=== PATIENT | female | born 1955 | race Caucasian/White ===

== ENCOUNTER 2020-03-20 10:56 | Emergency (ER) | payer MEDICAID, SELFPAY ==
[2020-03-20 11:11] VITALS: BP 122/87; PULSE 61; PULSE 83; RESP 18; TEMP 36.6; O2SAT 97; O2SAT 99; BMI 17.5
--- NOTE | 2020-03-20 11:26 | ED_ITS ---
HPI - Nausea/Vomiting/Diarrhea General Chief complaint: Nausea/Vomiting/Diarrhea Stated complaint: NAUSEA/VOMITING,COVID + Time Seen by Provider: 03/20/20 11:15 History of Present Illness HPI Narrative: 64-year-old male Coronavirus positive on March 16. Presents today with having nausea vomiting diarrhea that is getting worse over the last 2 days. Minimal coughing. Minimal fever. Diarrhea is yellow in color. No recent antibiotics. No travel history. Patient is from home. Extreme generalized malaise. Positive nausea associated with the symptoms Related Data Previous Rx's Medication Instructions Recorded acetaminophen 650 mg 650 mg PO Q8H PRN #90 tab 12/31/19 tablet,extended release folic acid 1 mg tablet 1 mg PO DAILY #30 tab 12/31/19 ondansetron 4 mg PO TID PRN 5 Days #10 tab 03/20/20 Allergies Allergy/AdvReac Type Severity Reaction Status Date / Time No Known Allergies Allergy Mild Unverified 11/20/19 17:16 [facility] Past Medical History Medical History (Updated 03/20/20 @ 12:27 by Madalyn Lauren MD) High blood cholesterol HTN (hypertension) Social History Social History Alcohol intake: current Alcohol intake frequency: a few times a week Alcohol type: beer Smoking Status: Current every day smoker Use of substances other than those prescribed or required for medical reasons: Yes Substance Use Type: Marijuana Substance Use Frequency: Daily Advance Directives: No Advance Directives Information Provided: No Physical Exam Vital Signs: Vital Signs: Last Vital Signs Temp 97.9 F 03/20/20 11:41 Pulse 78 03/20/20 11:41 Resp 16 03/20/20 11:41 BP 132/84 03/20/20 11:41 Pulse Ox 99 03/20/20 11:41 Body Mass Index 17.5 MDM - Nausea/Vomiting/Diarrhea MDM Narrative Medical decision making narrative: Patient well-appearing O2 sat 99% on room air. Positive coronavirus with nausea vomiting diarrhea. Labs unremarkable. Given hydration Zofran for nausea. Symptomatic Bree improved. Will discharge patient home. Medical Records Attestation: I reviewed the patient's medical records. Lab Data Attestation: I reviewed the patient's lab results. Result diagrams: 03/20/20 11:40 03/20/20 11:40 Labs: Lab Results 01/16/21 01/16/21 Range/Units 11:40 11:40 WBC 4.7 L (4.8-10.8) X10*3/uL RBC 4.45 (4.20-5.50) X10*6/uL Hgb 14.7 (12.0-16.0) g/dl Hct 42.9 (37-47) % MCV 96.4 (80-98) fL MCH 33.0 (27.0-33.0) pg MCHC 34.3 (31.0-35.0) g/dl RDW 11.4 (11.0-16.0) % Plt Count 235 (160-400) X10*3/uL MPV 9.2 L (9.4-12.3) fL Immature Gran % (Auto) 0.2 (0.0-0.4) % Neut % (Auto) 67.1 (45-73) % Lymph % (Auto) 20.9 (20-40) % [place] % (Auto) 11.6 H (2-11) % Eos % (Auto) 0.0 (0-4) % Baso % (Auto) 0.2 (0-2) % Lymph # (Auto) 1.0 L (1.2-4.9) X10*3/uL [place] # (Auto) 0.6 (0.1-1.2) X10*3/uL Eos # (Auto) 0.0 (0.0-0.4) X10*3/uL Baso # (Auto) 0.0 (0.0-0.2) X10*3/uL Abs Immat Gran (auto) 0.01 (0.00-0.03) X10*3/uL Absolute Neuts (auto) 3.2 (2.0-8.3) X10*3/uL Absolute Nucleated RBC 0.000 (0.0-0.012) X10*3/uL Nucleated RBC % (auto) 0.0 (0.0-0.2) /100WBC Sodium 132 L (135-145) mmol/L Potassium 4.2 (3.3-5.1) mmol/l Chloride 95 L (96-108) mmol/L Carbon Dioxide 24 (22-29) mmol/L Anion Gap 17 (12-20) BUN 15 (9-16) mg/dL Creatinine 0.98 (0.5-1.4) mg/dL Estim Creat Clear Calc 42.2 Estimated GFR 58 Random Glucose 126 H (60-115) mg/dL Calcium 8.9 (8.4-10.2) mg/dL Total Bilirubin 0.3 (0.0-1.0) mg/dL Direct Bilirubin < 0.2 (0.0-0.5) mg/dL AST 23 (5-31) U/L ALT 12 (0-31) U/L Alkaline Phosphatase 108 (39-117) U/L Total Protein 7.0 (6.5-8.0) g/dL Albumin 4.1 (3.5-5.0) g/dL Discharge Plan Discharge Clinical Impression: COVID-19, Diarrhea Patient Disposition: Home, Self-Care Instructions: Dehydration (ED), COVID-19 (Coronavirus Disease 2019) (ED) Prescriptions: New ondansetron 4 mg tablet,disintegrating 4 mg PO TID PRN (Reason: nausea and vomiting) 5 Days Qty: 10 RF: 0 No Action folic acid 1 mg tablet 1 mg PO DAILY Qty: 30 RF: 6 acetaminophen 650 mg tablet extended release 650 mg PO Q8H PRN (Reason: pain) Qty: 90 RF: 5 Referrals: [facility] [Primary Care Provider] - 2 days
[2020-03-20 11:41] VITALS: BP 132/84; PULSE 78; RESP 16; TEMP 36.6; O2SAT 99
[2020-03-20 11:49] LABS: MANUAL DIFF FLAG NO
[2020-03-20] MEDS: 0.9 % Sodium Chloride 1,000 ML 999 ML IV (11:50)
[2020-03-20 11:51] LABS: Basophils Percent Auto 0.2 % (0-2); Hematocrit 42.9 % (37-47); Hemoglobin 14.7 g/dl (12.0-16.0); Imm Gran Abs Auto 0.01 X10*3/uL (0.00-0.03); Imm Gran Pct Auto 0.2 % (0.0-0.4); Lymphocytes Percent Auto 20.9 % (20-40); Mean Corpuscular HGB Conc 34.3 g/dl (31.0-35.0); Mean Corpuscular Volume 96.4 fL (80-98); Mean Platelet Volume 9.2 fL (9.4-12.3); Monocytes Absolute Auto 0.6 X10*3/uL (0.1-1.2); Monocytes Percent Auto 11.6 % (2-11); Neutrophils Absolute Auto 3.2 X10*3/uL (2.0-8.3); Neutrophils Percent Auto 67.1 % (45-73); Platelet Count 235 X10*3/uL (160-400); Red Blood Count 4.45 X10*6/uL (4.20-5.50); Red Cell Distribution Width 11.4 % (11.0-16.0); White Blood Count 4.7 X10*3/uL (4.8-10.8)
[2020-03-20 12:13] LABS: Alanine Aminotransferase 12 U/L (0-31); Albumin Level 4.1 g/dL (3.5-5.0); Alkaline Phosphatase 108 U/L (39-117); Anion Gap 17 (12-20); Aspartate Amino Transferase 23 U/L (5-31); Bilirubin Direct < 0.2 mg/dL (0.0-0.5); Bilirubin Total 0.3 mg/dL (0.0-1.0); Blood Urea Nitrogen 15 mg/dL (9-16); Calcium 8.9 mg/dL (8.4-10.2); Carbon Dioxide 24 mmol/L (22-29); Chloride 95 mmol/L (96-108); Creatinine Clr Calc Pharmacy 42.2; Estimated Glomerular Filt Rate 58; Glucose Random 126 mg/dL (60-115); Potassium 4.2 mmol/l (3.3-5.1); Sodium 132 mmol/L (135-145)
[2020-03-20 13:47] VITALS: BP 148/96; PULSE 60; RESP 18; TEMP 37.3; O2SAT 99
[2020-03-20 14:00] VITALS: BP 132/77; PULSE 67; RESP 16; TEMP 37.2; O2SAT 99
== END 2020-03-20 14:25 | disposition home or self-care (01) ==
PROVIDERS: Emergency Provider Emergency Medicine Emergency Medical Services
DX: U07.1 COVID-19 (principal); R11.2 Nausea with vomiting, unspecified; E86.0 Dehydration
CPT/HCPCS: 36415; 80048; 80076; 85025; 96361; 96374; 99284

== ENCOUNTER 2021-01-07 22:40 | Emergency (ER) | payer MEDICAID, SELFPAY ==
--- NOTE | 2021-01-07 23:17 | ECG_ITS ---
Test Reason : SVT Blood Pressure : / mmHG Vent. Rate : 100 BPM Atrial Rate : 100 BPM P-R Int : 146 ms QRS Dur : 090 ms QT Int : 328 ms P-R-T Axes : 068 052 075 degrees QTc Int : 423 ms Normal sinus rhythm Nonspecific ST abnormality RSR' or QR pattern in V1 suggests right ventricular conduction delay Abnormal ECG When compared with ECG of 29-JAN-2016 16:00, Vent. rate has increased BY [address] depression in Inferior leads Lateral leads is new Referred By: Kieran Diaz Electronically Signed By:PERFECTO CALDERON MD
--- NOTE | 2021-01-07 23:18 | ED_ITS ---
HPI - Arrhythmia/Palpitations General Chief Complaint: Chest Pain Stated Complaint: heart is racing Time Seen by Provider: 01/07/21 23:16 Source: patient, family and planner internship Mode of arrival: ambulatory Limitations: no limitations History of Present Illness HPI narrative: 65-year-old female came in for evaluation of palpitation. This is a 65-year-old female who just used 2 bags of cocaine IV then started to feel palpitations and her heart is racing. Patient declined chest pain or shortness of breath. Patient arrived to the emergency room heart rate was in the 170s but patient otherwise hemodynamically stable. Related Data Previous Rx's Medication Instructions Recorded ondansetron 4 mg disintegrating 4 mg PO TID PRN 5 Days #10 tab 03/20/20 tablet ondansetron 4 mg disintegrating 4 mg PO TID PRN 5 Days #10 tab 03/20/20 tablet acetaminophen 650 mg 650 mg PO Q8H #90 tab 07/06/20 tablet,extended release folic acid 1 mg tablet 1 mg PO DAILY #90 tab 07/06/20 Allergies Allergy/AdvReac Type Severity Reaction Status Date / Time No Known Allergies Allergy Mild Unverified 11/20/19 17:16 Review of Systems Review of Systems: All other systems are reviewed and are negative Constitutional: Reports as per HPI and Reports no additional constitutional complaints Eyes: Reports as per HPI and Reports no additional eye complaints Reports system reviewed and no additional complaints, except as documented Cardiovascular: Reports as per HPI and Reports no additional cardiovascular complaints Respiratory: Reports as per HPI and Reports no additional respiratory complaints Gastrointestinal: Reports as per HPI and Reports no additional gastrointestinal complaints Genitourinary: Reports no additional female genitourinary complaints Musculoskeletal: Reports no additional musculoskeletal complaints Skin/Breast: Reports system reviewed and no additional complaints, except as docu Psychiatric: Reports no additional psychiatric complaints Endocrine: Reports no additional endocrine complaints Hematologic/Lymphatic: Reports no additional hematologic/lymphatic complaints Allergic/Immunologic: Reports no additional allergic/immunologic complaints Reports system reviewed and no additional complaints, except as documented and Reports Abnormal speech present [facility] Past Medical History Medical History High blood cholesterol HTN (hypertension) Social History Social History Alcohol intake: current Alcohol intake frequency: a few times a week Alcohol type: beer Substance Use Type: Marijuana Advance Directives: No Advance Directives Information Provided: No Physical Exam Vital Signs: Vital Signs: Last Vital Signs Pulse 175 H 01/07/21 23:19 Resp 16 01/07/21 23:19 BP 102/75 01/07/21 23:19 Pulse Ox 98 01/07/21 23:19 Body Mass Index 19.1 Vital signs have been reviewed as appeared to be correct. Blood pressure normal. Heart rate tachycardia of 187 beats per minute Respiration rate normal. Temperature normal. Oxygen saturation normal. Appearance: Alert. Oriented X3. No acute distress. Anxious Head: Normal external exam. Normocephalic. Atraumatic. No Walter signs noted. No raccoon eyes noted Eyes: PERRLA. EOMI. Conjunctiva and sclera normal. Eyelids normal. ENT: TM's Normal. Pharynx normal. Uvula midline. Moist mucous membranes. No trismus noted. No drooling noted. No muffled voice noted. Neck: Normal inspection. Neck supple. FROM. No adenopathy. Thyroid Normal. No meningeal signs. No neck mass noted. CVS: Rapid tachycardia at 178 beats per minute. Heart sound normal. No murmurs noted. Pulses normal throughout. Respiratory: No respiratory distress. Painless inspiration. Breath sounds normal. No wheezes/rales/rhonchi noted. Chest nontender. No accessory muscle usage noted or decreased air movement noted. Abdomen: Soft and nontender. Bowel sounds normal in all 4 quadrants. No distention noted. No organomegaly noted. No visible injury noted. Back: No CVA tenderness. Full range of motion noted. Skin: Skin warm and dry. Normal skin color. Normal skin turgor. No rashes/lesions/lacerations noted. Extremities: No lower extremity edema. Extremities exhibit normal range of motion. Extremities nontender. Neuro: Oriented X 3. Cranial nerve exam: II-XII are grossly intact No motor deficit. No sensory deficit. Reflexes normal. Course Reevaluation(s) Reevaluation #1: Patient was placed on the vehicle monitor technician and a 6 mg of adenosine were injected, heart rate is slowing down in the 90s, no hypotension, no chest pain, no shortness of breath. Time: 23:23 MDM - Arrhythmia/Palpitations Medical Records Attestation: I reviewed the patient's medical records. Lab Data Attestation: I reviewed the patient's lab results. Result diagrams: 01/07/21 23:21 01/07/21 23:21 Labs: Lab Results 01/07/21 01/07/21 01/07/21 Range/Units 23:21 23:21 23:21 WBC 8.1 (4.8-10.8) X10*3/uL RBC 4.67 (4.20-5.50) X10*6/uL Hgb 15.1 (12.0-16.0) g/dl Hct 43.6 (37.0-47.0) % MCV 93.4 (80.0-98.0) fL MCH 32.3 (27.0-33.0) pg MCHC 34.6 (31.0-35.0) g/dl RDW 11.4 (11.0-16.0) % Plt Count 259 (160-400) X10*3/uL MPV 9.1 L (9.4-12.3) fL Immature Gran % (Auto) 0.2 (0.0-0.4) % Neut % (Auto) 52.5 (45-73) % Lymph % (Auto) 33.5 (20-40) % [place] % (Auto) 12.1 H (2-11) % Eos % (Auto) 1.2 (0-4) % Baso % (Auto) 0.5 (0-2) % Lymph # (Auto) 2.7 (1.2-4.9) X10*3/uL [place] # (Auto) 1.0 (0.1-1.2) X10*3/uL Eos # (Auto) 0.1 (0.0-0.4) X10*3/uL Baso # (Auto) 0.0 (0.0-0.2) X10*3/uL Abs Immat Gran (auto) 0.02 (0.00-0.03) X10*3/uL Absolute Neuts (auto) 4.3 (2.0-8.3) x10*3/uL Absolute Nucleated RBC 0.000 (0.0-0.012) X10*3/uL Nucleated RBC % (auto) 0.0 (0.0-0.2) /100WBC Sodium 132 L (135-145) mmol/L Potassium 3.7 (3.3-5.1) mmol/L Chloride 94 L (96-108) mmol/L Carbon Dioxide 20 L (22-29) mmol/L Anion Gap 22 H (12-20) BUN 18 H (9-16) mg/dL Creatinine 1.08 (0.5-1.4) mg/dL Estim Creat Clear Calc 41.2 Estimated GFR 51 Random Glucose 105 (60-115) mg/dL Calcium 9.9 D (8.4-10.2) mg/dL Magnesium 1.6 (1.6-2.6) mg/dL Total Bilirubin 0.3 (0.0-1.0) mg/dL Direct Bilirubin < 0.2 (0.0-0.5) mg/dL AST 29 (5-31) U/L ALT 14 (0-31) U/L Alkaline Phosphatase 117 (39-117) U/L Troponin I High Sens 7.8 (<3.5-17.0) ng/L Total Protein 7.7 (6.5-8.0) g/dL Albumin 4.5 (3.5-5.0) g/dL Lipase 87 H (8-78) U/L Critical Care Time Critical Care Time Critical Care Time: Yes Total Critical Care Time: 60 Attestation: I spent 60 minutes providing critical care service to the patient, this including time spent at the bedside to evaluate the patient, reassess the patient, monitoring vital signs, review labs, and radiographic studies, counseling the patient/family, discussing the case with consultants, disposition the patient. Discharge Plan Discharge Clinical Impression: Substance abuse, SVT (supraventricular tachycardia) Patient Disposition: Home, Self-Care Instructions: Polysubstance Abuse (ED) Prescriptions: No Action acetaminophen 650 mg tablet extended release 650 mg PO Q8H Qty: 90 RF: 5 folic acid 1 mg tablet 1 mg PO DAILY Qty: 90 RF: 1 ondansetron 4 mg tablet,disintegrating 4 mg PO TID PRN (Reason: nausea and vomiting) 5 Days Qty: 10 RF: 0 ondansetron 4 mg tablet,disintegrating 4 mg PO TID PRN (Reason: nausea and vomiting) 5 Days Qty: 10 RF: 0 Referrals: Physician,Unknown J [Primary Care Provider] - 2 days
[2021-01-07 23:19] VITALS: BP 102/75; PULSE 175; RESP 16; O2SAT 98; BMI 19.1
--- NOTE | 2021-01-07 23:24 | PC.NURSE ---
pt a&o, denies sob or chest pain. report doing cocaine this evening. heart started racing, heart rate in the 175. Ekg, Iv placed, labs collected and sent. Medicated per may. pt coverted into the a heart rate of 77-80's. pt on bedside monitor . Will continue to monitor.
[2021-01-07 23:27] LABS: MANUAL DIFF FLAG NO
[2021-01-07] MEDS: LORazepam 2 MG/ML VIAL 0.5 MG IVPUSH (23:31)
[2021-01-07] MEDS: Adenosine 6 MG/2 ML VIAL IVPUSH (23:31)
[2021-01-07] MEDS: 0.9 % Sodium Chloride 1,000 ML 999 ML IVCONT (23:31)
[2021-01-07 23:43] LABS: Basophils Percent Auto 0.5 % (0-2); Eosinophils Absolute Auto 0.1 X10*3/uL (0.0-0.4); Eosinophils Percent Auto 1.2 % (0-4); Hematocrit 43.6 % (37.0-47.0); Hemoglobin 15.1 g/dl (12.0-16.0); Imm Gran Abs Auto 0.02 X10*3/uL (0.00-0.03); Imm Gran Pct Auto 0.2 % (0.0-0.4); Lymphocytes Absolute Auto 2.7 X10*3/uL (1.2-4.9); Lymphocytes Percent Auto 33.5 % (20-40); Mean Corpuscular HGB Conc 34.6 g/dl (31.0-35.0); Mean Corpuscular Hemoglobin 32.3 pg (27.0-33.0); Mean Corpuscular Volume 93.4 fL (80.0-98.0); Mean Platelet Volume 9.1 fL (9.4-12.3); Monocytes Percent Auto 12.1 % (2-11); Neutrophils Absolute Auto 4.3 x10*3/uL (2.0-8.3); Neutrophils Percent Auto 52.5 % (45-73); Platelet Count 259 X10*3/uL (160-400); Red Blood Count 4.67 X10*6/uL (4.20-5.50); Red Cell Distribution Width 11.4 % (11.0-16.0); White Blood Count 8.1 X10*3/uL (4.8-10.8)
[2021-01-07 23:46] LABS: Alanine Aminotransferase 14 U/L (0-31); Albumin Level 4.5 g/dL (3.5-5.0); Alkaline Phosphatase 117 U/L (39-117); Anion Gap 22 (12-20); Aspartate Amino Transferase 29 U/L (5-31); Bilirubin Direct < 0.2 mg/dL (0.0-0.5); Bilirubin Total 0.3 mg/dL (0.0-1.0); Blood Urea Nitrogen 18 mg/dL (9-16); Calcium 9.9 mg/dL (8.4-10.2); Carbon Dioxide 20 mmol/L (22-29); Chloride 94 mmol/L (96-108); Creatinine Clr Calc Pharmacy 41.2; Estimated Glomerular Filt Rate 51; Glucose Random 105 mg/dL (60-115); Lipase 87 U/L (8-78); Magnesium 1.6 mg/dL (1.6-2.6); Potassium 3.7 mmol/L (3.3-5.1); Sodium 132 mmol/L (135-145); Total Protein 7.7 g/dL (6.5-8.0)
[2021-01-08 00:02] LABS: Troponin-I High Sensitivity 7.8 ng/L (<3.5-17.0)
[2021-01-08 00:48] VITALS: BP 102/69; PULSE 87; RESP 17; O2SAT 98
== END 2021-01-08 01:10 | disposition home or self-care (01) ==
PROVIDERS: Emergency Provider Emergency Medicine
DX: F11.10 Opioid abuse, uncomplicated (principal); I47.1 Supraventricular tachycardia; R00.2 Palpitations; E78.5 Hyperlipidemia, unspecified; I10 Essential (primary) hypertension; F17.200 Nicotine dependence, unspecified, uncomplicated
CPT/HCPCS: 36415; 80048; 80076; 83690; 83735; 84484; 85025; 93005; 96361; 96374; 96375; 99285; 99291; J0153; J2060

== ENCOUNTER 2021-01-21 12:35 | Outpatient (REF) | payer MEDICAID, SELFPAY ==
--- NOTE | ~2021-01-21 | MM_ITS ---
EXAMINATION: MM SCREENING DIGITAL BREAST TOMOSYNTHESIS, BILATERAL CLINICAL INFORMATION: Screening. Asymptomatic. Benign right stereotactic biopsy 11/22/2017 (Breast parenchyma with adenosis, fibroadenomatous change and microcalcifications; no atypia or carcinoma seen). Prior left excisional biopsy 06/06/2006. The lifetime risk of breast cancer based on the Tyrer-Cuzick Model is 6%. COMPARISON: Mammography: 10/03/2019, 06/11/2018, 11/22/2017, 11/07/2017, 10/31/2017, 10/24/2016 TECHNIQUE: Digital breast tomosynthesis is performed in both the craniocaudal and mediolateral oblique views along with computer-aided detection (CAD). Synthesized 2D images are generated from the tomosynthesis. FINDINGS: The breasts are heterogeneously dense, which may obscure small masses (ACR BI-RADS breast composition Category c). Parenchymal pattern is similar to prior exams. There is old stable scarring left breast anterior 12:00 position. Right breast again has biopsy clip marker mid posterior 3:00 position. Neither breast shows interval mass or architectural abnormality or developing density. No abnormal calcifications. No significant changes. MM/MM tomosynthesis screening BI IMPRESSION: No significant changes from prior studies. ASSESSMENT: BI-RADS 2: Benign RECOMMENDATION: Routine annual mammography screening. This patient's information was entered into a reminder system with a target due date for their next mammogram.
== END 2021-01-21 12:36 | disposition home or self-care (01) ==
LOC: HO.MAMMO 12:35
PROVIDERS: Visit Provider Internal Medicine
DX: Z12.31 Encounter for screening mammogram for malignant neoplasm of breast (principal)
CPT/HCPCS: 77063; 77067

== ENCOUNTER 2021-10-19 09:17 | Emergency (ER) | payer MEDICAID, SELFPAY ==
[2021-10-19 09:24] VITALS: BP 166/93; PULSE 56; RESP 16; TEMP 36.2; O2SAT 97; BMI 21.5
--- NOTE | 2021-10-19 09:33 | ED.GENADULT ---
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 Patient reports that she lives alone and has had no sick contacts. She endorses a headache that began shortly after the diarrhea started. She reports an elevated blood pressure yesterday. Patient denies fever, chills, vision changes, lightheadedness, dizziness, chest pain, cough, shortness of breath, constipation, or abdominal pain. Onset (ago): day(s) Radiation: non-radiation Severity: mild Severity scale (1-10): 1 Pain Consistency: intermittent Relieving factors: none Exacerbating factors: none Associated symptoms: nausea/vomiting Treatments prior to arrival: none Related Data Previous Rx's Medication Instructions Recorded ondansetron 4 mg disintegrating 4 mg PO TID PRN nausea and 03/20/20 tablet vomiting 5 days #10 tabs ondansetron 4 mg disintegrating 4 mg PO TID PRN nausea and 03/20/20 tablet vomiting 5 days #10 tabs acetaminophen 650 mg 650 mg PO Q8H #90 tabs 07/06/20 tablet,extended release folic acid 1 mg tablet 1 mg PO DAILY #90 tabs 07/06/20 Allergies Allergy/AdvReac Type Severity Reaction Status Date / Time No Known Allergies Allergy Mild Unverified 11/20/19 17:16 Review of Systems Constitutional: Constitutional: Reports no additional constitutional complaints, Denies chills, Denies fever(s), Reports headache(s) and Denies night sweats Eyes: Eyes: Reports no additional eye complaints, Denies blurry vision, Denies change in vision, Denies diplopia, Denies eye discharge, Denies loss of vision and Denies eye pain ENT: Denies dizziness and Reports headache(s) Cardiovascular: Cardiovascular: Reports no additional cardiovascular complaints, Denies chest pain, Denies lightheadedness, Denies Loss of Consciousness and Denies dyspnea Respiratory: Respiratory: Reports no additional respiratory complaints and Denies dyspnea Gastrointestinal: Gastrointestinal: Reports no additional gastrointestinal complaints, Denies abdominal pain, Denies melena, Denies hematochezia, Denies change in bowel habits, Reports diarrhea, Reports nausea and Reports vomiting Genitourinary: Genitourinary: Denies hematuria, Denies urinary frequency, Denies dysuria, Denies urinary incontinence, Denies urinary hesitancy and Denies urinary urgency Musculoskeletal: Musculoskeletal: Reports no additional musculoskeletal complaints, Denies numbness and Denies tingling Neurologic: Denies dizziness, Reports headache(s), Denies loss of vision, Denies numbness and Denies tingling Psychiatric: Psychiatric: Reports no additional psychiatric complaints Endocrine: Endocrine: Reports no additional endocrine complaints Hematologic/Lymphatic: Hematologic/Lymphatic: Reports no additional hematologic/lymphatic complaints Allergic/Immunologic: Allergic/Immunologic: Reports no additional allergic/immunologic complaints PMFSH Past Medical History Attestation statement: The following information was validated with the patient. Source: old records reviewed Medical History High blood cholesterol HTN (hypertension) Social History Social History Alcohol intake: current Alcohol intake frequency: 0-2 drinks per day Alcohol type: beer Patient Tobacco Use Status: Current everyday Tobacco user Smoked in Last 30 Days: Yes Substance Use Type: Marijuana Advance Directives: No Advance Directives Information Provided: Yes Patient : No Physical Exam ED Vital Signs: Vital Signs - 24 hr 10/19/21 09:24 10/19/21 09:57 10/19/21 11:03 Temperature 97.1 F 98.6 F Pulse Rate 56 52 58 Respiratory Rate 16 16 16 Blood Pressure 166/93 H 138/84 152/97 H Pulse Oximetry 97 98 98 Oxygen Delivery Method Room Air Room Air Room Air 10/19/21 12:33 Temperature Pulse Rate 55 Respiratory Rate 20 Blood Pressure 168/94 H Pulse Oximetry 99 Oxygen Delivery Method Room Air BMI result Body Mass Index 21.5 Const General: cooperative, no acute distress, alert and awake Nutritional Appearance: well nourished Orientation/consciousness: patient oriented x3 Limitations: no limitations HENMT Head: Yes normal to inspection and Yes atraumatic Ears: hearing grossly normal bilaterally and external ears normal General nose exam: Normal external nose present, no nasal discharge noted and no epistaxis Face and sinus: Yes normal facial exam, No abrasion and No laceration Mouth: Normal oral and palatal mucosa present, no drooling and no muffled voice Eyes General: appearance normal, both eyes and all related structures Periorbital: periorbital findings normal Eyelids: Yes eyelids normal Conjunctivae: conjunctivae normal Pupils: Equal, round and reactive pupils present EOM: EOMs intact bilaterally Neck Neck: Yes normal visual inspection, Yes full ROM and Yes no lymphadenopathy Chest Chest palpation & inspection: normal inspection of the chest Resp Effort & Inspection: normal respiratory effort and able to speak in complete sentences Auscultation: clear to auscultation bilaterally Cardio Rate: regular rate Rhythm: regular rhythm GI Inspection: Yes normal to inspection Palpation (GI): Soft to palpation, not firm, nontender, no guarding and not rigid Neuro General: patient oriented x3 and moves all extremities Cranial nerves: Yes Equal, round and reactive pupils present Cognition (Neuro): normal cognition Motor exam (neuro): 5/5 motor strength present throughout Sensory Exam: Normal double simultaneous stimulation for sensation Extrem General: Yes normal to inspection, Yes full ROM and Yes capillary refill normal Psych Appearance: grossly normal Mental Status: mental status grossly normal Affect: normal affect Attitude: cooperative Thought process: Normal thought process present Thought content: Normal thought content present Insight: Good insight present (Psych) Medical Decision Making MDM Narrative Medical decision making narrative: Patient is a 66 year old female presenting to the emergency department today with nausea and vomiting. Patient's physical exam was unremarkable. Patient's blood work showed a slightly elevated potassium but was otherwise unremarkable. Patient's EKG was unremarkable. I explained my physical exam findings as well as all test results to the patient. I answered all questions asked by the patient. Patient received IV fluids and lokalema which she stated helped her symptoms significantly. I stressed the importance of the patient taking her medication as prescribed. I stressed the importance of the patient following up with her primary care provider. I stressed the importance of the patient returning to the emergency department immediately if her symptoms were to worsen or if she were to develop any dizziness, shortness of breath, difficulty breathing, chest pain, blurry vision, loss of vision, nausea, vomiting, abdominal pain, fever, chills, back pain, or any other complaints. Patient verbalized agreement and understanding with this treatment plan and discharge. Differential Diagnosis Differential Diagnosis: viral illness Medical Records Medical records reviewed: Yes I reviewed the patient's medical records. Lab Data Lab results reviewed: Yes I reviewed the patient's lab results. Result diagrams: 10/19/21 10:14 10/19/21 10:14 Labs: Lab Results 10/19/21 10/19/21 10/19/21 Range/Units 10:14 10:14 10:14 WBC 7.5 (4.8-10.8) X10*3/uL RBC 4.58 (4.20-5.50) X10*6/uL Hgb 15.1 (12.0-16.0) g/dl Hct 44.4 (37.0-47.0) % MCV 96.9 (80.0-98.0) fL MCH 33.0 (27.0-33.0) pg MCHC 34.0 (31.0-35.0) g/dl RDW 12.1 (11.0-16.0) % Plt Count 314 (160-400) X10*3/uL MPV 8.9 L (9.4-12.3) fL Immature Gran % (Auto) 0.4 (0.0-0.4) % Neut % (Auto) 60.7 (45-73) % Lymph % (Auto) 25.8 (20-40) % [place] % (Auto) 10.7 (2-11) % Eos % (Auto) 1.7 (0-4) % Baso % (Auto) 0.7 (0-2) % Lymph # (Auto) 1.9 (1.2-4.9) X10*3/uL [place] # (Auto) 0.8 (0.1-1.2) X10*3/uL Eos # (Auto) 0.1 (0.0-0.4) X10*3/uL Baso # (Auto) 0.1 (0.0-0.2) X10*3/uL Abs Immat Gran (auto) 0.03 (0.00-0.03) X10*3/uL Absolute Neuts (auto) 4.5 (2.0-8.3) x10*3/uL Absolute Nucleated RBC 0.000 (0.0-0.012) X10*3/uL Nucleated RBC % (auto) 0.0 (0.0-0.2) /100WBC Sodium 138 (135-145) mmol/L Potassium 5.5 H D (3.3-5.1) mmol/L Chloride 101 (96-108) mmol/L Carbon Dioxide 27 (22-29) mmol/L Anion Gap 16 (12-20) BUN 20 H (9-16) mg/dL Creatinine 0.94 (0.5-1.4) mg/dL Estim Creat Clear Calc 50.0 Estimated GFR 60 Random Glucose 95 (60-115) mg/dL Calcium 9.6 (8.4-10.2) mg/dL Magnesium 1.7 (1.6-2.6) mg/dL Total Bilirubin 0.6 (0.0-1.0) mg/dL AST 21 (5-31) U/L ALT 10 (0-31) U/L Alkaline Phosphatase 135 H (39-117) U/L Troponin I High Sens < 3.5 (<3.5-17.0) ng/L Total Protein 7.6 (6.5-8.0) g/dL Albumin 4.3 (3.5-5.0) g/dL COVID-19 ([facility]) (Negative) COVID-19 Clin Com 10/19/21 Range/Units 10:14 WBC (4.8-10.8) X10*3/uL RBC (4.20-5.50) X10*6/uL Hgb (12.0-16.0) g/dl Hct (37.0-47.0) % MCV (80.0-98.0) fL MCH (27.0-33.0) pg MCHC (31.0-35.0) g/dl RDW (11.0-16.0) % Plt Count (160-400) X10*3/uL MPV (9.4-12.3) fL Immature Gran % (Auto) (0.0-0.4) % Neut % (Auto) (45-73) % Lymph % (Auto) (20-40) % [place] % (Auto) (2-11) % Eos % (Auto) (0-4) % Baso % (Auto) (0-2) % Lymph # (Auto) (1.2-4.9) X10*3/uL [place] # (Auto) (0.1-1.2) X10*3/uL Eos # (Auto) (0.0-0.4) X10*3/uL Baso # (Auto) (0.0-0.2) X10*3/uL Abs Immat Gran (auto) (0.00-0.03) X10*3/uL Absolute Neuts (auto) (2.0-8.3) x10*3/uL Absolute Nucleated RBC (0.0-0.012) X10*3/uL Nucleated RBC % (auto) (0.0-0.2) /100WBC Sodium (135-145) mmol/L Potassium (3.3-5.1) mmol/L Chloride (96-108) mmol/L Carbon Dioxide (22-29) mmol/L Anion Gap (12-20) BUN (9-16) mg/dL Creatinine (0.5-1.4) mg/dL Estim Creat Clear Calc Estimated GFR Random Glucose (60-115) mg/dL Calcium (8.4-10.2) mg/dL Magnesium (1.6-2.6) mg/dL Total Bilirubin (0.0-1.0) mg/dL AST (5-31) U/L ALT (0-31) U/L Alkaline Phosphatase (39-117) U/L Troponin I High Sens (<3.5-17.0) ng/L Total Protein (6.5-8.0) g/dL Albumin (3.5-5.0) g/dL COVID-19 ([facility]) Negative (Negative) COVID-19 Clin Com See Note ECG Data Attestation: I personally reviewed and interpreted this ECG as follows: Prior ECG tracings: available for review Interpretation: Vent. Rate: 049 BPM ? ? Atrial Rate: 049 BPM P-R Int: 150 ms? QRS Dur: 080 ms QT Int: 438 ms ? ? ? P-R-T Axes: 070 039 043 degrees QTc Int: 395 ms ? Sinus bradycardia Otherwise normal ECG When compared with ECG of 07-JAN-2021 23:16, Vent. rate has decreased BY? [address] no longer depressed in Lateral leads T wave amplitude has increased in Lateral leads DD/ [id number] Discharge Plan Discharge Clinical Impression: Diarrhea, Acute hyperkalemia Patient Disposition: Home, Self-Care Instructions: Hyperkalemia (ED), Acute Diarrhea (ED) Additional Instructions: Follow up with your primary care provider. Return to the emergency department immediately if your symptoms worsen or if you develop any dizziness, shortness of breath, difficulty breathing, chest pain, blurry vision, loss of vision, nausea, vomiting, abdominal pain, fever, chills, back pain, or any other complaints. Prescriptions: No Action acetaminophen 650 mg tablet extended release 650 mg PO Q8H Qty: 90 5RF folic acid 1 mg tablet 1 mg PO DAILY Qty: 90 1RF ondansetron 4 mg tablet,disintegrating 4 mg PO TID PRN (Reason: nausea and vomiting) 5 Days Qty: 10 0RF ondansetron 4 mg tablet,disintegrating 4 mg PO TID PRN (Reason: nausea and vomiting) 5 Days Qty: 10 0RF Referrals: [facility] [place] Family Medicine [Provider Group] (Call to establish and follow up with a primary care provider. If you already have a primary care provider, please follow up with them. ) [facility] [place] [facility] [Provider Group] (Call to establish and follow up with a primary care provider. If you already have a primary care provider, please follow up with them. ) [facility] [place] Primary Care,[facility] [Provider Group] (Call to establish and follow up with a primary care provider. If you already have a primary care provider, please follow up with them. ) Stand Alone Forms: Work/School Release Interventions: ED Discharge Assessment Last Done: 10/19/21 12:35 Discharge Date/Time: 10/19/21 12:40 Print Language: Sammarinese
--- NOTE | 2021-10-19 09:42 | ECG_ITS ---
Test Reason : Epigastric Pain Blood Pressure : / mmHG Vent. Rate : 049 BPM Atrial Rate : 049 BPM P-R Int : 150 ms QRS Dur : 080 ms QT Int : 438 ms P-R-T Axes : 070 039 043 degrees QTc Int : 395 ms Sinus bradycardia Otherwise normal ECG When compared with ECG of 07-JAN-2021 23:16, Vent. rate has decreased BY [address] no longer depressed in Lateral leads T wave amplitude has increased in Lateral leads Referred By: Desiree Mcmullen Electronically Signed By:DAHIANA ALBARRAN
[2021-10-19 09:57] VITALS: BP 138/84; PULSE 52; RESP 16; TEMP 37; O2SAT 98
[2021-10-19] MEDS: 0.9 % Sodium Chloride 1,000 ML 999 ML IV (10:07)
[2021-10-19] MEDS: ondansetron HCL 4 MG/2 ML VIAL IVPUSH (10:20)
[2021-10-19 10:44] LABS: MANUAL DIFF FLAG NO
[2021-10-19 10:45] LABS: Basophils Absolute Auto 0.1 X10*3/uL (0.0-0.2); Basophils Percent Auto 0.7 % (0-2); Eosinophils Absolute Auto 0.1 X10*3/uL (0.0-0.4); Eosinophils Percent Auto 1.7 % (0-4); Hematocrit 44.4 % (37.0-47.0); Hemoglobin 15.1 g/dl (12.0-16.0); Imm Gran Abs Auto 0.03 X10*3/uL (0.00-0.03); Imm Gran Pct Auto 0.4 % (0.0-0.4); Lymphocytes Absolute Auto 1.9 X10*3/uL (1.2-4.9); Lymphocytes Percent Auto 25.8 % (20-40); Mean Corpuscular Volume 96.9 fL (80.0-98.0); Mean Platelet Volume 8.9 fL (9.4-12.3); Monocytes Absolute Auto 0.8 X10*3/uL (0.1-1.2); Monocytes Percent Auto 10.7 % (2-11); Neutrophils Absolute Auto 4.5 x10*3/uL (2.0-8.3); Neutrophils Percent Auto 60.7 % (45-73); Platelet Count 314 X10*3/uL (160-400); Red Blood Count 4.58 X10*6/uL (4.20-5.50); Red Cell Distribution Width 12.1 % (11.0-16.0); White Blood Count 7.5 X10*3/uL (4.8-10.8)
[2021-10-19 11:01] LABS: COVID-19 Test Negative (Negative); IDNOW Serial# 16C4AD1C
[2021-10-19 11:02] LABS: Alanine Aminotransferase 10 U/L (0-31); Albumin Level 4.3 g/dL (3.5-5.0); Alkaline Phosphatase 135 U/L (39-117); Anion Gap 16 (12-20); Aspartate Amino Transferase 21 U/L (5-31); Bilirubin Total 0.6 mg/dL (0.0-1.0); Blood Urea Nitrogen 20 mg/dL (9-16); Calcium 9.6 mg/dL (8.4-10.2); Carbon Dioxide 27 mmol/L (22-29); Chloride 101 mmol/L (96-108); Estimated Glomerular Filt Rate 60; Glucose Random 95 mg/dL (60-115); Magnesium 1.7 mg/dL (1.6-2.6); Potassium 5.5 mmol/L (3.3-5.1); Sodium 138 mmol/L (135-145); Total Protein 7.6 g/dL (6.5-8.0)
[2021-10-19 11:03] VITALS: BP 152/97; PULSE 58; RESP 16; O2SAT 98
[2021-10-19 11:08] LABS: Troponin-I High Sensitivity < 3.5 ng/L (<3.5-17.0)
[2021-10-19] MEDS: Sodium Zirconium Cyclosilicate 5 GM POWD.PACK PO (11:53)
[2021-10-19 12:33] VITALS: BP 168/94; PULSE 55; RESP 20; O2SAT 99
== END 2021-10-19 12:40 | disposition home or self-care (01) ==
PROVIDERS: Physician Assistant Medical; Emergency Provider Emergency Medicine
DX: R19.7 Diarrhea, unspecified (principal); E87.5 Hyperkalemia; Z20.822 Contact with and (suspected) exposure to COVID-19; R11.2 Nausea with vomiting, unspecified; I10 Essential (primary) hypertension; E78.5 Hyperlipidemia, unspecified; F17.200 Nicotine dependence, unspecified, uncomplicated; F12.90 Cannabis use, unspecified, uncomplicated
CPT/HCPCS: 80053; 83735; 84484; 85025; 87635; 93005; 96361; 96374; 99284; J2405

== ENCOUNTER 2022-07-07 12:46 | Outpatient (REF) | payer MEDICAID, SELFPAY ==
--- NOTE | ~2022-07-07 | MM_ITS ---
EXAMINATION: MM SCREENING DIGITAL BREAST TOMOSYNTHESIS, BILATERAL CLINICAL INFORMATION: Screening. Asymptomatic. Benign right stereotactic biopsy 11/22/2017; prior left excisional biopsy 06/06/2006. The lifetime risk of breast cancer based on the Tyrer-Cuzick Model is 13%. COMPARISON: Multiple prior mammography exams including most recent mammography 01/21/2021. TECHNIQUE: Digital breast tomosynthesis is performed in both the craniocaudal and mediolateral oblique views along with computer-aided detection (CAD). Synthesized 2D images are generated from the tomosynthesis. FINDINGS: The breasts are heterogeneously dense, which may obscure small masses (ACR BI-RADS breast composition Category c). Parenchymal pattern is similar to prior studies and there is no developing density or interval architectural abnormality or abnormal calcifications. Again, there is biopsy clip marker mid 3:00 right breast with some adjacent benign coarse calcifications. There are other scattered bilateral benign vascular and some coarse calcifications in both breasts. Old scarring again seen anterior left breast consistent with the prior excisional biopsy. The axilla are unremarkable. No significant changes. MM/MM tomosynthesis screening BI IMPRESSION: No significant changes from prior exams. No mammographic evidence of malignancy. ASSESSMENT: BI-RADS 2: Benign RECOMMENDATION: Routine annual mammography screening. This patient's information was entered into a reminder system with a target due date for their next mammogram.
== END 2022-07-07 12:47 | disposition home or self-care (01) ==
LOC: HO.MAMMO 12:46
PROVIDERS: PCP Internal Medicine; Visit Provider Internal Medicine
DX: Z12.31 Encounter for screening mammogram for malignant neoplasm of breast (principal)
CPT/HCPCS: 77063; 77067

== ENCOUNTER 2022-08-11 13:20 | Outpatient (REF) | payer MEDICAID, SELFPAY ==
--- NOTE | ~2022-08-11 | MM_ITS ---
EXAMINATION: BONE DENSITOMETRY CLINICAL INDICATION: Osteopenia. COMPARISON: Baseline BD dated 03/29/2010. TECHNIQUE: Using a [employer] DXA System (software version: 13.1) manufactured by [employer], dual-energy x-ray absorptiometry was performed of the lumbar spine and left hip. The images are of good technical quality. Summary results are attached. FINDINGS: AP SPINE L1-L4: Current: BMD 1.095 g/cm2, Z-score 1.1, T-score -0.7, normal, 5.4% increase from baseline (<5% change is not significant). Baseline: BMD 1.039 g/cm2. LEFT FEMUR, NECK: Current: BMD 0.803 g/cm2, Z-score -0.1, T-score -1.7, osteopenia. Baseline: BMD 0.921 g/cm2. LEFT FEMUR, TOTAL: Current: BMD 0.823 g/cm2, Z-score -0.1, T-score -1.5, osteopenia, 2.4% decrease from baseline (<5% change is not significant). Baseline: BMD 0.843 g/cm2. IDENTIFIED RISK FACTORS: Height loss, tobacco use (current smoker). HISTORY OF FRACTURE: None listed. MEDICATIONS: None listed. MM/XR DEXA axial skeleton IMPRESSION: 1. DIAGNOSIS: Osteopenia based on the lowest T-score value of -1.7 in the femoral neck applying World Health Organization criteria. 2. 10-YEAR FRACTURE RISK PREDICTION, FRAX: Major osteoporotic fracture (clinical spine, forearm, hip or shoulder) 5.3%. Hip fracture 1.1%. 3. Treatment Recommendations: NOF guidelines recommend consideration for treatment in postmenopausal women and men age 50 and older presenting with the following: -A hip or vertebral (clinical or morphometric) fracture. -T-score less than or equal to -2.5 at the femoral neck or spine after appropriate evaluation to exclude secondary causes. -Low bone mass at the hip or spine and a 10-year fracture probability by FRAX of greater than or equal to 3% for hip fracture or greater than or equal to 20% for major osteoporotic fracture based on the [place] adapted WHO algorithm. 4. Other Recommendations: All treatment decisions require clinical judgment and consideration of individual patient factors, including patient preferences, comorbidities, previous drug use, risk factors not captured in the FRAX model (e.g. frailty, falls, vitamin D deficiency, increased bone turnover, interval significant decline in bone density) and possible under or overestimation of fracture risk by FRAX. Additional medical evaluation for secondary cause of low bone mineral density may be appropriate. FUTURE SCAN RECOMMENDATION: People with diagnosed cases of osteoporosis or at high risk for fracture should have regular bone mineral density tests. For patients eligible for Medicare, routine testing is allowed once every 2 years. The testing frequency can be increased to one year for patients who have rapidly progressing disease, those who are receiving or discontinuing medical therapy to restore bone mass, or have additional risk factors.
== END 2022-08-11 13:21 | disposition home or self-care (01) ==
LOC: HO.MAMMO 13:20
PROVIDERS: PCP Internal Medicine; Visit Provider Internal Medicine
DX: Z13.820 Encounter for screening for osteoporosis (principal); Z78.0 Asymptomatic menopausal state; M89.9 Disorder of bone, unspecified
CPT/HCPCS: 77080

== ENCOUNTER 2022-09-13 08:48 | Outpatient (REF) | payer MEDICAID, SELFPAY ==
[2022-09-13 11:24] LABS: MANUAL DIFF FLAG NO
[2022-09-13 11:37] LABS: Basophils Absolute Auto 0.1 X10*3/uL (0.0-0.2); Basophils Percent Auto 0.7 % (0-2); Eosinophils Absolute Auto 0.2 X10*3/uL (0.0-0.4); Eosinophils Percent Auto 2.4 % (0-4); Hematocrit 44.9 % (37.0-47.0); Hemoglobin 15.3 g/dl (12.0-16.0); Imm Gran Abs Auto 0.05 X10*3/uL (0.00-0.03); Imm Gran Pct Auto 0.7 % (0.0-0.4); Lymphocytes Absolute Auto 1.8 X10*3/uL (1.2-4.9); Lymphocytes Percent Auto 25.7 % (20-40); Mean Corpuscular HGB Conc 34.1 g/dl (31.0-35.0); Mean Corpuscular Hemoglobin 32.4 pg (27.0-33.0); Mean Corpuscular Volume 95.1 fL (80.0-98.0); Mean Platelet Volume 8.9 fL (9.4-12.3); Monocytes Absolute Auto 0.8 X10*3/uL (0.1-1.2); Monocytes Percent Auto 11.6 % (2-11); Neutrophils Absolute Auto 4.2 x10*3/uL (2.0-8.3); Neutrophils Percent Auto 58.9 % (45-73); Platelet Count 359 X10*3/uL (160-400); Red Blood Count 4.72 X10*6/uL (4.20-5.50); Red Cell Distribution Width 11.5 % (11.0-16.0); White Blood Count 7.2 X10*3/uL (4.8-10.8)
[2022-09-13 12:06] LABS: Erythrocyte Sedimentation Rate 21 MM/HR (0-20)
[2022-09-13 12:40] LABS: Alanine Aminotransferase 13 U/L (0-31); Albumin Level 4.3 g/dL (3.5-5.0); Alkaline Phosphatase 143 U/L (39-117); Anion Gap 16 (12-20); Aspartate Amino Transferase 26 U/L (5-31); Bilirubin Total 1.1 mg/dL (0.0-1.0); Blood Urea Nitrogen 11 mg/dL (9-16); C Reactive Protein 0.23 mg/dL (< or = 0.50); Calcium 10.3 mg/dL (8.4-10.2); Carbon Dioxide 23 mmol/L (22-29); Chloride 101 mmol/L (96-108); Cholesterol 243 mg/dL; Estimated Glomerular Filt Rate > 60; Glucose Random 108 mg/dL (60-115); HDL Cholesterol 80 mg/dL; LDL Cholesterol Calculated 141 mg/dl; Potassium 5.3 mmol/L (3.3-5.1); Sodium 135 mmol/L (135-145); Triglycerides 114 mg/dL
[2022-09-13 12:43] LABS: TSH reflex Free T4 2.95 uIU/mL (0.32-4.0); Vitamin D 25-OH Total 50.8 ng/mL (>30)
[2022-09-13 14:37] LABS: HBc Num1 0.19 S/CO (0.00-0.79); HBsAGNum1 0.31 S/CO (0.00-0.99); HIV AB/AG Nonreactive (Nonreactive); HIV Num 1 0.06 S/CO (0.00-0.99); Hepatitis A Antibody IgM 0.25 Index (0-0.79); Hepatitis B Core Antibody Nonreactive (Nonreactive); Hepatitis B Surface Antigen Negative (Negative); ~HepC Num1 0.16 S/CO (0.00-0.79); ~Hepatitis A Antibody IgM Nonreactive (Nonreactive); ~Hepatitis B Surface Antibody REACTIVE (Nonreactive); ~Hepatitis C Antibody Nonreactive (Nonreactive)
== END 2022-09-13 08:49 | disposition home or self-care (01) ==
LOC: HO.HHCL 08:48
PROVIDERS: Visit Provider Internal Medicine
DX: Z11.4 Encounter for screening for human immunodeficiency virus [HIV] (principal); M06.09 Rheumatoid arthritis without rheumatoid factor, multiple sites
CPT/HCPCS: 36415; 80053; 80061; 82306; 84443; 85025; 85652; 86140; 86704; 86706; 86709; 86803; 87340; 87389

== ENCOUNTER 2022-09-25 08:39 | Outpatient (REF) | payer MEDICAID, SELFPAY ==
[2022-09-25 11:59] LABS: Anion Gap 11 (12-20); Blood Urea Nitrogen 15 mg/dL (9-16); Calcium 9.6 mg/dL (8.4-10.2); Carbon Dioxide 30 mmol/L (22-29); Chloride 102 mmol/L (96-108); Estimated Glomerular Filt Rate > 60; Glucose Random 96 mg/dL (60-115); Sodium 138 mmol/L (135-145)
== END 2022-09-25 08:40 | disposition home or self-care (01) ==
LOC: HO.HHCL 08:39
PROVIDERS: Visit Provider Internal Medicine
DX: E87.5 Hyperkalemia (principal); E83.52 Hypercalcemia
CPT/HCPCS: 36415; 80048

== ENCOUNTER 2023-01-09 16:47 | Emergency (ER) | payer OTHER, SELFPAY ==
--- NOTE | ~2023-01-09 | CT_ITS ---
EXAMINATION: CT ABDOMEN AND PELVIS WITHOUT CONTRAST CLINICAL INFORMATION: Lower diffuse abdominal pain COMPARISON: CT abdomen pelvis 01/19/2014-report only TECHNIQUE: Multidetector volumetric imaging was performed from the superior aspect of the liver through the pubic symphysis. Sagittal and coronal reformatted images were obtained on the technologist's workstation. This CT examination was performed using dose optimization techniques as appropriate, variously including the following: *Automated exposure control *Adjustment of mA and/or kV according to patient size (this includes techniques or standardized protocols for targeted exams where dose is matched to indication/reason for exam; i.e. extremities or head) *Use of iterative reconstruction technique DLP: 313 mGy-cm FINDINGS: LUNG BASES: The visualized lung bases are unremarkable. LIVER, GALLBLADDER, AND BILIARY TREE: The liver is normal in size, shape, and attenuation. 2 small benign cysts are present in the liver the largest measuring 1.1 cm (3:17). No worrisome solid focal hepatic lesion or biliary ductal dilatation is present. The gallbladder is unremarkable with no evidence of radiopaque gallstones, gallbladder wall thickening, or obvious pericholecystic inflammatory changes. PANCREAS: Unremarkable. SPLEEN: Unremarkable. ADRENAL GLANDS: Unremarkable. KIDNEYS AND URETERS: The kidneys are normal in size, shape, and attenuation. No hydronephrosis, hydroureter, or calculi seen. No perinephric stranding. A benign right lower pole 1.8 cm Bosniak class I renal cyst is noted which requires no additional imaging or follow up. No solid renal masses are seen. BLADDER: Unremarkable. GASTROINTESTINAL TRACT: There are some mildly prominent proximal loops of small bowel with some mild thickening. The small and large bowel are otherwise unremarkable. The appendix is unremarkable. ABDOMINAL WALL: No significant hernia is appreciated. LYMPH NODES: No retroperitoneal lymphadenopathy. VASCULAR: Unremarkable. PELVIC VISCERA: The uterus and adnexa are unremarkable. OSSEOUS STRUCTURES: Degenerative changes are present in the spine most marked at L4-L5. CT/CT abdomen pelvis wo IV con IMPRESSION: 1. Mildly prominent proximal loops of small bowel with some mild thickening. This could be secondary to an enteritis. 2. Other incidental findings as described above including benign hepatic cysts, benign right renal cyst which requires no additional imaging or follow up and degenerative changes in the spine. Fleischner guidelines were followed.
--- NOTE | 2023-01-09 17:08 | ED.ABDPAIN ---
HPI - Abdominal Pain General Chief Complaint: Nausea/Vomiting/Diarrhea Stated Complaint: Diarrhea/?Low potassium Time Seen by Provider: 01/09/23 20:53 Source: patient Mode of arrival: ambulatory Limitations: no limitations History of Present Illness HPI narrative: 67 yo female with PMH of HTN, HLD who states she has not had a colonoscopy in 10+ years, denies travel, abx use in the past who comes in with c/o 2 weeks of diarrhea with 4 to 5 episodes a day and poor PO intake denies abdominal pain, blood stools, fevers, or known triggers. She states this has never happened before. No real improvement with claudia JEAN-BAPTISTE elicited complaint: other (diarrhea) Pertinent past history: none Onset (ago): week(s) (1) Severity: mild Radiation: none Exacerbating factors: eating Relieving factors: nothing Associated symptoms: other (10lbs weight loss, poor appetite) Related Data Previous Rx's Medication Instructions Recorded ondansetron 4 mg disintegrating 4 mg PO TID PRN nausea and 03/20/20 tablet vomiting 5 days #10 tabs ondansetron 4 mg disintegrating 4 mg PO TID PRN nausea and 03/20/20 tablet vomiting 5 days #10 tabs acetaminophen 650 mg 650 mg PO Q8H #90 tabs 07/06/20 tablet,extended release folic acid 1 mg tablet 1 mg PO DAILY #90 tabs 07/06/20 Allergies Allergy/AdvReac Type Severity Reaction Status Date / Time No Known Allergies Allergy Mild Unverified 11/20/19 17:16 Review of Systems Review of Systems Constitutional : pos Weight loss, No Fever, No Chills ENT/Mouth : No sore throat, No Rhinorrhea Eyes: No Swelling, No Redness Cardiovascular : No Chest Pain, No SOB, NoEdema Respiratory : No Cough, No Sputum, No Wheezing Gastrointestinal : no Nausea, no Vomiting, positive Diarrhea,no abdominal Pain, No Hematochezia, No Melena Genitourinary : No Dysuria, No Urinary Frequency, No Hematuria, No Urgency Musculoskeletal : No joint pain, No Myalgias, No Joint Swelling Skin : No Skin Lesions, No rash Neuro : No Weakness, No Numbness, No Dizziness, No Headache Psych : No Anxiety/Panic, No Depression Heme/Lymph: No Bruising, No Lymphadenopathy Endocrine : No Polyuria, No Polydipsia All other systems reviewed and are negative. PMFSH Past Medical History Attestation statement: The following information was validated with the patient. Source: old records reviewed Medical History High blood cholesterol HTN (hypertension) Social History Social History Alcohol intake: current Alcohol intake frequency: 0-2 drinks per day Alcohol type: beer Patient Tobacco Use Status: Current everyday Tobacco user Substance Use Type: Marijuana Advance Directives: No Advance Directives Information Provided: No Physical Exam ED Vital Signs: Vital Signs - 24 hr 01/09/23 17:09 01/09/23 23:38 Temperature 97.6 F 99.2 F Pulse Rate 56 70 Respiratory Rate 18 20 Blood Pressure 132/88 156/99 H Pulse Oximetry 99 99 Oxygen Delivery Method Room Air Room Air BMI result Body Mass Index 20.9 Appearance: Alert. Oriented X3. No acute distress. Eyes: Pupils equal, round and reactive to light. ENT: Pharynx normal. Neck: Normal inspection. Neck supple. CVS: Normal heart rate and rhythm. Pulses normal. Respiratory: No respiratory distress. Breath sounds normal. Abdomen: Soft and nontender. Skin: Skin warm and dry. Normal skin color. Normal skin turgor. Extremities: No lower extremity edema. No calf ttp Neuro: Oriented X 3. No motor deficit. No sensory deficit. Course Course Course Narrative: This is an RME: Additional HPI, ROS, PE not included below will be deferred to primary provider. Patient is a 67-year-old female who presents emergency department with reports of diarrhea, intermittent for the past 2 months, occuring 4-5 times daily; watery, worsens with eating, associated nausea, denies hematochezia or melena. Has not yet been seen for this. Denies ABD pain Plan: labs, U/A Reevaluation(s) Reevaluation #1: chronic bump in K, no abdominal pain with elevated lipase does drink ETOH Reevaluation #2: unable to give stool sample in ED Medical Decision Making Medical Decision Making MDM Narrative: 67 yo female with PMH of HTN, HLD overdue for colonoscopy here with c/o diarrhea x 2 weeks but no fevers, blood, pain, no abx or known exposures - no hx of this in the past. At this time will obtain stool studies, hydrate, basic labs and CT scan for colitis/mass. Differential Diagnosis Differential Diagnoses: The differential diagnosis associated with the presentation includes colitis, mass, diverticulitis Admission/Observation Consideration of admission/observation: Escalation of care including admission/observation considered not toxic, labs at baseline, mild enteritis no diarrhea here able to produce one stool sample, she is tolerating PO will DC home and wait for stool results Lab Data MDM Lab Attestation statement: I reviewed the patient's lab results. 01/09/23 17:49 01/09/23 17:49 Labs: Lab Results 01/09/23 01/10/23 Range/Units 17:49 01:11 WBC 8.4 (4.8-10.8) X10*3/uL RBC 4.85 (4.20-5.50) X10*6/uL Hgb 15.9 (12.0-16.0) g/dl Hct 47.3 H (37.0-47.0) % MCV 97.5 (80.0-98.0) fL MCH 32.8 (27.0-33.0) pg MCHC 33.6 (31.0-35.0) g/dl RDW 11.8 (11.0-16.0) % Plt Count 384 (160-400) X10*3/uL MPV 8.7 L (9.4-12.3) fL Immature Gran % (Auto) 0.4 (0.0-0.4) % Neut % (Auto) 59.0 (45-73) % Lymph % (Auto) 26.4 (20-40) % Franklin % (Auto) 11.6 H (2-11) % Eos % (Auto) 1.9 (0-4) % Baso % (Auto) 0.7 (0-2) % Lymph # (Auto) 2.2 (1.2-4.9) X10*3/uL Franklin # (Auto) 1.0 (0.1-1.2) X10*3/uL Eos # (Auto) 0.2 (0.0-0.4) X10*3/uL Baso # (Auto) 0.1 (0.0-0.2) X10*3/uL Abs Immat Gran (auto) 0.03 (0.00-0.03) X10*3/uL Absolute Neuts (auto) 5.0 (2.0-8.3) x10*3/uL Absolute Nucleated RBC 0.000 (0.0-0.012) X10*3/uL Nucleated RBC % (auto) 0.0 (0.0-0.2) /100WBC Sodium 136 (135-145) mmol/L Potassium 5.3 H (3.3-5.1) mmol/L Chloride 103 (96-108) mmol/L Carbon Dioxide 24 (22-29) mmol/L Anion Gap 14 (12-20) BUN 26 H (9-16) mg/dL Creatinine 1.29 (0.5-1.4) mg/dL Estim Creat Clear Calc 36.0 Estimated GFR 41 Random Glucose 105 (60-115) mg/dL Calcium 10.3 H D (8.4-10.2) mg/dL Magnesium 1.7 (1.6-2.6) mg/dL Total Bilirubin 0.7 (0.0-1.0) mg/dL AST 25 (5-31) U/L ALT 14 (0-31) U/L Alkaline Phosphatase 130 H (39-117) U/L Total Protein 8.2 H (6.5-8.0) g/dL Albumin 4.6 (3.5-5.0) g/dL Lipase 162 H (8-78) U/L Urine Color Yellow Urine Appearance Clear Urine pH 5.5 (5.0-9.0) Ur Specific Dalton 1.015 (1.005-1.025) Urine Protein Negative (Neg-Trace) mg/dL Urine Glucose (UA) Negative (Negative) mg/dL Urine Ketones Negative (Negative) mg/dL Urine Blood Small (1+) H (Negative) Urine Nitrite Negative (Negative) Ur Leukocyte Esterase Trace H (Negative) Urine RBC 6-10 H (0-2) /HPF Urine WBC 0-5 (0-5) /HPF Ur Squamous Epith Cells 3-5 (0-2) /HPF Urine Bacteria None Seen (None Seen) Hyaline Casts 0-2 (0-2) /LPF C. difficile Tox B Gene NEGATIVE (Negative) COVID-19 (MIGNON) Negative (Negative) COVID-19 Clin Com See Note Influenza Type A (CÉSAR) Negative (Negative) Influenza Type B (CÉSAR) Negative (Negative) Influenza A & B Note See Note Independent Interpretation I performed an independent interpretation of an: CT Scan (enteritis) Radiology Impression Discussion of test interpretation with radiology: I have reviewed the radiologist's reading. External Record Review External record reviewed: Prior outpatient labs Medications Administered Discontinued Medications Generic Name Dose Route Start Last Admin Trade Name Freq PRN Reason Stop Dose Admin Sodium Chloride 1,000 mls @ 999 mls/hr 01/09/23 21:15 01/09/23 22:51 Ns IV 01/09/23 22:15 Not Given .Q1H1M [facility] Discharge Plan Discharge Clinical Impression: Enteritis Patient Disposition: Home, Self-Care Instructions: Enteritis (ED) Additional Instructions: return for worsening pain, fevers, vomiting, bloody stools, inability to eat or drink. we will call you if stool sample is positive. eat a bland diet and advance as tolerated. you can take immodium if you do not have fevers or bloody stools. Regrese si el dolor empeora, fiebre, v?mitos, heces con daniel, incapacidad para comer o beber. Lo llamaremos si los estudios de heces son positivos. comer leonel dieta blanda y avanzar seg?n lo tolere. Puede luz maria Immodium si no tiene fiebre ni heces con daniel. Le llamaremos si la muestra de heces es positiva. Prescriptions: No Action acetaminophen 650 mg tablet extended release 650 mg PO Q8H Qty: 90 5RF folic acid 1 mg tablet 1 mg PO DAILY Qty: 90 1RF ondansetron 4 mg tablet,disintegrating 4 mg PO TID PRN (Reason: nausea and vomiting) 5 Days Qty: 10 0RF ondansetron 4 mg tablet,disintegrating 4 mg PO TID PRN (Reason: nausea and vomiting) 5 Days Qty: 10 0RF Referrals: Cristy Monet MD [Primary Care Provider] - 1 day (consulte a frost m?dico para que le d? leonel muestra de heces.) Interventions: ED Discharge Assessment Last Done: 01/10/23 01:18 Discharge Date/Time: 01/10/23 01:19 Print Language: Maori
[2023-01-09 17:09] VITALS: BP 132/88; PULSE 56; RESP 18; TEMP 36.4; O2SAT 99; BMI 20.9
[2023-01-09 17:54] LABS: MANUAL DIFF FLAG NO
[2023-01-09 17:57] LABS: Appearance Urine Clear; Color Urine Yellow; Glucose Urine UA Negative (Negative); Leukocyte Esterase Urine Trace (Negative); Nitrite Urine Negative (Negative); PH 5.5 (5.0-9.0); Specific Gravity - Urine 1.015 (1.005-1.025); UMIC TRIGGER UACC YES; Urine Blood Small (1+) (Negative); Urine Ketones Negative (Negative); Urine Protein Negative (Neg-Trace)
[2023-01-09 17:59] LABS: Bacteria Urine None Seen (None Seen); Hyaline Casts Urine 0-2 /LPF (0-2); WBC Urine 0-5 /HPF (0-5)
[2023-01-09 18:03] LABS: Basophils Absolute Auto 0.1 X10*3/uL (0.0-0.2); Basophils Percent Auto 0.7 % (0-2); Eosinophils Absolute Auto 0.2 X10*3/uL (0.0-0.4); Eosinophils Percent Auto 1.9 % (0-4); Hematocrit 47.3 % (37.0-47.0); Hemoglobin 15.9 g/dl (12.0-16.0); Imm Gran Abs Auto 0.03 X10*3/uL (0.00-0.03); Imm Gran Pct Auto 0.4 % (0.0-0.4); Lymphocytes Absolute Auto 2.2 X10*3/uL (1.2-4.9); Lymphocytes Percent Auto 26.4 % (20-40); Mean Corpuscular HGB Conc 33.6 g/dl (31.0-35.0); Mean Corpuscular Hemoglobin 32.8 pg (27.0-33.0); Mean Corpuscular Volume 97.5 fL (80.0-98.0); Mean Platelet Volume 8.7 fL (9.4-12.3); Monocytes Percent Auto 11.6 % (2-11); Platelet Count 384 X10*3/uL (160-400); Red Blood Count 4.85 X10*6/uL (4.20-5.50); Red Cell Distribution Width 11.8 % (11.0-16.0); White Blood Count 8.4 X10*3/uL (4.8-10.8)
[2023-01-09 18:11] LABS: Alanine Aminotransferase 14 U/L (0-31); Albumin Level 4.6 g/dL (3.5-5.0); Alkaline Phosphatase 130 U/L (39-117); Anion Gap 14 (12-20); Aspartate Amino Transferase 25 U/L (5-31); Bilirubin Total 0.7 mg/dL (0.0-1.0); Blood Urea Nitrogen 26 mg/dL (9-16); Calcium 10.3 mg/dL (8.4-10.2); Carbon Dioxide 24 mmol/L (22-29); Chloride 103 mmol/L (96-108); Estimated Glomerular Filt Rate 41; Glucose Random 105 mg/dL (60-115); Lipase 162 U/L (8-78); Magnesium 1.7 mg/dL (1.6-2.6); Potassium 5.3 mmol/L (3.3-5.1); Sodium 136 mmol/L (135-145); Total Protein 8.2 g/dL (6.5-8.0)
[2023-01-09 18:13] LABS: COVID-19 Test Negative (Negative); IDNOW Serial# 9DB6401D; IDNOW Serial# BCCEAD1C; Influenza A Negative (Negative); Influenza B2 Negative (Negative)
--- NOTE | 2023-01-09 21:56 | PC.NURSE ---
Attempted IV placement twice without success, charge nurse informed and also attempted without success. Provider made aware.
[2023-01-09 23:38] VITALS: BP 156/99; PULSE 70; RESP 20; TEMP 37.3; O2SAT 99
--- NOTE | 2023-01-10 01:17 | PC.NURSE ---
Assumed care of PT at 2337. Stool sample rec'd. Discharge summary and instructions given. PT verbalized understanding
[2023-01-10 02:17] LABS: CDiff Gene PCR NEGATIVE (Negative)
[2023-01-10 08:38] LABS: Adenovirus F 40/41 Not Detected (Not Detect.); Astrovirus Not Detected (Not Detect.); Campylobacter Not Detected (Not Detect.); Cryptosporidium Not Detected (Not Detect.); Cyclospora cayetanensis Not Detected (Not Detect.); E. coli EAEC Not Detected (Not Detect.); E. coli EPEC Not Detected (Not Detect.); E. coli ETEC Not Detected (Not Detect.); E. coli STEC Not Detected (Not Detect.); Entamoeba histolytica Not Detected (Not Detect.); Giardia lamblia Not Detected (Not Detect.); Norovirus GI/GII Not Detected (Not Detect.); Plesiomonas shigelloides Not Detected (Not Detect.); Rotavirus A Not Detected (Not Detect.); Salmonella Not Detected (Not Detect.); Sapovirus Not Detected (Not Detect.); Shigella sp./EIEC Not Detected (Not Detect.); Vibrio Not Detected (Not Detect.); Vibrio Cholerae Not Detected (Not Detect.); Yersinia enterocolitica Not Detected (Not Detect.)
== END 2023-01-10 01:19 | disposition home or self-care (01) ==
PROVIDERS: Nurse Practitioner Family; Emergency Provider Emergency Medicine; PCP Internal Medicine
DX: K52.9 Noninfective gastroenteritis and colitis, unspecified (principal); I10 Essential (primary) hypertension; E78.5 Hyperlipidemia, unspecified; F17.200 Nicotine dependence, unspecified, uncomplicated; F12.90 Cannabis use, unspecified, uncomplicated; Z11.52 Encounter for screening for COVID-19; R10.30 Lower abdominal pain, unspecified
CPT/HCPCS: 74176; 80053; 81001; 83690; 83735; 85025; 87493; 87502; 87507; 87635; 99283; 99284

== ENCOUNTER → 2023-05-09 13:49 | Outpatient (BNVA) | payer OTHER, SELFPAY | PROVIDERS: PCP Internal Medicine; Visit Provider Physician Assistant ==

== ENCOUNTER 2023-06-13 12:38 | Outpatient (AMB) | payer OTHER, SELFPAY ==
--- NOTE | 2023-06-13 12:39 | A.OFFVIS_ITS ---
Intake Vital Signs 06/13/23 12:41 Height 5 ft 3 in Weight 119 lb 7.849 oz BMI 21.2 BP 144/90 H Blood Pressure Location Rt brachial Position Sitting Pulse 72 Pulse Source Palpation Intake Visit Reasons: RA Intake Note: New patient, externally referred by Dr. Monet, presents today for RA. Formerly saw our rheum dept. Community Support Specialist Required: Yes Community Support Specialist Language: Rn New Graduate Name: [id number] Jake Information Interpreted: clinical only Accompanied by: Self / Same As Patient Allergies No Known Allergies Allergy (Mild, Unverified 06/13/23 12:43) HPI HPI Comments History of Present Illness Details Roel Montes De Oca 67 yoF here on referral by PCP, presents for evaluation of hand pain and swelling. She has had this for many years and only takes tylenol for the pain. She was seen before by a Rhumatologist and denies being given immunosuppresivel medications for her hands. She denies pain and swelling to other joints. Smokes about 10 cigarettes per day. [facility]LY [facility] Medical History High blood cholesterol HTN (hypertension) Social History (Updated 06/13/23 @ 12:43 by ABHISHEK Kenney) Household Members Other:: lives alone Alcohol intake: current Alcohol intake frequency: 0-2 drinks per day Alcohol type: beer Patient Tobacco Use Status: Current everyday Tobacco user Cigarette Packs Per Day: 1 Substance Use Type: Marijuana Female Reproductive History Menstrual Total pregnancies: 3 Review of Systems Const All systems reviewed & are unremarkable except as noted in HPI and below Physical Exam Vital Signs: Last Vital Signs Pulse 72 06/13/23 12:41 BP 144/90 H 06/13/23 12:41 BMI result Body Mass Index 21.2 APPEARANCE: Patient in no acute distress EYES no redness, normal EARS:? External ear normal. NOSE/SINUS:? Airflow through both nares, no nasal discharge, no bleeding THROAT:? Oral mucosa moist, no ulcerations NECK:? No thyromegaly or masses, no adenopathy, trachea midline. HEART:? Regular rhythm, S1-S2 heard, no murmurs, rubs or gallops. LUNG:? Clear to percussion and auscultation EXTREMITIES:? No edema, no calf tenderness, normal peripheral pulses. NEURO:? Oriented and alert x3.? No focal weakness.? Reflexes symmetric.? Gait normal. SKIN:? There are no skin lesions evident. No objective signs of Raynaud's phenomenon. JOINT EXAM: Cervical Spine:.? Full range of motion without pain; no tenderness. Thoracic Spine:.? No scoliosis.? No tenderness on palpation. Lumbar Spine:.? Alignment normal.? Full range of motion without pain, no tenderness. Chest Wall:.? No tenderness, swelling, increased warmth or erythema. Hands:.?Decreased range of motion with marked tenderness, swelling, increased warmth or erythema. More tenderness at 2d and 3rd MCPs bilaterally. There is Ulnar deviation. Unable to make a full fist and has decreased reception strength. Wrists:.? Normal pain-free range of motion without tenderness, swelling, increased warmth or erythema. Elbows:. Normal pain-free range of motion without tenderness, swelling, increased warmth or erythema. Shoulders:.?? Decrease range of motion to left at 110 degrees over head raise. Has discomfort but No tenderness, weakness, swelling, increased warmth or erythema. Hip bursa:.? No tenderness. Knees:.?? Normal pain-free range of motion without tenderness, swelling, increased warmth or erythema.? There is no effusion or crepitation Ankles:.? Normal pain-free range of motion without tenderness, swelling, increased warmth or erythema. Feet:.? Normal pain-free range of motion without tenderness, swelling, increased warmth or erythema. Tender points:? No tenderness to digital palpation at the occiput, trapezius, second rib, lateral epicondyle, knees, greater trochanter and gluteal area bilat erally. ? Assessment & Plan Assessment & Plan (1) Joint pain in both hands: Code(s): M25.541 - Pain in joints of right hand; M25.542 - Pain in joints of left hand (2) Bilateral hand swelling: Code(s): M79.89 - Other specified soft tissue disorders (3) Inflammatory arthritis: Code(s): M19.90 - Unspecified osteoarthritis, unspecified site (4) Smoker unmotivated to quit: Code(s): F17.200 - Nicotine dependence, unspecified, uncomplicated (5) Encounter before starting medication: Code(s): Z76.89 - Persons encountering health services in other specified circumstances Plan Ms. Sevilla 67 yoF presents with tender, swollen erythematous hands with ulnar deviation. Clearly there is some inflammatory arthritis present. I have reviewed her labs and xrays from a 2018 Rheum work up, and there were no significant findings at that time, except for mildly elevated ESR/CRP and hand OA. I will order an updated Rheum panel, hand xray and a baseline chest Xray. She will not be able to do the blood draw until tomorrow. She will call the office so I can send the prednisone after the blood draw. I will also marko to start her on MTX at the next visit and labs results are reviewed. We will discuss MTX at that time I spent 40 minutes reviewing history, evaluating patient and documenting F/u 4 weeks Orders: Orders Erythrocyte Sedimentation Rate Today M25.541 - Pain in joints of right hand, M25.542 - Pain in joints of left hand, M79.89 - Other specified soft tissue disorders PATRICK Reflex Titer and Pattern Today M25.541 - Pain in joints of right hand, M25.542 - Pain in joints of left hand, M79.89 - Other specified soft tissue disorders Anti DNA DS Antibody Today M25.541 - Pain in joints of right hand, M25.542 - Pa in in joints of left hand, M79.89 - Other specified soft tissue disorders Anti Extractable Nuclear Ag Today M25.541 - Pain in joints of right hand, M25.542 - Pain in joints of left hand, M79.89 - Other specified soft tissue disorders Complement C3 Today M25.541 - Pain in joints of right hand, M25.542 - Pain in joints of left hand, M79.89 - Other specified soft tissue disorders Complement C4 Today M25.541 - Pain in joints of right hand, M25.542 - Pain in joints of left hand, M79.89 - Other specified soft tissue disorders Complete Blood Count Auto Diff Today M25.541 - Pain in joints of right hand, M25.542 - Pain in joints of left hand, M79.89 - Other specified soft tissue disorders Comprehensive Met. Panel Today M25.541 - Pain in joints of right hand, M25.542 - Pain in joints of left hand, M79.89 - Other specified soft tissue disorders C Reactive Protein Today M25.541 - Pain in joints of right hand, M25.542 - Pain in joints of left hand, M79.89 - Other specified soft tissue disorders Creatine Kinase Total Today M25.541 - Pain in joints of right hand, M25.542 - Pain in joints of left hand, M79.89 - Other specified soft tissue disorders Hepatitis A,B,C Profile Today M25.541 - Pain in joints of right hand, M25.542 - Pain in joints of left hand, M79.89 - Other specified soft tissue disorders Immunoglobulins,IgG IgA IgM Today M25.541 - Pain in joints of right hand, M25.542 - Pain in joints of left hand, M79.89 - Other specified soft tissue disorders Protein Electrophoresis, Serum Today M25.541 - Pain in joints of right hand, M25.542 - Pain in joints of left hand, M79.89 - Other specified soft tissue disorders Scleroderma 70 Antibody Today M25.541 - Pain in joints of right hand, M25.542 - Pain in joints of left hand, M79.89 - Other specified soft tissue disorders Sjogren's Antibodies Today M25.541 - Pain in joints of right hand, M25.542 - Pain in joints of left hand, M79.89 - Other specified soft tissue disorders T Spot TB Today M25.541 - Pain in joints of right hand, M25.542 - Pain in joints of left hand, M79.89 - Other specified soft tissue disorders Vitamin D 25-OH (D2 and D3) Today M25.541 - Pain in joints of right hand, M25.542 - Pain in joints of left hand, M79.89 - Other specified soft tissue disorders Cyclic Citrullinated Peptide Today M25.541 - Pain in joints of right hand, M25.542 - Pain in joints of left hand, M79.89 - Other specified soft tissue dis orders Rheumatoid Factor Today M25.541 - Pain in joints of right hand, M25.542 - Pain in joints of left hand, M79.89 - Other specified soft tissue disorders XR chest 2V Today F17.200 - Nicotine dependence, unspecified, uncomplicated, M19.90 - Unspecified osteoarthritis, unspecified site, Z76.89 - Persons encountering health services in other specified circumstances Anti-Centromere B Antibodies Today M25.541 - Pain in joints of right hand, M25.542 - Pain in joints of left hand, M79.89 - Other specified soft tissue disorders Immunofixation Pnl, Serum Today M25.541 - Pain in joints of right hand, M25.542 - Pain in joints of left hand, M79.89 - Other specified soft tissue disorders Uric Acid Today M25.541 - Pain in joints of right hand, M25.542 - Pain in joints of left hand, M79.89 - Other specified soft tissue disorders XR hand LT min 3V Today M19.90 - Unspecified osteoarthritis, unspecified site, M25.541 - Pain in joints of right hand, M25.542 - Pain in joints of left hand, M79.89 - Other specified soft tissue disorders XR hand RT min 3V Today M19.90 - Unspecified osteoarthritis, unspecified site, M25.541 - Pain in joints of right hand, M25.542 - Pain in joints of left hand, M79.89 - Other specified soft tissue disorders Coding Level of Care Code New Pt Level 4 (30488) Diagnoses Joint pain in both hands M25.541; M25.542 Bilateral hand swelling M79.89 Inflammatory arthritis M19.90 Smoker unmotivated to quit F17.200 Encounter before starting medication Z76.89
[2023-06-13 12:41] VITALS: BP 144/90; PULSE 72; BMI 21.2
== END 2023-06-13 13:22 | disposition home or self-care (01) ==
PROVIDERS: PCP Internal Medicine; Visit Provider Nurse Practitioner Family
DX: M25.541 Pain in joints of right hand (principal); M25.542 Pain in joints of left hand; M79.89 Other specified soft tissue disorders; M19.90 Unspecified osteoarthritis, unspecified site; F17.200 Nicotine dependence, unspecified, uncomplicated; Z76.89 Persons encountering health services in other specified circumstances
CPT/HCPCS: 99204

== ENCOUNTER → 2023-06-13 12:38 | Outpatient (BNVA) | payer OTHER, SELFPAY | PROVIDERS: PCP Internal Medicine; Visit Provider Nurse Practitioner Family | DX: M25.541 Pain in joints of right hand (principal); M25.542 Pain in joints of left hand; M79.89 Other specified soft tissue disorders; M19.90 Unspecified osteoarthritis, unspecified site; F17.210 Nicotine dependence, cigarettes, uncomplicated; Z76.89 Persons encountering health services in other specified circumstances | CPT/HCPCS: 99202 ==

== ENCOUNTER 2023-07-18 09:58 | Outpatient (REF) | payer OTHER, SELFPAY ==
[2023-07-18 11:29] LABS: MANUAL DIFF FLAG NO
[2023-07-18 11:42] LABS: Basophils Absolute Auto 0.1 X10*3/uL (0.0-0.2); Eosinophils Absolute Auto 0.1 X10*3/uL (0.0-0.4); Eosinophils Percent Auto 2.7 % (0-4); Hematocrit 43.8 % (37.0-47.0); Hemoglobin 15.5 g/dl (12.0-16.0); Imm Gran Abs Auto 0.01 X10*3/uL (0.00-0.03); Imm Gran Pct Auto 0.2 % (0.0-0.4); Lymphocytes Absolute Auto 1.5 X10*3/uL (1.2-4.9); Lymphocytes Percent Auto 28.6 % (20-40); Mean Corpuscular HGB Conc 35.4 g/dl (31.0-35.0); Mean Corpuscular Hemoglobin 33.3 pg (27.0-33.0); Mean Corpuscular Volume 94.2 fL (80.0-98.0); Mean Platelet Volume 9.1 fL (9.4-12.3); Monocytes Absolute Auto 0.8 X10*3/uL (0.1-1.2); Monocytes Percent Auto 14.9 % (2-11); Neutrophils Absolute Auto 2.8 x10*3/uL (2.0-8.3); Neutrophils Percent Auto 52.6 % (45-73); Platelet Count 351 X10*3/uL (160-400); Red Blood Count 4.65 X10*6/uL (4.20-5.50); Red Cell Distribution Width 11.9 % (11.0-16.0); White Blood Count 5.2 X10*3/uL (4.8-10.8)
[2023-07-18 12:15] LABS: HBc Num1 0.26 S/CO (0.00-0.79); HBsAGNum1 0.24 S/CO (0.00-0.99); Hepatitis A Antibody IgM 0.17 Index (0-0.79); Hepatitis B Core Antibody Nonreactive (Nonreactive); ~HepC Num1 0.16 S/CO (0.00-0.79); ~Hepatitis A Antibody IgM Nonreactive (Nonreactive); ~Hepatitis B Surface Antibody REACTIVE (Nonreactive); ~Hepatitis C Antibody Nonreactive (Nonreactive)
[2023-07-18 12:16] LABS: Hepatitis B Surface Antigen Negative (Negative)
[2023-07-18 12:17] LABS: Rheumatoid Factor < 13.0 IU/mL (<15.0)
[2023-07-18 12:19] LABS: Alanine Aminotransferase 12 U/L (0-31); Albumin Level 4.4 g/dL (3.5-5.0); Alkaline Phosphatase 141 U/L (39-117); Anion Gap 16 (12-20); Aspartate Amino Transferase 25 U/L (5-31); Blood Urea Nitrogen 18 mg/dL (9-16); Calcium 9.8 mg/dL (8.4-10.2); Carbon Dioxide 25 mmol/L (22-29); Chloride 94 mmol/L (96-108); Estimated Glomerular Filt Rate 46; Glucose Random 88 mg/dL (60-115); Potassium 4.3 mmol/L (3.3-5.1); Sodium 131 mmol/L (135-145); Total Protein 7.8 g/dL (6.5-8.0); Uric Acid 5.3 mg/dL (2.4-5.7)
[2023-07-18 12:20] LABS: Erythrocyte Sedimentation Rate 10 MM/HR (0-20)
[2023-07-19 09:28] LABS: Prot Elec - Albumin 4.3 g/dL (3.8-4.8); Prot Elec - Alpha1 0.3 g/dL (0.2-0.3); Prot Elec - Alpha2 0.8 g/dL (0.5-0.9); Prot Elec - Beta 1 0.4 g/dL (0.4-0.6); Prot Elec - Beta 2 0.5 g/dL (0.2-0.5); Prot Elec - Total Protein 7.2 g/dL (6.1-8.1)
[2023-07-19 13:54] LABS: Anti-Centromere B Antibodies <1.0 NEG AI (<1.0 NEG)
[2023-07-19 15:43] LABS: Cyclic Citrullinated Peptide <16 UNITS
[2023-07-20 06:59] LABS: Complement C3 100 mg/dL (83-193)
[2023-07-20 13:53] LABS: Anti DNA DS Antibody <1 IU/mL; Antibody to SS-A Antigen <1.0 NEG AI (<1.0 NEG); Antibody to SS-B Antigen <1.0 NEG AI (<1.0 NEG); Scleroderma 70 Antibody <1.0 NEG AI (<1.0 NEG)
[2023-07-20 22:29] LABS: IgA 530 mg/dL (70-320); IgG 1176 mg/dL (600-1540); IgM 34 mg/dL (50-300)
[2023-07-21 07:39] LABS: TS Negative Control Passed; TS Panel A 35; TS Panel B 31; TS Positive Control Passed; TSpotTB Positive (Negative)
[2023-07-22 13:48] LABS: Vitamin D 25-OH, D2 <4 ng/mL; Vitamin D 25-OH, D3 32 ng/mL; Vitamin D 25-OH, Total 32 ng/mL (30-100)
[2023-07-24 11:44] LABS: Anti Nuclear Antibody Pattern Nuclear, Speckled; Anti Nuclear Antibody Screen POSITIVE (NEGATIVE)
== END 2023-07-18 09:59 | disposition home or self-care (01) ==
LOC: HO.HHCL 09:58
PROVIDERS: Visit Provider Nurse Practitioner Family
DX: Z11.1 Encounter for screening for respiratory tuberculosis (principal); M25.541 Pain in joints of right hand; M25.542 Pain in joints of left hand; M79.89 Other specified soft tissue disorders
CPT/HCPCS: 36415; 80053; 82306; 82550; 82784; 84165; 84550; 85025; 85652; 86038; 86039; 86140; 86160; 86200; 86225; 86235; 86334; 86431; 86481; 86704; 86706; 86709; 86803; 87340

== ENCOUNTER 2023-07-24 10:39 | Outpatient (REF) | payer OTHER, SELFPAY ==
--- NOTE | ~2023-07-24 | XR_ITS ---
EXAMINATION: XR HAND, RIGHT XR HAND, LEFT CLINICAL INDICATION: Unspecified osteoarthritis, unspecified site. COMPARISON: MRI bilateral hands 05/23/2018. Hand radiographs of 01/30/2018. TECHNIQUE: 3 views of each hand. FINDINGS: RIGHT HAND: The bones are diffusely demineralized. Redemonstration of volar subluxation of the proximal phalanx of the second digit at the level of the MCP joint with degenerative changes which are better characterized on MRI. Degenerative changes in multiple small joints with joint space narrowing and tiny osteophytes. There appears to be subluxation at the level of the third MCP joint with associated degenerative changes as well. LEFT HAND: There is subluxation at the left third MCP joint. Bones are diffusely demineralized. Degenerative changes in multiple small joints. XR/XR hand LT min 3V IMPRESSION: 1. Redemonstration of anterior subluxation of the right second MCP joint. Interval subluxation of the right third MCP joint. 2. Subluxation of the left third MCP joint. 3. Mild degenerative changes. 4. Bones are diffusely demineralized.
--- NOTE | ~2023-07-24 | XR_ITS ---
EXAMINATION: XR CHEST CLINICAL INFORMATION: Unspecified osteoarthritis, patient being evaluated for rheumatoid arthritis and to start methotrexate. COMPARISON: 07/01/2018 TECHNIQUE: 2 views of the chest were obtained. FINDINGS: Heart size is normal. Degenerative changes in the thoracic spine. No pleural effusion. No new focal consolidation to suggest pneumonia. XR/XR chest 2V IMPRESSION: No evidence of pneumonia.
--- NOTE | ~2023-07-24 | MM_ITS ---
EXAMINATION: MM SCREENING DIGITAL BREAST TOMOSYNTHESIS, BILATERAL CLINICAL INFORMATION: Screening. Asymptomatic. The patient has a history of prior left excisional biopsy. COMPARISON: Mammography: This study is compared with prior exams dating back to 2018. TECHNIQUE: Digital breast tomosynthesis is performed in both the craniocaudal and mediolateral oblique views along with computer-aided detection (CAD). Synthesized 2D images are generated from the tomosynthesis. FINDINGS: There are scattered areas of fibroglandular density (ACR BI-RADS breast composition Category b). In the upper outer quadrant of the deep third of the left breast, there is a focal asymmetry associated with grouped calcifications. Additional mammographic and targeted sonographic imaging are advised. Separate magnification views of the calcifications are also advised. There is a tissue marker in the right breast associated with coarse benign calcifications. In the left breast, there are no significant masses, abnormal calcifications, or other abnormalities. Coarse benign calcifications are also present in both breasts. MM/MM tomosynthesis screening BI IMPRESSION: Focal asymmetry of the left breast warrants additional mammographic and targeted sonographic imaging. The associated calcifications warrant separate magnification imaging. No mammographic signs of malignancy left breast. ASSESSMENT: BI-RADS BI-RADS 0 - Incomplete: Needs additional Imaging. RECOMMENDATION: 1. Additional views of the left breast 2. Targeted ultrasound 3. Radiology department staff will contact the patient for additional imaging. Additional Imaging required This examination should not preclude the clinical evaluation of a suspicious palpable abnormality. This patient's information was entered into a reminder system with a target due date for their next mammogram.
--- NOTE | ~2023-07-24 | XR_ITS ---
EXAMINATION: XR HAND, RIGHT XR HAND, LEFT CLINICAL INDICATION: Unspecified osteoarthritis, unspecified site. COMPARISON: MRI bilateral hands 05/23/2018. Hand radiographs of 01/30/2018. TECHNIQUE: 3 views of each hand. FINDINGS: RIGHT HAND: The bones are diffusely demineralized. Redemonstration of volar subluxation of the proximal phalanx of the second digit at the level of the MCP joint with degenerative changes which are better characterized on MRI. Degenerative changes in multiple small joints with joint space narrowing and tiny osteophytes. There appears to be subluxation at the level of the third MCP joint with associated degenerative changes as well. LEFT HAND: There is subluxation at the left third MCP joint. Bones are diffusely demineralized. Degenerative changes in multiple small joints. XR/XR hand RT min 3V IMPRESSION: 1. Redemonstration of anterior subluxation of the right second MCP joint. Interval subluxation of the right third MCP joint. 2. Subluxation of the left third MCP joint. 3. Mild degenerative changes. 4. Bones are diffusely demineralized.
== END 2023-07-24 10:40 | disposition home or self-care (01) ==
LOC: HO.MAMMO 10:39
PROVIDERS: Absent Provider Nurse Practitioner Family; PCP Internal Medicine; Visit Provider Internal Medicine
DX: M19.90 Unspecified osteoarthritis, unspecified site (principal); M79.89 Other specified soft tissue disorders; M25.541 Pain in joints of right hand; M25.542 Pain in joints of left hand; F17.200 Nicotine dependence, unspecified, uncomplicated; Z12.31 Encounter for screening mammogram for malignant neoplasm of breast; Z76.89 Persons encountering health services in other specified circumstances
CPT/HCPCS: 71046; 73130; 77063; 77067

== ENCOUNTER → 2023-07-24 11:00 | Outpatient (BNV) | payer OTHER, SELFPAY | PROVIDERS: Absent Provider Nurse Practitioner Family; PCP Internal Medicine; Visit Provider Radiology Diagnostic Radiology | DX: Z12.31 Encounter for screening mammogram for malignant neoplasm of breast (principal) | CPT/HCPCS: 77063; 77067 ==

== ENCOUNTER 2023-08-02 11:07 | Outpatient (AMB) | payer OTHER, SELFPAY ==
--- NOTE | 2023-08-02 11:10 | MHC.OFFVIS ---
Vital Signs 08/02/23 11:16 Height 5 ft 3 in Weight 118 lb 6.212 oz BMI 21.0 BP 100/80 Blood Pressure Location Rt brachial Position Sitting Pulse 80 Pulse Source Auscultation Intake Visit Reasons: InFl Arth/Hand swelling and Pain/cm Intake Note: Established patient, last seen 06/13/23, presents today to discuss MTX tx. Reports on going hand swelling. Security Shift Manager Required: Yes Security Shift Manager Language: Refuse Collector Name: Ashley [id number] Allergies No Known Allergies Allergy (Mild, Verified 08/13/23 14:30) HPI Comments Details: Roel Montes De Oca yoF returns for follow-up of evaluation of hand pain and swelling to review diagnostics and discuss treatment options. She has no new development or concerns since last visit. Initial visit 06/13/2023: Roel Montes De Oca yoF here on referral by PCP, presents for evaluation of hand pain and swelling. She has had this for many years and only takes tylenol for the pain. She was seen before by a Rhumatologist and denies being given immunosuppresivel medications for her hands. She can not remember if she had followed up are not. She denies pain and swelling to other joints. Smokes about 10 cigarettes per day. --denies treatment for the hand pain and swelling --denies uveitis, rash, dry eyes dry mouth, mouth sores, fevers, chronic infections, GI/ symptoms [facility] Medical History Seronegative rheumatoid arthritis Positive TB test Encounter before starting medication Smoker unmotivated to quit Inflammatory arthritis Bilateral hand swelling Joint pain in both hands High blood cholesterol HTN (hypertension) Social History Household Members Other:: lives alone Alcohol intake: current Alcohol intake frequency: 0-2 drinks per day Alcohol type: beer Patient Tobacco Use Status: Current everyday Tobacco user Cigarette Packs Per Day: 1 Substance Use Type: Marijuana Review of Systems Const All systems reviewed & are unremarkable except as noted in HPI and below Physical Exam Vital Signs: Last Vital Signs Pulse 80 08/02/23 11:16 BP 100/80 08/02/23 11:16 BMI result Body Mass Index 21.0 APPEARANCE: Patient in no acute distress EYES no redness, normal EARS:? External ear normal. NOSE/SINUS:? Airflow through both nares, no nasal discharge, no bleeding THROAT:? Oral mucosa moist, no ulcerations NECK:? No thyromegaly or masses, no adenopathy, trachea midline. HEART:? Regular rhythm, S1-S2 heard, no murmurs, rubs or gallops. LUNG:? Clear to percussion and auscultation EXTREMITIES:? No edema, no calf tenderness, normal peripheral pulses. NEURO:? Oriented and alert x3.? No focal weakness.? Reflexes symmetric.? Gait normal. SKIN:? There are no skin lesions evident. No objective signs of Raynaud's phenomenon. JOINT EXAM: Cervical Spine:.? Full range of motion without pain; no tenderness. Thoracic Spine:.? No scoliosis.? No tenderness on palpation. Lumbar Spine:.? Alignment normal.? Full range of motion without pain, no tenderness. Chest Wall:.? No tenderness, swelling, increased warmth or erythema. Hands:.?Decreased range of motion with marked tenderness, swelling, increased warmth or erythema. More tenderness at 2d and 3rd MCPs bilaterally. There is Ulnar deviation. 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 Wrists:.? Normal pain-free range of motion without tenderness, swelling, increased warmth or erythema. Elbows:. Normal pain-free range of motion without tenderness, swelling, increased warmth or erythema. Shoulders:.?? Decrease range of motion to left at 110 degrees over head raise. Has discomfort but No tenderness, weakness, swelling, increased warmth or erythema. Hip bursa:.? No tenderness. Knees:.?? Normal pain-free range of motion without tenderness, swelling, increased warmth or erythema.? There is no effusion or crepitation Ankles:.? Normal pain-free range of motion without tenderness, swelling, increased warmth or erythema. Feet:.? Normal pain-free range of motion without tenderness, swelling, increased warmth or erythema. Tender points:? No tenderness to digital palpation at the occiput, trapezius, second rib, lateral epicondyle, knees, greater trochanter and gluteal area bilaterally. ? Results Reviewed Results Reviewed: Laboratory Tests 07/18/23 07/18/23 09:20 10:01 WBC 5.2 RBC 4.65 Hgb 15.5 Hct 43.8 ESR 10 Calcium 9.8 Total Creatine Kinase 181 H 25-OH Vitamin D Total 32 IgA Total 530 H IgM 34 L Rheumatoid Factor < 13.0 Cycl Citrul Peptide IgG <16 PATRICK Titer 1:80 H Complement C3 100 Complement C4 19 TB Test (T-Spot) Com Positive A Assessment & Plan Assessment & Plan (1) Joint pain in both hands: Code(s): M25.541 - Pain in joints of right hand; M25.542 - Pain in joints of left hand Category: Medical (2) Bilateral hand swelling: Code(s): M79.89 - Other specified soft tissue disorders Category: Medical (3) Inflammatory arthritis: Code(s): M19.90 - Unspecified osteoarthritis, unspecified site Category: Medical (4) Encounter before starting medication: Code(s): Z76.89 - Persons encountering health services in other specified circumstances Category: Medical (5) Seronegative rheumatoid arthritis: Comment: She has no hemoptysis and no weight loss or lymphadenopathy She had prior positive TB test and then negative per Dr Barth. She has never been treated. Code(s): M06.00 - Rheumatoid arthritis without rheumatoid factor, unspecified site Category: Medical Plan #Seronegative RA: Ms. Sevilla 67 yoF presents with tender, swollen erythematous hands with ulnar deviation. Clearly there is inflammatory arthritis present. I have reviewed her labs and xrays from a 2018 Rheum work up, and there were no significant findings at that time, except for mildly elevated ESR/CRP and hand OA. The updated Rheum panel, hand xray and a baseline chest Xray is much the same except the IgA is elevated suggesting acute inflammatory process. I will start on prednisone and consider immuosuppressive therapy after clearance from ID given the positive TB. #+TB: Will refer to ID to be evaluated for latent TB. #Osteopenia: T-Score -1.7. Continue calcium carbonate 500 mg-vitamin D3 5 mcg (200 unit) tablet I spent 20 minutes reviewing history, evaluating patient and documenting F/U 3 months Medications: New prednisone 3 tablets per day x 7 days 2 tablets per day x 7 days 1 tablet per day. 90 tabs 1RF M06.00 - Rheumatoid arthritis without rheumatoid factor, unspecified site, M79.89 - Other specified soft tissue disorders Coding Level of Care Code Est Pt Level 3 (17538) Complex EM visit Add On G2211 Diagnoses Joint pain in both hands M25.541; M25.542 Bilateral hand swelling M79.89 Inflammatory arthritis M19.90 Encounter before starting medication Z76.89 Seronegative rheumatoid arthritis M06.00
[2023-08-02 11:16] VITALS: BP 100/80; PULSE 80; BMI 21.0
== END 2023-08-02 11:47 | disposition home or self-care (01) ==
LOC: HO.RHE 11:07
PROVIDERS: PCP Internal Medicine; Visit Provider Nurse Practitioner Family
DX: M25.541 Pain in joints of right hand (principal); M25.542 Pain in joints of left hand; M79.89 Other specified soft tissue disorders; M19.90 Unspecified osteoarthritis, unspecified site; Z76.89 Persons encountering health services in other specified circumstances; M06.00 Rheumatoid arthritis without rheumatoid factor, unspecified site
CPT/HCPCS: 99213; G2211

== ENCOUNTER → 2023-08-02 11:07 | Outpatient (BNVA) | payer OTHER, SELFPAY | PROVIDERS: PCP Internal Medicine; Visit Provider Nurse Practitioner Family | DX: M25.541 Pain in joints of right hand (principal); M25.542 Pain in joints of left hand; M79.89 Other specified soft tissue disorders; M19.90 Unspecified osteoarthritis, unspecified site; M06.00 Rheumatoid arthritis without rheumatoid factor, unspecified site; Z76.89 Persons encountering health services in other specified circumstances | CPT/HCPCS: 99212 ==

== ENCOUNTER 2023-08-13 14:03 | Outpatient (AMB) | payer OTHER, SELFPAY ==
--- NOTE | 2023-08-13 14:06 | A.OFFVIS_ITS ---
Vital Signs 08/13/23 14:24 Height 5 ft 3 in Weight 120 lb BMI 21.3 Pulse 54 Pulse Source Pulse Oximeter Pulse Oximetry (%) 99 Intake Visit Reasons: reff rehemotology for spot test result Publication Manager Required: Yes Publication Manager Name: Ashlyn Amador CMA Information Interpreted: clinical only Allergies No Known Allergies Allergy (Mild, Verified 08/13/23 14:30) HPI HPI reff rehemotology for spot test result: Details: She is referral from Rheumatology. She has T spot positive on 07/17. She sees Dr Barth and had positive Tspot before and then negative on second check. She has no exposure to tuberculosis and no treatment. [facility] Medical History Seronegative rheumatoid arthritis Positive TB test Encounter before starting medication Smoker unmotivated to quit Inflammatory arthritis Bilateral hand swelling Joint pain in both hands High blood cholesterol HTN (hypertension) Social History Household Members Other:: lives alone Alcohol intake: current Alcohol intake frequency: 0-2 drinks per day Alcohol type: beer Patient Tobacco Use Status: Current everyday Tobacco user Cigarette Packs Per Day: 1 Substance Use Type: Marijuana Review of Systems Const All systems reviewed & are unremarkable except as noted in HPI and below Physical Exam Vital Signs: Last Vital Signs Pulse 54 08/13/23 14:24 Pulse Ox 99 08/13/23 14:24 BMI result Body Mass Index 21.3 Const General: cooperative Orientation/consciousness: patient oriented x3 HEENT Head: Yes normal to inspection Mouth: Normal oral and palatal mucosa present Eyes General: appearance normal, both eyes and all related structures Pupils: Equal, round and reactive pupils present Resp Effort & Inspection: normal respiratory effort Cardio Rate: regular rate Rhythm: regular rhythm GI Palpation (GI): Soft to palpation and nontender General: Yes no CVA tenderness Back/Spine/Pelvis Back: no CVA tenderness Skin General skin exam: no rashes or lesions noted Neuro General: patient oriented x3 Cranial nerves: Yes CN's II-XII intact bilaterally and Yes Equal, round and reactive pupils present Extrem General: Yes normal to inspection Psych Appearance: grossly normal Assessment & Plan Assessment & Plan (1) Seronegative rheumatoid arthritis: Comment: She has no hemoptysis and no weight loss or lymphadenopathy She had prior positive TB test and then negative per Dr Barth. She has never been treated. Code(s): M06.00 - Rheumatoid arthritis without rheumatoid factor, unspecified site Category: Medical Plan: Would recheck Tspot and LFTs. If positive 6-9 months po INH 300 mg daily and vitamin B6 50 mg daily. She will call us next week and we will see again if positive. Orders: Orders Liver Panel Today M06.00 - Rheumatoid arthritis without rheumatoid factor, unspecified site T Spot TB Today M06.00 - Rheumatoid arthritis without rheumatoid factor, unspecified site Coding Level of Care Code New Pt Level 4 (68874) Diagnoses Seronegative rheumatoid arthritis M06.00
[2023-08-13 14:24] VITALS: PULSE 54; O2SAT 99; BMI 21.3
== END 2023-08-13 14:53 | disposition home or self-care (01) ==
PROVIDERS: PCP Internal Medicine; Visit Provider Internal Medicine
DX: M06.00 Rheumatoid arthritis without rheumatoid factor, unspecified site (principal)
CPT/HCPCS: 99204

== ENCOUNTER → 2023-08-13 14:03 | Outpatient (BNVA) | payer OTHER, SELFPAY | PROVIDERS: PCP Internal Medicine; Visit Provider Internal Medicine | DX: M06.00 Rheumatoid arthritis without rheumatoid factor, unspecified site (principal) | CPT/HCPCS: 99202 ==

== ENCOUNTER 2023-10-10 14:26 | Outpatient (REF) | payer OTHER, SELFPAY ==
--- NOTE | ~2023-10-10 | MM_ITS ---
EXAMINATION: MM DIAGNOSTIC DIGITAL MAMMOGRAPHY, LEFT CLINICAL INFORMATION: Diagnostic follow-up for left breast upper far outer posterior calcifications with associated possible underlying density. COMPARISON: Mammography: 07/24/2023, 07/07/2022, 01/21/2021, 10/02/2019. TECHNIQUE: Digital mammography is performed in the following views: Left breast 2-D spot magnification CC, and ML x3 views were obtained. FINDINGS: There are scattered areas of fibroglandular density (ACR BI-RADS breast composition Category b). Within the posterior upper outer left breast, there is a loosely grouped region of microcalcifications, slightly increasing in number from prior exams. These have a largely coarse and type appearance, are loosely grouped, minimally pleomorphic, with no branching, casting, or linear forms, and no suspicious distribution. These are probably benign. Six-month follow-up recommended. There is no persistent underlying suspicious density in the region of the calcifications. Stable architectural distortion from prior excisional biopsies noted in the central slightly upper left breast. MM/MM added views LT IMPRESSION: -No findings suspicious for malignancy left breast. -Probably benign calcifications upper outer quadrant left breast for which six-month follow-up magnification views recommended. ASSESSMENT: BI-RADS BI-RADS 3 - Probably benign finding(s) - 6 month follow-up suggested RECOMMENDATION: 6 Month F/U This patient's information was entered into a reminder system with a target due date for their next mammogram.
== END 2023-10-10 14:27 | disposition home or self-care (01) ==
LOC: HO.MAMMO 14:26
PROVIDERS: PCP Internal Medicine; Visit Provider Internal Medicine
DX: N64.89 Other specified disorders of breast (principal); R92.1 Mammographic calcification found on diagnostic imaging of breast
CPT/HCPCS: 77065

== ENCOUNTER → 2023-10-10 14:30 | Outpatient (BNV) | payer OTHER, SELFPAY | PROVIDERS: PCP Internal Medicine; Visit Provider Radiology Diagnostic Radiology | DX: R92.1 Mammographic calcification found on diagnostic imaging of breast (principal) | CPT/HCPCS: 77065 ==

== ENCOUNTER 2023-10-18 16:27 | Outpatient (REF) | payer OTHER, SELFPAY ==
[2023-10-18 17:57] LABS: Bacterial Vaginosis PCR POSITIVE (Negative); Candida Group PCR NOT DETECTED (Not Detect); Candida glab krusei PCR NOT DETECTED (Not Detect); Trichomonas vaginalis PCR NOT DETECTED (Not Detect)
[2023-10-18 18:26] LABS: CT PCR NOT DETECTED (Not Detect.); NG PCR NOT DETECTED (Not Detect.)
[2023-10-31 05:44] LABS: HPV 16,18/45 NOT DETECTED (NOT DETECTED); HPV mRNA E6/E7 Detected (Not Detected)
== END 2023-10-18 16:28 | disposition home or self-care (01) ==
LOC: HO.HHCLNP 16:27
PROVIDERS: Visit Provider Internal Medicine
DX: N89.8 Other specified noninflammatory disorders of vagina (principal); R87.610 Atypical squamous cells of undetermined significance on cytologic smear of cervix (ASC-US)
CPT/HCPCS: 0352U; 87491; 87591; 87624; 87625; 88175

== ENCOUNTER 2023-11-14 17:00 | Emergency (ER) | payer OTHER, SELFPAY ==
--- NOTE | ~2023-11-14 | CT_ITS ---
EXAMINATION: CT HEAD WITHOUT IV CONTRAST CLINICAL INFORMATION: new onset headache COMPARISON: CT head without contrast 10/19/2017 TECHNIQUE: Contiguous axial imaging was performed from the skull base to vertex without intravenous contrast. Sagittal and coronal reformatted images were obtained. This CT examination was performed using dose optimization techniques as appropriate, variously including the following: * Automated exposure control * Adjustment of mA and/or kV according to patient size (this includes techniques or standardized protocols for targeted exams where dose is matched to indication/reason for exam; i.e. extremities or head) Use of iterative reconstruction technique DLP: 582 mGy-cm FINDINGS: No acute osseous or soft tissue abnormality. Chronic left orbital floor fracture and depression. The mastoid air cells and visualized portions of the paranasal sinuses are well aerated. There is no evidence of acute intracranial hemorrhage or territorial infarction. No abnormal mass effect or midline shift is seen. [place] to white matter differentiation is well preserved. No extra-axial fluid collections are identified. No hydrocephalus. Proportional prominence of the ventricles and sulcal spaces related to volume loss. Patchy periventricular and deep white matter hypoattenuation is consistent with mild small vessel ischemic changes. Chronic encephalomalacia in the inferior left frontal and anterior left temporal lobes, likely posttraumatic. CT/CT head/brain wo IV con IMPRESSION: No acute intracranial abnormality including hemorrhage, mass effect, hydrocephalus, or acute territorial edematous infarction. Electronically signed by: Jake Mccoy MD 11/14/2023 08:53 PM EDT
[2023-11-14 17:12] VITALS: BP 144/96; PULSE 66; RESP 16; TEMP 36.3; O2SAT 95; BMI 23.8
--- NOTE | 2023-11-14 17:12 | ECG_ITS ---
Test Reason : HTN Blood Pressure : / mmHG Vent. Rate : 053 BPM Atrial Rate : 053 BPM P-R Int : 154 ms QRS Dur : 080 ms QT Int : 438 ms P-R-T Axes : 065 032 052 degrees QTc Int : 410 ms Sinus bradycardia Otherwise normal ECG When compared with ECG of 19-OCT-2021 09:50, No significant change was found Referred By: Twan Gutiérrez Electronically Signed By:DAHIANA ALBARRAN
--- NOTE | 2023-11-14 17:13 | ED.GENADULT ---
HPI - General Adult General Chief complaint: Headache Stated complaint: headache and blood pressure problems Time Seen by Provider: 11/14/23 19:51 Source: patient Mode of arrival: ambulatory Limitations: no limitations History of Present Illness ED Provider: vicky ENRIQUEZ narrative: Patient's history of hypertension been having headache for last 3 days got worse since last night no nausea no vomiting no light sensitivity noted blood pressure slightly on the higher side 156/100 no history of migraine headache patient feels comfortable patient noticed that whenever she takes isosorbide she gets headache and she been taking that medicine for last 3 -4 days Related Data Home Medications ?Medication ?Instructions ?Recorded ?Confirmed aripiprazole 5 mg tablet 5 mg PO DAILY 05/09/23 05/09/23 calcium carbonate 500 mg-vitamin 1 tab PO BID 05/09/23 05/09/23 D3 5 mcg (200 unit) tablet (Oyster Shell Calcium-Vitamin D3) hydrochlorothiazide 25 mg tablet 25 mg PO DAILY 05/09/23 05/09/23 losartan 100 mg tablet 100 mg PO DAILY 05/09/23 05/09/23 metoprolol tartrate 25 mg tablet 25 mg PO BID 05/09/23 05/09/23 pravastatin 40 mg tablet 40 mg PO DAILY 05/09/23 05/09/23 zolpidem 5 mg tablet 5 mg PO BEDTIME PRN 05/09/23 05/09/23 citalopram 20 mg tablet 20 mg PO DAILY 06/13/23 ipratropium 20 mcg-albuterol 100 inhalation 06/13/23 mcg/actuation mist for inhalation (Combivent Respimat) Previous Rx's ?Medication ?Instructions ?Recorded acetaminophen 650 mg 650 mg PO Q8H #90 tabs 07/06/20 tablet,extended release prednisone 5 mg tablet See Rx Instructions PO DAILY #90 08/02/23 tabs Allergies Allergy/AdvReac Type Severity Reaction Status Date / Time No Known Allergies Allergy Mild Verified 11/14/23 17:15 Review of Systems Review of Systems: Yes all other systems are reviewed and are negative PMF Past Medical History Medical History Seronegative rheumatoid arthritis Positive TB test Encounter before starting medication Smoker unmotivated to quit Inflammatory arthritis Bilateral hand swelling Joint pain in both hands High blood cholesterol HTN (hypertension) Social History Social History Household Members Other:: lives alone Alcohol intake: current Alcohol intake frequency: holidays/special occasions only Alcohol type: beer Patient Tobacco Use Status: Current everyday Tobacco user Cigarette Packs Per Day: 1 Smoked in Last 30 Days: Yes Use of substances other than those prescribed or required for medical reasons: Yes Substance Use Type: Marijuana Advance Directives: No Advance Directives Information Provided: No Physical Exam ED Vital Signs: Vital Signs - 24 hr 11/14/23 17:12 11/14/23 19:57 11/14/23 21:08 Temperature 97.3 F 97.4 F 98.0 F Pulse Rate 66 71 64 Respiratory Rate 16 15 18 Blood Pressure 144/96 H 168/95 H 138/94 H Pulse Oximetry 95 98 99 Oxygen Delivery Method Room Air Room Air Room Air 11/14/23 22:01 Temperature 98.0 F Pulse Rate 64 Respiratory Rate 18 Blood Pressure 138/94 H Pulse Oximetry 99 Oxygen Delivery Method Room Air BMI result Body Mass Index 23.8 Appearance: Alert. Oriented X3. No acute distress. Eyes: PERRLA, No Nystagmus ENT: Pharynx normal. Oral Mucosa moist no temporal artery tenderness Neck: Normal inspection. Neck supple. CVS: Normal heart rate and rhythm. Pulses normal. Respiratory: No respiratory distress. Equal air entry bilateral, no wheezing/rales/rhonchi Abdomen: Soft and nontender. Bowel sounds are present, Skin: Skin warm and dry. Normal skin color. Normal skin turgor. Extremities: No lower extremity edema. No calf tenderness Neuro: Oriented X 3. No motor deficit. No sensory deficit.No cerebellar signs , cranial nerves II-XII intact Course Course Course Narrative: This is an RME done by SANDRA Gutiérrez: Additional HPI, ROS, PE not included below will be deferred to primary provider. 68-year-old female presents with headache and concerns her blood pressure is high has been ongoing for the past 2 days. Reports yesterday she had a headache however it went away on its own. Physical exam benign. Neurological assessment nonfocal. Medications Administered Discontinued Medications Generic Name Dose Route Start Last Admin Trade Name Freq PRN Reason Stop Dose Admin Acetaminophen/Butalbital/Caffeine 1 tab 11/14/23 20:28 09/11/24 21:05 Butalb/Acetamin/Caff 50/325/40 Tablet PO 11/14/23 20:29 1 tab ONCE ONE Administration Medical Decision Making Medical Decision Making [facility] Narrative: Patient's headache likely secondary to taking isosorbide which she been taking for last few days possible migraine will give Fioricet discharge patient home CT scan of the head is negative labs are stable Lab Data [facility] Lab Attestation statement: I reviewed the patient's lab results. 11/14/23 17:25 11/14/23 17:25 Labs: Lab Results 11/14/23 Range/Units 17:25 WBC 7.9 (4.8-10.8) X10*3/uL RBC 4.02 L (4.20-5.50) X10*6/uL Hgb 13.8 (12.0-16.0) g/dl Hct 37.5 (37.0-47.0) % MCV 93.3 (80.0-98.0) fL MCH 34.3 H (27.0-33.0) pg MCHC 36.8 H (31.0-35.0) g/dl RDW 11.5 (11.0-16.0) % Plt Count 326 (160-400) X10*3/uL MPV 8.3 L (9.4-12.3) fL Immature Gran % (Auto) 0.4 (0.0-0.4) % Neut % (Auto) 53.4 (45-73) % Lymph % (Auto) 32.6 (20-40) % [place] % (Auto) 11.1 H (2-11) % Eos % (Auto) 1.9 (0-4) % Baso % (Auto) 0.6 (0-2) % Lymph # (Auto) 2.6 (1.2-4.9) X10*3/uL [place] # (Auto) 0.9 (0.1-1.2) X10*3/uL Eos # (Auto) 0.2 (0.0-0.4) X10*3/uL Baso # (Auto) 0.1 (0.0-0.2) X10*3/uL Abs Immat Gran (auto) 0.03 (0.00-0.03) X10*3/uL Absolute Neuts (auto) 4.2 (2.0-8.3) x10*3/uL Absolute Nucleated RBC 0.000 (0.0-0.012) X10*3/uL Nucleated RBC % (auto) 0.0 (0.0-0.2) /100WBC Sodium 129 L (135-145) mmol/L Potassium 4.2 (3.3-5.1) mmol/L Chloride 96 (96-108) mmol/L Carbon Dioxide 28 (22-29) mmol/L Anion Gap 9 L (12-20) BUN 20 H (9-16) mg/dL Creatinine 0.88 (0.5-1.4) mg/dL Estim Creat Clear Calc 49.7 Estimated GFR > 60 Random Glucose 100 (60-115) mg/dL Calcium 9.7 (8.4-10.2) mg/dL Total Bilirubin 0.3 (0.0-1.0) mg/dL AST 27 (5-31) U/L ALT 12 (0-31) U/L Alkaline Phosphatase 105 (39-117) U/L Troponin I High Sens < 2.7 (<3.5-17.0) ng/L Total Protein 7.3 (6.5-8.0) g/dL Albumin 4.0 (3.5-5.0) g/dL Independent Interpretation I performed an independent interpretation of an: CT Scan Radiology Impression Discussion of test interpretation with radiology: I have reviewed the radiologist's reading. Radiologist Impression: Negative Discharge Plan Discharge Clinical Impression: Migraine Patient Disposition: Home, Self-Care Instructions: Migraine Headache (ED) Additional Instructions: Stop taking isosorbide maybe that is the cause for the headache Continue other blood pressure medication Take Tylenol 1 tablet every 8 hours as needed for the headache Follow with your PCP if not better Prescriptions: No Action acetaminophen 650 mg tablet extended release 650 mg PO Q8H Qty: 90 5RF citalopram 20 mg tablet 20 mg PO DAILY Combivent Respimat 20-100 mcg/actuation mist inhalation prednisone 5 mg tablet See Rx Instructions PO DAILY Qty: 90 1RF Rx Instructions: 3 tablets per day x 7 days 2 tablets per day x 7 days 1 tablet per day. losartan 100 mg tablet 100 mg PO DAILY metoprolol tartrate 25 mg tablet 25 mg PO BID hydrochlorothiazide 25 mg tablet 25 mg PO DAILY calcium carbonate-vitamin D3 [Oyster Shell Calcium-Vit D3] 500 mg-5 mcg (200 unit) tablet 1 tab PO BID zolpidem 5 mg tablet 5 mg PO BEDTIME PRN pravastatin 40 mg tablet 40 mg PO DAILY aripiprazole 5 mg tablet 5 mg PO DAILY Interventions: ED Discharge Assessment Last Done: 11/14/23 22:01 Discharge Date/Time: 11/14/23 22:02 Print Language: Mauritian
[2023-11-14 17:29] LABS: MANUAL DIFF FLAG NO
[2023-11-14 17:32] LABS: Basophils Absolute Auto 0.1 X10*3/uL (0.0-0.2); Basophils Percent Auto 0.6 % (0-2); Eosinophils Absolute Auto 0.2 X10*3/uL (0.0-0.4); Eosinophils Percent Auto 1.9 % (0-4); Hematocrit 37.5 % (37.0-47.0); Hemoglobin 13.8 g/dl (12.0-16.0); Imm Gran Abs Auto 0.03 X10*3/uL (0.00-0.03); Imm Gran Pct Auto 0.4 % (0.0-0.4); Lymphocytes Absolute Auto 2.6 X10*3/uL (1.2-4.9); Lymphocytes Percent Auto 32.6 % (20-40); Mean Corpuscular HGB Conc 36.8 g/dl (31.0-35.0); Mean Corpuscular Hemoglobin 34.3 pg (27.0-33.0); Mean Corpuscular Volume 93.3 fL (80.0-98.0); Mean Platelet Volume 8.3 fL (9.4-12.3); Monocytes Absolute Auto 0.9 X10*3/uL (0.1-1.2); Monocytes Percent Auto 11.1 % (2-11); Neutrophils Absolute Auto 4.2 x10*3/uL (2.0-8.3); Neutrophils Percent Auto 53.4 % (45-73); Platelet Count 326 X10*3/uL (160-400); Red Blood Count 4.02 X10*6/uL (4.20-5.50); Red Cell Distribution Width 11.5 % (11.0-16.0); White Blood Count 7.9 X10*3/uL (4.8-10.8)
[2023-11-14 17:48] LABS: Alanine Aminotransferase 12 U/L (0-31); Alkaline Phosphatase 105 U/L (39-117); Anion Gap 9 (12-20); Aspartate Amino Transferase 27 U/L (5-31); Bilirubin Total 0.3 mg/dL (0.0-1.0); Blood Urea Nitrogen 20 mg/dL (9-16); Calcium 9.7 mg/dL (8.4-10.2); Carbon Dioxide 28 mmol/L (22-29); Chloride 96 mmol/L (96-108); Creatinine Clr Calc Pharmacy 49.7; Estimated Glomerular Filt Rate > 60; Glucose Random 100 mg/dL (60-115); Potassium 4.2 mmol/L (3.3-5.1); Sodium 129 mmol/L (135-145); Total Protein 7.3 g/dL (6.5-8.0)
[2023-11-14 17:59] LABS: Troponin-I High Sensitivity < 2.7 ng/L (<3.5-17.0)
[2023-11-14 19:57] VITALS: BP 168/95; PULSE 71; RESP 15; TEMP 36.3; O2SAT 98
[2023-11-14] MEDS: Butalb/Acetamin/Caff 50/325/40 TABLET 1 TAB PO (21:05)
[2023-11-14 21:08] VITALS: BP 138/94; PULSE 64; RESP 18; TEMP 36.7; O2SAT 99
[2023-11-14 22:01] VITALS: BP 138/94; PULSE 64; RESP 18; TEMP 36.7; O2SAT 99
== END 2023-11-14 22:02 | disposition home or self-care (01) ==
PROVIDERS: Physician Assistant; Emergency Provider Internal Medicine; PCP Internal Medicine
DX: G43.909 Migraine, unspecified, not intractable, without status migrainosus (principal); R00.1 Bradycardia, unspecified; I10 Essential (primary) hypertension; Z79.899 Other long term (current) drug therapy
CPT/HCPCS: 36415; 70450; 80053; 84484; 85025; 93005; 99284; 99285

== ENCOUNTER 2023-12-04 09:31 | Outpatient (REF) | payer OTHER, SELFPAY ==
[2023-12-04 11:32] LABS: Alanine Aminotransferase 11 U/L (0-31); Albumin Level 4.3 g/dL (3.5-5.0); Alkaline Phosphatase 116 U/L (39-117); Anion Gap 16 (12-20); Aspartate Amino Transferase 20 U/L (5-31); Bilirubin Direct 0.2 mg/dL (0.0-0.5); Bilirubin Total 0.7 mg/dL (0.0-1.0); Blood Urea Nitrogen 18 mg/dL (9-16); Calcium 10.1 mg/dL (8.4-10.2); Carbon Dioxide 24 mmol/L (22-29); Chloride 97 mmol/L (96-108); Estimated Glomerular Filt Rate > 60; Glucose Random 120 mg/dL (60-115); Potassium 4.9 mmol/L (3.3-5.1); Sodium 132 mmol/L (135-145); Total Protein 7.6 g/dL (6.5-8.0)
[2023-12-04 11:44] LABS: HBS Num1 567.22 mIU/mL (0-7.99); HBc Num1 0.09 S/CO (0.00-0.79); HBsAGNum1 0.28 S/CO (0.00-0.99); HIV AB/AG Nonreactive (Nonreactive); HIV Num 1 0.05 S/CO (0.00-0.99); Hepatitis A Antibody IgM 0.16 Index (0-0.79); Hepatitis B Core Antibody Nonreactive (Nonreactive); Hepatitis B Surface Antigen Negative (Negative); TSH reflex Free T4 1.84 uIU/mL (0.32-4.0); Vitamin D 25-OH Total 46.2 ng/mL (>30); ~Hepatitis A Antibody IgM Nonreactive (Nonreactive); ~Hepatitis B Surface Antibody REACTIVE (Nonreactive); ~Hepatitis C Antibody Nonreactive (Nonreactive)
[2023-12-07 03:03] LABS: TS Negative Control Passed; TS Panel A 43; TS Panel B 42; TS Positive Control Passed; TSpotTB Positive (Negative)
[2023-12-07 11:39] LABS: RPR Rapid Plasma Reagin NON-REACTIVE (NON-REACTIVE)
== END 2023-12-04 09:32 | disposition home or self-care (01) ==
LOC: HO.HHCL 09:31
PROVIDERS: Referring Provider Internal Medicine; Visit Provider Internal Medicine
DX: Z00.00 Encounter for general adult medical examination without abnormal findings (principal); M06.00 Rheumatoid arthritis without rheumatoid factor, unspecified site; I10 Essential (primary) hypertension; M85.80 Other specified disorders of bone density and structure, unspecified site
CPT/HCPCS: 36415; 80048; 80076; 82306; 84443; 86481; 86592; 86704; 86706; 86709; 86803; 87340; 87389

== ENCOUNTER 2023-12-19 09:19 | Outpatient (REF) | payer OTHER, SELFPAY ==
[2023-12-19 12:08] LABS: Estimated Average Glucose 108 mg/dL; Hemoglobin A1C 130.1739 umol/L; Hemoglobin A1c % 5.4 % (<6.0); Total Hemoglobin (HGBA1C) 3685.0805 umol/L
[2023-12-19 12:15] LABS: Anion Gap 16 (12-20); Blood Urea Nitrogen 22 mg/dL (9-16); Calcium 9.7 mg/dL (8.4-10.2); Carbon Dioxide 23 mmol/L (22-29); Chloride 97 mmol/L (96-108); Cholesterol 224 mg/dL (<200); Estimated Glomerular Filt Rate > 60; Glucose Random 108 mg/dL (60-115); HDL Cholesterol 92 mg/dL (>40); LDL Cholesterol Calculated 117 mg/dL (<100); Potassium 4.7 mmol/L (3.3-5.1); Sodium 131 mmol/L (135-145); Triglycerides 79 mg/dL (<150)
== END 2023-12-19 09:20 | disposition home or self-care (01) ==
LOC: HO.HHCL 09:19
PROVIDERS: Visit Provider Internal Medicine
DX: R73.9 Hyperglycemia, unspecified (principal); E78.2 Mixed hyperlipidemia
CPT/HCPCS: 36415; 80048; 80061; 83036

== ENCOUNTER 2023-12-25 07:24 | Day surgery (SDC) | payer OTHER, SELFPAY ==
[2023-12-25] MEDS: Lactated Ringers 1,000 ML 100 ML IVCONT (09:32)
[2023-12-25 09:40] VITALS: BMI 20.2
[2023-12-25 09:41] VITALS: BP 155/85; PULSE 63; RESP 18; TEMP 36.6; O2SAT 100
--- NOTE | 2023-12-25 10:00 | P.CONAN_ITS ---
Documented by User: Caitlin Ortega NP 12/24/23 12:10 HPI - Anesthesia Eval Consult details Narrative: 68yo F for Colonoscopy PMFSH Active Problems Active Problems: All Active Problems Seronegative rheumatoid arthritis (Acute) Positive TB test (Acute) Encounter before starting medication (Acute) Smoker unmotivated to quit (Acute) Inflammatory arthritis (Acute) Bilateral hand swelling (Acute) Joint pain in both hands (Acute) History of breast biopsy (Acute) Encounter for screening colonoscopy (Acute) COVID-19 (Acute) Past Medical History Medical History Seronegative rheumatoid arthritis Positive TB test Encounter before starting medication Smoker unmotivated to quit Inflammatory arthritis Bilateral hand swelling Joint pain in both hands High blood cholesterol HTN (hypertension) Surgical History Surgical History (Updated 12/25/23 @ 09:44 by Daksha Norwood RN) Hx of esophagogastroduodenoscopy Hx of colonoscopy Social History Social History Household Members Other:: lives alone Are you a primary home health care case manager to a significant other at home: No Do you presently have visiting nurse or other home services: No Alcohol intake: current Alcohol intake frequency: holidays/special occasions only Alcohol type: beer Patient Tobacco Use Status: Current everyday Tobacco user Cigarette Packs Per Day: 1 Smoked in Last 30 Days: Yes Patient Interested in Nicotine Replacement: No Substance Use Type: Marijuana Substance Use Frequency: Occasionally Have you been hit, kicked, punched, or otherwise hurt by someone within the past year? If so, by whom?: No Are you DNR?: No Advance Directives: No Advance Directives Information Provided: Yes Recently lost weight without trying: Unsure Meds Allergies Allergy/AdvReac Type Severity Reaction Status Date / Time No Known Allergies Allergy Mild Verified 12/25/23 09:44 Home Medications ?Medication ?Instructions ?Recorded ?Confirmed ?Last Taken ?Type aripiprazole 5 mg tablet 5 mg PO DAILY 05/09/23 12/25/23 Unknown History calcium carbonate 500 mg-vitamin 1 tab PO BID 05/09/23 12/25/23 Unknown History D3 5 mcg (200 unit) tablet (Oyster Shell Calcium-Vitamin D3) hydrochlorothiazide 25 mg tablet 25 mg PO DAILY 05/09/23 12/25/23 Unknown History losartan 100 mg tablet 100 mg PO DAILY 05/09/23 12/25/23 Unknown History metoprolol tartrate 25 mg tablet 25 mg PO BID 05/09/23 12/25/23 Unknown History pravastatin 40 mg tablet 40 mg PO DAILY 05/09/23 12/25/23 Unknown History zolpidem 5 mg tablet 5 mg PO BEDTIME PRN Insomnia 05/09/23 12/25/23 Unknown History citalopram 20 mg tablet 20 mg PO DAILY 06/13/23 12/25/23 Unknown History ipratropium 20 mcg-albuterol 100 inhalation 06/13/23 Unknown History mcg/actuation mist for inhalation (Combivent Respimat) Exam Pertinent Lab Results Pertinent Lab Results: Laboratory Tests 11/14/23 12/19/23 17:25 09:22 WBC 7.9 Hgb 13.8 Hct 37.5 Plt Count 326 Sodium 131 L Potassium 4.7 Chloride 97 Carbon Dioxide 23 BUN 22 H Creatinine 0.93 Narrative Narrative: EKG 11/2023 Vent. Rate : 053 BPM Atrial Rate : 053 BPM P-R Int : 154 ms QRS Dur : 080 ms QT Int : 438 ms P-R-T Axes : 065 032 052 degrees QTc Int : 410 ms Sinus bradycardia Otherwise normal ECG When compared with ECG of 19-OCT-2021 09:50, No significant change was found Assessment and Plan Assessment Anesthesia Assessment: Chart Reviewed Documented by User: Dolores Orellana DO 12/25/23 10:00 [facility] Past Medical History Medical History Seronegative rheumatoid arthritis Positive TB test Encounter before starting medication Smoker unmotivated to quit Inflammatory arthritis Bilateral hand swelling Joint pain in both hands High blood cholesterol HTN (hypertension) Family History Family history of problems with anesthesia: No Surgical History Surgical History (Updated 12/25/23 @ 09:44 by Daksha Norwood RN) Hx of esophagogastroduodenoscopy Hx of colonoscopy History of Problems with Anesthesia: No Social History Social History Household Members Other:: lives alone Are you a primary home health care case manager to a significant other at home: No Do you presently have visiting nurse or other home services: No Alcohol intake: current Alcohol intake frequency: holidays/special occasions only Alcohol type: beer Patient Tobacco Use Status: Current everyday Tobacco user Cigarette Packs Per Day: 1 Smoked in Last 30 Days: Yes Patient Interested in Nicotine Replacement: No Substance Use Type: Marijuana Substance Use Frequency: Occasionally Have you been hit, kicked, punched, or otherwise hurt by someone within the past year? If so, by whom?: No Are you DNR?: No Advance Directives: No Advance Directives Information Provided: Yes Recently lost weight without trying: Unsure Meds Allergies Allergy/AdvReac Type Severity Reaction Status Date / Time No Known Allergies Allergy Mild Verified 12/25/23 09:44 Home Medications ?Medication ?Instructions ?Recorded ?Confirmed ?Last Taken ?Type aripiprazole 5 mg tablet 5 mg PO DAILY 05/09/23 12/25/23 Unknown History calcium carbonate 500 mg-vitamin 1 tab PO BID 05/09/23 12/25/23 Unknown History D3 5 mcg (200 unit) tablet (Oyster Shell Calcium-Vitamin D3) hydrochlorothiazide 25 mg tablet 25 mg PO DAILY 05/09/23 12/25/23 Unknown History losartan 100 mg tablet 100 mg PO DAILY 05/09/23 12/25/23 Unknown History metoprolol tartrate 25 mg tablet 25 mg PO BID 05/09/23 12/25/23 Unknown History pravastatin 40 mg tablet 40 mg PO DAILY 05/09/23 12/25/23 Unknown History zolpidem 5 mg tablet 5 mg PO BEDTIME PRN Insomnia 05/09/23 12/25/23 Unknown History citalopram 20 mg tablet 20 mg PO DAILY 06/13/23 12/25/23 Unknown History ipratropium 20 mcg-albuterol 100 inhalation 06/13/23 Unknown History mcg/actuation mist for inhalation (Combivent Respimat) Exam Exam Date and Time: 12/25/23 0957 Height,Weight and Vital Signs: Height 5 ft 3 in Weight 51.71 kg Vital Signs Temperature 97.9 F 12/25/23 09:41 Pulse Rate 63 12/25/23 09:41 Respiratory Rate 18 12/25/23 09:41 Blood Pressure 155/85 H 12/25/23 09:41 Pulse Oximetry 100 12/25/23 09:41 Oxygen Delivery Method Room Air 12/25/23 09:41 Temperature 97.9 F 12/25/23 09:41 Pulse Rate 63 12/25/23 09:41 Respiratory Rate 18 12/25/23 09:41 Blood Pressure 155/85 H 12/25/23 09:41 Pulse Oximetry 100 12/25/23 09:41 Oxygen Delivery Method Room Air 12/25/23 09:41 Airway Mallampati Class: I Neck ROM: Full Loose/Missing/Broken Teeth: Yes (edentulous top jaw) Heart: S1S2 Lungs: CTAB Assessment and Plan Assessment Anesthesia Assessment: Anesthesia Plan Discussed and Chart Reviewed Final Anesthetic Review Family History of Problems with Anesthesia: No History of Problems with Anesthesia: No NPO: Yes ASA Class: II Final Preanesthetic Review: No Changes in Pt Med Stat, Meds/Allgs Chart Reviewed, Consent Obtained/Reviewed (olive knocker at bedside for translation) and Anes Risks/Benef Reviewed Patient Risk: Low Procedure Risk: Low Anesthetic Plan Anesthetic Plan: MAC: and Agree w/ Assess. and Plan Disposition: Standard PACU
--- NOTE | 2023-12-25 10:22 | P.OP_ITS ---
Operative Note Operative Note Date of Service: 12/25/23 Narrative: Operative Information Procedure Description: Colonoscopy Indication: screening Anesthesia: MAC COLONOSCOPY Instrument: Olympus variable stiffness pediatric scope 190L Colonoscopy Monitoring: Vital signs and clinical assessment, continuous EKG monitoring, Pulse oximetry, Carbon Dioxide monitoring and blood pressure monitoring were done throughout the procedure. Colon withdrawal time was 15 minutes. Procedure: The patient was placed in the left lateral decubitis position and pre-procedure medications were administered. After a digital rectal examination of the ano-rectum, the video colonoscope was inserted into the rectum and advanced through the colon to the cecum/TI. The colonoscope was slowly withdrawn in a retrograde panoramic fashion and the colon mucosa was carefully examined including a retroflexed view of the rectum. Findings and interventions are described below. Procedure Difficulty: moderate due to looping Findings: Terminal Ileum-not intubated Cecum: flat polyp 6-8 mm lifted with eleview injection and removed with cold snare, x1 clip applied for hemostasis Ascending Colon: normal Transverse Colon -normal Descending Colon: 6-8 mm sessile polyp removed with cold forceps Sigmoid Colon: normal Rectum: Retroflexion with medium sized internal hemorrhoids seen, grade I, 6-8 mm sessile polyp removed with cold snare Anorectum - normal Intervention: cold snare, eleview and EMr, cold forceps Colon preparation: [place] Bowel Preparation Scale Right colon; 3 Transverse colon: 2 Left colon; 2 (0 = Unprepared colon segment with mucosa not seen due to solid stool that c annot be cleared. 1 = Portion of mucosa of the colon segment seen, but other areas of the colon segment not well seen due to staining, residual stool and/or opaque liquid. 2 = Minor amount of residual staining, small fragments of stool and/or opaque liquid, but mucosa of colon segment seen well. 3 = Entire mucosa of colon segment seen well with no residual staining, small fragments of stool or opaque liquid) Impression and Post Procedure Diagnosis: diverticulosis colon polyps internal hemorrhoids Plan: High fiber diet leaflet Avoid straining at stool, epsom salts and sitz bath, anusol supps or cream Repeat Colonoscopy in 5 years or earlier if clinically indicated Above findings were reviewed with the patient and relevant handouts were provided if indicated.
--- NOTE | 2023-12-25 10:22 | MHC.SHP ---
Pre-Procedural Eval Section A - 24 Hr Update-Section A only Date of Service: 12/25/23 Section B - Complete if H&P > 30 days Chief Complaint: Encounter for screening for malignant neoplasm of Relevant Family History (Specify if Yes): No Relevant Social History: Tobacco Use Present Medications: see Short Stay Collaborative assessment Medical History: Significant History (Seronegative rheumatoid arthritis Positive TB test Encounter before starting medication Smoker unmotivated to quit Inflammatory arthritis Bilateral hand swelling Joint pain in both hands High blood cholesterol HTN (hypertension)) History of Previous Operations: Relevant previous surgery/procedure and date(s) (Hx of esophagogastroduodenoscopy Hx of colonoscopy) Allergies: Allergies Allergy/AdvReac Type Severity Reaction Status Date / Time No Known Allergies Allergy Mild Verified 12/25/23 09:44 Review of Systems Sugical H&P ROS: Negative: Constitution, Cardiovascular, Respiratory, Neurological, Psychiatric, Hem-Onc, Allergic/Immunologic, Gastrointestinal, Genitourinary, Musculoskeletal, Integumentary, Endocrine and Eyes/Ears/Nose/Throat Exam Surgical H&P Exam: Normal: HEENT, Normal: Heart, Normal: Lungs, Normal: Extremities, Normal: Abdomen, Normal: Skin and Normal: Neurological Plan Diagnosis/Plan: Unchanged I have reviewed the history and physical and performed a pertinent physical examination on my patient. No changes have occurred unless specified. Time Spent With Patient Time: Total time managing care of this patient today ____ minutes.
[2023-12-25 10:58] VITALS: BP 100/64; PULSE 68; RESP 16; TEMP 36.4; O2SAT 97
[2023-12-25 11:13] VITALS: BP 144/91; PULSE 64; RESP 18; O2SAT 99
[2023-12-25 11:28] VITALS: BP 168/89; PULSE 57; RESP 18; O2SAT 99
[2023-12-25 11:43] VITALS: BP 168/92; PULSE 60; RESP 18; TEMP 36.6; O2SAT 99
== END 2023-12-25 12:18 | disposition home or self-care (01) ==
PROVIDERS: PCP Internal Medicine; Visit Provider Internal Medicine Gastroenterology
PROC: 0DJD8ZZ Inspection of Lower Intestinal Tract, Via Natural or Artificial Opening Endoscopic (ICD-10-PCS; CPT 45378; principal; 2023-12-25 10:30)
DX: Z12.11 Encounter for screening for malignant neoplasm of colon (principal); D12.8 Benign neoplasm of rectum; K63.5 Polyp of colon; K64.0 First degree hemorrhoids; M06.00 Rheumatoid arthritis without rheumatoid factor, unspecified site; I10 Essential (primary) hypertension; E78.00 Pure hypercholesterolemia, unspecified; R76.11 Nonspecific reaction to tuberculin skin test without active tuberculosis; Z79.899 Other long term (current) drug therapy; F17.210 Nicotine dependence, cigarettes, uncomplicated
CPT/HCPCS: 45385; 45380; 45381; 88305; J2003; J2704

== ENCOUNTER → 2023-12-25 07:24 | Outpatient (BNV) | payer OTHER, SELFPAY | PROVIDERS: PCP Internal Medicine; Visit Provider Internal Medicine Gastroenterology | DX: Z12.11 Encounter for screening for malignant neoplasm of colon (principal); D12.8 Benign neoplasm of rectum; K63.5 Polyp of colon | CPT/HCPCS: 45380; 45381; 45385 ==

== ENCOUNTER 2023-12-31 14:00 | Outpatient (AMB) | payer OTHER, SELFPAY ==
--- NOTE | 2023-12-31 14:03 | MHC.OFFVIS ---
Vital Signs 12/31/23 14:06 Height 5 ft 3 in Weight 118 lb BMI 20.9 Pulse 57 Pulse Source Pulse Oximeter Temp 98.9 F Temp Source Oral Intake Visit Reasons: per Dr.J Rendon spot test done/workload Electrician'S Assistant Required: Yes Electrician'S Assistant Services: Electrician'S Assistant Present Electrician'S Assistant Name: Ashlyn Amador CMA Information Interpreted: clinical only Sales And Production Manager: Sales And Production Manager Present Allergies No Known Allergies Allergy (Mild, Verified 12/31/23 14:11) HPI HPI per Dr.J Rendon spot test done/workload: Details: She has repeat TB test positive Tspot. She has no symptoms and negative CXR. [facility] Medical History Seronegative rheumatoid arthritis Positive TB test Encounter before starting medication Smoker unmotivated to quit Inflammatory arthritis Bilateral hand swelling Joint pain in both hands High blood cholesterol HTN (hypertension) Surgical History Hx of esophagogastroduodenoscopy Hx of colonoscopy Social History Household Members Other:: lives alone Are you a primary care provider to a significant other at home: No Do you presently have visiting nurse or other home services: No Alcohol intake: current Alcohol intake frequency: holidays/special occasions only Alcohol type: beer Patient Tobacco Use Status: Current everyday Tobacco user Cigarette Packs Per Day: 1 Substance Use Type: Marijuana Review of Systems Const All systems reviewed & are unremarkable except as noted in HPI and below Physical Exam Vital Signs: Last Vital Signs Temp 98.9 F 12/31/23 14:06 Pulse 57 12/31/23 14:06 BMI result Body Mass Index 20.9 Const General: cooperative Orientation/consciousness: patient oriented x3 HEENT Head: Yes normal to inspection Mouth: Normal oral and palatal mucosa present Eyes General: appearance normal, both eyes and all related structures Pupils: Equal, round and reactive pupils present Resp Effort & Inspection: normal respiratory effort Cardio Rate: regular rate Rhythm: regular rhythm GI Palpation (GI): Soft to palpation and nontender General: Yes no CVA tenderness Back/Spine/Pelvis Back: no CVA tenderness Skin General skin exam: no rashes or lesions noted Neuro General: patient oriented x3 Cranial nerves: Yes CN's II-XII intact bilaterally and Yes Equal, round and reactive pupils present Extrem General: Yes normal to inspection Psych Appearance: grossly normal Assessment & Plan Assessment & Plan (1) Seronegative rheumatoid arthritis: Comment: She has positive TB,latent Code(s): M06.00 - Rheumatoid arthritis without rheumatoid factor, unspecified site Category: Medical Plan: Six months INH and B6. See in one month and check tolerability and check LFTs. (2) Positive TB test: Code(s): R76.11 - Nonspecific reaction to tuberculin skin test without active tuberculosis Category: Medical Plan: na Medications: New isoniazid 300 mg PO DAILY 30 tabs 5RF 30 days pyridoxine (vitamin B6) 50 mg PO DAILY 30 tabs 5RF 30 days Coding Level of Care Code Est Pt Level 3 (90860) Diagnoses Seronegative rheumatoid arthritis M06.00 Positive TB test R76.11
[2023-12-31 14:06] VITALS: PULSE 57; TEMP 37.2; BMI 20.9
== END 2023-12-31 14:35 | disposition home or self-care (01) ==
LOC: HO.HID 14:00
PROVIDERS: PCP Internal Medicine; Visit Provider Internal Medicine
DX: M06.00 Rheumatoid arthritis without rheumatoid factor, unspecified site (principal); R76.11 Nonspecific reaction to tuberculin skin test without active tuberculosis
CPT/HCPCS: 99213

== ENCOUNTER → 2023-12-31 14:00 | Outpatient (BNVA) | payer OTHER, SELFPAY | PROVIDERS: PCP Internal Medicine; Visit Provider Internal Medicine | DX: M06.00 Rheumatoid arthritis without rheumatoid factor, unspecified site (principal); R76.11 Nonspecific reaction to tuberculin skin test without active tuberculosis | CPT/HCPCS: 99212 ==

== ENCOUNTER 2024-02-13 13:58 | Outpatient (AMB) | payer OTHER, SELFPAY ==
--- NOTE | 2024-02-13 14:54 | MHC.OFFVIS ---
Vital Signs 02/13/24 14:55 Height 5 ft 3 in Weight 115 lb BMI 20.4 Pulse 51 Pulse Source Pulse Oximeter Pulse Oximetry (%) 99 Oxygen Delivery Method Room Air Intake Visit Reasons: 1 month med follow up TB Allergies No Known Allergies Allergy (Mild, Verified 02/13/24 15:19) HPI HPI 1 month med follow up TB: Details: She is tolerating latent TB treatment. [facility] Medical History Seronegative rheumatoid arthritis Positive TB test Encounter before starting medication Smoker unmotivated to quit Inflammatory arthritis Bilateral hand swelling Joint pain in both hands High blood cholesterol HTN (hypertension) Surgical History Hx of esophagogastroduodenoscopy Hx of colonoscopy Social History Household Members Other:: lives alone Are you a primary auto care center manager to a significant other at home: No Do you presently have visiting nurse or other home services: No Alcohol intake: current Alcohol intake frequency: holidays/special occasions only Alcohol type: beer Patient Tobacco Use Status: Current everyday Tobacco user Cigarette Packs Per Day: 1 Substance Use Type: Marijuana Review of Systems Const All systems reviewed & are unremarkable except as noted in HPI and below Physical Exam Vital Signs: Last Vital Signs Pulse 51 02/13/24 14:55 Pulse Ox 99 02/13/24 14:55 Oxygen Delivery Method Room Air 02/13/24 14:55 BMI result Body Mass Index 20.4 Const General: cooperative Orientation/consciousness: patient oriented x3 HEENT Head: Yes normal to inspection Mouth: Normal oral and palatal mucosa present Eyes General: appearance normal, both eyes and all related structures Pupils: Equal, round and reactive pupils present Resp Effort & Inspection: normal respiratory effort Cardio Rate: regular rate Rhythm: regular rhythm GI Palpation (GI): Soft to palpation and nontender General: Yes no CVA tenderness Back/Spine/Pelvis Back: no CVA tenderness Skin General skin exam: no rashes or lesions noted Neuro General: patient oriented x3 Cranial nerves: Yes CN's II-XII intact bilaterally and Yes Equal, round and reactive pupils present Extrem General: Yes normal to inspection Psych Appearance: grossly normal Assessment & Plan Assessment & Plan (1) Positive TB test: Comment: Continue six months TB treatment. Code(s): R76.11 - Nonspecific reaction to tuberculin skin test without active tuberculosis Category: Medical Plan: n/a (2) Seronegative rheumatoid arthritis: Comment: She has positive TB,latent Code(s): M06.00 - Rheumatoid arthritis without rheumatoid factor, unspecified site Category: Medical Plan: n/a Coding Level of Care Code Est Pt Level 3 (23791) Diagnoses Positive TB test R76.11 Seronegative rheumatoid arthritis M06.00
[2024-02-13 14:55] VITALS: PULSE 51; O2SAT 99; BMI 20.4
== END 2024-02-13 15:05 | disposition home or self-care (01) ==
LOC: HO.HID 13:58
PROVIDERS: PCP Internal Medicine; Visit Provider Internal Medicine
DX: R76.11 Nonspecific reaction to tuberculin skin test without active tuberculosis (principal); M06.00 Rheumatoid arthritis without rheumatoid factor, unspecified site
CPT/HCPCS: 99213

== ENCOUNTER → 2024-02-13 13:58 | Outpatient (BNVA) | payer OTHER, SELFPAY | PROVIDERS: PCP Internal Medicine; Visit Provider Internal Medicine | DX: R76.11 Nonspecific reaction to tuberculin skin test without active tuberculosis (principal); M06.00 Rheumatoid arthritis without rheumatoid factor, unspecified site | CPT/HCPCS: 99212 ==

== ENCOUNTER 2024-03-14 07:51 | Outpatient (AMB) | payer OTHER, SELFPAY ==
[2024-03-14 08:03] VITALS: BP 130/76; PULSE 57; O2SAT 97; BMI 20.1
--- NOTE | 2024-03-14 08:03 | A.OFFVIS_ITS ---
Vital Signs 03/14/24 08:03 Height 5 ft 3 in Weight 113 lb 8.609 oz BMI 20.1 BP 130/76 Blood Pressure Location Lt brachial Position Sitting Pulse 57 Pulse Source Pulse Oximeter Pulse Oximetry (%) 97 Oxygen Delivery Method Room Air Intake Visit Reasons: RA Intake Note: Patient last seen by Loretta Aguilar on 08/02/23. Presents today for RA follow up. Senior Sales Compensation Analyst Required: Yes Senior Sales Compensation Analyst Name: [id number] [facility] Allergies No Known Allergies Allergy (Mild, Verified 03/14/24 08:06) Medication List - Last Reconciled 03/14/24 by Madyson Acevedo MD aripiprazole 5 mg PO DAILY calcium carbonate-vitamin D3 500 mg-5 mcg (200 unit) (Oyster Shell Calcium- Vitamin D3) 1 tab PO BID citalopram 20 mg PO DAILY hydrochlorothiazide 25 mg PO DAILY ipratropium-albuterol 20-100 mcg/actuation (Combivent Respimat) inhalation isoniazid 300 mg PO DAILY 30 days losartan 100 mg PO DAILY metoprolol tartrate 25 mg PO BID pravastatin 40 mg PO DAILY pyridoxine (vitamin B6) 50 mg PO DAILY 30 days zolpidem 5 mg PO BEDTIME PRN HPI Comments Details: Patient is a 68-year-old female with hypertension, hyperlipidemia and latent TB who is here today for follow up of seronegative rheumatoid arthritis Interval History: Patient last seen 08/02/2023 with Loretta Aguilar. At that time she was started on a prednisone taper for inflammatory arthritis. DMARDs were held because of a positive TB test. Patient has been following up with Infectious Disease since August 2023. Currently on isoniazid and vitamin B6 (since 01/2024) Today, Patient reports pain and swelling to her bilateral hands and sometimes her wrists Also with some left shoulder pain. Finished the prednisone and this helped Rheumatologic History: Establish care 06/2023 for the treatment of inflammatory arthritis. Serologies were overall negative however she had evidence of synovitis on examination. Lab work revealed positive TB test and she was started on latency TB treatment (chest x-ray was normal) 01/2024. Current Rheumatology Medication(s): [facility] Medical History Seronegative rheumatoid arthritis Positive TB test Encounter before starting medication Smoker unmotivated to quit Inflammatory arthritis Bilateral hand swelling Joint pain in both hands High blood cholesterol HTN (hypertension) Surgical History Hx of esophagogastroduodenoscopy Hx of colonoscopy Social History Household Members Other:: lives alone Are you a primary career developer to a significant other at home: No Do you presently have visiting nurse or other home services: No Alcohol intake: current Alcohol intake frequency: holidays/special occasions only Alcohol type: beer Patient Tobacco Use Status: Current everyday Tobacco user Cigarette Packs Per Day: 1 Substance Use Type: Marijuana Review of Systems Const Details: Review of Systems Constitutional: Denies fever, chills, weight loss ENT: Denies vision changes, eye pain or eye redness, dental caries, dry mouth GI: Denies nausea, vomiting, diarrhea, abdominal pain, change in BM Pulm: Denies SOB, ABEBE, hemoptysis, wheezing Cards: Denies chest pain, palpitations Skin: Denies Raynaud's, rash, nail changes, photosensitivity, EMPLOYEE BENEFITS DIRECTOR: Denies headaches, weakness, paresthesias, recurrent falls MSK: as per HPI All other systems reviewed and are unremarkable except noted above Physical Exam Vital Signs: Last Vital Signs Pulse 57 03/14/24 08:03 BP 130/76 03/14/24 08:03 Pulse Ox 97 03/14/24 08:03 Oxygen Delivery Method Room Air 03/14/24 08:03 BMI result Body Mass Index 20.1 Physical Examination CONSTITUITIONAL Patient alert and cooperative. Well appearing and in no apparent painful distress HEENT Conjunctiva and sclera clear. ?Pupils equal round and reactive to light. ?No lymphadenopathy. ? CHEST/RESPIRATORY SYSTEM Normal respiratory effort and able to speak in complete sentences. ?Clear to auscultation bilaterally. ?No crackles, rales, rhonchi, wheezes heard. CARDIAC SYSTEM Regular rate and rhythm. ?S1 and S2 heard no murmurs. ?Radial pulses intact bilaterally MSK Hands: ?Makes a weak fist. Reducible ulnar deviation. swelling to the right 2nd and 3rd MCP and PIPs; as well as left 2nd MCP. Scattered Herbedens nodes Wrists: ?Full range of motion at the wrists without pain. ?No tenderness to palpation or synovitis noted to the wrists. Elbows: Full range of motion without pain. No tenderness, weakness, swelling, increased warmth or erythema. Shoulders: Full active range of motion without pain. No tenderness, weakness, swelling, increased warmth or erythema. Knees: ?Full range of motion. ?No tenderness, swelling, increased warmth or erythema.?Faint crepitations palpated Ankles: Full range of motion. ?No tenderness, swelling, increased warmth or erythema.? Feet: ?Negative squeeze test. ?No tenderness to palpation or swelling of the MTPs. Tender points:?No tenderness to palpation of the bilateral trapezius, supraspinatus, greater trochanters, anterior costochondral junctions, bilateral gluteal areas, bilateral suboccipital muscle insertions SKIN Skin intact without rashes. Normal nailfold capilloroscopy Results Reviewed Results Reviewed: Laboratory Tests 11/26/18 07/18/23 07/18/23 09:05 09:20 10:01 WBC RBC Hgb Hct Plt Count ESR 10 Sodium Potassium Chloride Carbon Dioxide BUN Creatinine C-Reactive Protein 0.30 25-OH Vitamin D Total Rheumatoid Factor < 13.0 Cycl Citrul Peptide IgG <16 PATRICK Screen POSITIVE A PATRICK Titer 1:80 H Sm (Cifuentes) Antibody <1.0 SmRNP Antibodies <1.0 SS-A/Ro Antibody <1.0 NEG SS-B/La Antibody <1.0 NEG Scl-70 Scleroderma Ab <1.0 NEG Double Strand DNA Ab <1 Centromere B Antibody <1.0 NEG Complement C3 100 Complement C4 11/14/23 12/04/23 12/19/23 17:25 09:36 09:22 WBC 7.9 RBC 4.02 L Hgb 13.8 Hct 37.5 Plt Count 326 ESR Sodium 131 L Potassium 4.7 Chloride 97 Carbon Dioxide 23 BUN 22 H Creatinine 0.93 C-Reactive Protein 25-OH Vitamin D Total 46.2 Rheumatoid Factor Cycl Citrul Peptide IgG PATRICK Screen PATRICK Titer Sm (Cifuentes) Antibody SmRNP Antibodies SS-A/Ro Antibody SS-B/La Antibody Scl-70 Scleroderma Ab Double Strand DNA Ab Centromere B Antibody Complement C3 Complement C4 XR Bilateral Hands 07/24/23 FINDINGS: RIGHT HAND: The bones are diffusely demineralized. Redemonstration of volar subluxation of the proximal phalanx of the second digit at the level of the MCP joint with degenerative changes which are better characterized on MRI. Degenerative changes in multiple small joints with joint space narrowing and tiny osteophytes. There appears to be subluxation at the level of the third MCP joint with associated degenerative changes as well. LEFT HAND: There is subluxation at the left third MCP joint. Bones are diffusely demineralized. Degenerative changes in multiple small joints. Assessment & Plan Assessment & Plan (1) Seronegative rheumatoid arthritis: Comment: Seronegative RA vs Undifferentiated CTD. Synovitis, reducible ulnar deviation (?Early RA vs Jaccouds arthropathy), Raynauds (normal capilloroscopy) Plaquenil 400mg daily 03/2024 Code(s): M06.00 - Rheumatoid arthritis without rheumatoid factor, unspecified site Category: Medical Plan: #Seronegative RA vs Undifferentiated CTD Patient is a 68-year-old female with inflammatory arthritis as evidenced by synovitis involving the MCPs. She has a ulnar deviation but this is reducible. This could be early RA or Jaccoud's arthropathy from lupus. Regardless she does warrant treatment. Because of her history of Raynaud's in addition to her synovitis I think I would like to start with Plaquenil, this will also be a good start given she is currently being treated for latent TB. If this is not enough I will add methotrexate to this. Re sending lupus lab work Plan - Plaquenil 200mg bid daily for the next 3 months with plan to decrease to one tablet daily M-F and 2 tablets Sat and Sun - Opthalmology referral - CBC, CMP, ESR, CRP, PATRICK, GRICEL, C3, C4, dsDNA, APS labs, UA, UPC, SSA/SSB, Scleroderma panel - RTC 3 months (2) Long-term use of Plaquenil: Code(s): Z79.899 - Other joint terminal attack controller (current) drug therapy Category: Medical Plan: #Long-term Use of Hydroxychloroquine Discussed with patient the risks and benefits of hydroxychloroquine in managing the rheumatic condition Benefits include: - Reduced pain, reduce mortality, maintenance of remission and reduction of flares Risks include: - GI upset, skin hyperpigmentation, retinal toxicity (especially after more than 5 years of use), myopathy Advised yearly ophthalmology visits Orders: Orders PATRICK Reflex Titer and Pattern Today M19.90 - Unspecified osteoarthritis, unspecified site, R76.8 - Other specified abnormal immunological findings in serum, Z79.899 - Other prison (current) drug therapy Complement C4 Today - Unspecified osteoarthritis, unspecified site, R76.8 - Other specified abnormal immunological findings in serum, Z79.899 - Other prison (current) drug therapy Complete Blood Count Auto Diff Today - Unspecified osteoarthritis, unspecified site, R76.8 - Other specified abnormal immunological findings in serum, Z79.899 - Other prison (current) drug therapy Comprehensive Met. Panel Today - Unspecified osteoarthritis, unspecified site, R76.8 - Other specified abnormal immunological findings in serum, Z79.899 - Other prison (current) drug therapy C Reactive Protein Today - Unspecified osteoarthritis, unspecified site, R76.8 - Other specified abnormal immunological findings in serum, Z79.899 - Other joint terminal attack controller (current) drug therapy Erythrocyte Sedimentation Rate Today - Unspecified osteoarthritis, unspecified site, R76.8 - Other specified abnormal immunological findings in serum, Z79.899 - Other prison (current) drug therapy UA w Microscopic Today - Unspecified osteoarthritis, unspecified site, R76.8 - Other specified abnormal immunological findings in serum, Z79.899 - Other joint terminal attack controller (current) drug therapy Protein Creatinine Ratio, Ur Today - Unspecified osteoarthritis, unspecified site, R76.8 - Other specified abnormal immunological findings in serum, Z79.899 - Other prison (current) drug therapy Cardiolipin Antibodies Today - Unspecified osteoarthritis, unspecified site, R76.8 - Other specified abnormal immunological findings in serum, Z79.899 - Other prison (current) drug therapy Anti DNA DS Antibody Today - Unspecified osteoarthritis, unspecified site, R76.8 - Other specified abnormal immunological findings in serum, Z79.899 - Other prison (current) drug therapy Anti Extractable Nuclear Ag Today - Unspecified osteoarthritis, unspecified site, R76.8 - Other specified abnormal immunological findings in serum, Z79.899 - Other joint terminal attack controller (current) drug therapy Complement C3 Today - Unspecified osteoarthritis, unspecified site, R76.8 - Other specified abnormal immunological findings in serum, Z79.899 - Other joint terminal attack controller (current) drug therapy Sjogren's Antibodies Today M19.90 - Unspecified osteoarthritis, unspecified s ite, R76.8 - Other specified abnormal immunological findings in serum, Z79.899 - Other prison (current) drug therapy Scleroderma 70 Antibody Today M19.90 - Unspecified osteoarthritis, unspecified site, R76.8 - Other specified abnormal immunological findings in serum, Z79.899 - Other joint terminal attack controller (current) drug therapy Beta-2 Glycoprotein Antibody Today M19.90 - Unspecified osteoarthritis, unspecified site, R76.8 - Other specified abnormal immunological findings in serum, Z79.899 - Other joint terminal attack controller (current) drug therapy Lupus Anticoagulant Panel Today M1.90 - Unspecified osteoarthritis, unspecified site, R76.8 - Other specified abnormal immunological findings in serum, Z79.899 - Other prison (current) drug therapy Referrals Ophthalmology Referral Z79.89 - Other prison (current) drug therapy Medications: New hydroxychloroquine (Plaquenil) 200 mg PO BID 90 days 180 tabs 1RF M06.00 - Rheumatoid arthritis without rheumatoid factor, unspecified site Coding Level of Care Code Est Pt Level 4 (28871) Complex EM visit Add On G2211 Diagnoses Seronegative rheumatoid arthritis M06.00 Long-term use of Plaquenil Z79.897
== END 2024-03-14 08:44 | disposition home or self-care (01) ==
PROVIDERS: PCP Internal Medicine; Visit Provider Student in an Organized Health Care Education/Training Program
DX: M06.00 Rheumatoid arthritis without rheumatoid factor, unspecified site (principal); Z79.899 Other long term (current) drug therapy
CPT/HCPCS: 99214; G2211

== ENCOUNTER → 2024-03-14 07:51 | Outpatient (BNVA) | payer OTHER, SELFPAY | PROVIDERS: PCP Internal Medicine; Visit Provider Student in an Organized Health Care Education/Training Program | DX: M06.00 Rheumatoid arthritis without rheumatoid factor, unspecified site (principal); Z79.899 Other long term (current) drug therapy | CPT/HCPCS: 99212 ==

== ENCOUNTER 2024-04-11 09:58 | Outpatient (REF) | payer OTHER, SELFPAY | END 2024-04-11 09:59 | disposition home or self-care (01) | LOC: HO.LNP 09:58 | PROVIDERS: PCP Internal Medicine; Visit Provider Obstetrics & Gynecology | DX: N87.1 Moderate cervical dysplasia (principal); N87.0 Mild cervical dysplasia; R87.810 Cervical high risk human papillomavirus (HPV) DNA test positive | CPT/HCPCS: 57454; 88305; 88341; 88342; 88360 ==

== ENCOUNTER → 2024-04-11 09:58 | Outpatient (AMB) | payer OTHER, SELFPAY | END | disposition home or self-care (01) | PROVIDERS: PCP Internal Medicine; Visit Provider Obstetrics & Gynecology | CPT/HCPCS: 57454 ==

== ENCOUNTER 2024-04-15 09:42 | Outpatient (REF) | payer OTHER, SELFPAY ==
--- NOTE | ~2024-04-15 | MM_ITS ---
EXAMINATION: MM DIAGNOSTIC DIGITAL BREAST TOMOSYNTHESIS, BILATERAL CLINICAL INFORMATION: 6 month follow-up for grouped calcifications in the upper outer left breast posterior depth. COMPARISON: Mammography: Comparison is made with relevant prior exams. TECHNIQUE: Digital breast mammography with tomosynthesis is performed in both the craniocaudal and mediolateral oblique views along with computer-aided detection (CAD). FINDINGS: The breasts are heterogeneously dense, which may obscure small masses (ACR BI-RADS breast composition Category c). Left: post surgical changes are stable. Previously seen grouped punctate and coarse heterogeneous calcifications in the upper outer breast posterior depth are not significantly changed from prior magnification views 6 months ago. No suspicious masses or other abnormal findings. Right: No suspicious masses calcifications or other abnormal findings. Results are provided to the patient at time of visit by the technologist. MM/MM tomosynthesis diagnostic BI IMPRESSION: Left: Grouped altercations in the upper outer quadrant are not significantly changed from prior magnification views. Recommend 6 month follow-up for further evaluation of stability. Probably benign. Right: Negative. ASSESSMENT: BI-RADS BI-RADS 3 - Probably benign finding(s) - 6 month follow-up suggested RECOMMENDATION: 6 Month F/U This patient's information was entered into a reminder system with a target due date for their next mammogram. Electronically signed by: Elda Graham DO 04/15/2024 10:41 AM [facility]
== END 2024-04-15 09:43 | disposition home or self-care (01) ==
LOC: HO.MAMMO 09:42
PROVIDERS: PCP Internal Medicine; Visit Provider Internal Medicine
DX: R92.1 Mammographic calcification found on diagnostic imaging of breast (principal)
CPT/HCPCS: 77062; 77066

== ENCOUNTER → 2024-04-15 10:00 | Outpatient (BNV) | payer OTHER, SELFPAY | PROVIDERS: PCP Internal Medicine; Visit Provider Internal Medicine | DX: R92.1 Mammographic calcification found on diagnostic imaging of breast (principal) | CPT/HCPCS: 77066; G0279 ==

== ENCOUNTER 2024-04-23 11:13 | Outpatient (AMB) | payer OTHER, SELFPAY ==
[2024-04-23 11:33] VITALS: BP 114/70
--- NOTE | 2024-04-23 11:33 | MHC.OFFVIS ---
Vital Signs 04/23/24 11:33 Height 5 ft 3 in Weight 113 lb BMI 20.0 BP 114/70 Intake Visit Reasons: Colpo results/Ok per lázaro Etiologist Required: Yes Etiologist Language: [place] Irish Information Interpreted: non-clinical & clinical Accompanied by: Self / Same As Patient Allergies No Known Allergies Allergy (Mild, Verified 04/23/24 11:39) Post menopausal: Yes Do you need a note to return to daycare/school/sports/work: Yes (for surgery on sunday) HPI Comments Details: Presenting post colpo for follow-up. The patient is doing well with no complaints. The pathology showed the following: A. Endocervix, curettage: High grade squamous intraepithelial lesion (AZALIA 2). B. Cervix, 1 o'clock, biopsy: High grade squamous intraepithelial lesion (AZALIA 2). C. Cervix, 4 o'clock, biopsy: Acute and chronic cervicitis with reactive epithelial changes; negative for squamous intraepithelial lesion. D. Cervix, 6 o'clock, biopsy: Fragments of inflamed endocervical glands, negative for squamous intraepithelial lesion. E. Cervix, 7 o'clock, biopsy: Low grade squamous intraepithelial lesion (AZALIA 1). F. Cervix, 11 o'clock, biopsy: Fragments of squamous mucosa within normal limits; negative for squamous intraepithelial lesion. G. Cervix, 12 o'clock, biopsy: Low grade squamous intraepithelial lesion (AZALIA 1). COMMENT: Note is made of the patient's history of an abnormal pap (ASCUS; HPV+) that correlates with the above findings PFSH Medical History Long-term use of Plaquenil Seronegative rheumatoid arthritis Positive TB test Encounter before starting medication Smoker unmotivated to quit Inflammatory arthritis Bilateral hand swelling Joint pain in both hands High blood cholesterol HTN (hypertension) Surgical History Hx of esophagogastroduodenoscopy Hx of colonoscopy Social History Household Members Other:: lives alone Are you a primary administrator health care facility to a significant other at home: No Do you presently have visiting nurse or other home services: No Alcohol intake: current Alcohol intake frequency: holidays/special occasions only Alcohol type: beer Patient Tobacco Use Status: Current everyday Tobacco user Cigarette Packs Per Day: 1 Substance Use Type: Marijuana Patient : No Female Reproductive History Menstrual Date of last menstrual period: 01/01/20 Total pregnancies: 2 Full term: 2 Review of Systems Card Reports as per HPI and Reports no additional complaints Resp Reports as per HPI and Reports no additional complaints GI Reports as per HPI and Reports no additional complaints Reports as per HPI Physical Exam Vital Signs: Last Vital Signs BP 114/70 04/23/24 11:33 BMI result Body Mass Index 20.0 Const General: cooperative, healthy appearing and comfortable Resp Effort & Inspection: normal respiratory effort Auscultation: clear to auscultation bilaterally Percussion: percussion normal Cardio Palpation: normal PMI Rate: regular rate Rhythm: regular rhythm Heart sounds: no murmurs and no rubs Peripheral pulses: Peripheral pulses 2+ throughout GI Inspection: Yes normal to inspection Palpation (GI): Soft to palpation, nontender, no guarding, not rigid and No hepatosplenomegaly present Percussion: Yes normal to percussion Auscultation: normal bowel sounds Rectal Exam - Female: deferred Assessment & Plan Assessment & Plan (1) AZALIA II (cervical intraepithelial neoplasia II): Code(s): N87.1 - Moderate cervical dysplasia Category: Medical Plan: Discussed with the patient the pathology results of the colposcopy biopsies & endocervical curettage ( moderate dysplasia-AZALIA 2). Discussed with the patient the sensitivity specificity, positive and negative predictive value in detecting cervical cancer in addition discussed the regression, persistence and progression rates. Addition discussed with the patient the risk of progression to cancer and impact of excision procedure on her future . Per ASCCP guidelines, 2 options of management were discussed with the patient including either observation with HPV based screening and colposcopy biopsy at 6 months and 12 months versus a diagnostic excisional procedures, which is the preferred method of management. The patient is concerned more about the progression of AZALIA 2 to cancer than the excisional procedure impact on her future and she decided to proceed with a LEEP, possible cone with post cone ECC. Will proceed with LEEP cone was post cone ECC. Discussed with the patient the procedure, its benefits and risks including bleeding, infection, possible need for blood transfusion with all its risk ( HIV, syphilis, Hepatitis, anaphylaxis shock, others..), injury to bladder, rectum, possible re-excision for positive margins, potential need for hysterectomy, possible positive margin necessitating re-excision. Also discussed the patient options of anesthesia either paracervical block versus IV sedation/MAC, prefers to proceed with IV sedation/MAC. All questions answered, the patient verbalized understanding and signed the consent. Coding Level of Care Code Est Pt Level 3 (05420) Diagnoses AZALIA II (cervical intraepithelial neoplasia II) N87.1
== END 2024-04-23 12:04 | disposition home or self-care (01) ==
LOC: HO.HWS 11:13
PROVIDERS: PCP Internal Medicine; Visit Provider Obstetrics & Gynecology
DX: N87.1 Moderate cervical dysplasia (principal)
CPT/HCPCS: 99213

== ENCOUNTER → 2024-04-23 11:13 | Outpatient (BNVA) | payer OTHER, SELFPAY | PROVIDERS: PCP Internal Medicine; Visit Provider Obstetrics & Gynecology | DX: N87.1 Moderate cervical dysplasia (principal) | CPT/HCPCS: 99212 ==

== ENCOUNTER 2024-05-02 05:57 | Day surgery (SDC) | payer OTHER, SELFPAY ==
[2024-05-02] VITALS (9 sets, daily range): BP systolic 87–166; BP diastolic 49–89; PULSE 49–55; RESP 11–16; TEMP 36.1–36.5; O2SAT 95–100; BMI 20.4
[2024-05-02] MEDS: Lactated Ringers 1,000 ML 100 ML IVCONT (06:59)
--- NOTE | 2024-05-02 07:00 | P.CONAN_ITS ---
Documented by User: Cailtin Ortega NP 04/30/24 14:22 HPI - Anesthesia Eval Consult details Narrative: 68yo F for LEEP,poss loop electric excision,poss loop electrical,cone and post endocervical curettage s/p colonoscopy 12/2023 with MAC PMFSH Active Problems Active Problems: All Active Problems AZALIA II (cervical intraepithelial neoplasia II) (Acute) ASCUS with positive high risk HPV cervical (Acute) Long-term use of Plaquenil (Acute) History of breast biopsy (Acute) Encounter for screening colonoscopy (Acute) COVID-19 (Acute) Seronegative rheumatoid arthritis (Acute) Positive TB test (Acute) Encounter before starting medication (Acute) Smoker unmotivated to quit (Acute) Inflammatory arthritis (Acute) Bilateral hand swelling (Acute) Joint pain in both hands (Acute) Past Medical History Medical History Long-term use of Plaquenil Seronegative rheumatoid arthritis Positive TB test Encounter before starting medication Smoker unmotivated to quit Inflammatory arthritis Bilateral hand swelling Joint pain in both hands High blood cholesterol HTN (hypertension) Family History Family history of problems with anesthesia: No Surgical History Surgical History Hx of esophagogastroduodenoscopy Hx of colonoscopy History of Problems with Anesthesia: No Social History Social History Household Members Other:: lives alone Are you a primary care information associate to a significant other at home: No Do you presently have visiting nurse or other home services: No Alcohol intake: current Alcohol intake frequency: holidays/special occasions only Alcohol type: beer Patient Tobacco Use Status: Current everyday Tobacco user Tobacco use type: Cigarette Cigarette Packs Per Day: 1 Cigarettes Per Day: 6 Second Hand Smoke Exposure: No Use of substances other than those prescribed or required for medical reasons: No Substance Use Type: Marijuana Have you been hit, kicked, punched, or otherwise hurt by someone within the past year? If so, by whom?: No Are you DNR?: No Advance Directives: No Advance Directives Information Provided: Yes Advance Directives on File: No Recently lost weight without trying: No Eating poorly because of decreased appetite: No Nutrition Risks: No Nutritional Risk Meds Allergies Allergy/AdvReac Type Severity Reaction Status Date / Time No Known Allergies Allergy Mild Verified 04/23/24 11:39 Home Medications ?Medication ?Instructions ?Recorded ?Confirmed ?Last Taken ?Type aripiprazole 5 mg tablet 5 mg PO DAILY 05/09/23 03/14/24 Unknown History calcium 500 mg (as 1 tab PO BID 05/09/23 03/14/24 Unknown History carbonate)-vitamin D3 5 mcg (200 unit) tablet (Oyster Shell Calcium-Vitamin D3) hydrochlorothiazide 25 mg tablet 25 mg PO DAILY 05/09/23 03/14/24 Unknown History losartan 100 mg tablet 100 mg PO DAILY 05/09/23 03/14/24 Unknown History metoprolol tartrate 25 mg tablet 25 mg PO BID 05/09/23 03/14/24 Unknown History pravastatin 40 mg tablet 40 mg PO DAILY 05/09/23 03/14/24 Unknown History zolpidem 5 mg tablet 5 mg PO BEDTIME PRN Insomnia 05/09/23 03/14/24 Unknown History citalopram 20 mg tablet 20 mg PO DAILY 06/13/23 03/14/24 Unknown History ipratropium 20 mcg-albuterol 100 inhalation 06/13/23 03/14/24 Unknown History mcg/actuation mist for inhalation (Combivent Respimat) Exam Narrative Narrative: EKG 2023 Vent. Rate : 053 BPM Atrial Rate : 053 BPM P-R Int : 154 ms QRS Dur : 080 ms QT Int : 438 ms P-R-T Axes : 065 032 052 degrees QTc Int : 410 ms Sinus bradycardia Otherwise normal ECG When compared with ECG of 19-OCT-2021 09:50, No significant change was found Assessment and Plan Assessment Anesthesia Assessment: Chart Reviewed Final Anesthetic Review Family History of Problems with Anesthesia: No History of Problems with Anesthesia: No Documented by User: Dolores Orellana DO 05/02/24 07:21 [facility] Past Medical History Medical History Long-term use of Plaquenil Seronegative rheumatoid arthritis Positive TB test Encounter before starting medication Smoker unmotivated to quit Inflammatory arthritis Bilateral hand swelling Joint pain in both hands High blood cholesterol HTN (hypertension) Family History Family history of problems with anesthesia: No Surgical History Surgical History Hx of esophagogastroduodenoscopy Hx of colonoscopy History of Problems with Anesthesia: No Social History Social History Household Members Other:: lives alone Are you a primary care information associate to a significant other at home: No Do you presently have visiting nurse or other home services: No Alcohol intake: current Alcohol intake frequency: holidays/special occasions only Alcohol type: beer Patient Tobacco Use Status: Current everyday Tobacco user Tobacco use type: Cigarette Cigarette Packs Per Day: 1 Cigarettes Per Day: 6 Second Hand Smoke Exposure: No Use of substances other than those prescribed or required for medical reasons: No Substance Use Type: Marijuana Have you been hit, kicked, punched, or otherwise hurt by someone within the past year? If so, by whom?: No Are you DNR?: No Advance Directives: No Advance Directives Information Provided: Yes Advance Directives on File: No Recently lost weight without trying: No Eating poorly because of decreased appetite: No Nutrition Risks: No Nutritional Risk Meds Allergies Allergy/AdvReac Type Severity Reaction Status Date / Time No Known Allergies Allergy Mild Verified 04/23/24 11:39 Home Medications ?Medication ?Instructions ?Recorded ?Confirmed ?Last Taken ?Type aripiprazole 5 mg tablet 5 mg PO DAILY 05/09/23 03/14/24 Unknown History calcium 500 mg (as 1 tab PO BID 05/09/23 03/14/24 Unknown History carbonate)-vitamin D3 5 mcg (200 unit) tablet (Oyster Shell Calcium-Vitamin D3) hydrochlorothiazide 25 mg tablet 25 mg PO DAILY 05/09/23 03/14/24 Unknown History losartan 100 mg tablet 100 mg PO DAILY 05/09/23 03/14/24 Unknown History metoprolol tartrate 25 mg tablet 25 mg PO BID 05/09/23 03/14/24 Unknown History pravastatin 40 mg tablet 40 mg PO DAILY 05/09/23 03/14/24 Unknown History zolpidem 5 mg tablet 5 mg PO BEDTIME PRN Insomnia 05/09/23 03/14/24 Unknown History citalopram 20 mg tablet 20 mg PO DAILY 06/13/23 03/14/24 Unknown History ipratropium 20 mcg-albuterol 100 inhalation 06/13/23 03/14/24 Unknown History mcg/actuation mist for inhalation (Combivent Respimat) Exam Exam Date and Time: 05/02/24 0700 Height,Weight and Vital Signs: Height 5 ft 3 in Weight 52.2 kg Vital Signs Temperature 97.7 F 05/02/24 06:58 Pulse Rate 50 05/02/24 06:58 Respiratory Rate 16 05/02/24 06:58 Blood Pressure 166/56 H 05/02/24 06:58 Pulse Oximetry 97 05/02/24 06:58 Oxygen Delivery Method Room Air 05/02/24 06:58 Temperature 97.7 F 05/02/24 06:58 Pulse Rate 50 05/02/24 06:58 Respiratory Rate 16 05/02/24 06:58 Blood Pressure 166/56 H 05/02/24 06:58 Pulse Oximetry 97 05/02/24 06:58 Oxygen Delivery Method Room Air 05/02/24 06:58 Airway Mallampati Class: II TM Dist: >3cm Neck ROM: Full Loose/Missing/Broken Teeth: Yes (edentulous top jaw, multiple missing teeth lower jaw) Heart: S1S2 Lungs: CTAB Assessment and Plan Assessment Anesthesia Assessment: Anesthesia Plan Discussed and Chart Reviewed Final Anesthetic Review Family History of Problems with Anesthesia: No History of Problems with Anesthesia: No NPO: Yes ASA Class: II Final Preanesthetic Review: No Changes in Pt Med Stat, Meds/Allgs Chart Reviewed, Consent Obtained/Reviewed (consented patient for both GA and MAC; final plan to be discussed with surgeon) and Anes Risks/Benef Reviewed Patient Risk: Low Procedure Risk: Low Anesthetic Plan Anesthetic Plan: GA, MAC: and Agree w/ Assess. and Plan Disposition: Standard PACU
--- NOTE | 2024-05-02 07:32 | MHC.SHP ---
Pre-Procedural Eval Section A - 24 Hr Update-Section A only Date of Service: 05/02/24 The patient is an INPATIENT: No Changes since office visit: No Cold of Flu in the past 2 weeks, No New Medical Problems, No Changes in Medication and No Patient answered all questions The patient has been examined within 24 hours of the surgical procedure. The History & Physical has been completed within 30 days and I have reviewed it.: Yes Section B - Complete if H&P > 30 days Chief Complaint: Moderate cervical dysplasia Allergies: Allergies Allergy/AdvReac Type Severity Reaction Status Date / Time No Known Allergies Allergy Mild Verified 04/23/24 11:39 Plan Diagnosis/Plan: Unchanged I have reviewed the history and physical and performed a pertinent physical examination on my patient. No changes have occurred unless specified. Time Spent With Patient Time: Total time managing care of this patient today ____ minutes.
--- NOTE | 2024-05-02 07:56 | P.BOP_ITS ---
Brief Operative Note Date of Service: 05/02/24 Pre-op diagnosis: AZALIA 2 with positive ECC Post-op diagnosis: same Procedure: LEEP CONE with post CONE ECC Surgeon: Niall Pearson MD Anesthesia: MAC and other (Paracervical block) Was an Fiber Locking Supervisor used for this Procedure?: No Estimated blood loss (mL): 0 Pathology: other (Cervical cone, endocervix, Post cone ECC) Condition: stable Disposition: other (Home)
--- NOTE | 2024-05-02 07:57 | W.PM.OPN ---
Operative Note Operative Note Date of Service: 02/13/20 Narrative: Pre op diagnosis: AZALIA 2 with positive ECC Operation: Colposcopy, Loop electrical excision procedure cone, endocervical excision, post cone ECC Postop diagnosis: the same Quantitative blood loss: 50 cc Surgeon: Niall Pearson MD, FACOG Product Marketing Analyst: None Pathology: Cervical cone, top-hat endo cervical excision, endo cervical curettage Complications: none Anesthesia: GLMA and Para cervical block Procedure: The patient was put in a dorsal lithotomy position, scrubbed and draped in the usual sterile fashion. A speculum was inserted inside the patient's vagina. The cervix is assessed using the colposcope with acetic acid , the lesions were seen, and at least 1 cm of the squamocolumnar junction was observed. 20 x 5 mm size loop was selected based upon the diameter of the lesion. Lugol solution was used to outline the lesions and area of the transformation zone order to be removed 10 cc of xylocaine with epinephrine were injected submucosally into the surface of the cervix (ectocervix) at the 3, 6, 9, and 12 o'clock positions. The electrosurgical generator is set at 40 lee on blend 1. The loop is carefully passed simultaneously around and under the transformation zone, in order to ensure excising it making sure the lesion is at least 5 mm far from the specimen margins . The loop was allowed to glide through the cervix from one side to the other, allowing the cutting current to divide the tissue. Since ECC was positive endo cervical disease could be beyond the reach of the loop, additional tissue was excised from this area with a smaller-diameter loop , endo cervical top-hat excision was performed An endo cervical curettage is performed following completion of excision, and hemostasis is obtained with a Ball electrode or regular tip cautery. At the end, Monsel's solution was applied to the cone bed. The patient tolerated the procedure well and, all instruments were taken out of the patient vaginal cavity, and the patient was transferred to the PACU in stable condition.
== END 2024-05-02 09:18 | disposition home or self-care (01) ==
PROVIDERS: PCP Internal Medicine; Visit Provider Obstetrics & Gynecology
PROC: 0UBC7ZZ Excision of Cervix, Via Natural or Artificial Opening (ICD-10-PCS; CPT 57522; principal; 2024-05-02 07:30)
DX: N87.1 Moderate cervical dysplasia (principal); I10 Essential (primary) hypertension; E78.00 Pure hypercholesterolemia, unspecified; M06.00 Rheumatoid arthritis without rheumatoid factor, unspecified site; R76.11 Nonspecific reaction to tuberculin skin test without active tuberculosis; Z79.899 Other long term (current) drug therapy; F17.210 Nicotine dependence, cigarettes, uncomplicated
CPT/HCPCS: 57461; 88305; 88307; J2003; J2004; J2250; J2704; J3010

== ENCOUNTER → 2024-05-02 05:57 | Outpatient (BNV) | payer OTHER, SELFPAY | PROVIDERS: PCP Internal Medicine; Visit Provider Obstetrics & Gynecology | DX: N87.1 Moderate cervical dysplasia (principal) | CPT/HCPCS: 57461 ==

== ENCOUNTER 2024-05-05 13:09 | Outpatient (AMB) | payer OTHER, SELFPAY ==
--- NOTE | 2024-05-05 13:12 | MHC.OFFVIS ---
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 She has no complaints. [facility] Medical History Long-term use of Plaquenil Seronegative rheumatoid arthritis Positive TB test Encounter before starting medication Smoker unmotivated to quit Inflammatory arthritis Bilateral hand swelling Joint pain in both hands High blood cholesterol HTN (hypertension) Surgical History Hx of esophagogastroduodenoscopy Hx of colonoscopy Social History Household Members Other:: lives alone Are you a primary aged or disabled carer to a significant other at home: No Do you presently have visiting nurse or other home services: No Alcohol intake: current Alcohol intake frequency: holidays/special occasions only Alcohol type: beer Patient Tobacco Use Status: Current everyday Tobacco user Tobacco use type: Cigarette Cigarette Packs Per Day: 1 Cigarettes Per Day: 6 Second Hand Smoke Exposure: No Substance Use Type: Marijuana Review of Systems Const All systems reviewed & are unremarkable except as noted in HPI and below Physical Exam Vital Signs: Last Vital Signs Temp 98.7 F 05/05/24 13:19 Pulse 60 05/05/24 13:19 Pulse Ox 96 05/05/24 13:19 Oxygen Delivery Method Room Air 05/05/24 13:19 BMI result Body Mass Index 20.9 Const General: cooperative Orientation/consciousness: patient oriented x3 HEENT Head: Yes normal to inspection Mouth: Normal oral and palatal mucosa present Eyes General: appearance normal, both eyes and all related structures Pupils: Equal, round and reactive pupils present Resp Effort & Inspection: normal respiratory effort Cardio Rate: regular rate Rhythm: regular rhythm GI Palpation (GI): Soft to palpation and nontender General: Yes no CVA tenderness Back/Spine/Pelvis Back: no CVA tenderness Skin General skin exam: no rashes or lesions noted Neuro General: patient oriented x3 Cranial nerves: Yes CN's II-XII intact bilaterally and Yes Equal, round and reactive pupils present Extrem General: Yes normal to inspection Psych Appearance: grossly normal Assessment & Plan Assessment & Plan (1) Positive TB test: Comment: Continue six months TB treatment. Code(s): R76.11 - Nonspecific reaction to tuberculin skin test without active tuberculosis Category: Medical Plan: Stop treatment in July. No further recheck T spot,will remain positive. Let know if hemoptysis,lymphadenopathy. Coding Level of Care Code Est Pt Level 3 (29361) Diagnoses Positive TB test R76.11
[2024-05-05 13:19] VITALS: PULSE 60; TEMP 37.1; O2SAT 96; BMI 20.9
--- OUTSIDE RECORDS SUMMARY | 2024-05-05 15:25 | XMS_ITS | Encounter Summary ---
Author Organization [employer] Address [address] [facility] [address] [place] [address] Care Team Providers Care Music Industry Intern Name Role Phone Cristy Monet MD Primary Care Provider + Reason for Visit * Reason Comments Med Refill Encounter Details Date Type Department Care Team ([facility] st Contact Info) Description 04/10/2024 Refill [facility] [address] [place], [place] [phone] Olivia Ferguson MD [address] [place], [place] [phone] Resistant hypertension Social History Tobacco Use Types Packs/Day Years Used Date Smoking Tobacco: Every Day Cigarettes Passive Smoke Exposure: Current Smokeless Tobacco: Never Comments:11/30/2023 patient is not interested in smoking cessation at this time Alcohol Use Standard Drinks/Week Comments Yes 0 (1 standard drink = 0.6 oz pur e alcohol) beer PHQ-2 Answer Date Recorded Patient Health Questionnaire-2 Score 0 08/07/2022 Housing Stability Answer Date Recorded What is your housing situation today? I have pool gomez 01/01/[address] you li ve. Do you have problems with any of the following? None of the above 01/01/2023 Food Insecurity Answer Date Recorded Within the past 12 months, y ou worried that your food would run out before you got money to buy more: Never True 01/01/2023 Within the past 12 months,th e food you bought just didn't last and you didn't have enough money to get more: Never True Transportation Answer Date Recorded In the past 12 months, has l ack of transportation kept you from medical appts, meetings, work or from getting things needed for daily living? No 06/05/2023 Utilities Answer Date Recorded In the past 12 months, has t he electric, gas, oil or water company threatened to shut off services in your home? No 01/01/2023 Depression Answer Date Recorded Patient Health Questionnaire-2 Score 0 09/17/2023 Comments No Sex and Gender Information Value Date Recorded Sex Assigned at Female 01/02/2022 10:18 AM EDT Legal Sex Female 10:18 AM EDT Gender Identity Female 01/02/2022 10:18 AM EDT Sexual Orientation Straight 01/02/2022 10 :18 AM EDT documented as of this encounter Plan of Treatment Upcoming Encounters Date Type Department Care Team (Late st Contact Info) Description 05/14/2024 10:30 AM EDT Medication Management [facility] [address] [place] [phone] Sung Rand, PharmD [address] [place] [phone] 06/12/2024 9:00 AM EDT Office Visit [facility] [address] [place] [phone] Cristy Monet MD [address] [place] [phone] documented as of this encounter Visit Diagnoses Diagnosis Resistant hypertension documented in this encounter Care Teams Music Industry Intern Relationship Specialty Start Date End Date Cristy Monet MD [address] [place] [phone] PCP - General Family Medicine 12/12/19 documented as of this encounter
--- OUTSIDE RECORDS SUMMARY | 2024-05-05 15:25 | XMS_ITS | Encounter Summary ---
Author Organization [employer] Address [address] [facility] [address] [place] [address] Care Team Providers Care Paper Reeler Name Role Phone Cristy Monet MD Primary Care Provider + Encounter Details Date Type Department Care Team (Late st Contact Info) Description 09/10/2023 Telephone [facility] [address] [place], [place] [phone] Cristy Monet MD [address] [place], [place] [phone] Social History Tobacco Use Types Packs/Day Years Used Date Smoking Tobacco: Every Day Cigarettes Smokeless Tobacco: Never Alcohol Use Standard Drinks/Week Comments Yes 0 [...] Recorded Patient Health Questionnaire-2 Score 0 08/07/2022 Comments Unknown Sex and Gender Information Value Date Recorded Sex Assigned at Female 01/02/2022 10:18 AM EDT Legal Sex Female 10:18 AM EDT Gender Identity Female 01/02/2022 10:18 AM EDT Sexual Orientation Straight 01/02/2022 10 :18 AM EDT documented as of this encounter Plan of Treatment Upcoming Encounters Date Type Department Care Team (Late st Contact Info) Description 05/14/2024 10:30 AM EDT Medication Management [facility] [address] [place] [phone] Sung Rand, PharmD [address] [place] [phone] 06/12/2024 9:00 AM EDT Office Visit [facility] [address] [place] [phone] Cristy Monet MD [address] [place] [phone] documented as of this encounter Visit Diagnoses Not on filedocumented in this encounter Care Teams Paper Reeler Relationship Specialty Start Date End Date Cristy Monet MD [address] [place] [phone] PCP - General Family Medicine 12/12/19 documented as of this encounter
--- OUTSIDE RECORDS SUMMARY | 2024-05-05 15:25 | XMS_ITS | Encounter Summary ---
Author Organization [employer] Address [address] [facility] 7t [place] [address] Care Team Providers Care Mental Health Orderly Name Role Phone Cristy Monet MD Primary Care Provider + Encounter Details Date Type Department Care Team (Late st Contact Info) Description 04/15/2024 Orders Only [facility] [address] [place], [place] [phone] Cristy Monet MD [address] [place], [place] [phone] Social History Tobacco Use Types Packs/Day Years [...] AM EDT documented as of this encounter Miscellaneous Notes * Result Encounter Note - Cristy Monet MD - 04/15/2024 10:45 AM EST Mammogram on 04/15/2024 showed benign looking findings on left breast that need follow-up in 6 months. Right breast was normal. Please follow-up with patient in 6 months to make sure that she is having mammogram documented in this encounter Plan of Treatment Upcoming Encounters Date Type Department Care Team (Late st Contact Info) Description 05/14/2024 10:30 AM EDT Medication Management [facility] [address] [place] [phone] Sung Rand, PharmD [address] [place] [phone] 06/12/2024 9:00 AM EDT Office Visit [facility] [address] [place] [phone] Cristy Monet MD [address] [place] [address] documented as of this encounter Procedures Procedure Name Priority Date/Time Associated Diagnosis Comments BI MAMMOGRAM DIAGNOSTIC TOMOSYNTHESIS BILATERAL Routine 04/15/2024 10:00 AM EST documented in this encounter Results * BI Mammogram Diagnostic Tomosynthesis Bilateral (04/15/2024 10:00 AM EST) Anatomical Region Laterality Modality Breast Bilateral Mammography 04/15/2024 10:0 0 AM EST Narrative 04/15/2024 10:44 AM EST ? [facility] ? [address] ?[place] [address] ? Mammography Report ? Signed ? Patient: Roel,Delilah ?MR#: [id number] ?? 41 ? : 1955 ?Acct:[id number] ? Age/Sex: 68 / F ?ADM Date: 04/15/24 ? Loc: HO.MAMMO ? Attending Dr: Cristy Monet MD ? Ordering Physician: Cristy Monet MD ?Results: 3.6MProbably Benign Finding - Short 6 M F/U ?? Suggested ? Date of Service: 04/15/24 ?Follow Up: 6 Month F/U ? Procedure(s): MM tomosynthesis diagnostic BI ?? Accession Number(s): [id number] ? cc: Cristy Monet MD ? EXAMINATION: ?? MM DIAGNOSTIC DIGITAL BREAST TOMOSYNTHESIS, BILATERAL ? CLINICAL INFORMATION: ? 6 month follow-up for grouped calcifications in the upper outer left ?? breast posterior depth. ? COMPARISON: ?? Mammography: Comparison is made with relevant prior exams. ? TECHNIQUE: ?? Digital breast mammography with tomosynthesis is performed in both the ?? craniocaudal and mediolateral oblique views along with computer-aided ?? detection (CAD). ? FINDINGS: ?? The breasts are heterogeneously dense, which may obscure small masses ?? (ACR BI-RADS breast composition Category c). ?? Left: ?? post surgical changes are stable. ?? Previously seen grouped punctate and coarse heterogeneous ?? calcifications in the upper outer breast posterior depth are not ?? significantly changed from prior magnification views 6 months ago. ?? No suspicious masses or other abnormal findings. ? Right: ?? No suspicious masses calcifications or other abnormal findings. ? Results are provided to the patient at time of visit by the ?? technologist. ? MM/MM tomosynthesis diagnostic BI ?? IMPRESSION: ?? Left: Grouped altercations in the upper outer quadrant are not ?? significantly changed from prior magnification views. Recommend 6 month ?? follow-up for further evaluation of stability. Probably benign. ? Right: ?? Negative. ? ASSESSMENT: ? BI-RADS BI-RADS 3 - Probably benign finding(s) - 6 month follow-up ?? suggested ? RECOMMENDATION: ?? 6 Month F/U ? This patient's information was entered into a reminder system with a ?? target due date for their next mammogram. ? Electronically signed by: ??Elda Graham DO ??04/15/2024 10:41 AM EST ? Dictated By: ?Gladys,Elda DO ? Signed By: ?<Electronically signed by Elda Graham, DO in OV> ? 04/15/24 1041 ? DD/ 1000 ? TD/TT: 04/15/24 1036 ? Cream Tester: ? Procedure Note Shashi Buckner - 04/15/2024 [facility] [address] [place] [address] Mammography Report Signed Patient: Delilah SevillaMR#: [id number] 39 : 8Acct:[id number] Age/Sex: 68 / FADM Date: 04/15/24 Loc: HO.MAMMO Attending Dr: Cristy Monet MD Ordering Physician: Cristy Monet MD Results: 3.6MProbably Benign Finding - Short 6 M F/U Suggested Date of Service: 04/15/24Follow Up: 6 Month F/U Procedure(s): MM tomosynthesis diagnostic BI Accession Number(s): [id number] cc: Cristy Monet MD EXAMINATION: MM DIAGNOSTIC DIGITAL BREAST TOMOSYNTHESIS, BILATERAL CLINICAL INFORMATION: 6 month follow-up for grouped calcifications in the upper outer left breast posterior depth. COMPARISON: Mammography: Comparison is made with relevant prior exams. TECHNIQUE: Digital breast mammography with tomosynthesis is performed in both the craniocaudal and mediolateral oblique views along with computer-aided detection (CAD). FINDINGS: The breasts are heterogeneously dense, which may obscure small masses (ACR BI-RADS breast composition Category c). Left: post surgical changes are stable. Previously seen grouped punctate and coarse heterogeneous calcifications in the upper outer breast posterior depth are not significantly changed from prior magnification views 6 months ago. No suspicious masses or other abnormal findings. Right: No suspicious masses calcifications or other abnormal findings. Results are provided to the patient at time of visit by the technologist. MM/MM tomosynthesis diagnostic BI IMPRESSION: Left: Grouped altercations in the upper outer quadrant are not significantly changed from prior magnification views. Recommend 6 month follow-up for further evaluation of stability. Probably benign. Right: Negative. ASSESSMENT: BI-RADS BI-RADS 3 - Probably benign finding(s) - 6 month follow-up suggested RECOMMENDATION: 6 Month F/U This patient's information was entered into a reminder system with a target due date for their next mammogram. Electronically signed by: Elda Graham DO 04/15/2024 10:41 AM EST Dictated By: Elda Graham DO Signed By: <Electronically signed by Elda Graham DO in OV> 04/15/24 1041 DD/ 1000 TD/TT: 04/15/24 1036 Cream Tester: us Cristy Monet MD IMG BI PROCEDURES Final Result documented in this encounter Visit Diagnoses Not on filedocumented in this encounter Care Teams Mental Health Orderly Relationship Specialty Start Date End Date Cristy Monet MD [address] [place] [phone] PCP - General Family Medicine 12/12/19 documented as of this encounter
--- OUTSIDE RECORDS SUMMARY | 2024-05-05 15:25 | XMS_ITS | Encounter Summary ---
Author Organization [employer] Address [address] [facility] [address] [place] [address] Care Team Providers Care Fiscal Services Manager Name Role Phone Cristy Monet MD Primary Care Provider + Encounter Details Date Type Department Care Team (Late st Contact Info) Description 04/17/2024 Orders Only [facility] [address] [place], [place] [phone] ProviderIda MD Social History Tobacco Use Types Packs/Day Years [...] is your housing situation today? I have poolthomas gomez 01/01/[address] you [...] Description 05/14/2024 10:30 AM EDT Medication Management [facility] [address] [place] [address] [phone] Sung Rand, DaeD [address] [place] [address] [phone] 06/12/2024 9:00 AM EDT Office Visit [address] [phone] Cristy Monet MD [address] [place] [address] [phone] documented as of this encounter Procedures Procedure Name Priority Date/Time Associated Diagnosis Comments COLPOSCOPY Routine 04/14/2024 3:06 PM EST documented in this encounter Results * Colposcopy (04/14/2024 3:06 PM EST) Historical Provider IN CLINIC/BEDSIDE ORDERAB LES Final Result documented in this encounter Visit Diagnoses Not on filedocumented in this encounter Care Teams Fiscal Services Manager Relationship Specialty Start Date End Date Cristy Monet MD [address] [place] [address] [phone] PCP - General Family Medicine 12/12/19 documented as of this encounter
--- OUTSIDE RECORDS SUMMARY | 2024-05-05 15:25 | XMS_ITS | Encounter Summary ---
Author Organization [employer] Address [address] [facility] 7t [place] [address] Care Team Providers Care Pinion And Wheel Truer Name Role Phone Cristy Monet MD Primary Care Provider + Reason for Visit * Reason Onset Date Comments No Show 04/17/2024 Encounter Details Date Type Department Care Team ([facility] st Contact Info) Description 04/17/2024 Telephone [facility] [address] [place], [place] [phone] Cristy Monet MD [address] [place], [place] [phone] No Show Social History Tobacco Use Types Packs/Day Years [...] as of this encounter Miscellaneous Notes * Telephone Encounter - Kerry Rand - 04/17/2024 11:52 AM EST Pt no showed to appt on 04/17/24 documented in this encounter Plan of Treatment Upcoming Encounters Date Type Department Care Team (Late st Contact Info) Description 05/14/2024 10:30 AM EDT Medication Management [facility] [address] [place] [phone] Sung Rand, PharmD [address] [place] [phone] 06/12/2024 9:00 AM EDT Office Visit [facility] [address] [place] [phone] Cristy Monet MD [address] [place] [phone] documented as of this encounter Visit Diagnoses Not on filedocumented in this encounter Care Teams Pinion And Wheel Truer Relationship Specialty Start Date End Date Cristy Monet MD [address] [place] [phone] PCP - General Family Medicine 12/12/19 documented as of this encounter
--- OUTSIDE RECORDS SUMMARY | 2024-05-05 15:25 | XMS_ITS | Encounter Summary ---
Author Organization [employer] [facility] Address [address] [facility] [address] [place] [address] Care Team Providers Care Mgmt Consultant Name Role Phone Cristy Monet MD Primary Care Provider + Encounter Details Date Type Department Care Team (Late st Contact Info) Description 03/24/2022 Telephone [facility] [address] [place] [phone] Kalina Page, ANASTASIA Social History Tobacco Use Types Packs/Day Years Used Date Smoking Tobacco: Never Assessed Comments Unknown Sex and Gender Information Value [...] AM EDT Medication Management [facility] [address] [place] [phone] Sung Rand, PharmD [address] [place] [phone] 06/12/2024 9:00 AM EDT Office Visit [facility] [address] [place] [phone] Cristy Monet MD [address] [place] [phone] documented as of this encounter Visit Diagnoses Not on filedocumented in this encounter Care Teams Mgmt Consultant Relationship Specialty Start Date End Date Cristy Monet MD [address] [place] [phone] PCP - General Family Medicine 12/12/19 documented as of this encounter
--- OUTSIDE RECORDS SUMMARY | 2024-05-05 15:25 | XMS_ITS | Clinical Summary ---
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 08/04/19 23 Active citalopram (CeleXA) 20 MG tablet TAKE 1 TABLET BY MOUTH DAILY IN THE MORNING DIRECTED 08/04/19 23 Active zolpidem (Ambien) 5 MG tablet Take 5 mg by mouth if needed at bedtime. 08/05/19 23 Active albuterol 108 (90 Base) MCG/ACT inhaler Inhale 2 puffs every 6 (six) hours if needed for wheezing. 18 g 3 06/27/19 24 025 Active metoprolol tartrate (Lopressor) 25 MG tabletIndication s:HTN (hypertension), benign Take 1 tablet (25 mg) by mouth 2 times daily. 180 tablet 2 09/17/19 24 025 Active Umeclidinium [place] (Incruse Ellipta) 62.5 MCG/ACT aerosol powder Inhale 1 Inhalation Once per day. 1 each 09/17/19 24 Active Blood Pressure Monitoring (Blood Pressure Cuff) misc Use daily as prescribed 1 each 10/18/19 24 Active Calcium Carb-Cholecalcif fred (Oyster Shell Calcium w/D) 500-5 MG-MCG tablet TAKE 1 TABLET BY MOUTH TWICE DAILY 180 tablet 3 11/30/19 24 Active acetaminophen (Tylenol 8 Hour) 650 MG ER tablet Take 650 mg by mouth every 8 (eight) hours if needed for mild pain. Do not crush, chew, or split. Active isoniazid (Nydrazid) 300 MG tablet Take 1 tablet by mouth Once per day. 12/31/19 24 Active pyridoxine (Vitamin B-6) 50 MG tablet Take 1 tablet by mouth Once per day. 12/31/19 24 Active hydroCHLOROthiaz megan (HYDRODiuril) 25 MG tablet TAKE 1 TABLET BY MOUTH EVERY MORNING 90 tablet 1 03/03/20 24 Active losartan (Cozaar) 100 MG tablet TAKE 1 TABLET BY MOUTH EVERY MORNING 90 tablet 1 03/03/20 24 Active omeprazole (PriLOSEC) [address] capsule TAKE 1 CAPSULE BY MOUTH TWICE DAILY IN THE MORNING AND IN THE EVENING BEFORE MEALS 60 capsule 04/10/19 25 Active cloNIDine (Catapres) 0.1 MG tabletIndication s:Resistant hypertension TAKE 1 TABLET BY MOUTH TWICE DAILY IN THE MORNING AND IN THE EVENING 60 tablet 04/10/19 25 Active omeprazole (PriLOSEC) [address] capsule TAKE 1 CAPSULE BY MOUTH TWICE DAILY IN THE MORNING AND IN THE EVENING BEFORE MEALS DO NOT BREAK, CRUSH, DISSOLVE OR CHEW 60 capsule 03/07/19 25 025 Discontinued cloNIDine (Catapres) 0.1 MG tabletIndication s:Resistant hypertension TAKE 1 TABLET BY MOUTH TWICE DAILY IN THE MORNING AND IN THE EVENING 60 tablet 03/07/19 25 025 Discontinued Active Problems Problem Noted Date Diagnosed Date Protein-calorie malnutrition, unspecified severi ty 02/18/2024 SVT (supraventricular tachycardia) 01/04/2024 Assessment & Plan (01/15/2024 12:41 PM EST): Stable managed with beta cayla Substance abuse 01/04/2024 Smoker unmotivated to quit 01/04/2024 Positive TB test 01/04/2024 Migraine 01/04/2024 Joint pain in both hands 01/04/2024 Bilateral hand swelling 01/04/2024 Acute hyperkalemia 01/04/2024 Resistant hypertension 01/04/2024 Assessment & Plan (01/04/2024 3:11 PM EDT): Patient is on medbox, I called and I added clonidine 0.1mg BID, I notice electrolyte imbalance in recent BMP, because of this and resistant hypertension (patient also orthostatic) I decided to refer her to nephrology RTC next week nurse visit for BP check ED precautions where reviewed with patient, if headaches, chest pain, dyspnea,, weakness, numbness, confusion, call ambulance or go [facility] to emergency room Vaginal discharge 10/18/2023 Assessment & Plan (10/18/2023 2:18 PM EDT): Most likely physiological. Check STI testing. Encounter for preventive health examination 09/02 Assessment & Plan (09/17/2023 10:11 AM EDT): Discussed with patient re increase fresh fruit and vegetable intake. Counseled re moderate exercise as tolerated, up to 20 min/d Patient feels safe at home. PAP smear: abnormal, has appointment for pap next month Mammogram: abnormal, has additional views 10/09 Eye exam: overdue, has appointment in December Lipids/FBS: up to date Vaccinations: declined PCV today, order Hepatitis titers and f/u with me next appointment Dental visit: overdue, advised to make appointment with dental clinic [facility] Hordeolum externum of left upper eyelid 09/17/19 Assessment & Plan (09/17/2023 10:01 AM EDT): - advised to apply dry heat to affected eyelid or chamomile tea bags - avoid scrubbing of the eyelid - re consult PRN Impacted cerumen of right ear 06/27/2023 Assessment & Plan (09/17/2023 10:10 AM EDT): - she will schedule RN visit for ear lavage - use peroxide ear drops one week prior to appointment Assessment & Plan (06/27/2023 10:40 AM EDT): - needs to come for ear lavage with RN - prescription for peroxide otic solution to use prior to ear lavage Renal cyst 01/13/2023 Overview (01/13/2023): CT scan abd/pelvis 01/09/23= Benign Assessment & Plan (01/13/2023 9:09 AM EST): Right lower lobe, benign features No need for addtl FU Hepatic cyst 01/13/2023 Overview (01/13/2023): CT scan abd/pelvis 01/09/23= Benign Assessment & Plan (01/13/2023 9:08 AM EST): Benign features No need for addtl FU Lower abdominal pain 01/13/2023 Enteritis 01/13/2023 Assessment & Plan (01/13/2023 9:49 AM EST): Resolved, most likely viral. Encouraged adequate hydration, tolerates regular diet. Refer for colonoscopy, last one was more than 10y ago. She agreed with POC FU w me in 2-3m ASCUS of cervix with negative high risk HPV 09/03 Assessment & Plan (10/18/2023 2:19 PM EDT): Pelvic exam today wnl FU pap smear results/HPV/STI testing and will call back PRN positive results or FU in 3 months Pt feels safe at home no concern for DV/STDs Counseled regarding STI prevention If today's pap smear/co testing is normal next one will be due in 3 years. Assessment & Plan (09/17/2023 10:01 AM EDT): - scheduled for pap smear with me next month Assessment & Plan (06/27/2023 10:10 AM EDT): - needs f/u pap on August 2023, will f/u after PE Assessment & Plan (09/28/2022 11:03 AM EDT): diagnosis discussed with pt, repeat Pap smear next year Encounter for cervical Pap smear with pelvic exa m 08/07/2022 Assessment & Plan (08/07/2022 11:15 AM EDT): normal pelvic exam routine Pap smear/STI testing completed, if normal may need in less than 3 years unless she is back on immunosuppressants. Pt feels safe at home, no concern for domestic violence. FU in 1 month. Bone disease 08/07/2022 Assessment & Plan (08/07/2022 11:12 AM EDT): order bone density test. Fibroadenoma of breast 07/05/2022 Blurring of visual image 07/05/2022 Allergic rhinitis 07/05/2022 Acute headache 07/05/2022 Acute diarrhea 07/05/2022 History of non-ST elevation myocardial infarctio n (NSTEMI) 07/05/2022 Sinusitis 07/05/2022 Seronegative rheumatoid arthritis 07/05/2022 Overview (01/04/2024): She has no hemoptysis and no weight loss or lymphadenopathy She had prior positive TB test and then negative per Dr Barth. She has never been treated. Assessment & Plan (06/27/2023 10:39 AM EDT): - seen by rheumatology, reminded her to get labs done today and f/u with medical concierge Assessment & Plan (06/27/2023 9:57 AM EDT): >>ASSESSMENT AND PLAN FOR RHEUMATOID ARTHRITIS INVOLVING BOTH HANDS WITH NEGATIVE RHEUMATOID FACTOR (CMS/HCC) WRITTEN ON 09/28/2022 11:03 AM BY KEVEN LOPEZ It doesn't seem to be active at this time. No need to start on medications now Pt will continue NSAIDS PRN for OA and diego refer to rheumatology for further follow up Assessment & Plan (06/27/2023 9:57 AM EDT): >>ASSESSMENT AND PLAN FOR RHEUMATOID ARTHRITIS INVOLVING BOTH HANDS WITH NEGATIVE RHEUMATOID FACTOR (CMS/HCC) WRITTEN ON 03/15/2023 10:37 AM BY ARIELLA AJY Pt seems to be asymptomatic I will refer to rheumatology in [facility] to improve compliance w/ appointment Assessment & Plan (08/07/2022 11:14 AM EDT): She is not taking any medicaitons at this time, check with pharmacy last time she was on MTX was 2 years ago. Order labs and FU with me in 1 month. Peripheral arterial occlusive disease 12/02/2012 Assessment & Plan (01/15/2024 12:41 PM EST): Stable, denies active claudication Inflammatory arthritis 10/07/2012 Assessment & Plan (01/15/2024 12:41 PM EST): Stable, Cigarette nicotine dependence without complicati on 05/01/2012 Assessment & Plan (09/17/2023 10:09 AM EDT): - currently smoking 5-10 cigs per day - declined nicotine replacement therapy - advised to come to acupuncture clinic, will continue to advise pharmacological therapy, declined other medications to help her quit smoking Assessment & Plan (06/28/2023 8:48 AM EDT): - declined nicotine replacement therapy - Counseled to go to acupuncture clinic for smoking sensation Assessment & Plan (03/15/2023 10:40 AM EST): Counseled to quit smoking, decline nicotine replacement therapy Counseled to go to acupuncture clinic for smoking sensation Assessment & Plan (09/28/2022 11:03 AM EDT): cut down on cigarette smoking, pt declined nicotine replacement therapy counseled to come to acupuncture Assessment & Plan (08/07/2022 11:13 AM EDT): Cut down on cigarette smoking declined nicotine replacement therapy FU at next visit. Depressive disorder 12/11/2011 Assessment & Plan (01/15/2024 12:44 PM EST): Stable on current regimen Chronic obstructive lung disease 12/11/2011 Assessment & Plan (01/15/2024 12:41 PM EST): Encouraged smoking cessation, pt declines assistance today Assessment & Plan (09/17/2023 9:59 AM EDT): - counseled to quit smoking - she starts Incruse, Spiriva was not covered by insurance - continue Albuterol PRN only - she declined PCV IZ today Assessment & Plan (06/27/2023 10:35 AM EDT): - doing better on Combivent. Will switch to Spiriva to improve compliance. - add Albuterol PRN SOB only - counseled to quit smoking, she is not ready to start nicotine replacement therapy - gave pt information about PFT so she can reschedule appt Assessment & Plan (03/15/2023 10:40 AM EST): Counseled pt to cut down smoking, declined to cut down smoking. Cont Combivent PRN only Order PFTs Pt agreed to have Covid and Flu vax today Osteopenia 12/11/2011 Assessment & Plan (09/17/2023 9:59 AM EDT): - continue Calcium, check Vitamin D - order dexa scan Microscopic hematuria 12/11/2011 Hyperlipidemia 12/11/2011 Assessment & Plan (03/15/2023 10:38 AM EST): Pt noncompliant with pravastatin Counseled to take pravastatin every night, I will repeat lipids in 3-4 m Counseled to quit smoking Recommended moderate amount of exercise and increased consumption of fruit, vegetables, fish and high fiber foods. We discussed about avoiding consumption of highly saturated fats or trans fats. HTN (hypertension), benign 12/11/2011 Assessment & Plan (01/15/2024 12:41 PM EST): At goal today Assessment & Plan (10/18/2023 2:20 PM EDT): BP is at goal. Continue same medications and continue to monitor BP at home BIW. Counseled re low salt diet/increase moderate physical activity. Check home BP BIW and prn CP/MARTINES/ABEBE Non smoking patient. Assessment & Plan (09/17/2023 10:07 AM EDT): - uncontrolled, she is non compliant with Isosorbide - restart Isosorbide 30 mg, continue Losartan, HCTZ, and Metoprolol Assessment & Plan (06/27/2023 10:38 AM EDT): - uncontrolled - added Isosorbide ER 30 mg - continue Metoprolol, Losartan, and hydrochlorothiazide - Counseled re low salt diet/increase moderate physical activity. - Check home BP BIW and prn CP/MARTINES/ABEBE - f/u in 6 weeks Assessment & Plan (03/15/2023 10:37 AM EST): Probably controlled, repeated is 120/85 Cont Losartan + Metoprolol Counseled re low salt diet/increase moderate physical activity. Check home BP BIW and prn CP/MARTINES/ABEBE Smoking patient. Labs are due on September 2023 Assessment & Plan (09/28/2022 11:04 AM EDT): Uncontrolled today, pt insists on BP being normal at home Pt to bring BP readings and fu with nurse in 2-3 weeks FU with me in 2-3 months Continue lisinopril/hctz + amlodipine same dose Counseled re low salt diet/increase moderate physical activity. Check home BP BIW and prn CP/MARTINES/ABEBE Assessment & Plan (08/07/2022 11:12 AM EDT): Stage 1, r/o white coat hypertension no change in medications, check BP at home, order labs and FU with me in 1 month Backache 03/15/2011 Weight decreased 03/15/2011 Encounters Date Type Department Care Team Description 04/17/2024 Orders Only [facility] [address] [place] [address] Provider, MD Ida 04/17/2024 Telephone [facility] [address] [place] [address] Cristy Monet MD No Show 04/15/2024 Orders Only [facility] [address] [place] [address] Cristy Monet MD 04/11/2024 Orders Only GENERIC EXTERNAL DATA DEPARTMENT Provider, Generic External Data 04/10/2024 Refill [facility] [address] [place] [address] Olivia Ferguson MD Resistant hypertension 03/26/2024 Telephone [facility] [address] [place] [address] Cristy Monet MD telephone call 03/07/2024 Refill [facility] [address] [place] [address] Cristy Monet MD Resistant hypertension 03/07/2024 Refill [facility] [address] [place] [address] Niru Oakes MD Resistant hypertension 03/03/2024 Refill [facility] [address] [place] [address] Cristy Monet MD 02/18/2024 Telephone [facility] [address] [place] [phone] Cristy Monet MD No Show 02/15/2024 Telephone [facility] [address] [place] [phone] Mely Louis MA Chart prep 02/08/2024 Patient Outreach [facility] [address] [place] [address] Cristy Monet MD Pre-visit Planning ([facility] screening completed on 06/05/2023) 02/08/2024 Refill [facility] [address] [place] [phone] Cristy Monet MD from Last 3 Months Immunizations Name Administration Dates Next Due Hep B, adult 01/30/2006,12/26/2005 Influenza Injectable Quadriv alant Preservative Free IIV4 MDCK 01/12/2020 Influenza injectable quadriv alent IIV4 with preservative 11/21/2018,11/30/2016,12/06/2015 Influenza injectable quadriv alent preservative free 03/15/2023,03/22/2018 Influenza, IIV3, injectable 11/08/2010 Influenza, Injectable, MDCK, preservative free 01/01/2015 Influenza, Split (incl. meghan fied surface antigen) 12/11/2011 Influenza, seasonal, injecta ble, preservative free 01/20/2014 Pneumococcal Polysaccharide PPSV23 08/11/2012,,10/17/2007 TD (adult), 2 Lf tetanus tox oid, preservative free, adsorbed 05/25/2004 Tdap 10/31/2022,12/11/2011 Zoster, Recombinant 10/31/2022 Social History Tobacco Use Types Packs/Day Years Used Date Smoking Tobacco: Every Day Cigarettes Passive Smoke Exposure: Current Smokeless Tobacco: Never Tobacco Cessation:Ready to Q uit: Not Asked; Counseling Given: Not Answered Comments:11/30/2023 patient is not interested in smoking [...] Orientation Straight 01/02/2022 10 :18 AM EDT Last Filed Vital Signs Vital Sign Reading Time Taken Comments Blood Pressure 124/81 01/14/2024 1:13 PM EST Pulse 76 01/14/2024 1:13 PM EST Temperature 36.7 ??C (98 ??F) 01/04/2024 2:23 PM EDT Respiratory Rate 14 01/14/2024 1:13 PM EST Oxygen Saturation 99% 01/14/2024 1:13 PM EST Inhaled Oxygen Concentration - - Weight 52.2 kg (115 lb) 01/14/2024 1:13 PM EST Height 160 cm (5' 3 ) 01/14/2024 1:13 PM EST Body Mass Index 20.37 01/14/2024 1:13 PM EST Plan of Treatment Upcoming Encounters Date Type Department Care Team (Late st Contact Info) Description 05/14/2024 10:30 AM EDT Medication Management [facility] [address] [place] [phone] Sung Rand, PharmD [address] [place] [phone] 06/12/2024 9:00 AM EDT Office Visit [facility] [address] [place] [phone] Cristy Monet MD [address] [place], [place] [phone] Health Maintenance Due Date Last Done Comments CT Colonography 1955 FIT DNA/Cologuard 1955 FIT 1955 FOBT 1955 Sigmoidoscopy 1955 Alcohol/Substance Use Screening 1969 Hepatitis A Vaccines (1 of 2 - Risk 2-dose series) 1976 Hepatitis B Vaccines (3 of 3 - Risk 3-dose series) 06/26/2006 01/30/2006, 12/26/2005 Pneumococcal Vaccine: 50+ Years (2 of 2 - PCV) 08/11/2013 08/11/2012, 11/25/2008, 10/17/2007 RSV Patients and Patients Aged 60 years or older (1 - Risk 60-74 years 1-dose series) 2017 Zoster Vaccines (2 of 2) 12/26/2022 10/31/2022 COVID-19 Vaccine (3 - 2024-25 season) 2023 01/04/2021, 12/14/2020 Influenza Vaccine (#1) 2023 , 01/12/2020, 11/21/2018, Additional history exists SDOH Screening 06/04/2024 06/05/2023 Depression Screening 09/16/2024 09/17/2023, 09/17/19 Diagnostic Breast Imaging 10/13/20242024, 10/10/2023, 07/07/2022 HPV/Cotest 10/17/2024 10/18/2023, 08/07/2022 Pap Smear 10/17/2024 10/18/2023, 0607/2022, 08/07/2022, Additional history exists Tobacco Screening 01/13/2025 01/14/2024 Lipid Panel 12/18/2028 12/19/2023, 09/02, 05/04/2021 Colonoscopy 12/24/2028 12/25/2023 Colorectal Cancer Screening 12/24/2028 DTaP/Tdap/Td Vaccines (3 - Td or Tdap) 10/31/2032 10/31/2022, 12/11/2011, 05/25/2004 Hepatitis C Screening Completed 12/04/2023, 023 HIB Vaccines Aged Out No longer eligi ble based on patient's age to complete this topic HPV Vaccines Aged Out No longer eligi ble based on patient's age to complete this topic IPV Vaccines Aged Out No longer eligi ble based on patient's age to complete this topic Meningococcal Vaccine Aged Out No kylee zachary eligible based on patient's age to complete this topic RSV under 20 months Aged Out No longe r eligible based on patient's age to complete this topic Rotavirus Vaccines Aged Out No longer eligible based on patient's age to complete this topic Procedures Procedure Name Priority Date/Time Associated Diagnosis Comments BI MAMMOGRAM DIAGNOSTIC TOMOSYNTHESIS BILATERAL Routine 04/15/2024 10:00 AM EST COLPOSCOPY Routine 04/14/2024 3:06 PM EST HEMATOXYLIN AND EOSIN STAIN Routine 04/11/2024 10:30 AM EST HM COLONOSCOPY Routine 12/25/2023 LIPID PANEL, STANDARD Routine 12/19/2023 9:22 AM EDT HEPATITIS PANEL, GENERAL Routine 12/04/2023 9:36 AM EDT Encounter for preventive health examination THINPREP?? IMAGING PAP REFL HPV MRNA(IF ASCUS,ASC-H,LSIL) Routine 10/18/2023 10:43 AM EDT from Last 3 Months or Most Recently Relevant to Health Maintenance Results * BI Mammogram Diagnostic Tomosynthesis Bilateral (04/15/2024 10:00 AM EST) Anatomical Region Laterality Modality Breast Bilateral Mammography 04/15/2024 10:0 0 AM EST Narrative 04/15/2024 10:44 AM EST ? [facility] [place] ? [address] ?[place] [address] ? Mammography Report ? Signed ? Patient: Roel,Delilah ?MR#: [id number] ?? 41 ? : 1955 ?Acct:[id number] ? Age/Sex: 68 / F ?ADM Date: 04/15/24 ? Loc: HO.MAMMO ? Attending Dr: Cristy Monet MD ? Ordering Physician: Cristy Monet MD ?Results: 3.6MProbably Benign Finding - Short 6 M F/U ?? Suggested ? Date of Service: 04/15/24 ?Follow Up: 6 Month F/U ? Procedure(s): MM tomosynthesis diagnostic BI ?? Accession Number(s): [id number] ? cc: Cristy Monet MD ? EXAMINATION: [...] ??04/15/2024 10:41 AM EST ? Dictated By: ?Elda Graham DO ? Signed By: ?<Electronically signed by Elda Graham, DO in OV> ? 04/15/241040 ? DD/ 1000 ? TD/TT: 04/15/24 1036 ? Cardroom Plastic Card Grader: ? Procedure Note Donotuseinterpreter, Image - 04/15/2024 [facility] [address] [place] [address] Mammography Report Signed Patient: Delilah SevillaMR#: [id number] 39 : 8Acct:[id number] Age/Sex: 68 / FADM Date: 04/15/24 Loc: HO.MAMMO Attending Dr: Cristy Monet MD Ordering Physician: Cristy Monet MD Results: 3.6MProbably Benign Finding - Short 6 M F/U Suggested Date of Service: 04/15/24Follow Up: 6 Month F/U Procedure(s): MM tomosynthesis diagnostic BI Accession Number(s): [id number] cc: Cristy Monet MD EXAMINATION: MM DIAGNOSTIC [...] 04/15/24 1041 DD/ 1000 TD/TT: 04/15/24 1036 Cardroom Plastic Card Grader: Cristy Monet MD IMG BI PROCEDURES Final Result * Colposcopy (04/14/2024 3:06 PM EST) Historical Provider MD IN CLINIC/BEDSIDE ORDERAB LES Final Result * Hematoxylin and Eosin Stain (04/11/2024 10:30 AM EST) 04/11/2024 10:3 0 AM EST 04/14/2024 6:30 AM EST Narrative [facility] - 04/17/2024 2:29 PM EST ----- ------- Name: Delilah Sevilla ? Age/Sex: 68/F ? : 1955 Unit#: [id number] ?? Attend Dr: Niall Pearson MD ?Re04/11/24 ?Status: DEP REF ? Location: HO.LNP ?Disch: ? ----- ------- SPEC : [id number] ?RECD: 04/14/24 ? STATUS: ??SOUT ? REQ NUM: [id number] ? ADELAIDE: 04/11/24-0 ? SUBM DR: Niall Pearson MD ? ENTERED: ??04/14/24 ?SP TYPE: Surgical ? OTHR DR: Cristy Monet MD ? ORDERED: ??HE Stain/20, Gross Micro L4/7, IHC/2, IHC ER/FL/Her2N/2, Ki-67/2, p16/2 ? Diagnosis ?? A. ??Endocervix, curettage: ??High grade squamous intraepithelial lesion (AZALIA 2). ? B. ??Cervix, 1 o'clock, biopsy: ??High grade squamous intraepithelial lesion (AZALIA 2). ? C. ??Cervix, 4 o'clock, biopsy: ??Acute and chronic cervicitis with reactive epithelial ?? changes; negative for squamous intraepithelial lesion. ? D. ??Cervix, 6 o'clock, biopsy: ??Fragments of inflamed endocervical glands, negative for ?? squamous intraepithelial lesion. ? E. ??Cervix, 7 o'clock, ??biopsy: ??Low grade squamous intraepithelial lesion (AZALIA 1). ? F. ??Cervix, 11 o'clock, biopsy: ??Fragments of squamous mucosa within normal limits; ?? negative for squamous intraepithelial lesion. ? G. ??Cervix, 12 o'clock, biopsy: ??Low grade squamous intraepithelial lesion (AZALIA 1). ? COMMENT: ??Note is made of the patient's history of an abnormal pap (ASCUS; HPV+) that ?? correlates with the above findings. ?Clinical History ASCUS with positive HPV cervical ?Microscopic Description Microscopic sections reviewed. Immunostains for p16 and ki-67 on parts A and B support a high grade squamous intraepithelial lesion. ? Material Received ?? A. ECC ?? B. Cxbx 1 o'clock ?? C. Cxbx 4 o'clock ?? D. Cxbx 6 o'clock ?? E. Cxbx 7 o'clock ?? F. Cxbx 11 o'clock ?? G. Cxbx 12 o'clock ? CONTINUED ON NEXT PAGE ----- ------- Name: Delilah Sevilla ? Age/Sex: 68/F ? : 1955 Unit#: [id number] ?? Attend Dr: Niall Pearson MD ?Re04/11/24 ?Status: DEP REF ? Location: HO.LNP ?Disch: ? ----- ------- SPEC : [id number] ?RECD: 04/14/24 ? STATUS: ??SOUT ? REQ NUM: [id number] ? A[place]LAIDE: 04/11/24-1029 ? SUBM DR: Niall Pearson MD ? ENTERED: ??04/14/24 ?SP TYPE: Surgical ? OTHR DR: Cristy Monet MD ? ORDERED: ??HE Stain/20, Gross Micro L4/7, IHC/2, IHC ER/FL/Her2N/2, Ki-67/2, p16/2 ? Gross Description Received in 7 parts. A. ??Received in formalin labeled ?ECC? are minute fragments of cano- white soft tissue and mucus forming an aggregate measuring 0.4 x 0.4 x 0.1 cm which is wrapped in lens paper and entirely submitted for microscopic examination, multiple pieces in cassette A. B. ??Received in formalin labeled ?CX Bx 1? are minute fragments of cano-white soft tissue and mucus forming an aggregate measuring 0.3 x 0.2 x 0.1 cm which is wrapped in lens paper and entirely submitted for microscopic examination, multiple pieces in cassette B. C. Received in formalin labeled ?CX Bx 4? is a fragment of rubbery, white tissue measuring 0.5 x 0.3 x 0.2 cm which is wrapped in lens paper and entirely submitted for microscopic examination, 1 piece in cassette C. D. ??Received in formalin labeled ?CX Bx 6? are minute fragments of white soft tissue and mucus forming in aggregate measuring 0.2 x 0.2 x 0.1 cm which is wrapped in lens paper and entirely submitted for microscopic examination, multiple pieces in cassette D. E. Received in formalin labeled ?CX Bx 7? is a fragment of rubbery, white tissue measuring 0.2 cm in greatest dimension which is wrapped in lens paper and entirely submitted for microscopic examination, 1 piece in cassette E. F. Received in formalin labeled ?CX Bx 11? are minute fragments of white soft tissue and mucus forming in aggregate measuring 0.5 x 0.4 x 0.1 cm which is wrapped in lens paper and entirely submitted for microscopic examination, multiple pieces in cassette F. G. Received in formalin labeled ?CX Bx 12? is a fragment of rubbery, white tissue measuring 0.3 cm in greatest dimension which is wrapped in lens paper and entirely submitted for microscopic examination, 1 piece in cassette G. smc Special stains ordered and performed: ??Immunostains for p16 and ki-67 on A and B. Copies To: ?? Cristy Monet MD ?? [facility] ?? [address] [facility] ?? [place] [address] ?? [phone] ? CONTINUED ON NEXT PAGE ----- ------- Name: Roel,Delilah ? Age/Sex: 68/F ? : 1955 Unit#: [id number] ?? Attend Dr: Niall Pearson MD ?Re04/11/24 ?Status: DEP REF ? Location: HO.LNP ?Disch: ? ----- ------- SPEC : [id number] ?RECD: 04/14/24 ? STATUS: ??SOUT ? REQ NUM: [id number] ? ADELAIDE: 04/11/24-0 ? SUBM DR: Niall Pearson MD ? ENTERED: ??04/14/24 ?SP TYPE: Surgical ? OTHR DR: Cristy Monet MD ? ORDERED: ??HE Stain/20, Gross Micro L4/7, IHC/2, IHC ER/FL/Her2N/2, Ki-67/2, p16/2 ? Copies To: ??(Continued) ?? Niall Pearson MD ?? [facility] ?? [address] ?? [place] [address] ?? [phone] ----- ------- Signed (signature on file) Sejal Romero MD 04/17/24 3447 ? ----- ------- ? END OF REPORT ? us Generic External Data Provider LAB BLOOD ORDERAB LES Final Result Performing Organization Address [facility] de Phone Number [facility] [address] [place] [address] [phone] * (ABNORMAL) Colonoscopy (12/25/2023) Colonoscopy Abnormal( A) Normal [facility] Comment:TA + hyperplastic po lyps us Cristy Monet MD HEALTH MAINTENANCE Final Result Performing Organization Address [facility] Co de Phone Number [facility] [address] [place], [place] [phone] * (ABNORMAL) Lipid Panel, Standard (12/19/2023 9:22 AM EDT) Triglycerides 79 <150 mg/dL [facility] Comment:Desirable Triglyceri de: less than 150 mg/dLBorderline High Triglyceride 150-199 mg/dLHigh Triglyceride: 200-499 mg/dLVery High Triglyceride: greater than or equal to 5OO mg/dL Cholesterol 224(H) <200 mg/dL [facility] Comment:Desirable Cholestero l: less than 200 mg/dLBorderline High Cholesterol: 200-239 mg/dLHigh Cholesterol: greater than 239 mg/dL LDL Cholesterol Calculated 117(H) <100 mg/dL [facility] Comment:Desirable LDL: less than 100 mg/dLNear Optimal/Above Optimal LDL: 110- 129 mg/dLBorderline High LDL: 130-159 mg/dLHigh LDL: 160-189 mg/dLVery High LDL: greater than or equal to 190 mg/dL HDL Cholesterol 92 >40 mg/dL [facility] Comment:Desirable HDL: great er than 40 mg/dL Note: This HDL assay may give artificially low results in patients with liver disease. 12/19/2023 9:22 AM EDT 12/19/2023 11:43 AM EDT Cristy Monet MD LAB BLOOD ORDERABLES Fin al Result [facility] [address] [place] [address] [phone] * Hepatitis Panel, General (12/04/2023 9:36 AM EDT) Hepatitis A IgM Nonreactive Nonreactive [facility] Comment:IgM antibodies to MARTINES V not detected; does not exclude earlyacute or recovered HAV infection. ~Hepatitis B Surface Antibody REACTIVE Nonreactive [facility] Comment:REACTIVE: > 11.99 mI U/mL Hepatitis B Core Antibody Nonreactive Nonreactive [facility] Hepatitis C Antibody Nonreactive Nonreactive [facility] Comment:Antibodies to HCV no t detected; does not exclude early acuteHCV infection. Hepatitis B Surface Ag Negative Negative [facility] Blood 12/04/2023 9:36 AM EDT 12/04/2023 11:01 AM EDT Cristy Monet MD LAB BLOOD ORDERABLES Fin al Result [facility] [address] [place] [address] [phone] * (ABNORMAL) ThinPrep?? Imaging Pap Refl HPV mRNA(if ASCUS,ASC- H,LSIL,HSIL,TWILA)Refl Genotype (10/18/2023 10:43 AM EDT) HPV nRNA E6/E7 Detected(A ) Not Detected [facility] Comment:Methodology: Transcr iption-Mediated AmplificationThis assay detects E6/E7 viral messenger RNA (mRNA) from 14high-risk HPV types (16,18,31,33,35,39,45,51,52,56,58,59,66,68).Cervical sources are required for HPV testing.If a vaginal source from a patient who has had atotal hysterectomy with removal of cervix wassubmitted, please contact the testing laboratoryfor alternative testing options.For additional information, please refer tohttp://education.[employer]/faq/JDE106l2(This link if provided for information/educational purposes only.)THIS TEST WAS PERFORMED AT:[facility] [place] [phone] MEDINA MD HPV 16,18/45 NOT DETECTED NOT DETECTED [facility] Comment:Methodology: Transcr iption Mediated AmplificationCervical sources are required for HPV testing.If a vaginal source from a patient who has had atotal hysterectomy with removal of cervix wassubmitted, please contact the testing laboratoryfor alternative testing options.THIS TEST WAS PERFORMED AT:[facility] [place] [phone] MEDINA MD SOURCE: SEE NOTE [facility] Comment:None given Report Status: TNP [facility] Clinical Information: SEE NOTE [facility] Comment:None given LMP: SEE NOTE [facility] Comment:NONE GIVEN Prev. PAP: SEE NOTE [facility] Comment:NONE GIVEN Prev. BX: SEE NOTE [facility] Comment:NONE GIVEN Statement Of Adequacy: SEE NOTE [facility] Comment:Satisfactory for naheed luation.Endocervical/transformation zone componentpresent. General Categorization: SEE NOTE(A) [facility] Comment:Cytology Results: Ep ithelial Cell Abnormality Interpretation/Result: SEE NOTE(A) [facility] Comment:Atypical Squamous Ce lls of UndeterminedSignificance (ASC-US) Cytology Comment SEE NOTE [facility] Comment:This Pap test has be en evaluated with computerassisted technology. Highway Patrol Pilot: SEE NOTE [facility] Comment:DCR, CT(ASCP)CT scre ening location: [place] [address] [address] Pilot: [facility] Pathologist SEE NOTE [facility] Comment:Valerio Romero M.D./M.S .,Board Certified in Anatomic Pathology andBoard Eligible Cytopathology(electronic signature)Consulting PathologistBoston [facility] Center Pathology[address] [place] [address] [phone] PAP Infection [facility] See Note SEE NOTE [facility] Comment:EXPLANATORY NOTE:The Pap is a screening test for cervical cancer. It isnot a diagnostic test and is subject to false negativeand false positive results. It is most reliable when asatisfactory sample, regularly obtained, is submittedwith relevant clinical findings and history, and whenthe Pap result is evaluated along with historic andcurrent clinical information.THIS TEST WAS PERFORMED AT:[facility] ANATOMIC PATHOLOGY[address] [place] [phone] REYEZ MD 10/18/2023 10:4 3 AM EDT 10/18/2023 4:30 PM EDT Narrative [facility] - 10/31/2023 11:52 AM EDT SEE SCANNED RESULTS IN EMR us Cristy Monet MD LAB CYTOLOGY ORDERABLES Final Result [facility] [address] [place] [address] [phone] from Last 3 Months or Most Recently Relevant to Health Maintenance [place] [address] - [employer] Care Teams Solar Electric Installer Relationship Specialty Start Date End Date Cristy Monet MD [address] [place] [phone] PCP - General Family Medicine 12/12/19
--- OUTSIDE RECORDS SUMMARY | 2024-05-05 15:25 | XMS_ITS | Encounter Summary ---
Author Organization [facility] [employer] [facility] Address [address] [facility] 7t [place] [address] Care Team Providers Care Roof Foreman Name Role Phone Cristy Monet MD Primary Care Provider + Encounter Details Date Type Department Care Team (Late Contact Info) Description 09/13/2022 Orders Only [facility] [address] [place] [address] [phone] Cristy Monet MD [address] [place] [address] [phone] Hyperkalemia (Primary Dx); Hypercalcemia Social History Tobacco Use Types Packs/Day Years Used Date Smoking Tobacco: Every Day Cigarettes Smokeless Tobacco: Never Alcohol Use Standard Drinks/Week Comments Yes 0 (1 standard drink = 0.6 oz pur e alcohol) sometimes PHQ-2 Answer Date Recorded Patient Health Questionnaire-2 Score 0 08/07/2022 Depression Answer Date Recorded Patient Health Questionnaire-2 [...] Encounters Date Type Department Care Team (Late Contact Info) Description 05/14/2024 10:30 AM EDT Medication Management [facility] [address] [place] [address] [phone] Sung Rand, PharmD [address] [place] [address] [phone] 06/12/2024 9:00 AM EDT Office Visit [facility] [address] [place] [address] Cristy Monet MD [address] [place] [phone] documented as of this encounter Procedures Procedure Name Priority Date/Time Associated Diagnosis Comments BASIC METABOLIC PANEL Routine 09/25/2022 8:41 AM EDT Hyperkalemia Hypercalcemia documented in this encounter Results * (ABNORMAL) Basic Metabolic Panel (09/25/2022 8:41 AM EDT) Sodium 138 135 - 145 mmol/L [facility] Potassium 5.0 3.3 - 5.1 mmol/L [facility] Chloride 102 96 - 108 mmol/L [facility] Carbon Dioxide 30(H) 22 - 29 mmol/L [facility] Anion Gap 11(L) 12 - 20 [facility] Urea Nitrogen (BUN) 15 9 - 16 mg/dL [facility] Creatinine, Serum 0.78 0.5 - 1.4 mg/dL [facility] Estimated Glomerular Filt Rate >60 [facility] Comment:NOTE: For -Am erican individuals, multiply the result by 1.210.Chronic Kidney Disease: Estimated GFR < 60 mL/min/1.49b9Wcngbj Kidney Disease: Estimated GFR < 15 mL/min/1.73m2 Glucose 96 60 - 115 mg/dL [facility] Calcium 9.6 8.4 - 10.2 mg/dL [facility] Blood Venous blood specimen / Unknown 09/25/2022 8:41 AM EDT 09/25/2022 11:03 AM EDT us Cristy Monet MD LAB BLOOD ORDERABLES Fin al Result [facility] [address] [place] [address] [phone] documented in this encounter Visit Diagnoses Diagnosis Hyperkalemia- Primary Hyperpotassemia Hypercalcemia documented in this encounter Care Teams Roof Foreman Relationship Specialty Start Date End Date Cristy Monet MD [address] [place] [phone] PCP - General Family Medicine 12/12/19 documented as of this encounter
--- OUTSIDE RECORDS SUMMARY | 2024-05-05 15:25 | XMS_ITS | Encounter Summary ---
Author Organization [employer] [facility] Address [address] [facility] 7t [place] [address] Care Team Providers Care Marketing Instructor Name Role Phone Cristy Monet MD Primary Care Provider + Encounter Details Date Type Department Care Team (Late st Contact Info) Description 07/07/2022 Orders Only [facility] [address] [place] [phone] Odilia Smiley LPN Social History Tobacco Use Types Packs/Day Years [...] Description 05/14/2024 10:30 AM EDT Medication Management [facility] [address] [place] [phone] Sung Rand, PharmD [address] [place] [phone] 06/12/2024 9:00 AM EDT Office Visit [facility] [address] [place] [address] [phone] Cristy Monet MD [address] [place], [place] [phone] documented as of this encounter Procedures Procedure Name Priority Date/Time Associated Diagnosis Comments BI MAMMOGRAM SCREENING TOMOSYNTHESIS BILATERAL Routine 07/07/2022 1:05 PM EDT documented in this encounter Results * BI Mammogram Screening Tomosynthesis Bilateral (07/07/2022 1:05 PM EDT) Anatomical Region Laterality Modality Breast Bilateral Mammography 07/07/2022 1:05 PM EDT Narrative 07/10/2022 1:12 PM EDT ? [facility] ? [address] ?[place] [address] ? Mammography Report ? Signed ? Patient: Roel,Delilah ?MR#: [id number] ?? 41 ? : 1955 ?Acct:[id number] ? Age/Sex: 66 / F ?ADM Date: 07/07/22 ? Loc: HO.MAMMO ? Attending Dr: Cristy Monet MD ? Ordering Physician: Cristy Monet MD ?Results: 2Be ?? nign Findings ? Date of Service: 07/07/22 ?Follow Up: 1 Year From Orig ?? inal Mammogram ? Procedure(s): MM tomosynthesis screening BI ?? Accession Number(s): [id number] ? cc: Cristy Monet MD ? EXAMINATION: ?? MM SCREENING DIGITAL BREAST TOMOSYNTHESIS, BILATERAL ? CLINICAL INFORMATION: ? Screening. Asymptomatic. Benign right stereotactic biopsy 11/22/2017; ?? prior left excisional biopsy 06/06/2006. ? The lifetime risk of breast cancer based on the Tyrer-Cuzick Model is ?? 13%. ? COMPARISON: ?? Multiple prior mammography exams including most recent mammography ?? 01/21/2021. ? TECHNIQUE: ?? Digital breast tomosynthesis is performed in both the craniocaudal and ?? mediolateral oblique views along with computer-aided detection (CAD). ?? Synthesized 2D images are generated from the tomosynthesis. ? FINDINGS: ?? The breasts are heterogeneously dense, which may obscure small masses ?? (ACR BI-RADS breast composition Category c). ? Parenchymal pattern is similar to prior studies and there is no ?? developing density or interval architectural abnormality or abnormal ?? calcifications. Again, there is biopsy clip marker mid 3:00 right ?? breast with some adjacent benign coarse calcifications. There are other ?? scattered bilateral benign vascular and some coarse calcifications in ?? both breasts. Old scarring again seen anterior left breast consistent ?? with the prior excisional biopsy. The axilla are unremarkable. ??No ?? significant changes. ? MM/MM tomosynthesis screening BI ?? IMPRESSION: ?? No significant changes from prior exams. ?? No mammographic evidence of malignancy. ? ASSESSMENT: ? BI-RADS 2: Benign ? RECOMMENDATION: ?? Routine annual mammography screening. ? This patient's information was entered into a reminder system with a ?? target due date for their next mammogram. ? Dictated By: ?Viktor Lunsford MD ? Signed By: ?<Electronically signed by Viktor Lunsford MD in OV> ?07/10/22 1309 ? DD/ 1305 ? TD/TT: ? General Helper: ACOSTA ? Procedure Note Sita, Shashi - 08/31/2022 [facility] [address] [place] [address] Dr. [place], [place] [address] Mammography Report Signed Patient: Delilah SevillaMR#: [id number] 39 : 8Acct:[id number] Age/Sex: 66 / FADM Date: 07/07/22 Loc: HO.MAMMO Attending Dr: Cristy Monet MD Ordering Physician: Cristy Monet MDResults: 2Be nign Findings Date of Service: 07/07/22Follow Up: 1 Year From Orig inal Mammogram Procedure(s): MM tomosynthesis screening BI Accession Number(s): [id number] cc: Cristy Monet MD EXAMINATION: MM SCREENING DIGITAL BREAST TOMOSYNTHESIS, BILATERAL CLINICAL INFORMATION: Screening. Asymptomatic. Benign right stereotactic biopsy 11/22/2017; prior left excisional biopsy 06/06/2006. The lifetime risk of breast cancer based on the Tyrer-Cuzick Model is 13%. COMPARISON: Multiple prior mammography exams including most recent mammography 01/21/2021. TECHNIQUE: Digital breast tomosynthesis is performed in both the craniocaudal and mediolateral oblique views along with computer-aided detection (CAD). Synthesized 2D images are generated from the tomosynthesis. FINDINGS: The breasts are heterogeneously dense, which may obscure small masses (ACR BI-RADS breast composition Category c). Parenchymal pattern is similar to prior studies and there is no developing density or interval architectural abnormality or abnormal calcifications. Again, there is biopsy clip marker mid 3:00 right breast with some adjacent benign coarse calcifications. There are other scattered bilateral benign vascular and some coarse calcifications in both breasts. Old scarring again seen anterior left breast consistent with the prior excisional biopsy. The axilla are unremarkable. No significant changes. MM/MM tomosynthesis screening BI IMPRESSION: No significant changes from prior exams. No mammographic evidence of malignancy. ASSESSMENT: BI-RADS 2: Benign RECOMMENDATION: Routine annual mammography screening. This patient's information was entered into a reminder system with a target due date for their next mammogram. Dictated By: Viktor Lunsford MD Signed By: <Electronically signed by Viktor Lunsford MD in OV> 07/10/22 1309 DD/ 1305 TD/TT: General Helper: ACOSTA [facility] External Provider IMG BI PROCEDURES Final Result documented in this encounter Visit Diagnoses Not on filedocumented in this encounter Care Teams Marketing Instructor Relationship Specialty Start Date End Date Cristy Monet MD [address] [place] [phone] PCP - General Family Medicine 12/12/19 documented as of this encounter
--- OUTSIDE RECORDS SUMMARY | 2024-05-05 15:25 | XMS_ITS | Encounter Summary ---
Author Organization [employer] [facility] Address [address] [place] [address] 7t [place] [address] Care Team Providers Care Electric Switch Repairer Name Role Phone Cristy Monet MD Primary Care Provider + Encounter Details Date Type Department Care Team (Late st Contact Info) Description 03/28/2022 Orders Only [facility] [address] [place] [phone] Odilia Smiley LPN Social History Tobacco Use [...] Description 05/14/2024 10:30 AM EDT Medication Management [facility] [address] [place] [phone] Sung Rand, PharmD [address] [place] [phone] 06/12/2024 9:00 AM EDT Office Visit [facility] [address] [place] [phone] Cristy Monet MD [address] [place] [phone] documented as of this encounter Visit Diagnoses Not on filedocumented in this encounter Care Teams Electric Switch Repairer Relationship Specialty Start Date End Date Cristy Monet MD [address] [place] [phone] PCP - General Family Medicine 12/12/19 documented as of this encounter
--- OUTSIDE RECORDS SUMMARY | 2024-05-05 15:25 | XMS_ITS | Encounter Summary ---
Author Organization [employer] Address [address] [facility] 7t [place] [address] Care Team Providers Care Position Classifier Name Role Phone Cristy Monet MD Primary Care Provider + Reason for Visit * Reason Comments Med Refill Encounter Details Date Type Department Care Team ([facility] st Contact Info) Description 01/14/2024 Refill [facility] [address] [place], [place] [phone] Cristy Monet MD [address] [place], [place] [phone] Social History Tobacco Use Types Packs/Day Years [...] Description 05/14/2024 10:30 AM EDT Medication Management [facility] [address] [place] [phone] Sung Rand, PharmD [address] [place] [phone] 06/12/2024 9:00 AM EDT Office Visit [facility] [address] [place] [phone] Cristy Monet MD [address] [place] [phone] documented as of this encounter Visit Diagnoses Not on filedocumented in this encounter Care Teams Position Classifier Relationship Specialty Start Date End Date Cristy Monet MD [address] [place] [phone] PCP - General Family Medicine 12/12/19 documented as of this encounter
--- OUTSIDE RECORDS SUMMARY | 2024-05-05 15:25 | XMS_ITS | Encounter Summary ---
Author Organization [employer] Address [address] [facility] 7t [place] [address] Care Team Providers Care Chemist Internship Name Role Phone Cristy Monet MD Primary Care Provider + Encounter Details Date Type Department Care Team (Late st Contact Info) Description 04/11/2024 Orders Only GENERIC EXTERNAL DATA DEPARTMENT Provider, Generic External Data Social History Tobacco Use Types Packs/Day Years [...] Encounter Note - Cristy Monet MD - 04/11/2024 11:59 PM EST Results of cervical biopsy done by Dr. Pearson on 04/11/2024 showed AZALIA-2. Please update Pap smear records and make sure the patient has a follow-up appointment with YARD ENGINEER. documented in this encounter Plan of Treatment Upcoming Encounters Date Type Department Care Team (Late st Contact Info) Description 05/14/2024 10:30 AM EDT Medication Management [facility] [address] [place] [phone] Sung Rand, PharmD [address] [place] [phone] 06/12/2024 9:00 AM EDT Office Visit [facility] [address] [place] [phone] Cristy Monet MD [address] [place] [address] documented as of this encounter Procedures Procedure Name Priority Date/Time Associated Diagnosis Comments HEMATOXYLIN AND EOSIN STAIN Routine 04/11/2024 10:30 AM EST documented in this encounter Results * Hematoxylin and Eosin Stain (04/11/2024 10:30 AM EST) 04/11/2024 10:3 0 AM EST 04/14/2024 6:30 AM EST [facility] - 04/17/2024 2:29 PM EST ----- ------- Name: Roel,Delilah ? Age/Sex: 68/F ? : 1955 Unit#: [id number] ?? Attend Dr: Niall Pearson MD ?Re04/11/24 ?Status: DEP REF ? Location: HO.LNP ?Disch: ? ----- ------- SPEC : [id number] ?RECD: 04/14/24 ? STATUS: ??SOUT ? REQ NUM: [id number] ? [place]: 04/11/24-1029 ? SUBM DR: Niall Pearson MD ? ENTERED: ??04/14/24-653 ?SP TYPE: Surgical ? OTHR DR: Cristy Monet MD ? ORDERED: ??HE Stain/20, Gross Micro L4/7, IHC/2, IHC ER/MO/Her2N/2, Ki-67/2, p16/2 ? Diagnosis ?? A. ??Endocervix, [...] ? Age/Sex: 68/F ? : 1955 Unit#: [id number] ?? Attend Dr: Niall Pearson MD ?Re04/11/24 ?Status: DEP REF ? Location: HO.LNP ?Disch: ? ----- ------- SPEC : [id number] ?RECD: 04/14/24 ? STATUS: ??SOUT ? REQ NUM: [id number] ? [place]: 04/11/24-1029 ? SUBM DR: Niall Pearson MD ? ENTERED: ??04/14/24 ?SP TYPE: Surgical ? OTHR DR: Cristy Monet MD ? ORDERED: ??HE Stain/20, Gross Micro L4/7, IHC/2, IHC ER/MO/Her2N/2, Ki-67/2, p16/2 ? Gross Description Received in [...] Copies To: ?? Cristy Monet MD ?? [facility] ?? [address] [facility] ?? [place] [address] ?? [phone] ? CONTINUED ON NEXT PAGE ----- ------- Name: Roel,Delilah ? Age/Sex: 68/F ? : 1955 Unit#: [id number] ?? Attend Dr: Niall Pearson MD ?Re04/11/24 ?Status: DEP REF ? Location: HO.LNP ?Disch: ? ----- ------- SPEC : [id number] ?RECD: 04/14/24-629 ? STATUS: ??SOUT ? REQ NUM: [id number] ? [place]: 04/11/24-1030 ? SUBM DR: Niall Pearson MD ? ENTERED: ??04/14/24-653 ?SP TYPE: Surgical ? OTHR DR: Cristy Monet MD ? ORDERED: ??HE Stain/20, Gross Micro L4/7, IHC/2, IHC ER/MO/Her2N/2, Ki-67/2, p16/2 ? Copies To: ??(Continued) ?? Niall Pearson MD ?? [facility] ?? [address] [facility] [address] ?? [place] [address] ?? [phone] ----- ------- Signed (signature on file) Sejal Romero MD 04/17/24 2425 ? ----- ------- ? END OF REPORT ? us Generic External Data Provider LAB BLOOD ORDERAB LES Final Result [facility] [address] [place] [address] [phone] documented in this encounter Visit Diagnoses Not on filedocumented in this encounter Care Teams Chemist Internship Relationship Specialty Start Date End Date Cristy Monet MD [address] [place] [phone] PCP - General Family Medicine 12/12/19 documented as of this encounter
--- OUTSIDE RECORDS SUMMARY | 2024-05-05 15:25 | XMS_ITS | Encounter Summary ---
Author Organization [employer] Address [address] [place] [address] Care Team Providers Care Mint Machine Operator Name Role Phone Critsy Monet MD Primary Care Provider + Reason for Visit * Reason Comments Med Refill Encounter Details Date Type Department Care Team ([facility] st Contact Info) Description 02/03/2024 Refill [facility] [address] [place], [place] [phone] Niru Oakes MD [address] [place] [address] Resistant hypertension Social History Tobacco Use Types [...] Description 05/14/2024 10:30 AM EDT Medication Management [facility] [address] [place] [phone] Sung Rand, PharmD [address] [place] [phone] 06/12/2024 9:00 AM EDT Office Visit [facility] [address] [place] [phone] Cristy Monet MD [address] [place] [phone] documented as of this encounter Visit Diagnoses Diagnosis Resistant hypertension documented in this encounter Care Teams Mint Machine Operator Relationship Specialty Start Date End Date Cristy Monet MD [address] [place] [phone] PCP - General Family Medicine 12/12/19 documented as of this encounter
== END 2024-05-05 13:33 | disposition home or self-care (01) ==
LOC: HO.HID 13:09
PROVIDERS: PCP Internal Medicine; Visit Provider Internal Medicine
DX: R76.11 Nonspecific reaction to tuberculin skin test without active tuberculosis (principal)
CPT/HCPCS: 99213

== ENCOUNTER → 2024-05-05 13:09 | Outpatient (BNVA) | payer OTHER, SELFPAY | PROVIDERS: PCP Internal Medicine; Visit Provider Internal Medicine | DX: R76.11 Nonspecific reaction to tuberculin skin test without active tuberculosis (principal) | CPT/HCPCS: 99212 ==

== ENCOUNTER 2024-06-12 10:33 | Outpatient (AMB) | payer OTHER, SELFPAY ==
--- NOTE | 2024-06-12 10:34 | A.OFFVIS_ITS ---
Intake Visit Reasons: post op Powder Coat Painter Required: Yes Powder Coat Painter Language: Renal Medicine Physician Services: Powder Coat Painter Present (in person) Powder Coat Painter Name: Magalie WEISS Allergies No Known Allergies Allergy (Mild, Verified 05/05/24 13:20) HPI Comments Details: The patient is schedule telehealth visit post LEEP cone with post cone ECC for AZALIA 2. Doing well with no complaints no pelvic pain or vaginal bleeding or any other concerns. The pathology showed the following: A. Cervical cone, excision: High-grade squamous intraepithelial lesion (AZALIA 2); ectocervical and endocervical margins are uninvolved. B. Endocervix, excision: Benign endocervical mucosa with previous biopsy site changes; negative for squamous intraepithelial lesion. C. Endocervix, curettage: Fragments of benign endocervical glands; negative for squamous intraepithelial lesion PFSH Medical History Long-term use of Plaquenil Seronegative rheumatoid arthritis Positive TB test Encounter before starting medication Smoker unmotivated to quit Inflammatory arthritis Bilateral hand swelling Joint pain in both hands High blood cholesterol HTN (hypertension) Surgical History Hx of esophagogastroduodenoscopy Hx of colonoscopy Social History Household Members Other:: lives alone Are you a primary residential care facility manager to a significant other at home: No Do you presently have visiting nurse or other home services: No Alcohol intake: current Alcohol intake frequency: holidays/special occasions only Alcohol type: beer Patient Tobacco Use Status: Current everyday Tobacco user Tobacco use type: Cigarette Cigarette Packs Per Day: 1 Cigarettes Per Day: 6 Second Hand Smoke Exposure: No Substance Use Type: Marijuana Review of Systems Const All systems reviewed & are unremarkable except as noted in HPI and below Reports as per HPI and Reports no additional complaints GI Reports no additional complaints Reports no additional complaints Telehealth Telehealth Telehealth Platform: Telephone Location of provider rendering services: practice address Location of patient: address on file Patient Identification confirmed using: Name, : Yes Telehealth method: video Patient verbally consented to treatment: Yes Patient verbally consented to billing insurance company: Yes Patient informed of any privacy concerns related to visit: Yes Minutes spent on Phone/Video with Pt.: 7 Assessment & Plan Assessment & Plan (1) AZALIA II (cervical intraepithelial neoplasia II): Comment: Status of LEEP cone with post cone ECC, AZALIA 2 with negative margin Code(s): N87.1 - Moderate cervical dysplasia Category: Medical Plan: Discussed with the patient the procedure and the pathology of the LEEP. Instructions given to the patient to schedule an HPV based screening in 6 months, if normal then co testing Q year x 3 , if wnl cotest q3 x 25 years check the results and treat accordingly. All questions answered patient verbalized understanding. I spent a total of 20 minutes reviewing the chart, talking to the patient via video and documenting in the medical record. Coding Level of Care Code Tele Est Pt Level 3 (13555) Diagnoses AZALIA II (cervical intraepithelial neoplasia II) N87.1
--- OUTSIDE RECORDS SUMMARY | 2024-06-12 12:29 | XMS_ITS | Encounter Summary ---
Author Organization [employer] Address [address] [place] [address] Care Team Providers Care Fur Blower Name Role Phone Cristy Monet MD Primary Care Provider + Sung Rand PharmD Unavailable [phone] Reason for Visit * Reason Comments Med Refill Encounter Details Date Type Department Care Team ([facility] Contact Info) Description 02/03/2024 Refill [facility] [address] [place], [place] [phone] Niru Oakes MD [address] [place] [address] Resistant hypertension Social History Tobacco Use Types [...] Care Team (Late st Contact Info) Description 08/12/2024 2:00 PM EDT Telemedicine [facility] [address] [place] [phone] Sung aRnd PharmD [address] [place] [phone] 08/22/2024 10:30 AM EDT Office Visit [facility] [address] [place] [phone] Cristy Monet MD [address] [place] [phone] documented as of this encounter Visit Diagnoses Diagnosis Resistant hypertension documented in this encounter Care Teams Fur Blower Relationship Specialty Start Date End Date Cristy Monet MD [address] [place] [phone] PCP - General Family Medicine 12/12/19 Sung Rand, DaeD [address] [place] [address] [phone] Pharmacist Internal Medicine 05/27/24 documented as of this encounter
--- OUTSIDE RECORDS SUMMARY | 2024-06-12 12:29 | XMS_ITS | Encounter Summary ---
Author Organization [employer] [facility] Address [address] [place] [address] [address]t [place] [address] Care Team Providers Care Photography Instructor Name Role Phone Cristy Monet MD Primary Care Provider + Sung Rand PharmD Unavailable [phone] Encounter Details Date Type Department Care Team (Late st Contact Info) Description 03/28/2022 Orders Only [facility] [address] [place] [phone] Odilia Smiley LPN Social History Tobacco Use [...] Info) Description 08/12/2024 2:00 PM EDT Telemedicine [facility] [address] [place] [phone] Sung Rand, PharmD [address] [place] [address] 08/22/2024 10:30 AM EDT Office Visit [facility] [address] [place] [phone] Cristy Monet MD [address] [place] [address] documented as of this encounter Visit Diagnoses Not on filedocumented in this encounter Care Teams Photography Instructor Relationship Specialty Start Date End Date Cristy Monet MD [address] [place] [address] PCP - General Family Medicine 12/12/19 Sung Rand, Bill [address] [place] [address] Pharmacist Internal Medicine 05/27/24 documented as of this encounter
--- OUTSIDE RECORDS SUMMARY | 2024-06-12 12:29 | XMS_ITS | Encounter Summary ---
Author Organization [employer] [facility] Address [address] [place] [address] [address] [place] [address] Care Team Providers Care License Inspector Name Role Phone Cristy Monet MD Primary Care Provider + Sung Rand PharmD Unavailable [phone] Encounter Details Date Type Department Care Team (Late st Contact Info) Description 03/24/2022 Telephone [facility] [address] [place] [phone] Kalina Page RN Social History Tobacco Use Types Packs/Day Years [...] Info) Description 08/12/2024 2:00 PM EDT Telemedicine [facility] [address] [place] [address] [phone] Sung Rand, PharmD [address] [place] [phone] 08/22/2024 10:30 AM EDT Office Visit [facility] [address] [place] [phone] Cristy Monet MD [address] [place] [phone] documented as of this encounter Visit Diagnoses Not on filedocumented in this encounter Care Teams License Inspector Relationship Specialty Start Date End Date Cristy Monet MD [address] [place] [address] PCP - General Family Medicine 12/12/19 Sung Rand, DaeD [address] [place] [address] Pharmacist Internal Medicine 05/27/24 documented as of this encounter
--- OUTSIDE RECORDS SUMMARY | 2024-06-12 12:29 | XMS_ITS | Clinical Summary ---
Author Organization [employer] Address [address] [facility] 7t [place] [address] Care Team Providers Care Railroad Conductor Name Role Phone Cristy Monet MD Primary Care Provider + Sung Rand PharmD Unavailable [phone] Allergies Active Allergy Reactions Criticality Noted Date [...] 18 g 3 06/27/19 24 025 Active Umeclidinium [place] (Incruse Ellipta) 62.5 MCG/ACT aerosol powder Inhale [...] MORNING 90 tablet 1 03/03/20 24 Active metoprolol tartrate (Lopressor) 25 MG tabletIndication s:HTN (hypertension), benign TAKE 1 TABLET BY MOUTH TWICE DAILY IN THE MORNING AND IN THE EVENING 180 tablet 2 05/30/19 25 Active cloNIDine (Catapres) 0.1 MG tabletIndication s:Resistant hypertension TAKE 1 TABLET BY MOUTH TWICE DAILY IN THE MORNING AND IN THE EVENING 60 tablet 06/11/19 25 Active omeprazole (PriLOSEC) [address] capsule TAKE 1 CAPSULE BY MOUTH TWICE DAILY IN THE MORNING AND IN THE EVENING BEFORE MEALS 60 capsule 06/11/19 25 Active metoprolol tartrate (Lopressor) 25 MG tabletIndication s:HTN (hypertension), benign Take 1 tablet (25 mg) by mouth 2 times daily. 180 tablet 2 09/17/19 24 025 Discontinued cloNIDine (Catapres) 0.1 MG tabletIndication s:Resistant hypertension TAKE 1 TABLET BY MOUTH TWICE DAILY IN THE MORNING AND IN THE EVENING 60 tablet 05/10/19 25 025 Discontinued omeprazole (PriLOSEC) [address] capsule TAKE 1 CAPSULE BY MOUTH TWICE DAILY IN THE MORNING AND IN THE EVENING BEFORE MEALS 60 capsule 05/10/19 25 025 Discontinued Active Problems Problem Noted [...] get labs done today and f/u with unix system administrator Assessment & Plan (06/27/2023 9:57 AM EDT): [...] WRITTEN ON 03/15/2023 10:37 AM BY ARIELLA JAY Pt seems to be asymptomatic I will refer to rheumatology in [facility] to improve compliance w/ appointment Assessment & [...] Encounters Date Type Department Care Team Description 06/10/2024 Refill [facility] [address] [place] [address] Cristy Monet MD Resistant hypertension 06/09/2024 Orders Only [facility] [address] [place] [address] Ida Augustin MD 05/29/2024 Refill [facility] [address] [place] [address] Cristy Monet MD HTN (hypertension), benign 05/20/2024 Travel 05/09/2024 Refill [facility] [address] [place] [address] Cristy Monet MD Resistant hypertension 05/02/2024 Orders Only GENERIC EXTERNAL DATA DEPARTMENT Provider, Generic External Data 04/17/2024 Orders Only [facility] [address] [place] [address] Ida Augustin MD 04/17/2024 Telephone [facility] [address] [place] [address] Cristy Monet MD No Show 04/15/2024 Orders Only [facility] [address] [place] [address] Cristy Monet MD 04/11/2024 Orders Only GENERIC EXTERNAL DATA DEPARTMENT Provider, Generic External Data 04/10/2024 Refill [facility] [address] [place] [address] Olivia Ferguson MD Resistant hypertension 03/26/2024 Telephone [facility] [address] [place] [address] Cristy Monet MD telephone call from Last 3 Months Immunizations Name Administration Dates Next Due Hep B, adult 01/30/2006,12/26/2005 Influenza Injectable Quadriv alant Preservative Free IIV4 MDCK 01/12/2020 Influenza injectable quadriv alent IIV4 with preservative 11/21/2018,11/30/2016,12/06/2015 Influenza injectable quadriv alent preservative free 03/15/2023,03/22/2018 Influenza, IIV3, injectable 11/08/2010 Influenza, Injectable, MDCK, preservative free 01/01/2015 Influenza, Split (incl. meghan fied surface antigen) 12/11/2011 Influenza, seasonal, injecta ble, preservative free 01/20/2014 Pfizer Covid-19 Vaccine 12+ 01/04/2021, Pneumococcal Polysaccharide PPSV23 08/11/2012,,10/17/2007 TD (adult), 2 Lf tetanus tox oid, preservative free, adsorbed 05/25/2004 Tdap 10/31/2022,12/11/2011 Zoster, Recombinant 10/31/2022 Social History Tobacco Use Types Packs/Day Years Used Date Smoking Tobacco: Every Day Cigarettes Passive Smoke Exposure: Current Smokeless Tobacco: Never Tobacco Cessation:Ready to Q uit: No; Counseling Given: Not Answered Comments:11/30/2023 patient is not interested in smoking cessation at this time, 05/20/2024 Patient still not interested in Cessation Alcohol Use Standard Drinks/Week Comments Yes 0 [...] Sign Reading Time Taken Comments Blood Pressure 116/75 05/20/2024 1:58 PM EDT [employer] [facility] Monitor Pulse 52 05/20/2024 1:58 PM EDT Temperature 36.7 ??C (98 ??F) 01/04/2024 2:2 3 PM EDT Respiratory Rate 14 01/14/2024 1:13 PM EST Oxygen Saturation 99% 01/14/2024 1:1 3 PM EST Inhaled Oxygen Concentration - - Weight 52.2 kg (115 lb) 01/14/2024 1:13 PM EST Height 160 cm (5' 3 ) 01/14/2024 1:13 PM EST Body Mass Index 20.37 01/14/2024 1:13 PM EST Plan of Treatment Upcoming Encounters Date Type Department Care Team (Late st Contact Info) Description 08/12/2024 2:00 PM EDT Telemedicine [facility] [address] [place] [address] [phone] Sung Rand, PharmD [address] [place], [place] [phone] 08/22/2024 10:30 AM EDT Office Visit [facility] [address] [place] [phone] Cristy Monet MD [address] [place], [place] [phone] Health Maintenance Due Date Last Done Comments [...] 2) 12/26/2022 10/31/2022 COVID-19 Vaccine (3 - season) 2023 01/04/2021, 12/14/2020 Influenza Vaccine (#1) 2023 , 01/12/2020, 11/21/2018, Additional history exists SDOH Screening 06/04/2024 06/05/2023 Depression Screening 09/16/2024 09/17/2023, 09/17/19 Diagnostic Breast Imaging 10/13/20242024, 10/10/2023, 07/07/2022 HPV/Cotest 10/17/2024 10/18/2023, 08/07/2022 Pap Smear 10/17/2024 10/18/2023, 06/07/2022, 08/07/2022, Additional history exists Tobacco Screening 05/27/2025 05/27/2024 Lipid Panel 12/18/2028 12/19/2023, 0704/2022, 05/04/2021 Colonoscopy 12/24/2028 12/25/2023 Colorectal Cancer Screening [...] Procedure Name Priority Date/Time Associated Diagnosis Comments BIOPSY CERVIX Routine 05/02/2024 11:47 AM EST HEMATOXYLIN AND EOSIN STAIN Routine 05/02/2024 7:49 AM EST BI MAMMOGRAM DIAGNOSTIC TOMOSYNTHESIS BILATERAL Routine 04/15/2024 [...] Recently Relevant to Health Maintenance Results * Biopsy cervix (05/02/2024 11:47 AM EST) us Historical Provider MD IN CLINIC/BEDSIDE ORDERAB LES Final Result * Hematoxylin and Eosin Stain (05/02/2024 7:49 AM EST) Only the most recent of2 resultswithin the time period is included. 05/02/2024 7:49 AM EST 05/02/2024 8:33 AM EST Narrative [facility] - 05/06/2024 9:57 AM EST ----- ------- Name: Delilah Sevilla ? Age/Sex: 68/F ? : 1955 Unit#: [id number] ?? Attend Dr: Niall Pearson MD ?Re05/02/24 ?Status: DEP SDC ? Location: HO.SSS ?Disch: ? ----- ------- SPEC : [id number] ? RECD: 05/02/24 ? STATUS: ??SOUT ? REQ NUM: [id number] ? ADELAIDE: 05/02/24 ? SUBM DR: Niall Pearson MD ? ENTERED: ??05/02/24 ?SP TYPE: Surgical ? OTHR DR: Cristy Monet MD ? ORDERED: ??HE Stain/6, Gross Micro L4/3 ? Diagnosis ?? A. ??Cervical cone, excision: ??High-grade squamous intraepithelial lesion (AZALIA 2); ?? ectocervical and endocervical margins are uninvolved. ? B. ??Endocervix, excision: ??Benign endocervical mucosa with previous biopsy site changes; ?? negative for squamous intraepithelial lesion. ? C. ??Endocervix, curettage: ??Fragments of benign endocervical glands; negative for ?? squamous intraepithelial lesion. ?Clinical History Moderate cervical dysplasia ?Microscopic Description Microscopic sections reviewed. ? Material Received ?? A. Cervical cone stitch at 12 o'clock ?? B. Endocervix ?? C. Post cone ECC ? Gross Description A. ??Received in formalin labeled cervical cone stitch at 12 is a 2.5 x 1.5 x 0.6 cm oriented LEEP specimen with a suture designating 12 o'clock. The ectocervical margin is inked blue, endocervical margin is inked black. The specimen is radially sectioned in a clockwise fashion and entirely submitted as follows: A1: ??12 o'clock to 3 o'clock A2: ??3 o'clock to 9 o'clock A3: ??9 o'clock to 12 o'clock B. ??Received in formalin labeled endocervix is a 3.0 x 1.5 x 0.5 cm tissue fragment with a 0.3 x 0.2 cm mucosal surface. The specimen is inked black and serially sectioned and entirely submitted into cassettes B1-B3. C. ??Received in formalin labeled post cone ECC is as 0.5 x 0.3 cm aggregate of thin white wispy tissue and mucin, entirely filtered and submitted in cassette C1. ? CONTINUED ON NEXT PAGE ----- ------- Name: Delilah Sevilla ? Age/Sex: 68/F ? : 1955 Unit#: [id number] ?? Attend Dr: Niall Pearson MD ?Re05/02/24 ?Status: DEP SDC ? Location: HO.SSS ?Disch: ? ----- ------- SPEC : [id number] ? RECD: 05/02/24 ? STATUS: ??SOUT ? REQ NUM: [id number] ? ADELAIDE: 05/02/24 ? SUBM DR: Niall Pearson MD ? ENTERED: ??05/02/24 ?SP TYPE: Surgical ? OTHR DR: Cristy Monet MD ? ORDERED: ??HE Stain/6, Gross Micro L4/3 ? Copies To: ?? Cristy Monet MD ?? [facility] ?? [address] ?? [place] [address] ?? [phone] ?? Niall Pearson MD ?? [facility] ?? [address] [facility] [address] ?? [place] [address] ?? [phone] ----- ------- Signed (signature on file) Sejal Romero MD 05/06/24 0957 ? ----- ------- ? END OF REPORT ? us Generic External Data Provider LAB BLOOD ORDERAB LES Final Result [facility] [address] [place] [phone] * BI Mammogram Diagnostic Tomosynthesis Bilateral (04/15/2024 10:00 AM EST) Anatomical Region Laterality Modality Breast Bilateral Mammography 04/15/2024 10:0 0 AM EST Narrative 04/15/2024 10:44 AM EST ? [facility] [place] ? [address] [facility] ?[place] [address] ? Mammography Report ? Signed ? Patient: Roel,Delilah ?MR#: [id number] ?? 41 ? : 1955 ?Acct:[id number] ? Age/Sex: 68 / F ?ADM Date: 02/11/25 ? Loc: HO.MAMMO ? Attending Dr: Cristy Monet MD ? Ordering Physician: Cristy Monet MD ?Results: 3.6MProbably Benign Finding - Short 6 M F/U ?? Suggested ? Date of Service: 04/15/24 ?Follow Up: 6 Month F/U ? Procedure(s): MM tomosynthesis diagnostic BI ?? Accession Number(s): [id number] ? cc: Cristy Monet MD ? EXAMINATION: [...] DD/ 1000 ? TD/TT: 04/15/24 1036 ? Information Assurance Engineer: ? Procedure Note Shashi Buckner - 04/15/2024 [facility] [address] [place], [place] [address] Mammography Report Signed Patient: Delilah SevillaMR#: [id number] 39 : 8Acct:[id number] Age/Sex: 68 / FADM Date: 04/15/24 Loc: HO.MAMMO Attending Dr: Cristy Monet MD Ordering Physician: Cristy Monet MD Results: 3.6MProbably Benign Finding - Short 6 M F/U Suggested Date of Service: 04/15/24Follow Up: 6 Month F/U Procedure(s): MM tomosynthesis diagnostic BI Accession Number(s): [id number] cc: Cristy Monet MD EXAMINATION: MM DIAGNOSTIC [...] 04/15/24 1041 DD/ 1000 TD/TT: 04/15/24 1036 Information Assurance Engineer: Cristy Monet MD IMG BI PROCEDURES Final Result * Colposcopy (04/14/2024 3:06 PM EST) Historical Provider IN CLINIC/BEDSIDE ORDERAB LES Final Result * (ABNORMAL) Hm Colonoscopy (12/25/2023) Colonoscopy Abnormal( A) Normal [facility] Comment:TA + hyperplastic po lyps Cristy Monet MD HEALTH MAINTENANCE Final Result [facility] [address] [place] [address] [phone] * (ABNORMAL) Lipid Panel, Standard (12/19/2023 9:22 AM EDT) Triglycerides 79 <150 mg/dL [facility] Comment:Desirable Triglyceri de: less than 150 mg/dLBorderline High Triglyceride 150-199 mg/dLHigh Triglyceride: 200-499 mg/dLVery High Triglyceride: greater than or equal to 5OO mg/dL Cholesterol 224(H) <200 mg/dL [facility] Comment:Desirable Cholestero l: less than 200 mg/dLBorderline High Cholesterol: 200-239 mg/dLHigh Cholesterol: greater than 239 mg/dL LDL Cholesterol Calculated 117(H) <100 mg/dL [facility] Comment:Desirable LDL: less than 100 mg/dLNear Optimal/Above Optimal LDL: 110- 129 mg/dLBorderline High LDL: 130-159 mg/dLHigh LDL: 160-189 mg/dLVery High LDL: greater than or equal to 190 mg/dL HDL Cholesterol 92 >40 mg/dL [facility] Comment:Desirable HDL: great er than 40 mg/dL Note: This HDL assay may give artificially low results in patients with liver disease. 12/19/2023 9:22 AM EDT 12/19/2023 11:43 AM EDT Cristy Monet MD LAB BLOOD ORDERABLES Fin al Result Performing Organization Address [facility] Co de Phone Number [facility] [address] [place] [address] [phone] * Hepatitis Panel, General (12/04/2023 9:36 AM EDT) Hepatitis A IgM Nonreactive Nonreactive [facility] Comment:IgM antibodies to MARTINES V not detected; does not exclude earlyacute or recovered HAV infection. ~Hepatitis B Surface Antibody REACTIVE Nonreactive [facility] Comment:REACTIVE: > 11.99 m IU/mL Hepatitis B Core Antibody Nonreactive Nonreactive [facility] Hepatitis C Antibody Nonreactive Nonreactive [facility] Comment:Antibodies to HCV no t detected; does not exclude early acuteHCV infection. Hepatitis B Surface Ag Negative Negative [facility] Blood 12/04/2023 9:36 AM EDT 12/04/2023 11:01 AM EDT us Cristy Monet MD LAB BLOOD ORDERABLES Fin al Result [facility] [address] [place] [address] [phone] * (ABNORMAL) ThinPrep?? Imaging Pap Refl HPV mRNA(if ASCUS,ASC- H,LSIL,HSIL,TWILA)Refl Genotype (10/18/2023 10:43 AM EDT) HPV nRNA E6/E7 Detected(A ) Not Detected [facility] Comment:Methodology: Transcr iption-Mediated AmplificationThis assay detects E6/E7 viral messenger RNA (mRNA) from 14high-risk HPV types (16,18,31,33,35,39,45,51,52,56,58,59,66,68).Cervical sources are required for HPV testing.If a vaginal source from a patient who has had atotal hysterectomy with removal of cervix wassubmitted, please contact the testing laboratoryfor alternative testing options.For additional information, please refer tohttp://education.vogogo/faq/ZLC779l5(This link if provided for information/educational purposes only.)THIS TEST WAS PERFORMED AT:[facility] [place] [phone] MEDINA MD HPV 16,18/45 NOT DETECTED NOT DETECTED [facility] Comment:Methodology: Transcr iption Mediated AmplificationCervical sources are required for HPV testing.If a vaginal source from a patient who has had atotal hysterectomy with removal of cervix wassubmitted, please contact the testing laboratoryfor alternative testing options.THIS TEST WAS PERFORMED AT:[facility] [place] [phone] MEDINA MD SOURCE: SEE NOTE [facility] Comment:None given Report Status: [facility] Clinical Information: SEE NOTE [facility] Comment:None given LMP: SEE NOTE [facility] Comment:NONE GIVEN Prev. PAP: SEE NOTE [facility] Comment:NONE GIVEN Prev. BX: SEE NOTE [facility] Comment:NONE GIVEN Statement Of Adequacy: SEE NOTE [facility] Comment:Satisfactory for naheed luation.Endocervical/transformation zone componentpresent. General Categorization: SEE NOTE(A) [facility] Comment:Cytology Results: Ep ithelial Cell Abnormality Interpretation/Result: SEE NOTE(A) [facility] Comment:Atypical Squamous Ce lls of UndeterminedSignificance (ASC-US) Cytology Comment SEE NOTE [facility] Comment:This Pap test has be en evaluated with computerassisted technology. Electroplating Technician: SEE NOTE [facility] Comment:DCR, CT(ASCP)CT scre ening location: [place] [address] Review Electroplating Technician: [facility] Pathologist SEE NOTE [facility] Comment:Valerio Romero M.D./M.S .,Board Certified in Anatomic Pathology andBoard Eligible Cytopathology(electronic signature)Consulting Pathologist[address] [phone] PAP Infection [facility] See Note SEE NOTE [facility] Comment:EXPLANATORY NOTE:The Pap is a screening test for cervical cancer. It isnot a diagnostic test and is subject to false negativeand false positive results. It is most reliable when asatisfactory sample, regularly obtained, is submittedwith relevant clinical findings and history, and whenthe Pap result is evaluated along with historic andcurrent clinical information.THIS TEST WAS PERFORMED AT:[facility] [facility] [facility] [place] [phone] REYEZ MD 10/18/2023 10:4 3 AM EDT 10/18/2023 4:30 PM EDT Narrative [facility] - 10/31/2023 11:52 AM EDT SEE SCANNED RESULTS IN EMR Cristy Monet MD LAB CYTOLOGY ORDERABLES Final Result [facility] [address] [place] [address] [phone] from Last 3 Months or Most Recently Relevant to Health Maintenance Insurance [facility] Care Teams Railroad Conductor Relationship Specialty Start Date End Date Cristy Monet MD [address] [place] [address] PCP - General Family Medicine 12/12/19 Sung Rand, DaeD [address] [place] [address] Pharmacist Internal Medicine 05/27/24
--- OUTSIDE RECORDS SUMMARY | 2024-06-12 12:29 | XMS_ITS | Encounter Summary ---
Author Organization [employer] Address [address] [facility] 7t [place] [address] Care Team Providers Care Recovery Room Nurse Name Role Phone Cristy Monet MD Primary Care Provider + Sung Rand PharmD Unavailable [phone] Reason for Visit * Reason Comments Med Refill Encounter Details Date Type Department Care Team ([facility] Contact Info) Description 01/14/2024 Refill [facility] [address] [place], [place] [phone] Cristy Monet MD [address] [place], [place] [phone] Social History Tobacco Use Types Packs/Day Years [...] Info) Description 08/12/2024 2:00 PM EDT Telemedicine [facility] [address] [place] [phone] Sung Rand, Bill [address] [place] [phone] 08/22/2024 10:30 AM EDT Office Visit [facility] [address] [place] [phone] Cristy Monet MD [address] [place] [phone] documented as of this encounter Visit Diagnoses Not on filedocumented in this encounter Care Teams Recovery Room Nurse Relationship Specialty Start Date End Date Cristy Monet MD [address] [place] [phone] PCP - General Family Medicine 12/12/19 Sung Rand, Bill [address] [place] [phone] Pharmacist Internal Medicine 05/27/24 documented as of this encounter
--- OUTSIDE RECORDS SUMMARY | 2024-06-12 12:29 | XMS_ITS | Encounter Summary ---
Author Organization [employer] [facility] Address [address] [place] [address] 7t [place] [address] Care Team Providers Care Global Security Architect Name Role Phone Cristy Monet MD Primary Care Provider + Sung Rand PharmD Unavailable [phone] Encounter Details Date Type Department Care Team (Late st Contact Info) Description 07/07/2022 Orders Only [facility] [address] [place] [phone] Odilia Smiley LPN Social History Tobacco Use [...] Info) Description 08/12/2024 2:00 PM EDT Telemedicine [address] [address] Sung Rand, PharmD [address] [place] [address] 08/22/2024 10:30 AM EDT Office Visit [facility] [address] [place] [phone] Cristy Monet MD [address] [place] [address] documented as of this encounter Procedures Procedure Name Priority Date/Time Associated Diagnosis Comments BI MAMMOGRAM SCREENING TOMOSYNTHESIS BILATERAL Routine 07/07/2022 1:05 PM EDT documented in this encounter Results * BI Mammogram Screening Tomosynthesis Bilateral (07/07/2022 1:05 PM EDT) Anatomical Region Laterality Modality Breast Bilateral Mammography 07/07/2022 1:05 PM EDT Narrative 07/10/2022 1:12 PM EDT ? [facility] [place] ? [address] ?[place], [place] [address] ? Mammography Report ? Signed ? Patient: Roel,Delilah ?MR#: [id number] ?? 41 ? : 1955 ?Acct:[id number] ? Age/Sex: 66 / F ?ADM Date: 07/07/22 ? Loc: HO.MAMMO ? Attending Dr: Cristy Monet MD ? Ordering Physician: Cristy Monet MD ?Results: 2Be ?? nign Findings ? Date of Service: 07/07/ ?Follow Up: 1 Year From Orig ?? inal Mammogram ? Procedure(s): MM tomosynthesis screening BI ?? Accession Number(s): [id number] ? cc: Cristy Monet MD ? EXAMINATION: [...] MD in OV> ?07/10/22 1309 ? DD/ 04 ? TD/TT: ? Export Packer: ACOSTA ? Procedure Note Shashi Buckner - 08/31/2022 [facility] [address] [place] [address] [place] [address] Mammography Report Signed Patient: Delilah SevillaMR#: [id number] 41 : 8Acct:[id number] Age/Sex: 66 / FADM Date: 07/07/22 Loc: HO.MAMMO Attending Dr: Cristy Monet MD Ordering Physician: Cristy Monet MDResults: 2Be nign Findings Date of Service: 07/07/22Follow Up: 1 Year From Orig inal Mammogram Procedure(s): MM tomosynthesis screening BI Accession Number(s): [id number] cc: Cristy Monet MD EXAMINATION: MM SCREENING [...] in OV> 07/10/22 1309 DD/ 1305 TD/TT: Export Packer: ACOSTA [facility] External Provider IMG BI PROCEDURES Final Result documented in this encounter Visit Diagnoses Not on filedocumented in this encounter Care Teams Global Security Architect Relationship Specialty Start Date End Date Cristy Monet MD [address] [place], [place] [phone] PCP - General Family Medicine 12/12/19 Sung Rand, DaeD [address] [place], [place] [phone] Pharmacist Internal Medicine 05/27/24 documented as of this encounter
--- OUTSIDE RECORDS SUMMARY | 2024-06-12 12:29 | XMS_ITS | Encounter Summary ---
Author Organization [employer] Address [address] [facility] 7t [place] [address] Care Team Providers Care Keg Filler Name Role Phone Cristy Monet MD Primary Care Provider + Sung Rand PharmD Unavailable [phone] Reason for Visit * Reason Comments Med Refill Encounter Details Date Type Department Care Team ([facility] Contact Info) Description 06/10/2024 Refill [facility] [address] [place], [place] [phone] Cristy Monet MD [address] [place], [place] [phone] Resistant hypertension Social History Tobacco Use Types [...] Info) Description 08/12/2024 2:00 PM EDT Telemedicine [facility] [address] [place] [phone] Sung Rand, Bill [address] [place] [phone] 08/22/2024 10:30 AM EDT Office Visit [facility] [address] [place] [phone] Cristy Monet MD [address] [place] [phone] documented as of this encounter Visit Diagnoses Diagnosis Resistant hypertension documented in this encounter Care Teams Keg Filler Relationship Specialty Start Date End Date Cristy Monet MD [address] [place] [phone] PCP - General Family Medicine 12/12/19 Sung Rand, PharmD [address] [place] [address] [phone] Pharmacist Internal Medicine 05/27/24 documented as of this encounter
--- OUTSIDE RECORDS SUMMARY | 2024-06-12 12:29 | XMS_ITS | Encounter Summary ---
Author Organization [employer] Address [address] [facility] 7t [place] [address] Care Team Providers Care Administrative Technician Name Role Phone Cristy Monet MD Primary Care Provider + Sung Rand PharmD Unavailable [phone] Encounter Details Date Type Department Care Team (Late st Contact Info) Description 09/10/2023 Telephone [facility] [address] [place], [place] [phone] Cristy Monet MD [address] [place], [place] [phone] Social History Tobacco Use Types Packs/Day Years [...] Info) Description 08/12/2024 2:00 PM EDT Telemedicine [facility] [address] [place] [address] 13048 Sung Rand, Bill [address] [place] [address] 21166 08/22/2024 10:30 AM EDT Office Visit [facility] [address] [place] [address] 46090 Cristy Monet MD [address] [place] [address] 08655 documented as of this encounter Visit Diagnoses Not on filedocumented in this encounter Care Teams Administrative Technician Relationship Specialty Start Date End Date Cristy Monet MD [address] [place] [address] [phone] PCP - General Family Medicine 12/12/19 Sung Rand, PharmD [address] [place] [address] [phone] Pharmacist Internal Medicine 05/27/24 documented as of this encounter
--- OUTSIDE RECORDS SUMMARY | 2024-06-12 12:30 | XMS_ITS | Encounter Summary ---
Author Organization [employer] Address [address] [facility] [address] 7t [place] [address] Care Team Providers Care Preparation Supervisor Name Role Phone Cristy Monet MD Primary Care Provider + Sung Rand PharmD Unavailable [phone] Encounter Details Date Type Department Care Team (Late st Contact Info) Description 06/09/2024 Orders Only [facility] [address] [place], [place] [phone] ProviderIda MD Social History Tobacco Use Types [...] Info) Description 08/12/2024 2:00 PM EDT Telemedicine [facility] [address] [place] [address] 53[address] Sung Rand, PharmD [address] [place] [address] 88302 08/22/2024 10:30 AM EDT Office Visit [facility] [address] [place] [address] [phone] Cristy Monte MD [address] [place] [address] 55791 documented as of this encounter Procedures Procedure Name Priority Date/Time Associated Diagnosis Comments BIOPSY CERVIX Routine 05/02/2024 11:47 AM EST documented in this encounter Results * Biopsy cervix (05/02/2024 11:47 AM EST) Historical Provider IN CLINIC/BEDSIDE ORDERAB LES Final Result documented in this encounter Visit Diagnoses Not on filedocumented in this encounter Care Teams Preparation Supervisor Relationship Specialty Start Date End Date Cristy Monet MD [address] [place] [address] [phone] PCP - General Family Medicine 12/12/19 Sung Rand, PharmD [address] [place] [address] [phone] Pharmacist Internal Medicine 05/27/24 documented as of this encounter
--- OUTSIDE RECORDS SUMMARY | 2024-06-12 12:30 | XMS_ITS | Encounter Summary ---
Author Organization [facility] [facility] Address [address] [place] [address] 7t [place] [address] Care Team Providers Care Microchip Specialist Name Role Phone Cristy Monet MD Primary Care Provider + Sung Rand PharmD Unavailable [phone] Encounter Details Date Type Department Care Team ([facility] Contact Info) Description 09/13/2022 Orders Only [facility] [address] [place] [address] [phone] Cristy Monet MD [address] [place] [address] [phone] Hyperkalemia (Primary Dx); Hypercalcemia Social History Tobacco [...] Department Care Team (Late Contact Info) Description 08/12/2024 2:00 PM EDT Telemedicine [facility] [address] [place] [address] [phone] Sung Rand, PharmD 230 [place], [place] [phone] 08/22/2024 10:30 AM EDT Office Visit [facility] [address] [place] [address] Cristy Monet MD 230 [place] [address] documented as of this encounter Procedures Procedure Name Priority Date/Time Associated Diagnosis Comments BASIC METABOLIC PANEL Routine 09/25/2022 8:41 AM EDT Hyperkalemia Hypercalcemia documented in this encounter Results * (ABNORMAL) Basic Metabolic Panel (09/25/2022 8:41 AM EDT) Sodium 138 135 - 145 mmol/L [facility] Potassium 5.0 3.3 - 5.1 mmol/L [facility] Chloride 102 96 - 108 mmol/L [facility] Carbon Dioxide 30(H) 22 - 29 mmol/L [facility] Anion Gap 11(L) 12 - 20 [facility] Urea Nitrogen (BUN) 15 9 - 16 mg/dL [facility] Creatinine, Serum 0.78 0.5 - 1.4 mg/dL [facility] Estimated Glomerular Filt Rate >60 [facility] Comment:NOTE: For -Am erican individuals, multiply the result by 1.210.Chronic Kidney Disease: Estimated GFR < 60 mL/min/1.83x0Dqadku Kidney Disease: Estimated GFR < 15 mL/min/1.73m2 Glucose 96 60 - 115 mg/dL [facility] Calcium 9.6 8.4 - 10.2 mg/dL [facility] Blood Venous blood specimen / Unknown 09/25/2022 8:41 AM EDT 09/25/2022 11:03 AM EDT us Cristy Monet MD LAB BLOOD ORDERABLES Fin al Result [facility] [address] [place] [address] [phone] documented in this encounter Visit Diagnoses Diagnosis Hyperkalemia- Primary Hyperpotassemia Hypercalcemia documented in this encounter Care Teams Microchip Specialist Relationship Specialty Start Date End Date Cristy Monet MD [address] [place] [address] PCP - General Family Medicine 12/12/19 Sung Rand, Bill [address] [place] [address] 47813 Pharmacist Internal Medicine 05/27/24 documented as of this encounter
--- OUTSIDE RECORDS SUMMARY | 2024-06-12 12:30 | XMS_ITS | Encounter Summary ---
Author Organization [employer] Address [address] [facility] [address] 7[address] [place] [address] Care Team Providers Care Gear Generator Set Up Operator Name Role Phone Cristy Monet MD Primary Care Provider + Sung Rand PharmD Unavailable [phone] Encounter Details Date Type Department Care Team (Late st Contact Info) Description 04/17/2024 Orders Only [facility] [address] [place] [address] ProviderIda MD Social History Tobacco Use Types [...] Info) Description 08/12/2024 2:00 PM EDT Telemedicine [facility] [address] [place] [address] [phone] Sung Rand, PharmD [address] [place] [address] 49941 08/22/2024 10:30 AM EDT Office Visit [facility] [address] [place] [address] [phone] Cristy Monet MD [address] [place] [address] 67832 documented as of this encounter Procedures Procedure Name Priority Date/Time Associated Diagnosis Comments COLPOSCOPY Routine 04/14/2024 3:06 PM EST documented in this encounter Results * Colposcopy (04/14/2024 3:06 PM EST) Historical Provider IN CLINIC/BEDSIDE ORDERAB LES Final Result documented in this encounter Visit Diagnoses Not on filedocumented in this encounter Care Teams Gear Generator Set Up Operator Relationship Specialty Start Date End Date Cristy Monet MD [address] [place] [address] [phone] PCP - General Family Medicine 12/12/19 Sung Rand, PharmD [address] [place] [address] [phone] Pharmacist Internal Medicine 05/27/24 documented as of this encounter
== END 2024-06-12 11:12 | disposition home or self-care (01) ==
LOC: HO.HWS 10:33
PROVIDERS: PCP Internal Medicine; Visit Provider Obstetrics & Gynecology
DX: N87.1 Moderate cervical dysplasia (principal)
CPT/HCPCS: 99213

== ENCOUNTER → 2024-06-12 10:33 | Outpatient (BNVA) | payer OTHER, SELFPAY | PROVIDERS: PCP Internal Medicine; Visit Provider Obstetrics & Gynecology ==

== ENCOUNTER 2024-06-19 10:50 | Outpatient (AMB) | payer OTHER, SELFPAY ==
--- NOTE | 2024-06-19 11:07 | MHC.OFFVIS ---
Vital Signs 06/19/24 11:12 Height 5 ft 3 in Weight 117 lb 1.047 oz BMI 20.7 BP 122/80 Blood Pressure Location Rt brachial Respiration 16 Pulse 61 Pulse Source Pulse Oximeter Pulse Oximetry (%) 96 Oxygen Delivery Method Room Air Intake Visit Reasons: RA Intake Note: Patient presents today for RA follow up. Bar Waiter/Waitress Required: Yes Bar Waiter/Waitress Language: Packing Machine Tender Services: Bar Waiter/Waitress Present Bar Waiter/Waitress Name: Jorge [id number] Information Interpreted: non-clinical & clinical Allergies No Known Allergies Allergy (Mild, Verified 06/19/24 11:11) Medication List - Last Reconciled 06/19/24 by Madyson Acevedo MD aripiprazole 5 mg PO DAILY calcium carbonate-vitamin D3 500 mg-5 mcg (200 unit) (Oyster Shell Calcium-Vitamin D3) 1 tab PO BID citalopram 20 mg PO DAILY hydrochlorothiazide 25 mg PO DAILY hydroxychloroquine (Plaquenil) 200 mg PO BID 90 days ipratropium-albuterol 20-100 mcg/actuation (Combivent Respimat) inhalation isoniazid 300 mg PO DAILY 30 days losartan 100 mg PO DAILY metoprolol tartrate 25 mg PO BID pravastatin 40 mg PO DAILY pyridoxine (vitamin B6) 50 mg PO DAILY 30 days zolpidem 5 mg PO BEDTIME PRN HPI Comments Details: Patient is a 68-year-old female with hypertension, hyperlipidemia and latent TB who is here today for follow up of seronegative rheumatoid arthritis Interval History: Patient last seen 03/14/2024 with me. At that time she was on isoniazid and vitamin B6 for latent TB. She was started on Plaquenil for her inflammatory arthritis Rheumatologic History: Establish care 06/2023 for the treatment of inflammatory arthritis. Serologies were overall negative however she had evidence of synovitis on examination. Lab work revealed positive TB test and she was started on latency TB treatment (chest x-ray was normal) 01/2024. 03/2024: Started Plaquenil Current Rheumatology Medication(s): Plaquenil 200 mg daily Sunday to Sunday and twice a day Sunday and Sunday [facility] Medical History Long-term use of Plaquenil Seronegative rheumatoid arthritis Positive TB test Encounter before starting medication Smoker unmotivated to quit Inflammatory arthritis Bilateral hand swelling Joint pain in both hands High blood cholesterol HTN (hypertension) Surgical History Hx of esophagogastroduodenoscopy Hx of colonoscopy Social History Household Members Other:: lives alone Are you a primary pharmacist critical care to a significant other at home: No Do you presently have visiting nurse or other home services: No Alcohol intake: current Alcohol intake frequency: holidays/special occasions only Alcohol type: beer Patient Tobacco Use Status: Current everyday Tobacco user Tobacco use type: Cigarette Cigarette Packs Per Day: 1 Cigarettes Per Day: 6 Second Hand Smoke Exposure: No Substance Use Type: Marijuana Review of Systems Const Details: Review of Systems Constitutional: Denies fever, chills, weight loss ENT: Denies vision changes, eye pain or eye redness, dental caries, dry mouth GI: Denies nausea, vomiting, diarrhea, abdominal pain, change in BM Pulm: Denies SOB, ABEBE, hemoptysis, wheezing Cards: Denies chest pain, palpitations Skin: Denies Raynaud's, rash, nail changes, photosensitivity, DONATION WORKER: Denies headaches, weakness, paresthesias, recurrent falls MSK: as per HPI All other systems reviewed and are unremarkable except noted above Physical Exam Vital Signs: Last Vital Signs Pulse 61 06/19/24 11:12 Resp 16 06/19/24 11:12 BP 122/80 06/19/24 11:12 Pulse Ox 96 06/19/24 11:12 Oxygen Delivery Method Room Air 06/19/24 11:12 BMI result Body Mass Index 20.7 Vital signs reviewed Physical Examination CONSTITUITIONAL Patient alert and cooperative. Well appearing and in no apparent painful distress HEENT Conjunctiva and sclera clear. ?Pupils equal round and reactive to light. ?No lymphadenopathy. ? CHEST/RESPIRATORY SYSTEM Normal respiratory effort and able to speak in complete sentences. ?Clear to auscultation bilaterally. ?No crackles, rales, rhonchi, wheezes heard. CARDIAC SYSTEM Regular rate and rhythm. ?S1 and S2 heard no murmurs. ?Radial pulses intact bilaterally MSK Hands: ?Able to make a fist bilaterally. ulnar deviation at the MCPs bilaterally with TTP of the 2nd MCP bilaterally. No other tender joints in the hands Wrists: ?Full range of motion at the wrists without pain. ?No tenderness to palpation or synovitis noted to the wrists. Elbows: Full range of motion without pain. No tenderness, weakness, swelling, increased warmth or erythema. Shoulders: Full range of motion without pain. No tenderness, weakness, swelling, increased warmth or erythema. Knees: ?Full range of motion. ?No tenderness, swelling, increased warmth or erythema.?No effusion or crepitations Ankles: Full range of motion. ?No tenderness, swelling, increased warmth or erythema.? Feet: ?Negative squeeze test. ?No tenderness to palpation or swelling of the MTPs. Tender points:?No tenderness to palpation of the bilateral trapezius, supraspinatus, greater trochanters, anterior costochondral junctions, bilateral gluteal areas, bilateral suboccipital muscle insertions SKIN Skin intact without rashes. Results Reviewed Results Reviewed: Laboratory Tests 07/18/23 11/14/23 12/04/23 10:01 17:25 09:36 WBC 7.9 RBC 4.02 L Hgb 13.8 Hct 37.5 Plt Count 326 ESR 10 Sodium Potassium Chloride Carbon Dioxide BUN Creatinine AST 20 ALT 11 Alkaline Phosphatase 116 12/19/23 09:22 WBC RBC Hgb Hct Plt Count ESR Sodium 131 L Potassium 4.7 Chloride 97 Carbon Dioxide 23 BUN 22 H Creatinine 0.93 AST ALT Alkaline Phosphatase Immunology labs 11/26/18 07/18/23 07/18/23 09:05 09:20 10:01 Rheumatoid Factor < 13.0 Cycl Citrul Peptide IgG <16 PATRICK Screen POSITIVE A PATRICK Titer 1:80 H PATRICK Pattern Nuclear, Speckled A Sm (Cifuentes) Antibody <1.0 SmRNP Antibodies <1.0 SS-A/Ro Antibody <1.0 NEG SS-B/La Antibody <1.0 NEG Scl-70 Scleroderma Ab <1.0 NEG Double Strand DNA Ab <1 Centromere B Antibody <1.0 NEG Complement C3 100 Complement C4 19 Assessment & Plan Assessment & Plan (1) Seronegative rheumatoid arthritis: Comment: Seronegative RA vs Undifferentiated CTD. Synovitis, reducible ulnar deviation (?Early RA vs Jaccouds arthropathy), Raynauds (normal capilloroscopy) Plaquenil 400mg daily 03/2024 Code(s): M06.00 - Rheumatoid arthritis without rheumatoid factor, unspecified site Category: Medical Plan: #Seronegative RA vs Undifferentiated CTD Patient is a 68-year-old female with inflammatory arthritis as evidenced by synovitis involving the MCPs. She has a ulnar deviation but this is reducible. This could be early RA or Jaccoud's arthropathy from lupus. Doing well on the Plaquenil. I would so she is at low disease activity since she has 2 tender joints. We will continue the Plaquenil monotherapy for now Plan - Plaquenil 200mg one tablet daily - and 2 tablets Sun and Sun - CBC, CMP, ESR, CRP, PATRICK, GRICEL, C3, C4, dsDNA, APS labs, UA, UPC, SSA/SSB, Scleroderma panel - RTC 4 months (2) Long-term use of Plaquenil: Code(s): Z79.899 - Other intermediate (current) drug therapy Category: Medical Plan: #Long-term Use of Hydroxychloroquine Discussed with patient the risks and benefits of hydroxychloroquine in managing the rheumatic condition Benefits include: - Reduced pain, reduce mortality, maintenance of remission and reduction of flares Risks include: - GI upset, skin hyperpigmentation, retinal toxicity (especially after more than 5 years of use), myopathy Advised yearly ophthalmology visits Plan I spent 25 minutes reviewing the record and labs, taking a history, examining the patient, discussing the treatment plan, ordering diagnostic work up and documenting in the medical record Coding Level of Care Code Est Pt Level 3 (63266) Complex EM visit Add On G2211 Diagnoses Seronegative rheumatoid arthritis M06.00 Long-term use of Plaquenil Z79.899
[2024-06-19 11:12] VITALS: BP 122/80; PULSE 61; RESP 16; O2SAT 96; BMI 20.7
--- OUTSIDE RECORDS SUMMARY | 2024-06-19 13:08 | XMS_ITS | Encounter Summary ---
Author Organization [employer] [facility] Address [address] [place] [address] 7t [place] [address] Care Team Providers Care Supervisor Litharge Name Role Phone Cristy Monet MD Primary Care Provider + Sung Rand PharmD Unavailable [phone] Encounter Details Date Type Department Care Team (Late st Contact Info) Description 03/24/2022 Telephone [facility] [address] [place] [address] [phone] Kalina Page RN Social History Tobacco Use [...] Info) Description 08/12/2024 2:00 PM EDT Telemedicine [facility] [address] [place] [address] 36173 Sung Rand, PharmD [address] [place] [address] 18392 08/22/2024 10:30 AM EDT Office Visit [facility] [address] [place] [address] 17538 Cristy Monet MD [address] [place] [address] 89919 documented as of this encounter Visit Diagnoses Not on filedocumented in this encounter Care Teams Supervisor Litharge Relationship Specialty Start Date End Date Cristy Monet MD [address] [place] [address] PCP - General Family Medicine 12/12/19 Sung Rand, DaeD [address] [place] [address] Pharmacist Internal Medicine 05/27/24 documented as of this encounter
--- OUTSIDE RECORDS SUMMARY | 2024-06-19 13:08 | XMS_ITS | Encounter Summary ---
Author Organization [employer] Address [address] [facility] [address] 7[address] [place] [address] Care Team Providers Care Director Of Agriculture Name Role Phone Cristy Monet MD Primary Care Provider + Sung Rand PharmD Unavailable [phone] Reason for Visit * Reason Comments Med Refill Encounter Details Date Type Department Care Team ([facility] Contact Info) Description 02/03/2024 Refill [facility] 230 [place], [place] [phone] Niru Oakes MD [address] [place] [address] Resistant hypertension Social History Tobacco Use Types [...] Info) Description 08/12/2024 2:00 PM EDT Telemedicine [facility] [address] [place] [address] [phone] Sung Rand PharmD [address] [place] [address] 88424 08/22/2024 10:30 AM EDT Office Visit [facility] [address] [place] [address] 64012 Cirsty Monet MD [address] [place] [address] [phone] documented as of this encounter Visit Diagnoses Diagnosis Resistant hypertension documented in this encounter Care Teams Director Of Agriculture Relationship Specialty Start Date End Date Cristy Monet MD [address] [place] [address] 58022 PCP - General Family Medicine 12/12/19 Sung Rand, DaeD [address] [place] [address] [phone] Pharmacist Internal Medicine 05/27/24 documented as of this encounter
--- OUTSIDE RECORDS SUMMARY | 2024-06-19 13:08 | XMS_ITS | Encounter Summary ---
Author Organization [employer] Address [address] [facility] [address] [place] [address] Care Team Providers Care Flight Operation Coordinator Name Role Phone Cristy Monet MD Primary Care Provider + Sung Rand PharmD Unavailable [phone] Encounter Details Date Type Department Care Team (Late st Contact Info) Description 06/09/[address] [facility] [address] [place], [place] [phone] ProviderIda MD Social History Tobacco Use Types [...] Info) Description 08/12/2024 2:[address] [facility] [address] [place] [address] [phone] Sung Rand, PharmD [address] [place] [address] [phone] 08/22/2024 10:30 AM EDT Office Visit [facility] [address] [place] [address] 32034 Cristy Monet MD [address] [place] [address] [phone] documented as of this encounter Procedures Procedure Name Priority Date/Time Associated Diagnosis Comments BIOPSY CERVIX Routine 05/02/2024 11:47 AM EST documented in this encounter Results * Biopsy cervix (05/02/2024 11:47 AM EST) Historical Provider IN CLINIC/BEDSIDE ORDERAB LES Final Result documented in this encounter Visit Diagnoses Not on filedocumented in this encounter Care Teams Flight Operation Coordinator Relationship Specialty Start Date End Date Cristy Monet MD [address] [place] [address] [phone] PCP - General Family Medicine 12/12/19 Sung Rand, PharmD [address] [place] [address] [phone] Pharmacist Internal Medicine 05/27/24 documented as of this encounter
--- OUTSIDE RECORDS SUMMARY | 2024-06-19 13:08 | XMS_ITS | Encounter Summary ---
Author Organization [employer] [facility] Address [address] [place] [address] 7t [place] [address] Care Team Providers Care Organizational Development Director Name Role Phone Cristy Monet MD Primary Care Provider + Sung Rand PharmD Unavailable [phone] Encounter Details Date Type Department Care Team (Late st Contact Info) Description 03/28/2022 Orders Only [facility] [address] [place] [address] [phone] Odilia Simley LPN Social History Tobacco Use Types Packs/Day [...] Info) Description 08/12/2024 2:00 PM EDT Telemedicine [facility] [address] [place] [address] 19910 Sung Rand, PharmD [address] [place] [address] 08/22/2024 10:30 AM EDT Office Visit [facility] [address] [place] [address] 38654 Cristy Monet MD [address] [place] [address] documented as of this encounter Visit Diagnoses Not on filedocumented in this encounter Care Teams Organizational Development Director Relationship Specialty Start Date End Date Cristy Monet MD [address] [place] [address] PCP - General Family Medicine 12/12/19 Sung Rand, Bill [address] [place] [address] Pharmacist Internal Medicine 05/27/24 documented as of this encounter
--- OUTSIDE RECORDS SUMMARY | 2024-06-19 13:08 | XMS_ITS | Encounter Summary ---
Author Organization [employer] Address [address] [facility] [address] [place] [address] Care Team Providers Care Respite Coordinator Name Role Phone Cristy Monet MD Primary Care Provider + Sung Rand PharmD Unavailable [phone] Encounter Details Date Type Department Care Team (Late st Contact Info) Description 04/17/2024 Orders Only [facility] MED[facility]INE [address] [place] [address] ProviderIda MD Social History Tobacco Use Types [...] EDT Telemedicine [facility] [address] [place] [address] [phone] Sung Rand, PharmD [address] [place] [address] 50214 08/22/2024 10:30 AM EDT Office Visit [facility] [address] [place] [address] [phone] Cristy Monet MD [address] [place] [address] [phone] documented as of this encounter Procedures Procedure Name Priority Date/Time Associated Diagnosis Comments COLPOSCOPY Routine 04/14/2024 3:06 PM EST documented in this encounter Results * Colposcopy (04/14/2024 3:06 PM EST) Historical Provider IN CLINIC/BEDSIDE ORDERAB LES Final Result documented in this encounter Visit Diagnoses Not on filedocumented in this encounter Care Teams Respite Coordinator Relationship Specialty Start Date End Date Cristy Monet MD [address] [place] [address] [phone] PCP - General Family Medicine 12/12/19 Sung Rand, PharmD [address] [place] [address] [phone] Pharmacist Internal Medicine 05/27/24 documented as of this encounter
--- OUTSIDE RECORDS SUMMARY | 2024-06-19 13:08 | XMS_ITS | Encounter Summary ---
Author Organization [facility] Address [address] [place] [address] 7t [place] [address] Care Team Providers Care Supervisor Coffee Name Role Phone Cristy Monet MD Primary Care Provider + Sung Rand PharmD Unavailable [phone] Encounter Details Date Type Department Care Team (Late st Contact Info) Description 07/07/2022 Orders Only [facility] MEDICINE [address] [place] [phone] Odilia Smiley LPN Social History Tobacco Use [...] Info) Description 08/12/2024 2:00 PM EDT Telemedicine [address] [address] Sung Rand, PharmD [address] [place] [address] 08/22/2024 10:30 AM EDT Office Visit [facility] MEDICINE [address] [place] [phone] Cristy Monet MD [address] [place] [address] documented as of this encounter Procedures Procedure Name Priority Date/Time Associated Diagnosis Comments BI MAMMOGRAM SCREENING TOMOSYNTHESIS BILATERAL Routine 07/07/2022 1:05 PM EDT documented in this encounter Results * BI Mammogram Screening Tomosynthesis Bilateral (07/07/2022 1:05 PM EDT) Anatomical Region Laterality Modality Breast Bilateral Mammography 07/07/2022 1:05 PM EDT Narrative 07/10/2022 1:12 PM EDT ? [facility] ? [address] ?[place], [place] [address] ? Mammography Report ? Signed ? Patient: Roel,Delilah ?MR#: [id number] ?? 39 ? : 1955 ?Acct:[id number] ? Age/Sex: 66 / F ?ADM Date: 07/07/22 ? Loc: HO.MAMMO ? Attending Dr: Cristy Monet MD ? Ordering Physician: Cristy Monet MD ?Results: 2Be ?? nign Findings ? Date of Service: 07/07/ ?Follow Up: 1 Year From Orig ?? inal Mammogram ? Procedure(s): MM tomosynthesis screening BI ?? Accession Number(s): [id number] ? cc: Cristy Monet MD ? EXAMINATION: [...] 1309 ? DD/ 04 ? TD/TT: ? Acute Care Nurse: ACOSTA ? Procedure Note Shashi Buckner - 08/31/2022 [facility] [address] [place] [address] [place] [address] Mammography Report Signed Patient: Delilah SevillaMR#: [id number] 39 : 8Acct:[id number] Age/Sex: 66 / FADM Date: 07/07/22 Loc: HO.MAMMO Attending Dr: Cristy Monet MD Ordering Physician: Cristy Monet MDResults: 2Be nign Findings Date of Service: 07/07/22Follow Up: 1 Year From Orig inal Mammogram Procedure(s): MM tomosynthesis screening BI Accession Number(s): [id number] cc: Cristy Monet MD EXAMINATION: MM SCREENING [...] in OV> 07/10/22 1309 DD/ 1305 TD/TT: Acute Care Nurse: ACOSTA [employer] External Provider IMG BI PROCEDURES Final Result documented in this encounter Visit Diagnoses Not on filedocumented in this encounter Care Teams Supervisor Coffee Relationship Specialty Start Date End Date Cristy Monet MD [address] [place], [place] [phone] PCP - General Family Medicine 12/12/19 Sung Rand, DaeD [address] [place], [place] [phone] Pharmacist Internal Medicine 05/27/24 documented as of this encounter
--- OUTSIDE RECORDS SUMMARY | 2024-06-19 13:08 | XMS_ITS | Clinical Summary ---
Author Organization [employer] Address [address] [facility] 7t [place] [address] Care Team Providers Care Bench Hand Machine Name Role Phone Cristy Monet MD Primary Care Provider + Sung Rand PharmD Unavailable [phone] Allergies Active Allergy Reactions Criticality Noted Date [...] g 3 06/27/19 24 025 Active Umeclidinium [place] (Incruse Ellipta) 62.5 MCG/ACT aerosol powder Inhale [...] get labs done today and f/u with tank worker Assessment & Plan (06/27/2023 9:57 AM EDT): [...] asymptomatic I will refer to rheumatology in [facility] to improve compliance w/ appointment Assessment & [...] Type Department Care Team Description 06/10/2024 Refill [facility] MEDICINE [address] [place] [address] Cristy Monet MD Resistant hypertension 06/09/2024 Orders Only [facility] MED & PEDS [address] [place] [address] Ida Augustin MD 05/29/2024 Refill [facility] MED[facility] [address] [place] [address] Cristy Monet MD HTN (hypertension), benign 05/20/2024 Travel 05/09/2024 Refill [facility] [address] [place] [address] Cristy Monet MD Resistant hypertension 05/02/2024 Orders Only GENERIC EXTERNAL DATA DEPARTMENT Provider, Generic External Data 04/17/2024 Orders Only [facility] [address] [place] [address] Ida Augustin MD 04/17/2024 Telephone [facility]INE [address] [place] [address] Cristy Monet MD No Show 04/15/2024 Orders Only [facility] [address] [place] [address] Cristy Monet MD 04/11/2024 Orders Only GENERIC EXTERNAL DATA DEPARTMENT Provider, Generic External Data 04/10/2024 Refill [facility] [address] [place] [address] Olivia Ferguson MD Resistant hypertension 03/26/2024 Telephone [facility] [address] [place] [address] Cristy Monet MD telephone call from Last [...] Info) Description 08/12/2024 2:00 PM EDT Telemedicine [facility] MEDICINE [address] [place] [address] [phone] Sung Rand, PharmD [address] [place], [place] [phone] 08/22/2024 10:30 AM EDT Office Visit [facility] MEDICINE [address] [place] [phone] Cristy Monet MD [address] [place], [place] [phone] Health Maintenance Due Date Last Done Comments [...] 07/07/2022 HPV/Cotest 10/17/2024 10/18/2023, 08/07/2022 Pap Smear 10/30/2024 10/18/2023, 06/07/2022, 08/07/2022, Additional history exists Tobacco [...] AM EST 05/02/2024 8:33 AM EST Narrative [facility] - 05/06/2024 9:57 AM EST ----- ------- Name: Delilah Sevilla ? Age/Sex: 68/F ? : 1955 Unit#: [id number] ?? Attend Dr: Niall Pearson MD ?Re05/02/24 ?Status: DEP SDC ? Location: HO.SSS ?Disch: ? ----- ------- SPEC : [id number] ? RECD: 05/02/24 ? STATUS: ??SOUT ? REQ NUM: [id number] ? [place]: 05/02/24 ? SUBM DR: Niall [...] ? Age/Sex: 68/F ? : 1955 Unit#: [id number] ?? Attend Dr: Niall Pearson MD ?Re05/02/24 ?Status: DEP SDC ? Location: HO.SSS ?Disch: ? ----- ------- SPEC : [id number] ? RECD: 05/02/24 ? STATUS: ??SOUT ? REQ NUM: [id number] ? [place]: 05/02/24 ? SUBM DR: Niall Pearson MD ? ENTERED: ??05/02/24 ?SP TYPE: Surgical ? OTHR DR: Cristy Monet MD ? ORDERED: ??HE Stain/6, Gross Micro L4/3 ? Copies To: ?? Cristy Monet MD ?? [facility] ?? [address] [facility] [address] ?? [place] [address] ?? [phone] ?? Niall Pearson MD ?? [facility] ?? [address] [facility] [address] ?? [place] [address] ?? [phone] ----- ------- Signed (signature on file) Sejal Romero MD 05/06/24 0957 ? ----- ------- ? END OF REPORT ? us Generic External Data Provider LAB BLOOD ORDERAB LES Final Result [facility] [address] [place] [phone] * BI Mammogram Diagnostic Tomosynthesis Bilateral (04/15/2024 10:00 AM EST) Anatomical Region Laterality Modality Breast Bilateral Mammography 04/15/2024 10:0 0 AM EST Narrative 04/15/2024 10:44 AM EST ? [facility] ? [address] [facility] ?[place] [address] ? Mammography Report ? Signed ? Patient: Roel,Delilah ?MR#: [id number] ?? 41 ? : 1955 ?Acct:[id number] ? Age/Sex: 68 / F ?ADM Date: 02/11/25 ? Loc: HO.MAMMO ? Attending Dr: Cristy Monet MD ? Ordering Physician: Cristy Monet MD ?Results: 3.6MProbably Benign Finding - Short 6 M F/U ?? Suggested ? Date of Service: 04/15/24 ?Follow Up: 6 Month F/U ? Procedure(s): MM tomosynthesis diagnostic BI ?? Accession Number(s): [id number] ? cc: Cristy Monet MD ? EXAMINATION: [...] DD/ 1000 ? TD/TT: 04/15/24 1036 ? Credit Underwriter: ? Procedure Note Shashi Buckner - 04/15/2024 [facility] [address] [place], [place] [address] Mammography Report Signed Patient: Delilah SevillaMR#: [id number] 39 : 8Acct:[id number] Age/Sex: 68 / FADM Date: 04/15/24 Loc: HO.MAMMO Attending Dr: Cristy Monet MD Ordering Physician: Cristy Monet MD Results: 3.6MProbably Benign Finding - Short 6 M F/U Suggested Date of Service: 04/15/24Follow Up: 6 Month F/U Procedure(s): MM tomosynthesis diagnostic BI Accession Number(s): [id number] cc: Cristy Monet MD EXAMINATION: MM DIAGNOSTIC [...] 04/15/24 1041 DD/ 1000 TD/TT: 04/15/24 1036 Credit Underwriter: Cristy Monet MD IMG BI PROCEDURES Final Result * Colposcopy (04/14/2024 3:06 PM EST) Historical Provider IN CLINIC/BEDSIDE ORDERAB LES Final Result * (ABNORMAL) Hm Colonoscopy (12/25/2023) Colonoscopy Abnormal( A) Normal [facility] Comment:TA + hyperplastic po lyps Cristy Monet MD HEALTH MAINTENANCE Final Result [facility] [address] [place] [address] [phone] * (ABNORMAL) Lipid Panel, Standard (12/19/2023 9:22 AM EDT) Triglycerides 79 <150 mg/dL [facility] Comment:Desirable Triglyceri de: less than 150 mg/dLBorderline High Triglyceride 150-199 mg/dLHigh Triglyceride: 200-499 mg/dLVery High Triglyceride: greater than or equal to 5OO mg/dL Cholesterol 224(H) <200 mg/dL [facility] Comment:Desirable Cholestero l: less than 200 mg/dLBorderline High Cholesterol: 200-239 mg/dLHigh Cholesterol: greater than 239 mg/dL LDL Cholesterol Calculated 117(H) <100 mg/dL [facility] Comment:Desirable LDL: less than 100 mg/dLNear Optimal/Above Optimal LDL: 110- 129 mg/dLBorderline High LDL: 130-159 mg/dLHigh LDL: 160-189 mg/dLVery High LDL: greater than or equal to 190 mg/dL HDL Cholesterol 92 >40 mg/dL [facility] Comment:Desirable HDL: great er than 40 mg/dL Note: This HDL assay may give artificially low results in patients with liver disease. 12/19/2023 9:22 AM EDT 12/19/2023 11:43 AM EDT Cristy Monet MD LAB BLOOD ORDERABLES Fin al Result Performing Organization Address [facility] Co de Phone Number [facility] [address] [place] [address] [phone] * Hepatitis Panel, General (12/04/2023 9:36 AM EDT) Hepatitis A IgM Nonreactive Nonreactive [facility] Comment:IgM antibodies to MARTINES V not detected; does not exclude earlyacute or recovered HAV infection. ~Hepatitis B Surface Antibody REACTIVE Nonreactive [facility] Comment:REACTIVE: > 11.99 m IU/mL Hepatitis B Core Antibody Nonreactive Nonreactive [facility] Hepatitis C Antibody Nonreactive Nonreactive [facility] Comment:Antibodies to HCV no t detected; does not exclude early acuteHCV infection. Hepatitis B Surface Ag Negative Negative [facility] Blood 12/04/2023 9:36 AM EDT 12/04/2023 11:01 AM EDT us Cristy Monet MD LAB BLOOD ORDERABLES Fin al Result [facility] [address] [place] [address] [phone] * (ABNORMAL) ThinPrep?? Imaging Pap Refl HPV mRNA(if ASCUS,ASC- H,LSIL,HSIL,TWILA)Refl Genotype (10/18/2023 10:43 AM EDT) HPV nRNA E6/E7 Detected(A ) Not Detected [facility] Comment:Methodology: Transcr iption-Mediated AmplificationThis assay detects E6/E7 viral messenger RNA (mRNA) from 14high-risk HPV types (16,18,31,33,35,39,45,51,52,56,58,59,66,68).Cervical sources are required for HPV testing.If a vaginal source from a patient who has had atotal hysterectomy with removal of cervix wassubmitted, please contact the testing laboratoryfor alternative testing options.For additional information, please refer [email or web address](This link if provided for information/educational purposes only.)THIS TEST WAS PERFORMED AT:[facility] [place] [phone] MEDINA MD HPV 16,18/45 NOT DETECTED NOT DETECTED [facility] Comment:Methodology: Transcr iption Mediated AmplificationCervical sources are required for HPV testing.If a vaginal source from a patient who has had atotal hysterectomy with removal of cervix wassubmitted, please contact the testing laboratoryfor alternative testing options.THIS TEST WAS PERFORMED AT:[facility] [place] [phone] MEDINA MD SOURCE: SEE NOTE [facility] Comment:None given Report Status: [facility] Clinical Information: SEE NOTE [facility] Comment:None given LMP: SEE NOTE [facility] Comment:NONE GIVEN Prev. PAP: SEE NOTE [facility] Comment:NONE GIVEN Prev. BX: SEE NOTE [facility] Comment:NONE GIVEN Statement Of Adequacy: SEE NOTE [facility] Comment:Satisfactory for naheed luation.Endocervical/transformation zone componentpresent. General Categorization: SEE NOTE(A) [facility] Comment:Cytology Results: Ep ithelial Cell Abnormality Interpretation/Result: SEE NOTE(A) [facility] Comment:Atypical Squamous Ce lls of UndeterminedSignificance (ASC-US) Cytology Comment SEE NOTE [facility] Comment:This Pap test has be en evaluated with computerassisted technology. Bag Shaker: SEE NOTE [facility] Comment:DCR, CT(ASCP)CT scre ening location: [place] [address] Review Bag Shaker: [facility] Pathologist SEE NOTE [facility] Comment:Valerio Romero M.D./M.S .,Board Certified in Anatomic Pathology andBoard Eligible Cytopathology(electronic signature)Consulting Pathologist[address] [phone] PAP Infection [facility] See Note SEE NOTE [facility] Comment:EXPLANATORY NOTE:The Pap is a screening test for cervical cancer. It isnot a diagnostic test and is subject to false negativeand false positive results. It is most reliable when asatisfactory sample, regularly obtained, is submittedwith relevant clinical findings and history, and whenthe Pap result is evaluated along with historic andcurrent clinical information.THIS TEST WAS PERFORMED AT:[facility] ANATOM[address] PATH[address] [place] [phone] REYEZ MD 10/18/2023 10:4 3 AM EDT 10/18/2023 4:30 PM EDT Narrative [facility] - 10/31/2023 11:52 AM EDT SEE SCANNED RESULTS IN EMR Cristy Monet MD LAB CYTOLOGY ORDERABLES Final Result [facility] [address] [place] [address] [phone] from Last 3 Months or Most Recently Relevant to Health Maintenance Insurance [facility] Care Teams Bench Hand Machine Relationship Specialty Start Date End Date Cristy Monet MD [address] [place] [address] PCP - General Family Medicine 12/12/19 Sung Rand, DaeD [address] [place] [address] Pharmacist Internal Medicine 05/27/24
--- OUTSIDE RECORDS SUMMARY | 2024-06-19 13:08 | XMS_ITS | Encounter Summary ---
Author Organization [employer] [facility] Address [address] [place] [address] 7t [place] [address] Care Team Providers Care Wholesale Diamond Broker Name Role Phone Cristy Monet MD Primary Care Provider + Sung Rand PharmD Unavailable [phone] Encounter Details Date Type Department Care Team ([facility] Contact Info) Description 09/13/2022 Orders Only [facility] [address] [place] [address] [phone] Cristy Monet MD [address] [place] [address] [phone] Hyperkalemia (Primary Dx); Hypercalcemia Social History Tobacco [...] Info) Description 08/12/2024 2:00 PM EDT Telemedicine [facility] [address] [place] [address] [phone] Sung Rand, PharmD [address] [place], [place] [phone] 08/22/2024 10:30 AM EDT Office Visit [facility] [address] [place] [address] Cristy Monet MD [address] [place] [address] documented as of this encounter Procedures Procedure Name Priority Date/Time Associated Diagnosis Comments BASIC METABOLIC PANEL Routine 09/25/2022 8:41 AM EDT Hyperkalemia Hypercalcemia documented in this encounter Results * (ABNORMAL) Basic Metabolic Panel (09/25/2022 8:41 AM EDT) Sodium 138 135 - 145 mmol/L [facility] Potassium 5.0 3.3 - 5.1 mmol/L [facility] Chloride 102 96 - 108 mmol/L [facility] Carbon Dioxide 30(H) 22 - 29 mmol/L [facility] Anion Gap 11(L) 12 - 20 [facility] Urea Nitrogen (BUN) 15 9 - 16 mg/dL [facility] Creatinine, Serum 0.78 0.5 - 1.4 mg/dL [facility] Estimated Glomerular Filt Rate >60 [facility] Comment:NOTE: For -Am erican individuals, multiply the result by 1.210.Chronic Kidney Disease: Estimated GFR < 60 mL/min/1.55c5Yawndw Kidney Disease: Estimated GFR < 15 mL/min/1.73m2 Glucose 96 60 - 115 mg/dL [facility] Calcium 9.6 8.4 - 10.2 mg/dL [facility] Blood Venous blood specimen / Unknown 09/25/2022 8:41 AM EDT 09/25/2022 11:03 AM EDT us Cristy Monet MD LAB BLOOD ORDERABLES Fin al Result [facility] [address] [place] [address] [phone] documented in this encounter Visit Diagnoses Diagnosis Hyperkalemia- Primary Hyperpotassemia Hypercalcemia documented in this encounter Care Teams Wholesale Diamond Broker Relationship Specialty Start Date End Date Cristy Monet MD [address] [place] [address] PCP - General Family Medicine 12/12/19 Sung Rand, Bill [address] [place] [phone] Pharmacist Internal Medicine 05/27/24 documented as of this encounter
--- OUTSIDE RECORDS SUMMARY | 2024-06-19 13:08 | XMS_ITS | Encounter Summary ---
Author Organization [employer] Address [address] [facility] 7t [place] [address] Care Team Providers Care Airport Screener Name Role Phone Cristy Monet MD Primary Care Provider + Sung Rand PharmD Unavailable [phone] Reason for Visit * Reason Comments Med Refill Encounter Details Date Type Department Care Team ([facility] Contact Info) Description 01/14/2024 Refill [facility] [address] [place], [place] [phone] Cristy Monet MD [address] [place], [place] [phone] Social History Tobacco Use Types Packs/Day Years [...] 2:00 PM EDT Telemedicine [facility] [address] [place] [phone] Sung Rand, Bill [address] [place] [phone] 08/22/2024 10:30 AM EDT Office Visit [facility] [address] [place] [phone] Cristy Monet MD [address] [place] [phone] documented as of this encounter Visit Diagnoses Not on filedocumented in this encounter Care Teams Airport Screener Relationship Specialty Start Date End Date Cristy Monet MD [address] [place] [phone] PCP - General Family Medicine 12/12/19 Sung Rand, Bill [address] [place] [phone] Pharmacist Internal Medicine 05/27/24 documented as of this encounter
--- OUTSIDE RECORDS SUMMARY | 2024-06-19 13:08 | XMS_ITS | Encounter Summary ---
Author Organization [employer] Address [address] [facility] 7t [place] [address] Care Team Providers Care Flasher Adjuster Name Role Phone Cristy Monet MD Primary Care Provider + Sung Rand PharmD Unavailable [phone] Encounter Details Date Type Department Care Team (Late st Contact Info) Description 09/10/2023 Telephone [facility] [address] [place], [place] [phone] Cristy Monet MD [address] [place], [place] [phone] Social History Tobacco Use Types Packs/Day Years [...] Description 08/12/2024 2:00 PM EDT Telemedicine [facility] [address] [place] [phone] Sung Rand, Bill [address] [place] [phone] 08/22/2024 10:30 AM EDT Office Visit [facility] [address] [place] [phone] Cristy Monet MD [address] [place] [phone] documented as of this encounter Visit Diagnoses Not on filedocumented in this encounter Care Teams Flasher Adjuster Relationship Specialty Start Date End Date Cristy Monet MD [address] [place] [phone] PCP - General Family Medicine 12/12/19 Sung Rand, PharmD [address] [place] [phone] Pharmacist Internal Medicine 05/27/24 documented as of this encounter
== END 2024-06-19 11:31 | disposition home or self-care (01) ==
LOC: HO.RHE 10:50
PROVIDERS: PCP Internal Medicine; Visit Provider Student in an Organized Health Care Education/Training Program
DX: M06.09 Rheumatoid arthritis without rheumatoid factor, multiple sites (principal); Z79.899 Other long term (current) drug therapy
CPT/HCPCS: 99213; G2211

== ENCOUNTER 2024-06-19 10:50 | Outpatient (REF) | payer OTHER, SELFPAY ==
[2024-06-19 12:05] LABS: MANUAL DIFF FLAG NO
[2024-06-19 13:38] LABS: Basophils Absolute Auto 0.1 X10*3/uL (0.0-0.2); Basophils Percent Auto 0.7 % (0-2); Eosinophils Absolute Auto 0.1 X10*3/uL (0.0-0.4); Eosinophils Percent Auto 1.3 % (0-4); Hematocrit 40.5 % (37.0-47.0); Hemoglobin 13.8 g/dl (12.0-16.0); Imm Gran Abs Auto 0.03 X10*3/uL (0.00-0.03); Imm Gran Pct Auto 0.4 % (0.0-0.4); Lymphocytes Absolute Auto 2.3 X10*3/uL (1.2-4.9); Lymphocytes Percent Auto 30.7 % (20-40); Mean Corpuscular HGB Conc 34.1 g/dl (31.0-35.0); Mean Corpuscular Hemoglobin 31.8 pg (27.0-33.0); Mean Corpuscular Volume 93.3 fL (80.0-98.0); Monocytes Absolute Auto 0.6 X10*3/uL (0.1-1.2); Monocytes Percent Auto 7.9 % (2-11); Neutrophils Absolute Auto 4.5 x10*3/uL (2.0-8.3); Platelet Count 275 X10*3/uL (160-400); Red Blood Count 4.34 X10*6/uL (4.20-5.50); Red Cell Distribution Width 11.6 % (11.0-16.0); White Blood Count 7.6 X10*3/uL (4.8-10.8)
[2024-06-19 13:55] LABS: Appearance Urine Clear; Color Urine Yellow; Glucose Urine UA Negative (Negative); Leukocyte Esterase Urine Negative (Negative); Nitrite Urine Negative (Negative); PH 5.5 (5.0-9.0); Specific Gravity - Urine 1.015 (1.005-1.025); UMIC TRIGGER UA YES; Urine Blood Trace (Negative); Urine Ketones Negative (Negative); Urine Protein Negative (Neg-Trace)
[2024-06-19 14:00] LABS: Bacteria Urine 2+ (None Seen); Hyaline Casts Urine 0-2 /LPF (0-2); WBC Urine 0-5 /HPF (0-5)
[2024-06-19 14:06] LABS: Alanine Aminotransferase 18 U/L (0-31); Albumin Level 4.3 g/dL (3.5-5.0); Alkaline Phosphatase 114 U/L (39-117); Anion Gap 13 (12-20); Aspartate Amino Transferase 34 U/L (5-31); Bilirubin Total 0.3 mg/dL (0.0-1.0); Blood Urea Nitrogen 29 mg/dL (9-16); Calcium 9.5 mg/dL (8.4-10.2); Carbon Dioxide 26 mmol/L (22-29); Chloride 99 mmol/L (96-108); Estimated Glomerular Filt Rate 58; Glucose Random 86 mg/dL (60-115); Sodium 134 mmol/L (135-145); Total Protein 7.6 g/dL (6.5-8.0)
[2024-06-19 14:13] LABS: Creatinine Urine 91.68 mg/dL; Protein/Creatinine Ratio, Ur 0.11 (<0.2); Total Protein Urine Random 10 mg/dL (<12)
[2024-06-19 14:18] LABS: Erythrocyte Sedimentation Rate 14 MM/HR (0-20)
--- OUTSIDE RECORDS SUMMARY | 2024-06-19 14:33 | XMS_ITS | Encounter Summary ---
Author Organization [employer] Address [address] [facility] 7t [place] [address] Care Team Providers Care Dental Office Manager Name Role Phone Cristy Monet MD Primary Care Provider + Sung Rand PharmD Unavailable [phone] Encounter Details Date Type Department Care Team (Late st Contact Info) Description 09/10/[address] [facility] [address] [place], [place] [phone] Cristy Monet MD [address] [place], [place] [phone] Social History Tobacco Use Types Packs/Day Years [...] Description 08/12/2024 2:[address] [facility] [address] [place] [phone] Sung Rand, Bill [address] [place] [phone] 08/22/2024 10:30 AM EDT Office Visit [facility] [address] [place] [phone] Cristy Monet MD [address] [place] [phone] documented as of this encounter Visit Diagnoses Not on filedocumented in this encounter Care Teams Dental Office Manager Relationship Specialty Start Date End Date Cristy Monet MD [address] [place] [phone] PCP - General Family Medicine 12/12/19 Sung Rand, PharmD [address] [place] [phone] Pharmacist Internal Medicine 05/27/24 documented as of this encounter
--- OUTSIDE RECORDS SUMMARY | 2024-06-19 14:33 | XMS_ITS | Encounter Summary ---
Author Organization [employer] Address [address] [facility] 7t [place] [address] Care Team Providers Care Brass Cleaner Name Role Phone Cristy Monet MD Primary Care Provider + Sung Rand PharmD Unavailable [phone] Reason for Visit * Reason Comments Med Refill Encounter Details Date Type Department Care Team ([facility] Contact Info) Description 01/14/2024 Refill [facility] [address] [place], [place] [phone] Cristy Monet MD [address] [place], [place] [phone] Social History Tobacco Use Types Packs/Day Years [...] Info) Description 08/12/2024 2:00 PM EDT Telemedicine [facility] [address] [place] [phone] Sung Rand, Bill [address] [place] [phone] 08/22/2024 10:30 AM EDT Office Visit [facility] [address] [place] [phone] Cristy Monet MD [address] [place] [phone] documented as of this encounter Visit Diagnoses Not on filedocumented in this encounter Care Teams Brass Cleaner Relationship Specialty Start Date End Date Cristy Monet MD [address] [place] [phone] PCP - General Family Medicine 12/12/19 Sung Rand, Bill [address] [place] [phone] Pharmacist Internal Medicine 05/27/24 documented as of this encounter
--- OUTSIDE RECORDS SUMMARY | 2024-06-19 14:33 | XMS_ITS | Encounter Summary ---
Author Organization [facility] Address [address] [place] [address] 7t [place] [address] Care Team Providers Care Medical Record Retrieval Specialist Name Role Phone Cristy Monet MD Primary Care Provider + Sung Rand PharmD Unavailable [phone] Encounter Details Date Type Department Care Team (Late st Contact Info) Description 03/28/2022 Orders Only [facility] [address] [place] [phone] Odilia Smiley LPN Social History Tobacco Use [...] Info) Description 08/12/2024 2:00 PM EDT Telemedicine [facility] [address] [place] [phone] Sung Rand, PharmD [address] [place] [address] 08/22/2024 10:30 AM EDT Office Visit [facility] [address] [place] [phone] Cristy Monet MD [address] [place] [address] documented as of this encounter Visit Diagnoses Not on filedocumented in this encounter Care Teams Medical Record Retrieval Specialist Relationship Specialty Start Date End Date Cristy Monet MD [address] [place] [address] PCP - General Family Medicine 12/12/19 Sung Rand, Bill [address] [place] [address] Pharmacist Internal Medicine 05/27/24 documented as of this encounter
--- OUTSIDE RECORDS SUMMARY | 2024-06-19 14:33 | XMS_ITS | Clinical Summary ---
Author Organization [facility] Address [address] [facility] 7t [place] [address] Care Team Providers Care Admitting Supervisor Name Role Phone Cristy Monet MD Primary Care Provider + Sung Rand PharmD Unavailable Allergies Active Allergy Reactions Criticality Noted Date [...] g 3 06/27/19 24 025 Active Umeclidinium [place] (Incruse Ellipta) 62.5 MCG/ACT aerosol powder Inhale [...] get labs done today and f/u with cafeteria attendant Assessment & Plan (06/27/2023 9:57 AM EDT): [...] asymptomatic I will refer to rheumatology in [facility] to improve compliance w/ [...] Encounters Date Type Department Care Team Description 06/19/2024 Orders Only GENERIC EXTERNAL DATA DEPARTMENT Provider, Generic External Data 06/10/2024 Refill [facility] [address] [place] [address] Cristy Monet MD Resistant hypertension 06/09/2024 Orders Only [facility] [address] [place] [address] ProviderIda MD 05/29/2024 Refill [facility] [address] [place] [address] Cristy Monet MD HTN (hypertension), benign 05/20/2024 Travel 05/09/2024 Refill [facility] [address] [place] [address] Cristy Monet MD Resistant hypertension 05/02/2024 Orders Only GENERIC EXTERNAL DATA DEPARTMENT Provider, Generic External Data 04/17/2024 Orders Only [facility] [address] [place] [address] ProviderIda MD 04/17/2024 Telephone [facility] [address] [place] [address] Cristy Monet MD No Show 04/15/2024 Orders Only [facility] [address] [place] [address] Cristy Monet MD 04/11/2024 Orders Only GENERIC EXTERNAL DATA DEPARTMENT Provider, Generic External Data 04/10/2024 Refill [facility] [address] [place] [address] Olviia Ferguson MD Resistant hypertension 03/26/2024 Telephone [facility] [address] [place] [address] Cristy Monet MD telephone call from Last [...] Info) Description 08/12/2024 2:00 PM EDT Telemedicine [facility] [address] [place] [phone] Sung Rand, PharmD [address] [place], [place] [phone] 08/22/2024 10:30 AM EDT Office Visit [facility] [address] [place] [address] [phone] Cristy Monet MD [address] [place], [place] [phone] Health Maintenance Due Date Last Done Comments [...] (2 of 2) 12/26/2022 10/31/2022 COVID-19 Vaccine ( season) 2023 01/04/2021, 12/14/2020 Influenza Vaccine (#1) 2023 , 01/12/2020, 11/21/2018, Additional history exists SDOH Screening 06/04/2024 06/05/2023 Depression Screening 09/16/2024 09/17/2023, 09/17/19 24 Diagnostic Breast Imaging 10/13/20242024, 10/10/2023, 07/07/2022 HPV/Cotest 10/17/2024 10/18/2023, 08/07/2022 Pap Smear 10/30/2024 10/18/2023, 0607/2022, 08/07/2022, Additional history exists Tobacco Screening 05/27/2025 05/27/2024 Lipid Panel 12/18/2028 12/19/2023, 09/02, 05/04/2021 Colonoscopy [...] Procedure Name Priority Date/Time Associated Diagnosis Comments SED RATE BY MODIFIED WESTERGREN Routine 06/19/2024 12:02 PM EDT C-REACTIVE PROTEIN Routine 06/19/2024 12 :02 PM EDT COMPREHENSIVE METABOLIC PANEL Routine 06/19/2024 12:02 PM EDT CBC WITH AUTO DIFFERENTIAL Routine 06/19/2024 12:02 PM EDT PROTEIN CREATININE RATIO, URINE Routine 06/19/2024 12:00 PM EDT URINALYSIS, COMPLETE Routine 06/19/2024 12:00 PM EDT BIOPSY CERVIX Routine 05/02/2024 11:47 AM EST [...] Recently Relevant to Health Maintenance Results * CBC auto differential (06/19/2024 12:02 PM EDT) White Blood Count 7.6 4.8 - 10.8 X10*3/uL [facility] Red Blood Count 4.34 4.20 - 5.50 X10*6/uL [facility] Hemoglobin 13.8 12.0 - 16.0 g/dl [facility] Hematocrit 40.5 37.0 - 47.0 % [facility] Mean Corpuscular Volume 93.3 80.0 - 98.0 fL [facility] Mean Corpuscular Hemoglobin 31.8 27.0 - 33.0 pg [facility] Mean Corpuscular HGB Conc 34.1 31.0 - 35.0 g/dl [facility] Red Cell Distribution Width 11.6 11.0 - 16.0 % [facility] Platelet Count 275 160 - 400 X10*3/uL [facility] Mean Platelet Volume 10.0 9.4 - 12.3 fL [facility] Neutrophils Percent Auto 59.0 45 - 73 % [facility] Imm Gran Pct Auto 0.4 0.0 - 0.4 % [facility] Lymphocytes Percent Auto 30.7 20 - 40 % [facility] Monocytes Percent Auto 7.9 2 - 11 % [facility] Eosinophils Percent Auto 1.3 0 - 4 % [facility] Basophils Percent Auto 0.7 0 - 2 % [facility] NRBC Pct Auto 0.0 0.0 - 0.2 /100WBC [facility] Neutrophils Absolute Auto 4.5 2.0 - 8.3 x10*3/uL [facility] Imm Gran Abs Auto 0.03 0.00 - 0.03 X10*3/uL [facility] Lymphocytes Absolute Auto 2.3 1.2 - 4.9 X10*3/uL [facility] Monocytes Absolute Auto 0.6 0.1 - 1.2 X10*3/uL [facility] Eosinophils Absolute Auto 0.1 0.0 - 0.4 X10*3/uL [facility] Basophils Absolute Auto 0.1 0.0 - 0.2 X10*3/uL [facility] NRBC Abs Auto 0.000 0.0 - 0.012 X10*3/uL [facility] 06/19/2024 12:0 2 PM EDT 06/19/2024 12:02 PM EDT us Generic External Data Provider LAB BLOOD ORDERAB LES Final Result [facility] [address] [place] [phone] * Sed Rate by Modified Westergren (06/19/2024 12:02 PM EDT) [facility] Erythrocyte Sedimentation Rate 14 0 - 20 MM/HR [facility] Comment:Patients with polycy themia and many hemoglobin abnormalitiesmay have depressed sed rates whereas patients with anemiamay have elevated sed rates. 06/19/2024 12:0 2 PM EDT 06/19/2024 12:02 PM EDT us Generic External Data Provider LAB BLOOD ORDERAB LES Final Result Performing Organization Address [facility] Co de Phone Number [facility] [address] [place] [phone] * C-reactive Protein (06/19/2024 12:02 PM EDT) [facility] C Reactive Protein 0.10 < or = 0.50 mg/dL [facility] 06/19/2024 12:0 2 PM EDT 06/19/2024 12:02 PM EDT us Generic External Data Provider LAB BLOOD ORDERAB LES Final Result Performing Organization Address [facility] Co de Phone Number [facility] [address] [place] [phone] * (ABNORMAL) Comprehensive Metabolic Panel (06/19/2024 12:02 PM EDT) [facility] Sodium 134(L) 135 - 145 mmol/L [facility] Potassium 4.0 3.3 - 5.1 mmol/L [facility] Chloride 99 96 - 108 mmol/L [facility] Carbon Dioxide 26 22 - 29 mmol/L [facility] Anion Gap 13 12 - 20 [facility] Urea Nitrogen (BUN) 29(H) 9 - 16 mg/dL [facility] Creatinine, Serum 0.96 0.5 - 1.4 mg/dL [facility] Estimated Glomerular Filt Rate 58 [facility] Comment:Chronic Kidney Disea se: Estimated GFR < 60 mL/min/1.80b6Slscnn Kidney Disease: Estimated GFR < 15 mL/min/1.73m2 Glucose 86 60 - 115 mg/dL [facility] Calcium 9.5 8.4 - 10.2 mg/dL [facility] Bilirubin, Total 0.3 0.0 - 1.0 mg/dL [facility] Aspartate Amino Transferase 34(H) 5 - 31 U/L [facility] Alanine Aminotransferase 18 0 - 31 U/L [facility] Total Protein 7.6 6.5 - 8.0 g/dL [facility] Albumin Level 4.3 3.5 - 5.0 g/dL [facility] Alkaline Phosphatase 114 39 - 117 U/L [facility] 06/19/2024 12:0 2 PM EDT 06/19/2024 12:02 PM EDT us Generic External Data Provider LAB BLOOD ORDERAB LES Final Result Performing Organization Address [facility] de Phone Number [facility] [address] [place] [address] [phone] * Protein Creatinine Ratio, Urine (06/19/2024 12:00 PM EDT) Creatinine, Urine 91.68 mg/dL [facility] Protein, Total, Random Urine 10 <12 mg/dL [facility] Protein/Creatin ine Ratio, Ur 0.11 <0.2 [facility] Comment:The spot urine prote in:creatinine ratio may increase to 0.3during normal . 06/19/2024 12:0 0 PM EDT 06/19/2024 1:25 PM EDT us Generic External Data Provider LAB URINE ORDERAB LES Final Result Performing Organization Address [facility] Co de Phone Number [facility] [address] [place] [phone] * (ABNORMAL) Urinalysis Complete (06/19/2024 12:00 PM EDT) Color Urine Yellow [facility] Appearance Urine Clear [facility] PH 5.5 5.0 - 9.0 [facility] Glucose Urine UA Negative Negative mg/dL [facility] Urine Blood Trace(A) Negative [facility] Specific [place] - Urine 1.015 1.005 - 1.025 [facility] Urine Protein Negative Neg-Trace mg/dL [facility] Urine Ketones Negative Negative mg/dL [facility] Nitrite Urine Negative Negative [facility] Leukocyte Esterase Urine Negative Negative [facility] RBC Urine 3-5(A) 0 - 2 /HPF [facility] Urine WBC 0-5 0 - 5 /HPF [facility] Urine Squamous Epithelial Cell 6-10 0 - 2 /HPF [facility] Urine Bacteria 2+ None Seen [facility] Hyaline Casts, Urine 0-2 0 - 2 /LPF [facility] 06/19/2024 12:0 0 PM EDT 06/19/2024 1:25 PM EDT us Generic External Data Provider LAB URINE ORDERAB LES Final Result [facility] [address] [place] [address] [phone] * Biopsy cervix (05/02/2024 11:47 AM EST) us Historical Provider MD IN CLINIC/BEDSIDE ORDERAB LES Final Result * Hematoxylin and Eosin Stain (05/02/2024 7:49 AM EST) Only the most recent of2 resultswithin the time period is included. 05/02/2024 7:49 AM EST 05/02/2024 8:33 AM EST Narrative [facility] - 05/06/2024 9:57 AM EST ----- ------- Name: Roel,Delilah ? Age/Sex: 68/F ? : 1955 Unit#: [id number] ?? Attend Dr: Niall Pearson MD ?Re05/02/24 ?Status: DEP SDC ? Location: HO.SSS ?Disch: ? ----- ------- SPEC : [id number] ? RECD: 05/02/24 ? STATUS: ??SOUT ? REQ NUM: [id number] ? A[place]LAIDE: 05/02/24 ? SUBM DR: Niall [...] ? Age/Sex: 68/F ? : 1955 Unit#: [id number] ?? Attend Dr: Niall Pearson MD ?Re05/02/24 ?Status: DEP SDC ? Location: HO.SSS ?Disch: ? ----- ------- SPEC : [id number] ? RECD: 05/02/24 ? STATUS: ??SOUT ? REQ NUM: [id number] ? [place]: 05/02/24 ? SUBM DR: Niall Pearson MD ? ENTERED: ??05/02/24 ?SP TYPE: Surgical ? OTHR DR: Cristy Monet MD ? ORDERED: ??HE Stain/6, Gross Micro L4/3 ? Copies To: ?? Cristy Monet MD ?? [facility] ?? [address] [facility] ?? [place] [address] ?? [phone] ?? Niall Pearson MD ?? [facility] ?? [address] [facility] [address] ?? [place] [address] ?? [phone] ----- ------- Signed (signature on file) Sejal Romero MD 05/06/24 0957 ? ----- ------- ? END OF REPORT ? us Generic External Data Provider LAB BLOOD ORDERAB LES Final Result [facility] [address] [place] [address] [phone] * BI Mammogram Diagnostic Tomosynthesis Bilateral (04/15/2024 10:00 AM EST) Anatomical Region Laterality Modality Breast Bilateral Mammography 04/15/2024 10:0 0 AM EST Narrative 04/15/2024 10:44 AM EST ? [facility] [address] ?[place] [address] ? Mammography Report ? Signed ? Patient: Roel,Delilah ?MR#: [id number] ?? 41 ? : 1955 ?Acct:[id number] ? Age/Sex: 68 / F ?ADM Date: 04/15/24 ? Loc: HO.MAMMO ? Attending Dr: Cristy Monet MD ? Ordering Physician: Cristy Monet MD ?Results: 3.6MProbably Benign Finding - Short 6 M F/U ?? Suggested ? Date of Service: 04/15/24 ?Follow Up: 6 Month F/U ? Procedure(s): MM tomosynthesis diagnostic BI ?? Accession Number(s): [id number] ? cc: Cristy Monet MD ? EXAMINATION: [...] ??Elda Graham DO ??04/15/2024 10:41 AM EST ?? RP ? Dictated By: ?Elda Graham DO ? Signed By: ?<Electronically signed by Elda Graham, DO in OV> ? 04/15/24 1041 ? DD/ 1000 ? TD/TT: 04/15/24 1036 ? [employer]: ? Procedure Note Sita, Image - 04/15/2024 Mauri Garcia's [address] [place] [address] Mammography Report Signed Patient: Delilah SevillaMR#: [id number] 39 : 1955cct:[id number] Age/Sex: 68 / FADM Date: 04/15/24 Loc: HO.MAMMO Attending Dr: Cristy Monet MD Ordering Physician: Cristy Monet MD Results: 3.6MProbably Benign Finding - Short 6 M F/U Suggested Date of Service: 04/15/24Follow Up: 6 Month F/U Procedure(s): MM tomosynthesis diagnostic BI Accession Number(s): [id number] cc: Cristy Monet MD EXAMINATION: MM DIAGNOSTIC [...] by: Elda Graham DO 04/15/2024 10:41 AM [facility] Dictated By: Elda Graham DO Signed By: <Electronically signed by Elda Graham DO in OV> 04/15/24 1041 DD/ 1000 TD/TT: 04/15/24 1036 [employer]: us Cristy Monet MD IMG BI PROCEDURES Final Result * Colposcopy (04/14/2024 3:06 PM EST) us Historical Provider MD IN CLINIC/BEDSIDE ORDERAB LES Final Result * (ABNORMAL) Hm Colonoscopy (12/25/2023) Colonoscopy Abnormal( A) Normal [facility] Comment:TA + hyperplastic po lyps Cristy Monet MD HEALTH MAINTENANCE Final Result [facility] [address] [place] [phone] * (ABNORMAL) Lipid Panel, Standard (12/19/2023 9:22 AM EDT) Triglycerides 79 <150 mg/dL [facility] Comment:Desirable Triglyceri de: less than 150 mg/dLBorderline High Triglyceride 150-199 mg/dLHigh Triglyceride: 200-499 mg/dLVery High Triglyceride: greater than or equal to 5OO mg/dL Cholesterol 224(H) <200 mg/dL [facility] Comment:Desirable Cholestero l: less than 200 mg/dLBorderline High Cholesterol: 200-239 mg/dLHigh Cholesterol: greater than 239 mg/dL LDL Cholesterol Calculated 117(H) <100 mg/dL [facility] Comment:Desirable LDL: less than 100 [...] ORDERABLES Fin al Result Performing Organization Address [facility] Co de Phone Number [facility] [address] [place] [address] [phone] * Hepatitis Panel, General (12/04/2023 9:36 AM EDT) Hepatitis A IgM Nonreactive Nonreactive [facility] Comment:IgM antibodies to MARTINES V not detected; does not exclude earlyacute or recovered HAV infection. ~Hepatitis B Surface Antibody REACTIVE Nonreactive [facility] Comment:REACTIVE: > 11.99 mI U/mL Hepatitis B Core Antibody Nonreactive Nonreactive [facility] Hepatitis C Antibody Nonreactive Nonreactive [facility] Comment:Antibodies to HCV no t detected; does not exclude early acuteHCV infection. Hepatitis B Surface Ag Negative Negative [facility] Blood 12/04/2023 9:36 AM EDT 12/04/2023 11:01 AM EDT Cristy Monet MD LAB BLOOD ORDERABLES Samuel al Result Performing Organization Address [facility] de Phone Number [facility] [address] [place] [phone] * (ABNORMAL) ThinPrep?? Imaging Pap Refl HPV mRNA(if ASCUS,ASC- H,LSIL,HSIL,TWILA)Refl Genotype (10/18/2023 10:43 AM EDT) HPV nRNA E6/E7 Detected(A ) Not Detected [facility] Comment:Methodology: Transcr iption-Mediated AmplificationThis assay detects E6/E7 viral messenger RNA (mRNA) from 14high-risk HPV types (16,18,31,33,35,39,45,51,52,56,58,59,66,68).Cervical sources are required for HPV testing.If a vaginal source from a patient who has had atotal hysterectomy with removal of cervix wassubmitted, please contact the testing laboratoryfor alternative testing options.For additional information, please refer tohttp://education.Gamisfaction/faq/BQK592o1(This link if provided for information/educational purposes only.)THIS TEST WAS PERFORMED AT:[facility] [address] [phone] MEDINA MD HPV 16,18/45 NOT DETECTED NOT DETECTED [facility] Comment:Methodology: Transcr iption Mediated AmplificationCervical sources are required for HPV testing.If a vaginal source from a patient who has had atotal hysterectomy with removal of cervix wassubmitted, please contact the testing laboratoryfor alternative testing options.THIS TEST WAS PERFORMED AT:[facility] [address] [address]LBSSYJONES MEDINA MD SOURCE: SEE NOTE [facility] Comment:None given Report Status: [facility] Clinical Information: SEE NOTE [facility] Comment:None given LMP: SEE NOTE [facility] Comment:NONE GIVEN Prev. PAP: SEE NOTE [facility] Comment:NONE GIVEN Prev. BX: SEE NOTE [facility] Comment:NONE GIVEN Statement Of Adequacy: SEE NOTE [facility] Comment:Satisfactory for naheed luation.Endocervical/transformation zone componentpresent. General Categorization: SEE NOTE(A) [facility] Comment:Cytology Results: Ep ithelial Cell Abnormality Interpretation/Result: SEE NOTE(A) [facility] Comment:Atypical Squamous Ce lls of UndeterminedSignificance (ASC-US) Cytology Comment SEE NOTE [facility] Comment:This Pap test has be en evaluated with computerassisted technology. Patient Sitter: SEE NOTE [facility] Comment:DCR, CT(ASCP)CT scre ening location: [place] [address] Review Patient Sitter: [facility] Pathologist SEE NOTE [facility] Comment:Valerio Romero M.D./M.S .,Board Certified in Anatomic Pathology andBoard Eligible Cytopathology(electronic signature)Consulting [address] [phone] PAP Infection TNP [facility] See Note SEE NOTE [facility] Comment:EXPLANATORY NOTE:The Pap is a screening test for cervical cancer. It isnot a diagnostic test and is subject to false negativeand false positive results. It is most reliable when asatisfactory sample, regularly obtained, is submittedwith relevant clinical findings and history, and whenthe Pap result is evaluated along with historic andcurrent clinical information.THIS TEST WAS PERFORMED AT:[facility] ANATOMIC PATHOLOGY[address] [place] [address]LJQLOLETICIA REYEZ MD 10/18/2023 10:4 3 AM EDT 10/18/2023 4:30 PM EDT Narrative [facility] - 10/31/2023 11:52 AM EDT SEE SCANNED RESULTS IN EMR Cristy Monet MD LAB CYTOLOGY ORDERABLES Final Result [facility] [address] [place] [phone] from Last 3 Months or Most Recently Relevant to Health Maintenance Insurance [facility] Care Teams Admitting Supervisor Relationship Specialty Start Date End Date Cristy Monet MD [address] [place] [address] PCP - General Family Medicine 12/12/19 Sung Rand, PharmD [address] [place] [address] Pharmacist Internal Medicine 05/27/24
--- OUTSIDE RECORDS SUMMARY | 2024-06-19 14:33 | XMS_ITS | Encounter Summary ---
Author Organization [employer] Address [address] [place] [address] Care Team Providers Care Funeral Greeter Name Role Phone Cristy Monet MD Primary Care Provider + Sung Rand PharmD Unavailable [phone] Reason for Visit * Reason Comments Med Refill Encounter Details Date Type Department Care Team ([facility] Contact Info) Description 02/03/2024 Refill [facility] [address] [place], [place] [phone] Niru Oakes MD [address] [place] [address] Resistant hypertension Social History Tobacco Use Types [...] Description 08/12/2024 2:00 PM EDT Telemedicine [facility] [address] [place] [phone] Sung Rand PharmD [address] [place] [phone] 08/22/2024 10:30 AM EDT Office Visit [facility] [address] [place] [phone] Cristy Monet MD [address] [place] [phone] documented as of this encounter Visit Diagnoses Diagnosis Resistant hypertension documented in this encounter Care Teams Funeral Greeter Relationship Specialty Start Date End Date Cristy Monet MD [address] [place] [phone] PCP - General Family Medicine 12/12/19 Sung Rand, DaeD [address] [place] [address] [phone] Pharmacist Internal Medicine 05/27/24 documented as of this encounter
--- OUTSIDE RECORDS SUMMARY | 2024-06-19 14:33 | XMS_ITS | Encounter Summary ---
Author Organization [facility] Address [address] [place] [address] 7t [place] [address] Care Team Providers Care Rhit Name Role Phone Cristy Monet MD Primary Care Provider + Sung Rand PharmD Unavailable [phone] Encounter Details Date Type Department Care Team (Late st Contact Info) Description 07/07/2022 Orders Only [facility] [address] [place] [phone] Odilia Smiley LPN Social History Tobacco Use [...] Info) Description 08/12/2024 2:00 PM EDT Telemedicine [address] [phone] Sung Rand, PharmD [address] [place] [address] 08/22/2024 10:30 AM EDT Office Visit [facility] [address] [place] [phone] Cristy Monet MD [address] [place] [address] documented as of this encounter Procedures Procedure Name Priority Date/Time Associated Diagnosis Comments BI MAMMOGRAM SCREENING TOMOSYNTHESIS BILATERAL Routine 07/07/2022 1:05 PM EDT documented in this encounter Results * BI Mammogram Screening Tomosynthesis Bilateral (07/07/2022 1:05 PM EDT) Anatomical Region Laterality Modality Breast Bilateral Mammography 07/07/2022 1:05 PM EDT Narrative 07/10/2022 1:12 PM EDT ? [facility] [employer] ? [address] ?[place], [place] [address] ? Mammography Report ? Signed ? Patient: Roel,Delilah ?MR#: [id number] ?? 41 ? : 1955 ?Acct:[id number] ? Age/Sex: 66 / F ?ADM Date: 07/07/22 ? Loc: HO.MAMMO ? Attending Dr: Cristy Monet MD ? Ordering Physician: Cristy Monet MD ?Results: 2Be ?? nign Findings ? Date of Service: 07/07/ ?Follow Up: 1 Year From Orig ?? inal Mammogram ? Procedure(s): MM tomosynthesis screening BI ?? Accession Number(s): [id number] ? cc: Cristy Monet MD ? EXAMINATION: [...] 1309 ? DD/ 04 ? TD/TT: ? Home Office Representative: ACOSTA ? Procedure Note Shashi Buckner - 08/31/2022 [facility] [address] [place] [address] [place] [address] Mammography Report Signed Patient: Delilah SevillaMR#: [id number] 39 : 8Acct:[id number] Age/Sex: 66 / FADM Date: 07/07/22 Loc: HO.MAMMO Attending Dr: Cristy Monet MD Ordering Physician: Cristy Monet MDResults: 2Be nign Findings Date of Service: 07/07/22Follow Up: 1 Year From Orig inal Mammogram Procedure(s): MM tomosynthesis screening BI Accession Number(s): [id number] cc: Cristy Monet MD EXAMINATION: MM SCREENING [...] in OV> 07/10/22 1309 DD/ 1305 TD/TT: Home Office Representative: ACOSTA [facility] External Provider IMG BI PROCEDURES Final Result documented in this encounter Visit Diagnoses Not on filedocumented in this encounter Care Teams Rhit Relationship Specialty Start Date End Date Cristy Monet MD [address] [place], [place] [phone] PCP - General Family Medicine 12/12/19 Sung Rand, DaeD [address] [place], [place] [phone] Pharmacist Internal Medicine 05/27/24 documented as of this encounter
--- OUTSIDE RECORDS SUMMARY | 2024-06-19 14:33 | XMS_ITS | Encounter Summary ---
Author Organization [employer] Address [address] 7t [place] [address] Care Team Providers Care Health Occupations Instructor Name Role Phone Cristy Monet MD Primary Care Provider + Sung Rand PharmD Unavailable [phone] Encounter Details Date Type Department Care Team (Late st Contact Info) Description 06/09/2024 Orders Only [facility] [address] [place], [place] [phone] ProviderIda MD Social History Tobacco Use Types [...] EDT Telemedicine [facility] [address] [place] [phone] Sung Rand, PharmD [address] [place] [address] 08/22/2024 10:30 AM EDT Office Visit [facility] [address] [place] [phone] Cristy Monet MD [address] [place] [phone] documented as of this encounter Procedures Procedure Name Priority Date/Time Associated Diagnosis Comments BIOPSY CERVIX Routine 05/02/2024 11:47 AM EST documented in this encounter Results * Biopsy cervix (05/02/2024 11:47 AM EST) Historical Provider IN CLINIC/BEDSIDE ORDERAB LES Final Result documented in this encounter Visit Diagnoses Not on filedocumented in this encounter Care Teams Health Occupations Instructor Relationship Specialty Start Date End Date Cristy Monet MD [address] [place] [address] [phone] PCP - General Family Medicine 12/12/19 Sung Rand, PharmD [address] [place] [address] [phone] Pharmacist Internal Medicine 05/27/24 documented as of this encounter
--- OUTSIDE RECORDS SUMMARY | 2024-06-19 14:33 | XMS_ITS | Encounter Summary ---
Author Organization [employer] Address [address] [facility] 7t [place] [address] Care Team Providers Care Certified First Assistant Name Role Phone Cristy Monet MD Primary Care Provider + Sung Rand PharmD Unavailable [phone] Encounter Details Date Type Department Care Team (Late st Contact Info) Description 06/19/2024 Orders Only GENERIC EXTERNAL DATA [...] Info) Description 08/12/2024 2:00 PM EDT Telemedicine [facility] [address] [place] [phone] Sung Rand, DaeD [address] [place] [address] 08/22/2024 10:30 AM EDT Office Visit [facility] [address] [place] [phone] Cristy Monet MD [address] [place] [address] documented as of this encounter Procedures Procedure Name Priority Date/Time Associated Diagnosis Comments CBC WITH AUTO DIFFERENTIAL Routine 06/19/2024 12:02 PM EDT SED RATE BY MODIFIED WESTERGREN Routine 06/19/2024 12:02 PM EDT C-REACTIVE PROTEIN Routine 06/19/2024 12 :02 PM EDT COMPREHENSIVE METABOLIC PANEL Routine 06/19/2024 12:02 PM EDT PROTEIN CREATININE RATIO, URINE Routine 06/19/2024 12:00 PM EDT URINALYSIS, COMPLETE Routine 06/19/2024 12:00 PM EDT documented in this encounter Results * Sed Rate by Modified Westergren (06/19/2024 12:02 PM EDT) Erythrocyte Sedimentation Rate 14 0 - 20 MM/HR [facility] Comment:Patients with polycy themia and many hemoglobin abnormalitiesmay have depressed sed rates whereas patients with anemiamay have elevated sed rates. 06/19/2024 12:0 2 PM EDT 06/19/2024 12:02 PM EDT Generic External Data Provider LAB BLOOD ORDERAB LES Final Result Performing Organization Address [facility] Co de Phone Number [facility] [address] [place] [phone] * C-reactive Protein (06/19/2024 12:02 PM EDT) [facility] C Reactive Protein 0.10 < or = 0.50 mg/dL [facility] 06/19/2024 12:0 2 PM EDT 06/19/2024 12:02 PM EDT Generic External Data Provider LAB BLOOD ORDERAB LES Final Result Performing Organization Address [facility] de Phone Number [facility] [address] [place] [phone] * (ABNORMAL) Comprehensive Metabolic Panel (06/19/2024 12:02 PM EDT) [facility] Sodium 134(L) 135 - 145 mmol/L [facility] Potassium 4.0 3.3 - 5.1 mmol/L [facility] Chloride 99 96 - 108 mmol/L [facility] Carbon Dioxide 26 22 - 29 mmol/L [facility] Anion Gap 13 12 - 20 [facility] Urea Nitrogen (BUN) 29(H) 9 - 16 mg/dL [facility] Creatinine, Serum 0.96 0.5 - 1.4 mg/dL [facility] Estimated Glomerular Filt Rate 58 [facility] Comment:Chronic Kidney Disea se: Estimated GFR < 60 mL/min/1.26w9Urnmxv Kidney Disease: Estimated GFR < 15 mL/min/1.73m2 Glucose 86 60 - 115 mg/dL [facility] Calcium 9.5 8.4 - 10.2 mg/dL [facility] Bilirubin, Total 0.3 0.0 - 1.0 mg/dL [facility] Aspartate Amino Transferase 34(H) 5 - 31 U/L [facility] Alanine Aminotransferase 18 0 - 31 U/L [facility] Total Protein 7.6 6.5 - 8.0 g/dL [facility] Albumin Level 4.3 3.5 - 5.0 g/dL [facility] Alkaline Phosphatase 114 39 - 117 U/L [facility] 06/19/2024 12:0 2 PM EDT 06/19/2024 12:02 PM EDT us Generic External Data Provider LAB BLOOD ORDERAB LES Final Result [facility] [address] [place] [phone] * CBC auto differential (06/19/2024 12:02 PM EDT) White Blood Count 7.6 4.8 - 10.8 X10*3/uL [facility] Red Blood Count 4.34 4.20 - 5.50 X10*6/uL [facility] Hemoglobin 13.8 12.0 - 16.0 g/dl [facility] Hematocrit 40.5 37.0 - 47.0 % [facility] Mean Corpuscular Volume 93.3 80.0 - 98.0 fL [facility] Mean Corpuscular Hemoglobin 31.8 27.0 - 33.0 pg [facility] Mean Corpuscular HGB Conc 34.1 31.0 - 35.0 g/dl [facility] Red Cell Distribution Width 11.6 11.0 - 16.0 % [facility] Platelet Count 275 160 - 400 X10*3/uL [facility] Mean Platelet Volume 10.0 9.4 - 12.3 fL [facility] Neutrophils Percent Auto 59.0 45 - 73 % [facility] Imm Gran Pct Auto 0.4 0.0 - 0.4 % [facility] Lymphocytes Percent Auto 30.7 20 - 40 % [facility] Monocytes Percent Auto 7.9 2 - 11 % [facility] Eosinophils Percent Auto 1.3 0 - 4 % [facility] Basophils Percent Auto 0.7 0 - 2 % [facility] NRBC Pct Auto 0.0 0.0 - 0.2 /100WBC [facility] Neutrophils Absolute Auto 4.5 2.0 - 8.3 x10*3/uL [facility] Imm Gran Abs Auto 0.03 0.00 - 0.03 X10*3/uL [facility] Lymphocytes Absolute Auto 2.3 1.2 - 4.9 X10*3/uL [facility] Monocytes Absolute Auto 0.6 0.1 - 1.2 X10*3/uL [facility] Eosinophils Absolute Auto 0.1 0.0 - 0.4 X10*3/uL [facility] Basophils Absolute Auto 0.1 0.0 - 0.2 X10*3/uL [facility] NRBC Abs Auto 0.000 0.0 - 0.012 X10*3/uL [facility] 06/19/2024 12:0 2 PM EDT 06/19/2024 12:02 PM EDT us Generic External Data Provider LAB BLOOD ORDERAB LES Final Result [facility] [address] [place] [phone] * Protein Creatinine Ratio, Urine (06/19/2024 12:00 PM EDT) Creatinine, Urine 91.68 mg/dL [facility] Protein, Total, Random Urine 10 <12 mg/dL [facility] Protein/Creatin ine Ratio, Ur 0.11 <0.2 [facility] Comment:The spot urine prote in:creatinine ratio may increase to 0.3during normal . 06/19/2024 12:0 0 PM EDT 06/19/2024 1:25 PM EDT us Generic External Data Provider LAB URINE ORDERAB LES Final Result Performing Organization Address [facility] Co de Phone Number [facility] [address] [place] [phone] * (ABNORMAL) Urinalysis Complete (06/19/2024 12:00 PM EDT) Color Urine Yellow [facility] Appearance Urine Clear [facility] PH 5.5 5.0 - 9.0 [facility] Glucose Urine UA Negative Negative mg/dL [facility] Urine Blood Trace(A) Negative [facility] Specific Manti - Urine 1.015 1.005 - 1.025 [facility] Urine Protein Negative Neg-Trace mg/dL [facility] Urine Ketones Negative Negative mg/dL [facility] Nitrite Urine Negative Negative [facility] Leukocyte Esterase Urine Negative Negative [facility] RBC Urine 3-5(A) 0 - 2 /HPF [facility] Urine WBC 0-5 0 - 5 /HPF [facility] Urine Squamous Epithelial Cell 6-10 0 - 2 /HPF [facility] Urine Bacteria 2+ None Seen [facility] Hyaline Casts, Urine 0-2 0 - 2 /LPF [facility] 06/19/2024 12:0 0 PM EDT 06/19/2024 1:25 PM EDT us Generic External Data Provider LAB URINE ORDERAB LES Final Result Performing Organization Address [facility] Co de Phone Number [facility] [address] [place] [address] [phone] documented in this encounter Visit Diagnoses Not on filedocumented in this encounter Care Teams Certified First Assistant Relationship Specialty Start Date End Date Cristy Monet MD [address] [place] [address], [place] [address] PCP - General Family Medicine 12/12/19 Sung Rand, Bill [address] [place] [address] Pharmacist Internal Medicine 05/27/24 documented as of this encounter
--- OUTSIDE RECORDS SUMMARY | 2024-06-19 14:33 | XMS_ITS | Encounter Summary ---
Author Organization [facility] Address [address] [place] [address] 7t [place] [address] Care Team Providers Care Informatica Architect Name Role Phone Cristy Monet MD Primary Care Provider + Sung Rand PharmD Unavailable [phone] Encounter Details Date Type Department Care Team (Late st Contact Info) Description 03/24/2022 Telephone [facility] [address] [place] [phone] Kalina Page RN Social History Tobacco Use [...] Info) Description 08/12/2024 2:00 PM EDT Telemedicine [facility] [address] [place] [phone] Sung Rand, PharmD [address] [place] [phone] 08/22/2024 10:30 AM EDT Office Visit [facility] [address] [place] [phone] Cristy Monet MD [address] [place] [phone] documented as of this encounter Visit Diagnoses Not on filedocumented in this encounter Care Teams Informatica Architect Relationship Specialty Start Date End Date Cristy Monet MD [address] [place] [address] PCP - General Family Medicine 12/12/19 Sung Rand, DaeD [address] [place] [phone] Pharmacist Internal Medicine 05/27/24 documented as of this encounter
--- OUTSIDE RECORDS SUMMARY | 2024-06-19 14:34 | XMS_ITS | Encounter Summary ---
Author Organization [employer] Address [address] 7t [place] [address] Care Team Providers Care Clinical Nurse Name Role Phone Cristy Monet MD Primary Care Provider + Sung Rand PharmD Unavailable [phone] Encounter Details Date Type Department Care Team (Late st Contact Info) Description 04/17/[address] [facility] [address] [place] [address] ProviderIda MD Social History Tobacco Use Types [...] Description 08/12/2024 2:[address] [facility] [address] [place] [phone] Sung Rand, PharmD [address] [place] [phone] 08/22/2024 10:30 AM EDT Office Visit [facility] [address] [place] [address] [phone] Cristy Monet MD [address] [place] [phone] documented as of this encounter Procedures Procedure Name Priority Date/Time Associated Diagnosis Comments COLPOSCOPY Routine 04/14/2024 3:06 PM EST documented in this encounter Results * Colposcopy (04/14/2024 3:06 PM EST) Historical Provider IN CLINIC/BEDSIDE ORDERAB LES Final Result documented in this encounter Visit Diagnoses Not on filedocumented in this encounter Care Teams Clinical Nurse Relationship Specialty Start Date End Date Cristy Monet MD [address] [place] [address] [phone] PCP - General Family Medicine 12/12/19 Sung Rand, PharmD [address] [place] [address] [phone] Pharmacist Internal Medicine 05/27/24 documented as of this encounter
--- OUTSIDE RECORDS SUMMARY | 2024-06-19 14:34 | XMS_ITS | Encounter Summary ---
Author Organization [employer] [facility] Address [address] [place] [address] 7t [place] [address] Care Team Providers Care Correction Warden Name Role Phone Cristy Monet MD Primary Care Provider + Sung Rand PharmD Unavailable [phone] Encounter Details Date Type Department Care Team ([facility] Contact Info) Description 09/13/2022 Orders Only [facility] [address] [place] [address] [phone] Cristy Monet MD [address] [place] [address] [phone] Hyperkalemia (Primary Dx); Hypercalcemia Social History Tobacco [...] Info) Description 08/12/2024 2:00 PM EDT Telemedicine [facility] [address] [place] [address] [phone] Sung Rand, PharmD [address] [place], [place] [phone] 08/22/2024 10:30 AM EDT Office Visit [facility] [address] [place] [address] Cristy Monet MD [address] [place] [address] documented as of this encounter Procedures Procedure Name Priority Date/Time Associated Diagnosis Comments BASIC METABOLIC PANEL Routine 09/25/2022 8:41 AM EDT Hyperkalemia Hypercalcemia documented in this encounter Results * (ABNORMAL) Basic Metabolic Panel (09/25/2022 8:41 AM EDT) Sodium 138 135 - 145 mmol/L [facility] Potassium 5.0 3.3 - 5.1 mmol/L [facility] Chloride 102 96 - 108 mmol/L [facility] Carbon Dioxide 30(H) 22 - 29 mmol/L [facility] Anion Gap 11(L) 12 - 20 [facility] Urea Nitrogen (BUN) 15 9 - 16 mg/dL [facility] Creatinine, Serum 0.78 0.5 - 1.4 mg/dL [facility] Estimated Glomerular Filt Rate >60 [facility] Comment:NOTE: For -Am erican individuals, multiply the result by 1.210.Chronic Kidney Disease: Estimated GFR < 60 mL/min/1.94l8Etzcef Kidney Disease: Estimated GFR < 15 mL/min/1.73m2 Glucose 96 60 - 115 mg/dL [facility] Calcium 9.6 8.4 - 10.2 mg/dL [facility] Blood Venous blood specimen / Unknown 09/25/2022 8:41 AM EDT 09/25/2022 11:03 AM EDT us Cristy Monet MD LAB BLOOD ORDERABLES Fin al Result [facility] [address] [place] [address] [phone] documented in this encounter Visit Diagnoses Diagnosis Hyperkalemia- Primary Hyperpotassemia Hypercalcemia documented in this encounter Care Teams Correction Warden Relationship Specialty Start Date End Date Cristy Monet MD [address] [place] [address] PCP - General Family Medicine 12/12/19 Sung Rand, Bill [address] [place] [phone] Pharmacist Internal Medicine 05/27/24 documented as of this encounter
[2024-06-20 14:03] LABS: Cardiolipin IgG Ab <2.0 GPL-U/mL; Cardiolipin IgM Ab <2.0 MPL-U/mL
[2024-06-20 15:39] LABS: Complement C3 114 mg/dL (83-193)
[2024-06-23 08:03] LABS: Beta-2 Glycoprotein IgA <2.0 U/mL (<20.0); Beta-2 Glycoprotein IgG <2.0 U/mL (<20.0); Beta-2 Glycoprotein IgM <2.0 U/mL (<20.0)
[2024-06-24 14:24] LABS: Anti Nuclear Antibody Pattern Nuclear, Speckled; Anti Nuclear Antibody Screen POSITIVE (NEGATIVE)
[2024-06-24 21:34] LABS: Anti DNA DS Antibody <1 IU/mL; Antibody to SS-A Antigen <1.0 NEG AI (<1.0 NEG); Antibody to SS-B Antigen <1.0 NEG AI (<1.0 NEG); SM/Ribonucleoprotein Ab <1.0 NEG AI (<1.0 NEG); Scleroderma 70 Antibody <1.0 NEG AI (<1.0 NEG); Smith Protein <1.0 NEG AI (<1.0 NEG)
[2024-06-25 05:08] LABS: Hexagonal Phase Neutralization Negative (Negative); PTT (LAC) Screen 44 sec (<=40)
== END 2024-06-19 10:51 | disposition home or self-care (01) ==
LOC: HO.LAB 10:50
PROVIDERS: PCP Internal Medicine; Visit Provider Student in an Organized Health Care Education/Training Program
DX: M06.00 Rheumatoid arthritis without rheumatoid factor, unspecified site (principal); Z79.899 Other long term (current) drug therapy; M19.90 Unspecified osteoarthritis, unspecified site; R76.8 Other specified abnormal immunological findings in serum; Z79.01 Long term (current) use of anticoagulants
CPT/HCPCS: 36415; 80053; 81001; 82570; 84156; 85025; 85597; 85598; 85613; 85652; 85730; 86038; 86039; 86140; 86146; 86147; 86160; 86225; 86235; 99212

== ENCOUNTER 2024-07-01 07:55 | Emergency (ER) | payer OTHER, SELFPAY ==
[2024-07-01] VITALS (9 sets, daily range): BP systolic 112–183; BP diastolic 72–96; PULSE 52–73; RESP 12–19; TEMP 36.2–37; O2SAT 95–98; BMI 20.5
--- NOTE | ~2024-07-01 | CT_ITS ---
EXAMINATION: CT HEAD WITHOUT CONTRAST CLINICAL INFORMATION: Technique COMPARISON: None available. TECHNIQUE: Contiguous axial imaging was performed from the skull base to vertex without intravenous administration of contrast. This CT examination was performed using dose optimization techniques as appropriate, variously including the following: *Automated exposure control *Adjustment of mA and/or kV according to patient size (this includes techniques or standardized protocols for targeted exams where dose is matched to indication/reason for exam; i.e. extremities or head) *Use of iterative reconstruction technique DLP: 548 mGy/cm. FINDINGS: No acute intra-axial, extra-axial bleed, masses or midline shift. There is no acute infarction evolution. There is no edema. Cui to white matter differentiation is maintained normal. The lateral ventricles are symmetrical in size and configuration without enlargement. Bone windows reveal no calvarial abnormality. There is no scalp soft tissue body. Bilateral paranasal sinuses and mastoid air cells are well-aerated. CT/CT head/brain wo IV con IMPRESSION: No acute intracranial process seen. Electronically signed by: Graeme Castillo MD 07/01/2024 09:17 AM EDT
--- NOTE | 2024-07-01 08:45 | ED_ITS ---
HPI - General Adult General Chief complaint: General Medical Stated complaint: High BP Time Seen by Provider: 07/01/24 08:33 Source: patient Mode of arrival: ambulatory Limitations: no limitations History of Present Illness HPI narrative: This is a 68 years old with chronic hypertension presented to emergency department because elevated BP. Denies chest pain shortness of breath. She is on Lopressor 25 mg hydrochlorothiazide, clonidine and losartan. She has no taking her BP medication today Onset (ago): day(s) (1) Location: head Radiation: non-radiation Severity: moderate Pain Consistency: constant Relieving factors: none Exacerbating factors: none Associated symptoms: denies other symptoms Related Data Home Medications ?Medication ?Instructions ?Recorded ?Confirmed aripiprazole 5 mg tablet 5 mg PO DAILY 05/09/23 07/01/24 calcium 500 mg (as 1 tab PO BID 05/09/23 07/01/24 carbonate)-vitamin D3 5 mcg (200 unit) tablet (Oyster Shell Calcium-Vitamin D3) hydrochlorothiazide 25 mg tablet 25 mg PO DAILY 05/09/23 07/01/24 losartan 100 mg tablet 100 mg PO DAILY 05/09/23 07/01/24 metoprolol tartrate 25 mg tablet 25 mg PO BID 05/09/23 07/01/24 pravastatin 40 mg tablet 40 mg PO DAILY 05/09/23 07/01/24 zolpidem 5 mg tablet 5 mg PO BEDTIME PRN Insomnia 05/09/23 07/01/24 citalopram 20 mg tablet 20 mg PO DAILY 06/13/23 07/01/24 ipratropium 20 mcg-albuterol 100 inhalation 06/13/23 06/19/24 mcg/actuation mist for inhalation (Combivent Respimat) clonidine HCl 0.1 mg tablet 0.1 mg PO BID 07/01/24 07/01/24 clonidine HCl 0.1 mg tablet 0.1 mg PO BID 07/01/24 07/01/24 Previous Rx's ?Medication ?Instructions ?Recorded isoniazid 300 mg tablet 300 mg PO DAILY 30 days #30 tabs 12/31/23 pyridoxine (vitamin B6) 50 mg 50 mg PO DAILY 30 days #30 tabs 12/31/23 tablet hydroxychloroquine 200 mg tablet 200 mg PO .COMPLEX 90 days #180 06/19/24 (Plaquenil) tabs Allergies Allergy/AdvReac Type Severity Reaction Status Date / Time No Known Allergies Allergy Mild Verified 07/01/24 08:05 Review of Systems 2 Constitutional: Constitutional: Reports no additional constitutional complaints ENT: Reports system reviewed and no additional complaints, except as documented Cardiovascular: Cardiovascular: Reports no additional cardiovascular complaints [facility] Past Medical History Attestation statement: The following information was validated with the patient. [facility] Narrative: Hypertension, seronegative rheumatoid arthritis Medical History Long-term use of Plaquenil Seronegative rheumatoid arthritis Positive TB test Encounter before starting medication Smoker unmotivated to quit Inflammatory arthritis Bilateral hand swelling Joint pain in both hands High blood cholesterol HTN (hypertension) Surgical History Hx of esophagogastroduodenoscopy Hx of colonoscopy Social History Social History Household Members Other:: lives alone Are you a primary college and career counselor to a significant other at home: No Do you presently have visiting nurse or other home services: No Alcohol intake: current Alcohol intake frequency: a few times a week Alcohol type: beer Patient Tobacco Use Status: Current everyday Tobacco user Tobacco use type: Cigarette Cigarette Packs Per Day: 1 Cigarettes Per Day: 6 Second Hand Smoke Exposure: No Substance Use Type: Marijuana Physical Exam ED Vital Signs: Vital Signs - 24 hr 07/01/24 07:57 07/01/24 09:03 07/01/24 09:03 Temperature 97.2 F Pulse Rate 73 67 Respiratory Rate 12 Blood Pressure 142/95 H 176/89 H 142/95 H Pulse Oximetry 96 Oxygen Delivery Method Room Air Oxygen Flow Rate 07/01/24 09:10 07/01/24 11:33 07/01/24 11:35 Temperature 98.1 F Pulse Rate 63 Respiratory Rate 14 Blood Pressure 183/96 H 178/96 H 178/96 H Pulse Oximetry Oxygen Delivery Method Room Air Oxygen Flow Rate 96 07/01/24 12:55 07/01/24 13:05 07/01/24 15:01 Temperature 97.5 F 97.6 F 98.6 F Pulse Rate 58 52 56 Respiratory Rate 19 14 18 Blood Pressure 134/83 112/72 121/81 Pulse Oximetry 95 95 98 Oxygen Delivery Method Room Air Nasal Cannula Room Air Oxygen Flow Rate 07/01/24 15:06 Temperature 98.6 F Pulse Rate 56 Respiratory Rate 18 Blood Pressure 121/81 Pulse Oximetry 98 Oxygen Delivery Method Room Air Oxygen Flow Rate BMI result Body Mass Index 20.5 No acute distress looks comfortable Const General: cooperative Nutritional Appearance: average body habitus Orientation/consciousness: patient oriented x3 Limitations: no limitations HENMT Head: Yes normal to inspection General nose exam: Normal external nose present Face and sinus: Yes normal facial exam Neck Neck: Yes normal visual inspection Chest Chest palpation & inspection: normal inspection of the chest Resp Effort & Inspection: normal respiratory effort Auscultation: clear to auscultation bilaterally Cardio Jugular venous distension: no JVD Rate: regular rate Rhythm: regular rhythm GI Inspection: Yes normal to inspection Palpation (GI): Soft to palpation, not firm and nontender Percussion: Yes normal to percussion Skin General skin exam: no rashes or lesions noted Lesions: no lesions Rashes: no rashes Neuro General: patient oriented x3 Medications Administered Discontinued Medications Generic Name Dose Route Start Last Admin Trade Name Bryanq PRN Reason Stop Dose Admin Clonidine HCl 0.1 mg 07/01/24 11:23 07/01/24 11:35 Clonidine Hcl 0.1 Mg Tablet PO 07/01/24 11:24 0.1 mg ONCE ONE Administration Protocol Hydrochlorothiazide 25 mg 07/01/24 11:23 07/01/24 11:33 Hydrochlorothiazide 25 Mg Tablet PO 07/01/24 11:24 25 mg ONCE ONE Administration Protocol Losartan Potassium 100 mg 07/01/24 08:44 07/01/24 09:03 Losartan Potassium 50 Mg Tablet PO 07/01/24 08:45 100 mg ONCE ONE Administration Protocol Metoprolol Tartrate 25 mg 07/01/24 08:44 07/01/24 09:03 Metoprolol Tartrate 25 Mg Tablet PO 07/01/24 08:45 25 mg ONCE ONE Administration Protocol Medical Decision Making Medical Decision Making [facility] Narrative: Patient is here with elevated blood pressure we will check labs EKG we will monitor On re-examination blood pressure 121/81 no chest Differential Diagnosis Differential Diagnoses: The differential diagnosis associated with the presentation includes Hypertension/noncompliant with medicine/hypertensive urgency Admission/Observation Consideration of admission/observation: Escalation of care including admission/observation considered Lab Data [facility] Lab Attestation statement: I reviewed the patient's lab results. 07/01/24 09:15 07/01/24 09:16 Labs: Lab Results 07/01/24 07/01/24 Range/Units 09:15 09:16 WBC 6.3 (4.8-10.8) X10*3/uL RBC 4.52 (4.20-5.50) X10*6/uL Hgb 14.3 (12.0-16.0) g/dl Hct 41.2 (37.0-47.0) % MCV 91.2 (80.0-98.0) fL MCH 31.6 (27.0-33.0) pg MCHC 34.7 (31.0-35.0) g/dl RDW 11.8 (11.0-16.0) % Plt Count 292 (160-400) X10*3/uL MPV 8.6 L (9.4-12.3) fL Immature Gran % (Auto) 0.3 (0.0-0.4) % Neut % (Auto) 67.4 (45-73) % Lymph % (Auto) 22.2 (20-40) % Storey % (Auto) 8.9 (2-11) % Eos % (Auto) 0.6 (0-4) % Baso % (Auto) 0.6 (0-2) % Lymph # (Auto) 1.4 (1.2-4.9) X10*3/uL Storey # (Auto) 0.6 (0.1-1.2) X10*3/uL Eos # (Auto) 0.0 (0.0-0.4) X10*3/uL Baso # (Auto) 0.0 (0.0-0.2) X10*3/uL Abs Immat Gran (auto) 0.02 (0.00-0.03) X10*3/uL Absolute Neuts (auto) 4.2 (2.0-8.3) x10*3/uL Absolute Nucleated RBC 0.000 (0.0-0.012) X10*3/uL Nucleated RBC % (auto) 0.0 (0.0-0.2) /100WBC Sodium 133 L (135-145) mmol/L Potassium 5.0 D (3.3-5.1) mmol/L Chloride 97 (96-108) mmol/L Carbon Dioxide 25 (22-29) mmol/L Anion Gap 16 (12-20) BUN 15 (9-16) mg/dL Creatinine 0.81 (0.5-1.4) mg/dL Estim Creat Clear Calc 56.4 Estimated GFR > 60 Random Glucose 100 (60-115) mg/dL Calcium 9.7 (8.4-10.2) mg/dL Total Bilirubin 0.8 (0.0-1.0) mg/dL AST 42 H (5-31) U/L ALT 20 (0-31) U/L Alkaline Phosphatase 118 H (39-117) U/L Troponin I High Sens < 2.7 (<3.5-17.0) ng/L Total Protein 7.7 (6.5-8.0) g/dL Albumin 4.5 (3.5-5.0) g/dL Discharge Plan Discharge Clinical Impression: Hypertension Qualifiers: Hypertension type: primary hypertension Qualified Code(s): I10 - Essential (primary) hypertension Patient Disposition: Home, Self-Care Instructions: Hypertension (ED) Prescriptions: No Action clonidine HCl 0.1 mg tablet 0.1 mg PO BID clonidine HCl 0.1 mg tablet 0.1 mg PO BID citalopram 20 mg tablet 20 mg PO DAILY Combivent Respimat 20-100 mcg/actuation mist inhalation hydroxychloroquine [Plaquenil] 200 mg tablet 200 mg PO .COMPLEX 90 Days Qty: 180 1RF Rx Instructions: Take 1 tablets daily from Sunday to Sunday and 1 tablet twice a day Sunday and Sunday losartan 100 mg tablet 100 mg PO DAILY metoprolol tartrate 25 mg tablet 25 mg PO BID hydrochlorothiazide 25 mg tablet 25 mg PO DAILY calcium carbonate-vitamin D3 [Oyster Shell Calcium-Vit D3] 500 mg-5 mcg (200 unit) tablet 1 tab PO BID zolpidem 5 mg tablet 5 mg PO BEDTIME PRN (Reason: Insomnia) pravastatin 40 mg tablet 40 mg PO DAILY aripiprazole 5 mg tablet 5 mg PO DAILY isoniazid 300 mg tablet 300 mg PO DAILY 30 Days Qty: 30 5RF pyridoxine (vitamin B6) 50 mg tablet 50 mg PO DAILY 30 Days Qty: 30 5RF Referrals: Cristy Monet MD [Primary Care Provider] - 2 days Interventions: ED Discharge Assessment Last Done: 07/01/24 15:06 Discharge Date/Time: 07/01/24 15:16 Print Language: Azeri
--- NOTE | 2024-07-01 08:45 | ECG_ITS ---
Test Reason : chest pain Blood Pressure : */* mmHG Vent. Rate : 54 BPM Atrial Rate : 54 BPM P-R Int : 150 ms QRS Dur : 76 ms QT Int : 426 ms P-R-T Axes : 66 42 55 degrees QTcB Int : 403 ms Sinus bradycardia Otherwise normal ECG When compared with ECG of 14-Nov-2023 17:15, No significant change was found Referred By: Jhon Ramirez Electronically Signed By: Juan Garcia
--- OUTSIDE RECORDS SUMMARY | 2024-07-01 08:45 | XMS_ITS | Encounter Summary ---
Author Organization [employer] Address [address] [place] [address] Care Team Providers Care Gun Stocker Name Role Phone Cristy Monet MD Primary Care Provider + Sung Rand PharmD Unavailable [phone] Encounter Details Date Type Department Care Team (Latest Contact Info) Description 06/30/2024 Travel Social History Tobacco Use Types Packs/Day Years [...] Info) Description 08/12/2024 2:00 PM EDT Telemedicine [facility] [address] [place] [phone] Sung Rand, PharmSymone [address] [place] [phone] 08/22/2024 10:30 AM EDT Office Visit [facility] [address] [place] [phone] Cristy Monet MD [address] [place] [phone] documented as of this encounter Visit Diagnoses Not on filedocumented in this encounter Care Teams Gun Stocker Relationship Specialty Start Date End Date Cristy Monet MD [address] [place] [phone] PCP - General Family Medicine 12/12/19 Sung Rand, PharmSymone [address] [place] [phone] Pharmacist Internal Medicine 05/27/24 documented as of this encounter
--- OUTSIDE RECORDS SUMMARY | 2024-07-01 08:45 | XMS_ITS | Clinical Summary ---
Author Organization [employer] Address [address] [facility] [address] [place] [address] Care Team Providers Care Manager Of Pmo Name Role Phone Patrick Monet MD Primary Care Provider + Sung Rand PharmD Unavailable [phone] Allergies Active Allergy Reactions Criticality Noted Date [...] for wheezing. 18 g 3 06/27/19 24 Active Umeclidinium [place] (Incruse Ellipta) 62.5 MCG/ACT aerosol powder Inhale [...] BEFORE MEALS 60 capsule 06/11/19 25 Active cloNIDine (Catapres) 0.1 MG tabletIndication [...] get labs done today and f/u with civil preparedness training officer Assessment & Plan (06/27/2023 9:57 AM EDT): [...] asymptomatic I will refer to rheumatology in [facility] to improve compliance w/ appointment Assessment & [...] Encounters Date Type Department Care Team Description 06/30/2024 7:00 PM EDT Office Visit [facility] [address] [place] [address] 06/30/2024 Travel 06/19/2024 Orders Only GENERIC EXTERNAL DATA DEPARTMENT Provider, Generic External Data 06/10/2024 Refill [facility] MEDICINE [address] [place] [address] Patrick Monet MD Resistant hypertension 06/09/2024 Orders Only [facility] CH[facility] MED & PEDS [address] [place] [address] ProviderIda MD 05/29/2024 Refill [facility] [address] [place] [address] Patrick Monet MD HTN (hypertension), benign 05/20/2024 Travel 05/09/2024 Refill [facility] [address] [place] [address] Patrick Monet MD Resistant hypertension 05/02/2024 Orders Only GENERIC EXTERNAL DATA DEPARTMENT Provider, Generic External Data 04/17/2024 Orders Only [facility] MED[facility] [address] [place] [address] Ida Augustin MD 04/17/2024 Telephone [facility] [address] [place] [address] Patrick Monet MD No Show 04/15/2024 Orders Only [facility] [address] [place] [address] Patrick Monet MD 04/11/2024 Orders Only GENERIC EXTERNAL DATA DEPARTMENT Provider, Generic External Data 04/10/2024 Refill [facility] [address] [place], [place] [phone] Olivia Ferguson MD Resistant hypertension from Last 3 Months Immunizations Name Administration [...] free 01/20/2014 Pfizer Covid-19 Vaccine 12+ 01/04/2021, 1 Pneumococcal Polysaccharide PPSV23 08/11/2012,,10/17/2007 TD (adult), 2 [...] your housing situation today? I have pool patricia 01/01/[address] you li [...] Sign Reading Time Taken Comments Blood Pressure 181/104 06/30/2024 7:13 PM EDT Pulse 65 06/30/2024 7:13 PM EDT Temperature 35 ??C (95 ??F) 06/30/2024 7:13 PM EDT Respiratory Rate 16 06/30/2024 7:13 PM EDT Oxygen Saturation 99% 01/14/2024 1:13 PM EST Inhaled Oxygen Concentration - - Weight 54.2 kg (119 lb 6.4 oz) 06/30/2024 7:13 P M EDT Height 160 cm (5' 3 ) 01/14/2024 1:13 PM EST Body Mass Index 21.15 01/14/2024 1:13 PM EST Plan of Treatment Upcoming Encounters Date Type Department Care Team (Late st Contact Info) Description 08/12/2024 2:00 PM EDT Telemedicine [facility] MEDIC[facility] [address] [place], [place] [phone] Sung Rand, PharmD [address] [place], [place] [phone] 08/22/2024 10:30 AM EDT Office Visit [facility] MED[facility]INE [address] [place] [phone] Patrick Monet MD [address] [place], [place] [phone] Health Maintenance Due Date Last Done Comments [...] 10/17/2024 10/18/2023, 08/07/2022 Pap Smear 10/30/2024 10/18/2023, 06/0 07/2022, 08/07/2022, Additional history exists Tobacco Screening 05/27/2025 [...] Procedure Name Priority Date/Time Associated Diagnosis Comments LUPUS ANTICOAGULANT EVALUATION WITH REFLEX Routine 06/19/2024 12:02 PM EDT DNA (DS) ANTIBODY Routine 06/19/2024 12: 02 PM EDT SCL-70 ANTIBODY Routine 06/19/2024 12:02 PM EDT SM AND SM/HISTORICAL RECORDS ADMINISTRATOR ANTIBODIES Routine 06/19/2024 12:02 PM EDT SJOGREN'S ANTIBODIES (SS-A,SS-B) Routine 06/19/2024 12:02 PM EDT PATRICK SCREEN, IFA, W/REFL TITER AND PATTERN Routine 06/19/2024 12:02 PM EDT MNRJ-1-USNIIRJYHXWY I ANTIBODIES (IGG, IGA, IGM) Routine 06/19/2024 12:02 PM EDT COMPLEMENT COMPONENT C4C Routine 06/19/2024 12:02 PM EDT COMPLEMENT COMPONENT C3C Routine 06/19/2024 12:02 PM EDT CARDIOLIPIN AB (IGA,IGG,IGM) Routine 06/19/2024 12:02 PM EDT SED RATE [...] Recently Relevant to Health Maintenance Results * Yxqx-2-Mbiaxrmsqtrl I Antibodies (IgG, IgA, IgM) (06/19/2024 12:02 PM EDT) B2 Glycoprotein I IgG Antibody <2.0 <20.0 U/mL [facility] Comment:Value Interpretation ----- < 20.0 Antibody not detected> or = 20.0 Antibody detected B2 Glycoprotein I IgM Antibody <2.0 <20.0 U/mL [facility] Comment:Value Interpretation ----- < 20.0 Antibody not detected> or = 20.0 Antibody detected B2 Glycoprotein I IgA Antibody <2.0 <20.0 U/mL [facility] Comment: Value ?Interpretation----- ? < 20.0 ? Antibody not detected> or = 20.0 ?Antibody detectedThe antiphospholipid antibody syndrome (APS) is aclinical-pathologic correlation that includes aclinical event (e.g. arterial or venous thrombosis, morbidity) and persistent positiveantiphospholipid antibodies (IgM, IgG Cardiolipin sqb0AXC antibodies greater than the 99th percentile;or a lupus anticoagulant). International consensusguidelines for APS suggest waiting at least 12 weeksbefore retesting to confirm antibody persistence.The Systemic Lupus International Collaborating Clinicsimmunological classification criteria for systemiclupus erythematosus (SLE) include testing forisotype IgA, which has yet to be incorporated intoAPS criteria. Low level antiphospholipid antibodiesmay sometimes be detected in the setting of infection,drug therapy or aging.For additional information, please refer tohttp://education.[employer]faq/DHP221(This link is being provided for informational/educational purposes only.)THIS TEST WAS PERFORMED AT:[facility] [id number] [place], [place] ??[phone] W. MASON,MD,PHD 06/19/2024 12:0 2 PM EDT 06/19/2024 12:02 PM EDT Generic External Data Provider LAB BLOOD ORDERAB LES Final Result Performing Organization Address [facility] Co de Phone Number [facility] [address] [place] [phone] * Sm and Sm/HISTORICAL RECORDS ADMINISTRATOR Antibodies (06/19/2024 12:02 PM EDT) SM Antibody <1.0 NEG <1.0 NEG [facility] SM/HISTORICAL RECORDS ADMINISTRATOR Antibody <1.0 NEG <1.0 NEG [facility] Comment:THIS TEST WAS PERFOR MED AT:[facility] [address] [phone] MEDINA MD 06/19/2024 12:0 2 PM EDT 06/19/2024 12:02 PM EDT Generic External Data Provider LAB BLOOD ORDERAB LES Final Result Performing Organization Address [facility] Co de Phone Number [facility] [address] [place] [phone] * Sjogren's Antibodies (SS-A,SS-B) (06/19/2024 12:02 PM EDT) Sjogren's Antibody (SS-A) <1.0 NEG <1.0 NEG [facility] Sjogren's Antibody (SS-B) <1.0 NEG <1.0 NEG [facility] Comment:THIS TEST WAS PERFOR MED AT:[employer] [place] [phone] MEDINA MD 06/19/2024 12:0 2 PM EDT 06/19/2024 12:02 PM EDT us Generic External Data Provider LAB BLOOD ORDERAB LES Final Result [facility] [address] [place] [address] [phone] * CBC auto differential (06/19/2024 12:02 PM EDT) White Blood Count 7.6 4.8 - 10.8 X10*3/uL [facility] Red Blood Count 4.34 4.20 - 5.50 X10*6/uL [facility] Hemoglobin 13.8 12.0 - 16.0 g/dl [facility] Hematocrit 40.5 37.0 - 47.0 % [facility] Mean Corpuscular Volume 93.3 80.0 - 98.0 fL [facility] Mean Corpuscular Hemoglobin 31.8 27.0 - 33.0 pg [facility] Mean Corpuscular HGB Conc 34.1 31.0 - 35.0 g/dl [facility] Red Cell Distribution Width 11.6 11.0 - 16.0 % [facility] Platelet Count 275 160 - 400 X10*3/uL [facility] Mean Platelet Volume 10.0 9.4 - 12.3 fL [facility] Neutrophils Percent Auto 59.0 45 - 73 % [facility] Imm Gran Pct Auto 0.4 0.0 - 0.4 % [facility] Lymphocytes Percent Auto 30.7 20 - 40 % [facility] Monocytes Percent Auto 7.9 2 - 11 % [facility] Eosinophils Percent Auto 1.3 0 - 4 % [facility] Basophils Percent Auto 0.7 0 - 2 % [facility] NRBC Pct Auto 0.0 0.0 - 0.2 /100WBC [facility] Neutrophils Absolute Auto 4.5 2.0 - 8.3 x10*3/uL [facility] Imm Gran Abs Auto 0.03 0.00 - 0.03 X10*3/uL [facility] Lymphocytes Absolute Auto 2.3 1.2 - 4.9 X10*3/uL [facility] Monocytes Absolute Auto 0.6 0.1 - 1.2 X10*3/uL [facility] Eosinophils Absolute Auto 0.1 0.0 - 0.4 X10*3/uL [facility] Basophils Absolute Auto 0.1 0.0 - 0.2 X10*3/uL [facility] NRBC Abs Auto 0.000 0.0 - 0.012 X10*3/uL [facility] 06/19/2024 12:0 2 PM EDT 06/19/2024 12:02 PM EDT Generic External Data Provider LAB BLOOD ORDERAB LES Final Result Performing Organization Address [facility] de Phone Number [facility] [address] [place] [phone] * SCL-70 Antibody (06/19/2024 12:02 PM EDT) SCL-70 Antibody <1.0 NEG <1.0 NEG AI [facility] Comment:THIS TEST WAS PERFOR MED AT:[employer] [place] [phone] MEDINA MD 06/19/2024 12:0 2 PM EDT 06/19/2024 12:02 PM EDT us Generic External Data Provider LAB BLOOD ORDERAB LES Final Result Performing Organization Address [facility] Co de Phone Number [facility] [address] [place] [address] [phone] * DNA (ds) Antibody (06/19/2024 12:02 PM EDT) Pathologist [facility] Anti DNA DS Antibody <1 IU/mL [facility] Comment:IU/mL Interpretation < or = 4 Negative 5-9 Indeterminate > or = 10 PositiveTHIS TEST WAS PERFORMED AT:[facility] [address] [phone] MEDINA MD 06/19/2024 12:0 2 PM EDT 06/19/2024 12:02 PM EDT us Generic External Data Provider LAB BLOOD ORDERAB LES Final Result [facility] [address] [place] [phone] * (ABNORMAL) Lupus Anticoagulant Evaluation with Reflex (06/19/2024 12:02 PM EDT) [facility] Lupus Interpretation see note [facility] Comment:A Lupus Anticoagulan t is not detected.Common causes for a prolonged screen and negativeconfirmatory test include factor deficiencies oranticoagulant therapy.Reference Range: Not DetectedFor additional information, please refer tohttp://education.[employer]faq/FIM90g5(This link is being provided for informational/educational purposes only.)This interpretation is based on the following testresults. PTT (LAC) Screen 44(A) <=40 sec [facility] DRVVT Screen 39 <=45 sec [facility] dRVVT Confirmation TNP [facility] dRVVT 1:1 Mix TNP [facility] DRVVT 1:1 Mix [facility]ation [facility] Hexagonal Phase Neutralization Negative Negative [facility] Comment:THIS TEST WAS PERFOR MED AT:[employer] [id number] [place] [phone] LUA MD,PHD Thrombin Clotting Time TNP [facility] 06/19/2024 12:0 2 PM EDT 06/19/2024 12:02 PM EDT us Generic External Data Provider LAB BLOOD ORDERAB LES Final Result [facility] [address] [place] [address] [phone] * Cardiolipin Antibodies (IgA,IgG,IgM) (06/19/2024 12:02 PM EDT) Cardiolipin Antibody (IgG) <2.0 GPL-U/mL [facility] Comment:Value Interpretation ----- < 20.0 Antibody not detected> or = 20.0 Antibody detected Cardiolipin Antibody (IgM) <2.0 MPL-U/mL [facility] Comment: Value ?Interpretation----- ? < 20.0 ? Antibody not detected> or = 20.0 ?Antibody detectedThe antiphospholipid antibody syndrome (APS) is aclinical-pathologic correlation that includes aclinical event (e.g. arterial or venous thrombosis, morbidity) and persistent positiveantiphospholipid antibodies (IgM, IgG Cardiolipin ped0TVE antibodies greater than the 99th percentile; ora lupus anticoagulant). International consensusguidelines for APS suggest waiting at least 12 weeksbefore retesting to confirm antibody persistence.The Systemic Lupus International CollaboratingClinics immunological classification criteria forsystemic lupus erythematosus (SLE) include testing forisotype IgA, which has yet to be incorporated intoAPS criteria. Low level antiphospholipid antibodiesmay sometimes be detected in the setting of infection,drug therapy or aging.For additional information, please refer tohttp://education.[employer]faq/ODM237(This link is being provided for informational/educational purposes only.)THIS TEST WAS PERFORMED AT:[employer] [place] [address] [phone] MEDINA MD 06/19/2024 12:0 2 PM EDT 06/19/2024 12:02 PM EDT Generic External Data Provider LAB BLOOD ORDERAB LES Final Result Performing Organization Address [facility] Co de Phone Number [facility] [address] [place] [phone] * Sed Rate by Modified Westergren (06/19/2024 12:02 PM EDT) Erythrocyte Sedimentation Rate 14 0 - 20 MM/HR [facility] Comment:Patients with polycy themia and many hemoglobin abnormalitiesmay have depressed sed rates whereas patients with anemiamay have elevated sed rates. 06/19/2024 12:0 2 PM EDT 06/19/2024 12:02 PM EDT Generic External Data Provider LAB BLOOD ORDERAB LES Final Result Performing Organization Address [facility] de Phone Number [facility] [address] [place] [phone] * Complement Component C3c (06/19/2024 12:02 PM EDT) Complement C3 114 83 - 193 mg/dL [facility] Comment:THIS TEST WAS PERFOR MED AT:[facility] [address] [phone] MEDINA MD 06/19/2024 12:0 2 PM EDT 06/19/2024 12:02 PM EDT Generic External Data Provider LAB BLOOD ORDERAB LES Final Result Performing Organization Address [facility] Co de Phone Number [facility] [address] [place] [phone] * Complement Component C4c (06/19/2024 12:02 PM EDT) Complement C4 23 15 - 57 mg/dL [facility] Comment:THIS TEST WAS PERFOR MED AT:[employer] [place] [phone] MEDINA MD 06/19/2024 12:0 2 PM EDT 06/19/2024 12:02 PM EDT Generic External Data Provider LAB BLOOD ORDERAB LES Final Result Performing Organization Address [facility]/ZIP Co de Phone Number [facility] [address] [place] [phone] * C-reactive Protein (06/19/2024 12:02 PM EDT) Pathologist [facility] C Reactive Protein 0.10 < or = 0.50 mg/dL [facility] 06/19/2024 12:0 2 PM EDT 06/19/2024 12:02 PM EDT Generic External Data Provider LAB BLOOD ORDERAB LES Final Result Performing Organization Address [facility] Co de Phone Number [facility] [address] [place] [phone] * (ABNORMAL) PATRICK Screen,IFA, with Reflex to Titer and Pattern (06/19/2024 12:02 PM EDT) Pathologist [facility] Anti Nuclear Antibody Screen POSITIVE (A) NEGATIVE [facility] Comment:PATRICK IFA is a first l ine screen for detecting thepresence of up to approximately 150 autoantibodies invarious autoimmune diseases. A positive PATRICK IFA resultis suggestive of autoimmune disease and reflexes totiter and pattern. Further laboratory testing may beconsidered if clinically indicated.For additional information, please refer tohttp://education.[employer]/faq/BNH495(This link is being provided for informational/educational purposes only.) PATRICK Titer 1:80(A) titer [facility] Comment:A low level PATRICK tite r may be present in pre-clinicalautoimmune diseases and normal individuals. Reference Range <1:40 Negative 1:40-1:80 Low Antibody Level >1:80 Elevated Antibody Level PATRICK Pattern Nuclear, Speckled (A) [facility] Comment:Speckled pattern is associated with mixed connectivetissue disease (MCTD), systemic lupus erythematosus(SLE), Sjogren's syndrome, dermatomyositis, andsystemic sclerosis/polymyositis overlap.AC-2,4,5,29: SpeckledInternational Consensus on PATRICK Patterns(https://doi.org/10.1515/veis-7187-3323)THIS TEST WAS PERFORMED AT:[employer] [place] [phone] MEDINA MD PATRICK TITER 2 (REF LAB) [facility] PATRICK Pattern 2 [facility] PATRICK TITER 3 [facility] PATRICK PATTERN 3 [facility] 06/19/2024 12:0 2 PM EDT 06/19/2024 12:02 PM EDT us Generic External Data Provider LAB BLOOD ORDERAB LES Final Result [facility] [address] [place] [phone] * (ABNORMAL) Comprehensive Metabolic Panel (06/19/2024 12:02 PM EDT) Sodium 134(L) 135 - 145 mmol/L [facility] Potassium 4.0 3.3 - 5.1 mmol/L [facility] Chloride 99 96 - 108 mmol/L [facility] Carbon Dioxide 26 22 - 29 mmol/L [facility] Anion Gap 13 12 - 20 [facility] Urea Nitrogen (BUN) 29(H) 9 - 16 mg/dL [facility] Creatinine, Serum 0.96 0.5 - 1.4 mg/dL [facility] Estimated Glomerular Filt Rate 58 [facility] Comment:Chronic Kidney Disea se: Estimated GFR < 60 mL/min/1.30r5Snnzfx Kidney Disease: Estimated GFR < 15 mL/min/1.73m2 Glucose 86 60 - 115 mg/dL [facility] Calcium 9.5 8.4 - 10.2 mg/dL [facility] Bilirubin, Total 0.3 0.0 - 1.0 mg/dL [facility] Aspartate Amino Transferase 34(H) 5 - 31 U/L [facility] Alanine Aminotransferase 18 0 - 31 U/L [facility] Total Protein 7.6 6.5 - 8.0 g/dL [facility] Albumin Level 4.3 3.5 - 5.0 g/dL [facility] Alkaline Phosphatase 114 39 - 117 U/L [facility] 06/19/2024 12:0 2 PM EDT 06/19/2024 12:02 PM EDT Generic External Data Provider LAB BLOOD ORDERAB LES Final Result Performing Organization Address [facility] de Phone Number [facility] [address] [place] [phone] * Protein Creatinine Ratio, Urine (06/19/2024 12:00 PM EDT) Creatinine, Urine 91.68 mg/dL [facility] Protein, Total, Random Urine 10 <12 mg/dL [facility] Protein/Creatin ine Ratio, Ur 0.11 <0.2 [facility] Comment:The spot urine prote in:creatinine ratio may increase to 0.3during normal . 06/19/2024 12:0 0 PM EDT 06/19/2024 1:25 PM EDT us Generic External Data Provider LAB URINE ORDERAB LES Final Result Performing Organization Address [facility] de Phone Number [facility] [address] [place] [phone] * (ABNORMAL) Urinalysis Complete (06/19/2024 12:00 PM EDT) Color Urine Yellow [facility] Appearance Urine Clear [facility] PH 5.5 5.0 - 9.0 [facility] Glucose Urine UA Negative Negative mg/dL [facility] Urine Blood Trace(A) Negative [facility] Specific [place] - Urine 1.015 1.005 - 1.025 [facility] Urine Protein Negative Neg-Trace mg/dL [facility] Urine Ketones Negative Negative mg/dL [facility] Nitrite Urine Negative Negative [facility] Leukocyte Esterase Urine Negative Negative [facility] RBC Urine 3-5(A) 0 - 2 /HPF [facility] Urine WBC 0-5 0 - 5 /HPF [facility] Urine Squamous Epithelial Cell 6-10 0 - 2 /HPF [facility] Urine Bacteria 2+ None Seen [facility] Hyaline Casts, Urine 0-2 0 - 2 /LPF [facility] 06/19/2024 12:0 0 PM EDT 06/19/2024 1:25 PM EDT us Generic External Data Provider LAB URINE ORDERAB LES Final Result [facility] [address] [place] [phone] * Biopsy cervix (05/02/2024 11:47 AM EST) Historical Provider MD IN CLINIC/BEDSIDE ORDERAB LES Final Result * Hematoxylin and Eosin Stain (05/02/2024 7:49 AM EST) Only the most recent of2 resultswithin the time period is included. 05/02/2024 7:49 AM EST 05/02/2024 8:33 AM EST Narrative [facility] - 05/06/2024 9:57 AM EST ----- ------- Name: Roel,Delilah ? Age/Sex: 68/F ? : 1955 Unit#: [id number] ?? Attend Dr: Niall Pearson MD ?Re05/02/24 ?Status: DEP SDC ? Location: HO.SSS ?Disch: ? ----- ------- SPEC : [id number] ? RECD: 05/02/24 ? STATUS: ??SOUT ? REQ NUM: [id number] ? [place]: 05/02/24 ? SUBM DR: Niall Pearson MD ? ENTERED: ??05/02/24 ?SP TYPE: Surgical ? OTHR DR: Patrick Monet MD ? ORDERED: ??HE Stain/6, Gross [...] ? Age/Sex: 68/F ? : 1955 Unit#: [id number] ?? Attend Dr: Niall Pearson MD ?Re05/02/24 ?Status: DEP SDC ? Location: HO.SSS ?Disch: ? ----- ------- SPEC : [id number] ? RECD: 05/02/24 ? STATUS: ??SOUT ? REQ NUM: [id number] ? [place]: 05/02/24 ? SUBM DR: Niall Pearson MD ? ENTERED: ??05/02/24 ?SP TYPE: Surgical ? OTHR DR: Patrick Monet MD ? ORDERED: ??HE Stain/6, Gross Micro L4/3 ? Copies To: ?? Patrick Monet MD ?? [facility] ?? [address] ?? [place] [address] ?? [phone] ?? Niall Pearson MD ?? [facility] ?? [address] [facility] [address] ?? [place] [address] ?? [phone] ----- ------- Signed (signature on file) Sejal Romero MD 05/06/24 0957 ? ----- ------- ? END OF REPORT ? us Generic External Data Provider LAB BLOOD ORDERAB LES Final Result [facility] [address] [place] [address] [phone] * BI Mammogram Diagnostic Tomosynthesis Bilateral (04/15/2024 10:00 AM EST) Anatomical Region Laterality Modality Breast Bilateral Mammography 04/15/2024 10:0 0 AM EST Narrative 04/15/2024 10:44 AM EST ? [facility] ? [address] ?[place] [address] ? Mammography Report ? Signed ? Patient: Roel,Delilah ?MR#: [id number] ?? 41 ? : 1955 ?Acct:[id number] ? Age/Sex: 68 / F ?ADM Date: 04/15/24 ? Loc: HO.MAMMO ? Attending Dr: Patrick Monet MD ? Ordering Physician: Patrick Monet MD ?Results: 3.6MProbably Benign Finding - Short 6 M F/U ?? Suggested ? Date of Service: 04/15/24 ?Follow Up: 6 Month F/U ? Procedure(s): MM tomosynthesis diagnostic BI ?? Accession Number(s): [id number] ? cc: Patrick Monet MD ? EXAMINATION: ?? MM DIAGNOSTIC [...] DD/ 1000 ? TD/TT: 04/15/24 1036 ? Letter Stamping Machine Operator: ? Procedure Note Shashi Buckner - 04/15/2024 [facility] [address] [place], [place] [address] Mammography Report Signed Patient: Delilah SevillaMR#: [id number] 39 : 8Acct:[id number] Age/Sex: 68 / FADM Date: 04/15/24 Loc: HO.MAMMO Attending Dr: Patrick Monet MD Ordering Physician: Patrick Monet MD Results: 3.6MProbably Benign Finding - Short 6 M F/U Suggested Date of Service: 04/15/24Follow Up: 6 Month F/U Procedure(s): MM tomosynthesis diagnostic BI Accession Number(s): [id number] cc: Patrick Monet MD EXAMINATION: MM DIAGNOSTIC DIGITAL BREAST [...] 04/15/24 1041 DD/ 1000 TD/TT: 04/15/24 1036 Letter Stamping Machine Operator: us Patrick Monet MD IMG BI PROCEDURES Final Result * Colposcopy (04/14/2024 3:06 PM EST) Historical Provider MD IN CLINIC/BEDSIDE ORDERAB LES Final Result * (ABNORMAL) Hm Colonoscopy (12/25/2023) Colonoscopy Abnormal( A) Normal [facility] Comment:TA + hyperplastic po lyps Patrick Monet MD HEALTH MAINTENANCE Final Result Performing Organization Address [facility] [place] Co de Phone Number [facility] [address] [place] [address] [phone] * (ABNORMAL) Lipid Panel, Standard (12/19/2023 9:22 AM EDT) Triglycerides 79 <150 mg/dL [facility] Comment:Desirable Triglyceri de: less than 150 mg/dLBorderline High Triglyceride 150-199 mg/dLHigh Triglyceride: 200-499 mg/dLVery High Triglyceride: greater than or equal to 5OO mg/dL Cholesterol 224(H) <200 mg/dL [facility] Comment:Desirable Cholestero l: less than 200 mg/dLBorderline High Cholesterol: 200-239 mg/dLHigh Cholesterol: greater than 239 mg/dL LDL Cholesterol Calculated 117(H) <100 mg/dL [facility] Comment:Desirable LDL: less than 100 mg/dLNear Optimal/Above Optimal LDL: 110- 129 mg/dLBorderline High LDL: 130-159 mg/dLHigh LDL: 160-189 mg/dLVery High LDL: greater than or equal to 190 mg/dL HDL Cholesterol 92 >40 mg/dL [facility] Comment:Desirable HDL: great er than 40 mg/dL Note: This HDL assay may give artificially low results in patients with liver disease. 12/19/2023 9:22 AM EDT 12/19/2023 11:43 AM EDT Patrick Monet MD LAB BLOOD ORDERABLES Fin al Result Performing Organization Address City/[facility]/ZIP Co de Phone Number [facility] [address] [place] [address] [phone] * Hepatitis Panel, General (12/04/2023 9:36 AM EDT) [facility] Hepatitis A IgM Nonreactive Nonreactive [facility] Comment:IgM antibodies to MARTINES V not detected; does not exclude earlyacute or recovered HAV infection. ~Hepatitis B Surface Antibody REACTIVE Nonreactive [facility] Comment:REACTIVE: > 11.99 mI U/mL Hepatitis B Core Antibody Nonreactive Nonreactive [facility] Hepatitis C Antibody Nonreactive Nonreactive [facility] Comment:Antibodies to HCV no t detected; does not exclude early acuteHCV infection. Hepatitis B Surface Ag Negative Negative [facility] Blood 12/04/2023 9:36 AM EDT 12/04/2023 11:01 AM EDT Patrick Monet MD LAB BLOOD ORDERABLES Fin al Result Performing Organization Address [facility] [place] Co de Phone Number [facility] [address] [place] [address] [phone] * (ABNORMAL) ThinPrep?? Imaging Pap Refl HPV mRNA(if ASCUS,ASC- H,LSIL,HSIL,TWILA)Refl Genotype (10/18/2023 10:43 AM EDT) [facility] HPV nRNA E6/E7 Detected(A ) Not Detected [facility] Comment:Methodology: Transcr iption-Mediated AmplificationThis assay detects E6/E7 viral messenger RNA (mRNA) from 14high-risk HPV types (16,18,31,33,35,39,45,51,52,56,58,59,66,68).Cervical sources are required for HPV testing.If a vaginal source from a patient who has had atotal hysterectomy with removal of cervix wassubmitted, please contact the testing laboratoryfor alternative testing options.For additional information, please refer tohttp://education.[employer]faq/WBQ142e5(This link if provided for information/educational purposes only.)THIS TEST WAS PERFORMED AT:[facility] [address] [id number] MEDINA MD HPV 16,18/45 NOT DETECTED NOT DETECTED [facility] Comment:Methodology: Transcr iption Mediated AmplificationCervical sources are required for HPV testing.If a vaginal source from a patient who has had atotal hysterectomy with removal of cervix wassubmitted, please contact the testing laboratoryfor alternative testing options.THIS TEST WAS PERFORMED AT:[facility] [address] [id number] MEDINA MD SOURCE: SEE NOTE [facility] Comment:None given Report Status: [facility] Clinical Information: SEE NOTE [facility] Comment:None given LMP: SEE NOTE [facility] Comment:NONE GIVEN Prev. PAP: SEE NOTE [facility] Comment:NONE GIVEN Prev. BX: SEE NOTE [facility] Comment:NONE GIVEN Statement Of Adequacy: SEE NOTE [facility] Comment:Satisfactory for naheed luation.Endocervical/transformation zone componentpresent. General Categorization: SEE NOTE(A) [facility] Comment:Cytology Results: Ep ithelial Cell Abnormality Interpretation/Result: SEE NOTE(A) [facility] Comment:Atypical Squamous Ce lls of UndeterminedSignificance (ASC-US) Cytology Comment SEE NOTE [facility] Comment:This Pap test has be en evaluated with computerassisted technology. Distribution Lead: SEE NOTE [facility] Comment:DCR, CT(ASCP)CT scre ening location: [address] [address] Review Distribution Lead: [facility] Pathologist SEE NOTE [facility] Comment:Valerio Romero M.D./M.S .,Board Certified in Anatomic Pathology andBoard Eligible Cytopathology(electronic signature)Consulting PathologistBay[facility] Pathology[address] [place] [address] [phone] PAP Infection [facility] See Note SEE NOTE [facility] Comment:EXPLANATORY NOTE:The Pap is a screening test for cervical cancer. It isnot a diagnostic test and is subject to false negativeand false positive results. It is most reliable when asatisfactory sample, regularly obtained, is submittedwith relevant clinical findings and history, and whenthe Pap result is evaluated along with historic andcurrent clinical information.THIS TEST WAS PERFORMED AT:[facility] ANATOM[facility] PATH[facility] [place] [address]KWIPULETICIA REYEZ MD 10/18/2023 10:4 3 AM EDT 10/18/2023 4:30 PM EDT Narrative [facility] - 10/31/2023 11:52 AM EDT SEE SCANNED RESULTS IN EMR us Patrick Monet MD LAB CYTOLOGY ORDERABLES Final Result [facility] [address] [place] [address] [phone] from Last 3 Months or Most Recently Relevant to Health Maintenance Insurance [facility] HALF-WAY OPTIONS (O D-SNP) Member Subscriber Plan / Payer (Ef fective 2024-Present) Name:Delilah Sevilla Relation to Subscriber:Self Name:Delilah Sevilla Payer ID:Not on file [id number] [place] [facility] [place] Address: [facility] [address] [id number] Care Teams Manager Of Pmo Relationship Specialty Start Date End Date Patrick Monet MD [address] [place] [address] PCP - General Family Medicine 12/12/19 Sung Rand, DaeD [address] [place] [address] Pharmacist Internal Medicine 05/27/24
--- OUTSIDE RECORDS SUMMARY | 2024-07-01 08:45 | XMS_ITS | Encounter Summary ---
Author Organization [employer] Address [address] [facility] 7t [place] [address] Care Team Providers Care Machine Bander And Cellophaner Helper Name Role Phone Cristy Monet MD Primary Care Provider + Sung Rand PharmD Unavailable Reason for Visit * Reason Comments Med Refill Encounter Details Date Type Department Care Team ([facility] Contact Info) Description 01/14/2024 Refill [facility] [address] [place], [place] [phone] Cristy Monet MD [address] [place], [place] [phone] Social History Tobacco Use Types Packs/Day Years [...] Info) Description 08/12/2024 2:00 PM EDT Telemedicine [facility] [address] [place] [address] Sung Rand, Bill [address] [place] [address] 08/22/2024 10:30 AM EDT Office Visit [facility] [address] [place] [address] Cristy Monet MD [address] [place] [address] documented as of this encounter Visit Diagnoses Not on filedocumented in this encounter Care Teams Machine Bander And Cellophaner Helper Relationship Specialty Start Date End Date Cristy Monet MD [address] [place] [address] PCP - General Family Medicine 12/12/19 Sung Rand, Bill [address] [place] [phone] Pharmacist Internal Medicine 05/27/24 documented as of this encounter
--- OUTSIDE RECORDS SUMMARY | 2024-07-01 08:45 | XMS_ITS | Encounter Summary ---
Author Organization [employer] Address [address] [facility] [address] 7[address] [place] [address] Care Team Providers Care Him Clerk Name Role Phone Cristy Monet MD Primary Care Provider + Sung Rand PharmD Unavailable [phone] Encounter Details Date Type Department Care Team (Late st Contact Info) Description 04/17/2024 Orders Only [facility] [address] [place] [address] ProviderIda MD Social History Tobacco Use Types [...] EDT Telemedicine [facility] [address] [place] [phone] Sung Rand, PharmD [address] [place] [address] 08/22/2024 10:30 AM EDT Office Visit [facility] [address] [place] [address] [phone] Cristy Monet MD [address] [place] [address] documented as of this encounter Procedures Procedure Name Priority Date/Time Associated Diagnosis Comments COLPOSCOPY Routine 04/14/2024 3:06 PM EST documented in this encounter Results * Colposcopy (04/14/2024 3:06 PM EST) Historical Provider IN CLINIC/BEDSIDE ORDERAB LES Final Result documented in this encounter Visit Diagnoses Not on filedocumented in this encounter Care Teams Him Clerk Relationship Specialty Start Date End Date Cristy Monet MD [address] [place] [address] [phone] PCP - General Family Medicine 12/12/19 Sung Rand, PharmD [address] [place] [address] [phone] Pharmacist Internal Medicine 05/27/24 documented as of this encounter
--- OUTSIDE RECORDS SUMMARY | 2024-07-01 08:45 | XMS_ITS | Encounter Summary ---
Author Organization [employer] Address [address] [facility] 7t [place] [address] Care Team Providers Care Tire Stripper Name Role Phone Cristy Monet MD Primary Care Provider + Sung Rand PharmD Unavailable [phone] Encounter Details Date Type Department Care Team (Late st Contact Info) Description 09/10/2023 Telephone [facility] [address] [place], [place] [phone] Cristy Monet MD [address] [place], [place] [phone] Social History Tobacco Use Types Packs/Day Years [...] Info) Description 08/12/2024 2:00 PM EDT Telemedicine [facility] [address] [place] [address] Sung Rand, Bill [address] [place] [address] 08/22/2024 10:30 AM EDT Office Visit [facility] [address] [place] [address] Cristy Monet MD [address] [place] [address] documented as of this encounter Visit Diagnoses Not on filedocumented in this encounter Care Teams Tire Stripper Relationship Specialty Start Date End Date Cristy Monet MD [address] [place] [address] PCP - General Family Medicine 12/12/19 Sung Rand, PharmD [address] [place] [phone] Pharmacist Internal Medicine 05/27/24 documented as of this encounter
--- OUTSIDE RECORDS SUMMARY | 2024-07-01 08:45 | XMS_ITS | Encounter Summary ---
Author Organization [facility] Address [address] [place] [address] 7t [place] [address] Care Team Providers Care Formula Technician Name Role Phone Cristy Monet MD Primary Care Provider + Sung Rand PharmD Unavailable [phone] Encounter Details Date Type Department Care Team ([facility] Contact Info) Description 09/13/2022 Orders Only [facility] [address] [place] [address] [phone] Cristy Monet MD [address] [place] [address] [phone] Hyperkalemia (Primary Dx); Hypercalcemia Social History Tobacco [...] Info) Description 08/12/2024 2:00 PM EDT Telemedicine [facility] [address] [place] [address] [phone] Sung Rand, PharmD [address] [place], [place] [phone] 08/22/2024 10:30 AM EDT Office Visit [facility] [address] [place] [address] Cristy Monet MD [address] [place] [address] documented as of this encounter Procedures Procedure Name Priority Date/Time Associated Diagnosis Comments BASIC METABOLIC PANEL Routine 09/25/2022 8:41 AM EDT Hyperkalemia Hypercalcemia documented in this encounter Results * (ABNORMAL) Basic Metabolic Panel (09/25/2022 8:41 AM EDT) Sodium 138 135 - 145 mmol/L [facility] Potassium 5.0 3.3 - 5.1 mmol/L [facility] Chloride 102 96 - 108 mmol/L [facility] Carbon Dioxide 30(H) 22 - 29 mmol/L [facility] Anion Gap 11(L) 12 - 20 [facility] Urea Nitrogen (BUN) 15 9 - 16 mg/dL [facility] Creatinine, Serum 0.78 0.5 - 1.4 mg/dL [facility] Estimated Glomerular Filt Rate >60 [facility] Comment:NOTE: For -Am erican individuals, multiply the result by 1.210.Chronic Kidney Disease: Estimated GFR < 60 mL/min/1.81z9Tkmkrq Kidney Disease: Estimated GFR < 15 mL/min/1.73m2 Glucose 96 60 - 115 mg/dL [facility] Calcium 9.6 8.4 - 10.2 mg/dL [facility] Blood Venous blood specimen / Unknown 09/25/2022 8:41 AM EDT 09/25/2022 11:03 AM EDT us Cristy Monet MD LAB BLOOD ORDERABLES Fin al Result [facility] [address] [place] [address] [phone] documented in this encounter Visit Diagnoses Diagnosis Hyperkalemia- Primary Hyperpotassemia Hypercalcemia documented in this encounter Care Teams Formula Technician Relationship Specialty Start Date End Date Cristy Monet MD [address] [place] [address] PCP - General Family Medicine 12/12/19 Sung Rand, Bill [address] [place] [address] Pharmacist Internal Medicine 05/27/24 documented as of this encounter
--- OUTSIDE RECORDS SUMMARY | 2024-07-01 08:45 | XMS_ITS | Encounter Summary ---
Author Organization [facility] [facility] Address [address] [place] [address] 7t [place] [address] Care Team Providers Care Asbestos Hazard Abatement Worker Name Role Phone Cristy Monet MD Primary Care Provider + Sung Rand PharmD Unavailable [phone] Encounter Details Date Type Department Care Team (Late st Contact Info) Description 07/07/2022 Orders Only [facility] [address] [place] [phone] Odilia Smiley LPN Social History Tobacco Use [...] Info) Description 08/12/2024 2:00 PM EDT Telemedicine [address] [address] Sung Rand, PharmD [address] [place] [address] 08/22/2024 10:30 AM EDT Office Visit [facility] [address] [place] [address] Cristy Monet MD [address] [place] [address] documented as of this encounter Procedures Procedure Name Priority Date/Time Associated Diagnosis Comments BI MAMMOGRAM SCREENING TOMOSYNTHESIS BILATERAL Routine 07/07/2022 1:05 PM EDT documented in this encounter Results * BI Mammogram Screening Tomosynthesis Bilateral (07/07/2022 1:05 PM EDT) Anatomical Region Laterality Modality Breast Bilateral Mammography 07/07/2022 1:05 PM EDT Narrative 07/10/2022 1:12 PM EDT ? [facility] ? [address] ?[place], [place] [address] ? Mammography Report ? Signed ? Patient: Roel,Delilah ?MR#: [id number] ?? 41 ? : 1955 ?Acct:[id number] ? Age/Sex: 66 / F ?ADM Date: 07/07/22 ? Loc: HO.MAMMO ? Attending Dr: Cristy Monet MD ? Ordering Physician: Cristy Monet MD ?Results: 2Be ?? nign Findings ? Date of Service: 07/07/ ?Follow Up: 1 Year From Orig ?? inal Mammogram ? Procedure(s): MM tomosynthesis screening BI ?? Accession Number(s): [id number] ? cc: Cristy Monet MD ? EXAMINATION: [...] 1309 ? DD/ 04 ? TD/TT: ? Agricultural Economist: ACOSTA ? Procedure Note Shashi [place] - 08/31/2022 [facility] [address] [place] [address] [place] [address] Mammography Report Signed Patient: Delilah SveillaMR#: [id number] 39 : 8Acct:[id number] Age/Sex: 66 / FADM Date: 07/07/22 Loc: HO.MAMMO Attending Dr: Cristy Monet MD Ordering Physician: Cristy Monet MDResults: 2Be nign Findings Date of Service: 07/07/22Follow Up: 1 Year From Orig inal Mammogram Procedure(s): MM tomosynthesis screening BI Accession Number(s): [id number] cc: Cristy Monet MD EXAMINATION: MM SCREENING [...] in OV> 07/10/22 1309 DD/ 1305 TD/TT: Agricultural Economist: ACOSTA [facility] External Provider IMG BI PROCEDURES Final Result documented in this encounter Visit Diagnoses Not on filedocumented in this encounter Care Teams Asbestos Hazard Abatement Worker Relationship Specialty Start Date End Date Cristy Monet MD [address] [place], [place] [phone] PCP - General Family Medicine 12/12/19 Sung Rand, DaeD [address] [place], [place] [phone] Pharmacist Internal Medicine 05/27/24 documented as of this encounter
--- OUTSIDE RECORDS SUMMARY | 2024-07-01 08:45 | XMS_ITS | Encounter Summary ---
Author Organization [facility] Address [address] [place] [address] 7t [place] [address] Care Team Providers Care Front Desk Supervisor Name Role Phone Cristy Monet MD Primary Care Provider + Sung Rand PharmD Unavailable [phone] Encounter Details Date Type Department Care Team (Late st Contact Info) Description 03/24/2022 Telephone [facility] [address] [place] [address] Kalina Page RN Social History Tobacco Use [...] Info) Description 08/12/2024 2:00 PM EDT Telemedicine [facility] [address] [place] [address] Sung Rand, PharmD [address] [place] [address] 08/22/2024 10:30 AM EDT Office Visit [facility] [address] [place] [address] Cristy Monet MD [address] [place] [address] documented as of this encounter Visit Diagnoses Not on filedocumented in this encounter Care Teams Front Desk Supervisor Relationship Specialty Start Date End Date Cristy Monet MD [address] [place] [address] PCP - General Family Medicine 12/12/19 Sung Rand, aDeD [address] [place] [address] Pharmacist Internal Medicine 05/27/24 documented as of this encounter
--- OUTSIDE RECORDS SUMMARY | 2024-07-01 08:45 | XMS_ITS | Encounter Summary ---
Author Organization [email or web address] [facility] Address [address] [place] [address] 7t [place] [address] Care Team Providers Care Septic Technician Name Role Phone Cristy Monet MD Primary Care Provider + Sung Rand PharmD Unavailable [phone] Encounter Details Date Type Department Care Team (Late st Contact Info) Description 03/28/2022 Orders Only [facility] [address] [place] [phone] Odilia Smiley LPN Social History Tobacco Use [...] Info) Description 08/12/2024 2:00 PM EDT Telemedicine [facility] [address] [place] [address] Sung Rand, PharmD [address] [place] [address] 08/22/2024 10:30 AM EDT Office Visit [facility] [address] [place] [address] Cristy Monet MD [address] [place] [address] documented as of this encounter Visit Diagnoses Not on filedocumented in this encounter Care Teams Septic Technician Relationship Specialty Start Date End Date Cristy Monet MD [address] [place] [address] PCP - General Family Medicine 12/12/19 Sung Rand, Bill [address] [place] [address] Pharmacist Internal Medicine 05/27/24 documented as of this encounter
--- OUTSIDE RECORDS SUMMARY | 2024-07-01 08:45 | XMS_ITS | Encounter Summary ---
Author Organization [employer] Address [address] [facility] [address] 7t [place] [address] Care Team Providers Care Regulatory Technician Name Role Phone Cristy Monet MD Primary Care Provider + Sung Rand PharmD Unavailable [phone] Reason for Visit * Reason Comments Med Refill Encounter Details Date Type Department Care Team ([facility] Contact Info) Description 02/03/2024 Refill [facility] 230 [place], [place] [phone] Niru Oakes MD [address] [place] [address] Resistant hypertension Social History Tobacco Use Types [...] EDT Telemedicine [facility] [address] [place] [address] Sung Rand PharmD [address] [place] [address] 08/22/2024 10:30 AM EDT Office Visit [facility] [address] [place] [address] Cristy Monet MD [address] [place] [address] documented as of this encounter Visit Diagnoses Diagnosis Resistant hypertension documented in this encounter Care Teams Regulatory Technician Relationship Specialty Start Date End Date Cristy Monet MD [address] [place] [address] PCP - General Family Medicine 12/12/19 Sung Rand, DaeD [address] [place] [address] [phone] Pharmacist Internal Medicine 05/27/24 documented as of this encounter
--- OUTSIDE RECORDS SUMMARY | 2024-07-01 08:45 | XMS_ITS | Encounter Summary ---
Author Organization [employer] Address [address] [facility] [address] [place] [address] Care Team Providers Care Gauge And Instrument Inspector Name Role Phone Cristy Monet MD Primary Care Provider + Sung Rand PharmD Unavailable [phone] Encounter Details Date Type Department Care Team (Late st Contact Info) Description 06/30/2024 7:00 PM EDT Office Visit [facility] [address] [place] [address] Social History Tobacco Use Types Packs/Day Years [...] AM EDT documented as of this encounter Last Filed Vital Signs Vital Sign Reading Time Taken Comments Blood Pressure 181/104 06/30/2024 7:13 PM EDT Pulse 65 06/30/2024 7:13 PM EDT Temperature 35 ??C (95 ??F) 06/30/2024 7:13 PM EDT Respiratory Rate 16 06/30/2024 7:13 PM EDT Oxygen Saturation - - Inhaled Oxygen Concentration - - Weight 54.2 kg (119 lb 6.4 oz) 06/30/2024 7:13 P M EDT Height - - Body Mass Index 21.15 01/14/2024 1:13 PM EST documented in this encounter Plan of Treatment Upcoming Encounters Date Type Department Care Team (Late st Contact Info) Description 08/12/2024 2:00 PM EDT Telemedicine [facility] [address] [place] [phone] Sung Rand, PharmD [address] [place] [address] 08/22/2024 10:30 AM EDT Office Visit [facility] [address] [place] [address] Cristy Monet MD [address] [place] [address] documented as of this encounter Visit Diagnoses Not on filedocumented in this encounter Care Teams Gauge And Instrument Inspector Relationship Specialty Start Date End Date Cristy Monet MD [address] [place] [address] PCP - General Family Medicine 12/12/19 Sung Rand, PharmD [address] [place] [address] Pharmacist Internal Medicine 05/27/24 documented as of this encounter
--- OUTSIDE RECORDS SUMMARY | 2024-07-01 08:45 | XMS_ITS | Encounter Summary ---
Author Organization [employer] Address [address] [place] [address] Care Team Providers Care Family Law Attorney Name Role Phone Cristy Monet MD Primary Care Provider + Sung Rand PharmD Unavailable [phone] Encounter Details Date Type Department Care Team (Late st Contact Info) Description 06/09/2024 Orders Only [facility] [address] [place], [place] [phone] ProviderIda MD Social History Tobacco Use Types [...] Description 08/12/2024 2:00 PM EDT Telemedicine [facility] [address] [place] [phone] Sung Rand, PharmD [address] [place] [phone] 08/22/2024 10:30 AM EDT Office Visit [facility] [address] [place] [phone] Cristy Monet MD [address] [place] [phone] documented as of this encounter Procedures Procedure Name Priority Date/Time Associated Diagnosis Comments BIOPSY CERVIX Routine 05/02/2024 11:47 AM EST documented in this encounter Results * Biopsy cervix (05/02/2024 11:47 AM EST) Historical Provider IN CLINIC/BEDSIDE ORDERAB LES Final Result documented in this encounter Visit Diagnoses Not on filedocumented in this encounter Care Teams Family Law Attorney Relationship Specialty Start Date End Date Cristy Monet MD [address] [place] [address] [phone] PCP - General Family Medicine 12/12/19 Sung Rand, PharmD [address] [place] [address] [phone] Pharmacist Internal Medicine 05/27/24 documented as of this encounter
[2024-07-01] MEDS: Losartan Potassium 50 MG TABLET 100 MG PO (09:03)
[2024-07-01] MEDS: Metoprolol Tartrate 25 MG TABLET PO (09:03)
--- NOTE | 2024-07-01 09:04 | PC.NURSE ---
Patient seen in ED c/o high blood pressure. Patient uzbek speaking but can speak some lebanese. Patient states yesterday her SBP was in the low 200. Patient also c/o frontal headache which started yesterday rated 7/10, no vision changes noted, no n/v. Lights dimmed for comfort, head lowered for comfort. Patient has cardiac PMH and states she has been compliant with meds. Patient denies SOB, currently on RA 97%. Current BP 178/94, home medications given. Effectiveness pending.
[2024-07-01 09:19] LABS: MANUAL DIFF FLAG NO
[2024-07-01 09:22] LABS: Basophils Percent Auto 0.6 % (0-2); Eosinophils Percent Auto 0.6 % (0-4); Hematocrit 41.2 % (37.0-47.0); Hemoglobin 14.3 g/dl (12.0-16.0); Imm Gran Abs Auto 0.02 X10*3/uL (0.00-0.03); Imm Gran Pct Auto 0.3 % (0.0-0.4); Lymphocytes Absolute Auto 1.4 X10*3/uL (1.2-4.9); Lymphocytes Percent Auto 22.2 % (20-40); Mean Corpuscular HGB Conc 34.7 g/dl (31.0-35.0); Mean Corpuscular Hemoglobin 31.6 pg (27.0-33.0); Mean Corpuscular Volume 91.2 fL (80.0-98.0); Mean Platelet Volume 8.6 fL (9.4-12.3); Monocytes Absolute Auto 0.6 X10*3/uL (0.1-1.2); Monocytes Percent Auto 8.9 % (2-11); Neutrophils Absolute Auto 4.2 x10*3/uL (2.0-8.3); Neutrophils Percent Auto 67.4 % (45-73); Platelet Count 292 X10*3/uL (160-400); Red Blood Count 4.52 X10*6/uL (4.20-5.50); Red Cell Distribution Width 11.8 % (11.0-16.0); White Blood Count 6.3 X10*3/uL (4.8-10.8)
[2024-07-01 09:36] LABS: Alanine Aminotransferase 20 U/L (0-31); Albumin Level 4.5 g/dL (3.5-5.0); Alkaline Phosphatase 118 U/L (39-117); Anion Gap 16 (12-20); Aspartate Amino Transferase 42 U/L (5-31); Bilirubin Total 0.8 mg/dL (0.0-1.0); Blood Urea Nitrogen 15 mg/dL (9-16); Calcium 9.7 mg/dL (8.4-10.2); Carbon Dioxide 25 mmol/L (22-29); Chloride 97 mmol/L (96-108); Creatinine Clr Calc Pharmacy 56.4; Estimated Glomerular Filt Rate > 60; Glucose Random 100 mg/dL (60-115); Sodium 133 mmol/L (135-145); Total Protein 7.7 g/dL (6.5-8.0)
[2024-07-01 09:45] LABS: Troponin-I High Sensitivity < 2.7 ng/L (<3.5-17.0)
[2024-07-01] MEDS: hydroCHLOROthiazide 25 MG TABLET PO (11:33)
[2024-07-01] MEDS: cloNIDine HCL 0.1 MG TABLET PO (11:35)
--- NOTE | 2024-07-01 11:50 | PC.NURSE ---
Patient remains hypertensive despite receiving medication administration, otherwise VSS and up to date. Patient re medicated per provider, effectiveness pending.
== END 2024-07-01 15:16 | disposition home or self-care (01) ==
PROVIDERS: Emergency Provider Emergency Medicine; PCP Internal Medicine
DX: I10 Essential (primary) hypertension (principal); R07.9 Chest pain, unspecified; Z79.899 Other long term (current) drug therapy
CPT/HCPCS: 36415; 70450; 80053; 84484; 85025; 93005; 99284; 99285

== ENCOUNTER → 2024-07-01 08:45 | Outpatient (BNV) | payer OTHER, SELFPAY | PROVIDERS: Emergency Provider Emergency Medicine; PCP Internal Medicine; Visit Provider Internal Medicine Cardiovascular Disease | DX: R00.1 Bradycardia, unspecified (principal) | CPT/HCPCS: 93010 ==

== ENCOUNTER → 2024-07-01 08:49 | Outpatient (BNV) | payer OTHER, SELFPAY | PROVIDERS: Emergency Provider Emergency Medicine; PCP Internal Medicine; Visit Provider Radiology Diagnostic Radiology | DX: I10 Essential (primary) hypertension (principal) | CPT/HCPCS: 70450 ==

== ENCOUNTER 2024-07-09 11:50 | Emergency (ER) | payer OTHER, SELFPAY ==
--- NOTE | 2024-07-09 12:24 | ED_ITS ---
HPI - General Adult General Chief complaint: General Medical Stated complaint: Blood Pressure Issues Time Seen by Provider: 07/09/24 13:53 Source: patient and adult education teacher Mode of arrival: ambulatory Limitations: no limitations History of Present Illness ED Provider: DR. Diaz HPI narrative: 68 yo female with PMHx of AZALIA II, arthritis, HTN, presenting to the ED c/o high blood pressure. She states she is on medications (clonidine 0.1 mg p.o. b.i.d., hydrochlorothiazide 25 mg tablet daily, losartan 100 mg tablet daily, metoprolol 25 mg tablet b.i.d.) but did not take them today due to not being able to take them with food as she woke up too early this morning. She went to the [facility] clinic who checked her BP, got an elevated reading, and sent her to the ED. She reports taking 4 baby Asprin before leaving the clinic. She denies chest pain, headaches, visual changes, nausea, vomiting, diarrhea, fever. Related Data Home Medications ?Medication ?Instructions ?Recorded ?Confirmed aripiprazole 5 mg tablet 5 mg PO DAILY 05/09/23 07/01/24 calcium 500 mg (as 1 tab PO BID 05/09/23 07/01/24 carbonate)-vitamin D3 5 mcg (200 unit) tablet (Oyster Shell Calcium-Vitamin D3) hydrochlorothiazide 25 mg tablet 25 mg PO DAILY 05/09/23 07/01/24 losartan 100 mg tablet 100 mg PO DAILY 05/09/23 07/01/24 metoprolol tartrate 25 mg tablet 25 mg PO BID 05/09/23 07/01/24 pravastatin 40 mg tablet 40 mg PO DAILY 05/09/23 07/01/24 zolpidem 5 mg tablet 5 mg PO BEDTIME PRN Insomnia 05/09/23 07/01/24 citalopram 20 mg tablet 20 mg PO DAILY 06/13/23 07/01/24 ipratropium 20 mcg-albuterol 100 inhalation 06/13/23 06/19/24 mcg/actuation mist for inhalation (Combivent Respimat) clonidine HCl 0.1 mg tablet 0.1 mg PO BID 07/01/24 07/01/24 clonidine HCl 0.1 mg tablet 0.1 mg PO BID 07/01/24 07/01/24 Previous Rx's ?Medication ?Instructions ?Recorded isoniazid 300 mg tablet 300 mg PO DAILY 30 days #30 tabs 12/31/23 pyridoxine (vitamin B6) 50 mg 50 mg PO DAILY 30 days #30 tabs 12/31/23 tablet hydroxychloroquine 200 mg tablet 200 mg PO .COMPLEX 90 days #180 06/19/24 (Plaquenil) tabs Allergies Allergy/AdvReac Type Severity Reaction Status Date / Time No Known Allergies Allergy Mild Verified 07/09/24 12:37 Review of Systems 2 Review of Systems: All other systems are reviewed and are negative Constitutional: Reports as per HPI and Reports no additional constitutional complaints Eyes: Reports as per HPI and Reports no additional eye complaints Reports system reviewed and no additional complaints, except as documented Cardiovascular: Reports as per HPI and Reports no additional cardiovascular complaints Respiratory: Reports as per HPI and Reports no additional respiratory complaints Gastrointestinal: Reports as per HPI and Reports no additional gastrointestinal complaints Genitourinary: Reports no additional female genitourinary complaints Musculoskeletal: Reports no additional musculoskeletal complaints Skin/Breast: Reports system reviewed and no additional complaints, except as docu Psychiatric: Reports no additional psychiatric complaints Endocrine: Reports no additional endocrine complaints Hematologic/Lymphatic: Reports no additional hematologic/lymphatic complaints Allergic/Immunologic: Reports no additional allergic/immunologic complaints Reports system reviewed and no additional complaints, except as documented and Reports Abnormal speech present [facility] Past Medical History Medical History Long-term use of Plaquenil Seronegative rheumatoid arthritis Positive TB test Encounter before starting medication Smoker unmotivated to quit Inflammatory arthritis Bilateral hand swelling Joint pain in both hands High blood cholesterol HTN (hypertension) Surgical History Hx of esophagogastroduodenoscopy Hx of colonoscopy Social History Social History Household Members Other:: lives alone Are you a primary rn care manager to a significant other at home: No Do you presently have visiting nurse or other home services: No Alcohol intake: current Alcohol intake frequency: a few times a week Alcohol type: beer Patient Tobacco Use Status: Current everyday Tobacco user Tobacco use type: Cigarette Cigarette Packs Per Day: 1 Cigarettes Per Day: 6 Second Hand Smoke Exposure: No Substance Use Type: Marijuana Advance Directives: No Advance Directives Information Provided: Yes Do you have a plan to hurt others: No Plan Physical Exam ED Vital Signs: Vital Signs - 24 hr 07/09/24 12:31 07/09/24 14:04 07/09/24 14:28 Temperature 97.5 F 98.5 F Pulse Rate 60 62 57 Respiratory Rate 16 13 Blood Pressure 192/91 H 175/108 H 170/101 H Pulse Oximetry 98 100 Oxygen Delivery Method Room Air Room Air 07/09/24 14:51 07/09/24 14:52 Temperature 97.9 F Pulse Rate 59 Respiratory Rate 20 Blood Pressure 159/86 H 159/86 H Pulse Oximetry 97 Oxygen Delivery Method Room Air BMI result Body Mass Index 20.4 Vital signs have been reviewed and appear to be correct. Blood pressure elevated. Heart rate normal. Respiratory rate normal. Temperature normal. Oxygen saturation normal. Appearance: Alert. Oriented X3. No acute distress. Head: Normal external exam. Normocephalic. Atraumatic. No Walter signs noted. No raccoon eyes noted Eyes: PERRLA. EOMI. Conjunctiva and sclera normal. Eyelids normal. ENT: TM's Normal. Pharynx normal. Uvula midline. Moist mucous membranes. No trismus noted. No drooling noted. No muffled voice noted. Neck: Normal inspection. Neck supple. FROM. No adenopathy. Thyroid Normal. No meningeal signs. No neck mass noted. CVS: Normal heart rate and rhythm. Heart sound normal. No murmurs noted. Pulses normal throughout. Respiratory: No respiratory distress. Painless inspiration. Breath sounds normal. No wheezes/rales/rhonchi noted. Chest nontender. No accessory muscle usage noted or decreased air movement noted. Abdomen: Soft and nontender. Bowel sounds normal in all 4 quadrants. No distention noted. No organomegaly noted. No visible injury noted. Back: No CVA tenderness. Full range of motion noted. Skin: Skin warm and dry. Normal skin color. Normal skin turgor. No rashes/lesions/lacerations noted. Extremities: No lower extremity edema. Extremities exhibit normal range of motion. Extremities nontender. Neuro: Oriented X 3. Cranial nerve exam: II-XII are grossly intact No motor deficit. No sensory deficit. Reflexes normal. Course Course Course Narrative: This is a Rapid Medical Exam performed in triage by Donna Lal PA-C. Full HPI, ROS and PE to be performed by primary ED provider. For evaluation of high blood pressure. PE: No neurological deficits, ambulating with steady gait, talking in complete sentences. Plan: EKG, labs, order home BP meds Reevaluation(s) Reevaluation #1: Sent from walk-in clinic for evaluation of elevated blood pressure, patient was given her home medication in the emergency department, blood pressure is under better control, no headache, no neurological deficit. Time: 16:36 Medications Administered Discontinued Medications Generic Name Dose Route Start Last Admin Trade Name Robert PRN Reason Stop Dose Admin Clonidine HCl 0.1 mg 07/09/24 12:33 07/09/24 14:04 Clonidine Hcl 0.1 Mg Tablet PO 07/09/24 12:34 0.1 mg ONCE ONE Administration Protocol Hydrochlorothiazide 25 mg 07/09/24 12:33 07/09/24 14:04 Hydrochlorothiazide 25 Mg Tablet PO 07/09/24 12:34 25 mg ONCE ONE Administration Protocol Losartan Potassium 100 mg 07/09/24 12:33 07/09/24 14:51 Losartan Potassium 50 Mg Tablet PO 07/09/24 12:34 100 mg ONCE ONE Administration Protocol Metoprolol Tartrate 25 mg 07/09/24 12:33 07/09/24 14:04 Metoprolol Tartrate 25 Mg Tablet PO 07/09/24 12:34 25 mg ONCE ONE Administration Protocol Medical Decision Making Differential Diagnosis Differential Diagnoses: The differential diagnosis associated with the presentation includes ( hypertensive urgency, hypertensive emergency, ACS, intracranial ambulate, electrolyte derangement, severe anemia.) Admission/Observation Consideration of admission/observation: Escalation of care including admission/observation considered Lab Data MDM Lab Attestation statement: I reviewed the patient's lab results. 07/09/24 12:50 07/09/24 12:50 Labs: Lab Results 07/09/24 Range/Units 12:50 WBC 8.3 (4.8-10.8) X10*3/uL RBC 4.34 (4.20-5.50) X10*6/uL Hgb 13.8 (12.0-16.0) g/dl Hct 39.1 (37.0-47.0) % MCV 90.1 (80.0-98.0) fL MCH 31.8 (27.0-33.0) pg MCHC 35.3 H (31.0-35.0) g/dl RDW 11.7 (11.0-16.0) % Plt Count 300 (160-400) X10*3/uL MPV 8.8 L (9.4-12.3) fL Immature Gran % (Auto) 0.4 (0.0-0.4) % Neut % (Auto) 66.4 (45-73) % Lymph % (Auto) 24.2 (20-40) % [place] % (Auto) 7.9 (2-11) % Eos % (Auto) 0.4 (0-4) % Baso % (Auto) 0.7 (0-2) % Lymph # (Auto) 2.0 (1.2-4.9) X10*3/uL [place] # (Auto) 0.7 (0.1-1.2) X10*3/uL Eos # (Auto) 0.0 (0.0-0.4) X10*3/uL Baso # (Auto) 0.1 (0.0-0.2) X10*3/uL Abs Immat Gran (auto) 0.03 (0.00-0.03) X10*3/uL Absolute Neuts (auto) 5.5 (2.0-8.3) x10*3/uL Absolute Nucleated RBC 0.000 (0.0-0.012) X10*3/uL Nucleated RBC % (auto) 0.0 (0.0-0.2) /100WBC Sodium 136 (135-145) mmol/L Potassium 4.5 (3.3-5.1) mmol/L Chloride 98 (96-108) mmol/L Carbon Dioxide 25 (22-29) mmol/L Anion Gap 18 (12-20) BUN 20 H (9-16) mg/dL Creatinine 0.95 (0.5-1.4) mg/dL Estim Creat Clear Calc 48.0 Estimated GFR 59 Random Glucose 98 (60-115) mg/dL Calcium 9.8 (8.4-10.2) mg/dL Total Bilirubin 0.7 (0.0-1.0) mg/dL Direct Bilirubin 0.2 (0.0-0.5) mg/dL AST 36 H (5-31) U/L ALT 18 (0-31) U/L Alkaline Phosphatase 108 (39-117) U/L Troponin I High Sens 3.3 (<3.5-17.0) ng/L Total Protein 7.7 (6.5-8.0) g/dL Albumin 4.5 (3.5-5.0) g/dL Independent Interpretation I performed an independent interpretation of an: CT Scan ( Head: No acute intracranial process.) Radiology Impression Discussion of test interpretation with radiology: I have reviewed the radiologist's reading. Discharge Plan Discharge Clinical Impression: Essential hypertension Patient Disposition: Home, Self-Care Instructions: Hypertension (ED) Additional Instructions: take your medicine as prescribed by your PCP. Prescriptions: No Action clonidine HCl 0.1 mg tablet 0.1 mg PO BID clonidine HCl 0.1 mg tablet 0.1 mg PO BID citalopram 20 mg tablet 20 mg PO DAILY Combivent Respimat 20-100 mcg/actuation mist inhalation hydroxychloroquine [Plaquenil] 200 mg tablet 200 mg PO .COMPLEX 90 Days Qty: 180 1RF Rx Instructions: Take 1 tablets daily from Sunday to Sunday and 1 tablet twice a day Sunday and Sunday losartan 100 mg tablet 100 mg PO DAILY metoprolol tartrate 25 mg tablet 25 mg PO BID hydrochlorothiazide 25 mg tablet 25 mg PO DAILY calcium carbonate-vitamin D3 [Oyster Shell Calcium-Vit D3] 500 mg-5 mcg (200 unit) tablet 1 tab PO BID zolpidem 5 mg tablet 5 mg PO BEDTIME PRN (Reason: Insomnia) pravastatin 40 mg tablet 40 mg PO DAILY aripiprazole 5 mg tablet 5 mg PO DAILY isoniazid 300 mg tablet 300 mg PO DAILY 30 Days Qty: 30 5RF pyridoxine (vitamin B6) 50 mg tablet 50 mg PO DAILY 30 Days Qty: 30 5RF Referrals: Cristy Monet MD [Primary Care Provider] - Print Language: Citizen [place]
[2024-07-09 12:31] VITALS: BP 192/91; PULSE 60; RESP 16; TEMP 36.4; O2SAT 98; BMI 20.4
--- NOTE | 2024-07-09 12:33 | ECG_ITS ---
Test Reason : high bp/ chest pain Blood Pressure : */* mmHG Vent. Rate : 53 BPM Atrial Rate : 53 BPM P-R Int : 156 ms QRS Dur : 80 ms QT Int : 444 ms P-R-T Axes : 67 28 57 degrees QTcB Int : 416 ms Sinus bradycardia Otherwise normal ECG When compared with ECG of 01-Jul-2024 09:03, No significant change was found Referred By: Donna Lal Electronically Signed By: MIAN MARTINS
[2024-07-09 12:55] LABS: MANUAL DIFF FLAG NO
[2024-07-09 12:56] LABS: Basophils Absolute Auto 0.1 X10*3/uL (0.0-0.2); Basophils Percent Auto 0.7 % (0-2); Eosinophils Percent Auto 0.4 % (0-4); Hematocrit 39.1 % (37.0-47.0); Hemoglobin 13.8 g/dl (12.0-16.0); Imm Gran Abs Auto 0.03 X10*3/uL (0.00-0.03); Imm Gran Pct Auto 0.4 % (0.0-0.4); Lymphocytes Percent Auto 24.2 % (20-40); Mean Corpuscular HGB Conc 35.3 g/dl (31.0-35.0); Mean Corpuscular Hemoglobin 31.8 pg (27.0-33.0); Mean Corpuscular Volume 90.1 fL (80.0-98.0); Mean Platelet Volume 8.8 fL (9.4-12.3); Monocytes Absolute Auto 0.7 X10*3/uL (0.1-1.2); Monocytes Percent Auto 7.9 % (2-11); Neutrophils Absolute Auto 5.5 x10*3/uL (2.0-8.3); Neutrophils Percent Auto 66.4 % (45-73); Platelet Count 300 X10*3/uL (160-400); Red Blood Count 4.34 X10*6/uL (4.20-5.50); Red Cell Distribution Width 11.7 % (11.0-16.0); White Blood Count 8.3 X10*3/uL (4.8-10.8)
[2024-07-09 13:15] LABS: Alanine Aminotransferase 18 U/L (0-31); Albumin Level 4.5 g/dL (3.5-5.0); Alkaline Phosphatase 108 U/L (39-117); Anion Gap 18 (12-20); Aspartate Amino Transferase 36 U/L (5-31); Bilirubin Direct 0.2 mg/dL (0.0-0.5); Bilirubin Total 0.7 mg/dL (0.0-1.0); Blood Urea Nitrogen 20 mg/dL (9-16); Calcium 9.8 mg/dL (8.4-10.2); Carbon Dioxide 25 mmol/L (22-29); Chloride 98 mmol/L (96-108); Estimated Glomerular Filt Rate 59; Glucose Random 98 mg/dL (60-115); Potassium 4.5 mmol/L (3.3-5.1); Sodium 136 mmol/L (135-145); Total Protein 7.7 g/dL (6.5-8.0)
[2024-07-09 13:21] LABS: Troponin-I High Sensitivity 3.3 ng/L (<3.5-17.0)
[2024-07-09 14:04] VITALS: BP 175/108; PULSE 62
[2024-07-09] MEDS: cloNIDine HCL 0.1 MG TABLET PO (14:04)
[2024-07-09] MEDS: hydroCHLOROthiazide 25 MG TABLET PO (14:04)
[2024-07-09] MEDS: Metoprolol Tartrate 25 MG TABLET PO (14:04)
[2024-07-09 14:28] VITALS: BP 170/101; PULSE 57; RESP 13; TEMP 36.9; O2SAT 100
--- OUTSIDE RECORDS SUMMARY | 2024-07-09 14:48 | XMS_ITS | Encounter Summary ---
Author Organization [employer] Address [address] [place] [address] Care Team Providers Care Well Digger Name Role Phone Cristy Monet MD Primary Care Provider + Sung Rand PharmD Unavailable [phone] Reason for Visit * Reason Comments Hypertension Encounter Details Date Type Department Care Team ([facility] st Contact Info) Description 07/09/2024 10:00 AM EDT Office Visit [facility] [address] [place] [address] Garrison Cannon MD [address] [place] [address] Epigastric pain (Primary Dx); Burning chest pain; HTN (hypertension), benign; Impacted cerumen of left ear Social History Tobacco Use Types Packs/Day Years [...] Sign Reading Time Taken Comments Blood Pressure 169/93 07/09/2024 9:21 AM EDT Pulse 56 07/09/2024 9:21 AM EDT Temperature 36 ??C (96.8 ??F) 07/09/2024 9:21 AM EDT Respiratory Rate 16 07/09/2024 9:21 AM EDT Oxygen Saturation 99% 07/09/2024 9:21 AM EDT room air Inhaled Oxygen Concentration - - Weight - - Height - - Body Mass Index - - documented in this encounter Progress Notes * Audrey Bowers RN - 07/09/2024 10:00 AM EDT Patient presetns to front end alignment specialist states she has chest pain was brought back to be triaged. Pt reportssince last Sunday she has had this pain and she describes it as burning pointing from her below her sternum to an upward motion. She denies any SOB, headache, arm pain does report some intermittent dizziness. Due to elevated BP and indigestion symptoms EKG obtained pt states she has not taken her medication this morning she will be evaluated by a provider * Garrison Cannon MD - 07/09/2024 10:00 AM EDTAssociated Order(s): ECG 12 lead Pre-Procedure Diagnose(s): Burning chest pain Post-Procedure Diagnose(s): Burning chest pain Subjective Patient ID: Delilah Sevilla is a 68 y.o. female. It Manager: Josiah ENRIQUEZ Delilah has had 1 week history of burning sensation in the epigastrium that radiates up her retrosternal area with associated sweating, comes and goes, nothing makes it better or worse, not related to exertion meals etc. She has mild discomfort at this time. No fever, n/v/d, SOB. ReACT risk factors include history of NSTEMI, hypertension, hyperlipidemia, tobacco dependence. Delilah was seen in [facility] ED 07/01 for high blood pressure. Clinical impression: Hypertension Advised to take her blood pressure medication which she had not taken prior to the ED visit. Lives alone not employed. Smokes 3 cigarettes/day. Drank 5-6 beers every 3-4 days, states no alcohol in the past 3 weeks. Patient Active Problem List Diagnosis Fibroadenoma of breast Depressive disorder Chronic obstructive lung disease (CMS/HCC) Blurring of visual image Backache Allergic rhinitis Acute headache Acute diarrhea Peripheral arterial occlusive disease (CMS/HCC) Osteopenia Inflammatory arthritis Microscopic hematuria Hyperlipidemia HTN (hypertension), benign History of non-ST elevation myocardial infarction (NSTEMI) Weight decreased Sinusitis Cigarette nicotine dependence without complication Seronegative rheumatoid arthritis (CMS/HCC) Encounter for cervical Pap smear with pelvic exam Bone disease ASCUS of cervix with negative high risk HPV Renal cyst Hepatic cyst Lower abdominal pain Enteritis Impacted cerumen of right ear Encounter for preventive health examination Hordeolum externum of left upper eyelid Vaginal discharge SVT (supraventricular tachycardia) (CMS/HCC) Substance abuse (CMS/HCC) Smoker unmotivated to quit Positive TB test Migraine Joint pain in both hands Bilateral hand swelling Acute hyperkalemia Resistant hypertension Protein-calorie malnutrition, unspecified severity (CMS/HCC) The following portions of the chart were reviewed this encounter and updated as appropriate: Review of Systems Constitutional: Positive for diaphoresis. Negative for fever. Respiratory: Negative for shortness of breath. Cardiovascular: Positive for chest pain. Gastrointestinal: Positive for abdominal pain. Skin: Negative for rash. Neurological: Negative for headaches. Objective Physical Exam Constitutional: Appearance: Normal appearance. HENT: Right Ear: Tympanic membrane, ear canal and external ear normal. Left Ear: External ear normal. There is impacted cerumen. Nose: Nose normal. Mouth/Throat: Mouth: Mucous membranes are moist. Pharynx: Oropharynx is clear. Eyes: Pupils: Pupils are equal, round, and reactive to light. Comments: Bilateral pterygium Cardiovascular: Rate and Rhythm: Normal rate and regular rhythm. Heart sounds: No murmur heard. Pulmonary: Effort: Pulmonary effort is normal. Breath sounds: Normal breath sounds. Abdominal: General: Abdomen is flat. Palpations: Abdomen is soft. Tenderness: There is abdominal tenderness (mild epigastric). Musculoskeletal: General: Normal range of motion. Cervical back: No tenderness. Skin: Findings: No rash. Neurological: Mental Status: She is alert. Gait: Gait is intact. Psychiatric: Mood and Affect: Mood normal. Behavior: Behavior normal. ECG 12 lead Date/Time: 07/09/2024 11:25 AM Performed by: Garrison Cannon MD Authorized by: Garrison Cannon MD Previous ECG: Previous ECG: Unavailable Interpretation: Interpretation: abnormal Details: Sinus bradycardia, JOVON Rate: ECG rate: 49 ECG rate assessment: bradycardic Rhythm: Rhythm: sinus rhythm Ectopy: Ectopy: none QRS: QRS axis: Normal QRS intervals: Normal QRS conduction: normal ST segments: ST segments: Normal T waves: T waves: normal Q waves: Abnormal Q-waves: not present Other findings: Other findings: LAE Assessment/Plan Diagnoses and all orders for this visit: Epigastric pain EKG: Normal except for sinus bradycardia and left atrial abnormality. Likely GI origin, but with the patient's multiple cardiac risk factors, she is being referred to the ED now for further evaluation. Advised to stop omeprazole in order to give H. pylori stool antigen specimen at [facility] lab in 2 weeks. Will call patient with results. I prescribed Carafate to use for now. Was given aspirin 324 mg p.o. in walk-in clinic. - Helicobacter pylori Antigen, EIA, Stool; Future Burning chest pain As above HTN (hypertension), benign Has home BP monitor. States BP readings are often slightly elevated. Reviewed BP parameters, given written BP log that includes BP parameters, to keep daily. RN BP visit scheduled. Patient will bring BP log to visit. Impacted cerumen of left ear Avoid Q-tips. Prescribed Debrox eardrops. RN visit scheduled for Other orders - sucralfate (Carafate) 1 GM/10ML suspension; Take 10 mL (1 g) by mouth 4 times daily. documented in this encounter Plan of Treatment Upcoming Encounters Date Type Department Care Team (Late st Contact Info) Description 07/14/2024 1:30 PM EDT Clinical Support [address] [address] 07/21/2024 11:00 AM EDT Clinical Support [address] [address] 08/12/2024 2:00 PM EDT Telemedicine [address] [address] Sung Rand, DaeD [address] [place] [phone] 08/22/2024 10:30 AM EDT Office Visit [address] [address] Cristy Monet MD [address] [place] [phone] Pending Results Name Type Priority Associated Diagnoses Date /Time ECG 12 lead ECG Routine Burning chest pain 07/09/2024 1:48 PM EDT Scheduled Orders Name Type Priority Associated Diagnoses Orde r Schedule Helicobacter pylori??Antigen, EIA, Stool Lab Routine Epigastric pain Expected: 07/09/2024 (Approximate), Expires: 07/09/2025 documented as of this encounter Procedures Procedure Name Priority Date/Time Associated Diagnosis Comments ECG 12-LEAD Routine 07/09/2024 1:48 PM EDT Burning chest pain documented in this encounter Visit Diagnoses Diagnosis Epigastric pain- Primary Abdominal pain, epigastric Burning chest pain Other chest pain HTN (hypertension), benign Essential hypertension, benign Impacted cerumen of left ear Impacted cerumen documented in this encounter Administered Medications Inactive Administered Medications - up to 3 most recent administrations Medication Order MAR Action Action Date Dose Rate Site aspirin chewable tablet 324 mg 324 mg, Oral, Once, On Sun07/09/24 at 1130, For 1 doseIndications:Burning chest pain Given 07/09/2024 11:30 AM EDT 324 mg documented in this encounter Care Teams Well Digger Relationship Specialty Start Date End Date Cristy Monet MD [address] [place] [address] PCP - General Family Medicine 12/12/19 Sung Rand PharmD [address] [place] [address] Pharmacist Internal Medicine 05/27/24 documented as of this encounter
--- OUTSIDE RECORDS SUMMARY | 2024-07-09 14:48 | XMS_ITS | Encounter Summary ---
Author Organization [employer] Address [address] [facility] 7t [place] [address] Care Team Providers Care Repairer Handtools Name Role Phone Cristy Monet MD Primary Care Provider + Sung Rand PharmD Unavailable [phone] Reason for Visit * Reason Onset Date Comments Nurse Triage 07/08/2024 Encounter Details Date Type Department Care Team ([facility] st Contact Info) Description 07/08/[address] [facility] [address] [place], [place] [phone] Cristy Monet MD [address] [place], [place] [phone] Nurse Triage Social History Tobacco Use Types Packs/Day Years [...] encounter Miscellaneous Notes * Telephone Encounter - Amy Ayala RN - 07/08/2024 10:39 AM EDT Date: 07/01/24 Hospital: [facility] ED Seen for: High B/P Symptomatic Yes Called pt. Via [employer] animal control licensing worker [phone] Niru. No answer. Phone just kept ringing and no voicemail option. Auto Design Detailer called back. Pt. Answered but, Auto Design Detailer no longer business education teacher. Called back pt. Via [employer] animal control licensing worker [phone] Jonnathan. Pt. States that she went to [facility] ED on 07/01/24 for Hypertension and chest discomfort. BP this am was 140/118. Pt. Is feeling a heat sensation in her chest on and off and abdominal pain which is NOT present right now. Pt denies any SOB, chest pain, jaw pain, left shoulder, neck or arm pain. Hypertension medications were not changed at ED visit. Pt. Had an EKG and a Head CTscan which both came back negative. Pt. States that CT scan was done due to headache. Pt. Is not having Chest pain at present and the feeling is a warm sensation on and off. Advised pt. To drink plenty of water and an Uber ride was created for pt. To come to [facility] walk in at 1pm. Advised pt. If she gets any chest pain, SOB, jaw pain, left arm/shoulder neck pain to call 911 to bring her to ED. Pt states understanding. Protocol Used: Blood Pressure - High (Adult) Protocol-Based Disposition: See in Office or Video Visit Today Video visit not offered Positive Triage Questions: * Systolic BP >= 180 OR Diastolic >= 110 * Patient wants to be seen * All higher-acuity triage questions were negative * Telephone Encounter - Antoni [place] - 07/08/2024 10:32 AM EDT Patient calling to report ED visit on : Date: 07/01/24 Hospital: [facility] ED Seen for: High B/P Symptomatic Yes Pt reports a hot sensation in her chest . *if yes message should go to Triage documented in this encounter Plan of Treatment Upcoming Encounters Date Type Department Care Team (Late st Contact Info) Description 07/14/2024 1:30 PM EDT Clinical Support [address] [address] 07/21/2024 11:00 AM EDT Clinical Support [address] [address] 08/12/2024 2:00 PM EDT Telemedicine [address] [address] Sung Rand PharmD [address] [place] [address] 08/22/2024 10:30 AM EDT Office Visit [address] [address] Cristy Monet MD [address] [place] [phone] documented as of this encounter Visit Diagnoses Not on filedocumented in this encounter Care Teams Repairer Handtools Relationship Specialty Start Date End Date Cristy Monet MD [address] [place] [phone] PCP - General Family Medicine 12/12/19 Sung Rand, PharmD [address] [place] [phone] Pharmacist Internal Medicine 05/27/24 documented as of this encounter
--- OUTSIDE RECORDS SUMMARY | 2024-07-09 14:49 | XMS_ITS | Encounter Summary ---
Author Organization [employer] Address [address] [facility] 7t [place] [address] Care Team Providers Care Capacity Management Specialist Name Role Phone Cristy Monet MD Primary Care Provider + Sung Rand PharmD Unavailable [phone] Encounter Details Date Type Department Care Team (Late st Contact Info) Description 07/09/2024 Orders Only GENERIC EXTERNAL DATA DEPARTMENT Provider, [...] Description 07/14/2024 1:30 PM EDT Clinical Support [facility] MED[facility]INE [address] [place] [address] 07/21/2024 11:00 AM EDT Clinical Support [address] [address] 08/12/2024 2:00 PM EDT Telemedicine [address] [address] Sung Rand, PharmD [address] [place] [address] 08/22/2024 10:30 AM EDT Office Visit [address] [address] Cristy Monet MD [address] [place] [address] documented as of this encounter Procedures Procedure Name Priority Date/Time Associated Diagnosis Comments HIGH SENSITIVITY TROPONIN I Routine 07/09/2024 12:50 PM EDT CBC WITH AUTO DIFFERENTIAL Routine 07/09/2024 12:50 PM EDT HEPATIC FUNCTION PANEL Routine 07/09/2024 12:50 PM EDT BASIC METABOLIC PANEL Routine 07/09/2024 12:50 PM EDT documented in this encounter Results * High Sensitivity Troponin I (07/09/2024 12:50 PM EDT) Pathologist [facility] TROPONIN I HIGH SENSITIVITY 3.3 <3.5 - 17.0 ng/L [facility] Comment:The Cade high sens itivity Troponin-I results should beused in conjunction with other diagnostic information suchas ECG, clinical observations and information, and patientsymptoms to aid in the diagnosis of AK. 07/09/2024 12:5 0 PM EDT 07/09/2024 12:54 PM EDT us Generic External Data Provider LAB BLOOD ORDERAB LES Final Result [facility] [address] [place], [place] [phone] * (ABNORMAL) Basic Metabolic Panel (07/09/2024 12:50 PM EDT) [facility] Sodium 136 135 - 145 mmol/L [facility] Potassium 4.5 3.3 - 5.1 mmol/L [facility] Chloride 98 96 - 108 mmol/L [facility] Carbon Dioxide 25 22 - 29 mmol/L [facility] Anion Gap 18 12 - 20 [facility] Urea Nitrogen (BUN) 20(H) 9 - 16 mg/dL [facility] Creatinine, Serum 0.95 0.5 - 1.4 mg/dL [facility] Creatinine Clr Calc Pharmacy 48.0 [facility] Comment:Provided height and weight: 160.02 cm,52.3 kg.eGFR (calculated from the MDRD study equation) and eCrCl(calculated from the Cockcroft-Gault equation) are based ondifferent parameters and may not yield comparable results.If eCrCl result is absurd, please check patient'sheight/weight. Estimated Glomerular Filt Rate 59 [facility] Comment:Chronic Kidney Disea se: Estimated GFR < 60 mL/min/1.21u3Tbieaw Kidney Disease: Estimated GFR < 15 mL/min/1.73m2 Glucose 98 60 - 115 mg/dL [facility] Calcium 9.8 8.4 - 10.2 mg/dL [facility] 07/09/2024 12:5 0 PM EDT 07/09/2024 12:54 PM EDT Generic External Data Provider LAB BLOOD ORDERAB LES Final Result Performing Organization Address [facility] Co de Phone Number [facility] [address] [place] [phone] * (ABNORMAL) Hepatic Function Panel (07/09/2024 12:50 PM EDT) [facility] Bilirubin, Total 0.7 0.0 - 1.0 mg/dL [facility] Bilirubin, Direct 0.2 0.0 - 0.5 mg/dL [facility] Aspartate Amino Transferase 36(H) 5 - 31 U/L [facility] Alanine Aminotransferase 18 0 - 31 U/L [facility] Total Protein 7.7 6.5 - 8.0 g/dL [facility] Albumin Level 4.5 3.5 - 5.0 g/dL [facility] Alkaline Phosphatase 108 39 - 117 U/L [facility] 07/09/2024 12:5 0 PM EDT 07/09/2024 12:54 PM EDT Generic External Data Provider LAB BLOOD ORDERAB LES Final Result Performing Organization Address [facility] de Phone Number [facility] [address] [place] [phone] * (ABNORMAL) CBC auto differential (07/09/2024 12:50 PM EDT) [facility] Signature White Blood Count 8.3 4.8 - 10.8 X10*3/uL [facility] Red Blood Count 4.34 4.20 - 5.50 X10*6/uL [facility] Hemoglobin 13.8 12.0 - 16.0 g/dl [facility] Hematocrit 39.1 37.0 - 47.0 % [facility] Mean Corpuscular Volume 90.1 80.0 - 98.0 fL [facility] Mean Corpuscular Hemoglobin 31.8 27.0 - 33.0 pg [facility] Mean Corpuscular HGB Conc 35.3(H) 31.0 - 35.0 g/dl [facility] Red Cell Distribution Width 11.7 11.0 - 16.0 % [facility] Platelet Count 300 160 - 400 X10*3/uL [facility] Mean Platelet Volume 8.8(L) 9.4 - 12.3 fL [facility] Neutrophils Percent Auto 66.4 45 - 73 % [facility] Imm Gran Pct Auto 0.4 0.0 - 0.4 % [facility] Lymphocytes Percent Auto 24.2 20 - 40 % [facility] Monocytes Percent Auto 7.9 2 - 11 % [facility] Eosinophils Percent Auto 0.4 0 - 4 % [facility] Basophils Percent Auto 0.7 0 - 2 % [facility] NRBC Pct Auto 0.0 0.0 - 0.2 /100WBC [facility] Neutrophils Absolute Auto 5.5 2.0 - 8.3 x10*3/uL [facility] Imm Gran Abs Auto 0.03 0.00 - 0.03 X10*3/uL [facility] Lymphocytes Absolute Auto 2.0 1.2 - 4.9 X10*3/uL [facility] Monocytes Absolute Auto 0.7 0.1 - 1.2 X10*3/uL [facility] Eosinophils Absolute Auto 0.0 0.0 - 0.4 X10*3/uL [facility] Basophils Absolute Auto 0.1 0.0 - 0.2 X10*3/uL [facility] NRBC Abs Auto 0.000 0.0 - 0.012 X10*3/uL [facility] 07/09/2024 12:5 0 PM EDT 07/09/2024 12:54 PM EDT us Generic External Data Provider LAB BLOOD ORDERAB LES Final Result [facility] [address] [place] [phone] documented in this encounter Visit Diagnoses Not on filedocumented in this encounter Care Teams Capacity Management Specialist Relationship Specialty Start Date End Date Cristy Monet MD [address] [place] [phone] PCP - General Family Medicine 12/12/19 Sung Rand, Bill [address] [place] [phone] Pharmacist Internal Medicine 05/27/24 documented as of this encounter
--- OUTSIDE RECORDS SUMMARY | 2024-07-09 14:49 | XMS_ITS | Encounter Summary ---
Author Organization [employer] Address [address] [facility] [address] 7t [place] [address] Care Team Providers Care Sustainability Director Name Role Phone Cristy Monet MD Primary Care Provider + Sung Rand PharmD Unavailable [phone] Encounter Details Date Type Department Care Team (Late st Contact Info) Description 06/09/2024 Orders Only [facility]EDS [address] [place], [place] [phone] ProviderIda MD Social History Tobacco Use Types [...] Description 07/14/2024 1:30 PM EDT Clinical Support [address] [address] 07/21/2024 11:00 AM EDT Clinical Support [address] [address] 08/12/2024 2:00 PM EDT Telemedicine [address] [address] Sung Rand, PharmD [address] [place] [address] 08/22/2024 10:30 AM EDT Office Visit [address] [address] Cristy Monet MD [address] [place] [phone] documented as of this encounter Procedures Procedure Name Priority Date/Time Associated Diagnosis Comments BIOPSY CERVIX Routine 05/02/2024 11:47 AM EST documented in this encounter Results * Biopsy cervix (05/02/2024 11:47 AM EST) us Historical Provider IN CLINIC/BEDSIDE ORDERAB LES Final Result documented in this encounter Visit Diagnoses Not on filedocumented in this encounter Care Teams Sustainability Director Relationship Specialty Start Date End Date Cristy Monet MD [address] [place] [phone] PCP - General Family Medicine 12/12/19 Sung Rand, PharmD [address] [place] [phone] Pharmacist Internal Medicine 05/27/24 documented as of this encounter
--- OUTSIDE RECORDS SUMMARY | 2024-07-09 14:49 | XMS_ITS | Encounter Summary ---
Author Organization [employer] Address [address] [facility] 7t [place] [address] Care Team Providers Care Acupuncturist Name Role Phone Cristy Monet MD Primary Care Provider + Sung Rand PharmD Unavailable [phone] Encounter Details Date Type Department Care Team ([facility] Contact Info) Description 09/13/2022 Orders Only [facility] MEDICINE [address] [place] [phone] Cristy Monet MD [address] [place] [address] [phone] Hyperkalemia (Primary Dx); Hypercalcemia Social History Tobacco [...] Department Care Team (Late Contact Info) Description 07/14/2024 1:30 PM EDT Clinical Support [address] [phone] 07/21/2024 11:00 AM EDT Clinical Support [facility] MEDICINE [address] [place] [phone] 08/12/2024 2:00 PM EDT Telemedicine [facility] MEDICINE [address] [place] [address] Sung Rand PharmD [address] [place] [address] 08/22/2024 10:30 AM EDT Office Visit [facility]INE [address] [place], [place] [phone] Cristy Monet MD [address] [place], [place] [phone] documented as of this encounter Procedures Procedure Name Priority Date/Time Associated Diagnosis Comments BASIC METABOLIC PANEL Routine 09/25/2022 8:41 AM EDT Hyperkalemia Hypercalcemia documented in this encounter Results * (ABNORMAL) Basic Metabolic Panel (09/25/2022 8:41 AM EDT) Sodium 138 135 - 145 mmol/L [facility] Potassium 5.0 3.3 - 5.1 mmol/L [facility] Chloride 102 96 - 108 mmol/L [facility] Carbon Dioxide 30(H) 22 - 29 mmol/L [facility] Anion Gap 11(L) 12 - 20 [facility] Urea Nitrogen (BUN) 15 9 - 16 mg/dL [facility] Creatinine, Serum 0.78 0.5 - 1.4 mg/dL [facility] Estimated Glomerular Filt Rate >60 [facility] Comment:NOTE: For -Am erican individuals, multiply the result by 1.210.Chronic Kidney Disease: Estimated GFR < 60 mL/min/[id number] Kidney Disease: Estimated GFR < 15 mL/min/1.73m2 Glucose 96 60 - 115 mg/dL [facility] Calcium 9.6 8.4 - 10.2 mg/dL [facility] Blood Venous blood specimen / Unknown 09/25/2022 8:41 AM EDT 09/25/2022 11:03 AM EDT us Cristy Monet MD LAB BLOOD ORDERABLES Fin al Result [facility] [address] [place] [phone] documented in this encounter Visit Diagnoses Diagnosis Hyperkalemia- Primary Hyperpotassemia Hypercalcemia documented in this encounter Care Teams Acupuncturist Relationship Specialty Start Date End Date Cristy Monet MD [address] [place] [phone] PCP - General Family Medicine 12/12/19 Sung Rand, DaeD [address] [place] [phone] Pharmacist Internal Medicine 05/27/24 documented as of this encounter
--- OUTSIDE RECORDS SUMMARY | 2024-07-09 14:49 | XMS_ITS | Encounter Summary ---
Author Organization [employer] Address [address] [facility] 7t [place] [address] Care Team Providers Care Pain Management Nurse Name Role Phone rCisty Monet MD Primary Care Provider + Sung Rand PharmD Unavailable [phone] Encounter Details Date Type Department Care Team (Late st Contact Info) Description 07/07/2022 Orders Only [facility] MED[facility]INE [address] [place] [phone] Odilia Smiley LPN Social History Tobacco Use [...] Description 07/14/2024 1:30 PM EDT Clinical Support [facility] [address] [place] [phone] 07/21/2024 11:00 AM EDT Clinical Support [facility] [address] [place] [phone] 08/12/2024 2:00 PM EDT Telemedicine [address] [address] Sung Rand, PharmD [address] [place] [address] 08/22/2024 10:30 AM EDT Office Visit [address] [address] Cristy Monet MD 230 [facility] [place] [address] documented as of this encounter Procedures Procedure Name Priority Date/Time Associated Diagnosis Comments BI MAMMOGRAM SCREENING TOMOSYNTHESIS BILATERAL Routine 07/07/2022 1:05 PM EDT documented in this encounter Results * BI Mammogram Screening Tomosynthesis Bilateral (07/07/2022 1:05 PM EDT) Anatomical Region Laterality Modality Breast Bilateral Mammography 07/07/2022 1:05 PM EDT Narrative 07/10/2022 1:12 PM EDT ? [facility] [place] ? [address] ?[place] [address] ? Mammography Report ? Signed ? Patient: Roel,Delilah ?MR#: [id number] ?? 41 ? : 1955 ?Acct:[id number] ? Age/Sex: 66 / F ?ADM Date: 07/07/22 ? Loc: HO.MAMMO ? Attending Dr: Cristy Monet MD ? Ordering Physician: Cristy Monet MD ?Results: 2Be ?? nign Findings ? Date of Service: 07/07/22 ?Follow Up: 1 Year From Orig ?? inal Mammogram ? Procedure(s): MM tomosynthesis screening BI ?? Accession Number(s): [id number] ? cc: Cristy Monet MD ? EXAMINATION: [...] signed by Viktor L[place]ford MD in OV> ?05/08/ 1309 ? DD/DT: 05/05/ 1305 ? TD/TT: ? Rn International: [facility] ? Procedure Note Sita, Image - 08/31/2022 [facility] [address] [place], [place] [address] Mammography Report Signed Patient: Ai Sevilla#: [id number] 39 : 8Acct:[id number] Age/Sex: 66 / FADM Date: 07/07/22 Loc: HO.MAMMO Attending Dr: Cristy Monet MD Ordering Physician: Cristy Monet MDResults: 2Be nign Findings Date of Service: 07/07/22Follow Up: 1 Year From Orig inal Mammogram Procedure(s): MM tomosynthesis screening BI Accession Number(s): [id number] cc: Cristy Monet MD EXAMINATION: MM SCREENING [...] in OV> 07/10/22 1309 DD/ 1305 TD/TT: Rn International: DAVE [facility] External Provider IMG BI PROCEDURES Final Result documented in this encounter Visit Diagnoses Not on filedocumented in this encounter Care Teams Pain Management Nurse Relationship Specialty Start Date End Date Crsity Monet MD [address] [place] [address] PCP - General Family Medicine 12/12/19 Sung Rand, DaeD [address] [place] [address] Pharmacist Internal Medicine 05/27/24 documented as of this encounter
--- OUTSIDE RECORDS SUMMARY | 2024-07-09 14:49 | XMS_ITS | Clinical Summary ---
Author Organization [employer] Address [address] [place] [address] Care Team Providers Care Powerhouse Mechanic Apprentice Name Role Phone Patrick Monet MD Primary Care Provider + Sung Rand PharmD Unavailable [phone] Allergies Active Allergy Reactions Criticality Noted Date [...] 18 g 3 06/27/19 24 Active Umeclidinium Sodus (Incruse Ellipta) 62.5 MCG/ACT aerosol powder Inhale 1 Inhalation Once per day. 1 each 09/17/19 24 Active Blood Pressure Monitoring (Blood Pressure Cuff) misc Use daily as prescribed 1 each 10/18/19 24 Active Calcium Carb-Cholecalci ferol (Oyster Shell Calcium w/D) 500-5 MG-MCG tablet [...] mouth Once per day. 12/31/19 24 Active hydroCHLOROthia zide (HYDRODiuril) 25 MG tablet TAKE 1 TABLET BY MOUTH EVERY MORNING 90 tablet 1 03/03/20 24 Active losartan (Cozaar) 100 MG tablet TAKE 1 TABLET BY MOUTH EVERY MORNING 90 tablet 1 03/03/20 24 Active metoprolol tartrate (Lopressor) 25 MG tabletIndicatio ns:HTN (hypertension), benign TAKE 1 TABLET BY MOUTH TWICE DAILY IN THE MORNING AND IN THE EVENING 180 tablet 2 05/30/19 25 Active cloNIDine (Catapres) 0.1 MG tabletIndicatio ns:Resistant hypertension TAKE 1 TABLET BY MOUTH TWICE DAILY IN THE MORNING AND IN THE EVENING 60 tablet 06/11/19 25 Active omeprazole (PriLOSEC) [address] capsule TAKE 1 CAPSULE BY MOUTH TWICE DAILY IN THE MORNING AND IN THE EVENING BEFORE MEALS 60 capsule 06/11/19 25 Active sucralfate (Carafate) 1 GM/10ML suspension Take 10 mL (1 g) by mouth 4 times daily. 1200 mL 07/10/19 25 025 Active carbamide peroxide (Debrox) 6.5 % otic solution Administer 5 drops into the left ear 2 times daily for 4 days. 15 mL 07/10/19 25 025 Active cloNIDine (Catapres) 0.1 MG tabletIndicatio ns:Resistant hypertension TAKE 1 TABLET BY MOUTH TWICE DAILY IN THE MORNING AND IN THE EVENING 60 tablet 05/10/19 25 025 Discontinued omeprazole (PriLOSEC) [address] capsule TAKE 1 CAPSULE BY MOUTH TWICE DAILY IN THE MORNING AND IN THE EVENING BEFORE MEALS 60 capsule 05/10/19 25 025 Discontinued carbamide peroxide (Debrox) 6.5 % otic solution Administer 5 drops into the right ear 2 times daily for 4 days. 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 Assessment & Plan (06/27/2023 9:57 AM [...] asymptomatic I will refer to rheumatology in [facility] to improve compliance w/ appointment Assessment & [...] Encounters Date Type Department Care Team Description 07/09/2024 10:00 AM EDT [facility] [address] [address] Garrison Cannon MD Epigastric pain (Primary Dx); Burning chest pain; HTN (hypertension), benign; Impacted cerumen of left ear 07/09/2024 Orders Only GENERIC EXTERNAL DATA DEPARTMENT Provider, Generic External Data 07/08/2024 Telephone [facility] [address] [place] [phone] Patrick Monet MD Nurse Triage 07/01/2024 Orders Only [facility] External Provider, [facility] 06/30/2024 7:00 PM EDT [facility] [address] [address] Ravi Akbar MD HTN (hypertension), benign (Primary Dx); Alcohol use 06/30/2024 Travel 06/19/2024 Orders Only GENERIC EXTERNAL DATA DEPARTMENT Provider, Generic External Data 06/10/2024 Refill [facility] [address] [place] [phone] Patrick Monet MD Resistant hypertension 06/09/2024 Orders Only [facility] [address] [place] [address] Ida Augustin MD 05/29/2024 Refill [facility] [address] [place] [phone] Patrick Monet MD HTN (hypertension), benign 05/20/2024 Travel 05/09/2024 Refill [facility] [address] [place] [phone] Patrick Monet MD Resistant hypertension 05/02/2024 Orders Only GENERIC EXTERNAL DATA DEPARTMENT Provider, Generic External Data 04/17/2024 Orders Only [facility] [address] [place] [phone] Ida Augustin MD 04/17/2024 Telephone [facility] [address] [place] [address] Patrick Monet MD No Show 04/15/2024 Orders Only [facility] [address] [place] [address] Patrick Monet MD 04/11/2024 Orders Only GENERIC EXTERNAL DATA DEPARTMENT Provider, Generic External Data from Last 3 Months Immunizations Name Administration [...] air Inhaled Oxygen Concentration - - Weight 54.2 kg (119 lb 6.4 oz) 06/30/2024 7:13 P M EDT Height 160 cm (5' 3 ) 01/14/2024 1:13 PM EST Body Mass Index 21.15 01/14/2024 1:13 PM EST Plan of Treatment Upcoming Encounters Date Type Department Care Team (Late st Contact Info) Description 07/14/2024 1:30 PM EDT Clinical Support [facility] [address] [place] [phone] 07/21/2024 11:00 AM EDT Clinical Support [address] [address] 08/12/2024 2:00 PM EDT Telemedicine [facility] [address] [place] [address] Sung Rand, PharmD [address] [place], [place] [phone] 08/22/2024 10:30 AM EDT Office Visit [facility] [address] [place], [place] [phone] Patrick Monet MD [address], [place] [phone] Health Maintenance Due Date Last Done Comments [...] 07/2022, 08/07/2022, Additional history exists Tobacco Screening 07/09/2025 07/09/2024 Lipid Panel 12/18/2028 12/19/2023, 0704/2022, 05/04/2021 Colonoscopy [...] 07/09/2024 1:48 PM EDT Burning chest pain HIGH SENSITIVITY TROPONIN I Routine 07/09/2024 12:50 PM EDT BASIC METABOLIC PANEL Routine 07/09/2024 12:50 PM EDT HEPATIC FUNCTION PANEL Routine 12:50 PM EDT CBC WITH AUTO DIFFERENTIAL Routine 07/09/2024 12:50 PM EDT HIGH SENSITIVITY TROPONIN I Routine 07/01/2024 9:16 AM EDT COMPREHENSIVE METABOLIC PANEL Routine 07/01/2024 9:16 AM EDT CBC WITH AUTO DIFFERENTIAL Routine 07/01/2024 9:[address] HEAD WO CONTRAST Routine 07/01/2024 8 :55 AM EDT LUPUS ANTICOAGULANT EVALUATION WITH REFLEX Routine 06/19/2024 12:02 PM EDT DNA (DS) ANTIBODY Routine 06/19/2024 12: 02 PM EDT SCL-70 ANTIBODY Routine 06/19/2024 12:02 PM EDT SM AND SM/BAG MACHINE HELPER ANTIBODIES Routine 06/19/2024 12:02 PM EDT SJOGREN'S ANTIBODIES (SS-A,SS-B) Routine 06/19/2024 12:02 PM EDT PATRICK SCREEN, IFA, W/REFL TITER AND PATTERN Routine 06/19/2024 12:02 PM EDT [id number] I ANTIBODIES (IGG, IGA, IGM) Routine 06/19/2024 [...] Recently Relevant to Health Maintenance Results * High Sensitivity Troponin I (07/09/2024 12:50 PM EDT) Only the most recent of2 resultswithin the time period is included. TROPONIN I HIGH SENSITIVITY 3.3 <3.5 - 17.0 ng/L [facility] Comment:The Cade high sens itivity Troponin-I results should beused in conjunction with other diagnostic information suchas ECG, clinical observations and information, and patientsymptoms to aid in the diagnosis of MO. 07/09/2024 12:5 0 PM EDT 07/09/2024 12:54 PM EDT us Generic External Data Provider LAB BLOOD ORDERAB LES Final Result [facility] [address] [place] [phone] * (ABNORMAL) CBC auto differential (07/09/2024 12:50 PM EDT) Only the most recent of3 resultswithin the time period is included. White Blood Count 8.3 4.8 - 10.8 X10*3/uL [facility] Red Blood Count 4.34 4.20 - 5.50 X10*6/uL [facility] Hemoglobin 13.8 12.0 - 16.0 g/dl [facility] Hematocrit 39.1 37.0 - 47.0 % [facility] Mean Corpuscular Volume 90.1 80.0 - 98.0 fL [facility] Mean Corpuscular Hemoglobin 31.8 27.0 - 33.0 pg [facility] Mean Corpuscular HGB Conc 35.3(H) 31.0 - 35.0 g/dl [facility] Red Cell Distribution Width 11.7 11.0 - 16.0 % [facility] Platelet Count 300 160 - 400 X10*3/uL [facility] Mean Platelet Volume 8.8(L) 9.4 - 12.3 fL [facility] Neutrophils Percent Auto 66.4 45 - 73 % [facility] Imm Gran Pct Auto 0.4 0.0 - 0.4 % [facility] Lymphocytes Percent Auto 24.2 20 - 40 % [facility] Monocytes Percent Auto 7.9 2 - 11 % [facility] Eosinophils Percent Auto 0.4 0 - 4 % [facility] Basophils Percent Auto 0.7 0 - 2 % [facility] NRBC Pct Auto 0.0 0.0 - 0.2 /100WBC [facility] Neutrophils Absolute Auto 5.5 2.0 - 8.3 x10*3/uL [facility] Imm Gran Abs Auto 0.03 0.00 - 0.03 X10*3/uL [facility] Lymphocytes Absolute Auto 2.0 1.2 - 4.9 X10*3/uL [facility] Monocytes Absolute Auto 0.7 0.1 - 1.2 X10*3/uL [facility] Eosinophils Absolute Auto 0.0 0.0 - 0.4 X10*3/uL [facility] Basophils Absolute Auto 0.1 0.0 - 0.2 X10*3/uL [facility] NRBC Abs Auto 0.000 0.0 - 0.012 X10*3/uL [facility] 07/09/2024 12:5 0 PM EDT 07/09/2024 12:54 PM EDT Generic External Data Provider LAB BLOOD ORDERAB LES Final Result Performing Organization Address [facility] Co de Phone Number [facility] [address] [place] [address] [phone] * (ABNORMAL) Hepatic Function Panel (07/09/2024 12:50 PM EDT) Bilirubin, Total 0.7 0.0 - 1.0 mg/dL [facility] Bilirubin, Direct 0.2 0.0 - 0.5 mg/dL [facility] Aspartate Amino Transferase 36(H) 5 - 31 U/L [facility] Alanine Aminotransferase 18 0 - 31 U/L [facility] Total Protein 7.7 6.5 - 8.0 g/dL [facility] Albumin Level 4.5 3.5 - 5.0 g/dL [facility] Alkaline Phosphatase 108 39 - 117 U/L [facility] 07/09/2024 12:5 0 PM EDT 07/09/2024 12:54 PM EDT Generic External Data Provider LAB BLOOD ORDERAB LES Final Result Performing Organization Address [facility] Co de Phone Number [facility] [address] [place] [address] [phone] * (ABNORMAL) Basic Metabolic Panel (07/09/2024 12:50 PM EDT) Sodium 136 135 - 145 mmol/L [facility] Potassium 4.5 3.3 - 5.1 mmol/L [facility] Chloride 98 96 - 108 mmol/L [facility] Carbon Dioxide 25 22 - 29 mmol/L [facility] Anion Gap 18 12 - 20 [facility] Urea Nitrogen (BUN) 20(H) 9 - 16 mg/dL [facility] Creatinine, Serum 0.95 0.5 - 1.4 mg/dL [facility] Creatinine Clr Calc Pharmacy 48.0 [facility] Comment:Provided height and weight: 160.02 cm,52.3 kg.eGFR (calculated from the MDRD study equation) and eCrCl(calculated from the Cockcroft-Gault equation) are based ondifferent parameters and may not yield comparable results.If eCrCl result is absurd, please check patient'sheight/weight. Estimated Glomerular Filt Rate 59 [facility] Comment:Chronic Kidney Disea se: Estimated GFR < 60 mL/min/1.98m2Amagui Kidney Disease: Estimated GFR < 15 mL/min/1.73m2 Glucose 98 60 - 115 mg/dL [facility] Calcium 9.8 8.4 - 10.2 mg/dL [facility] 07/09/2024 12:5 0 PM EDT 07/09/2024 12:54 PM EDT us Generic External Data Provider LAB BLOOD ORDERAB LES Final Result [facility] [address] [place] [phone] * (ABNORMAL) Comprehensive Metabolic Panel (07/01/2024 9:16 AM EDT) Only the most recent of2 resultswithin the time period is included. Sodium 133(L) 135 - 145 mmol/L [facility] Potassium 5.0 3.3 - 5.1 mmol/L [facility] Comment:Slight Hemolysis.Int erpret result with caution. Chloride 97 96 - 108 mmol/L [facility] Carbon Dioxide 25 22 - 29 mmol/L [facility] Anion Gap 16 12 - 20 [facility] Urea Nitrogen (BUN) 15 9 - 16 mg/dL [facility] Creatinine, Serum 0.81 0.5 - 1.4 mg/dL [facility] Creatinine Clr Calc Pharmacy 56.4 [facility] Comment:Provided height and weight: 160.02 cm,52.4 kg.eGFR (calculated from the MDRD study equation) and eCrCl(calculated from the Cockcroft-Gault equation) are based ondifferent parameters and may not yield comparable results.If eCrCl result is absurd, please check patient'sheight/weight. Estimated Glomerular Filt Rate >60 [facility] Comment:Chronic Kidney Disea se: Estimated GFR < 60 mL/min/1.09k6Yfyadg Kidney Disease: Estimated GFR < 15 mL/min/1.73m2 Glucose 100 60 - 115 mg/dL [facility] Calcium 9.7 8.4 - 10.2 mg/dL [facility] Bilirubin, Total 0.8 0.0 - 1.0 mg/dL [facility] Aspartate Amino Transferase 42(H) 5 - 31 U/L [facility] Comment:Slight Hemolysis.Int erpret result with caution. Alanine Aminotransferase 20 0 - 31 U/L [facility] Total Protein 7.7 6.5 - 8.0 g/dL [facility] Albumin Level 4.5 3.5 - 5.0 g/dL [facility] Alkaline Phosphatase 118(H) 39 - 117 U/L [facility] 07/01/2024 9:16 AM EDT 07/01/2024 9:17 AM EDT us Generic External Data Provider LAB BLOOD ORDERAB LES Final Result [facility] [address] [place] [phone] * CT Head w/o Contrast (07/01/2024 8:55 AM EDT) Anatomical Region Laterality Modality Head, Neck Computed Tomogra phy 07/01/2024 8:55 AM EDT Narrative 07/01/2024 9:20 AM EDT ? [facility] ?[address] ?[place] [address] ? CT Scan Report ? Signed ? Patient: Roel,Delilah ?MR#: [id number] ?? 41 ? : 1955 ?Acct:[id number] ? Age/Sex: 68 / F ?ADM Date: 07/01/24 ? Loc: HO.ED ? Attending Dr: ? Ordering Physician: Jhon Ramriez MD ?? Date of Service: 07/01/24 ?? Procedure(s): CT head/brain wo IV con ?? Accession Number(s): [id number] ? cc: Patrick Monet MD; Jhon Ramirez MD ? Report Number: ?? [id number]: Total DLP = ??548.00 mGy-cm ?? EXAMINATION: ?? CT HEAD WITHOUT CONTRAST ? CLINICAL INFORMATION: ?? Technique ? COMPARISON: ?? None available. ? TECHNIQUE: ?? Contiguous axial imaging was performed from the skull base to vertex ?? without intravenous administration of contrast. ? This CT examination was performed using dose optimization techniques as ?? appropriate, variously including the following: ?? *Automated exposure control ?? *Adjustment of mA and/or kV according to patient size (this includes ?? techniques or standardized protocols for targeted exams where dose is ?? matched to indication/reason for exam; i.e. extremities or head) ?? *Use of iterative reconstruction technique ?? DLP: 548 mGy/cm. ? FINDINGS: ?? No acute intra-axial, extra-axial bleed, masses or midline shift. There ?? is no acute infarction evolution. There is no edema. Cui to white ?? matter differentiation is maintained normal. The lateral ventricles are ?? symmetrical in size and configuration without enlargement. Bone windows ?? reveal no calvarial abnormality. There is no scalp soft tissue body. ?? Bilateral paranasal sinuses and mastoid air cells are well-aerated. ? CT/CT head/brain wo IV con ?? IMPRESSION: ?? No acute intracranial process seen. ? Electronically signed by: ??Graeme Castillo MD ??07/01/2024 09:17 AM EDT RP ? Dictated By: ?Anna,Graeme Hernandez MD ? Signed By: ?<Electronically signed by Graeme Castillo MD in OV> ?07/01/24 09 ? DD/ 0855 ? TD/TT: 07/01/24 0910 ? Hollow Handle Knife Assembler: MSM ? Procedure Note Donotuseinterpreter, Image - 07/01/[address] [address] [address] Scan Report Signed Patient: Ai Sevilla#: [id number] 41 : 1955cct:[id number] Age/Sex: 68 / FADM Date: 07/01/24 Loc: HO.ED Attending Dr: Ordering Physician: Jhon Ramirez MD Date of Service: 07/01/24 Procedure(s): CT head/brain wo IV con Accession Number(s): [id number] cc: Patrick Monet MD; Jhon Ramirez MD Report Number: [id number]: Total DLP = 548.00 mGy-cm EXAMINATION: CT HEAD WITHOUT CONTRAST CLINICAL INFORMATION: Technique COMPARISON: None available. TECHNIQUE: Contiguous axial imaging was performed from the skull base to vertex without intravenous administration of contrast. This CT examination was performed using dose optimization techniques as appropriate, variously including the following: *Automated exposure control *Adjustment of mA and/or kV according to patient size (this includes techniques or standardized protocols for targeted exams where dose is matched to indication/reason for exam; i.e. extremities or head) *Use of iterative reconstruction technique DLP: 548 mGy/cm. FINDINGS: No acute intra-axial, extra-axial bleed, masses or midline shift. There is no acute infarction evolution. There is no edema. Cui to white matter differentiation is maintained normal. The lateral ventricles are symmetrical in size and configuration without enlargement. Bone windows reveal no calvarial abnormality. There is no scalp soft tissue body. Bilateral paranasal sinuses and mastoid air cells are well-aerated. CT/CT head/brain wo IV con IMPRESSION: No acute intracranial process seen. Electronically signed by: Graeme Castillo MD 07/01/2024 09:17 AM EDT RP Dictated By: Graeme Castillo MD Signed By: <Electronically signed by Graeme Castillo MD in OV> 07/01/24916 DD/ TD/TT: 07/01/24909 Hollow Handle Knife Assembler: [email or web address] [facility] External Provider IMG CT PROCEDURES Final Result * Yrhb-7-Yabogvxzhshl I Antibodies (IgG, IgA, IgM) (06/19/2024 12:02 PM EDT) B2 Glycoprotein I IgG Antibody <2.0 <20.0 U/mL [facility] Comment:Value Interpretation ----- < 20.0 Antibody not detected> or = 20.0 Antibody detected B2 Glycoprotein I IgM Antibody <2.0 <20.0 U/mL [facility] Comment:Value Interpretation ----- < 20.0 Antibody not detected> or = 20.0 Antibody detected B2 Glycoprotein I IgA Antibody <2.0 <20.0 U/mL [facility] Comment: Value ?Interpretation----- ? < 20.0 ? Antibody not detected> or = 20.0 ?Antibody detectedThe antiphospholipid antibody syndrome (APS) is aclinical-pathologic correlation that includes aclinical event (e.g. arterial or venous thrombosis, morbidity) and persistent positiveantiphospholipid antibodies (IgM, IgG Cardiolipin tir6LEB antibodies greater than the 99th percentile;or a [...] therapy or aging.For additional information, please refer tohttp://education.Labtrip/faq/GBZ237(This link is being provided for informational/educational purposes only.)THIS TEST WAS PERFORMED AT:[id number] [place], [place] ??[phone] W. MASON,MD,PHD 06/19/2024 12:0 2 PM EDT 06/19/2024 12:02 PM EDT Generic External Data Provider LAB BLOOD ORDERAB LES Final Result Performing Organization Address [facility] Co de Phone Number [facility] [address] [place] [phone] * Sm and Sm/BAG MACHINE HELPER Antibodies (06/19/2024 12:02 PM EDT) SM Antibody <1.0 NEG <1.0 NEG [facility] SM/BAG MACHINE HELPER Antibody <1.0 NEG <1.0 NEG [facility] Comment:THIS TEST WAS PERFOR MED AT:[facility] [address] [phone] MEDINA MD 06/19/2024 12:0 2 PM EDT 06/19/2024 12:02 PM EDT Generic External Data Provider LAB BLOOD ORDERAB LES Final Result Performing Organization Address [facility] Co de Phone Number [facility] [address] [place] [phone] * Sjogren's Antibodies (SS-A,SS-B) (06/19/2024 12:02 PM EDT) Sjogren's Antibody (SS-A) <1.0 NEG <1.0 NEG [facility] Sjogren's Antibody (SS-B) <1.0 NEG <1.0 NEG [facility] Comment:THIS TEST WAS PERFOR MED AT:[facility] [address] [phone] MEDINA MD 06/19/2024 12:0 2 PM EDT 06/19/2024 12:02 PM EDT us Generic External Data Provider LAB BLOOD ORDERAB LES Final Result Performing Organization Address [facility]/ZIP Co de Phone Number [facility] [address] [place] [phone] * SCL-70 Antibody (06/19/2024 12:02 PM EDT) SCL-70 Antibody <1.0 NEG <1.0 NEG AI [facility] Comment:THIS TEST WAS PERFOR MED AT:[facility] [address] [phone] MEDINA MD 06/19/2024 12:0 2 PM EDT 06/19/2024 12:02 PM EDT us Generic External Data Provider LAB BLOOD ORDERAB LES Final Result Performing Organization Address [facility] Co de Phone Number [facility] [address] [place] [phone] * DNA (ds) Antibody (06/19/2024 12:02 PM EDT) Anti DNA DS Antibody <1 IU/mL [facility] Comment:IU/mL Interpretation < or = 4 Negative 5-9 Indeterminate > or = 10 PositiveTHIS TEST WAS PERFORMED AT:[facility] [address] [phone] MEDINA MD 06/19/2024 12:0 2 PM EDT 06/19/2024 12:02 PM EDT us Generic External Data Provider LAB BLOOD ORDERAB LES Final Result Performing Organization Address [facility]/ZIP Co de Phone Number [facility] [address] [place] [phone] * (ABNORMAL) Lupus Anticoagulant Evaluation with Reflex (06/19/2024 12:02 PM EDT) Pathologist [facility] Lupus Interpretation see note [facility] Comment:A Lupus Anticoagulan t is not detected.Common causes for a prolonged screen and negativeconfirmatory test include factor deficiencies oranticoagulant therapy.Reference Range: Not DetectedFor additional information, please refer tohttp://education.Labtrip/faq/FYJ17k1(This link is being provided for informational/educational purposes only.)This interpretation is based on the following testresults. PTT (LAC) Screen 44(A) <=40 sec [facility] DRVVT Screen 39 <=45 sec [facility] dRVVT Confirmation TNP H [facility] dRVVT 1:1 Mix TNP [facility] DRVVT 1:1 Mix Interpretation FLP [facility] Hexagonal Phase Neutralization Negative Negative [facility] Comment:THIS TEST WAS PERFOR MED AT:[facility]/[employer] [id number] [place] [address]FZVJNJVCATHERINE LUA MD,PHD Thrombin Clotting Time [facility] 06/19/2024 12:0 2 PM EDT 06/19/2024 12:02 PM EDT us Generic External Data Provider LAB BLOOD ORDERAB LES Final Result [facility] [address] [place] [address] [phone] * Cardiolipin Antibodies (IgA,IgG,IgM) (06/19/2024 12:02 PM EDT) Pathologist [facility] Cardiolipin Antibody (IgG) <2.0 GPL-U/mL [facility] Comment:Value Interpretation ----- < 20.0 Antibody not detected> or = 20.0 Antibody detected Cardiolipin Antibody (IgM) <2.0 MPL-U/mL [facility] Comment: Value ?Interpretation----- ? < 20.0 ? Antibody not detected> or = 20.0 ?Antibody detectedThe antiphospholipid antibody syndrome (APS) is aclinical-pathologic correlation that includes aclinical event (e.g. arterial or venous thrombosis, morbidity) and persistent positiveantiphospholipid antibodies (IgM, IgG Cardiolipin xvf0KDF antibodies greater than the 99th percentile; ora [...] therapy or aging.For additional information, please refer tohttp://education.Labtrip/faq/JEJ287(This link is being provided for informational/educational purposes only.)THIS TEST WAS PERFORMED AT:[employer] [place] [address] ??[phone] MEDINA MD 06/19/2024 12:0 2 PM EDT 06/19/2024 12:02 PM EDT Generic External Data Provider LAB BLOOD ORDERAB LES Final Result [facility] [address] [place] [phone] [phone] * Sed Rate by Modified Silvano (06/19/2024 12:02 PM EDT) Erythrocyte Sedimentation Rate 14 0 - 20 MM/HR [facility] Comment:Patients with polycy themia and many hemoglobin abnormalitiesmay have depressed sed rates whereas patients with anemiamay have elevated sed rates. 06/19/2024 12:0 2 PM EDT 06/19/2024 12:02 PM EDT Generic External Data Provider LAB BLOOD ORDERAB LES Final Result Performing Organization Address [facility] Co de Phone Number [facility] [address] [place] [phone] * Complement Component C3c (06/19/2024 12:02 PM EDT) Complement C3 114 83 - 193 mg/dL [facility] Comment:THIS TEST WAS PERFOR MED AT:[facility] [address] [phone] MEDINA MD 06/19/2024 12:0 2 PM EDT 06/19/2024 12:02 PM EDT Generic External Data Provider LAB BLOOD ORDERAB LES Final Result Performing Organization Address [facility] de Phone Number [facility] [address] [place] [phone] * Complement Component C4c (06/19/2024 12:02 PM EDT) Complement C4 23 15 - 57 mg/dL [facility] Comment:THIS TEST WAS PERFOR MED AT:[facility] [address] [phone] MEDINA MD 06/19/2024 12:0 2 PM EDT 06/19/2024 12:02 PM EDT Generic External Data Provider LAB BLOOD ORDERAB LES Final Result Performing Organization Address [facility] Co de Phone Number [facility] [address] [place] [phone] * C-reactive Protein (06/19/2024 12:02 PM EDT) C Reactive Protein 0.10 < or = 0.50 mg/dL [facility] 06/19/2024 12:0 2 PM EDT 06/19/2024 12:02 PM EDT us Generic External Data Provider LAB BLOOD ORDERAB LES Final Result [facility] [address] [place] [phone] * (ABNORMAL) PATRICK Screen,IFA, with Reflex to Titer and Pattern (06/19/2024 12:02 PM EDT) Anti Nuclear Antibody Screen POSITIVE (A) NEGATIVE [facility] Comment:PATRICK IFA is a first l ine screen for detecting thepresence of up to approximately 150 autoantibodies invarious autoimmune diseases. A positive PATRICK IFA resultis suggestive of autoimmune disease and reflexes totiter and pattern. Further laboratory testing may beconsidered if clinically indicated.For additional information, please refer tohttp://education.EpiCrystals/faq/DVV194(This link is being provided for informational/educational purposes only.) PATRICK Titer 1:80(A) titer [facility] Comment:A low level PATRICK tite r may be present in pre-clinicalautoimmune diseases and normal individuals. Reference Range <1:40 Negative 1:40-1:80 Low Antibody Level >1:80 Elevated Antibody Level PATRICK Pattern Nuclear, Speckled (A) [facility] Comment:Speckled pattern is associated with mixed connectivetissue disease (MCTD), systemic lupus erythematosus(SLE), Sjogren's syndrome, dermatomyositis, andsystemic sclerosis/polymyositis overlap.AC-2,4,5,29: SpeckledInternational Consensus on PATRICK Patterns(https://doi.org/10.1515/dgra-7223-5189)THIS TEST WAS PERFORMED AT:[facility] [place] [phone] MEDINA MD PATRICK TITER 2 (REF LAB) [facility] PATRICK Pattern 2 [facility] PATRICK TITER 3 [facility] PATRICK PATTERN 3 [facility] 06/19/2024 12:0 2 PM EDT 06/19/2024 12:02 PM EDT Generic External Data Provider LAB BLOOD ORDERAB LES Final Result Performing Organization Address [facility]/ZIP Co de Phone Number [facility] [address] [place] [phone] * Protein Creatinine Ratio, Urine (06/19/2024 12:00 PM EDT) Creatinine, Urine 91.68 mg/dL [facility] Protein, Total, Random Urine 10 <12 mg/dL [facility] Protein/Creatin ine Ratio, Ur 0.11 <0.2 [facility] Comment:The spot urine prote in:creatinine ratio may increase to 0.3during normal . 06/19/2024 12:0 0 PM EDT 06/19/2024 1:25 PM EDT Generic External Data Provider LAB URINE ORDERAB LES Final Result Performing Organization Address [facility] Co de Phone Number [facility] [address] [place] [phone] * (ABNORMAL) Urinalysis Complete (06/19/2024 12:00 PM EDT) Color Urine Yellow [facility] Appearance Urine Clear [facility] PH 5.5 5.0 - 9.0 [facility] Glucose Urine UA Negative Negative mg/dL [facility] Urine Blood Trace(A) Negative [facility] Specific [place] - Urine 1.015 1.005 - 1.025 [facility] Urine Protein Negative Neg-Trace mg/dL [facility] Urine Ketones Negative Negative mg/dL [facility] Nitrite Urine Negative Negative [facility] Leukocyte Esterase Urine Negative Negative [facility] RBC Urine 3-5(A) 0 - 2 /HPF [facility] Urine WBC 0-5 0 - 5 /HPF [facility] Urine Squamous Epithelial Cell 6-10 0 - 2 /HPF [facility] Urine Bacteria 2+ None Seen [facility] Hyaline Casts, Urine 0-2 0 - 2 /LPF [facility] 06/19/2024 12:0 0 PM EDT 06/19/2024 1:25 PM EDT us Generic External Data Provider LAB URINE ORDERAB LES Final Result [facility] [address] [place] [phone] [phone] * Biopsy cervix (05/02/2024 11:47 AM EST) us Historical Provider MD IN CLINIC/BEDSIDE ORDERAB LES Final Result * Hematoxylin and Eosin Stain (05/02/2024 7:49 AM EST) Only the most recent of2 resultswithin the time period is included. 05/02/2024 7:49 AM EST 05/02/2024 8:33 AM EST Narrative [facility] - 05/06/2024 9:57 AM EST ----- ------- Name: Delilah Sevilla ? Age/Sex: 68/F ? : 1955 Unit#: [id number] ?? Attend Dr: Niall Pearson MD ?Re05/02/24 ?Status: DEP [facility] ? Location: HO.SSS ?Disch: ? ----- ------- SPEC : [id number] ? RECD: 05/02/24 ? STATUS: ??SOUT ? REQ NUM: [id number] ? [place]: 05/02/24 ? SUBM DR: Niall [...] Sevilla ? Age/Sex: 68/F ? : 1955 [facility]#: [id number] Unit#: [id number] ?? Attend Dr: Niall Pearson MD ?Re05/02/24 ?Status: DEP SDC ? Location: HO.SSS ?Disch: ? ----- ------- SPEC : [id number] ? RECD: 05/02/24 ? STATUS: ??SOUT ? REQ NUM: [id number] ? [place]: 05/02/24 ? SUBM DR: Niall Pearson MD ? ENTERED: ??05/02/24 ?SP TYPE: Surgical ? OTHR DR: Patrick Monet MD ? ORDERED: ??HE Stain/6, Gross Micro L4/3 ? Copies To: ?? Patrick Monet MD ?? [facility] ?? [address] ?? [place] [address] ?? [phone] ?? Niall Pearson MD ?? [facility] ?? [address] [facility] [address] ?? [place] [address] ?? [phone] ----- ------- Signed (signature on file) Sejal Romero MD 05/06/24 0957 ? ----- ------- ? END OF REPORT ? us Generic External Data Provider LAB BLOOD ORDERAB LES Final Result [facility] [address] [place] [address] [phone] * BI Mammogram Diagnostic Tomosynthesis Bilateral (04/15/2024 10:00 AM EST) Anatomical Region Laterality Modality Breast Bilateral Mammography 04/15/2024 10:0 0 AM EST Narrative 04/15/2024 10:44 AM EST ? [facility] ? [address] [facility] ?[place] [address] ? Mammography Report ? Signed ? Patient: Roel,Delilah ?MR#: [id number] ?? 41 ? : 1955 ?Acct:[id number] ? Age/Sex: 68 / F ?ADM Date: 02/11/25 ? Loc: HO.MAMMO ? Attending Dr: Patrick Monet MD ? Ordering Physician: Patrick Monet MD ?Results: 3.6MProbably Benign Finding - Short 6 M F/U ?? Suggested ? Date of Service: 04/15/24 ?Follow Up: 6 Month F/U ? Procedure(s): MM tomosynthesis diagnostic BI ?? Accession Number(s): [id number] ? cc: Patrick Monet MD ? EXAMINATION: [...] Signed By: ?<Electronically signed by Elda Graham, in OV> ? 04/15/24 1041 ? DD/ 1000 ? TD/TT: 04/15/24 1036 ? Hollow Handle Knife Assembler: ? Procedure Note Sita, Image - 04/15/2024 Mauri [facility] [address] [place] [address] Mammography Report Signed Patient: Ai Sevilla#: [id number] 39 : 8Acct:[id number] Age/Sex: 68 / FADM Date: 04/15/24 Loc: HO.MAMMO Attending Dr: Patrick Monet MD Ordering Physician: Patrick Monet MD Results: 3.6MProbably Benign Finding - Short 6 M F/U Suggested Date of Service: 04/15/24Follow Up: 6 Month F/U Procedure(s): MM tomosynthesis diagnostic BI Accession Number(s): [id number] cc: Patrick Monet MD EXAMINATION: MM DIAGNOSTIC [...] 04/15/24 1041 DD/ 1000 TD/TT: 04/15/24 1036 Hollow Handle Knife Assembler: Patrick Monet MD IMG BI PROCEDURES Final Result * Colposcopy (04/14/2024 3:06 PM EST) us Historical Provider MD IN CLINIC/BEDSIDE ORDERAB LES Final Result * (ABNORMAL) Hm Colonoscopy (12/25/2023) Colonoscopy Abnormal( A) Normal [facility] Comment:TA + hyperplastic po lyps Patrick Monet MD HEALTH MAINTENANCE Final Result [facility] [address] [place] [phone] * (ABNORMAL) Lipid Panel, Standard (12/19/2023 9:22 AM EDT) Triglycerides 79 <150 mg/dL [facility] Comment:Desirable Triglyceri de: less than 150 mg/dLBorderline High Triglyceride 150-199 mg/dLHigh Triglyceride: 200-499 mg/dLVery High Triglyceride: greater than or equal to 5OO mg/dL Cholesterol 224(H) <200 mg/dL [facility] Comment:Desirable Cholestero l: less than 200 mg/dLBorderline High Cholesterol: 200-239 mg/dLHigh Cholesterol: greater than 239 mg/dL LDL Cholesterol Calculated 117(H) <100 mg/dL [facility] Comment:Desirable LDL: less than 100 mg/dLNear Optimal/Above Optimal LDL: 110- 129 mg/dLBorderline High LDL: 130-159 mg/dLHigh LDL: 160-189 mg/dLVery High LDL: greater than or equal to 190 mg/dL HDL Cholesterol 92 >40 mg/dL [facility] Comment:Desirable HDL: great er than 40 mg/dL Note: This HDL assay may give artificially low results in patients with liver disease. 12/19/2023 9:22 AM EDT 12/19/2023 11:43 AM EDT us Patrick Monet MD LAB BLOOD ORDERABLES Fin al Result [facility] [address] [place] [address] [phone] * Hepatitis Panel, General (12/04/2023 9:36 AM EDT) Hepatitis A IgM Nonreactive Nonreactive [facility] Comment:IgM antibodies to MARTINES V not detected; does not exclude earlyacute or recovered HAV infection. ~Hepatitis B Surface Antibody REACTIVE Nonreactive [facility] Comment:REACTIVE: > 11.99 mI U/mL Hepatitis B Core Antibody Nonreactive Nonreactive [facility] Hepatitis C Antibody Nonreactive Nonreactive [facility] Comment:Antibodies to HCV no t detected; does not exclude early acuteHCV infection. Hepatitis B Surface Ag Negative Negative [facility] Blood 12/04/2023 9:36 AM EDT 12/04/2023 11:01 AM EDT Patrick Monet MD LAB BLOOD ORDERABLES Fin al Result [facility] [address] [place] [phone] [phone] * (ABNORMAL) ThinPrep?? Imaging Pap Refl HPV mRNA(if ASCUS,ASC- H,LSIL,HSIL,TWILA)Refl Genotype (10/18/2023 10:43 AM EDT) HPV nRNA E6/E7 Detected(A ) Not Detected [facility] Comment:Methodology: Transcr iption-Mediated AmplificationThis assay detects E6/E7 viral messenger RNA (mRNA) from 14high-risk HPV types (16,18,31,33,35,39,45,51,52,56,58,59,66,68).Cervical sources are required for HPV testing.If a vaginal source from a patient who has had atotal hysterectomy with removal of cervix wassubmitted, please contact the testing laboratoryfor alternative testing options.For additional information, please refer tohttp://education.Labtrip/faq/WWF202e1(This link if provided for information/educational purposes only.)THIS TEST WAS PERFORMED AT:[facility] [place] [phone] MEDINA MD HPV 16,18/45 NOT DETECTED NOT DETECTED [facility] Comment:Methodology: Transcr iption Mediated AmplificationCervical sources are required for HPV testing.If a vaginal source from a patient who has had atotal hysterectomy with removal of cervix wassubmitted, please contact the testing laboratoryfor alternative testing options.THIS TEST WAS PERFORMED AT:[facility] [place] [phone] MEDINA MD SOURCE: SEE NOTE [facility] Comment:None given Report Status: TNP [facility] Clinical Information: SEE NOTE [facility] Comment:None given LMP: SEE NOTE [facility] Comment:NONE GIVEN Prev. PAP: SEE NOTE [facility] Comment:NONE GIVEN Prev. BX: SEE NOTE [facility] Comment:NONE GIVEN Statement Of Adequacy: SEE NOTE [facility] Comment:Satisfactory for naheed luation.Endocervical/transformation zone componentpresent. General Categorization: SEE NOTE(A) [facility] Comment:Cytology Results: Ep ithelial Cell Abnormality Interpretation/Result: SEE NOTE(A) [facility] Comment:Atypical Squamous Ce lls of UndeterminedSignificance (ASC-US) Cytology Comment SEE NOTE [facility] Comment:This Pap test has be en evaluated with computerassisted technology. Aircraft Engine Specialist: SEE NOTE [facility] Comment:DCR, CT(ASCP)CT scre ening location: [place] [address] Review Aircraft Engine Specialist: [facility] Pathologist SEE NOTE [facility] Comment:Valerio Romero M.D./M.S .,Board Certified in Anatomic Pathology andBoard Eligible Cytopathology(electronic signature)Consulting [facility]1 [place], [place] [phone] PAP Infection [facility] See Note SEE NOTE [facility] Comment:EXPLANATORY NOTE:The Pap is a screening test for cervical cancer. It isnot a diagnostic test and is subject to false negativeand false positive results. It is most reliable when asatisfactory sample, regularly obtained, is submittedwith relevant clinical findings and history, and whenthe Pap result is evaluated along with historic andcurrent clinical information.THIS TEST WAS PERFORMED AT:[facility]-3 ANATOMIC PATHOLOGY1 [place] [address]AYMZSLETICIA REYEZ MD 10/18/2023 10:4 3 AM EDT 10/18/2023 4:30 PM EDT Narrative [facility] - 10/31/2023 11:52 AM EDT SEE SCANNED RESULTS IN EMR Patrick Monet MD LAB CYTOLOGY ORDERABLES Final Result [facility] [address] [place] [address] [phone] from Last 3 Months or Most Recently Relevant to Health Maintenance Insurance [facility] STANDARD [facility] [employer]TERM OPTIONS (HMO D-SNP) Care Teams Powerhouse Mechanic Apprentice Relationship Specialty Start Date End Date Patrick Monet MD [address] [place] [address] PCP - General Family Medicine 12/12/19 Sung Rand, PharmD [address] [place] [phone] Pharmacist Internal Medicine 05/27/24
--- OUTSIDE RECORDS SUMMARY | 2024-07-09 14:49 | XMS_ITS | Encounter Summary ---
Author Organization [employer] Address [address] [facility] [address] [place] [address] Care Team Providers Care Windows Systems Architect Name Role Phone Cristy Monet MD Primary Care Provider + Sung Rand PharmD Unavailable [phone] Encounter Details Date Type Department Care Team (Late st Contact Info) Description 03/24/2022 Telephone [facility] [address] [place] [phone] Kalina Page RN Social History Tobacco Use [...] Description 07/14/2024 1:30 PM EDT Clinical Support [facility] [address] [place] [phone] 07/21/2024 11:00 AM EDT Clinical Support [facility] [address] [place] [address] 08/12/2024 2:00 PM EDT Telemedicine [address] [address] Sung Rand, PharmD [address] [place] [address] 08/22/2024 10:30 AM EDT Office Visit [address] [address] Cristy Monet MD [address] [place] [phone] documented as of this encounter Visit Diagnoses Not on filedocumented in this encounter Care Teams Windows Systems Architect Relationship Specialty Start Date End Date Cristy Monet MD [address] [place] [phone] PCP - General Family Medicine 12/12/19 Sung Rand, DaeD [address] [place] [address] [phone] Pharmacist Internal Medicine 05/27/24 documented as of this encounter
--- OUTSIDE RECORDS SUMMARY | 2024-07-09 14:49 | XMS_ITS | Encounter Summary ---
Author Organization [employer] Address [address] [facility] [address] [address] [place] [address] Care Team Providers Care Director Of Social Media Marketing Name Role Phone Cristy Monet MD Primary Care Provider + Sung Rand PharmD Unavailable [phone] Encounter Details Date Type Department Care Team (Late st Contact Info) Description 04/17/2024 Orders Only [facility] [address] [place] [address] Provider, MD Ida Social History Tobacco Use Types Packs/Day Years [...] Description 07/14/2024 1:30 PM EDT Clinical Support [address] [address] 07/21/2024 11:00 AM EDT Clinical Support [address] [address] 08/12/2024 2:00 PM EDT Telemedicine [address] [address] Sung Rand, PharmD [address] [place] [phone] 08/22/2024 10:30 AM EDT Office Visit [address] [address] Cristy Monet MD [address] [place] [phone] documented as of this encounter Procedures Procedure Name Priority Date/Time Associated Diagnosis Comments COLPOSCOPY Routine 04/14/2024 3:06 PM EST documented in this encounter Results * Colposcopy (04/14/2024 3:06 PM EST) us Historical Provider IN CLINIC/BEDSIDE ORDERAB LES Final Result documented in this encounter Visit Diagnoses Not on filedocumented in this encounter Care Teams Director Of Social Media Marketing Relationship Specialty Start Date End Date Cristy Monet MD [address] [place] [phone] PCP - General Family Medicine 12/12/19 Sung Rand, PharmD [address] [place] [address] Pharmacist Internal Medicine 05/27/24 documented as of this encounter
--- OUTSIDE RECORDS SUMMARY | 2024-07-09 14:49 | XMS_ITS | Encounter Summary ---
Author Organization [employer] Address [address] [place] [address] Care Team Providers Care Assistant Bookkeeper Name Role Phone Cristy Monet MD Primary Care Provider + Sung Rand PharmD Unavailable [phone] Reason for Visit * Reason Comments Med Refill Encounter Details Date Type Department Care Team ([facility] st Contact Info) Description 02/03/2024 Refill [facility] [address] [place], [place] [phone] Niru Oakes MD [address] [place] [address] Resistant hypertension Social History Tobacco Use Types [...] Description 07/14/2024 1:30 PM EDT Clinical Support [address] [address] 07/21/2024 11:00 AM EDT Clinical Support [address] [address] 08/12/2024 2:00 PM EDT Telemedicine [address] [address] Sung Rand PharmD [address] [place] [address] 08/22/2024 10:30 AM EDT Office Visit [address] [address] Cristy Monet MD [address] [place] [phone] documented as of this encounter Visit Diagnoses Diagnosis Resistant hypertension documented in this encounter Care Teams Assistant Bookkeeper Relationship Specialty Start Date End Date Cristy Monet MD [address] [place] [phone] PCP - General Family Medicine 12/12/19 Sung Rand, DaeD [address] [place] [phone] Pharmacist Internal Medicine 05/27/24 documented as of this encounter
--- OUTSIDE RECORDS SUMMARY | 2024-07-09 14:49 | XMS_ITS | Encounter Summary ---
Author Organization [employer] Address [address] [facility] 7t [place] [address] Care Team Providers Care Rib Knitter Name Role Phone rCisty Monet MD Primary Care Provider + Sung Rand PharmD Unavailable [phone] Encounter Details Date Type Department Care Team (Late st Contact Info) Description 09/10/[address] [facility] [address] [place], [place] [phone] Cristy Monet MD [address] [place] [address] Social History Tobacco Use Types Packs/Day Years [...] t he electric, gas, oil or water [employer] threatened to shut off services in your [...] Description 07/14/2024 1:30 PM EDT Clinical Support [address] [address] 07/21/2024 11:00 AM EDT Clinical Support [address] [address] 08/12/2024 2:00 PM EDT Telemedicine [address] [address] Sung Rand, PharmD [address] [place] [address] 08/22/2024 10:30 AM EDT Office Visit [address] [address] Cristy Monet MD [address] [place] [phone] documented as of this encounter Visit Diagnoses Not on filedocumented in this encounter Care Teams Rib Knitter Relationship Specialty Start Date End Date Cristy Monet MD [address] [place] [phone] PCP - General Family Medicine 12/12/19 Sung Rand, PharmD [address] [place] [phone] Pharmacist Internal Medicine 05/27/24 documented as of this encounter
--- OUTSIDE RECORDS SUMMARY | 2024-07-09 14:49 | XMS_ITS | Encounter Summary ---
Author Organization [employer] Address [address] [facility] 7t [place] [address] Care Team Providers Care Net Mvc Developer Name Role Phone Cristy Monet MD Primary Care Provider + Sung Rand PharmD Unavailable [phone] Reason for Visit * Reason Comments Med Refill Encounter Details Date Type Department Care Team ([facility] st Contact Info) Description 01/14/2024 Refill [facility] [address] [place], [place] [phone] Cristy Monet MD [address] [place], [place] [phone] Social History Tobacco Use Types Packs/Day Years [...] Description 07/14/2024 1:30 PM EDT Clinical Support [address] [address] 07/21/2024 11:00 AM EDT Clinical Support [address] [address] 08/12/2024 2:00 PM EDT Telemedicine [address] [address] Sung Rand PharmD [address] [place] [address] 08/22/2024 10:30 AM EDT Office Visit [address] [address] Cristy Monet MD [address] [place] [phone] documented as of this encounter Visit Diagnoses Not on filedocumented in this encounter Care Teams Net Mvc Developer Relationship Specialty Start Date End Date Cristy Monet MD [address] [place] [phone] PCP - General Family Medicine 12/12/19 Sung Rand, DaeD [address] [place] [address] Pharmacist Internal Medicine 05/27/24 documented as of this encounter
--- OUTSIDE RECORDS SUMMARY | 2024-07-09 14:49 | XMS_ITS | Encounter Summary ---
Author Organization [employer] Address [address] [facility] [address] [place] [address] Care Team Providers Care Ceo & Founder Name Role Phone Cristy Monet MD Primary Care Provider + Sung Rand PharmD Unavailable [phone] Encounter Details Date Type Department Care Team (Late st Contact Info) Description 03/28/2022 Orders Only [facility] [address] [place] [phone] Odilia Smiley LPN Social History Tobacco Use [...] Description 07/14/2024 1:30 PM EDT Clinical Support [facility] [address] [place] [phone] 07/21/2024 11:00 AM EDT Clinical Support [facility] [address] [place] [phone] 08/12/2024 2:00 PM EDT Telemedicine [address] [phone] Sung Rand, PharmD [address] [place] [address] 08/22/2024 10:30 AM EDT Office Visit [address] [phone] Cristy Monet MD [address] [place] [address] documented as of this encounter Visit Diagnoses Not on filedocumented in this encounter Care Teams Ceo & Founder Relationship Specialty Start Date End Date Cristy Monet MD [address] [place] [address] [phone] PCP - General Family Medicine 12/12/19 Sung Rand, DaeD [address] [place] [address] [phone] Pharmacist Internal Medicine 05/27/24 documented as of this encounter
[2024-07-09 14:51] VITALS: BP 159/86
[2024-07-09] MEDS: Losartan Potassium 50 MG TABLET 100 MG PO (14:51)
[2024-07-09 14:52] VITALS: BP 159/86; PULSE 59; RESP 20; TEMP 36.6; O2SAT 97
[2024-07-09 16:58] VITALS: BP 151/76; PULSE 56; RESP 16; TEMP 36.7; O2SAT 97
== END 2024-07-09 16:59 | disposition home or self-care (01) ==
PROVIDERS: Physician Assistant; Emergency Provider Emergency Medicine; PCP Internal Medicine
DX: R00.1 Bradycardia, unspecified (principal); I10 Essential (primary) hypertension; R94.31 Abnormal electrocardiogram [ECG] [EKG]; F17.210 Nicotine dependence, cigarettes, uncomplicated; Z79.899 Other long term (current) drug therapy
CPT/HCPCS: 36415; 80048; 80076; 84484; 85025; 93005; 99283; 99284

== ENCOUNTER → 2024-07-09 12:33 | Outpatient (BNV) | payer OTHER, SELFPAY | PROVIDERS: Emergency Provider Emergency Medicine; PCP Internal Medicine; Visit Provider Internal Medicine | DX: R00.1 Bradycardia, unspecified (principal) | CPT/HCPCS: 93010 ==

== ENCOUNTER 2024-08-15 09:02 | Emergency (ER) | payer OTHER, SELFPAY ==
[2024-08-15] VITALS (14 sets, daily range): BP systolic 118–179; BP diastolic 83–109; PULSE 68–99; RESP 12–17; TEMP 36.7–36.9; O2SAT 96–100; BMI 22.5
--- NOTE | ~2024-08-15 | CT_ITS ---
EXAMINATION: CT ABDOMEN AND PELVIS WITHOUT CONTRAST CLINICAL INFORMATION: Severe central abdominal pain, KATHARINE. COMPARISON: 01/09/2023. TECHNIQUE: Multidetector volumetric imaging was performed from the superior aspect of the liver through the pubic symphysis. Sagittal and coronal reformatted images were obtained on the technologist's workstation. This CT examination was performed using dose optimization techniques as appropriate, variously including the following: *Automated exposure control *Adjustment of mA and/or kV according to patient size (this includes techniques or standardized protocols for targeted exams where dose is matched to indication/reason for exam; i.e. extremities or head) *Use of iterative reconstruction technique FINDINGS: LUNG BASES: Mild dependent atelectasis is present. Lung bases otherwise clear. No effusions. Normal heart size. Normal GE junction. LIVER, GALLBLADDER, AND BILIARY TREE: The liver is normal in size, shape, and attenuation. No suspicious focal hepatic lesion or biliary ductal dilatation is present. 1.0 cm segment 4B cyst present, tiny segment 6 cyst. The gallbladder is unremarkable with no evidence of radiopaque gallstones, gallbladder wall thickening, or obvious pericholecystic inflammatory changes. PANCREAS: Unremarkable. SPLEEN: Unremarkable. ADRENAL GLANDS: Mild bilateral hyperplasia. KIDNEYS AND URETERS: The kidneys are normal in size, shape, and attenuation. No hydronephrosis, hydroureter, or calculi seen. No perinephric stranding. There is a right lower pole 2.1 cm simple cyst. BLADDER: Unremarkable. GASTROINTESTINAL TRACT: Normal appendix is visualized. There are a few scattered colonic diverticula present. There is no colonic wall thickening or inflammation. The rectum appears normal. The small bowel is normal in caliber and course. No wall thickening or inflammation. The stomach, and duodenum have a normal appearance. There are no infiltrative changes in the small bowel mesentery. ABDOMINAL WALL: No significant hernia is appreciated. There are a few injection granulomata in the buttock regions. Focus of fat necrosis suspected right hip (series 3, image 77). LYMPH NODES: Normal. VASCULAR: Mild atheromatous calcification of the aorta and iliac vessels, without aneurysm. PELVIC VISCERA: The uterus and adnexa are unremarkable. OSSEOUS STRUCTURES: No suspicious lytic or blastic bone lesions. There is a right convex lumbar scoliosis. There are degenerative changes throughout the spine. There are no acute bone abnormalities. CT/CT abdomen pelvis wo IV con IMPRESSION: 1. No acute findings in the abdomen or pelvis. 2. Additional ancillary findings as discussed in the body of the report. Electronically signed by: Kiran Helms MD 08/15/2024 11:58 AM EDT
--- NOTE | 2024-08-15 09:31 | ECG_ITS ---
Test Reason : cp Blood Pressure : */* mmHG Vent. Rate : 92 BPM Atrial Rate : 92 BPM P-R Int : 128 ms QRS Dur : 76 ms QT Int : 364 ms P-R-T Axes : 67 21 56 degrees QTcB Int : 450 ms Normal sinus rhythm Normal ECG When compared with ECG of 09-Jul-2024 12:43, Vent. rate has increased by 39 bpm Referred By: Generic ED Physician Electronically Signed By: JAN LAYNE MD
[2024-08-15 09:46] LABS: MANUAL DIFF FLAG NO
[2024-08-15 09:48] LABS: Basophils Absolute Auto 0.1 X10*3/uL (0.0-0.2); Basophils Percent Auto 0.4 % (0-2); Hematocrit 42.1 % (37.0-47.0); Hemoglobin 14.9 g/dl (12.0-16.0); Imm Gran Abs Auto 0.04 X10*3/uL (0.00-0.03); Imm Gran Pct Auto 0.3 % (0.0-0.4); Lymphocytes Absolute Auto 2.2 X10*3/uL (1.2-4.9); Lymphocytes Percent Auto 15.6 % (20-40); Mean Corpuscular HGB Conc 35.4 g/dl (31.0-35.0); Mean Corpuscular Hemoglobin 31.6 pg (27.0-33.0); Mean Corpuscular Volume 89.4 fL (80.0-98.0); Mean Platelet Volume 8.6 fL (9.4-12.3); Monocytes Absolute Auto 1.2 X10*3/uL (0.1-1.2); Monocytes Percent Auto 8.7 % (2-11); Neutrophils Absolute Auto 10.5 x10*3/uL (2.0-8.3); Platelet Count 346 X10*3/uL (160-400); Red Blood Count 4.71 X10*6/uL (4.20-5.50); Red Cell Distribution Width 12.1 % (11.0-16.0)
[2024-08-15 10:07] LABS: Alanine Aminotransferase 29 U/L (0-31); Albumin Level 5.1 g/dL (3.5-5.0); Alkaline Phosphatase 114 U/L (39-117); Anion Gap 18 (12-20); Aspartate Amino Transferase 40 U/L (5-31); Bilirubin Direct 0.3 mg/dL (0.0-0.5); Bilirubin Total 0.9 mg/dL (0.0-1.0); Blood Urea Nitrogen 49 mg/dL (9-16); Calcium 9.8 mg/dL (8.4-10.2); Carbon Dioxide 26 mmol/L (22-29); Chloride 94 mmol/L (96-108); Estimated Glomerular Filt Rate 19; Glucose Random 128 mg/dL (60-115); Potassium 3.6 mmol/L (3.3-5.1); Sodium 134 mmol/L (135-145); Total Protein 8.5 g/dL (6.5-8.0)
[2024-08-15 10:15] LABS: Troponin-I High Sensitivity 13.7 ng/L (<3.5-17.0)
--- NOTE | 2024-08-15 10:32 | ED.ABDPAIN ---
HPI - Abdominal Pain General Chief Complaint: Abdominal Pain Stated Complaint: Vomiting, chills Time Seen by Provider: 08/15/24 10:28 Source: patient Mode of arrival: ambulatory Limitations: no limitations History of Present Illness ED Provider: Jm Morris HPI narrative: 68-year-old [place]uneian-speaking female with a history of hypertension, RA, who presents to the ER for evaluation of intermittent sharp epigastric pain along with nausea and vomiting for the last 3 days. She reports every time she tries to eat something she develops pain and vomits. She reports inability to tolerate p.o.. She reports no bowel movement in the last 3 days either which she attributes to not eating. She denies any associated fever or chills. No shortness a breath or chest pain. No urinary symptoms. No one else at home with similar symptoms. MD elicited complaint: abdominal pain Pertinent past history: none Onset (ago): day(s) (3) Pain Consistency: intermittent Location: epigastric Severity: severe Quality: stabbing and sharp Radiation: none Migration to: no migration Exacerbating factors: eating Relieving factors: nothing Associated symptoms: nausea, vomiting and constipation Related Data Home Medications ?Medication ?Instructions ?Recorded ?Confirmed aripiprazole 5 mg tablet 5 mg PO DAILY 05/09/23 07/01/24 calcium 500 mg (as 1 tab PO BID 05/09/23 07/01/24 carbonate)-vitamin D3 5 mcg (200 unit) tablet (Oyster Shell Calcium-Vitamin D3) hydrochlorothiazide 25 mg tablet 25 mg PO DAILY 05/09/23 07/01/24 losartan 100 mg tablet 100 mg PO DAILY 05/09/23 08/15/24 metoprolol tartrate 25 mg tablet 25 mg PO BID 05/09/23 08/15/24 pravastatin 40 mg tablet 40 mg PO DAILY 05/09/23 07/01/24 zolpidem 5 mg tablet 5 mg PO BEDTIME PRN Insomnia 05/09/23 07/01/24 citalopram 20 mg tablet 20 mg PO DAILY 06/13/23 07/01/24 ipratropium 20 mcg-albuterol 100 inhalation 06/13/23 06/19/24 mcg/actuation mist for inhalation (Combivent Respimat) clonidine HCl 0.1 mg tablet 0.1 mg PO BID 04/29/25 04/29/25 clonidine HCl 0.1 mg tablet 0.1 mg PO BID 07/01/24 08/15/24 amlodipine 5 mg tablet 5 mg PO DAILY 08/15/24 08/15/24 Previous Rx's ?Medication ?Instructions ?Recorded isoniazid 300 mg tablet 300 mg PO DAILY 30 days #30 tabs 12/31/23 pyridoxine (vitamin B6) 50 mg 50 mg PO DAILY 30 days #30 tabs 12/31/23 tablet hydroxychloroquine 200 mg tablet 200 mg PO .COMPLEX 90 days #180 06/19/24 (Plaquenil) tabs ondansetron 4 mg disintegrating 4 mg PO Q8H PRN nausea and 08/15/24 tablet vomiting #7 tabs Allergies Allergy/AdvReac Type Severity Reaction Status Date / Time No Known Allergies Allergy Mild Verified 08/15/24 09:30 Review of Systems Review of Systems Yes all other systems are reviewed and are negative [facility] Past Medical History Medical History Long-term use of Plaquenil Seronegative rheumatoid arthritis Positive TB test Encounter before starting medication Smoker unmotivated to quit Inflammatory arthritis Bilateral hand swelling Joint pain in both hands High blood cholesterol HTN (hypertension) Surgical History Hx of esophagogastroduodenoscopy Hx of colonoscopy Social History Social History Household Members Other:: lives alone Are you a primary post acute care nurse practitioner to a significant other at home: No Do you presently have visiting nurse or other home services: No Alcohol intake: current Alcohol intake frequency: a few times a week Alcohol type: beer Patient Tobacco Use Status: Current everyday Tobacco user Tobacco use type: Cigarette Cigarette Packs Per Day: 1 Cigarettes Per Day: 6 Smoked in Last 30 Days: Yes Second Hand Smoke Exposure: No Substance Use Type: Marijuana Advance Directives: Yes Advance Directives Information Provided: Yes Advance Directives on File: No Do you have a plan to hurt others: No Plan Physical Exam ED Vital Signs: Vital Signs - 24 hr 08/15/24 09:28 08/15/24 10:47 08/15/24 10:51 Temperature 98.5 F 98.4 F Pulse Rate 99 77 Respiratory Rate 16 13 Blood Pressure 159/105 H 179/106 H 179/106 H Pulse Oximetry 100 100 Oxygen Delivery Method Room Air Room Air 08/15/24 11:03 08/15/24 11:18 08/15/24 11:34 Temperature Pulse Rate Respiratory Rate Blood Pressure 155/109 H 143/89 H 137/86 Pulse Oximetry Oxygen Delivery Method 08/15/24 11:35 08/15/24 11:38 08/15/24 11:49 Temperature 98.1 F Pulse Rate 87 87 70 Respiratory Rate 17 13 Blood Pressure 137/86 137/86 127/88 Pulse Oximetry 96 100 Oxygen Delivery Method Room Air Room Air 08/15/24 12:00 08/15/24 13:43 Temperature 98.1 F 98.0 F Pulse Rate 70 68 Respiratory Rate 13 12 Blood Pressure 118/83 138/92 H Pulse Oximetry 99 100 Oxygen Delivery Method Room Air Room Air BMI result Body Mass Index 22.5 Appearance: Alert. Oriented X3. No acute distress. Head: normocephalic, atraumatic. Eyes: Pupils equal, round and reactive to light. ENT: Pharynx normal. No tonsillar swelling or exudate. Neck: Normal inspection. Neck supple. CVS: Normal heart rate and rhythm. Pulses normal. Respiratory: No respiratory distress. Breath sounds normal. Abdomen: Soft with moderate epigastric tenderness to deep palpation, no rebound or guarding, normoactive +BS x4 Skin: Skin warm and dry. Normal skin color. Normal skin turgor. No rashes. Extremities: No lower extremity edema. No joint swelling. Neuro/psych: Oriented X 3. No motor deficit. No sensory deficit. CN II-XII intact. Normal speech and cognition. Medical Decision Making Medical Decision Making MDM Narrative: 68-year-old female with history of hypertension and rheumatoid arthritis presenting to the ER for evaluation of intermittent, severe, postprandial epigastric pain with recurrent vomiting. She arrives to the ER afebrile, hypertensive 150/100. She did not take her Lopressor this morning. Abdomen is soft with moderate epigastric tenderness. No signs of peritonitis. Labs showing an KATHARINE with BUN 49 and SCr 2.53 from a baseline of 20/0.95 in July. Presumed prerenal. IV fluids ordered. After 2 L IV fluids repeat chemistry was performed which showed improvement in KATHARINE with BUN 39 and creatinine of 1.75. CT scan without any acute intra-abdominal findings. Patient feeling much better. She was given a full picture of water and crackers and she drank the entire picture of water. She would like to go home. Comfortable discharge home with continuing oral hydration and supportive care. Patient agrees with plan. Encouraged outpatient follow-up to ensure resolution of her KATHARINE Differential Diagnosis Differential Diagnoses: The differential diagnosis associated with the presentation includes Pancreatitis, gastritis, peptic ulcer disease, perforated ulcer, cholecystitis, KATHARINE, dehydration Admission/Observation Consideration of admission/observation: Escalation of care including admission/observation considered Lab Data MDM Lab Attestation statement: I reviewed the patient's lab results. 08/15/24 09:42 08/15/24 15:00 Labs: Lab Results 08/15/24 08/15/24 08/15/24 Range/Units 09:42 12:20 15:00 WBC 14.0 H (4.8-10.8) X10*3/uL RBC 4.71 (4.20-5.50) X10*6/uL Hgb 14.9 (12.0-16.0) g/dl Hct 42.1 (37.0-47.0) % MCV 89.4 (80.0-98.0) fL MCH 31.6 (27.0-33.0) pg MCHC 35.4 H (31.0-35.0) g/dl RDW 12.1 (11.0-16.0) % Plt Count 346 (160-400) X10*3/uL MPV 8.6 L (9.4-12.3) fL Immature Gran % (Auto) 0.3 (0.0-0.4) % Neut % (Auto) 75.0 H (45-73) % Lymph % (Auto) 15.6 L (20-40) % Willacy % (Auto) 8.7 (2-11) % Eos % (Auto) 0.0 (0-4) % Baso % (Auto) 0.4 (0-2) % Lymph # (Auto) 2.2 (1.2-4.9) X10*3/uL Willacy # (Auto) 1.2 (0.1-1.2) X10*3/uL Eos # (Auto) 0.0 (0.0-0.4) X10*3/uL Baso # (Auto) 0.1 (0.0-0.2) X10*3/uL Abs Immat Gran (auto) 0.04 H (0.00-0.03) X10*3/uL Absolute Neuts (auto) 10.5 H (2.0-8.3) x10*3/uL Absolute Nucleated RBC 0.000 (0.0-0.012) X10*3/uL Nucleated RBC % (auto) 0.0 (0.0-0.2) /100WBC Sodium 134 L 134 L (135-145) mmol/L Potassium 3.6 3.4 (3.3-5.1) mmol/L Chloride 94 L 97 (96-108) mmol/L Carbon Dioxide 26 28 (22-29) mmol/L Anion Gap 18 12 (12-20) BUN 49 H 39 H (9-16) mg/dL Creatinine 2.53 H 1.75 H (0.5-1.4) mg/dL Estim Creat Clear Calc 18.0 26.1 Estimated GFR 19 29 Random Glucose 128 H 83 (60-115) mg/dL Calcium 9.8 9.1 D (8.4-10.2) mg/dL Total Bilirubin 0.9 (0.0-1.0) mg/dL Direct Bilirubin 0.3 (0.0-0.5) mg/dL AST 40 H (5-31) U/L ALT 29 (0-31) U/L Alkaline Phosphatase 114 (39-117) U/L Troponin I High Sens 13.7 D (<3.5-17.0) ng/L Total Protein 8.5 H (6.5-8.0) g/dL Albumin 5.1 H (3.5-5.0) g/dL Lipase 76 (8-78) U/L Urine Color Yellow Urine Appearance Clear Urine pH 5.5 (5.0-9.0) Ur Specific Sigurd 1.015 (1.005-1.025) Urine Protein 30 (1+) H (Neg-Trace) mg/dL Urine Glucose (UA) Negative (Negative) mg/dL Urine Ketones Trace (Negative) mg/dL Urine Blood Small (1+) H (Negative) Urine Nitrite Negative (Negative) Ur Leukocyte Esterase Negative (Negative) Urine RBC 0-2 (0-2) /HPF Urine WBC 0-5 (0-5) /HPF Ur Squamous Epith Cells 3-5 (0-2) /HPF Urine Bacteria None Seen (None Seen) Hyaline Casts 3-5 (0-2) /LPF Independent Interpretation I performed an independent interpretation of an: CT Scan Interpretation: No obstructive bowel gas pattern, no hydronephrosis Radiology Impression Discussion of test interpretation with radiology: I have reviewed the radiologist's reading. External Record Review External record reviewed: Outpatient record and Prior outpatient labs Prescription Management I considered prescription management with: Pain Medication, Antibiotic and Other (Antiemetic) Chronic Conditions Patient?s care impacted by: Other (RA) Medications Administered Discontinued Medications Generic Name Dose Route Start Last Admin Trade Name Freq PRN Reason Stop Dose Admin Lactated Ringer's 1,000 mls @ 999 mls/hr 08/15/24 10:45 08/15/24 12:24 Lr IV 08/15/24 11:45 Infused .Q1H1M CHERI Infusion Lactated Ringer's 1,000 mls @ 999 mls/hr 08/15/24 12:30 08/15/24 15:01 Lr IV 08/15/24 13:30 Infused .Q1H1M CHERI Infusion Labetalol HCl 5 mg 08/15/24 11:15 08/15/24 11:38 Labetalol Hcl 100 Mg/20 Ml Vial IVPUSH 08/15/24 11:16 Not Given ONCE ONE Morphine Sulfate 4 mg 08/15/24 10:36 08/15/24 11:00 Morphine Sulfate 4 Mg/Ml Cartridge IVPUSH 08/15/24 10:37 4 mg ONCE ONE Administration Protocol Ondansetron HCl 4 mg 08/15/24 10:36 08/15/24 11:00 Ondansetron Hcl 4 Mg/2 Ml Vial IVPUSH 08/15/24 10:37 4 mg ONCE ONE Administration Critical Care Time Critical Care Time Critical Care Time: Yes Total Critical Care Time: 36 Attestation: I have personally provided critical care time exclusive of time spent on separately billable procedures. Time includes review of lab data, radiology results, bedside re-evaluation after 2 IV fluid boluses, and monitoring for potential decompensation. Intervention performed as documented. Discharge Plan Discharge Clinical Impression: KATHARINE (acute kidney injury), Gastroenteritis Patient Disposition: Home, Self-Care Instructions: Acute Kidney Injury (DC), Gastroenteritis (DC) Additional Instructions: your labs showed dehydration. labs improved after IV fluids you will need to continue to drink plenty of fluids at home - water and zhanna recommended Recommend getting repeat blood work in 1 week to ensure your kidney function has normalized. Your CT scan today was unremarkable. Stick to a bland diet like soup and toast while you are not feeling well. Take the prescribed medication as needed for nausea. Follow up with your doctor as needed. If you develop new or worsening symptoms call 911 or come back to the ER for further evaluation. Prescriptions: New ondansetron 4 mg tablet,disintegrating 4 mg PO Q8H PRN (Reason: nausea and vomiting) Qty: 7 0RF No Action clonidine HCl 0.1 mg tablet 0.1 mg PO BID clonidine HCl 0.1 mg tablet 0.1 mg PO BID amlodipine 5 mg tablet 5 mg PO DAILY citalopram 20 mg tablet 20 mg PO DAILY Combivent Respimat 20-100 mcg/actuation mist inhalation hydroxychloroquine [Plaquenil] 200 mg tablet 200 mg PO .COMPLEX 90 Days Qty: 180 1RF Rx Instructions: Take 1 tablets daily from Sunday to Sunday and 1 tablet twice a day Sunday and Sunday losartan 100 mg tablet 100 mg PO DAILY metoprolol tartrate 25 mg tablet 25 mg PO BID hydrochlorothiazide 25 mg tablet 25 mg PO DAILY calcium carbonate-vitamin D3 [Oyster Shell Calcium-Vit D3] 500 mg-5 mcg (200 unit) tablet 1 tab PO BID zolpidem 5 mg tablet 5 mg PO BEDTIME PRN (Reason: Insomnia) pravastatin 40 mg tablet 40 mg PO DAILY aripiprazole 5 mg tablet 5 mg PO DAILY isoniazid 300 mg tablet 300 mg PO DAILY 30 Days Qty: 30 5RF pyridoxine (vitamin B6) 50 mg tablet 50 mg PO DAILY 30 Days Qty: 30 5RF Referrals: Cristy Monet MD [Primary Care Provider] - Print Language: Bruneian
[2024-08-15] MEDS: Lactated Ringers 1,000 ML 999 ML IV ×2 (10:45→12:48)
[2024-08-15] MEDS: ondansetron HCL 4 MG/2 ML VIAL IVPUSH (11:00)
[2024-08-15] MEDS: Morphine Sulfate 4 MG/ML CARTRIDGE IVPUSH (11:00)
[2024-08-15 11:07] LABS: Lipase 76 U/L (8-78)
--- OUTSIDE RECORDS SUMMARY | 2024-08-15 11:53 | XMS_ITS | Clinical Summary ---
Author Organization [employer] Address [address] [facility] [address] [place] [address] Care Team Providers Care Jack Spooler Tender Name Role Phone Patrick Monet MD Primary Care Provider + Sung Rand PharmD Unavailable [phone] Allergies Active Allergy Reactions Criticality Noted Date Comments Jed Inhibitors Cough 05/26/2010 Pravastatin Muscle Pain Low 11/30/2023 11/30/2023 MTM patient reported that they self discontinued this medication due to muscle pain Medications zolpidem (Ambien) 5 MG tablet Take 5 mg by mouth if needed at bedtime. 08/05/19 23 Active albuterol 108 (90 Base) MCG/ACT inhaler Inhale 2 puffs every 6 (six) hours if needed for wheezing. 18 g 3 06/27/19 24 Active Umeclidinium [place] (Incruse Ellipta) 62.5 MCG/ACT aerosol powder Inhale 1 Inhalation Once per day. 1 each 11 09/17/19 24 Active Calcium Carb-Cholecalcif fred (Oyster Shell [...] mouth Once per day. 12/31/19 24 Active metoprolol tartrate (Lopressor) 25 MG tabletIndication s:HTN (hypertension), benign TAKE 1 TABLET BY MOUTH TWICE DAILY IN THE MORNING AND IN THE EVENING 180 tablet 2 05/30/19 25 Active omeprazole (PriLOSEC) [address] capsule TAKE 1 CAPSULE BY MOUTH TWICE DAILY IN THE MORNING AND IN THE EVENING BEFORE MEALS 60 capsule 1 07/16/19 25 Active amLODIPine (Norvasc) 5 MG tablet Take 1 tablet (5 mg) by mouth Once per day. 30 tablet 07/15/19 25 026 Active cloNIDine (Catapres) 0.1 MG tabletIndication s:Resistant hypertension TAKE 1 TABLET BY MOUTH nightly 30 tablet 07/15/19 25 Active aspirin 81 MG EC tablet Take 1 tablet (81 mg) by mouth Once per day. 30 tablet 07/15/19 25 026 Active citalopram (CeleXA) 20 MG tablet Take 1 tablet (20 mg) by mouth Once per day. 30 tablet 07/17/19 25 Active ARIPiprazole (Abilify) 5 MG tablet Take 1 tablet (5 mg) by mouth Once per day. 30 tablet 07/17/19 25 Active Blood Pressure Monitoring (Blood Pressure Cuff) misc Use daily as prescribed 1 each 07/17/19 25 Active losartan (Cozaar) 100 MG tablet TAKE 1 TABLET BY MOUTH EVERY MORNING 90 tablet 1 08/01/19 25 Active hydroCHLOROthiaz megan (HYDRODiuril) 25 MG tablet TAKE 1 TABLET BY MOUTH EVERY MORNING 90 tablet 1 08/01/19 25 Active hydroCHLOROthiaz megan (HYDRODiuril) 25 MG tablet TAKE 1 TABLET BY MOUTH EVERY MORNING 90 tablet 1 03/03/20 24 025 Discontinued losartan (Cozaar) 100 MG tablet TAKE 1 TABLET BY MOUTH EVERY MORNING 90 tablet 1 03/03/20 24 025 Discontinued sucralfate (Carafate) 1 GM/10ML suspension Take 10 mL (1 g) by mouth 4 times daily. 1200 mL 07/10/19 25 025 Active Problems Problem Noted Date Diagnosed Date Leg edema, right 07/14/2024 Assessment & Plan (07/14/2024 1:00 PM EDT): Order DVT ultrasound AZALIA II (cervical intraepithelial neoplasia II) 0 07/14/2024 Assessment & Plan (07/14/2024 1:07 PM EDT): S/p LEEP biopsy earlier this year, borders were negative Follow-up with WIRE COMMUNICATIONS ENGINEER in 6 months Memory impairment 07/14/2024 Assessment & Plan (07/14/2024 1:05 PM EDT): I discussed with Delilah and her daughter that given her multiple risk factors including smoking, THC use, hypertension and hyperlipidemia, she is at high risk for microvascular changes. Recent CT scan of the brain did not show significant microvascular changes, but may be seen on an MRI, however knowing that she had ACS at some point and has been ED and some of the risk factors continue to be active (HTN and recently quit smoking), is very likely that she is a very high risk patient. Restart aspirin 81 mg and refer to neurologist Optimize hypertension control Congratulated him for quitting smoking and encouraged her to quit THC use. LDL goal will be 70. Protein-calorie malnutrition, unspecified severi ty 02/18/2024 SVT (supraventricular tachycardia) 01/04/2024 Assessment & Plan (01/15/2024 12:41 PM EST): Stable managed with beta cayla Substance abuse 01/04/2024 Positive TB test 01/04/2024 Migraine 01/04/2024 Joint pain in both hands 01/04/2024 Bilateral hand swelling 01/04/2024 Resistant hypertension 01/04/2024 Assessment & Plan (07/14/2024 1:07 PM EDT): Add amlodipine 5 mg and follow-up with me in 3 to 4 weeks. Continue losartan, HCTZ, metoprolol 25 mg twice daily Will check regarding referral to engineer conductor due to resistant hypertension ([address] Meeks earlier this year) I congratulated her to quit smoking, she declined use of nicotine replacement therapy Advised to avoid alcohol or any other recreational substances Continue clonidine nightly only to avoid rebound hypertension Assessment & Plan (01/04/2024 3:11 PM EDT): [...] to make appointment with dental clinic [facility] Renal cyst 01/13/2023 Overview (01/13/2023): CT scan abd/pelvis 01/09/23= Benign Assessment & Plan (01/13/2023 9:09 AM EST): Right lower lobe, benign features No need for addtl FU Hepatic cyst 01/13/2023 Overview (01/13/2023): CT scan abd/pelvis 01/09/23= Benign Assessment & Plan (01/13/2023 9:08 AM EST): Benign features No need for addtl FU Encounter for cervical Pap smear with pelvic [...] breast 07/05/2022 Blurring of visual image 07/05/2022 History of non-ST elevation myocardial infarctio n (NSTEMI) 07/05/2022 Peripheral arterial occlusive disease 12/02/2012 Assessment & Plan (01/15/2024 12:41 PM EST): Stable, denies active claudication Seronegative rheumatoid arthritis 10/07/2012 Overview (01/04/2024): She has no hemoptysis and no weight loss or lymphadenopathy She had prior positive TB test and then negative per Dr Barth. She has never been treated. Assessment & Plan (07/14/2024 12:59 PM EDT): >>ASSESSMENT AND PLAN FOR INFLAMMATORY ARTHRITIS WRITTEN ON 01/15/2024 12:41 PM BY GINETTE LEE, Assessment & Plan (07/14/2024 12:57 PM EDT): On Plaquenil and symptoms seems to be better controlled, seen by nuclear waste management engineer Assessment & Plan (06/27/2023 10:39 AM EDT): - seen by rheumatology, reminded her to get labs done today and f/u with nuclear waste management engineer Assessment & Plan (06/27/2023 9:57 AM EDT): [...] asymptomatic I will refer to rheumatology in [facility] to improve compliance w/ appointment Assessment & Plan (08/07/2022 11:14 AM EDT): She is not taking any medicaitons at this time, check with pharmacy last time she was on MTX was 2 years ago. Order labs and FU with me in 1 month. Cigarette nicotine dependence without complicati on 05/01/2012 Assessment & Plan (07/14/2024 12:57 PM EDT): She has been 1 week without smoking cigarettes, I encouraged her to continue in the long-term and advised to use nicotine replacement therapy if needed, she will call as needed Assessment & Plan (09/17/2023 10:09 AM EDT): [...] 1 month Backache 03/15/2011 Weight decreased 03/15/2011 Resolved Problems Problem Noted Date Diagnosed Date Resolved Date Smoker unmotivated to quit 01/04/2024 0 07/14/2024 Acute hyperkalemia 01/04/2024 Hordeolum externum of left upper eyelid 09/17/2023 08/12/2024 Assessment & Plan (09/17/2023 10:01 AM EDT): - advised to apply dry heat to affected eyelid or chamomile tea bags - avoid scrubbing of the eyelid - re consult PRN Impacted cerumen of right ear 06/27/2023 08/12/2024 Assessment & Plan (09/17/2023 10:10 AM EDT): - she will schedule RN visit for ear lavage - use peroxide ear drops one week prior to appointment Assessment & Plan (06/27/2023 10:40 AM EDT): - needs to come for ear lavage with RN - prescription for peroxide otic solution to use prior to ear lavage Lower abdominal pain 01/13/2023 025 Enteritis 01/13/2023 08/12/2024 Assessment & Plan (01/13/2023 9:49 AM EST): Resolved, most likely viral. Encouraged adequate hydration, tolerates regular diet. Refer for colonoscopy, last one was more than 10y ago. She agreed with POC FU w me in 2-3m ASCUS of cervix with negative high risk HPV 09/28/2022 07/14/2024 Assessment & Plan (10/18/2023 2:19 PM EDT): [...] with pt, repeat Pap smear next year Allergic rhinitis 07/05/2022 08/12/2024 Acute headache 07/05/2022 08/12/2024 Acute diarrhea 07/05/2022 08/12/2024 Sinusitis 07/05/2022 08/12/2024 Encounters Date Type Department Care Team Description 08/15/2024 Orders Only GENERIC EXTERNAL DATA DEPARTMENT Provider, Generic External Data 08/13/2024 Patient Outreach [facility] [address] [place] [phone] Patrick Monet MD Pre-visit Planning (SDOH screening negative and tobacco screening negative) 08/06/2024 Telephone [facility] [address] [place] [phone] Patrick Monet MD 08/05/[address] [phone] Patrick Monet MD Referral 07/31/[address] [address] Patrick Monet MD 07/18/2024 Telephone [facility] [address] [place] [phone] Patrick Monet MD 07/16/2024 3:20 PM EDT Office Visit [facility] [address] [place] [phone] Garrison Cannon MD HTN (hypertension), benign (Primary Dx) 07/16/2024 Telephone [facility] [address] [place] [phone] Garrison Cannon MD 07/16/[address] [phone] Patrick Monet MD Nurse Triage 07/15/2024 1:30 PM EDT Clinical Support [address] [address] Katherine Zambrano, ANASTASIA Impacted cerumen of right ear 07/15/2024 Travel 07/14/2024 11:30 AM EDT Office Visit [facility] [address] [place] [phone] Patrick Monet MD Resistant hypertension (Primary Dx); Leg edema, right; Memory impairment; Cigarette nicotine dependence without complication; Seronegative rheumatoid arthritis ([facility]); AZALIA II (cervical intraepithelial neoplasia II) 07/14/2024 Telephone [facility] [address] [place] [phone] Patrick Monet MD 07/14/2024 Travel 07/14/2024 Refill [facility] [address] [place] [phone] Patrick Monet MD Resistant hypertension 07/11/2024 Telephone [facility] [address] [place] [phone] Patrick Monet MD Chart prep 07/10/2024 Telephone [facility] [address] [place] [phone] Patrick Monet MD Nurse Triage 07/09/2024 10:00 AM EDT Office Visit [facility] [address] [address] Garrison Cannon MD Epigastric pain (Primary Dx); Burning chest pain; HTN (hypertension), benign; Impacted cerumen of left ear 07/09/2024 Orders Only GENERIC EXTERNAL DATA DEPARTMENT Provider, Generic External Data 07/08/2024 Telephone [facility] [address] [place] [phone] Patrick Monet MD Nurse Triage 07/01/2024 Orders Only [facility] External Provider, [facility] 06/30/2024 7:00 PM EDT Office Visit [facility] [address] [phone] Ravi Akbar MD HTN (hypertension), benign (Primary Dx); Alcohol use 06/30/2024 Travel 06/19/2024 Orders Only GENERIC EXTERNAL DATA DEPARTMENT Provider, Generic External Data 06/10/2024 Refill [facility] [address] [place] [phone] Patrick Monet MD Resistant hypertension 06/09/2024 Orders Only [facility] [address] [place] [address] ProviderIda MD 05/29/2024 Refill [facility] [address] [place] [address] Patrick Monet MD HTN (hypertension), benign 05/20/2024 Travel from Last 3 Months Immunizations Immunization Administration Dates Next Due Hep B, adult [...] housing situation today? I have poolthomas gomez 08/13/[address] you li ve. Do you have problems with any of the following? None of the above 08/13/2024 Food Insecurity Answer Date Recorded Within the past 12 months, y ou worried that your food would run out before you got money to buy more: Never True 08/13/2024 Within the past 12 months,th e food you bought just didn't last and you didn't have enough money to get more: Never True 01/2025 Transportation Answer Date Recorded In the past 12 months, has l ack of transportation kept you from medical appts, meetings, work or from getting things needed for daily living? No 08/13/2024 Utilities Answer Date Recorded In the past 12 months, has t he electric, gas, oil or water company threatened to shut off services in your home? No 08/13/2024 Depression Answer Date Recorded Patient Health Questionnaire-2 Score 0 09/17/2023 Internet Access Answer Date Recorded Internet Access Q1 Yes 08/13/2024 Internet Access Q2 Not on file 08/13/2024 Comments No Sex and Gender Information Value Date Recorded Sex Assigned at Female 01/02/2022 10:18 AM EDT Legal Sex Female 10:18 AM EDT Gender Identity Female 01/02/2022 10:18 AM EDT Sexual Orientation Straight 01/02/2022 10 :18 AM EDT Last Filed Vital Signs Vital Sign Reading Time Taken Comments Blood Pressure 122/66 07/16/2024 11:43 AM EDT Pulse 53 07/16/2024 11:31 AM EDT Temperature 35.8 ??C (96.5 ??F) 07/16/2024 11:31 AM E DT Respiratory Rate 16 07/16/2024 11:43 AM EDT Oxygen Saturation 97% 07/16/2024 11:31 AM EDT Inhaled Oxygen Concentration - - Weight 53.1 kg (117 lb 2 oz) 07/14/2024 11:29 AM EDT Height 160 cm (5' 3 ) 07/14/2024 11:29 AM EDT Body Mass Index 20.75 07/14/2024 11:29 AM EDT Plan of Treatment Upcoming Encounters Date Type Department Care Team (Late st Contact Info) Description 08/22/2024 10:30 AM EDT Office Visit [facility] [address] [place] [address] Patrick Monet MD [address] [place] [address] Health Maintenance Due Date Last Done Comments [...] Vaccine (3 - season) 2023 01/04/2021, 12/14/2020 Depression Screening 09/16/2024 09/17/2023, 09/17/19 24 Diagnostic Breast Imaging 10/13/20242024, 10/10/2023, 07/07/2022 HPV/Cotest 10/17/2024 10/18/2023, 08/07/2022 Pap Smear 10/30/2024 10/18/2023, 06/07/2022, 08/07/2022, Additional history exists Influenza Vaccine (Season Ended) 2024 03/15/2023, 01/12/2020, 11/21/2018, Additional history exists Tobacco Screening 07/16/2025 07/16/2024 SDOH Screening 08/13/2025 08/13/2024 Lipid Panel 12/18/2028 12/19/2023, 0704/2022, 05/04/2021 Colonoscopy [...] patient's age to complete this topic Meningococcal B Vaccine Aged Out No l onger eligible based on patient's age to complete [...] Procedure Name Priority Date/Time Associated Diagnosis Comments LIPASE Routine 08/15/2024 9:42 AM EDT HIGH SENSITIVITY TROPONIN I Routine 08/15/2024 9:42 AM EDT BASIC METABOLIC PANEL Routine 08/15/2024 9:42 AM EDT HEPATIC FUNCTION PANEL Routine 9:42 AM EDT CBC WITH AUTO DIFFERENTIAL Routine 08/15/2024 9:42 AM EDT ECG 12-LEAD Routine 07/16/2024 4:39 PM EDT HTN (hypertension), benign DE REMOVAL IMPACTED CERUMEN IRRIGATION/LVG UNILAT Routine 07/15/2024 1:41 PM EDT Impacted cerumen of right ear ECG 12-LEAD Routine 07/09/2024 1:48 PM EDT [...] Routine 06/19/2024 12:02 PM EDT SM AND SM/CAR BODY INSPECTOR ANTIBODIES Routine 06/19/2024 12:02 PM EDT SJOGREN'S ANTIBODIES (SS-A,SS-B) Routine 06/19/2024 12:02 PM EDT PATRICK SCREEN, IFA, W/REFL TITER AND PATTERN Routine 06/19/2024 12:02 PM EDT [id number] I ANTIBODIES (IGG, IGA, IGM) Routine 06/19/2024 [...] URINALYSIS, COMPLETE Routine 06/19/2024 12:00 PM EDT BI MAMMOGRAM DIAGNOSTIC TOMOSYNTHESIS BILATERAL Routine 04/15/2024 10:00 AM EST HM COLONOSCOPY Routine 12/25/2023 LIPID PANEL, STANDARD Routine 12/19/2023 9:22 AM EDT HEPATITIS PANEL, GENERAL Routine 12/04/2023 9:36 AM EDT Encounter for preventive health examination THINPREP?? IMAGING PAP REFL HPV MRNA(IF ASCUS,ASC-H,LSIL) Routine 10/18/2023 10:43 AM EDT from Last 3 Months or Most Recently Relevant to Health Maintenance Results * High Sensitivity Troponin I (08/15/2024 9:42 AM EDT) Only the most recent of3 resultswithin the time period is included. TROPONIN I HIGH SENSITIVITY 13.7 <3.5 - 17.0 ng/L [facility] Comment:The Cade high sens itivity Troponin-I results should beused in conjunction with other diagnostic information suchas ECG, clinical observations and information, and patientsymptoms to aid in the diagnosis of RI. 08/15/2024 9:42 AM EDT 08/15/2024 9:45 AM EDT us Generic External Data Provider LAB BLOOD ORDERAB LES Final Result [facility] [address] [place] [address] [phone] * (ABNORMAL) CBC auto differential (08/15/2024 9:42 AM EDT) Only the most recent of4 resultswithin the time period is included. White Blood Count 14.0(H) 4.8 - 10.8 X10*3/uL [facility] Red Blood Count 4.71 4.20 - 5.50 X10*6/uL [facility] Hemoglobin 14.9 12.0 - 16.0 g/dl [facility] Hematocrit 42.1 37.0 - 47.0 % [facility] Mean Corpuscular Volume 89.4 80.0 - 98.0 fL [facility] Mean Corpuscular Hemoglobin 31.6 27.0 - 33.0 pg [facility] Mean Corpuscular HGB Conc 35.4(H) 31.0 - 35.0 g/dl [facility] Red Cell Distribution Width 12.1 11.0 - 16.0 % [facility] Platelet Count 346 160 - 400 X10*3/uL [facility] Mean Platelet Volume 8.6(L) 9.4 - 12.3 fL [facility] Neutrophils Percent Auto 75.0(H) 45 - 73 % [facility] Imm Gran Pct Auto 0.3 0.0 - 0.4 % [facility] Lymphocytes Percent Auto 15.6(L) 20 - 40 % [facility] Monocytes Percent Auto 8.7 2 - 11 % [facility] Eosinophils Percent Auto 0.0 0 - 4 % [facility] Basophils Percent Auto 0.4 0 - 2 % [facility] NRBC Pct Auto 0.0 0.0 - 0.2 /100WBC [facility] Neutrophils Absolute Auto 10.5(H) 2.0 - 8.3 x10*3/uL [facility] Imm Gran Abs Auto 0.04(H) 0.00 - 0.03 X10*3/uL [facility] Lymphocytes Absolute Auto 2.2 1.2 - 4.9 X10*3/uL [facility] Monocytes Absolute Auto 1.2 0.1 - 1.2 X10*3/uL [facility] Eosinophils Absolute Auto 0.0 0.0 - 0.4 X10*3/uL [facility] Basophils Absolute Auto 0.1 0.0 - 0.2 X10*3/uL [facility] NRBC Abs Auto 0.000 0.0 - 0.012 X10*3/uL [facility] 08/15/2024 9:42 AM EDT 08/15/2024 9:45 AM EDT Generic External Data Provider LAB BLOOD ORDERAB LES Final Result Performing Organization Address City/[facility]/ZIP Co de Phone Number [facility] [address] [place] [address] [phone] * Lipase (08/15/2024 9:42 AM EDT) Lipase 76 8 - 78 U/L [facility] 08/15/2024 9:42 AM EDT 08/15/2024 9:45 AM EDT Generic External Data Provider LAB BLOOD ORDERAB LES Final Result Performing Organization Address [facility] Co de Phone Number [facility] [address] [place] [phone] * (ABNORMAL) Hepatic Function Panel (08/15/2024 9:42 AM EDT) Only the most recent of2 resultswithin the time period is included. Bilirubin, Total 0.9 0.0 - 1.0 mg/dL [facility] Bilirubin, Direct 0.3 0.0 - 0.5 mg/dL [facility] Aspartate Amino Transferase 40(H) 5 - 31 U/L [facility] Alanine Aminotransferase 29 0 - 31 U/L [facility] Total Protein 8.5(H) 6.5 - 8.0 g/dL [facility] Albumin Level 5.1(H) 3.5 - 5.0 g/dL [facility] Alkaline Phosphatase 114 39 - 117 U/L [facility] 08/15/2024 9:42 AM EDT 08/15/2024 9:45 AM EDT us Generic External Data Provider LAB BLOOD ORDERAB LES Final Result [facility] [address] [place] [address] [phone] * (ABNORMAL) Basic Metabolic Panel (08/15/2024 9:42 AM EDT) Only the most recent of2 resultswithin the time period is included. Sodium 134(L) 135 - 145 mmol/L [facility] Potassium 3.6 3.3 - 5.1 mmol/L [facility] Chloride 94(L) 96 - 108 mmol/L [facility] Carbon Dioxide 26 22 - 29 mmol/L [facility] Anion Gap 18 12 - 20 [facility] Urea Nitrogen (BUN) 49(H) 9 - 16 mg/dL [facility] Creatinine, Serum 2.53(H) 0.5 - 1.4 mg/dL [facility] Creatinine Clr Calc Pharmacy 18.0 [facility] Comment:Provided height and weight: 160.02 cm,57.606 kg.eGFR (calculated from the MDRD study equation) and eCrCl(calculated from the Cockcroft-Gault equation) are based ondifferent parameters and may not yield comparable results.If eCrCl result is absurd, please check patient'sheight/weight. Estimated Glomerular Filt Rate 19 [facility] Comment:Chronic Kidney Disea se: Estimated GFR < 60 mL/min/[id number] Kidney Disease: Estimated GFR < 15 mL/min/1.73m2 Glucose 128(H) 60 - 115 mg/dL [facility] Calcium 9.8 8.4 - 10.2 mg/dL [facility] 08/15/2024 9:42 AM EDT 08/15/2024 9:45 AM EDT us Generic External Data Provider LAB BLOOD ORDERAB LES Final Result [facility] [address] [place] [address] [phone] * DE REMOVAL IMPACTED CERUMEN IRRIGATION/LVG UNILAT (07/15/2024 1:41 PM EDT) Narrative Katherine Zambrano RN - 07/15/2024 1:41 PM EDT Katherine Zambrano RN ? 07/15/2024 ??1:45 PM Ear Cerumen Removal Date/Time: 07/15/2024 1:41 PM Performed by: Katherine Zambrano RN Authorized by: Patrick Monet MD ?? Consent: ??Consent obtained: ??Verbal ??Consent given by: ??Patient ??Risks, benefits, and alternatives were discussed: yes ?Risks discussed: ??Bleeding, infection, pain, dizziness, incomplete removal and TM perforation ??Alternatives discussed: ??Referral (ENT) [place] protocol: ??Procedure explained and questions answered to patient or proxy's satisfaction: yes ?Relevant documents present and verified: OV note from 07/09/24. ?Required blood products, implants, devices, and special equipment available: yes (Curette) ?Site/side marked: yes (L ear) ?Immediately prior to procedure, a time out was called: yes ?Patient identity confirmed: ??Verbally with patient Procedure details: ??Location: ??L ear ??Procedure type: irrigation ?Procedure outcomes: unable to remove cerumen ?? Post-procedure details: ??Inspection: ??Some cerumen remaining ??Hearing quality: ??Diminished ??Procedure completion: ??Procedure terminated at patient's request Comments: ?? Patient did not use debrox drops as Rx'd on 07/09/24. Patient reports she was not aware of debrox drops being prescribed. Cerumen visible in L ear canal however cerumen appears to be hardened and RN was unable to remove is irrigation or with curette. RN called [facility] pharmacy who confirms debrox drops are currently awaiting p/u from 07/09/24. RN advised patient to go to [facility] pharmacy to p/u debrox drops and to return in 1 week on 07/23/24 to re-attempt of ear lavage. Patient agreed to this POC. us Patrick Monet MD IN CLINIC/BEDSIDE ORDERA BLES Final Result * (ABNORMAL) Comprehensive Metabolic Panel (07/01/2024 9:16 AM EDT) Only the most recent of2 resultswithin the time period is included. Sodium 133(L) 135 - 145 mmol/L [facility] Potassium 5.0 3.3 - 5.1 mmol/L [facility] Comment:Slight Hemolysis.Int erpret result with caution. Chloride 97 96 - 108 mmol/L [facility] Carbon Dioxide 25 22 - 29 mmol/L [facility] Anion Gap 16 12 - 20 [facility] Urea Nitrogen (BUN) 15 9 - 16 mg/dL [facility] Creatinine, Serum 0.81 0.5 - 1.4 mg/dL [facility] Creatinine Clr Calc Pharmacy 56.4 [facility] Comment:Provided height and weight: 160.02 cm,52.4 kg.eGFR (calculated from the MDRD study equation) and eCrCl(calculated from the Cockcroft-Gault equation) are based ondifferent parameters and may not yield comparable results.If eCrCl result is absurd, please check patient'sheight/weight. Estimated Glomerular Filt Rate >60 [facility] Comment:Chronic Kidney Disea se: Estimated GFR < 60 mL/min/1.34r0Ekdoox Kidney Disease: Estimated GFR < 15 mL/min/1.73m2 Glucose 100 60 - 115 mg/dL [facility] Calcium 9.7 8.4 - 10.2 mg/dL [facility] Bilirubin, Total 0.8 0.0 - 1.0 mg/dL [facility] Aspartate Amino Transferase 42(H) 5 - 31 U/L [facility] Comment:Slight Hemolysis.Int erpret result with caution. Alanine Aminotransferase 20 0 - 31 U/L [facility] Total Protein 7.7 6.5 - 8.0 g/dL [facility] Albumin Level 4.5 3.5 - 5.0 g/dL [facility] Alkaline Phosphatase 118(H) 39 - 117 U/L [facility] 07/01/2024 9:16 AM EDT 07/01/2024 9:17 AM EDT us Generic External Data Provider LAB BLOOD ORDERAB LES Final Result [facility] [address] [place] [phone] * CT Head w/o Contrast (07/01/2024 8:55 AM EDT) Anatomical Region Laterality Modality Head, Neck Computed Tomogra phy 07/01/2024 8:55 AM EDT Narrative 07/01/2024 9:20 AM EDT ? [facility] ?[address] ?[place] [address] ? CT Scan Report ? Signed ? Patient: Roel,Delilah ?MR#: [id number] ?? 39 ? : 1955 ?Acct:[id number] ? Age/Sex: 68 / F ?ADM Date: 07/01/24 ? Loc: HO.ED ? Attending Dr: ? Ordering Physician: Jhon Ramirez MD ?? Date of Service: 07/01/24 ?? Procedure(s): CT head/brain wo IV con ?? Accession Number(s): [id number] ? cc: Patrick Monet MD; Jhon Ramirez MD ? Report Number: ?? [id number]: Total DLP = ??548.00 mGy-cm ?? EXAMINATION: [...] 09:17 AM EDT RP ? Dictated By: ?Graeme Castillo MD ? Signed By: ?<Electronically signed by Graeme Castillo MD in OV> ?07/01/24 0917 ? DD/ 0855 ? TD/TT: 07/01/24 0910 ? Manager Environmental Health: MSM ? Procedure Note Shashi Buckner - 07/01/[address] [place] [address] [address] Scan Report Signed Patient: Delilah Sevilla#: [id number] 39 : 8Acct:[id number] Age/Sex: 68 / FADM Date: 07/01/24 Loc: HO.ED Attending Dr: Ordering Physician: Jhon Ramirez MD Date of Service: 07/01/24 Procedure(s): CT head/brain wo IV con Accession Number(s): [id number] cc: Patrick Monet MD; Jhon Ramirez MD Report Number: [id number]: Total DLP = 548.00 mGy-cm EXAMINATION: CT [...] signed by Graeme Castillo MD in OV> 07/01/24 0917 DD/ 0855 TD/TT: 07/01/24 0910 Manager Environmental Health: ELZBIETA [facility] External Provider IMG CT PROCEDURES Final Result * Ucqw-2-Fqdxravhoxwi I Antibodies (IgG, IgA, IgM) (06/19/2024 12:02 PM EDT) B2 Glycoprotein I IgG Antibody <2.0 <20.0 U/mL [facility] Comment:Value Interpretation ----- < 20.0 Antibody not detected> or = 20.0 Antibody detected B2 Glycoprotein I IgM Antibody <2.0 <20.0 U/mL [facility] Comment:Value Interpretation ----- < 20.0 Antibody not detected> or = 20.0 Antibody detected B2 Glycoprotein I IgA Antibody <2.0 <20.0 U/mL [facility] Comment: Value ?Interpretation----- ? < 20.0 ? Antibody not detected> or = 20.0 ?Antibody detectedThe antiphospholipid antibody syndrome (APS) is aclinical-pathologic correlation that includes aclinical event (e.g. arterial or venous thrombosis, morbidity) and persistent positiveantiphospholipid antibodies (IgM, IgG Cardiolipin ujg9YIM antibodies greater than the 99th percentile;or a [...] therapy or aging.For additional information, please refer tohttp://education.RackHunt/faq/UDX759(This link is being provided for informational/educational purposes only.)THIS TEST WAS PERFORMED AT:[facility]/[id number] [place], [place] ??[address]CKXJOAY W. MASON,MD,PHD 06/19/2024 12:0 2 PM EDT 06/19/2024 12:02 PM EDT Generic External Data Provider LAB BLOOD ORDERAB LES Final Result [facility] [address] [place] [address] [phone] * Sm and Sm/CAR BODY INSPECTOR Antibodies (06/19/2024 12:02 PM EDT) SM Antibody <1.0 NEG <1.0 NEG [facility] SM/CAR BODY INSPECTOR Antibody <1.0 NEG <1.0 NEG [facility] Comment:THIS TEST WAS PERFOR MED AT:[facility] [address] [address]DIFMZHARLEY MEDINA MD 06/19/2024 12:0 2 PM EDT 06/19/2024 12:02 PM EDT Generic External Data Provider LAB BLOOD ORDERAB LES Final Result Performing Organization Address [facility] Co de Phone Number [facility] [address] [place] [address] [phone] * Sjogren's Antibodies (SS-A,SS-B) (06/19/2024 12:02 PM EDT) Sjogren's Antibody (SS-A) <1.0 NEG <1.0 NEG [facility] Sjogren's Antibody (SS-B) <1.0 NEG <1.0 NEG [facility] Comment:THIS TEST WAS PERFOR MED AT:[facility] [address] [phone] MEDINA MD 06/19/2024 12:0 2 PM EDT 06/19/2024 12:02 PM EDT Generic External Data Provider LAB BLOOD ORDERAB LES Final Result Performing Organization Address [facility] de Phone Number [facility] [address] [place] [phone] * SCL-70 Antibody (06/19/2024 12:02 PM EDT) SCL-70 Antibody <1.0 NEG <1.0 NEG [facility] Comment:THIS TEST WAS PERFOR MED AT:[facility] [address] [place] [address]WBRXNJONES MEDINA MD 06/19/2024 12:0 2 PM EDT 06/19/2024 12:02 PM EDT us Generic External Data Provider LAB BLOOD ORDERAB LES Final Result Performing Organization Address City/[facility]/ZIP Co de Phone Number [facility] [address] [place] [phone] * DNA (ds) Antibody (06/19/2024 12:02 PM EDT) Anti DNA DS Antibody <1 IU/mL [facility] Comment:IU/mL Interpretation < or = 4 Negative 5-9 Indeterminate > or = 10 PositiveTHIS TEST WAS PERFORMED AT:[facility] [address] [address]RCVCMJONES MEDINA MD 06/19/2024 12:0 2 PM EDT 06/19/2024 12:02 PM EDT us Generic External Data Provider LAB BLOOD ORDERAB LES Final Result [facility] [address] [place] [address] [phone] * (ABNORMAL) Lupus Anticoagulant Evaluation with Reflex (06/19/2024 12:02 PM EDT) Pathologist [facility] Lupus Interpretation see note [facility] Comment:A Lupus Anticoagulan t is not detected.Common causes for a prolonged screen and negativeconfirmatory test include factor deficiencies oranticoagulant therapy.Reference Range: Not DetectedFor additional information, please refer tohttp://education.RackHunt/faq/AUO68a5(This link is being provided for informational/educational purposes only.)This interpretation is based on the following testresults. PTT (LAC) Screen 44(A) <=40 sec [facility] DRVVT Screen 39 <=45 sec [facility] dRVVT Confirmation TNP [facility] dRVVT 1:1 Mix TNP [facility] DRVVT 1:1 Mix Interpretation TNP [facility] Hexagonal Phase Neutralization Negative Negative [facility] Comment:THIS TEST WAS PERFOR MED AT:[id number] [place] [address]WSQOXHUCATHERINE LUA MD,PHD Thrombin Clotting Time TNP [facility] 06/19/2024 12:0 2 PM EDT 06/19/2024 12:02 PM EDT us Generic External Data Provider LAB BLOOD ORDERAB LES Final Result [facility] [address] [place] [address] [phone] * Cardiolipin Antibodies (IgA,IgG,IgM) (06/19/2024 12:02 PM EDT) Cardiolipin Antibody (IgG) <2.0 GPL-U/mL [facility] Comment:Value Interpretation ----- < 20.0 Antibody not detected> or = 20.0 Antibody detected Cardiolipin Antibody (IgM) <2.0 MPL-U/mL [facility] Comment: Value ?Interpretation----- ? < 20.0 ? Antibody not detected> or = 20.0 ?Antibody detectedThe antiphospholipid antibody syndrome (APS) is aclinical-pathologic correlation that includes aclinical event (e.g. arterial or venous thrombosis, morbidity) and persistent positiveantiphospholipid antibodies (IgM, IgG Cardiolipin fdi8PHS antibodies greater than the 99th percentile; ora [...] therapy or aging.For additional information, please refer tohttp://education.RackHunt/faq/PYW665(This link is being provided for informational/educational purposes only.)THIS TEST WAS PERFORMED AT:[facility] [place] [address], [place] ??[address]JONES MEDINA MD 06/19/2024 12:0 2 PM EDT 06/19/2024 12:02 PM EDT Generic External Data Provider LAB BLOOD ORDERAB LES Final Result Performing Organization Address City/[facility]/ZIP Co de Phone Number [facility] [address] [place] [phone] * Sed Rate by Modified Westergren (06/19/2024 12:02 PM EDT) Pathologist [facility] Erythrocyte Sedimentation Rate 14 0 - 20 MM/HR [facility] Comment:Patients with polycy themia and many hemoglobin abnormalitiesmay have depressed sed rates whereas patients with anemiamay have elevated sed rates. 06/19/2024 12:0 2 PM EDT 06/19/2024 12:02 PM EDT Generic External Data Provider LAB BLOOD ORDERAB LES Final Result Performing Organization Address [facility] Co de Phone Number [facility] [address] [place] [phone] * Complement Component C3c (06/19/2024 12:02 PM EDT) Pathologist [facility] Complement C3 114 83 - 193 mg/dL [facility] Comment:THIS TEST WAS PERFOR MED AT:[facility] [address] [address]YOYRMJONES MEDINA MD 06/19/2024 12:0 2 PM EDT 06/19/2024 12:02 PM EDT us Generic External Data Provider LAB BLOOD ORDERAB LES Final Result Performing Organization Address [facility]/ZIP Co de Phone Number [facility] [address] [place] [phone] * Complement Component C4c (06/19/2024 12:02 PM EDT) Complement C4 23 15 - 57 mg/dL [facility] Comment:THIS TEST WAS PERFOR MED AT:[facility] [place] [address]LTPAWJONES MEDINA MD 06/19/2024 12:0 2 PM EDT 06/19/2024 12:02 PM EDT Generic External Data Provider LAB BLOOD ORDERAB LES Final Result Performing Organization Address [facility]/ZIP Co de Phone Number [facility] [address] [place] [phone] * C-reactive Protein (06/19/2024 12:02 PM EDT) Pathologist [facility] C Reactive Protein 0.10 < or = 0.50 mg/dL [facility] 06/19/2024 12:0 2 PM EDT 06/19/2024 12:02 PM EDT [employer] External Data Provider LAB BLOOD ORDERAB LES Final Result Performing Organization Address [facility] Co de Phone Number [facility] [address] [place] [phone] * (ABNORMAL) PATRICK Screen,IFA, with Reflex to Titer and Pattern (06/19/2024 12:02 PM EDT) Pathologist [facility] Anti Nuclear Antibody Screen POSITIVE (A) NEGATIVE [facility] Comment:PATRICK IFA is a first l ine screen for detecting thepresence of up to approximately 150 autoantibodies invarious autoimmune diseases. A positive PATRICK IFA resultis suggestive of autoimmune disease and reflexes totiter and pattern. Further laboratory testing may beconsidered if clinically indicated.For additional information, please refer tohttp://education.CleanMyCRM/faq/MJU898(This link is being provided for informational/educational purposes only.) PATRICK Titer 1:80(A) titer [facility] Comment:A low level PATRICK tite r may be present in pre-clinicalautoimmune diseases and normal individuals. Reference Range <1:40 Negative 1:40-1:80 Low Antibody Level >1:80 Elevated Antibody Level PATRICK Pattern Nuclear, Speckled (A) [facility] Comment:Speckled pattern is associated with mixed connectivetissue disease (MCTD), systemic lupus erythematosus(SLE), Sjogren's syndrome, dermatomyositis, andsystemic sclerosis/polymyositis overlap.AC-2,4,5,29: SpeckledInternational Consensus on PATRICK Patterns(https://doi.org/10.1515/ndse-8922-1768)THIS TEST WAS PERFORMED AT:[facility] [place] [phone] MEDINA MD PATRICK TITER 2 (REF LAB) [facility] PATRICK Pattern 2 [facility] PATRICK TITER 3 [facility] PATRICK PATTERN 3 [facility] 06/19/2024 12:0 2 PM EDT 06/19/2024 12:02 PM EDT us Generic External Data Provider LAB BLOOD ORDERAB LES Final Result Performing Organization Address [facility] Co de Phone Number [facility] [address] [place] [phone] * Protein Creatinine Ratio, Urine (06/19/2024 12:00 PM EDT) Creatinine, Urine 91.68 mg/dL [facility] Protein, Total, Random Urine 10 <12 mg/dL [facility] Protein/Creatin ine Ratio, Ur 0.11 <0.2 [facility] Comment:The spot urine prote in:creatinine ratio may increase to 0.3during normal . 06/19/2024 12:0 0 PM EDT 06/19/2024 1:25 PM EDT us Generic External Data Provider LAB URINE ORDERAB LES Final Result Performing Organization Address [facility]/ZIP Co de Phone Number [facility] [address] [place] [phone] * (ABNORMAL) Urinalysis Complete (06/19/2024 12:00 PM EDT) Color Urine Yellow [facility] Appearance Urine Clear [facility] PH 5.5 5.0 - 9.0 [facility] Glucose Urine UA Negative Negative mg/dL [facility] Urine Blood Trace(A) Negative [facility] Specific Strong - Urine 1.015 1.005 - 1.025 [facility] Urine Protein Negative Neg-Trace mg/dL [facility] Urine Ketones Negative Negative mg/dL [facility] Nitrite Urine Negative Negative [facility] Leukocyte Esterase Urine Negative Negative [facility] RBC Urine 3-5(A) 0 - 2 /HPF [facility] Urine WBC 0-5 0 - 5 /HPF [facility] Urine Squamous Epithelial Cell 6-10 0 - 2 /HPF [facility] Urine Bacteria 2+ None Seen [facility] Hyaline Casts, Urine 0-2 0 - 2 /LPF [facility] 06/19/2024 12:0 0 PM EDT 06/19/2024 1:25 PM EDT us Generic External Data Provider LAB URINE ORDERAB LES Final Result Performing Organization Address City/State/[facility] Co de Phone Number [facility] [address] [place] [phone] * BI Mammogram Diagnostic Tomosynthesis Bilateral (04/15/2024 10:00 AM EST) Anatomical Region Laterality Modality Breast Bilateral Mammography 04/15/2024 10:0 0 AM EST Narrative 04/15/2024 10:44 AM EST ? [facility] ? [address] ?[place] [address] ? Mammography Report ? Signed ? Patient: Roel,Delilah ?MR#: [id number] ?? 41 ? : 1955 ?Acct:[id number] ? Age/Sex: 68 / F ?ADM Date: 02/11/25 ? Loc: HO.MAMMO ? Attending Dr: Patrick Monet MD ? Ordering Physician: Patrick Monet MD ?Results: 3.6MProbably Benign Finding - Short 6 M F/U ?? Suggested ? Date of Service: 04/15/24 ?Follow Up: 6 Month F/U ? Procedure(s): MM tomosynthesis diagnostic BI ?? Accession Number(s): [id number] ? cc: Patrick Monet MD ? EXAMINATION: [...] ? Signed By: ?<Electronically signed by Elda Tyminski, DO in OV> ? 04/15/24 1041 ? DD/ 1000 ? TD/TT: 04/15/24 1036 ? Manager Environmental Health: ? Procedure Note Sita, Shashi - 04/15/2024 [facility] [address] [place] [address] Dr. [place], [place] [address] Mammography Report Signed Patient: Delilah SevillaMR#: [id number] 41 : 8Acct:[id number] Age/Sex: 68 / FADM Date: 04/15/24 Loc: HO.MAMMO Attending Dr: Patrick Monet MD Ordering Physician: Patrick Monet MD Results: 3.6MProbably Benign Finding - Short 6 M F/U Suggested Date of Service: 02/11/25Follow Up: 6 Month F/U Procedure(s): MM tomosynthesis diagnostic BI Accession Number(s): [id number] cc: Patrick Monet MD EXAMINATION: MM DIAGNOSTIC [...] by: Elda Graham DO 04/15/2024 10:41 AM [facility] Dictated By: Elda Graham DO Signed By: <Electronically signed by Elda Graham DO in OV> 04/15/24 1041 DD/ 1000 TD/TT: 04/15/24 1036 Manager Environmental Health: us Patrick Monet MD IM BI PROCEDURES Final Result * (ABNORMAL) Hm Colonoscopy (12/25/2023) Colonoscopy Abnormal( A) Normal [facility] Comment:TA + hyperplastic po lyps us Patrick Monet MD HEALTH MAINTENANCE Final Result Performing Organization Address [facility] Co de Phone Number [facility] [address] [place] [phone] * (ABNORMAL) Lipid Panel, Standard (12/19/2023 9:22 AM EDT) Triglycerides 79 <150 mg/dL [facility] Comment:Desirable Triglyceri de: less than 150 mg/dLBorderline High Triglyceride 150-199 mg/dLHigh Triglyceride: 200-499 mg/dLVery High Triglyceride: greater than or equal to 5OO mg/dL Cholesterol 224(H) <200 mg/dL [facility] Comment:Desirable Cholestero l: less than 200 mg/dLBorderline High Cholesterol: 200-239 mg/dLHigh Cholesterol: greater than 239 mg/dL LDL Cholesterol Calculated 117(H) <100 mg/dL [facility] Comment:Desirable LDL: less than 100 mg/dLNear Optimal/Above Optimal LDL: 110- 129 mg/dLBorderline High LDL: 130-159 mg/dLHigh LDL: 160-189 mg/dLVery High LDL: greater than or equal to 190 mg/dL HDL Cholesterol 92 >40 mg/dL [facility] Comment:Desirable HDL: great er than 40 mg/dL Note: This HDL assay may give artificially low results in patients with liver disease. 12/19/2023 9:22 AM EDT 12/19/2023 11:43 AM EDT us Patrick Monet MD LAB BLOOD ORDERABLES Fin al Result Performing Organization Address [facility]/ZIP Co de Phone Number [facility] [address] [place] [phone] * Hepatitis Panel, General (12/04/2023 9:36 AM EDT) Hepatitis A IgM Nonreactive Nonreactive [facility] Comment:IgM antibodies to MARTINES V not detected; does not exclude earlyacute or recovered HAV infection. ~Hepatitis B Surface Antibody REACTIVE Nonreactive [facility] Comment:REACTIVE: > 11.99 mI U/mL Hepatitis B Core Antibody Nonreactive Nonreactive [facility] Hepatitis C Antibody Nonreactive Nonreactive [facility] Comment:Antibodies to HCV no t detected; does not exclude early acuteHCV infection. Hepatitis B Surface Ag Negative Negative [facility] Blood 12/04/2023 9:36 AM EDT 12/04/2023 11:01 AM EDT Patrick Monet MD LAB BLOOD ORDERABLES Fin al Result [facility] [address] [place] [phone] * (ABNORMAL) ThinPrep?? Imaging Pap Refl HPV mRNA(if ASCUS,ASC- H,LSIL,HSIL,TWILA)Refl Genotype (10/18/2023 10:43 AM EDT) HPV nRNA E6/E7 Detected(A ) Not Detected [facility] Comment:Methodology: Transcr iption-Mediated AmplificationThis assay detects E6/E7 viral messenger RNA (mRNA) from 14high-risk HPV types (16,18,31,33,35,39,45,51,52,56,58,59,66,68).Cervical sources are required for HPV testing.If a vaginal source from a patient who has had atotal hysterectomy with removal of cervix wassubmitted, please contact the testing laboratoryfor alternative testing options.For additional information, please refer tohttp://education.RackHunt/faq/HDX717m5(This link if provided for information/educational purposes only.)THIS TEST WAS PERFORMED AT:[facility] [place] [phone] MEDINA MD HPV 16,18/45 NOT DETECTED NOT DETECTED [facility] Comment:Methodology: Transcr iption Mediated AmplificationCervical sources are required for HPV testing.If a vaginal source from a patient who has had atotal hysterectomy with removal of cervix wassubmitted, please contact the testing laboratoryfor alternative testing options.THIS TEST WAS PERFORMED AT:[facility] [place] [phone] MEDINA MD SOURCE: SEE NOTE [facility] Comment:None given Report Status: [facility] Clinical Information: SEE NOTE [facility] Comment:None given LMP: SEE NOTE [facility] Comment:NONE GIVEN Prev. PAP: SEE NOTE [facility] Comment:NONE GIVEN Prev. BX: SEE NOTE [facility] Comment:NONE GIVEN Statement Of Adequacy: SEE NOTE [facility] Comment:Satisfactory for naheed luation.Endocervical/transformation zone componentpresent. General Categorization: SEE NOTE(A) [facility] Comment:Cytology Results: Ep ithelial Cell Abnormality Interpretation/Result: SEE NOTE(A) [facility] Comment:Atypical Squamous Ce lls of UndeterminedSignificance (ASC-US) Cytology Comment SEE NOTE [facility] Comment:This Pap test has be en evaluated with computerassisted technology. Precinct Police Sergeant: SEE NOTE [facility] Comment:DCR, CT(ASCP)CT scre ening location: [place] [address] Review Prec[address] Police Sergeant: [facility] Pathologist SEE NOTE [facility] Comment:Valerio Romero M.D./M.S .,Board Certified in Anatomic Pathology andBoard Eligible Cytopathology(electronic signature)Consulting [address] [phone] PAP Infection [facility] See Note SEE NOTE [facility] Comment:EXPLANATORY NOTE:The Pap is a screening test for cervical cancer. It isnot a diagnostic test and is subject to false negativeand false positive results. It is most reliable when asatisfactory sample, regularly obtained, is submittedwith relevant clinical findings and history, and whenthe Pap result is evaluated along with historic andcurrent clinical information.THIS TEST WAS PERFORMED AT:[facility] AN[address] PATH[address] [place] [phone] REYEZ MD 10/18/2023 10:4 3 AM EDT 10/18/2023 4:30 PM EDT Narrative [facility] - 10/31/2023 11:52 AM EDT SEE SCANNED RESULTS IN EMR Patrick Monet MD LAB CYTOLOGY ORDERABLES Final Result [facility] [address] [place] [phone] from Last 3 Months or Most Recently Relevant to Health Maintenance Insurance [facility] [employer] OPT[employer] (HMO D-SNP) Care Teams Jack Spooler Tender Relationship Specialty Start Date End Date Patrick Monet MD [address] [place] [address] PCP - General Family Medicine 12/12/19 Sung Rand, PharmD [address] [place] [address] Pharmacist Internal Medicine 05/27/24
[2024-08-15 12:27] LABS: Appearance Urine Clear; Color Urine Yellow; Glucose Urine UA Negative (Negative); Leukocyte Esterase Urine Negative (Negative); Nitrite Urine Negative (Negative); PH 5.5 (5.0-9.0); Specific Gravity - Urine 1.015 (1.005-1.025); UMIC TRIGGER UACC YES; Urine Blood Small (1+) (Negative); Urine Ketones Trace mg/dL (Negative); Urine Protein 30 (1+) mg/dL (Neg-Trace)
[2024-08-15 12:43] LABS: Bacteria Urine None Seen (None Seen); WBC Urine 0-5 /HPF (0-5)
[2024-08-15 12:44] LABS: RBC Urine 0-2 /HPF (0-2)
[2024-08-15 15:24] LABS: Anion Gap 12 (12-20); Blood Urea Nitrogen 39 mg/dL (9-16); Calcium 9.1 mg/dL (8.4-10.2); Carbon Dioxide 28 mmol/L (22-29); Chloride 97 mmol/L (96-108); Creatinine Clr Calc Pharmacy 26.1; Estimated Glomerular Filt Rate 29; Glucose Random 83 mg/dL (60-115); Potassium 3.4 mmol/L (3.3-5.1); Sodium 134 mmol/L (135-145)
== END 2024-08-15 16:30 | disposition home or self-care (01) ==
PROVIDERS: Physician Assistant; Emergency Provider Emergency Medicine; PCP Internal Medicine
DX: N17.9 Acute kidney failure, unspecified (principal); K52.9 Noninfective gastroenteritis and colitis, unspecified; R07.9 Chest pain, unspecified; R10.9 Unspecified abdominal pain; M06.9 Rheumatoid arthritis, unspecified; I10 Essential (primary) hypertension; R10.13 Epigastric pain; R11.2 Nausea with vomiting, unspecified; K59.00 Constipation, unspecified; Z79.899 Other long term (current) drug therapy
CPT/HCPCS: 36415; 74176; 80048; 80076; 81001; 83690; 84484; 85025; 93005; 96361; 96374; 96375; 99285; J2270; J2405; J7120

== ENCOUNTER → 2024-08-15 09:31 | Outpatient (BNV) | payer OTHER, SELFPAY | PROVIDERS: Emergency Provider Emergency Medicine; PCP Internal Medicine; Visit Provider Internal Medicine Cardiovascular Disease | DX: R07.9 Chest pain, unspecified (principal) | CPT/HCPCS: 93010 ==

== ENCOUNTER → 2024-08-15 11:13 | Outpatient (BNV) | payer OTHER, SELFPAY | PROVIDERS: Emergency Provider Emergency Medicine; PCP Internal Medicine; Visit Provider Radiology Diagnostic Radiology | DX: R10.84 Generalized abdominal pain (principal); N17.9 Acute kidney failure, unspecified | CPT/HCPCS: 74176 ==

== ENCOUNTER 2024-10-01 09:05 | Outpatient (REF) | payer OTHER, SELFPAY ==
--- NOTE | ~2024-10-01 | US_ITS ---
CLINICAL HISTORY: resistent HTN US Renal with Doppler Comparison: None provided Findings: Right kidney normal size and echotexture, 9.7 cm length. 2 cm lower pole cyst. No hydronephrosis. Normal color Doppler. Resistive index 0.6. PSV of the renal artery 145 cm/S. Left kidney normal size and echotexture, 9.1 cm length. No hydronephrosis. Normal color Doppler. Resistive index 0.6. PSV of renal artery 142 cm/S. IMPRESSION: No sonographic evidence of renal artery stenosis. This document has been electronically signed by: Piotr Castillo MD on 10/01/2024 13:12:06
--- OUTSIDE RECORDS SUMMARY | 2024-10-01 09:32 | XMS_ITS | Clinical Summary ---
Author Organization [employer] Address [address] [place] [address] Care Team Providers Care Home Care Manager Name Role Phone Cristy Monet MD Primary Care Provider + Sung Rand PharmD Unavailable [phone] Allergies Active Allergy Reactions Criticality Noted Date [...] 18 g 3 06/27/19 24 Active Umeclidinium [place] (Incruse Ellipta) 62.5 MCG/ACT aerosol powder Inhale [...] EVENING 180 tablet 2 05/30/19 25 Active amLODIPine (Norvasc) 5 MG tablet [...] MORNING 90 tablet 1 08/01/19 25 Active ARIPiprazole (Abilify) 5 MG tablet Take 1 tablet (5 mg) by mouth with evening meal. 30 tablet 1 08/23/19 25 Active omeprazole (PriLOSEC) [address] capsule TAKE 1 CAPSULE BY MOUTH TWICE DAILY IN THE MORNING AND IN THE EVENING BEFORE MEALS 60 capsule 1 09/05/19 25 Active hydroxychloroqui ne (Plaquenil) 200 MG tablet TAKE 1 TABLET BY MOUTH ONCE DAILY SUNDAY THROUGH SUNDAY AND TAKE 1 TABLET TWICE DAILY SUNDAY AND SUNDAY Active alirocumab (Praluent) 75 MG/ML injectionIndicat ions:History of non-ST elevation myocardial infarction (NSTEMI) Inject 1 mL (75 mg) under the skin every 14 (fourteen) days. 2 mL 5 09/26/19 25 Active omeprazole (PriLOSEC) [address] capsule TAKE 1 CAPSULE BY MOUTH TWICE DAILY IN THE MORNING AND IN THE EVENING BEFORE MEALS 60 capsule 1 07/16/19 25 025 Discontinued Active Problems Problem Noted Date Diagnosed Date KATHARINE (acute kidney injury) 08/22/2024 Assessment & Plan (08/22/2024 10:58 AM EDT): Status post DHT/vomiting/? Viral GI. Encourage to increase water intake, order labs and continue checking BP at home daily. Epigastric pain 08/22/2024 Assessment & Plan (08/22/2024 10:57 AM EDT): It could be related to nicotine use, advised to cut down smoking. Order H. pylori testing again and will treat as needed. Leg edema, right 07/14/2024 Assessment & Plan (07/14/2024 1:00 PM EDT): Order DVT ultrasound AZALIA II (cervical intraepithelial neoplasia II) 0 07/14/2024 Assessment & Plan (07/14/2024 1:07 PM EDT): S/p LEEP biopsy earlier this year, borders were negative Follow-up with [facility] in 6 months Memory impairment 07/14/2024 Assessment & Plan (08/22/2024 11:00 AM EDT): Doing well on aspirin 81 mg, tolerates well. Advised to optimal control risk factors as mentioned at previous visit. His CT scan of the brain is normal, not showing microvascular changes. She has a OLEOMARGARINE MAKER to help her with ADLs and remind her about appointments Patient missed appointment with neurology, I gave her information so that she can to schedule appointment. Assessment & Plan (07/14/2024 1:05 PM EDT): [...] managed with beta cayla Substance abuse 01/04/2024 Assessment & Plan (08/22/2024 10:58 AM EDT): Continues to use THC only, encouraged to cut down its use. Will continue to treat anxiety, switch aripiprazole for nighttime due to potential lightheadedness during the daytime. 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 Continue losartan, HCTZ, metoprolol 25 mg twice daily Will check regarding referral to relay adjuster due to resistant hypertension (8 was done [...] ambulance or go [facility]ARLENE to emergency room Encounter for preventive health examination 09/02 Assessment [...] ARTHRITIS WRITTEN ON 01/15/2024 12:41 PM BY MODE AGUERO NP Stable, Assessment & Plan (07/14/2024 12:57 PM EDT): On Plaquenil and symptoms seems to be better controlled, seen by outside deliverer Assessment & Plan (06/27/2023 10:39 AM EDT): - seen by rheumatology, reminded her to get labs done today and f/u with outside deliverer Assessment & Plan (06/27/2023 9:57 AM EDT): [...] asymptomatic I will refer to rheumatology in [facility] to improve compliance w/ appointment Assessment & [...] obstructive lung disease 12/11/2011 Assessment & Plan (08/22/2024 11:01 AM EDT): Significantly improved after cutting down smoking, encouraged to quit completely. Continue Incruse inhaler daily and albuterol as needed I gave her information to have PCV 20 and RSV vaccine at her convenience at the retail pharmacy Assessment & Plan (01/15/2024 12:41 PM EST): [...] HTN (hypertension), benign 12/11/2011 Assessment & Plan (08/22/2024 10:56 AM EDT): Significantly improved with increased dose of amlodipine. Continue losartan, HCTZ, metoprolol 25 mg twice daily, has follow-up appointment with cardiology next month (follow-up SVT) Renal ultrasound is pending for 09/16/2024, nephrology appointment still pending. I congratulated her for cutting down smoking, she declined use of nicotine replacement therapy. Advised to avoid alcohol or any other recreational substances Continue clonidine nightly only to avoid rebound hypertension Assessment & Plan (01/15/2024 12:41 PM EST): [...] quit 01/04/2024 0 07/14/2024 Acute hyperkalemia 01/04/2024 Vaginal discharge 10/18/2023 08/22/2024 Assessment & Plan (10/18/2023 2:18 PM EDT): Most likely physiological. Check STI testing. Hordeolum externum of left upper eyelid 09/17/2023 [...] Encounters Date Type Department Care Team Description 09/25/2024 11:30 AM EDT Telemedicine [address] [address] Sung Rand, PharmD Primary hypertension (Primary Dx); History of non-ST elevation myocardial infarction (NSTEMI) 09/04/[address] [address] Cristy Monet MD 08/22/2024 10:30 AM EDT Office Visit [address] [address] Cristy Monet MD HTN (hypertension), benign (Primary Dx); KATHARINE (acute kidney injury) (CMS/HCC); Substance abuse (CMS/HCC); Chronic obstructive pulmonary disease, unspecified COPD type (CMS/HCC); Memory impairment; Epigastric pain 08/22/2024 Travel 08/20/[address] [phone] Cristy Monet MD CHART PREP 08/15/2024 Orders Only GENERIC EXTERNAL DATA DEPARTMENT Provider, Generic External Data 08/13/2024 Patient Outreach [address] [address] Cristy Monet MD Pre-visit Planning (SDOH screening negative and tobacco screening negative) 08/06/2024 Telephone [facility] [address] [place] [phone] Cristy Monet MD 08/05/[address] [phone] Cristy Monet MD Referral 07/31/2024 Refill [facility] [address] [place] [phone] Cristy Monet MD 07/18/2024 Telephone [facility] [address] [place] [phone] Cristy Monet MD 07/16/2024 3:20 PM EDT Office Visit [facility] [address] [place] [phone] Garrison Cannon MD HTN (hypertension), benign (Primary Dx) 07/16/2024 Telephone [facility] [address] [address] Garrison Cannon MD 07/16/[address] [address] Cristy Monet MD Nurse Triage 07/15/2024 1:30 PM EDT Clinical Support [address] [address] Katherine Zambrano, ANASTASIA Impacted cerumen of right ear 07/15/2024 Travel 07/14/2024 11:30 AM EDT Office Visit [address] [address] Cristy Monet MD Resistant hypertension (Primary Dx); Leg edema, right; Memory impairment; Cigarette nicotine dependence without complication; Seronegative rheumatoid arthritis (CMS/HCC); AZALIA II (cervical intraepithelial neoplasia II) 07/14/[address] [address] Cristy Monet MD 07/14/2024 Travel 07/14/2024 Refill [facility] [address] [place] [phone] Cristy Moent MD Resistant hypertension 07/11/[address] [address] Cristy Monet MD Chart prep 07/10/[address] [address] Cristy Monet MD Nurse Triage 07/09/2024 10:00 AM EDT Office Visit [facility] [address] [place] [address] Garrison Cannon MD Epigastric pain (Primary Dx); Burning chest pain; HTN (hypertension), benign; Impacted cerumen of left ear 07/09/2024 Orders Only GENERIC EXTERNAL DATA DEPARTMENT Provider, Generic External Data 07/08/2024 Telephone [facility] [address] [place] [address] Cristy Monet MD Nurse Triage from Last 3 Months Immunizations Immunization Administration [...] your housing situation today? I have pool sing 08/13/[address] you li [...] Date Recorded Patient Health Questionnaire-2 Score 0 08/22/2024 Internet Access Answer Date Recorded Internet Access [...] Sign Reading Time Taken Comments Blood Pressure 133/88 09/25/2024 11:54 AM EDT [employer] (Home Monitor) Pulse 91 09/25/2024 11:54 AM EDT Temperature 36.2 C (97.1 F) 08/22/2024 10:28 AM EDT Respiratory Rate 12 08/22/2024 10:2 8 AM EDT Oxygen Saturation 97% 07/16/2024 11: 31 AM EDT Inhaled Oxygen Concentration - - Weight 53.6 kg (118 lb 4 oz) 08/22/2024 10:28 AM EDT Height 160 cm (5' 3 ) 08/22/2024 10:28 AM EDT Body Mass Index 20.95 08/22/2024 10:28 AM EDT Plan of Treatment Upcoming Encounters Date Type Department Care Team (Late st Contact Info) Description 10/23/2024 11:30 AM EDT Telemedicine [facility] [address] [place] [address] Sung Rand, PharmD [address] [place] [address] 11/11/2024 10:30 AM EDT Office Visit [facility] [address] [place], [place] [phone] Cristy Monet MD [address] [place], [place] [phone] Health Maintenance Due Date Last Done Comments CT Colonography 1955 FIT DNA/Cologuard 1955 FIT 1955 FOBT 1955 Sigmoidoscopy 1955 Alcohol/Substance Use Screening 1969 Hepatitis A Vaccines (1 of 2 - Risk 2-dose series) 1976 Pneumococcal Vaccine: 50+ Years (2 of 2 - PCV) 08/11/2013 08/11/2012, 11/25/2008, 10/17/2007 RSV Patients and Patients Aged 60 years or older (1 - Risk 60-74 years 1-dose series) 2017 Zoster Vaccines (2 of 2) 12/26/2022 10/31/2022 COVID-19 Vaccine (3 - season) 2023 01/04/2021, 12/14/2020 Diagnostic Breast Imaging 10/13/20242024, 10/10/2023, 07/07/2022 HPV/Cotest 10/30/2024 10/18/2023, 08/07/2022 Pap Smear 10/30/2024 10/18/2023, 0607/2022, 08/07/2022, Additional history exists Influenza Vaccine (#1) 2024 , 01/12/2020, 11/21/2018, Additional history exists SDOH Screening 08/13/2025 08/13/2024 Depression Screening 08/22/2025 08/22/2024, 08/23/19 Tobacco Screening 08/22/2025 08/22/2024 Lipid Panel 12/18/2028 12/19/2023, 0704/2022, 05/04/2021 Colonoscopy 12/24/2028 12/25/2023 Colorectal Cancer Screening 12/24/2028 DTaP/Tdap/Td Vaccines (3 - Td or Tdap) 10/31/2032 10/31/2022, 12/11/2011, 05/25/2004 Hepatitis B Vaccines Discontinued 01/30/2006, 12/27/19 06 Hepatitis C Screening Completed 12/04/2023, 023 HIB [...] Associated Diagnosis Comments BASIC METABOLIC PANEL Routine 08/15/2024 3:00 PM EDT URINALYSIS, COMPLETE, WITH REFLEX TO CULTURE Routine 08/15/2024 12:[address] ABDOMEN PELVIS WO CONTRAST Routine 08/15/2024 10:22 AM EDT LIPASE Routine 08/15/2024 9:42 AM EDT HIGH SENSITIVITY TROPONIN I Routine 08/15/2024 9:42 AM EDT BASIC METABOLIC PANEL Routine 08/15/2024 9:42 AM EDT HEPATIC FUNCTION PANEL Routine 9:42 AM EDT CBC WITH AUTO DIFFERENTIAL Routine 08/15/2024 9:42 AM EDT ECG 12-LEAD Routine 07/16/2024 4:39 PM EDT HTN (hypertension), benign IA REMOVAL IMPACTED CERUMEN IRRIGATION/LVG UNILAT Routine 07/15/2024 1:41 PM EDT Impacted cerumen of right ear ECG 12-LEAD Routine 07/09/2024 1:48 PM EDT Burning chest pain HIGH SENSITIVITY TROPONIN I Routine 07/09/2024 12:50 PM EDT BASIC METABOLIC PANEL Routine 07/09/2024 12:50 PM EDT HEPATIC FUNCTION PANEL Routine 12:50 PM EDT CBC WITH AUTO DIFFERENTIAL Routine 07/09/2024 12:50 PM EDT BI MAMMOGRAM DIAGNOSTIC TOMOSYNTHESIS BILATERAL Routine 04/15/2024 10:00 AM EST HM COLONOSCOPY Routine 12/25/2023 LIPID PANEL, STANDARD Routine 12/19/2023 9:22 AM EDT HEPATITIS PANEL, GENERAL Routine 12/04/2023 9:36 AM EDT Encounter for preventive health examination THINPREP IMAGING PAP REFL HPV MRNA(IF ASCUS,ASC-H,LSIL) Routine 10/18/2023 10:43 AM EDT from Last 3 Months or Most Recently Relevant to Health Maintenance Results * (ABNORMAL) Basic Metabolic Panel (08/15/2024 3:00 PM EDT) Only the most recent of3 resultswithin the time period is included. Sodium 134(L) 135 - 145 mmol/L [facility] Potassium 3.4 3.3 - 5.1 mmol/L [facility] Chloride 97 96 - 108 mmol/L [facility] Carbon Dioxide 28 22 - 29 mmol/L [facility] Anion Gap 12 12 - 20 [facility] Urea Nitrogen (BUN) 39(H) 9 - 16 mg/dL [facility] Creatinine, Serum 1.75(H) 0.5 - 1.4 mg/dL [facility] Creatinine Clr Calc Pharmacy 26.1 [facility] Comment:Provided height and weight: 160.02 cm,57.606 kg.eGFR (calculated from the MDRD study equation) and eCrCl(calculated from the Cockcroft-Gault equation) are based ondifferent parameters and may not yield comparable results.If eCrCl result is absurd, please check patient'sheight/weight. Estimated Glomerular Filt Rate 29 [facility] Comment:Chronic Kidney Disea se: Estimated GFR < 60 mL/min/1.37q7Zqgabs Kidney Disease: Estimated GFR < 15 mL/min/1.73m2 Glucose 83 60 - 115 mg/dL [facility] Calcium 9.1 8.4 - 10.2 mg/dL [facility] 08/15/2024 3:00 PM EDT 08/15/2024 3:07 PM EDT us Generic External Data Provider LAB BLOOD ORDERAB LES Final Result [facility] [address] [place] [phone] * (ABNORMAL) Urinalysis, Complete, with Reflex to Culture (08/15/2024 12:20 PM EDT) Color Urine Yellow [facility] Appearance Urine Clear [facility] PH 5.5 5.0 - 9.0 [facility] Glucose Urine UA Negative Negative mg/dL [facility] Urine Blood Small (1+)(A) Negative [facility] Specific [place] - Urine 1.015 1.005 - 1.025 [facility] Urine Protein 30 (1+)(A) Neg-Trace mg/dL [facility] Urine Ketones Trace Negative mg/dL [facility] Nitrite Urine Negative Negative [facility] Leukocyte Esterase Urine Negative Negative [facility] RBC Urine 0-2 0 - 2 /HPF [facility] Urine WBC 0-5 0 - 5 /HPF [facility] Urine Squamous Epithelial Cell 3-5 0 - 2 /HPF [facility] Urine Bacteria None Seen None Seen [facility] Hyaline Casts, Urine 3-5 0 - 2 /LPF [facility] 08/15/2024 12:2 0 PM EDT 08/15/2024 12:22 PM EDT Narrative [facility] - 08/15/2024 12:44 PM EDT Urine, Clean Catch us Generic External Data Provider LAB URINE ORDERAB LES Final Result Performing Organization Address City/State/[facility] Co de Phone Number [facility] [address] [place] [phone] * CT Abdomen Pelvis w/o Contrast (08/15/2024 10:22 AM EDT) Anatomical Region Laterality Modality Body, Pelvis, Abdomen Computed T omography 08/15/2024 10:2 2 AM EDT Narrative 08/15/2024 12:00 PM EDT [place] [id number] CT Scan Report Signed Patient: Delilah Sevilla MR#: [id number] 39 : 1955 Acct:[id number] Age/Sex: 68 / F ADM Date: 08/15/24 Loc: .ED Attending Dr: Ordering Physician: Araceli Morris Date of Service: 08/15/24 Procedure(s): CT abdomen pelvis wo IV con Accession Number(s): [id number] cc: Cristy Monet MD; Araceli Morris Report Number: [id number]: Total DLP = 318.00 mGy-cm EXAMINATION: CT ABDOMEN AND PELVIS WITHOUT CONTRAST CLINICAL INFORMATION: Severe central abdominal pain, KATHARINE. COMPARISON: 01/09/2023. TECHNIQUE: Multidetector volumetric imaging was performed from the superior aspect of the liver through the pubic symphysis. Sagittal and coronal reformatted images were obtained on the technologist's workstation. This CT examination was performed using dose optimization techniques as appropriate, variously including the following: *Automated exposure control *Adjustment of mA and/or kV according to patient size (this includes techniques or standardized protocols for targeted exams where dose is matched to indication/reason for exam; i.e. extremities or head) *Use of iterative reconstruction technique FINDINGS: LUNG BASES: Mild dependent atelectasis is present. Lung bases otherwise clear. No effusions. Normal heart size. Normal GE junction. LIVER, GALLBLADDER, AND BILIARY TREE: The liver is normal in size, shape, and attenuation. No suspicious focal hepatic lesion or biliary ductal dilatation is present. 1.0 cm segment 4B cyst present, tiny segment 6 cyst. The gallbladder is unremarkable with no evidence of radiopaque gallstones, gallbladder wall thickening, or obvious pericholecystic inflammatory changes. PANCREAS: Unremarkable. SPLEEN: Unremarkable. ADRENAL GLANDS: Mild bilateral hyperplasia. KIDNEYS AND URETERS: The kidneys are normal in size, shape, and attenuation. No hydronephrosis, hydroureter, or calculi seen. No perinephric stranding. There is a right lower pole 2.1 cm simple cyst. BLADDER: Unremarkable. GASTROINTESTINAL TRACT: Normal appendix is visualized. There are a few scattered colonic diverticula present. There is no colonic wall thickening or inflammation. The rectum appears normal. The small bowel is normal in caliber and course. No wall thickening or inflammation. The stomach, and duodenum have a normal appearance. There are no infiltrative changes in the small bowel mesentery. ABDOMINAL WALL: No significant hernia is appreciated. There are a few injection granulomata in the buttock regions. Focus of fat necrosis suspected right hip (series 3, image 77). LYMPH NODES: Normal. VASCULAR: Mild atheromatous calcification of the aorta and iliac vessels, without aneurysm. PELVIC VISCERA: The uterus and adnexa are unremarkable. OSSEOUS STRUCTURES: No suspicious lytic or blastic bone lesions. There is a right convex lumbar scoliosis. There are degenerative changes throughout the spine. There are no acute bone abnormalities. CT/CT abdomen pelvis wo IV con IMPRESSION: 1. No acute findings in the abdomen or pelvis. 2. Additional ancillary findings as discussed in the body of the report. Electronically signed by: Kiran Helms MD 08/15/2024 11:58 AM EDT Dictated By: Kiran Helms MD Signed By: <Electronically signed by Kiran Helms MD in OV> 08/15/24 1158 DD/ 1022 TD/TT: 08/15/24 1135 Transfusion Nurse: Procedure Note Donotuseinterpreter, Image - 08/15/[address] [address] [address] Scan Report Signed Patient: Ai Sevilla#: [id number] 39 : 8Acct:[id number] Age/Sex: 68 / FADM Date: 08/15/24 Loc: HO.ED Attending Dr: Ordering Physician: Araceli Morris Date of Service: 08/15/24 Procedure(s): CT abdomen pelvis wo IV con Accession Number(s): [id number] cc: Cristy Monet MD; Araceli Morris Report Number: [id number]: Total DLP = 318.00 mGy-cm EXAMINATION: CT ABDOMEN AND PELVIS WITHOUT CONTRAST CLINICAL INFORMATION: Severe central abdominal pain, KATHARINE. COMPARISON: 01/09/2023. TECHNIQUE: Multidetector volumetric imaging was performed from the superior aspect of the liver through the pubic symphysis. Sagittal and coronal reformatted images were obtained on the technologist's workstation. This CT examination was performed using dose optimization techniques as appropriate, variously including the following: *Automated exposure control *Adjustment of mA and/or kV according to patient size (this includes techniques or standardized protocols for targeted exams where dose is matched to indication/reason for exam; i.e. extremities or head) *Use of iterative reconstruction technique FINDINGS: LUNG BASES: Mild dependent atelectasis is present. Lung bases otherwise clear. No effusions. Normal heart size. Normal GE junction. LIVER, GALLBLADDER, AND BILIARY TREE: The liver is normal in size, shape, and attenuation. No suspicious focal hepatic lesion or biliary ductal dilatation is present. 1.0 cm segment 4B cyst present, tiny segment 6 cyst. The gallbladder is unremarkable with no evidence of radiopaque gallstones, gallbladder wall thickening, or obvious pericholecystic inflammatory changes. PANCREAS: Unremarkable. SPLEEN: Unremarkable. ADRENAL GLANDS: Mild bilateral hyperplasia. KIDNEYS AND URETERS: The kidneys are normal in size, shape, and attenuation. No hydronephrosis, hydroureter, or calculi seen. No perinephric stranding. There is a right lower pole 2.1 cm simple cyst. BLADDER: Unremarkable. GASTROINTESTINAL TRACT: Normal appendix is visualized. There are a few scattered colonic diverticula present. There is no colonic wall thickening or inflammation. The rectum appears normal. The small bowel is normal in caliber and course. No wall thickening or inflammation. The stomach, and duodenum have a normal appearance. There are no infiltrative changes in the small bowel mesentery. ABDOMINAL WALL: No significant hernia is appreciated. There are a few injection granulomata in the buttock regions. Focus of fat necrosis suspected right hip (series 3, image 77). LYMPH NODES: Normal. VASCULAR: Mild atheromatous calcification of the aorta and iliac vessels, without aneurysm. PELVIC VISCERA: The uterus and adnexa are unremarkable. OSSEOUS STRUCTURES: No suspicious lytic or blastic bone lesions. There is a right convex lumbar scoliosis. There are degenerative changes throughout the spine. There are no acute bone abnormalities. CT/CT abdomen pelvis wo IV con IMPRESSION: 1. No acute findings in the abdomen or pelvis. 2. Additional ancillary findings as discussed in the body of the report. Electronically signed by: Kiran Helms MD 08/15/2024 11:58 AM EDT Dictated By: Kiran Helms MD Signed By: <Electronically signed by Kiran Helms MD in OV> 08/15/24 1158 DD/ 1022 TD/TT: 08/15/24 1135 Transfusion Nurse: [facility] External Provider IMG CT PROCEDURES Final Result * High Sensitivity Troponin I (08/15/2024 9:42 AM EDT) Only the most recent of2 resultswithin the time period is included. TROPONIN I HIGH SENSITIVITY 13.7 <3.5 - 17.0 ng/L [facility] Comment:The Cade high sens itivity Troponin-I results should beused in conjunction with other diagnostic information suchas ECG, clinical observations and information, and patientsymptoms to aid in the diagnosis of NC. 08/15/2024 9:42 AM EDT 08/15/2024 9:45 AM EDT us Generic External Data Provider LAB BLOOD ORDERAB LES Final Result [facility] [address] [place] [phone] * (ABNORMAL) CBC auto differential (08/15/2024 9:42 AM EDT) Only the most recent of2 resultswithin the time period is included. White Blood Count 14.0(H) 4.8 - 10.8 X10*3/uL [facility] Red Blood Count 4.71 4.20 - 5.50 X10*6/uL [facility] Hemoglobin 14.9 12.0 - 16.0 g/dl [facility] Hematocrit 42.1 37.0 - 47.0 % [facility] Mean Corpuscular Volume 89.4 80.0 - 98.0 fL [facility] Mean Corpuscular Hemoglobin 31.6 27.0 - 33.0 pg [facility] Mean Corpuscular HGB Conc 35.4(H) 31.0 - 35.0 g/dl [facility] Red Cell Distribution Width 12.1 11.0 - 16.0 % [facility] Platelet Count 346 160 - 400 X10*3/uL [facility] Mean Platelet Volume 8.6(L) 9.4 - 12.3 fL [facility] Neutrophils Percent Auto 75.0(H) 45 - 73 % [facility] Imm Gran Pct Auto 0.3 0.0 - 0.4 % [facility] Lymphocytes Percent Auto 15.6(L) 20 - 40 % [facility] Monocytes Percent Auto 8.7 2 - 11 % [facility] Eosinophils Percent Auto 0.0 0 - 4 % [facility] Basophils Percent Auto 0.4 0 - 2 % [facility] NRBC Pct Auto 0.0 0.0 - 0.2 /100WBC [facility] Neutrophils Absolute Auto 10.5(H) 2.0 - 8.3 x10*3/uL [facility] Imm Gran Abs Auto 0.04(H) 0.00 - 0.03 X10*3/uL [facility] Lymphocytes Absolute Auto 2.2 1.2 - 4.9 X10*3/uL [facility] Monocytes Absolute Auto 1.2 0.1 - 1.2 X10*3/uL [facility] Eosinophils Absolute Auto 0.0 0.0 - 0.4 X10*3/uL [facility] Basophils Absolute Auto 0.1 0.0 - 0.2 X10*3/uL [facility] NRBC Abs Auto 0.000 0.0 - 0.012 X10*3/uL [facility] 08/15/2024 9:42 AM EDT 08/15/2024 9:45 AM EDT us Generic External Data Provider LAB BLOOD ORDERAB LES Final Result Performing Organization Address [facility]/ZIP Co de Phone Number [facility] [address] [place] [phone] * Lipase (08/15/2024 9:42 AM EDT) Lipase 76 8 - 78 U/L [facility] 08/15/2024 9:42 AM EDT 08/15/2024 9:45 AM EDT Generic External Data Provider LAB BLOOD ORDERAB LES Final Result Performing Organization Address [facility] Co de Phone Number [facility] [address] [place] [address] [phone] * (ABNORMAL) Hepatic Function Panel (08/15/2024 9:42 AM EDT) Only the most recent of2 resultswithin the time period is included. Bilirubin, Total 0.9 0.0 - 1.0 mg/dL [facility] Bilirubin, Direct 0.3 0.0 - 0.5 mg/dL [facility] Aspartate Amino Transferase 40(H) 5 - 31 U/L [facility] Alanine Aminotransferase 29 0 - 31 U/L [facility] Total Protein 8.5(H) 6.5 - 8.0 g/dL [facility] Albumin Level 5.1(H) 3.5 - 5.0 g/dL [facility] Alkaline Phosphatase 114 39 - 117 U/L [facility] 08/15/2024 9:42 AM EDT 08/15/2024 9:45 AM EDT us Generic External Data Provider LAB BLOOD ORDERAB LES Final Result [facility] [address] [place] [phone] * IA REMOVAL IMPACTED CERUMEN IRRIGATION/LVG UNILAT (07/15/2024 1:41 PM EDT) Narrative Katherine Zambrano RN - 07/15/2024 1:41 PM EDT Katherine Zambrano RN 07/15/2024 1:45 PM Ear Cerumen Removal Date/Time: 07/15/2024 1:41 PM Performed by: Katherine Zambrano RN Authorized by: Cristy Monet MD Consent: Consent obtained: Verbal Consent given by: Patient Risks, benefits, and alternatives were discussed: yes Risks discussed: Bleeding, infection, pain, dizziness, incomplete removal and TM perforation Alternatives discussed: Referral (ENT) [place] protocol: Procedure explained and questions answered to patient or proxy's satisfaction: yes Relevant documents present and verified: OV note from 07/09/24. Required blood products, implants, devices, and special equipment available: yes (Curette) Site/side marked: yes (L ear) Immediately prior to procedure, a time out was called: yes Patient identity confirmed: Verbally with patient Procedure details: Location: L ear Procedure type: irrigation Procedure outcomes: unable to remove cerumen Post-procedure details: Inspection: Some cerumen remaining Hearing quality: Diminished Procedure completion: Procedure terminated at patient's request Comments: Patient did not use debrox drops as Rx'd on 07/09/24. Patient reports she was not aware of debrox drops being prescribed. Cerumen visible in L ear canal however cerumen appears to be hardened and RN was unable to remove is irrigation or with curette. RN called [facility] pharmacy who confirms debrox drops are currently awaiting p/u from 07/09/24. RN advised patient to go to [facility] pharmacy to p/u debrox drops and to return in 1 week on 07/23/24 to re-attempt of ear lavage. Patient agreed to this POC. us Cristy Monet MD IN CLINIC/BEDSIDE ORDERA YG Final Result * BI Mammogram Diagnostic Tomosynthesis Bilateral (04/15/2024 10:00 AM EST) Anatomical Region Laterality Modality Breast Bilateral Mammography 04/15/2024 10:0 0 AM EST Narrative 04/15/2024 10:44 AM EST [facility] [address] [place] [address] Mammography Report Signed Patient: Delilah Sevilla MR#: [id number] 39 : 1955 Acct:[id number] Age/Sex: 68 / F ADM Date: 04/15/24 Loc: HO.MAMMO Attending Dr: Cristy Monet MD Ordering Physician: Cristy Monet MD Results: 3.6MProbably Benign Finding - Short 6 M F/U Suggested Date of Service: 04/15/24 Follow Up: 6 Month F/U Procedure(s): MM tomosynthesis diagnostic BI Accession Number(s): [id number] cc: Cristy Monet MD EXAMINATION: MM DIAGNOSTIC [...] 04/15/24 1041 DD/ 1000 TD/TT: 04/15/24 1036 Transfusion Nurse: Procedure Note Donotuseinterpreter, Image - 04/15/2024 [facility] [address] [place] [address] Mammography Report Signed Patient: Delilah Sevilla#: [id number] 39 : 8Acct:[id number] Age/Sex: 68 / FADM Date: 04/15/24 Loc: HO.MAMMO Attending Dr: Cristy Monet MD Ordering Physician: Cristy Monet MD Results: 3.6MProbably Benign Finding - Short 6 M F/U Suggested Date of Service: 04/15/24Follow Up: 6 Month F/U Procedure(s): MM tomosynthesis diagnostic BI Accession Number(s): [id number] cc: Cristy Monet MD EXAMINATION: MM DIAGNOSTIC [...] 04/15/24 1041 DD/ 1000 TD/TT: 04/15/24 1036 Transfusion Nurse: us Cristy Monet MD IMG BI PROCEDURES Final Result * (ABNORMAL) Hm Colonoscopy (12/25/2023) Colonoscopy Abnormal( A) Normal [facility] Comment:TA + hyperplastic po lyps us Cristy Monet MD HEALTH MAINTENANCE Final Result [facility] [address] [place] [phone] * (ABNORMAL) Lipid Panel, Standard (12/19/2023 9:22 AM EDT) Triglycerides 79 <150 mg/dL [facility] Comment:Desirable Triglyceri de: less than 150 mg/dLBorderline High Triglyceride 150-199 mg/dLHigh Triglyceride: 200-499 mg/dLVery High Triglyceride: greater than or equal to 5OO mg/dL Cholesterol 224(H) <200 mg/dL [facility] Comment:Desirable Cholestero l: less than 200 mg/dLBorderline High Cholesterol: 200-239 mg/dLHigh Cholesterol: greater than 239 mg/dL LDL Cholesterol Calculated 117(H) <100 mg/dL [facility] Comment:Desirable LDL: less than 100 mg/dLNear Optimal/Above Optimal LDL: 110- 129 mg/dLBorderline High LDL: 130-159 mg/dLHigh LDL: 160-189 mg/dLVery High LDL: greater than or equal to 190 mg/dL HDL Cholesterol 92 >40 mg/dL [facility] Comment:Desirable HDL: great er than 40 mg/dL Note: This HDL assay may give artificially low results in patients with liver disease. 12/19/2023 9:22 AM EDT 12/19/2023 11:43 AM EDT us Cristy Monet MD LAB BLOOD ORDERABLES Fin al Result [facility] [address] [place] [phone] * Hepatitis Panel, General (12/04/2023 9:36 AM EDT) Hepatitis A IgM Nonreactive Nonreactive [facility] Comment:IgM antibodies to MARTINES V not detected; does not exclude earlyacute or recovered HAV infection. ~Hepatitis B Surface Antibody REACTIVE Nonreactive [facility] Comment:REACTIVE: > 11.99 mI U/mL Hepatitis B Core Antibody Nonreactive Nonreactive [facility] Hepatitis C Antibody Nonreactive Nonreactive [facility] Comment:Antibodies to HCV no t detected; does not exclude early acuteHCV infection. Hepatitis B Surface Ag Negative Negative [facility] Blood 12/04/2023 9:36 AM EDT 12/04/2023 11:01 AM EDT Cristy Monet MD LAB BLOOD ORDERABLES Fin al Result [facility] [address] [place] [phone] * (ABNORMAL) ThinPrep?? Imaging Pap Refl HPV mRNA(if ASCUS,ASC- H,LSIL,HSIL,TWILA)Refl Genotype (10/18/2023 10:43 AM EDT) HPV nRNA E6/E7 Detected(A ) Not Detected [facility] Comment:Methodology: Transcr iption-Mediated AmplificationThis assay detects E6/E7 viral messenger RNA (mRNA) from 14high-risk HPV types (16,18,31,33,35,39,45,51,52,56,58,59,66,68).Cervical sources are required for HPV testing.If a vaginal source from a patient who has had atotal hysterectomy with removal of cervix wassubmitted, please contact the testing laboratoryfor alternative testing options.For additional information, please refer [email or web address] [email or web address]/[email or web address](This link if provided for information/educational purposes only.)THIS TEST WAS PERFORMED AT:[employer] [place] [phone] MEDINA MD HPV 16,18/45 NOT DETECTED NOT DETECTED [facility] Comment:Methodology: Transcr iption Mediated AmplificationCervical sources are required for HPV testing.If a vaginal source from a patient who has had atotal hysterectomy with removal of cervix wassubmitted, please contact the testing laboratoryfor alternative testing options.THIS TEST WAS PERFORMED AT:[employer] [place] [phone] MEDINA MD SOURCE: SEE NOTE [facility] Comment:None given Report Status: TNP [facility] Clinical Information: SEE NOTE [facility] Comment:None given LMP: SEE NOTE [facility] Comment:NONE GIVEN Prev. PAP: SEE NOTE [facility] Comment:NONE GIVEN Prev. BX: SEE NOTE [facility] Comment:NONE GIVEN Statement Of Adequacy: SEE NOTE [facility] Comment:Satisfactory for naheed luation.Endocervical/transformation zone componentpresent. General Categorization: SEE NOTE(A) [facility] Comment:Cytology Results: Ep ithelial Cell Abnormality Interpretation/Result: SEE NOTE(A) [facility] Comment:Atypical Squamous Ce lls of UndeterminedSignificance (ASC-US) Cytology Comment SEE NOTE [facility] Comment:This Pap test has be en evaluated with computerassisted technology. [employer]: SEE NOTE [facility] Comment:DCR, CT(ASCP)CT scre ening location: [place] [address] Review [employer]: [facility] Pathologist SEE NOTE [facility] Comment:Valerio Romero M.D./M.S .,Board Certified in Anatomic Pathology andBoard Eligible Cytopathology(electronic signature)Consulting PathologistWesson [facility] Pathology[address] [place] [address] [phone] PAP Infection [facility] See Note SEE NOTE [facility] Comment:EXPLANATORY NOTE:The Pap is a screening test for cervical cancer. It isnot a diagnostic test and is subject to false negativeand false positive results. It is most reliable when asatisfactory sample, regularly obtained, is submittedwith relevant clinical findings and history, and whenthe Pap result is evaluated along with historic andcurrent clinical information.THIS TEST WAS PERFORMED AT:[facility]AT[facility] PATH[facility] [place] [phone] REYEZ MD 10/18/2023 10:4 3 AM EDT 10/18/2023 4:30 PM EDT Narrative [facility] - 10/31/2023 11:52 AM EDT SEE SCANNED RESULTS IN EMR us Cristy Monet MD LAB CYTOLOGY ORDERABLES Final Result [facility] [address], [place] [phone] from Last 3 Months or Most Recently Relevant to Health Maintenance Insurance [facility] [employer] (HMO D-SNP) [facility] STANDARD Care Teams Home Care Manager Relationship Specialty Start Date End Date Cristy Monet MD [address] [place] [address] PCP - General Family Medicine 12/12/19 Sung Rand, PharmD [address] [place] [address] Pharmacist Internal Medicine 05/27/24
== END 2024-10-01 09:06 | disposition home or self-care (01) ==
LOC: HO.US 09:05
PROVIDERS: PCP Internal Medicine; Visit Provider Internal Medicine
DX: I10 Essential (primary) hypertension (principal)
CPT/HCPCS: 93975

== ENCOUNTER → 2024-10-01 09:07 | Outpatient (BNV) | payer OTHER, SELFPAY | PROVIDERS: PCP Internal Medicine; Visit Provider Nuclear Medicine | DX: I1A.0 Resistant hypertension (principal) | CPT/HCPCS: 93975 ==

== ENCOUNTER 2024-10-15 13:04 | Outpatient (REF) | payer OTHER, SELFPAY ==
--- NOTE | ~2024-10-15 | MM_ITS ---
EXAMINATION: MM DIAGNOSTIC DIGITAL BREAST TOMOSYNTHESIS, LEFT Left Limited ultrasound. CLINICAL INFORMATION: Follow-up for grouped calcifications in the upper outer left breast initiated October 2023.. COMPARISON: Mammography: Priors on PACS. TECHNIQUE: Digital breast tomosynthesis is performed in both the craniocaudal and mediolateral oblique views along with computer-aided detection (CAD). Synthesized 2D images are generated from the tomosynthesis. FINDINGS: The breasts are heterogeneously dense, which may obscure small masses (ACR BI-RADS breast composition Category c). Grouped coarse heterogeneous calcifications in the upper outer quadrant not significantly changed from prior magnification views. There is an irregular asymmetry with questioned architectural distortion in the superior left breast on MLO view localizing slightly laterally have far posterior depth. No suspicious other abnormal findings. Targeted color Doppler ultrasound scanning from 11-3 o'clock in the upper central upper outer breast posterior and anterior depth demonstrate an irregular solid mass at 2:00 8 cm from the nipple measuring 9 x 6 x 9 mm correlating with the irregular asymmetry on mammography with distortion. MM/MM tomosynthesis diagnostic LT IMPRESSION: 1. Solid irregular mass at 2:00 8 cm from the nipple. Recommend histology with ultrasound-guided core needle biopsy at this time. The findings and recommendations were discussed with the patient the procedure will be scheduled. The patient left before left CC L images could be performed and declined at this time. X CCL of the left breast is recommended when the patient has for ultrasound biopsy. 2. Grouped coarse heterogeneous calcifications in the upper outer quadrant stable from prior magnification views. Management will be pending biopsy of the above mass. 3. Patient has heterogeneous fibroglandular breast tissue in a suspicious left breast mass. Breast MRI should be considered for further evaluation after the biopsy. Breast MRI would need to be ordered by the patient's providing clinician. ASSESSMENT: BI-RADS BI-RADS 4 - Suspicious finding RECOMMENDATION: Biopsy recommended Results were discussed with the patient at time of visit. Electronically signed by: Elda Graham DO 10/15/2024 02:14 PM EDT
--- OUTSIDE RECORDS SUMMARY | 2024-10-15 13:38 | XMS_ITS | Clinical Summary ---
Author Organization [employer] Address [address] [facility] [address] [place] [address] Care Team Providers Care Well Logging Mud Analysis Captain Name Role Phone Cristy Monet MD Primary Care Provider + Sung Rand PharmD Unavailable [phone] Allergies Active Allergy Reactions Criticality Noted Date Comments Jed Inhibitors Cough 05/26/2010 Pravastatin Muscle Pain Low 11/30/2023 11/30/2023 MTM patient reported that they self discontinued this medication due to muscle pain Medications zolpidem (Ambien) 5 MG tablet Take 5 mg by mouth if needed at bedtime. 3 Active albuterol 108 (90 Base) MCG/ACT inhaler Inhale 2 puffs every 6 (six) hours if needed for wheezing. 18 g 3 4 Active Umeclidinium [place] (Incruse Ellipta) 62.5 MCG/ACT aerosol powder Inhale 1 Inhalation Once per day. 1 each 11 4 Active Calcium Carb-Cholecalcife rol (Oyster Shell Calcium w/D) 500-5 MG-MCG tablet TAKE 1 TABLET BY MOUTH TWICE DAILY 180 tablet 3 4 Active acetaminophen (Tylenol 8 Hour) 650 MG ER tablet Take 650 mg by mouth every 8 (eight) hours if needed for mild pain. Do not crush, chew, or split. Active isoniazid (Nydrazid) 300 MG tablet Take 1 tablet by mouth Once per day. 4 Active pyridoxine (Vitamin B-6) 50 MG tablet Take 1 tablet by mouth Once per day. 4 Active metoprolol tartrate (Lopressor) 25 MG tabletIndications :HTN (hypertension), benign TAKE 1 TABLET BY MOUTH TWICE DAILY IN THE MORNING AND IN THE EVENING 180 tablet 2 5 Active amLODIPine (Norvasc) 5 MG tablet Take 1 tablet (5 mg) by mouth Once per day. 30 tablet 11 5 07/15/19 26 Active cloNIDine (Catapres) 0.1 MG tabletIndications :Resistant hypertension TAKE 1 TABLET BY MOUTH nightly 30 tablet 5 Active aspirin 81 MG EC tablet Take 1 tablet (81 mg) by mouth Once per day. 30 tablet 11 5 07/15/19 26 Active citalopram (CeleXA) 20 MG tablet Take 1 tablet (20 mg) by mouth Once per day. 30 tablet 5 Active Blood Pressure Monitoring (Blood Pressure Cuff) misc Use daily as prescribed 1 each 5 Active losartan (Cozaar) 100 MG tablet TAKE 1 TABLET BY MOUTH EVERY MORNING 90 tablet 1 5 Active hydroCHLOROthiazi de (HYDRODiuril) 25 MG tablet TAKE 1 TABLET BY MOUTH EVERY MORNING 90 tablet 1 5 Active ARIPiprazole (Abilify) 5 MG tablet Take 1 tablet (5 mg) by mouth with evening meal. 30 tablet 1 5 Active omeprazole (PriLOSEC) [address] capsule TAKE 1 CAPSULE BY MOUTH TWICE DAILY IN THE MORNING AND IN THE EVENING BEFORE MEALS 60 capsule 1 5 Active hydroxychloroquin e (Plaquenil) 200 MG tablet TAKE 1 TABLET BY MOUTH ONCE DAILY SUNDAY THROUGH SUNDAY AND TAKE 1 TABLET TWICE DAILY SUNDAY AND SUNDAY Active alirocumab (Praluent) 75 MG/ML injectionIndicati ons:History of non-ST elevation myocardial infarction (NSTEMI) Inject 1 mL (75 mg) under the skin every 14 (fourteen) days. 2 mL 5 5 Active Active Problems Problem Noted Date Diagnosed Date [...] this year, borders were negative Follow-up with RFP WRITER in 6 months Memory impairment 07/14/2024 Assessment & Plan (08/22/2024 11:00 AM EDT): Doing well on aspirin 81 mg, tolerates well. Advised to optimal control risk factors as mentioned at previous visit. His CT scan of the brain is normal, not showing microvascular changes. She has a FILE CLERK DATA ENTRY to help her with ADLs and remind [...] twice daily Will check regarding referral to receiving weigher due to resistant hypertension (8 was done [...] seems to be better controlled, seen by roll coating machine operator Assessment & Plan (06/27/2023 10:39 AM EDT): - seen by rheumatology, reminded her to get labs done today and f/u with roll coating machine operator Assessment & Plan (06/27/2023 9:57 AM EDT): [...] asymptomatic [place] [facility] [place] w/ [...] activity. Check home BP BIW and prn CP/MARTINES/BAEBE Smoking patient. Labs are due on September [...] Encounters Date Type Department Care Team Description 10/08/[address] [address] Cristy Monet MD Normal imaging letter 10/08/2024 Results [facility]-Up [address] [facility] [place] [address] Cristy Monet MD US RENAL DOPPLER 09/25/2024 11:30 AM EDT Telemedicine [facility] [place] [address] Sung Rand, PharmD Primary hypertension (Primary Dx); History of non-ST elevation myocardial infarction (NSTEMI) 09/04/2024 [address] [place] [address] Cristy Monet MD 08/22/2024 10:30 AM EDT Office Visit [address] [place] [address] Cristy Monet MD HTN (hypertension), benign (Primary Dx); KATHARINE (acute kidney injury) (CMS/HCC); Substance abuse (CMS/HCC); Chronic obstructive pulmonary disease, unspecified COPD type (CMS/HCC); Memory impairment; Epigastric pain 08/22/2024 Travel 08/20/2024 Telephone [facility] [place] [address] Cristy Monet MD CHART PREP 08/15/2024 Orders Only GENERIC EXTERNAL DATA DEPARTMENT Provider, Generic External Data 08/13/2024 Patient Outreach [facility] [address] Cristy Monet MD Pre-visit Planning (SDOH screening negative and tobacco screening negative) 08/06/2024 [facility] [place] [phone] Cristy Monet MD 08/05/2024 Telephone [facility] [address] [place] [phone] Cristy Monet MD Referral 07/31/2024 Refill [facility] [address] [place] [phone] Cristy Monet MD 07/18/2024 Telephone [facility] [address] [place] [phone] Cristy Monet MD 07/16/2024 3:20 PM EDT Office Visit [facility] [address] [place] [phone] Garrison Cannon MD HTN (hypertension), benign (Primary Dx) 07/16/2024 Telephone [facility] [address] [place] [phone] Garrison Cannon MD 07/16/2024 Telephone [facility] [address] [place] [phone] Cristy Monet MD Nurse Triage 07/15/2024 1:30 PM EDT Clinical Support [facility] [address] [place] [phone] Katherine Zambrano, RN Impacted cerumen of right ear 07/15/2024 Travel from Last 3 Months Immunizations Immunization [...] housing situation today? I have pool gomez 08/13/[address] you [...] Info) Description 10/23/2024 11:30 AM EDT Telemedicine [facility] [address] [place] [phone] Sung Rand, PharmD [address] [place] [address] 11/11/2024 10:30 AM EDT Office Visit [facility] [address] [place] [phone] Cristy Monet MD [address] [place] [phone] Health Maintenance Due Date Last Done Comments [...] COVID-19 Vaccine ( season) 2023 01/04/2021, 12/14/2020 Diagnostic Breast Imaging 10/13/20242024, 10/10/2023, 07/07/2022 HPV/Cotest 10/30/2024 10/18/2023, 08/07/2022 Pap Smear 10/30/2024 10/18/2023, 06/0 07/2022, 08/07/2022, Additional history exists Influenza Vaccine (#1) 2024 , 01/12/2020, 11/21/2018, Additional history exists SDOH Screening 08/13/2025 08/13/2024 Depression Screening 08/22/2025 08/22/2024, 08/23/19 Tobacco Screening 08/22/2025 08/22/2024 Lipid Panel 12/18/2028 12/19/2023, 09/02, 05/04/2021 Colonoscopy [...] Procedure Name Priority Date/Time Associated Diagnosis Comments US RENAL DOPPLER Routine 10/01/2024 1:12 PM EDT Resistant hypertension BASIC METABOLIC PANEL Routine 08/15/2024 3:00 PM EDT URINALYSIS, COMPLETE, WITH REFLEX TO CULTURE Routine 08/15/2024 12:[address] ABDOMEN PELVIS WO CONTRAST Routine 08/15/2024 10:22 AM EDT LIPASE Routine 08/15/2024 9:42 AM EDT HIGH SENSITIVITY TROPONIN I Routine 08/15/2024 9:42 AM EDT BASIC METABOLIC PANEL Routine 08/15/2024 9:42 AM EDT HEPATIC FUNCTION PANEL Routine 08/15/2024 9:42 AM EDT CBC WITH AUTO DIFFERENTIAL Routine 08/15/2024 9:42 AM EDT ECG 12-LEAD Routine 07/16/2024 4:39 PM EDT HTN (hypertension), benign VA REMOVAL IMPACTED CERUMEN IRRIGATION/LVG UNILAT Routine 07/15/2024 1:41 PM EDT Impacted cerumen of right ear BI MAMMOGRAM DIAGNOSTIC TOMOSYNTHESIS BILATERAL Routine 04/15/2024 10:00 AM EST HM COLONOSCOPY Routine 12/25/2023 LIPID PANEL, STANDARD Routine 12/19/2023 9:22 AM EDT HEPATITIS PANEL, GENERAL Routine 12/04/2023 9:36 AM EDT Encounter for preventive health examination THINPREP IMAGING PAP REFL HPV MRNA(IF ASCUS,ASC-H,LSIL) Routine 10/18/2023 10:43 AM EDT from Last 3 Months or Most Recently Relevant to Health Maintenance Results * US RENAL DOPPLER (10/01/2024 1:12 PM EDT) Anatomical Region Laterality Modality Abdomen Ultrasound 10/01/2024 1:12 PM EDT Narrative 10/01/2024 1:13 PM EDT [address] [address] Ultrasound Report Signed Patient: Delilah Sevilla MR#: [id number] 39 : 1955 Acct:[id number] Age/Sex: 68 / F ADM Date: 10/01/24 Loc: HO.US Attending Dr: Cristy Monet MD Ordering Physician: Cristy Monet MD Date of Service: 10/01/24 Procedure(s): US renal doppler Accession Number(s): [id number] cc: Cristy Monet MD CLINICAL HISTORY: resistent HTN US Renal with Doppler Comparison: None provided Findings: Right kidney normal size and echotexture, 9.7 cm length. 2 cm lower pole cyst. No hydronephrosis. Normal color Doppler. Resistive index 0.6. PSV of the renal artery 145 cm/S. Left kidney normal size and echotexture, 9.1 cm length. No hydronephrosis. Normal color Doppler. Resistive index 0.6. PSV of renal artery 142 cm/S. IMPRESSION: No sonographic evidence of renal artery stenosis. This document has been electronically signed by: Piotr Castillo MD on 10/01/2024 13:12:06 Dictated By: Piotr Castillo MD Signed By: <Electronically signed by Piotr Castillo MD in OV> 10/01/24 1313 DD/ 1312 TD/TT: 10/01/24 1312 Machine Worker: Procedure Note Donotuseinterpreter, Image - 10/01/[address] [address] Ultrasound Report Signed Patient: Delilah SevillaMR#: [id number] 39 : 1955cct:[id number] Age/Sex: 68 / FADM Date: 10/01/24 Loc: HO.US Attending Dr: Cristy Monet MD Ordering Physician: Cristy Monet MD Date of Service: 10/01/24 Procedure(s): US renal doppler Accession Number(s): [id number] cc: Cristy Monet MD CLINICAL HISTORY: resistent HTN US Renal with Doppler Comparison: None provided Findings: Right kidney normal size and echotexture, 9.7 cm length. 2 cm lower pole cyst. No hydronephrosis. Normal color Doppler. Resistive index 0.6. PSV of the renal artery 145 cm/S. Left kidney normal size and echotexture, 9.1 cm length. No hydronephrosis. Normal color Doppler. Resistive index 0.6. PSV of renal artery 142 cm/S. IMPRESSION: No sonographic evidence of renal artery stenosis. This document has been electronically signed by: Piotr Castillo MD on 10/01/2024 13:12:06 Dictated By: Piotr Castillo MD Signed By: <Electronically signed by Piotr Castillo MD in OV> 10/01/24 1313 DD/ 1312 TD/TT: 10/01/24 1312 Machine Worker: us Cristy Monet MD IMG US PROCEDURES Final Result * (ABNORMAL) Basic Metabolic Panel (08/15/2024 3:00 PM EDT) Only the most recent of2 resultswithin the time period is included. Sodium 134(L) 135 - 145 mmol/L [facility] Potassium 3.4 3.3 - 5.1 mmol/L [facility] Chloride 97 96 - 108 mmol/L [facility] Carbon Dioxide 28 22 - 29 mmol/L [facility] Anion Gap 12 12 - 20 [facility] Urea Nitrogen (BUN) 39(H) 9 - 16 mg/dL [facility] Creatinine, Serum 1.75(H) 0.5 - 1.4 mg/dL [facility] Creatinine Clr Calc Pharmacy 26.1 [facility] Comment:Provided height and weight: 160.02 cm,57.606 kg.eGFR (calculated from the MDRD study equation) and eCrCl(calculated from the Cockcroft-Gault equation) are based ondifferent parameters and may not yield comparable results.If eCrCl result is absurd, please check patient'sheight/weight. Estimated Glomerular Filt Rate 29 [facility] Comment:Chronic Kidney Disea se: Estimated GFR < 60 mL/min/1.53q1Fhfyei Kidney Disease: Estimated GFR < 15 mL/min/1.73m2 Glucose 83 60 - 115 mg/dL [facility] Calcium 9.1 8.4 - 10.2 mg/dL [facility] 08/15/2024 3:00 PM EDT 08/15/2024 3:07 PM EDT us Generic External Data Provider LAB BLOOD ORDERAB LES Final Result [facility] [address] [place] [phone] * (ABNORMAL) Urinalysis, Complete, with Reflex to Culture (08/15/2024 12:20 PM EDT) Color Urine Yellow [facility] Appearance Urine Clear [facility] PH 5.5 5.0 - 9.0 [facility] Glucose Urine UA Negative Negative mg/dL [facility] Urine Blood Small (1+)(A) Negative [facility] Specific Jackson - Urine 1.015 1.005 - 1.025 [facility] Urine Protein 30 (1+)(A) Neg-Trace mg/dL [facility] Urine Ketones Trace Negative mg/dL [facility] Nitrite Urine Negative Negative [facility] Leukocyte Esterase Urine Negative Negative [facility] RBC Urine 0-2 0 - 2 /HPF [facility] Urine WBC 0-5 0 - 5 /HPF [facility] Urine Squamous Epithelial Cell 3-5 0 - 2 /HPF [facility] Urine Bacteria None Seen None Seen [facility] Hyaline Casts, Urine 3-5 0 - 2 /LPF [facility] 08/15/2024 12:2 0 PM EDT 08/15/2024 12:22 PM EDT Narrative [facility] - 08/15/2024 12:44 PM EDT Urine, Clean Catch us Generic External Data Provider LAB URINE ORDERAB LES Final Result [facility] [address] [place] [phone] * CT Abdomen Pelvis w/o Contrast (08/15/2024 10:22 AM EDT) Anatomical Region Laterality Modality Body, Pelvis, Abdomen Computed T omography 08/15/2024 10:2 2 AM EDT Narrative 08/15/2024 12:00 PM EDT [address] [address] [address] Scan Report Signed Patient: Delilah Sevilla MR#: [id number] 39 : 1955 Acct:[id number] Age/Sex: 68 / F ADM Date: 08/15/24 Loc: HO.ED Attending Dr: Ordering Physician: Araceli Morris Date of Service: 08/15/24 Procedure(s): CT abdomen pelvis wo IV con Accession Number(s): [id number] cc: Cristy Monet MD; Araceli Morris Report Number: [id number]: Total DLP = 318.00 mGy-cm EXAMINATION: CT [...] 08/15/24 1158 DD/ 1022 TD/TT: 08/15/24 1135 Machine Worker: Procedure Note Donotuseinterpreter, Image - 08/15/[address] [address] [address] Scan Report Signed Patient: Delilah SevillaMR#: [id number] 39 : 8Acct:[id number] Age/Sex: 68 / FADM Date: 08/15/24 Loc: HO.ED Attending Dr: Ordering Physician: Araceli Morris Date of Service: 08/15/24 Procedure(s): CT abdomen pelvis wo IV con Accession Number(s): [id number] cc: Cristy Monet MD; Araceli Morris Report Number: [id number]: Total DLP = 318.00 mGy-cm EXAMINATION: CT [...] Kiran Helms MD 08/15/2024 11:58 AM EDT RP Dictated By: Kiran Helms MD Signed By: <Electronically signed by Kiran Helms MD in OV> 08/15/24 1158 DD/ 1022 TD/TT: 08/15/24 1135 Machine Worker: [facility] External Provider IMG CT PROCEDURES Final Result * High Sensitivity Troponin I (08/15/2024 9:42 AM EDT) [facility] TROPONIN I HIGH SENSITIVITY 13.7 <3.5 - 17.0 ng/L [facility] Comment:The Cade high sens itivity Troponin-I results should beused in conjunction with other diagnostic information suchas ECG, clinical observations and information, and patientsymptoms to aid in the diagnosis of ND. 08/15/2024 9:42 AM EDT 08/15/2024 9:45 AM EDT Generic External Data Provider LAB BLOOD ORDERAB LES Final Result [facility] [address] [place] [phone] * (ABNORMAL) CBC auto differential (08/15/2024 9:42 AM EDT) [facility] White Blood Count 14.0(H) 4.8 - 10.8 X10*3/uL [facility] Red Blood Count 4.71 4.20 - 5.50 X10*6/uL [facility] Hemoglobin 14.9 12.0 - 16.0 g/dl [facility] Hematocrit 42.1 37.0 - 47.0 % [facility] Mean Corpuscular Volume 89.4 80.0 - 98.0 fL [facility] Mean Corpuscular Hemoglobin 31.6 27.0 - 33.0 pg [facility] Mean Corpuscular HGB Conc 35.4(H) 31.0 - 35.0 g/dl [facility] Red Cell Distribution Width 12.1 11.0 - 16.0 % [facility] Platelet Count 346 160 - 400 X10*3/uL [facility] Mean Platelet Volume 8.6(L) 9.4 - 12.3 fL [facility] Neutrophils Percent Auto 75.0(H) 45 - 73 % [facility] Imm Gran Pct Auto 0.3 0.0 - 0.4 % [facility] Lymphocytes Percent Auto 15.6(L) 20 - 40 % [facility] Monocytes Percent Auto 8.7 2 - 11 % [facility] Eosinophils Percent Auto 0.0 0 - 4 % [facility] Basophils Percent Auto 0.4 0 - 2 % [facility] NRBC Pct Auto 0.0 0.0 - 0.2 /100WBC [facility] Neutrophils Absolute Auto 10.5(H) 2.0 - 8.3 x10*3/uL [facility] Imm Gran Abs Auto 0.04(H) 0.00 - 0.03 X10*3/uL [facility] Lymphocytes Absolute Auto 2.2 1.2 - 4.9 X10*3/uL [facility] Monocytes Absolute Auto 1.2 0.1 - 1.2 X10*3/uL [facility] Eosinophils Absolute Auto 0.0 0.0 - 0.4 X10*3/uL [facility] Basophils Absolute Auto 0.1 0.0 - 0.2 X10*3/uL [facility] NRBC Abs Auto 0.000 0.0 - 0.012 X10*3/uL [facility] 08/15/2024 9:42 AM EDT 08/15/2024 9:45 AM EDT us Generic External Data Provider LAB BLOOD ORDERAB LES Final Result Performing Organization Address [facility]/ZIP Co de Phone Number [facility] [address] [place] [phone] * Lipase (08/15/2024 9:42 AM EDT) Pathologist [facility] Lipase 76 8 - 78 U/L [facility] 08/15/2024 9:42 AM EDT 08/15/2024 9:45 AM EDT us Generic External Data Provider LAB BLOOD ORDERAB LES Final Result Performing Organization Address [facility] Co de Phone Number [facility] [address] [place] [phone] * (ABNORMAL) Hepatic Function Panel (08/15/2024 9:42 AM EDT) Bilirubin, Total 0.9 0.0 - 1.0 mg/dL [facility] Bilirubin, Direct 0.3 0.0 - 0.5 mg/dL [facility] Aspartate Amino Transferase 40(H) 5 - 31 U/L [facility] Alanine Aminotransferase 29 0 - 31 U/L [facility] Total Protein 8.5(H) 6.5 - 8.0 g/dL [facility] Albumin Level 5.1(H) 3.5 - 5.0 g/dL [facility] Alkaline Phosphatase 114 39 - 117 U/L [facility] 08/15/2024 9:42 AM EDT 08/15/2024 9:45 AM EDT us Generic External Data Provider LAB BLOOD ORDERAB LES Final Result [facility] [address] [place] [phone] * VA REMOVAL IMPACTED CERUMEN IRRIGATION/LVG UNILAT (07/15/2024 1:41 PM EDT) Katherine Gonzalez RN - 07/15/2024 1:41 PM EDT Katherine Zambrano RN 07/15/2024 1:45 PM Ear Cerumen Removal Date/Time: 07/15/2024 1:41 PM Performed by: Katherine Zambrano RN Authorized by: Cristy Monet MD Consent: Consent obtained: Verbal Consent given by: Patient Risks, benefits, and alternatives were discussed: yes Risks discussed: Bleeding, infection, pain, dizziness, incomplete removal and TM perforation Alternatives discussed: Referral (ENT) [place] protocol: Procedure explained and questions answered to [...] is irrigation or with curette. RN called [facility] pharmacy who confirms debrox drops are currently awaiting p/u from 07/09/24. RN advised patient to go to [facility] pharmacy to p/u debrox drops and to return in 1 week on 07/23/24 to re-attempt of ear lavage. Patient agreed to this POC. Cristy Monet MD IN CLINIC/BEDSIDE ORDERA BLES Final Result * BI Mammogram Diagnostic Tomosynthesis Bilateral (04/15/2024 10:00 AM EST) Anatomical Region Laterality Modality Breast Bilateral Mammography 04/15/2024 10:0 0 AM EST Narrative 04/15/2024 10:44 AM EST [facility] [address] [place] [address] Mammography Report Signed Patient: Delilah Sevilla MR#: [id number] 39 : 1955 Acct:[id number] Age/Sex: 68 / F ADM Date: 04/15/24 Loc: HO.MAMMO Attending Dr: Cristy Monet MD Ordering Physician: Cristy Monet MD Results: 3.6MProbably Benign Finding - Short 6 M F/U Suggested Date of Service: 04/15/24 Follow Up: 6 Month F/U Procedure(s): MM tomosynthesis diagnostic BI Accession Number(s): [id number] cc: Cristy Monet MD EXAMINATION: MM DIAGNOSTIC [...] 04/15/24 1041 DD/ 1000 TD/TT: 04/15/24 1036 Machine Worker: Procedure Note Donotuseinterpreter, Image - 04/15/2024 [facility] [address] [place], [place] [address] Mammography Report Signed Patient: Delilah SevillaMR#: [id number] 39 : 1955cct:[id number] Age/Sex: 68 / FADM Date: 04/15/24 Loc: HO.MAMMO Attending Dr: Cristy Monet MD Ordering Physician: Cristy Monet MD Results: 3.6MProbably Benign Finding - Short 6 M F/U Suggested Date of Service: 04/15/24Follow Up: 6 Month F/U Procedure(s): MM tomosynthesis diagnostic BI Accession Number(s): [id number] cc: Cristy Monet MD EXAMINATION: MM DIAGNOSTIC [...] 04/15/24 1041 DD/ 1000 TD/TT: 04/15/24 1036 Machine Worker: Cristy Monet MD IMG BI PROCEDURES Final Result * (ABNORMAL) Hm Colonoscopy (12/25/2023) Colonoscopy Abnormal( A) Normal [facility] Comment:TA + hyperplastic po lyps us Cristy Monet MD HEALTH MAINTENANCE Final Result [facility] [address] [place] [phone] * (ABNORMAL) Lipid Panel, Standard (12/19/2023 9:22 AM EDT) Triglycerides 79 <150 mg/dL [facility] Comment:Desirable Triglyceri de: less than 150 mg/dLBorderline High Triglyceride 150-199 mg/dLHigh Triglyceride: 200-499 mg/dLVery High Triglyceride: greater than or equal to 5OO mg/dL Cholesterol 224(H) <200 mg/dL [facility] Comment:Desirable Cholestero l: less than 200 mg/dLBorderline High Cholesterol: 200-239 mg/dLHigh Cholesterol: greater than 239 mg/dL LDL Cholesterol Calculated 117(H) <100 mg/dL [facility] Comment:Desirable LDL: less than 100 [...] AM EDT 12/19/2023 11:43 AM EDT Cristy Moent MD LAB BLOOD ORDERABLES Fin al Result Performing Organization Address [facility] Co de Phone Number [facility] [address] [place] [phone] [phone] * Hepatitis Panel, General (12/04/2023 9:36 AM EDT) Hepatitis A IgM Nonreactive Nonreactive [facility] Comment:IgM antibodies to MARTINES V not detected; does not exclude earlyacute or recovered HAV infection. ~Hepatitis B Surface Antibody REACTIVE Nonreactive [facility] Comment:REACTIVE: > 11.99 mI U/mL Hepatitis B Core Antibody Nonreactive Nonreactive [facility] Hepatitis C Antibody Nonreactive Nonreactive [facility] Comment:Antibodies to HCV no t detected; does not exclude early acuteHCV infection. Hepatitis B Surface Ag Negative Negative [facility] Blood 12/04/2023 9:36 AM EDT 12/04/2023 11:01 AM EDT Cristy Monet MD LAB BLOOD ORDERABLES Fin al Result Performing Organization Address [facility] Co de Phone Number [facility] [address] [place] [phone] * (ABNORMAL) ThinPrep?? Imaging Pap Refl HPV mRNA(if ASCUS,ASC- H,LSIL,HSIL,TWILA)Refl Genotype (10/18/2023 10:43 AM EDT) HPV nRNA E6/E7 Detected(A ) Not Detected [facility] Comment:Methodology: Transcr iption-Mediated AmplificationThis assay detects E6/E7 viral messenger RNA (mRNA) from 14high-risk HPV types (16,18,31,33,35,39,45,51,52,56,58,59,66,68).Cervical sources are required for HPV testing.If a vaginal source from a patient who has had atotal hysterectomy with removal of cervix wassubmitted, please contact the testing laboratoryfor alternative testing options.For additional information, please refer tohttp://education.VirtueBuild/faq/KDS558c0(This link if provided for information/educational purposes only.)THIS TEST WAS PERFORMED AT:[facility] [address] [phone] MEDINA MD HPV 16,18/45 NOT DETECTED NOT DETECTED [facility] Comment:Methodology: Transcr iption Mediated AmplificationCervical sources are required for HPV testing.If a vaginal source from a patient who has had atotal hysterectomy with removal of cervix wassubmitted, please contact the testing laboratoryfor alternative testing options.THIS TEST WAS PERFORMED AT:[facility] [address] [phone] MEDINA MD SOURCE: SEE NOTE [facility] Comment:None given Report Status: TNP [facility] Clinical Information: SEE NOTE [facility] Comment:None given LMP: SEE NOTE [facility] Comment:NONE GIVEN Prev. PAP: SEE NOTE [facility] Comment:NONE GIVEN Prev. BX: SEE NOTE [facility] Comment:NONE GIVEN Statement Of Adequacy: SEE NOTE [facility] Comment:Satisfactory for naheed luation.Endocervical/transformation zone componentpresent. General Categorization: SEE NOTE(A) [facility] Comment:Cytology Results: Ep ithelial Cell Abnormality Interpretation/Result: SEE NOTE(A) [facility] Comment:Atypical Squamous Ce lls of UndeterminedSignificance (ASC-US) Cytology Comment SEE NOTE [facility] Comment:This Pap test has be en evaluated with computerassisted technology. Bar Porter: SEE NOTE [facility] Comment:DCR, CT(ASCP)CT scre ening location: [place] [address] Review Bar Porter: [facility] Pathologist SEE NOTE [facility] Comment:Valerio Romero M.D./Jose Molina,Board Certified in Anatomic Pathology andBoard Eligible Cytopathology(electronic signature)Consulting PathologistGood [facility]aritan [facility] Pathology[address] [place] [address] [phone] PAP Infection [facility] See Note SEE NOTE [facility] Comment:EXPLANATORY NOTE:The Pap is a screening test for cervical cancer. It isnot a diagnostic test and is subject to false negativeand false positive results. It is most reliable when asatisfactory sample, regularly obtained, is submittedwith relevant clinical findings and history, and whenthe Pap result is evaluated along with historic andcurrent clinical information.THIS TEST WAS PERFORMED AT:[facility] AN[address]OM[address] PATH[address] [place] [phone] REYEZ MD 10/18/2023 10:4 3 AM EDT 10/18/2023 4:30 PM EDT Narrative [facility] - 10/31/2023 11:52 AM EDT SEE SCANNED RESULTS IN EMR us Cristy Monet MD LAB CYTOLOGY ORDERABLES Final Result [facility] [address] [place] [address] [phone] from Last 3 Months or Most Recently Relevant to Health Maintenance Insurance [facility] [employer] OPTIONS (HMO D-SNP) [facility] STANDARD Care Teams Well Logging Mud Analysis Captain Relationship Specialty Start Date End Date Cristy Monet MD [address] [place] [address] PCP - General Family Medicine 12/12/19 Sung Rand, DaeD [address] [place] [address] Pharmacist Internal Medicine 05/27/24
== END 2024-10-15 13:05 | disposition home or self-care (01) ==
LOC: HO.MAMMO 13:04
PROVIDERS: PCP Internal Medicine; Visit Provider Internal Medicine
DX: N64.89 Other specified disorders of breast (principal)
CPT/HCPCS: 76642; 77061; 77065

== ENCOUNTER → 2024-10-15 13:30 | Outpatient (BNV) | payer OTHER, SELFPAY | PROVIDERS: PCP Internal Medicine; Visit Provider Internal Medicine | DX: N63.21 Unspecified lump in the left breast, upper outer quadrant (principal); R92.1 Mammographic calcification found on diagnostic imaging of breast | CPT/HCPCS: 76642; 77065; G0279 ==

== ENCOUNTER 2024-11-04 09:32 | Outpatient (REF) | payer OTHER, SELFPAY ==
--- OUTSIDE RECORDS SUMMARY | 2024-11-04 10:36 | XMS_ITS | Encounter Summary ---
Author Organization [employer] Address [address] [facility] 7t [place] [address] Care Team Providers Care Byproducts Extractor Name Role Phone Cristy Monet MD Primary Care Provider + Sung Rand PharmD Unavailable [phone] Encounter Details Date Type Department Care Team (Late st Contact Info) Description 06/09/2024 Orders Only [facility]EDS [address] [place], [place] [phone] ProviderIda MD Social History Tobacco Use Types [...] Care Team (Late st Contact Info) Description 11/11/2024 10:30 AM EDT Office Visit [facility] MEDICINE [address] [place] [address] Cristy Monet MD [address] [place] [address] 12/11/2024 11:00 AM EDT Telemedicine [facility] MEDICINE [address] [place] [address] Sung Rand, PharmD [address] [place] [address] 03/16/2025 11:00 AM EST Office Visit [facility] OPTOMETRY [address] [place] [address] [place] Colbert, OD [address] [place] [address] documented as of this encounter Procedures Procedure Name Priority Date/Time Associated Diagnosis Comments BIOPSY CERVIX Routine 05/02/2024 11:47 AM EST documented in this encounter Results * Biopsy cervix (05/02/2024 11:47 AM EST) us Historical Provider IN CLINIC/BEDSIDE ORDERAB LES Final Result documented in this encounter Visit Diagnoses Not on filedocumented in this encounter Care Teams Byproducts Extractor Relationship Specialty Start Date End Date Cristy Monet MD [address] [place] [address] PCP - General Family Medicine 12/12/19 Sung Rand, Bill [address] [place] [address] Pharmacist Internal Medicine 05/27/24 documented as of this encounter
--- OUTSIDE RECORDS SUMMARY | 2024-11-04 10:36 | XMS_ITS | Encounter Summary ---
Author Organization [employer] Address [address] [facility] 7t [place] [address] Care Team Providers Care Contract Paralegal Name Role Phone Cristy Monet MD Primary Care Provider + Sung Rand PharmD Unavailable [phone] Encounter Details Date Type Department Care Team ([facility] st Contact Info) Description 09/10/2023 Telephone [facility] MEDICINE [address] [place], [place] [phone] Cristy Monet MD [address] [place], [place] [phone] Social History Tobacco Use Types Packs/Day Years [...] Description 11/11/2024 10:30 AM EDT Office Visit [facility] MEDICINE [address] [place] [phone] Cristy Monet MD [address] [place] [address] 12/11/2024 11:00 AM EDT Telemedicine [facility] MEDICINE [address] [place] [address] Sung Rand, PharmD [address] [place] [address] 03/16/2025 11:00 AM EST Office Visit [facility] OPTOMETRY [address] [place] [address] Filemon, [place], OD [address] [place] [address] documented as of this encounter Visit Diagnoses Not on filedocumented in this encounter Care Teams Contract Paralegal Relationship Specialty Start Date End Date Cristy Monet MD [address] [place] [address] PCP - General Family Medicine 12/12/19 Sung Rand, PharmD [address] [place] [phone] Pharmacist Internal Medicine 05/27/24 documented as of this encounter
--- OUTSIDE RECORDS SUMMARY | 2024-11-04 10:36 | XMS_ITS | Encounter Summary ---
Author Organization [employer] Address 75 [facility] [address] [place] [address] Care Team Providers Care Central Station Operator Name Role Phone Cristy Monet MD Primary Care Provider + Sung Rand PharmD Unavailable [phone] Encounter Details Date Type Department Care Team (Late st Contact Info) Description 07/07/2022 Orders Only [facility] MEDICINE [address] [place] [address] [phone] Odilia Smiley LPN Social History Tobacco Use [...] Description 11/11/2024 10:30 AM EDT Office Visit [facility] MEDICINE [address] [place] [phone] Cristy Monet MD [address] [place] [address] 12/11/2024 11:00 AM EDT Telemedicine [facility] MEDICINE [address] [place] [phone] Sung Rand, PharmD [address] [place] [address] [phone] 03/16/2025 11:00 AM EST Office Visit [facility] OPTOMETRY [address] [place] [address] [place] Colbert, OD [address] [place] [address] documented as of this encounter Procedures Procedure Name Priority Date/Time Associated Diagnosis Comments BI MAMMOGRAM SCREENING TOMOSYNTHESIS BILATERAL Routine 07/07/2022 1:05 PM EDT documented in this encounter Results * BI Mammogram Screening Tomosynthesis Bilateral (07/07/2022 1:05 PM EDT) Anatomical Region Laterality Modality Breast Bilateral Mammography 07/07/2022 1:05 PM EDT Narrative 07/10/2022 1:12 PM EDT [facility] [place] [address] Mammography Report Signed Patient: Delilah Sevilla MR#: [id number] : 1955 Acct:[id number] Age/Sex: 66 / F ADM Date: 07/07/22 Loc: HO.MAMMO Attending Dr: Cristy Monet MD Ordering Physician: Cristy Monet MD Results: 2Be nign Findings Date of Service: 07/07/22 Follow Up: 1 Year From Orig ina Mammogram Procedure(s): MM tomosynthesis screening BI Accession Number(s): [id number] cc: Cristy Monet MD EXAMINATION: MM SCREENING [...] in OV> 07/10/22 1309 DD/ 1305 TD/TT: Electroencephalogram Technologist: ACOSTA Procedure Note Donotuseinterpreter, Image - 08/31/2022 [facility] [address] [place] [address] Mammography Report Signed Patient: Delilah SevillaMR#: [id number] : 8Acct:[id number] Age/Sex: 66 / FADM Date: 07/07/22 Loc: HO.MAMMO Attending Dr: Cristy Monet MD Ordering Physician: Cristy Monet MDResults: 2Be nign Findings Date of Service: 07/07/22Follow Up: 1 Year From Orig ina Mammogram Procedure(s): MM tomosynthesis screening BI Accession Number(s): [id number] cc: Cristy Monet MD EXAMINATION: MM SCREENING [...] in OV> 07/10/22 1309 DD/ 1305 TD/TT: Electroencephalogram Technologist: ACOSTA [facility] External Provider IMG BI PROCEDURES Final Result documented in this encounter Visit Diagnoses Not on filedocumented in this encounter Care Teams Central Station Operator Relationship Specialty Start Date End Date Cristy Monet MD [address] [place] [address] PCP - General Family Medicine 12/12/19 Sung Rand PharmD [address] [place] [address] Pharmacist Internal Medicine 05/27/24 documented as of this encounter
--- OUTSIDE RECORDS SUMMARY | 2024-11-04 10:36 | XMS_ITS | Encounter Summary ---
Author Organization [employer] Address [address] [facility] [address] 7[address] [place] [address] Care Team Providers Care Sign Wirer Name Role Phone Cristy Monet MD Primary Care Provider + Sung Rand PharmD Unavailable [phone] Encounter Details Date Type Department Care Team (Late st Contact Info) Description 04/17/2024 Orders Only [facility] MEDICINE [address] [place], [place] [phone] ProviderIda MD Social History Tobacco Use Types [...] Description 11/11/2024 10:30 AM EDT Office Visit [facility] MEDICINE [address] [place] [address] Cristy Monet MD [address] [place] [address] 12/11/2024 11:00 AM EDT Telemedicine [facility] MEDICINE [address] [place] [address] Sung Rand, PharmD [address] [place] [address] 03/16/2025 11:00 AM EST Office Visit [facility] OPTOMETRY [address] [place] [address] Filemon, [place], OD [address] [place] [address] documented as of this encounter Procedures Procedure Name Priority Date/Time Associated Diagnosis Comments COLPOSCOPY Routine 04/14/2024 3:06 PM EST documented in this encounter Results * Colposcopy (04/14/2024 3:06 PM EST) us Historical Provider IN CLINIC/BEDSIDE ORDERAB LES Final Result documented in this encounter Visit Diagnoses Not on filedocumented in this encounter Care Teams Sign Wirer Relationship Specialty Start Date End Date Cristy Monet MD [address] [place] [phone] PCP - General Family Medicine 12/12/19 Sung Rand, PharmD [address] [place] [phone] Pharmacist Internal Medicine 05/27/24 documented as of this encounter
--- OUTSIDE RECORDS SUMMARY | 2024-11-04 10:36 | XMS_ITS | Encounter Summary ---
Author Organization [employer] Address [address] [facility] 7t [place] [address] Care Team Providers Care Certified Pest Control Technician Name Role Phone Cristy Monet MD Primary Care Provider + Sung Rand PharmD Unavailable [phone] Encounter Details Date Type Department Care Team ([facility] st Contact Info) Description 10/08/2024 Results Follow-Up [facility] MEDICINE [address] [place] [address] Cristy Monet MD [address] [place], [place] [phone] [place] RENAL DOPPLER Social History Tobacco Use Types Packs/Day Years [...] Encounter Note - Cristy Monet MD - 10/08/2024 2:57 PM EDT Please send Normal Imaging Letter documented in this encounter Plan of Treatment Upcoming Encounters Date Type Department Care Team (Late st Contact Info) Description 11/11/2024 10:30 AM EDT Office Visit [facility] MEDICINE [address] [place] [phone] Cristy Monet MD [address] [place] [address] 12/11/2024 11:00 AM EDT Telemedicine [facility] MEDICINE [address] [place] [address] Sung Rand, PharmD [address] [place] [address] 03/16/2025 11:00 AM EST Office Visit [facility] OPTOMETRY [address] [place] [address] [place] Colbert, OD [address] [place] [address] documented as of this encounter Visit Diagnoses Not on filedocumented in this encounter Care Teams Certified Pest Control Technician Relationship Specialty Start Date End Date Cristy Monet MD [address] [place] [address] PCP - General Family Medicine 12/12/19 Sung Rand, Bill [address] [place] [phone] Pharmacist Internal Medicine 05/27/24 documented as of this encounter
--- OUTSIDE RECORDS SUMMARY | 2024-11-04 10:36 | XMS_ITS | Encounter Summary ---
Author Organization [employer] Address [address] [facility] 7t [place] [address] Care Team Providers Care Assurance Engineer Name Role Phone Cristy Monet MD Primary Care Provider + Sung Rand PharmD Unavailable [phone] Encounter Details Date Type Department Care Team ([facility] Contact Info) Description 09/13/2022 Orders Only [facility] MEDICINE [address] [place] [address] [phone] Cristy Monet MD [address] [place], [place] [phone] Hyperkalemia (Primary Dx); Hypercalcemia Social History Tobacco [...] Upcoming Encounters Date Type Department Care Team ([facility] Contact Info) Description 11/11/2024 10:30 AM EDT Office Visit [facility] MED[facility]INE [address] [place] [address] [phone] Cristy Monet MD [address] [place], [place] [phone] 12/11/2024 11:00 AM EDT Telemedicine [facility] MEDICINE [address] [place] [address] Sung Rand, DaeD [address] [place] [address] 03/16/2025 11:00 AM EST Office Visit [facility] OPTOMETRY [address] [place], [place] [phone] Filemon, [place], OD [address] [place], [place] [phone] documented as of this encounter Procedures Procedure Name Priority Date/Time Associated Diagnosis Comments BASIC METABOLIC PANEL Routine 09/25/2022 8:41 AM EDT Hyperkalemia Hypercalcemia documented in this encounter Results * (ABNORMAL) Basic Metabolic Panel (09/25/2022 8:41 AM EDT) Sodium 138 135 - 145 mmol/L [facility] Potassium 5.0 3.3 - 5.1 mmol/L [facility] Chloride 102 96 - 108 mmol/L [facility] Carbon Dioxide 30(H) 22 - 29 mmol/L [facility] Anion Gap 11(L) 12 - 20 [facility] Urea Nitrogen (BUN) 15 9 - 16 mg/dL [facility] Creatinine, Serum 0.78 0.5 - 1.4 mg/dL [facility] Estimated Glomerular Filt Rate >60 [facility] Comment:NOTE: For -Am erican individuals, multiply the result by 1.210.Chronic Kidney Disease: Estimated GFR < 60 mL/min/1.68a5Lnzsfw Kidney Disease: Estimated GFR < 15 mL/min/1.73m2 Glucose 96 60 - 115 mg/dL [facility] Calcium 9.6 8.4 - 10.2 mg/dL [facility] Blood Venous blood specimen / Unknown 09/25/2022 8:41 AM EDT 09/25/2022 11:03 AM EDT Cristy Monet MD LAB BLOOD ORDERABLES Fin al Result [facility] [address] [place] [address] [phone] documented in this encounter Visit Diagnoses Diagnosis Hyperkalemia- Primary Hyperpotassemia Hypercalcemia documented in this encounter Care Teams Assurance Engineer Relationship Specialty Start Date End Date Cristy Monet MD [address] [place] [address] PCP - General Family Medicine 12/12/19 Sung Rand, DaeD [address] [place] [address] Pharmacist Internal Medicine 05/27/24 documented as of this encounter
--- OUTSIDE RECORDS SUMMARY | 2024-11-04 10:36 | XMS_ITS | Encounter Summary ---
Author Organization [employer] Address [address] [facility] [address] [place] [address] Care Team Providers Care Tunnel Elastic Operator Zigzag Name Role Phone Cristy Monet MD Primary Care Provider + Sung Rand PharmD Unavailable [phone] Encounter Details Date Type Department Care Team (Late st Contact Info) Description 03/28/2022 Orders Only [facility] MEDICINE [address] [place] [address] [phone] Odilia Smiley LPN Social History Tobacco Use [...] Description 11/11/2024 10:30 AM EDT Office Visit [facility] [address] [place] [phone] Cristy Monet MD [address] [place] [address] [phone] 12/11/2024 11:00 AM EDT Telemedicine [facility] [address] [place] [address] [phone] Sung Rand, PharmD [address] [place] [address] [phone] 03/16/2025 11:00 AM EST Office Visit [facility] OPTOMETRY [address] [place] [address] [place] Colbert, OD [address] [place] [address] documented as of this encounter Visit Diagnoses Not on filedocumented in this encounter Care Teams Tunnel Elastic Operator Zigzag Relationship Specialty Start Date End Date Cristy Monet MD [address] [place] [address] PCP - General Family Medicine 12/12/19 Sung Rand, DaeD [address] [place] [address] [phone] Pharmacist Internal Medicine 05/27/24 documented as of this encounter
--- OUTSIDE RECORDS SUMMARY | 2024-11-04 10:36 | XMS_ITS | Clinical Summary ---
Author Organization [employer] Address [address] [facility] [address] [place] [address] Care Team Providers Care Modeling Instructor Name Role Phone Cristy Monet MD Primary Care Provider + Sung Rand PharmD Unavailable [phone] Allergies Active Allergy Reactions Criticality Noted Date [...] wheezing. 18 g 3 4 Active Umeclidinium [place] (Incruse Ellipta) 62.5 MCG/ACT aerosol powder Inhale [...] this year, borders were negative Follow-up with ACCIDENT EXAMINER in 6 months Memory impairment 07/14/2024 Assessment & Plan (08/22/2024 11:00 AM EDT): Doing well on aspirin 81 mg, tolerates well. Advised to optimal control risk factors as mentioned at previous visit. His CT scan of the brain is normal, not showing microvascular changes. She has a RELATIONSHIP EXECUTIVE to help her with ADLs and remind [...] twice daily Will check regarding referral to dials inspector due to resistant hypertension (8 was done [...] seems to be better controlled, seen by rail transportation tabeler Assessment & Plan (06/27/2023 10:39 AM EDT): - seen by rheumatology, reminded her to get labs done today and f/u with rail transportation tabeler Assessment & Plan (06/27/2023 9:57 AM EDT): [...] asymptomatic I will refer to rheumatology in [facility] to improve compliance w/ appointment [...] Encounters Date Type Department Care Team Description 10/27/2024 Telephone [facility] [address] [facility] [place] [address] Sung Rand PharmD 10/23/2024 11:30 AM EDT Telemedicine [facility] [address] [place] [address] Sung Rand PharmD Primary hypertension (Primary Dx) 10/15/2024 Orders Only [facility] [address] [place] [address] Cristy Monet MD 10/08/2024 Telephone [facility] [address] [facility] [place] [address] Cristy Monet MD Normal imaging letter 10/08/2024 Results Follow-Up [facility] [address] [facility] [place] [address] Cristy Monet MD US RENAL DOPPLER 09/25/2024 11:30 AM EDT Telemedicine [facility] [address], [place] [address] Sung Rand PharmD Primary hypertension (Primary Dx); History of non-ST elevation myocardial infarction (NSTEMI) 09/04/2024 Refill [facility] [address] [facility] [place] [address] Cristy Monet MD 08/22/2024 10:30 AM EDT Office Visit [facility] [address] [facility] [place] [address] Cristy Monet MD HTN (hypertension), benign (Primary Dx); KATHARINE (acute kidney injury) (CMS/HCC); Substance abuse (CMS/HCC); Chronic obstructive pulmonary disease, unspecified COPD type (CMS/HCC); Memory impairment; Epigastric pain 08/22/2024 Travel 08/20/2024 Telephone [facility] [address] [facility] [place] [address] Cristy Monet MD CHART PREP 08/15/2024 Orders Only GENERIC EXTERNAL DATA DEPARTMENT Provider, Generic External Data 08/13/2024 Patient Outreach [facility] [address] [place] [address] Cristy Monet MD Pre-visit Planning (SDOH screening negative and tobacco screening negative) 08/06/2024 Telephone [facility] [address] [place], [place] [phone] Cristy Monet MD 08/05/2024 Telephone [facility] [address] [place] [address] Cristy Monet MD Referral from Last 3 Months Immunizations Immunization Administration [...] Sign Reading Time Taken Comments Blood Pressure 141/100 10/23/2024 11:49 AM EDT [facility] [facility] (Televisit) Pulse 83 10/23/2024 11:49 AM EDT Temperature 36.2 C (97.1 F) [...] Description 11/11/2024 10:30 AM EDT Office Visit [facility] [address] [place] [address] Cristy Monet MD [address] [place] [address] 12/11/2024 11:00 AM EDT Telemedicine [facility] [address] [place] [address] Sung Rand, PharmD [address] [place] [address] 03/16/2025 11:00 AM EST Office Visit [facility] OPTOMETRY [address] [place] [address] Indiana Colbert, OD [address] [place] [address] Health Maintenance Due Date Last Done Comments [...] COVID-19 Vaccine ( season) 2023 01/04/2021, 12/14/2020 HPV/Cotest 10/30/2024 10/18/2023, 08/07/2022 Pap Smear 10/30/2024 10/18/2023, 06/0 07/2022, 08/07/2022, Additional history exists Influenza Vaccine (#1) 2024 , 01/12/2020, 11/21/2018, Additional history exists Diagnostic Breast Imaging 04/17/20252024, 10/15/2024, 04/15/2024, Additional history exists SDOH Screening 08/13/2025 08/13/2024 [...] Name Priority Date/Time Associated Diagnosis Comments BI US BREAST LIMITED LEFT Routine 10/15/2024 1:22 PM EDT BI MAMMOGRAM DIAGNOSTIC TOMOSYNTHESIS LEFT Routine 10/15/2024 1:20 PM EDT US RENAL DOPPLER Routine 10/01/2024 1:12 PM [...] AUTO DIFFERENTIAL Routine 08/15/2024 9:42 AM EDT HM COLONOSCOPY Routine 12/25/2023 LIPID PANEL, STANDARD Routine 12/19/2023 9:22 AM EDT HEPATITIS PANEL, GENERAL Routine 12/04/2023 9:36 AM EDT Encounter for preventive health examination THINPREP IMAGING PAP REFL HPV MRNA(IF ASCUS,ASC-H,LSIL) Routine 10/18/2023 10:43 AM EDT from Last 3 Months or Most Recently Relevant to Health Maintenance Results * BI US Breast Limited Left (10/15/2024 1:22 PM EDT) Anatomical Region Laterality Modality Breast Left Ultrasound 10/15/2024 1:22 PM EDT Narrative 10/15/2024 2:17 PM EDT [facility] [address] [place] [address] [place] [address] Ultrasound Report Signed Patient: Delilah Sevilla MR#: [id number] 39 : 1955 Acct:[id number] Age/Sex: 69 / F ADM Date: 10/15/24 Loc: HO.MAMMO Attending Dr: Cristy Monet MD Ordering Physician: Cristy Monet MD Date of Service: 10/15/24 Procedure(s): US breast LT limited mamm only Accession Number(s): [id number] cc: Cristy Monet MD EXAMINATION: MM DIAGNOSTIC DIGITAL BREAST TOMOSYNTHESIS, LEFT Left Limited ultrasound. CLINICAL INFORMATION: Follow-up for grouped calcifications in the upper outer left breast initiated October 2023.. COMPARISON: Mammography: Priors on PACS. TECHNIQUE: Digital breast tomosynthesis is performed in both the craniocaudal and mediolateral oblique views along with computer-aided detection (CAD). Synthesized 2D images are generated from the tomosynthesis. FINDINGS: The breasts are heterogeneously dense, which may obscure small masses (ACR BI-RADS breast composition Category c). Grouped coarse heterogeneous calcifications in the upper outer quadrant not significantly changed from prior magnification views. There is an irregular asymmetry with questioned architectural distortion in the superior left breast on MLO view localizing slightly laterally have far posterior depth. No suspicious other abnormal findings. Targeted color Doppler ultrasound scanning from 11-3 o'clock in the upper central upper outer breast posterior and anterior depth demonstrate an irregular solid mass at 2:00 8 cm from the nipple measuring 9 x 6 x 9 mm correlating with the irregular asymmetry on mammography with distortion. US/US breast LT limited mamm only IMPRESSION: 1. Solid irregular mass at 2:00 8 cm from the nipple. Recommend histology with ultrasound-guided core needle biopsy at this time. The findings and recommendations were discussed with the patient the procedure will be scheduled. The patient left before left CC L images could be performed and declined at this time. X CCL of the left breast is recommended when the patient has for ultrasound biopsy. 2. Grouped coarse heterogeneous calcifications in the upper outer quadrant stable from prior magnification views. Management will be pending biopsy of the above mass. 3. Patient has heterogeneous fibroglandular breast tissue in a suspicious left breast mass. Breast MRI should be considered for further evaluation after the biopsy. Breast MRI would need to be ordered by the patient's providing clinician. ASSESSMENT: BI-RADS BI-RADS 4 - Suspicious finding RECOMMENDATION: Biopsy recommended Results were discussed with the patient at time of visit. Electronically signed by: Elda Graham DO 10/15/2024 02:14 PM EDT RP Dictated By: Elda Graham DO Signed By: <Electronically signed by Elda Graham DO in OV> 10/15/24 1414 DD/ 1322 TD/TT: 10/15/24 1358 Clinical Resource Nurse: Procedure Note Donotuseinterpreter, Image - 10/16/2024 [facility] [address] [place], [place] [address] Ultrasound Report Signed Patient: Delilah SevillaMR#: [id number] 39 : 1955cct:[id number] Age/Sex: 69 / FADM Date: 10/15/24 Loc: HO.MAMMO Attending Dr: Cristy Monet MD Ordering Physician: Cristy Monet MD Date of Service: 10/15/24 Procedure(s): US breast LT limited mamm only Accession Number(s): [id number] cc: Cristy Monet MD EXAMINATION: MM DIAGNOSTIC DIGITAL BREAST TOMOSYNTHESIS, LEFT Left Limited ultrasound. CLINICAL INFORMATION: Follow-up for grouped calcifications in the upper outer left breast initiated October 2023.. COMPARISON: Mammography: Priors on PACS. TECHNIQUE: Digital breast tomosynthesis is performed in both the craniocaudal and mediolateral oblique views along with computer-aided detection (CAD). Synthesized 2D images are generated from the tomosynthesis. FINDINGS: The breasts are heterogeneously dense, which may obscure small masses (ACR BI-RADS breast composition Category c). Grouped coarse heterogeneous calcifications in the upper outer quadrant not significantly changed from prior magnification views. There is an irregular asymmetry with questioned architectural distortion in the superior left breast on MLO view localizing slightly laterally have far posterior depth. No suspicious other abnormal findings. Targeted color Doppler ultrasound scanning from 11-3 o'clock in the upper central upper outer breast posterior and anterior depth demonstrate an irregular solid mass at 2:00 8 cm from the nipple measuring 9 x 6 x 9 mm correlating with the irregular asymmetry on mammography with distortion. US/US breast LT limited mamm only IMPRESSION: 1. Solid irregular mass at 2:00 8 cm from the nipple. Recommend histology with ultrasound-guided core needle biopsy at this time. The findings and recommendations were discussed with the patient the procedure will be scheduled. The patient left before left CC L images could be performed and declined at this time. X CCL of the left breast is recommended when the patient has for ultrasound biopsy. 2. Grouped coarse heterogeneous calcifications in the upper outer quadrant stable from prior magnification views. Management will be pending biopsy of the above mass. 3. Patient has heterogeneous fibroglandular breast tissue in a suspicious left breast mass. Breast MRI should be considered for further evaluation after the biopsy. Breast MRI would need to be ordered by the patient's providing clinician. ASSESSMENT: BI-RADS BI-RADS 4 - Suspicious finding RECOMMENDATION: Biopsy recommended Results were discussed with the patient at time of visit. Electronically signed by: Elda Graham DO 10/15/2024 02:14 PM EDT Dictated By: Elda Graham DO Signed By: <Electronically signed by Elda Graham DO in OV> 10/15/24 1414 DD/ 1322 TD/TT: 10/15/24 1358 Clinical Resource Nurse: us Cristy Monet MD IMG US PROCEDURES Final Result * BI Mammogram Diagnostic Tomosynthesis Left (10/15/2024 1:20 PM EDT) Anatomical Region Laterality Modality Breast Left Mammography 10/15/2024 1:20 PM EDT Narrative 10/15/2024 2:17 PM EDT [facility] [address] [place] [address] Mammography Report Signed Patient: Delilah Sevilla MR#: [id number] 39 : 1955 Acct:[id number] Age/Sex: 69 / F ADM Date: 10/15/24 Loc: HO.MAMMO Attending Dr: Cristy Monet MD Ordering Physician: Cristy Monet MD Results: 4Su spicious Finding Date of Service: 10/15/24 Follow Up: Biopsy Recommend ed Procedure(s): MM tomosynthesis diagnostic LT Accession Number(s): [id number] cc: Cristy Monet MD EXAMINATION: MM DIAGNOSTIC DIGITAL BREAST TOMOSYNTHESIS, LEFT Left Limited ultrasound. CLINICAL INFORMATION: Follow-up for grouped calcifications in the upper outer left breast initiated October 2023.. COMPARISON: Mammography: Priors on PACS. TECHNIQUE: Digital breast tomosynthesis is performed in both the craniocaudal and mediolateral oblique views along with computer-aided detection (CAD). Synthesized 2D images are generated from the tomosynthesis. FINDINGS: The breasts are heterogeneously dense, which may obscure small masses (ACR BI-RADS breast composition Category c). Grouped coarse heterogeneous calcifications in the upper outer quadrant not significantly changed from prior magnification views. There is an irregular asymmetry with questioned architectural distortion in the superior left breast on MLO view localizing slightly laterally have far posterior depth. No suspicious other abnormal findings. Targeted color Doppler ultrasound scanning from 11-3 o'clock in the upper central upper outer breast posterior and anterior depth demonstrate an irregular solid mass at 2:00 8 cm from the nipple measuring 9 x 6 x 9 mm correlating with the irregular asymmetry on mammography with distortion. MM/MM tomosynthesis diagnostic LT IMPRESSION: 1. Solid irregular mass at 2:00 8 cm from the nipple. Recommend histology with ultrasound-guided core needle biopsy at this time. The findings and recommendations were discussed with the patient the procedure will be scheduled. The patient left before left CC L images could be performed and declined at this time. X CCL of the left breast is recommended when the patient has for ultrasound biopsy. 2. Grouped coarse heterogeneous calcifications in the upper outer quadrant stable from prior magnification views. Management will be pending biopsy of the above mass. 3. Patient has heterogeneous fibroglandular breast tissue in a suspicious left breast mass. Breast MRI should be considered for further evaluation after the biopsy. Breast MRI would need to be ordered by the patient's providing clinician. ASSESSMENT: BI-RADS BI-RADS 4 - Suspicious finding RECOMMENDATION: Biopsy recommended Results were discussed with the patient at time of visit. Electronically signed by: Elda Graham DO 10/15/2024 02:14 PM EDT Dictated By: Elda Graham DO Signed By: <Electronically signed by Elda Graham DO in OV> 10/15/24 1414 DD/ 1320 TD/TT: 10/15/24 1340 Clinical Resource Nurse: Procedure Note Donotuseinterpreter, Image - 10/15/2024 [facility] [address] [place], [place] [address] Mammography Report Signed Patient: Delilah SevillaMR#: [id number] 39 : 8Acct:[id number] Age/Sex: 69 / FADM Date: 10/15/24 Loc: HO.MAMMO Attending Dr: Cristy Monet MD Ordering Physician: Cristy Monet MDResults: 4Su spicious Finding Date of Service: 10/15/24Follow Up: Biopsy Recommend ed Procedure(s): MM tomosynthesis diagnostic LT Accession Number(s): [id number] cc: Cristy Monet MD EXAMINATION: MM DIAGNOSTIC DIGITAL BREAST TOMOSYNTHESIS, LEFT Left Limited ultrasound. CLINICAL INFORMATION: Follow-up for grouped calcifications in the upper outer left breast initiated October 2023.. COMPARISON: Mammography: Priors on PACS. TECHNIQUE: Digital breast tomosynthesis is performed in both the craniocaudal and mediolateral oblique views along with computer-aided detection (CAD). Synthesized 2D images are generated from the tomosynthesis. FINDINGS: The breasts are heterogeneously dense, which may obscure small masses (ACR BI-RADS breast composition Category c). Grouped coarse heterogeneous calcifications in the upper outer quadrant not significantly changed from prior magnification views. There is an irregular asymmetry with questioned architectural distortion in the superior left breast on MLO view localizing slightly laterally have far posterior depth. No suspicious other abnormal findings. Targeted color Doppler ultrasound scanning from 11-3 o'clock in the upper central upper outer breast posterior and anterior depth demonstrate an irregular solid mass at 2:00 8 cm from the nipple measuring 9 x 6 x 9 mm correlating with the irregular asymmetry on mammography with distortion. MM/MM tomosynthesis diagnostic LT IMPRESSION: 1. Solid irregular mass at 2:00 8 cm from the nipple. Recommend histology with ultrasound-guided core needle biopsy at this time. The findings and recommendations were discussed with the patient the procedure will be scheduled. The patient left before left CC L images could be performed and declined at this time. X CCL of the left breast is recommended when the patient has for ultrasound biopsy. 2. Grouped coarse heterogeneous calcifications in the upper outer quadrant stable from prior magnification views. Management will be pending biopsy of the above mass. 3. Patient has heterogeneous fibroglandular breast tissue in a suspicious left breast mass. Breast MRI should be considered for further evaluation after the biopsy. Breast MRI would need to be ordered by the patient's providing clinician. ASSESSMENT: BI-RADS BI-RADS 4 - Suspicious finding RECOMMENDATION: Biopsy recommended Results were discussed with the patient at time of visit. Electronically signed by: Elda Graham DO 10/15/2024 02:14 PM EDT RP Workstation: [employer] Dictated By: Elda Graham DO Signed By: <Electronically signed by Elda Graham DO in OV> 10/15/24 1414 DD/ 1320 TD/TT: 10/15/24 1340 Clinical Resource Nurse: us Cristy Monet MD IMG BI PROCEDURES Final Result * US RENAL DOPPLER (10/01/2024 1:12 PM EDT) Anatomical Region Laterality Modality Abdomen Ultrasound 10/01/2024 1:12 PM EDT Narrative 10/01/2024 1:13 PM EDT [place] [address] Ultrasound Report Signed Patient: Delilah Sevilla MR#: [id number] 39 : 1955 Acct:[id number] Age/Sex: 68 / F ADM Date: 10/01/24 Loc: HO.US Attending Dr: Cristy Monet MD Ordering Physician: Cristy Monet MD Date of Service: 10/01/24 Procedure(s): US renal doppler Accession Number(s): [id number] cc: Cristy Monet MD CLINICAL HISTORY: resistent [...] signed by Piotr Castillo MD in OV> 10/01/241312 DD/ 11 TD/TT: 10/01/241311 Clinical Resource Nurse: Procedure Note Donotuseinterpreter, Image - 10/01/2024 [place] [address] Ultrasound Report Signed Patient: Ai Sevilla#: [id number] 39 : 8Acct:[id number] Age/Sex: 68 / FADM Date: 10/01/24 Loc: HO.US Attending Dr: Cristy Monet MD Ordering Physician: Cristy Monet MD Date of Service: 10/01/24 Procedure(s): US renal doppler Accession Number(s): [id number] cc: Cristy Monet MD CLINICAL HISTORY: resistent [...] Castillo MD on 10/01/2024 13:12:06 Dictated By: Poitr Castillo MD Signed By: <Electronically signed by Piotr Castillo MD in OV> 10/01/24 1313 DD/ 11 TD/TT: 10/01/241311 Clinical Resource Nurse: us Cristy Monet MD IMG US PROCEDURES Final Result * (ABNORMAL) Basic Metabolic Panel (08/15/2024 3:00 PM EDT) Only the most recent of2 resultswithin the time period is included. Sodium 134(L) 135 - 145 mmol/L [facility] Potassium 3.4 3.3 - 5.1 mmol/L [facility] Chloride 97 96 - 108 mmol/L [facility] Carbon Dioxide 28 22 - 29 mmol/L [facility] Anion Gap 12 12 - 20 [facility] Urea Nitrogen (BUN) 39(H) 9 - 16 mg/dL [facility] Creatinine, Serum 1.75(H) 0.5 - 1.4 mg/dL [facility] Creatinine Clr Calc Pharmacy 26.1 [facility] Comment:Provided height and weight: 160.02 cm,57.606 kg.eGFR (calculated from the MDRD study equation) and eCrCl(calculated from the Cockcroft-Gault equation) are based ondifferent parameters and may not yield comparable results.If eCrCl result is absurd, please check patient'sheight/weight. Estimated Glomerular Filt Rate 29 [facility] Comment:Chronic Kidney Disea se: Estimated GFR < 60 mL/min/1.79k9Wdtlgy Kidney Disease: Estimated GFR < 15 mL/min/1.73m2 Glucose 83 60 - 115 mg/dL [facility] Calcium 9.1 8.4 - 10.2 mg/dL [facility] 08/15/2024 3:00 PM EDT 08/15/2024 3:07 PM EDT us Generic External Data Provider LAB BLOOD ORDERAB LES Final Result [facility] [address] [place] [address] [phone] * (ABNORMAL) Urinalysis, Complete, with Reflex to Culture (08/15/2024 12:20 PM EDT) Color Urine Yellow [facility] Appearance Urine Clear [facility] PH 5.5 5.0 - 9.0 [facility] Glucose Urine UA Negative Negative mg/dL [facility] Urine Blood Small (1+)(A) Negative [facility] Specific [place] - Urine 1.015 1.005 - 1.025 [facility] Urine Protein 30 (1+)(A) Neg-Trace mg/dL [facility] Urine Ketones Trace Negative mg/dL [facility] Nitrite Urine Negative Negative [facility] Leukocyte Esterase Urine Negative Negative [facility] RBC Urine 0-2 0 - 2 /HPF [facility] Urine WBC 0-5 0 - 5 /HPF [facility] Urine Squamous Epithelial Cell 3-5 0 - 2 /HPF [facility] Urine Bacteria None Seen None Seen [facility] Hyaline Casts, Urine 3-5 0 - 2 /LPF [facility] 08/15/2024 12:2 0 PM EDT 08/15/2024 12:22 PM EDT Narrative [facility] - 08/15/2024 12:44 PM EDT Urine, Clean Catch us Generic External Data Provider LAB URINE ORDERAB LES Final Result Performing Organization Address City/State/[facility] Co de Phone Number [facility] [address] [place] [phone] * CT Abdomen Pelvis w/o Contrast (08/15/2024 10:22 AM EDT) Anatomical Region Laterality Modality Body, Pelvis, Abdomen Computed T omography 08/15/2024 10:2 2 AM EDT Narrative 08/15/2024 12:00 PM EDT [address] [address] [address] Scan Report Signed Patient: Delilah Sevilla MR#: [id number] 39 : 1955 Acct:[id number] Age/Sex: 68 / F ADM Date: 08/15/24 Loc: HO.ED Attending Dr: Ordering Physician: Araceli Morris Date of Service: 08/15/24 Procedure(s): CT abdomen pelvis wo IV con Accession Number(s): [id number] cc: Cristy Monet MD; Araceli Morris Report Number: [id number]: Total DLP = 318.00 mGy-cm EXAMINATION: CT [...] 08/15/24 1158 DD/ 1022 TD/TT: 08/15/24 1135 Clinical Resource Nurse: Procedure Note Donotuseinterpreter, Image - 08/15/[address] [place] [address] [address] Scan Report Signed Patient: Delilah SevillaMR#: [id number] 39 : 1955cct:[id number] Age/Sex: 68 / FADM Date: 08/15/24 Loc: .ED Attending Dr: Ordering Physician: Araceli Morris Date of Service: 08/15/24 Procedure(s): CT abdomen pelvis wo IV con Accession Number(s): [id number] cc: Cristy Monet MD; Araceli Morris Report Number: [id number]: Total DLP = 318.00 mGy-cm EXAMINATION: CT [...] 08/15/24 1158 DD/ 1022 TD/TT: 08/15/24 1135 Clinical Resource Nurse: [facility] External Provider IMG CT PROCEDURES Final Result * High Sensitivity Troponin I (08/15/2024 9:42 AM EDT) [facility] TROPONIN I HIGH SENSITIVITY 13.7 <3.5 - 17.0 ng/L [facility] Comment:The Cade high sens itivity Troponin-I results should beused in conjunction with other diagnostic information suchas ECG, clinical observations and information, and patientsymptoms to aid in the diagnosis of MD. 08/15/2024 9:42 AM EDT 08/15/2024 9:45 AM EDT Generic External Data Provider LAB BLOOD ORDERAB LES Final Result [facility] [address] [place] [phone] * (ABNORMAL) CBC auto differential (08/15/2024 9:42 AM EDT) [facility] White Blood Count 14.0(H) 4.8 - 10.8 X10*3/uL [facility] Red Blood Count 4.71 4.20 - 5.50 X10*6/uL [facility] Hemoglobin 14.9 12.0 - 16.0 g/dl [facility] Hematocrit 42.1 37.0 - 47.0 % [facility] Mean Corpuscular Volume 89.4 80.0 - 98.0 fL [facility] Mean Corpuscular Hemoglobin 31.6 27.0 - 33.0 pg [facility] Mean Corpuscular HGB Conc 35.4(H) 31.0 - 35.0 g/dl [facility] [facility] Red Cell Distribution Width 12.1 11.0 - 16.0 % [facility] Platelet Count 346 160 - 400 X10*3/uL [facility] Mean Platelet Volume 8.6(L) 9.4 - 12.3 fL [facility] Neutrophils Percent Auto 75.0(H) 45 - 73 % [facility] Imm Gran Pct Auto 0.3 0.0 - 0.4 % [facility] Lymphocytes Percent Auto 15.6(L) 20 - 40 % [facility] Monocytes Percent Auto 8.7 2 - 11 % [facility] Eosinophils Percent Auto 0.0 0 - 4 % [facility] Basophils Percent Auto 0.4 0 - 2 % [facility] NRBC Pct Auto 0.0 0.0 - 0.2 /100WBC [facility] Neutrophils Absolute Auto 10.5(H) 2.0 - 8.3 x10*3/uL [facility] Imm Gran Abs Auto 0.04(H) 0.00 - 0.03 X10*3/uL [facility] Lymphocytes Absolute Auto 2.2 1.2 - 4.9 X10*3/uL [facility] Monocytes Absolute Auto 1.2 0.1 - 1.2 X10*3/uL [facility] Eosinophils Absolute Auto 0.0 0.0 - 0.4 X10*3/uL [facility] Basophils Absolute Auto 0.1 0.0 - 0.2 X10*3/uL [facility] NRBC Abs Auto 0.000 0.0 - 0.012 X10*3/uL [facility] 08/15/2024 9:42 AM EDT 08/15/2024 9:45 AM EDT us Generic External Data Provider LAB BLOOD ORDERAB LES Final Result [facility] [address], [place] [phone] * Lipase (08/15/2024 9:42 AM EDT) Lipase 76 8 - 78 U/L [facility] 08/15/2024 9:42 AM EDT 08/15/2024 9:45 AM EDT us Generic External Data Provider LAB BLOOD ORDERAB LES Final Result Performing Organization Address [facility]/ZIP Co de Phone Number [facility] [address] [place] [phone] * (ABNORMAL) Hepatic Function Panel (08/15/2024 9:42 AM EDT) Bilirubin, Total 0.9 0.0 - 1.0 mg/dL [facility] Bilirubin, Direct 0.3 0.0 - 0.5 mg/dL [facility] Aspartate Amino Transferase 40(H) 5 - 31 U/L [facility] Alanine Aminotransferase 29 0 - 31 U/L [facility] Total Protein 8.5(H) 6.5 - 8.0 g/dL [facility] Albumin Level 5.1(H) 3.5 - 5.0 g/dL [facility] Alkaline Phosphatase 114 39 - 117 U/L [facility] 08/15/2024 9:42 AM EDT 08/15/2024 9:45 AM EDT us Generic External Data Provider LAB BLOOD ORDERAB LES Final Result Performing Organization Address [facility] Co de Phone Number [facility] [address] [place] [phone] * (ABNORMAL) Hm Colonoscopy (12/25/2023) Colonoscopy Abnormal( A) Normal [facility] Comment:TA + hyperplastic po lyps us Cristy Monet MD HEALTH MAINTENANCE Final Result Performing Organization Address [facility]/ZIP Co de Phone Number [facility] [address] [place] [phone] * (ABNORMAL) Lipid Panel, Standard (12/19/2023 9:22 AM EDT) Triglycerides 79 <150 mg/dL [facility] Comment:Desirable Triglyceri de: less than 150 mg/dLBorderline High Triglyceride 150-199 mg/dLHigh Triglyceride: 200-499 mg/dLVery High Triglyceride: greater than or equal to 5OO mg/dL Cholesterol 224(H) <200 mg/dL [facility] Comment:Desirable Cholestero l: less than 200 mg/dLBorderline High Cholesterol: 200-239 mg/dLHigh Cholesterol: greater than 239 mg/dL LDL Cholesterol Calculated 117(H) <100 mg/dL [facility] Comment:Desirable LDL: less than 100 mg/dLNear Optimal/Above Optimal LDL: 110- 129 mg/dLBorderline High LDL: 130-159 mg/dLHigh LDL: 160-189 mg/dLVery High LDL: greater than or equal to 190 mg/dL HDL Cholesterol 92 >40 mg/dL [facility] Comment:Desirable HDL: great er than 40 mg/dL Note: This HDL assay may give artificially low results in patients with liver disease. 12/19/2023 9:22 AM EDT 12/19/2023 11:43 AM EDT us Cristy Monet MD LAB BLOOD ORDERABLES Fin al Result [facility] [address] [place] [address] [phone] * Hepatitis Panel, General (12/04/2023 9:36 AM EDT) Hepatitis A IgM Nonreactive Nonreactive [facility] Comment:IgM antibodies to MARTINES V not detected; does not exclude earlyacute or recovered HAV infection. ~Hepatitis B Surface Antibody REACTIVE Nonreactive [facility] Comment:REACTIVE: > 11.99 mI U/mL Hepatitis B Core Antibody Nonreactive Nonreactive [facility] Hepatitis C Antibody Nonreactive Nonreactive [facility] Comment:Antibodies to HCV no t detected; does not exclude early acuteHCV infection. Hepatitis B Surface Ag Negative Negative [facility] Blood 12/04/2023 9:36 AM EDT 12/04/2023 11:01 AM EDT us Cristy Monet MD LAB BLOOD ORDERABLES Fin al Result [facility] [address] [place] [phone] [phone] * (ABNORMAL) ThinPrep?? Imaging Pap Refl HPV mRNA(if ASCUS,ASC- H,LSIL,HSIL,TWILA)Refl Genotype (10/18/2023 10:43 AM EDT) HPV nRNA E6/E7 Detected(A ) Not Detected [facility] Comment:Methodology: Transcr iption-Mediated AmplificationThis assay detects E6/E7 viral messenger RNA (mRNA) from 14high-risk HPV types (16,18,31,33,35,39,45,51,52,56,58,59,66,68).Cervical sources are required for HPV testing.If a vaginal source from a patient who has had atotal hysterectomy with removal of cervix wassubmitted, please contact the testing laboratoryfor alternative testing options.For additional information, please refer [email or web address]/faq/[email or web address](This link if provided for information/educational purposes only.)THIS TEST WAS PERFORMED AT:[facility] [place] [phone] MEDINA MD HPV 16,18/45 NOT DETECTED NOT DETECTED [facility] Comment:Methodology: Transcr iption Mediated AmplificationCervical sources are required for HPV testing.If a vaginal source from a patient who has had atotal hysterectomy with removal of cervix wassubmitted, please contact the testing laboratoryfor alternative testing options.THIS TEST WAS PERFORMED AT:[facility] [place] [phone] MEDINA MD SOURCE: SEE NOTE [facility] Comment:None given Report Status: TNP [facility] Clinical Information: SEE NOTE [facility] Comment:None given LMP: SEE NOTE [facility] Comment:NONE GIVEN Prev. PAP: SEE NOTE [facility] Comment:NONE GIVEN Prev. BX: SEE NOTE [facility] Comment:NONE GIVEN Statement Of Adequacy: SEE NOTE [facility] Comment:Satisfactory for naheed luation.Endocervical/transformation zone componentpresent. General Categorization: SEE NOTE(A) [facility] Comment:Cytology Results: Ep ithelial Cell Abnormality Interpretation/Result: SEE NOTE(A) [facility] Comment:Atypical Squamous Ce lls of UndeterminedSignificance (ASC-US) Cytology Comment SEE NOTE [facility] Comment:This Pap test has be en evaluated with computerassisted technology. Executive Housekeeper: SEE NOTE [facility] Comment:DCR, CT(ASCP)CT scre ening location: [place] [address] Review Executive Housekeeper: [facility] Pathologist SEE NOTE [facility] Comment:Valerio Romero M.D./M.S .,Board Certified in Anatomic Pathology andBoard Eligible Cytopathology(electronic signature)Consulting PathologistCorrigan Mental Health Center Pathology[address] [place] [address] [phone] PAP Infection [facility] See Note SEE NOTE [facility] Comment:EXPLANATORY NOTE:The Pap is a screening test for cervical cancer. It isnot a diagnostic test and is subject to false negativeand false positive results. It is most reliable when asatisfactory sample, regularly obtained, is submittedwith relevant clinical findings and history, and whenthe Pap result is evaluated along with historic andcurrent clinical information.THIS TEST WAS PERFORMED AT:[facility] AN[address] PATH[address] [place] [phone] REYEZ MD 10/18/2023 10:4 3 AM EDT 10/18/2023 4:30 PM EDT Narrative [facility] - 10/31/2023 11:52 AM EDT SEE SCANNED RESULTS IN EMR us Cristy Monet MD LAB CYTOLOGY ORDERABLES Final Result [facility] [address] [place] [phone] from Last 3 Months or Most Recently Relevant to Health Maintenance Insurance [facility] OPTIONS (HMO D-SNP) [facility] Care Teams Modeling Instructor Relationship Specialty Start Date End Date Cristy Monet MD [address] [place], [place] PCP - General Family Medicine 12/12/19 Sung Rand, DaeD [address], [place] Pharmacist Internal Medicine 05/27/24
--- OUTSIDE RECORDS SUMMARY | 2024-11-04 10:36 | XMS_ITS | Encounter Summary ---
Author Organization [employer] Address [address] [facility] [address]t [place] [address] Care Team Providers Care Concrete Stone Fabricator Name Role Phone Cristy Monet MD Primary Care Provider + Sung Rand PharmD Unavailable [phone] Reason for Visit * Reason Comments Med Refill Encounter Details Date Type Department Care Team ([facility] st Contact Info) Description 01/14/2024 Refill [facility] [address] [place], [place] [phone] Cristy Monet MD [address] [place], [place] [phone] Social History Tobacco Use Types Packs/Day Years [...] Description 11/11/2024 10:30 AM EDT Office Visit [facility] [address] [place] [phone] Cristy Monet MD [address] [place] [phone] 12/11/2024 11:00 AM EDT Telemedicine [facility] [address] [place] [address] Sung Rand PharmD [address] [place] [address] 03/16/2025 11:00 AM EST Office Visit [facility] OPTOMETRY [address] [place] [address] [place] Colbert, OD [address] [place] [address] documented as of this encounter Visit Diagnoses Not on filedocumented in this encounter Care Teams Concrete Stone Fabricator Relationship Specialty Start Date End Date Cristy Monet MD [address] [place] [address] PCP - General Family Medicine 12/12/19 Sung Rand, DaeD [address] [place] [phone] Pharmacist Internal Medicine 05/27/24 documented as of this encounter
--- OUTSIDE RECORDS SUMMARY | 2024-11-04 10:36 | XMS_ITS | Encounter Summary ---
Author Organization [employer] Address [address] [facility] [address] [place] [address] Care Team Providers Care Gauge Operator Name Role Phone Cristy Monet MD Primary Care Provider + Sung Rand PharmD Unavailable [phone] Reason for Visit * Reason Comments Med Refill Encounter Details Date Type Department Care Team (Late st Contact Info) Description 02/03/2024 Refill [facility] [address] [place], [place] [phone] Niru Oakes MD [address] [place] [address] Resistant hypertension Social History Tobacco Use Types [...] housing situation today? I have pool sing 01/01/[address] you li [...] Description 11/11/2024 10:30 AM EDT Office Visit [facility] [address] [place] [address] Cristy Monet MD [address] [place] [address] 12/11/2024 11:00 AM EDT Telemedicine [facility] [address] [place] [address] Sung Rand, Bill [address] [place] [address] 03/16/2025 11:00 AM EST Office Visit [facility] OPTOMETRY [address] [place] [address] Filemon, [place], OD [address] [place] [address] documented as of this encounter Visit Diagnoses Diagnosis Resistant hypertension documented in this encounter Care Teams Gauge Operator Relationship Specialty Start Date End Date Cristy Monet MD [address] [place] [address] PCP - General Family Medicine 12/12/19 Sung Rand, PharmD [address] [place] [address] Pharmacist Internal Medicine 05/27/24 documented as of this encounter
[2024-11-04 11:15] LABS: Hematocrit 35.6 % (37.0-47.0); Hemoglobin 12.2 g/dl (12.0-16.0)
[2024-11-04 11:55] LABS: Anion Gap 12 (12-20); Blood Urea Nitrogen 13 mg/dL (9-16); Calcium 9.1 mg/dL (8.4-10.2); Carbon Dioxide 25 mmol/L (22-29); Chloride 102 mmol/L (96-108); Estimated Glomerular Filt Rate > 60; Potassium 4.3 mmol/L (3.3-5.1); Sodium 135 mmol/L (135-145)
== END 2024-11-04 09:33 | disposition home or self-care (01) ==
LOC: HO.HHCL 09:32
PROVIDERS: PCP Internal Medicine; Visit Provider Internal Medicine
DX: I10 Essential (primary) hypertension (principal); N17.9 Acute kidney failure, unspecified
CPT/HCPCS: 80048; 85014; 85018

== ENCOUNTER 2024-11-05 08:17 | Outpatient (AMB) | payer OTHER, SELFPAY ==
--- NOTE | 2024-11-05 08:33 | A.OFFVIS_ITS ---
Vital Signs 11/05/24 08:37 Height 5 ft 3 in Weight 118 lb BMI 20.9 BP 150/81 H Blood Pressure Location Rt brachial Position Sitting Pulse 62 Intake Visit Reasons: US BX (L) breast 2 O'Clock density Intake Note: Patient here today for US bx CONSULT Left breast, solid irregular mass at 2:00 8 cm from the nipple. Patient c/o: does not feel lumps, denies breast tenderness, itch, nipple discharge. Reports sister w/hx of breast CA. Lt breast US and MM: 10-15-2024 Biopsy: 11-05-24 @ 9am Publications Editor Required: Yes Publications Editor Name: Parveen #[id number] Accompanied by: Self / Same As Patient Allergies No Known Allergies Allergy (Mild, Verified 11/05/24 08:35) HPI HPI US BX (L) breast 2 O'Clock density: Details: [age] year female referred for a left breast mass. She had a mammogram showing a mass in the left breast at the 2 o'clock position. She was brought in for diagnostic ultrasound and mammogram for the left breast which showed a solid irregular mass at the 2 o'clock position, 8 cm from the nipple. An ultrasound biopsy was recommended by the radiologist There were also grouped coarse heterogenous calcifications in the upper outer quadrant which have been stable compared to prior magnification views. She denies any palpable mass. Her menarche was at the age of 14. Her 1st was at age of 19. She had 3 pregnancies. She had menopause at the age of 50. She says her sister had breast cancer at the age of 38. She smokes half a pack a day and has done so for most of her life. [facility] Medical History (Updated 11/05/24 @ 08:48 by Leo Sevilla MD) Family history of breast cancer Left breast mass Long-term use of Plaquenil Seronegative rheumatoid arthritis Positive TB test Encounter before starting medication Smoker unmotivated to quit Inflammatory arthritis Bilateral hand swelling Joint pain in both hands High blood cholesterol HTN (hypertension) Surgical History Hx of esophagogastroduodenoscopy Hx of colonoscopy Social History Household Members Other:: lives alone Are you a primary healthcare economics consultant to a significant other at home: No Do you presently have visiting nurse or other home services: No Alcohol intake: current Alcohol intake frequency: a few times a week Alcohol type: beer Patient Tobacco Use Status: Current everyday Tobacco user Tobacco use type: Cigarette Cigarette Packs Per Day: 1 Cigarettes Per Day: 6 Second Hand Smoke Exposure: No Substance Use Type: Marijuana Review of Systems Const Denies chills and Denies fever(s) Card Denies chest pain, Denies dyspnea and Denies dyspnea on exertion Resp Denies cough, Denies dyspnea and Denies dyspnea on exertion GI Denies hematochezia and Denies change in bowel habits Denies hematuria Musc Denies back pain and Denies limited range of motion Neuro Denies focal weakness and Denies convulsions Psych Denies depression and Denies mood swings Physical Exam Const General: comfortable and no acute distress Orientation/consciousness: patient oriented x3 Neck Neck: Yes no lymphadenopathy Chest Other: No palpable breast masses, no nipple or skin changes, no axillary lymphadenopathy Resp Auscultation: clear to auscultation bilaterally Cardio Rhythm: regular rhythm GI Palpation (GI): Soft to palpation, nontender and no guarding Neuro General: patient oriented x3 Assessment & Plan Assessment & Plan (1) Left breast mass: Code(s): N63.20 - Unspecified lump in the left breast, unspecified quadrant Category: Medical Plan: She has a mammogram and ultrasound showing a solid irregular mass at the 2 o'clock position of the left breast. Ultrasound-guided biopsy has been by the radiologist. I explained to her the technique of this procedure. I will see her in the office next week to discuss the path report A breast MRI has also been recommended by the radiologist after her biopsy in view of the heterogenous fibroglandular breast tissue on the left breast. (2) Family history of breast cancer: Code(s): Z80.3 - Family history of malignant neoplasm of breast Category: Medical Plan: She says her sister had breast cancer at the age of 38. She will therefore qualify for genetic testing. I will discuss this with her after her biopsy. Orders: Orders US breast ndl core biopsy LT 11/04/24 N63.20 - Unspecified lump in the left breast, unspecified quadrant Coding Level of Care Code New Pt Level 3 (18284) Diagnoses Left breast mass N63.20 Family history of breast cancer Z80.3
[2024-11-05 08:37] VITALS: BP 150/81; PULSE 62; BMI 20.9
--- OUTSIDE RECORDS SUMMARY | 2024-11-05 08:44 | XMS_ITS | Encounter Summary ---
Author Organization [employer] Address [address] [facility] 7t [place] [address] Care Team Providers Care Pipe Organ Builder Name Role Phone Cristy Monet MD Primary Care Provider + Sung Rand PharmD Unavailable [phone] Encounter Details Date Type Department Care Team ([facility] Contact Info) Description 09/13/2022 Orders Only [facility] MEDICINE [address] [place] [address] [phone] Cristy Monet MD [address] [place], [place] [phone] Hyperkalemia (Primary Dx); Hypercalcemia Social History Tobacco [...] Upcoming Encounters Date Type Department Care Team ([facility] Contact Info) Description 11/11/2024 10:30 AM EDT Office Visit [facility]INE [address] [place] [address] [phone] Cristy Monet MD [address] [place], [place] [phone] 12/11/2024 11:00 AM EDT Telemedicine [facility] [address] [place] [address] Sung Rand, DaeD [address] [place] [address] 03/16/2025 11:00 AM EST Office Visit [facility] OPTOMETRY [address] [place], [place] [phone] Filemon, [place], OD [address] [place], [place] [phone] documented as of this encounter Procedures Procedure Name Priority Date/Time Associated Diagnosis Comments BASIC METABOLIC PANEL Routine 09/25/2022 8:41 AM EDT Hyperkalemia Hypercalcemia documented in this encounter Results * (ABNORMAL) Basic Metabolic Panel (09/25/2022 8:41 AM EDT) Sodium 138 135 - 145 mmol/L [facility] Potassium 5.0 3.3 - 5.1 mmol/L [facility] Chloride 102 96 - 108 mmol/L [facility] Carbon Dioxide 30(H) 22 - 29 mmol/L [facility] Anion Gap 11(L) 12 - 20 [facility] Urea Nitrogen (BUN) 15 9 - 16 mg/dL [facility] Creatinine, Serum 0.78 0.5 - 1.4 mg/dL [facility] Estimated Glomerular Filt Rate >60 [facility] Comment:NOTE: For -Am erican individuals, multiply the result by 1.210.Chronic Kidney Disease: Estimated GFR < 60 mL/min/1.35e2Ffgppd Kidney Disease: Estimated GFR < 15 mL/min/1.73m2 Glucose 96 60 - 115 mg/dL [facility] Calcium 9.6 8.4 - 10.2 mg/dL [facility] Blood Venous blood specimen / Unknown 09/25/2022 8:41 AM EDT 09/25/2022 11:03 AM EDT Cristy Monet MD LAB BLOOD ORDERABLES Fin al Result [facility] [address] [place] [address] [phone] documented in this encounter Visit Diagnoses Diagnosis Hyperkalemia- Primary Hyperpotassemia Hypercalcemia documented in this encounter Care Teams Pipe Organ Builder Relationship Specialty Start Date End Date Cristy Monet MD [address] [place] [address] PCP - General Family Medicine 12/12/19 Sung Rand, DaeD [address] [place] [address] Pharmacist Internal Medicine 05/27/24 documented as of this encounter
--- OUTSIDE RECORDS SUMMARY | 2024-11-05 08:44 | XMS_ITS | Encounter Summary ---
Author Organization [employer] Address [address] [facility] 7t [place] [address] Care Team Providers Care Net Developer Architect Name Role Phone Cristy Monet MD Primary Care Provider + Sung Rand PharmD Unavailable [phone] Reason for Visit * Reason Comments Med Refill Encounter Details Date Type Department Care Team ([facility] st Contact Info) Description 01/14/2024 Refill [facility] MEDICINE [address] [place], [place] [phone] Cristy Monet MD [address] [place], [place] [phone] Social History Tobacco Use Types Packs/Day Years [...] Description 11/11/2024 10:30 AM EDT Office Visit [facility] MEDICINE [address] [place] [phone] Cristy Monet MD [address] [place] [address] 12/11/2024 11:00 AM EDT Telemedicine [facility] MEDICINE [address] [place] [phone] Sung Rand PharmD [address] [place] [address] 03/16/2025 11:00 AM EST Office Visit [facility] OPTOMETRY [address] [place] [address] [place] Colbert, OD [address] [place] [address] documented as of this encounter Visit Diagnoses Not on filedocumented in this encounter Care Teams Net Developer Architect Relationship Specialty Start Date End Date Cristy Monet MD [address] [place] [phone] PCP - General Family Medicine 12/12/19 Sung Rand, DaeD [address] [place] [phone] Pharmacist Internal Medicine 05/27/24 documented as of this encounter
--- OUTSIDE RECORDS SUMMARY | 2024-11-05 08:44 | XMS_ITS | Encounter Summary ---
Author Organization [employer] Address [address] [facility] [address]t [place] [address] Care Team Providers Care Administrative Assistant Receptionist Name Role Phone Cristy Monet MD Primary Care Provider + Sung Rand PharmD Unavailable Encounter Details Date Type Department Care Team (Late st Contact Info) Description 06/09/2024 Orders Only [facility] [address] [place], [place] [phone] ProviderIda MD Social History Tobacco Use Types [...] Description 11/11/2024 10:30 AM EDT Office Visit [facility] [address] [place] [address] Cristy Monet MD [address] [place] [address] 12/11/2024 11:00 AM EDT Telemedicine [facility] [address] [place] [address] Sung Rand, PharmD [address] [place] [address] 03/16/2025 11:00 AM EST Office Visit [facility] OPTOMETRY [address] [place] [address] [place] Colbert, OD [address] [place] [address] documented as of this encounter Procedures Procedure Name Priority Date/Time Associated Diagnosis Comments BIOPSY CERVIX Routine 05/02/2024 11:47 AM EST documented in this encounter Results * Biopsy cervix (05/02/2024 11:47 AM EST) us Historical Provider IN CLINIC/BEDSIDE ORDERAB LES Final Result documented in this encounter Visit Diagnoses Not on filedocumented in this encounter Care Teams Administrative Assistant Receptionist Relationship Specialty Start Date End Date Cristy Monet MD [address] [place] [address] PCP - General Family Medicine 12/12/19 Sung Rand, Bill [address] [place] [address] Pharmacist Internal Medicine 05/27/24 documented as of this encounter
--- OUTSIDE RECORDS SUMMARY | 2024-11-05 08:44 | XMS_ITS | Clinical Summary ---
Author Organization [employer] Address [address] [facility] [address] [place] [address] Care Team Providers Care Life Consultant Name Role Phone Cristy Monet MD Primary Care Provider + Sung Rand PharmD Unavailable [phone] Allergies Active Allergy Reactions Criticality Noted Date [...] wheezing. 18 g 3 4 Active Umeclidinium [place] (Incruse Ellipta) 62.5 MCG/ACT aerosol powder Inhale [...] this year, borders were negative Follow-up with TIME STAMP ASSEMBLER in 6 months Memory impairment 07/14/2024 Assessment & Plan (08/22/2024 11:00 AM EDT): Doing well on aspirin 81 mg, tolerates well. Advised to optimal control risk factors as mentioned at previous visit. His CT scan of the brain is normal, not showing microvascular changes. She has a EXCAVATION LABORER to help her with ADLs and remind [...] twice daily Will check regarding referral to pie crimping machine operator due to resistant hypertension (8 was done [...] seems to be better controlled, seen by athletic coach Assessment & Plan (06/27/2023 10:39 AM EDT): - seen by rheumatology, reminded her to get labs done today and f/u with athletic coach Assessment & Plan (06/27/2023 9:57 AM EDT): [...] asymptomatic I will refer to rheumatology in [facility] to improve compliance w/ appointment Assessment & [...] Type Department Care Team Description 10/27/2024 Telephone [facility] [address] [place] [address] Sung Rand PharmD 10/23/2024 11:30 AM EDT Telemedicine [facility] [address] [place] [address] Sung Rand PharmD Primary hypertension (Primary Dx) 10/15/2024 Orders Only [facility] [address] [place] [address] Cristy Monet MD 10/08/2024 Telephone [facility] [address] [place] [address] Cristy Monet MD Normal imaging letter 10/08/2024 Results Follow-Up [facility] [address] [place] [address] Cristy Monet MD US RENAL DOPPLER 09/25/2024 11:30 AM EDT Telemedicine [facility] [address], [place] [address] Sung Rand PharmD Primary hypertension (Primary Dx); History of non-ST elevation myocardial infarction (NSTEMI) 09/04/2024 Refill [facility] [address] [place] [address] Cristy Monet MD 08/22/2024 10:30 AM EDT Office Visit [facility] [address] [place] [address] Cristy Monet MD HTN (hypertension), benign (Primary Dx); KATHARINE (acute kidney injury) (CMS/HCC); Substance abuse (CMS/HCC); Chronic obstructive pulmonary disease, unspecified COPD type (CMS/HCC); Memory impairment; Epigastric pain 08/22/2024 Travel 08/20/2024 Telephone [facility] [address] [place] [address] Cristy Monet MD CHART PREP 08/15/2024 Orders Only GENERIC EXTERNAL DATA DEPARTMENT Provider, Generic External Data 08/13/2024 Patient Outreach [facility] [address] [place] [address] Cristy Monet MD Pre-visit Planning (SDOH screening negative and tobacco screening negative) 08/06/2024 Telephone [place] [facility] [address] [place], [place] [phone] Cristy Monet MD 08/05/2024 Telephone [facility] [address] [place] [address] Cristy Monet MD Referral from Last 3 [...] Description 11/11/2024 10:30 AM EDT Office Visit [facility] [address] [place] [address] Cristy Monet MD [address] [place] [address] 12/11/2024 11:00 AM EDT Telemedicine [facility] [address] [place] [address] Sung Rand, PharmD [address] [place] [address] 03/16/2025 11:00 AM EST Office Visit [facility]OM[facility] [address] [place] [address] Indiana Colbert, OD [address] [place] [address] Health Maintenance Due Date Last Done Comments [...] Zoster Vaccines (2 of 2) 12/26/2022 10/31/2022 HPV/Cotest 10/30/2024 10/18/2023, 08/07/2022 Pap Smear 10/30/2024 10/18/2023, 06/07/2022, 08/07/2022, Additional history exists COVID-19 Vaccine ( - season) 2024 01/04/2021, 12/14/2020 Influenza Vaccine (#1) 2024 4, 01/12/2020, 11/21/2018, Additional history exists Diagnostic Breast Imaging 04/17/20252024, 10/15/2024, 04/15/2024, Additional history exists SDOH Screening 08/13/2025 08/13/2024 Depression Screening 08/22/2025 08/22/2024, 08/23/19 25 Tobacco Screening 08/22/2025 08/22/2024 Lipid Panel 12/18/2028 [...] Procedure Name Priority Date/Time Associated Diagnosis Comments HEMOGLOBIN + HEMATOCRIT Routine 11/04/2024 10:10 AM EDT KATHARINE (acute kidney injury) (CMS/HCC) BASIC METABOLIC PANEL Routine 11/04/2024 10:10 AM EDT HTN (hypertension), benign KATHARINE (acute kidney injury) (CMS/HCC) BI US BREAST LIMITED LEFT Routine 10/15/2024 [...] Relevant to Health Maintenance Results * (ABNORMAL) Hemoglobin and Hematocrit (11/04/2024 10:10 AM EDT) Hemoglobin 12.2 12.0 - 16.0 g/dl [facility] Hematocrit 35.6(L) 37.0 - 47.0 % [facility] Blood Venous blood specimen / Unknown 11/04/2024 10:10 AM EDT 11/04/2024 11:03 AM EDT us Cristy Monet MD LAB BLOOD ORDERABLES Fin al Result Performing Organization Address City/[facility]/ZIP Co de Phone Number [facility] [address] [place] [address] [phone] * Basic Metabolic Panel (11/04/2024 10:10 AM EDT) Only the most recent of3 resultswithin the time period is included. Sodium 135 135 - 145 mmol/L [facility] Potassium 4.3 3.3 - 5.1 mmol/L [facility] Chloride 102 96 - 108 mmol/L [facility] Carbon Dioxide 25 22 - 29 mmol/L [facility] Anion Gap 12 12 - 20 [facility] Urea Nitrogen (BUN) 13 9 - 16 mg/dL [facility] Creatinine, Serum 0.80 0.5 - 1.4 mg/dL [facility] Estimated Glomerular Filt Rate >60 [facility] Comment:Chronic Kidney Disea se: Estimated GFR < 60 mL/min/1.28v8Vhgeux Kidney Disease: Estimated GFR < 15 mL/min/1.73m2 Glucose 94 60 - 115 mg/dL [facility] Calcium 9.1 8.4 - 10.2 mg/dL [facility] Blood Venous blood specimen / Unknown 11/04/2024 10:10 AM EDT 11/04/2024 11:01 AM EDT Cristy Monet MD LAB BLOOD ORDERABLES Fin al Result Performing Organization Address City/[facility]/ZIP Co de Phone Number [facility] [address] [place] [address] [phone] * BI US Breast Limited Left (10/15/2024 1:22 PM EDT) Anatomical Region Laterality Modality Breast Left Ultrasound 10/15/2024 1:22 PM EDT Narrative 10/15/2024 2:17 PM EDT [place] [facility] [address] [place], [place] [address] Ultrasound Report Signed Patient: Delilah Sevilla MR#: [id number] 39 : 1955 Acct:[id number] Age/Sex: 69 / F ADM Date: 10/15/24 Loc: HO.MAMMO Attending Dr: Cristy Monet MD Ordering Physician: Cristy Monet MD Date of Service: 10/15/24 Procedure(s): US breast LT limited mamm only Accession Number(s): [id number] cc: Cristy Monet MD EXAMINATION: MM DIAGNOSTIC [...] 10/15/24 1414 DD/ 1322 TD/TT: 10/15/24 1358 Dye Mixer: Procedure Note Donotuseinterpreter, Image - 10/16/2024 [facility] [place] [address] Ultrasound Report Signed Patient: Delilah SevillaMR#: [id number] 39 : 8Acct:[id number] Age/Sex: 69 / FADM Date: 10/15/24 Loc: HO.MAMMO Attending Dr: Cristy Monet MD Ordering Physician: Cristy Monet MD Date of Service: 10/15/24 Procedure(s): US breast LT limited mamm only Accession Number(s): [id number] cc: Cristy Monet MD EXAMINATION: MM DIAGNOSTIC [...] 10/15/24 1414 DD/ 1322 TD/TT: 10/15/24 1358 Dye Mixer: us Cristy Monet MD IMG US PROCEDURES Final Result * BI Mammogram Diagnostic Tomosynthesis Left (10/15/2024 1:20 PM EDT) Anatomical Region Laterality Modality Breast Left Mammography 10/15/2024 1:20 PM EDT Narrative 10/15/2024 2:17 PM EDT [facility] [address] [place] [address] Mammography Report Signed Patient: Delilah Sevilla MR#: [id number] 39 : 1955 Acct:[id number] Age/Sex: 69 / F ADM Date: 10/15/24 Loc: HO.MAMMO Attending Dr: Cristy Monet MD Ordering Physician: Cristy Monet MD Results: 4Su spicious Finding Date of Service: 10/15/24 Follow Up: Biopsy Recommend ed Procedure(s): MM tomosynthesis diagnostic LT Accession Number(s): [id number] cc: Cristy Monet MD EXAMINATION: MM DIAGNOSTIC [...] 10/15/24 1414 DD/ 1320 TD/TT: 10/15/24 1340 Dye Mixer: Procedure Note Donotuseinterpreter, Image - 10/15/2024 [facility] [address] [place] [address] Mammography Report Signed Patient: Delilah SevillaMR#: [id number] 39 : 8Acct:[id number] Age/Sex: 69 / FADM Date: 10/15/24 Loc: HO.MAMMO Attending Dr: Cristy Monet MD Ordering Physician: Cristy Monet MDResults: 4Su spicious Finding Date of Service: 10/15/24Follow Up: Biopsy Recommend ed Procedure(s): MM tomosynthesis diagnostic LT Accession Number(s): [id number] cc: Cristy Monet MD EXAMINATION: MM DIAGNOSTIC [...] 10/15/24 1414 DD/ 1320 TD/TT: 10/15/24 1340 Dye Mixer: us Cristy Monet MD IMG BI PROCEDURES Final Result * US RENAL DOPPLER (10/01/2024 1:12 PM EDT) Anatomical Region Laterality Modality Abdomen Ultrasound 10/01/2024 1:12 PM EDT Narrative 10/01/2024 1:13 PM EDT [address] [address] Ultrasound Report Signed Patient: Delilah Sevilla MR#: [id number] 39 : 1955 Acct:[id number] Age/Sex: 68 / F ADM Date: 10/01/24 Loc: HO.US Attending Dr: Cristy Monet MD Ordering Physician: Cristy Monet MD Date of Service: 10/01/24 Procedure(s): US renal doppler Accession Number(s): [id number] cc: Cristy Monet MD CLINICAL HISTORY: resistent [...] 10/01/24 1313 DD/ 1312 TD/TT: 10/01/24 1312 Dye Mixer: Procedure Note Donotuseinterpreter, Image - 10/01/2024 [place] [address] Ultrasound Report Signed Patient: Ai Sevilla#: [id number] 39 : 8Acct:[id number] Age/Sex: 68 / FADM Date: 10/01/24 Loc: . Attending Dr: Cristy Monet MD Ordering Physician: Cristy Monet MD Date of Service: 10/01/24 Procedure(s): US renal doppler Accession Number(s): [id number] cc: Critsy Monet MD CLINICAL HISTORY: resistent HTN US [...] OV> 10/01/24 1313 DD/ 1312 TD/TT: 10/01/24 131 Dye Mixer: us Cristy Monet MD IMG US PROCEDURES Final Result * (ABNORMAL) Urinalysis, Complete, with Reflex to Culture (08/15/2024 12:20 PM EDT) Color Urine Yellow [facility] Appearance Urine Clear [facility] PH 5.5 5.0 - 9.0 [facility] Glucose Urine UA Negative Negative mg/dL [facility] Urine Blood Small (1+)(A) Negative [facility] Specific [place] - Urine 1.015 1.005 - 1.025 [facility] Urine Protein 30 (1+)(A) Neg-Trace mg/dL [facility] Urine Ketones Trace Negative mg/dL [facility] Nitrite Urine Negative Negative [facility] Leukocyte Esterase Urine Negative Negative [facility] RBC Urine 0-2 0 - 2 /HPF [facility] Urine WBC 0-5 0 - 5 /HPF [facility] Urine Squamous Epithelial Cell 3-5 0 - 2 /HPF [facility] Urine Bacteria None Seen None Seen [facility] Hyaline Casts, Urine 3-5 0 - 2 /LPF [facility] 08/15/2024 12:2 0 PM EDT 08/15/2024 12:22 PM EDT Narrative [facility] - 08/15/2024 12:44 PM EDT Urine, Clean Catch us Generic External Data Provider LAB URINE ORDERAB LES Final Result [facility] [address] [place] [phone] * CT Abdomen Pelvis w/o Contrast (08/15/2024 10:22 AM EDT) Anatomical Region Laterality Modality Body, Pelvis, Abdomen Computed T omography 08/15/2024 10:2 2 AM EDT Narrative 08/15/2024 12:00 PM EDT [address] [address] [address] Scan Report Signed Patient: Delilah Sevilla MR#: [id number] 39 : 1955 Acct:[id number] Age/Sex: 68 / F ADM Date: 08/15/24 Loc: HO.ED Attending Dr: Ordering Physician: Araceli Morris Date of Service: 08/15/24 Procedure(s): CT abdomen pelvis wo IV con Accession Number(s): [id number] cc: Cristy Monet MD; Araceli Morris Report Number: [id number]: Total DLP = 318.00 mGy-cm EXAMINATION: CT [...] 08/15/24 1158 DD/ 1022 TD/TT: 08/15/24 1135 Dye Mixer: Procedure Note Donotuseinterpreter, Image - 08/15/[address] [address] [address] Scan Report Signed Patient: Ai Sevilla#: [id number] 39 : 8Acct:[id number] Age/Sex: 68 / FADM Date: 08/15/24 Loc: HO.ED Attending Dr: Ordering Physician: Araceli Morris Date of Service: 08/15/24 Procedure(s): CT abdomen pelvis wo IV con Accession Number(s): [id number] cc: Cristy Monet MD; Araceli Morris Report Number: [id number]: Total DLP = 318.00 mGy-cm EXAMINATION: CT [...] 08/15/24 1158 DD/ 1022 TD/TT: 08/15/24 1135 Dye Mixer: [facility] External Provider IMG CT PROCEDURES Final Result * High Sensitivity Troponin I (08/15/2024 9:42 AM EDT) [facility] TROPONIN I HIGH SENSITIVITY 13.7 <3.5 - 17.0 ng/L [facility] Comment:The Cade high sens itivity Troponin-I results should beused in conjunction with other diagnostic information suchas ECG, clinical observations and information, and patientsymptoms to aid in the diagnosis of [place]. 08/15/2024 9:42 AM EDT 08/15/2024 9:45 AM EDT Generic External Data Provider LAB BLOOD ORDERAB LES Final Result [facility] [address] [place] [address] [phone] * (ABNORMAL) CBC auto differential (08/15/2024 9:42 AM EDT) Pathologist [facility] White Blood Count 14.0(H) 4.8 - 10.8 X10*3/uL [facility] Red Blood Count 4.71 4.20 - 5.50 X10*6/uL [facility] Hemoglobin 14.9 12.0 - 16.0 g/dl [facility] Hematocrit 42.1 37.0 - 47.0 % [facility] Mean Corpuscular Volume 89.4 80.0 - 98.0 fL [facility] Mean Corpuscular Hemoglobin 31.6 27.0 - 33.0 pg [facility] Mean Corpuscular HGB Conc 35.4(H) 31.0 - 35.0 g/dl [facility] Red Cell Distribution Width 12.1 11.0 - 16.0 % [facility] Platelet Count 346 160 - 400 X10*3/uL [facility] Mean Platelet Volume 8.6(L) 9.4 - 12.3 fL [facility] Neutrophils Percent Auto 75.0(H) 45 - 73 % [facility] Imm Gran Pct Auto 0.3 0.0 - 0.4 % [facility] Lymphocytes Percent Auto 15.6(L) 20 - 40 % [facility] Monocytes Percent Auto 8.7 2 - 11 % [facility] Eosinophils Percent Auto 0.0 0 - 4 % [facility] Basophils Percent Auto 0.4 0 - 2 % [facility] NRBC Pct Auto 0.0 0.0 - 0.2 /100WBC [facility] Neutrophils Absolute Auto 10.5(H) 2.0 - 8.3 x10*3/uL [facility] Imm Gran Abs Auto 0.04(H) 0.00 - 0.03 X10*3/uL [facility] Lymphocytes Absolute Auto 2.2 1.2 - 4.9 X10*3/uL [facility] Monocytes Absolute Auto 1.2 0.1 - 1.2 X10*3/uL [facility] Eosinophils Absolute Auto 0.0 0.0 - 0.4 X10*3/uL [facility] Basophils Absolute Auto 0.1 0.0 - 0.2 X10*3/uL [facility] NRBC Abs Auto 0.000 0.0 - 0.012 X10*3/uL [facility] 08/15/2024 9:42 AM EDT 08/15/2024 9:45 AM EDT us Generic External Data Provider LAB BLOOD ORDERAB LES Final Result Performing Organization Address [facility] Co de Phone Number [facility] [address] [place] [phone] * Lipase (08/15/2024 9:42 AM EDT) Lipase 76 8 - 78 U/L [facility] 08/15/2024 9:42 AM EDT 08/15/2024 9:45 AM EDT us Generic External Data Provider LAB BLOOD ORDERAB LES Final Result Performing Organization Address [facility] Phone Number [facility] [address] [place] [phone] * (ABNORMAL) Hepatic Function Panel (08/15/2024 9:42 AM EDT) Bilirubin, Total 0.9 0.0 - 1.0 mg/dL [facility] Bilirubin, Direct 0.3 0.0 - 0.5 mg/dL [facility] Aspartate Amino Transferase 40(H) 5 - 31 U/L [facility] Alanine Aminotransferase 29 0 - 31 U/L [facility] Total Protein 8.5(H) 6.5 - 8.0 g/dL [facility] Albumin Level 5.1(H) 3.5 - 5.0 g/dL [facility] Alkaline Phosphatase 114 39 - 117 U/L [facility] 08/15/2024 9:42 AM EDT 08/15/2024 9:45 AM EDT us Generic External Data Provider LAB BLOOD ORDERAB LES Final Result Performing Organization Address [facility] Co de Phone Number [facility] [address] [place] [phone] * (ABNORMAL) Hm Colonoscopy (12/25/2023) Colonoscopy Abnormal( A) Normal [facility] Comment:TA + hyperplastic po lyps Cristy Monet MD HEALTH MAINTENANCE Final Result Performing Organization Address [facility] Co de Phone Number [facility] [address] [place] [address] [phone] * (ABNORMAL) Lipid Panel, Standard (12/19/2023 9:22 AM EDT) Triglycerides 79 <150 mg/dL [facility] Comment:Desirable Triglyceri de: less than 150 mg/dLBorderline High Triglyceride 150-199 mg/dLHigh Triglyceride: 200-499 mg/dLVery High Triglyceride: greater than or equal to 5OO mg/dL Cholesterol 224(H) <200 mg/dL [facility] Comment:Desirable Cholestero l: less than 200 mg/dLBorderline High Cholesterol: 200-239 mg/dLHigh Cholesterol: greater than 239 mg/dL LDL Cholesterol Calculated 117(H) <100 mg/dL [facility] Comment:Desirable LDL: less than 100 mg/dLNear Optimal/Above Optimal LDL: 110- 129 mg/dLBorderline High LDL: 130-159 mg/dLHigh LDL: 160-189 mg/dLVery High LDL: greater than or equal to 190 mg/dL HDL Cholesterol 92 >40 mg/dL [facility] Comment:Desirable HDL: great er than 40 mg/dL Note: This HDL assay may give artificially low results in patients with liver disease. 12/19/2023 9:22 AM EDT 12/19/2023 11:43 AM EDT us Cristy Monet MD LAB BLOOD ORDERABLES Fin al Result Performing Organization Address [facility]/ZIP Co de Phone Number [facility] [address] [place] [address] [phone] * Hepatitis Panel, General (12/04/2023 9:36 AM EDT) Pathologist [facility] Hepatitis A IgM Nonreactive Nonreactive [facility] Comment:IgM antibodies to MARTINES V not detected; does not exclude earlyacute or recovered HAV infection. ~Hepatitis B Surface Antibody REACTIVE Nonreactive [facility] Comment:REACTIVE: > 11.99 mI U/mL Hepatitis B Core Antibody Nonreactive Nonreactive [facility] Hepatitis C Antibody Nonreactive Nonreactive [facility] Comment:Antibodies to HCV no t detected; does not exclude early acuteHCV infection. Hepatitis B Surface Ag Negative Negative [facility] Blood 12/04/2023 9:36 AM EDT 12/04/2023 11:01 AM EDT Cristy Monet MD LAB BLOOD ORDERABLES Fin al Result [facility] [address] [place] [address] [phone] * (ABNORMAL) ThinPrep?? Imaging Pap Refl HPV mRNA(if ASCUS,ASC- H,LSIL,HSIL,TWILA)Refl Genotype (10/18/2023 10:43 AM EDT) [facility] HPV nRNA E6/E7 Detected(A ) Not Detected [facility] Comment:Methodology: Transcr iption-Mediated AmplificationThis assay detects E6/E7 viral messenger RNA (mRNA) from 14high-risk HPV types (16,18,31,33,35,39,45,51,52,56,58,59,66,68).Cervical sources are required for HPV testing.If a vaginal source from a patient who has had atotal hysterectomy with removal of cervix wassubmitted, please contact the testing laboratoryfor alternative testing options.For additional information, please refer tohttp://education.Genalyte/faq/OWG830z1(This link if provided for information/educational purposes only.)THIS TEST WAS PERFORMED AT:[facility] [employer] [facility] [employer] [place] [id number] MEDINA MD HPV 16,18/45 NOT DETECTED NOT DETECTED [facility] Comment:Methodology: Transcr iption Mediated AmplificationCervical sources are required for HPV testing.If a vaginal source from a patient who has had atotal hysterectomy with removal of cervix wassubmitted, please contact the testing laboratoryfor alternative testing options.THIS TEST WAS PERFORMED AT:[facility] [address] [id number] MEDINA MD SOURCE: SEE NOTE [facility] Comment:None given Report Status: [facility] Clinical Information: SEE NOTE [facility] Comment:None given LMP: SEE NOTE [facility] Comment:NONE GIVEN Prev. PAP: SEE NOTE [facility] Comment:NONE GIVEN Prev. BX: SEE NOTE [facility] Comment:NONE GIVEN Statement Of Adequacy: SEE NOTE [facility] Comment:Satisfactory for naheed luation.Endocervical/transformation zone componentpresent. General Categorization: SEE NOTE(A) [facility] Comment:Cytology Results: Ep ithelial Cell Abnormality Interpretation/Result: SEE NOTE(A) [facility] Comment:Atypical Squamous Ce lls of UndeterminedSignificance (ASC-US) Cytology Comment SEE NOTE [facility] Comment:This Pap test has be en evaluated with computerassisted technology. Sugar Cane Grower: SEE NOTE [facility] Comment:DCR, CT(ASCP)CT scre ening location: [address] [address] Review Sugar Cane Grower: [facility] Pathologist SEE NOTE [facility] Comment:Valerio Romero M.D./M.S .,Board Certified in Anatomic Pathology andBoard Eligible Cytopathology(electronic signature)Consulting Pathologist[address] [phone] PAP Infection [facility] See Note SEE [facility] Comment:EXPLANATORY NOTE:The Pap is a screening test for cervical cancer. It isnot a diagnostic test and is subject to false negativeand false positive results. It is most reliable when asatisfactory sample, regularly obtained, is submittedwith relevant clinical findings and history, and whenthe Pap result is evaluated along with historic andcurrent clinical information.THIS TEST WAS PERFORMED AT:[facility] ANATOMIC PATHOLOGY[address] [place] [address]NMJBKLETICIA REYEZ MD 10/18/2023 10:4 3 AM EDT 10/18/2023 4:30 PM EDT Narrative [facility] - 10/31/2023 11:52 AM EDT SEE SCANNED RESULTS IN EMR us Cristy Monet MD LAB CYTOLOGY ORDERABLES Final Result [facility] [address] [place] [address] [phone] from Last 3 Months or Most Recently Relevant to Health Maintenance Insurance [facility] OPT[employer] (HMO D-SNP) [facility] STANDARD Care Teams Life Consultant Relationship Specialty Start Date End Date Cristy Monet MD [address] [place] [address] PCP - General Family Medicine 12/12/19 Sung Rand, DaeD [address] [place] [phone] Pharmacist Internal Medicine 05/27/24
--- OUTSIDE RECORDS SUMMARY | 2024-11-05 08:44 | XMS_ITS | Encounter Summary ---
Author Organization [employer] Address [address] [facility] 7t [place] [address] Care Team Providers Care Quality Control Engineer Name Role Phone Cristy Monet MD Primary Care Provider + Sung Rand PharmD Unavailable [phone] Encounter Details Date Type Department Care Team ([facility] st Contact Info) Description 09/10/2023 Telephone [facility] MEDICINE [address] [place], [place] [phone] Cristy Monet MD [address] [place], [place] [phone] Social History Tobacco Use Types Packs/Day Years [...] AM EDT Office Visit [facility] MEDICINE [address] [place] [phone] Cristy Monet MD 230 [place] [address] 12/11/2024 11:00 AM EDT Telemedicine [facility] MEDICINE [address] [place] [address] Sung Rand, PharmD [address] [place] [address] 03/16/2025 11:00 AM EST Office Visit [facility] OPTOMETRY [address] [place] [address] Filemon, [place], OD 230 [place] [address] documented as of this encounter Visit Diagnoses Not on filedocumented in this encounter Care Teams Quality Control Engineer Relationship Specialty Start Date End Date Cristy Monet MD [address] [place] [phone] PCP - General Family Medicine 12/12/19 Sung Rand, PharmD [address] [place] [phone] Pharmacist Internal Medicine 05/27/24 documented as of this encounter
--- OUTSIDE RECORDS SUMMARY | 2024-11-05 08:44 | XMS_ITS | Encounter Summary ---
Author Organization [employer] Address [address] [facility] [address] 7[address] [place] [address] Care Team Providers Care Waste Minimization Technician Name Role Phone Cristy Monet MD Primary Care Provider + Sung Rand PharmD Unavailable [phone] Encounter Details Date Type Department Care Team (Late st Contact Info) Description 04/17/2024 Orders Only [facility] MEDICINE [address] [place], [place] [phone] ProviderIda MD Social History Tobacco Use Types [...] Description 11/11/2024 10:30 AM EDT Office Visit [facility] MEDICINE [address] [place] [address] Cristy Monet MD [address] [place] [address] 12/11/2024 11:00 AM EDT Telemedicine [facility] MEDICINE [address] [place] [address] Sung Rand, PharmD [address] [place] [address] 03/16/2025 11:00 AM EST Office Visit [facility] OPTOMETRY [address] [place] [address] Filemon, [place], OD 230 [place] [address] documented as of this encounter Procedures Procedure Name Priority Date/Time Associated Diagnosis Comments COLPOSCOPY Routine 04/14/2024 3:06 PM EST documented in this encounter Results * Colposcopy (04/14/2024 3:06 PM EST) us Historical Provider IN CLINIC/BEDSIDE ORDERAB LES Final Result documented in this encounter Visit Diagnoses Not on filedocumented in this encounter Care Teams Waste Minimization Technician Relationship Specialty Start Date End Date Cristy Monet MD [address] [place] [phone] PCP - General Family Medicine 12/12/19 Sung Rand, PharmD [address] [place] [phone] Pharmacist Internal Medicine 05/27/24 documented as of this encounter
--- OUTSIDE RECORDS SUMMARY | 2024-11-05 08:44 | XMS_ITS | Encounter Summary ---
Author Organization [employer] Address [address] [facility] 7[address] [place] [address] Care Team Providers Care Automotive Internet Sales Manager Name Role Phone Cristy Monet MD Primary Care Provider + Sung Rand PharmD Unavailable [phone] Encounter Details Date Type Department Care Team (Late st Contact Info) Description 07/07/2022 Orders Only [facility] MEDICINE [address] [place] [address] [phone] Odilia Smiley LPN Social History Tobacco Use [...] Description 11/11/2024 10:30 AM EDT Office Visit [facility] MEDICINE [address] [place] [phone] Cristy Monet MD [address] [place] [address] 12/11/2024 11:00 AM EDT Telemedicine [facility] MEDICINE [address] [place] [address] [phone] Sung Rand, PharmD [address] [place] [address] [phone] 03/16/2025 11:00 AM EST Office Visit [facility] OPTOMETRY [address] [place] [address] [place] Colbert, OD [address] [place] [address] documented as of this encounter Procedures Procedure Name Priority Date/Time Associated Diagnosis Comments BI MAMMOGRAM SCREENING TOMOSYNTHESIS BILATERAL Routine 07/07/2022 1:05 PM EDT documented in this encounter Results * BI Mammogram Screening Tomosynthesis Bilateral (07/07/2022 1:05 PM EDT) Anatomical Region Laterality Modality Breast Bilateral Mammography 07/07/2022 1:05 PM EDT Narrative 07/10/2022 1:12 PM EDT [facility]'[address] [place] [address] Mammography Report Signed Patient: Delilah Sevilla MR#: [id number] : 1955 Acct:[id number] Age/Sex: 66 / F ADM Date: 07/07/22 Loc: HO.MAMMO Attending Dr: Cristy Monet MD Ordering Physician: Cristy Monet MD Results: 2Be nign Findings Date of Service: 07/07/22 Follow Up: 1 Year From Orig ina Mammogram Procedure(s): MM tomosynthesis screening BI Accession Number(s): [id number] cc: Cristy Monet MD EXAMINATION: MM SCREENING [...] in OV> 07/10/22 1309 DD/ 1305 TD/TT: Assembly And Packing Supervisor: ACOSTA Procedure Note Donotuseinterpreter, Image - 08/31/2022 [facility] [address] [place] [address] Mammography Report Signed Patient: Delilah SevillaMR#: [id number] 39 : 8Acct:[id number] Age/Sex: 66 / FADM Date: 07/07/22 Loc: HO.MAMMO Attending Dr: Cristy Monet MD Ordering Physician: Cristy Monet MDResults: 2Be nign Findings Date of Service: 07/07/22Follow Up: 1 Year From Orig ina Mammogram Procedure(s): MM tomosynthesis screening BI Accession Number(s): [id number] cc: Cristy Monet MD EXAMINATION: MM SCREENING [...] in OV> 07/10/22 1309 DD/ 1305 TD/TT: Assembly And Packing Supervisor: ACOSTA [facility] External Provider IMG BI PROCEDURES Final Result documented in this encounter Visit Diagnoses Not on filedocumented in this encounter Care Teams Automotive Internet Sales Manager Relationship Specialty Start Date End Date Cristy Monet MD 230 [place] [address] PCP - General Family Medicine 12/12/19 Sung Rand PharmD 230 [place] [address] Pharmacist Internal Medicine 05/27/24 documented as of this encounter
--- OUTSIDE RECORDS SUMMARY | 2024-11-05 08:44 | XMS_ITS | Encounter Summary ---
Author Organization [employer] Address [address] [facility] [address] 7[address] [place] [address] Care Team Providers Care Go Cart Mechanic Name Role Phone Cristy Monet MD Primary Care Provider + Sung Rand PharmD Unavailable [phone] Reason for Visit * Reason Comments Med Refill Encounter Details Date Type Department Care Team (Late st Contact Info) Description 02/03/2024 Refill [facility] [address] [place], [place] [phone] Niru Oakes MD 230 [place] [address] Resistant hypertension Social History Tobacco Use Types [...] Description 11/11/2024 10:30 AM EDT Office Visit [facility] MEDICINE [address] [place] [address] Cristy Monet MD [address] [place] [address] 12/11/2024 11:00 AM EDT Telemedicine [facility] MEDICINE [address] [place] [address] Sung Rand, Bill [address] [place] [address] 03/16/2025 11:00 AM EST Office Visit [facility] OPTOMETRY [address] [place] [address] Filemon, [place], OD [address] [place] [address] documented as of this encounter Visit Diagnoses Diagnosis Resistant hypertension documented in this encounter Care Teams Go Cart Mechanic Relationship Specialty Start Date End Date Cristy Monet MD [address] [place] [address] PCP - General Family Medicine 12/12/19 Sung Rand, PharmD [address] [place] [address] Pharmacist Internal Medicine 05/27/24 documented as of this encounter
--- OUTSIDE RECORDS SUMMARY | 2024-11-05 08:44 | XMS_ITS | Encounter Summary ---
Author Organization [employer] Address [address] [facility] 7t [place] [address] Care Team Providers Care Leasing Representative Name Role Phone Cristy Monet MD Primary Care Provider + Sung Rand PharmD Unavailable [phone] Encounter Details Date Type Department Care Team ([facility] st Contact Info) Description 10/08/2024 Results Follow-Up [facility] MEDICINE [address] [place] [address] Cristy Monet MD 230 [place], [place] [phone] US RENAL DOPPLER Social History Tobacco Use [...] Description 11/11/2024 10:30 AM EDT Office Visit [facility] MEDICINE [address] [place] [address] Cristy Monet MD [address] [place] [address] 12/11/2024 11:00 AM EDT Telemedicine [facility] MEDICINE [address] [place] [address] Sung Rand, PharmD [address] [place] [address] 03/16/2025 11:00 AM EST Office Visit [facility] OPTOMETRY [address] [place] [address] [place] Colbert, OD [address] [place] [address] documented as of this encounter Visit Diagnoses Not on filedocumented in this encounter Care Teams Leasing Representative Relationship Specialty Start Date End Date Cristy Monet MD [address] [place] [address] PCP - General Family Medicine 12/12/19 Sung Rand, Bill [address] [place] [phone] Pharmacist Internal Medicine 05/27/24 documented as of this encounter
--- OUTSIDE RECORDS SUMMARY | 2024-11-05 08:44 | XMS_ITS | Encounter Summary ---
Author Organization [employer] Address [address] [facility] [address] [place] [address] Care Team Providers Care Electric Fork Operator Name Role Phone Cristy Monet MD Primary Care Provider + Sung Rand PharmD Unavailable [phone] Encounter Details Date Type Department Care Team (Late st Contact Info) Description 03/28/2022 Orders Only [facility] MEDICINE [address] [place] [address] [phone] Odilia Smiley LPN Social History Tobacco Use [...] Description 11/11/2024 10:30 AM EDT Office Visit [facility] MEDICINE [address] [place] [phone] Cristy Monet MD [address] [place] [address] [phone] 12/11/2024 11:00 AM EDT Telemedicine [facility] MEDICINE [address] [place] [address] [phone] Sung Rand, PharmD [address] [place] [address] [phone] 03/16/2025 11:00 AM EST Office Visit [facility] OPTOMETRY [address] [place] [address] [place] Colbert, OD 230 [place] [address] documented as of this encounter Visit Diagnoses Not on filedocumented in this encounter Care Teams Electric Fork Operator Relationship Specialty Start Date End Date Cristy Monet MD [address] [place] [address] PCP - General Family Medicine 12/12/19 Sung Rand, DaeD [address] [place] [address] [phone] Pharmacist Internal Medicine 05/27/24 documented as of this encounter
== END 2024-11-05 08:49 | disposition home or self-care (01) ==
LOC: HO.HGS 08:18
PROVIDERS: PCP Internal Medicine; Visit Provider Surgery
DX: N63.20 Unspecified lump in the left breast, unspecified quadrant (principal); Z80.3 Family history of malignant neoplasm of breast
CPT/HCPCS: 99203

== ENCOUNTER 2024-11-05 08:57 | Outpatient (REF) | payer OTHER, SELFPAY ==
--- NOTE | ~2024-11-05 | MM_ITS ---
PROCEDURE: ULTRASOUND-GUIDED LEFT BREAST BIOPSY CLINICAL INFORMATION: Solid irregular mass at 2:00 8 cm from the nipple here for ultrasound-guided core needle biopsy. COMPARISON: [facility]ors on PACS. TECHNIQUE: The details of the procedure, as well as the risks, benefits, and alternatives to the procedure were explained to the patient in detail and all of her questions were answered, after which, written informed consent was obtained. PROCEDURE: Prior to the procedure, sonography revealed a solid irregular mass at 2:00 8 cm from the nipple. A time-out was performed, the lesion intended for biopsy was targeted and the skin of the left breast was then prepped and draped in the usual sterile fashion. Using sonographic guidance, sterile technique, and 1% lidocaine without epinephrine for local anesthesia, a total of 4 cores were obtained through the targeted area with a 14-gauge biopsy device. At the completion of tissue sampling, a single butterfly metallic clip was deposited at the biopsy site. An appropriate sample was obtained. The postprocedure 2-view direct digital mammogram reveals satisfactory positioning of the biopsy clip. The patient tolerated the procedure well and, after assuring adequate hemostasis, was discharged in good condition after reviewing postbiopsy breast care instructions. Final pathology results are pending. MM/MM tomosynthesis diagnostic LT IMPRESSION: 1. Uncomplicated sonographically-guided core biopsy of the left breast. The 2-view direct digital postprocedure mammogram reveals satisfactory positioning of the biopsy clip. 2. Final pathology results are pending. A separate report with final recommendations will be issued once these results are made available. Electronically signed by: Elda Graham DO 11/05/2024 11:55 AM EDT
[2024-11-05] MEDS: Lidocaine HCl 1 % 20 ML VIAL 18 ML SUBCUT (10:19)
== END 2024-11-05 08:58 | disposition home or self-care (01) ==
LOC: HO.MAMMO 08:57
PROVIDERS: Pathology Cytopathology; PCP Internal Medicine; Visit Provider Surgery
DX: N63.21 Unspecified lump in the left breast, upper outer quadrant (principal); Z80.3 Family history of malignant neoplasm of breast
CPT/HCPCS: 19083; 77061; 77065; 88305; 88341; 88342; 88360; 88374; 99202; A4648; J2003

== ENCOUNTER → 2024-11-05 09:00 | Outpatient (BNV) | payer OTHER, SELFPAY | PROVIDERS: PCP Internal Medicine; Visit Provider Internal Medicine | DX: N63.21 Unspecified lump in the left breast, upper outer quadrant (principal) | CPT/HCPCS: 19083; 77065 ==

== ENCOUNTER 2024-11-10 13:25 | Outpatient (AMB) | payer OTHER, SELFPAY ==
--- NOTE | 2024-11-10 13:27 | MHC.OFFVIS ---
Vital Signs 11/10/24 13:31 Height 5 ft 3 in Weight 118 lb BMI 20.9 BP 117/74 Blood Pressure Location Rt brachial Position Sitting Pulse 60 Intake Visit Reasons: biopsy results Intake Note: Patient here to discuss lt breast bx results. Patient c/o: reports bx site healing well. Belt Cutter Required: Yes Information Interpreted: clinical only (Ton #[id number]) Accompanied by: Self / Same As Patient Allergies No Known Allergies Allergy (Mild, Verified 11/10/24 13:32) Medication List - Last Reconciled 11/10/24 by Leo Sevilla MD amlodipine 5 mg PO DAILY aripiprazole 5 mg PO DAILY calcium carbonate-vitamin D3 500 mg-5 mcg (200 unit) (Oyster Shell Calcium-Vitamin D3) 1 tab PO BID citalopram 20 mg PO DAILY clonidine HCl 0.1 mg PO BID clonidine HCl 0.1 mg PO BID hydrochlorothiazide 25 mg PO DAILY hydroxychloroquine (Plaquenil) Take 1 tablets daily from Sunday to Sunday and 1 tablet twice a day Sunday and Sunday 90 days ipratropium-albuterol 20-100 mcg/actuation (Combivent Respimat) inhalation isoniazid 300 mg PO DAILY 30 days losartan 100 mg PO DAILY metoprolol tartrate 25 mg PO BID ondansetron 4 mg PO Q8H PRN pravastatin 40 mg PO DAILY pyridoxine (vitamin B6) 50 mg PO DAILY 30 days zolpidem 5 mg PO BEDTIME PRN HPI HPI biopsy results: Details: [age] year female referred for a left breast mass. She had a mammogram showing a mass in the left breast at the 2 o'clock position measuring 9 x 6 x 9 mm. She was brought in for diagnostic ultrasound and mammogram for the left breast which showed a solid irregular mass at the 2 o'clock position, 8 cm from the nipple. An ultrasound biopsy was therefore done last 02/04/2025 and she is here to discuss the findings. She describes some ecchymosis on the biopsy site. There were also grouped coarse heterogenous calcifications in the upper outer quadrant which have been stable compared to prior magnification views. She denies any palpable mass. Her menarche was at the age of 14. Her 1st was at age of 19. She had 3 pregnancies. She had menopause at the age of 50. She says her sister had breast cancer at the age of 38. She smokes half a pack a day and has done so for most of her life. [facility] Medical History (Updated 11/10/24 @ 13:06 by Leo Sevilla MD) Invasive lobular carcinoma of breast in female Family history of breast cancer Left breast mass Long-term use of Plaquenil Seronegative rheumatoid arthritis Positive TB test Encounter before starting medication Smoker unmotivated to quit Inflammatory arthritis Bilateral hand swelling Joint pain in both hands High blood cholesterol HTN (hypertension) Surgical History Hx of esophagogastroduodenoscopy Hx of colonoscopy Social History Household Members Other:: lives alone Are you a primary post acute care nurse practitioner to a significant other at home: No Do you presently have visiting nurse or other home services: No Alcohol intake: current Alcohol intake frequency: a few times a week Alcohol type: beer Patient Tobacco Use Status: Current everyday Tobacco user Tobacco use type: Cigarette Cigarette Packs Per Day: 1 Cigarettes Per Day: 6 Second Hand Smoke Exposure: No Substance Use Type: Marijuana Physical Exam Vital Signs: Last Vital Signs Pulse 60 11/10/24 13:31 BP 117/74 11/10/24 13:31 BMI result Body Mass Index 20.9 Assessment & Plan Assessment & Plan (1) Invasive lobular carcinoma of breast in female: Code(s): C50.919 - Malignant neoplasm of unspecified site of unspecified female breast Category: Medical Plan: I had a long discussion with her about the options for treatment. I explained to her the option of mastectomy with sentinel node biopsy. I also explained the technique of lumpectomy with the Hologic localizer and sentinel node biopsy. If she chooses this option, she will need to have radiation to complete treatment I explained to her the advantages and disadvantages of each option. She had a discussion with her daughter Jessica ([phone]) during the visit. She eventually chose to undergo lumpectomy, with the Hologic localizer with sentinel node biopsy. The radiologist also recommended proceeding with MRI of the left breast because of the fibroglandular heterogenous tissue around the area of the lesion. Orders: Referrals Hematology & Oncology Referral C50.919 - Malignant neoplasm of unspecified site of unspecified female breast Coding Level of Care Code Est Pt Level 4 (83127) Diagnoses Invasive lobular carcinoma of breast in female C50.919
[2024-11-10 13:31] VITALS: BP 117/74; PULSE 60; BMI 20.9
--- OUTSIDE RECORDS SUMMARY | 2024-11-10 15:42 | XMS_ITS | Clinical Summary ---
Author Organization [employer] Address [address] [facility] [address] [place] [address] Care Team Providers Care Metal Furniture Assembly Supervisor Name Role Phone Cristy Monet MD Primary Care Provider + Sung Rand PharmD Unavailable [phone] Allergies Active Allergy Reactions Criticality Noted Date [...] wheezing. 18 g 3 4 Active Umeclidinium [place] (Incruse Ellipta) 62.5 MCG/ACT aerosol powder Inhale [...] this year, borders were negative Follow-up with HEALTH SERVICES MANAGER in 6 months Memory impairment 07/14/2024 Assessment & Plan (08/22/2024 11:00 AM EDT): Doing well on aspirin 81 mg, tolerates well. Advised to optimal control risk factors as mentioned at previous visit. His CT scan of the brain is normal, not showing microvascular changes. She has a BIOANALYST to help her with ADLs and remind [...] twice daily Will check regarding referral to embedded developer due to resistant hypertension (8 was done [...] seems to be better controlled, seen by assistant head cashier Assessment & Plan (06/27/2023 10:39 AM EDT): - seen by rheumatology, reminded her to get labs done today and f/u with assistant head cashier Assessment & Plan (06/27/2023 9:57 AM EDT): [...] asymptomatic I will refer to rheumatology in [facility] to improve compliance w/ appointment Assessment & [...] Encounters Date Type Department Care Team Description 11/10/2024 Telephone [facility] [address] Cristy Monet MD Chart Prep 11/08/2024 Results Follow-Up [facility] [address] [place] [address] Cristy Monet MD Hematoxylin and Eosin Stain 11/05/2024 Orders Only GENERIC EXTERNAL DATA DEPARTMENT Provider, Generic External Data 10/27/2024 Telephone [place] [address] Sung Rand, PharmSymone 10/23/2024 11:30 AM EDT Telemedicine [place] [address] Sung Rand, Bill Primary hypertension (Primary Dx) 10/15/2024 Orders Only [place] [address] Cristy Monet MD 10/08/2024 Telephone [place] [address] Cristy Monet MD Normal imaging letter 10/08/2024 Results Follow-Up [place] [address] Cristy Monet MD US RENAL DOPPLER 09/25/2024 11:30 AM EDT Telemedicine [place] [address] Sung Rand PharmD Primary hypertension (Primary Dx); History of non-ST elevation myocardial infarction (NSTEMI) 09/04/2024 Refill [facility] [place] [address] Cristy Monet MD 08/22/2024 10:30 AM EDT Office Visit [place] [address] Cristy Monet MD HTN (hypertension), benign (Primary Dx); KATHARINE (acute kidney injury) ([facility]); Substance abuse ([facility]); Chronic obstructive pulmonary disease, unspecified COPD type ([facility]); Memory impairment; Epigastric pain 08/22/2024 Travel 08/20/2024 Telephone [facility] [address] [place] [address] Cristy Monet MD CHART PREP 08/15/2024 Orders Only GENERIC EXTERNAL DATA DEPARTMENT Provider, Generic External Data 08/13/2024 Patient Outreach [facility] [address] [place] [address] Cristy Monet MD Pre-visit Planning (SDOH screening negative and tobacco screening negative) from Last 3 Months Immunizations Immunization Administration [...] Description 11/11/2024 10:30 AM EDT Office Visit [facility] [address] [place] [address] Cristy Monet MD [address] [place] [address] 12/11/2024 11:00 AM EDT Telemedicine [facility] [address] [place] [address] Sung Rand, PharmD [address] [place] [address] 03/16/2025 11:00 AM EST Office Visit [facility] [address] [place] [address] Indiana Colbert, OD [address] [place] [address] Health Maintenance Due Date Last Done Comments [...] 10/18/2023, 06/0 07/2022, 08/07/2022, Additional history exists COVID-19 Vaccine (3 - 2024- season) 2024 01/04/2021, 12/14/2020 Influenza Vaccine (#1) 2024 , 01/12/2020, 11/21/2018, Additional history exists Diagnostic Breast Imaging 05/05/20252024, 10/15/2024, 10/15/2024, Additional history exists SDOH Screening 08/13/2025 08/13/2024 [...] Diagnosis Comments HEMATOXYLIN AND EOSIN STAIN Routine 11/05/2024 9:37 AM EDT US BREAST NDL CORE BIOPSY LT Routine 11/05/2024 9:15 AM EDT BI MAMMOGRAM DIAGNOSTIC TOMOSYNTHESIS LEFT Routine 11/05/2024 8:47 AM EDT HEMOGLOBIN + HEMATOCRIT Routine 11/04/2024 10:10 AM [...] Recently Relevant to Health Maintenance Results * Hematoxylin and Eosin Stain (11/05/2024 9:37 AM EDT) 11/05/2024 9:37 AM EDT 11/05/2024 10:32 AM EDT [facility] - 11/07/2024 10:35 AM EDT ----- ------- Name: Delilah Sevilla Age/Sex: 69/F : 1955 Unit#: [id number] Attend Dr: Leo Sevilla MD Re11/05/24 Status: DEP REF Location: HO.MAMMO Disch: ----- ------- SPEC : [id number] RECD: 11/05/24 STATUS: PANKAJ RELes NUM: [id number] ADELAIDE: 11/05/[address]: Elda Graham DO ENTERED: 11/05/24 SP TYPE: Surgical OTHR DR: Cristy Monet MD, Francis MD ORDERED: HE Stain/2, Gross Micro L4, ER, OR, IHC/6, E-cadherin, Sophia-3, Ki-67, [id number] COMMENTS: As per the specimen requisition slip the specimen is collected at 0937 and placed in formalin at 0941. Diagnosis Breast, left, 2:00, core biopsy: -Invasive lobular carcinoma, MSBR grade 2. Synoptic report Procedure: Core biopsy Specimen laterality: Left Histologic type: Invasive lobular carcinoma. Histologic grade (George/MSBR histologic score): 2 - Glandular/tubular differentiation: Score: 3 - Nuclear pleomorphism: Score: 2 - Mitotic rate: Score: 1 Tumor size: Largest linear diameter: 4 mm Ductal carcinoma in situ: Not identified Lymphatic and/or vascular invasion: Not identified Microcalcifications: Not identified Immunohistochemical stains on tumor as follows: -Estrogen Receptor: POSITIVE (% Positive cells: 100, average intensity: Strong) -Progesterone Receptor: POSITIVE (% Positive cells: 90, average intensity: Moderate) -HER2: EQUIVOCAL ( 2+) (% Positive cells: 20, average intensity: Weak, incomplete) -Ki67: LOW (% Positive cells: < 20, 15%) -Controls (external and internal): Appropriate [place]us HER2 FISH analysis pending; addendum to follow. Note: Some of the listed elements may change with subsequent review of the entire lesion. Clinical History Left breast mass 2 o'clock, ? CA vs other Microscopic Description Microscopic sections show infiltration of irregular small groups, trabeculae and cords of malignant cells. The tumor cells have moderate vesicular cytoplasm with enlarged round to oval nuclei with moderate irregularity and small nucleoli. Focal retraction artifact is noted. Immunostains show the tumor cells are positive for GATA3 and negative for E- CONTINUED ON NEXT PAGE ----- ------- Name: Delilah Sevilla Age/Sex: 69/F [facility] 1955 [id number] Unit#: [id number] Attend Dr: Leo Sevilla MD Re11/05/24 Status: DEP REF Location: [facility] Disch: ----- ------- SPEC : [id number] RECD: 11/05/24 STATUS: PANKAJ [place] NUM: [id number] ADELAIDE: 11/05/[address]: Elda Graham DO ENTERED: 11/05/24 SP TYPE: Surgical OTHR DR: Cristy Monet MD, Francis MD ORDERED: HE Stain/2, Gross Micro L4, ER, OR, IHC/6, E-cadherin, Sophia-3, Ki-67, [id number] COMMENTS: As per the specimen requisition slip the specimen is collected at 0937 and placed in formalin at 0941. Microscopic Description (Continued) cadherin. Controls stain appropriately. Material Received Left breast mass 2 o'clock, ? CA vs other Gross Description Received in formalin labeled left breast mass 2 o'clock are six irregular shards and thin and delicate cylindrical threads of cano-white and cano-pink tissue ranging from 0.1-1.2 cm in greatest dimension, submitted in toto in a cassette labeled A. CEDS Formalin-fixed paraffin-embedded tissue. Time tissue removed from patient: 09:37 Time tissue placed in fixative: 09:41 Duration of fixation: 6-24 hrs. Interpretive Information All tests are performed on formalin-fixed, paraffin-embedded tissue using automated immunostain methods: Estrogen receptor: Clone SP1; [place] CONFIRM [employer] [place] DAB Progesterone receptor: Clone 1E2; [place] CONFIR[facility] [employer] [place] DAB HER2: FDA-approved [place] PATHWAY anti-HER-2/robert (4B5) Monoclonal; [employer] [place] DAB Controls are performed and evaluated for each assay, and all testing is performed in accordance with the most recent ASCO/CAP guidelines. Results reflect status of invasive carcinoma component, unless otherwise specified (as in DCIS). Fixation times range between 6 hours and 72 hours unless otherwise specified. ER and PgR immunostains are scored as Positive (> or = 10% of tumor cell nuclei), Low positive (1-10% of tumor cell nuclei) or Negative (< 1% of tumor cell nuclei), with the percentage of immunopositive nuclei and the nuclear staining intensity given in parentheses. The Negative category is further delineated by the presence or absence of internal positive control tissue. Ki-67 immunostains are scored as High = or > 20% positive nuclei and Low < 20% positive nuclei. Regarding HER2 immunoassays, the Positive category correlates with intense, complete membranous staining of more than 10% of the carcinomatous cells, and is designated as 3+. The Negative category (0) includes negative and incomplete faint/barely perceptible staining CONTINUED ON NEXT PAGE ----- ------- Name: Delilah Sevilla Age/Sex: 69/F : 1955 Unit#: [id number] Attend Dr: Leo Sevilla MD Re11/05/24 Status: DEP [facility]ch: ----- ------- SPEC : [id number] RECD: 11/05/24 STATUS: PANKAJ RE NUM: [id number] ADELAIDE: 11/05/[address]: Elda Graham DO ENTERED: 11/05/24 SP TYPE: Surgical OTHR DR: Cristy Monet MD, Francis MD ORDERED: HE Stain/2, Gross Micro L4, ER, OR, IHC/6, E-cadherin, Sophia-3, Ki-67, [id number] COMMENTS: As per the specimen requisition slip the specimen is collected at 0937 and placed in formalin at 0941. Gross Description (Continued) in 10% tumor cells or less. The Low category (1+) includes incomplete faint/barely perceptible staining in > 10% of tumor cells. The Equivocal (2+) category reflects weak to moderate incomplete, or nonuniform circumferential staining, in >10% tumor cells, or strong circumferential staining in less than 10% of the tumor. The Equivocal category includes a minor subset of patients with HER2 gene amplification, and confirmatory testing for gene amplification by FISH methodology will be reflexively performed on all Equivocal (2+) cases. NOTE: Some or all of the tests utilized in this case are laboratory developed tests (LDT), and may use class I analyte specific reagents (ASR). These tests were developed for clinical purposes and their performance characteristics determined by this lab on tissue fixed in 10% neutral buffered formalin. Other fixatives specified (CytoLyt or decalcification) have not been validated, and results should be interpreted with caution in the diagnostic context of the case. This lab is certified under the Clinical Laboratory Improvement Amendments of 1988 (CLIA) as qualified to perform high complexity clinical laboratory testing. References: Katelin MAYERS, Livier MORTENSEN, et al. Estrogen and Progesterone Receptor Testing in Breast Cancer: [place] Society of Clinical Oncology/College of [place] Pathologists Guideline Update. Arch of Pathol Lab Med. 2020; 144(5): 545-563. Pee PRATT, Livier ALBRECHT, Katelin MAYERS, et al. Her2 testing in breast cancer: [place] Society of Clinical Oncology/College of [place] Pathologists clinical practice guideline focused update. Arch Pathol Lab Med. 2018; 142(11): 8532-1396. Arturo N, Akanksha P, et al. Adjuvant abemaciclib combined with endocrine therapy for high- risk early breast cancer: updated efficacy and Ki-67 analysis from the [facility] study. Sydnie Oncol. 2020;32(12):3643-4564. Livier MORTENSEN, [place] AGUILERA, et al. ASCO/CAP Guideline Recommendations for Immunohistochemical Testing of Estrogen and Progesterone Receptors in Breast Cancer. J Clin Oncol, 28 (16), 2010: 6422-3436. This case was reviewed intradepartmentally. Case discussed with Drew Graham and Roel by secure text by Dr. Diehl on 11/06/2024 at 12:07 pm. Special studies ordered and performed: Immunostains for ER, OR, HER2, Ki 67, E-cadherin, and GATA3 on A1. CONTINUED ON NEXT PAGE ----- ------- Name: Delialh Sevilla Age/Sex: 69/F : 1955 Unit#: [id number] Attend Dr: Leo Sevilla MD Re11/05/24 Status: DEP [facility] Disch: ----- ------- SPEC : [id number] RECD: 11/05/24 STATUS: PANKAJ [place] NUM: [id number] ADELAIDE: 11/05/[address]: Elda Graham DO ENTERED: 11/05/24 SP TYPE: Surgical OTHR DR: Cristy Monet MD, Francis MD ORDERED: HE Stain/2, Gross Micro L4, ER, OR, IHC/6, E-cadherin, Sophia-3, Ki-67, [id number] COMMENTS: As per the specimen requisition slip the specimen is collected at 0937 and placed in formalin at 0941. IHC S/NG Disclaimer NOTE: Unless otherwise stated, all tissue is formalin-fixed and paraffin-embedded. Some or all of the immunohistochemical tests reported herein may have been developed and their performance characteristics determined by [facility]. They have not been cleared or approved by the U.S. Food and Drug Administration (FDA). However, the FDA has determined that such clearance or approval is not necessary. This laboratory is certified under the Clinical Laboratory Improvement Amendments of 1988 (CLIA) as qualified to perform high complexity clinical laboratory testing. Copies To: Cristy Monet MD [facility] [address] [place], [place] [id number] Leo Sevilla MD [facility] [address] [place] [address] Elda Graham DO [address] [place] [id number] ----- ------- Signed (signature on file) [place] 11/07/24 1035 ----- ------- END OF REPORT us Generic External Data Provider LAB BLOOD ORDERAB LES Final Result [facility] [address] [place] [address] [phone] * US BREAST NDL CORE BIOPSY LT (11/05/2024 9:15 AM EDT) Anatomical Region Laterality Modality Abdomen Ultrasound 11/05/2024 9:15 AM EDT Narrative 11/05/2024 11:58 AM EDT [facility] [address] [place] [address] Ultrasound Report Signed Patient: Delilah Sevilla MR#: [id number] 39 : 1955 Acct:[id number] Age/Sex: 69 / F ADM Date: 11/05/24 Loc: HO.MAMMO Attending Dr: Leo Sevilla MD Ordering Physician: Leo Sevilla MD Date of Service: 11/05/24 Procedure(s): US breast ndl core biopsy LT Accession Number(s): [id number] cc: Cristy Monet MD; Leo Sevilla MD Reason for Exam: N63.20 - Unspecified lump in the left breast, unspecified quadrant PROCEDURE: ULTRASOUND-GUIDED LEFT BREAST BIOPSY CLINICAL INFORMATION: Solid irregular mass at 2:00 8 cm from the nipple here for ultrasound-guided core needle biopsy. COMPARISON: Priors on PACS. TECHNIQUE: The details of the procedure, as well as the risks, benefits, and alternatives to the procedure were explained to the patient in detail and all of her questions were answered, after which, written informed consent was obtained. PROCEDURE: Prior to the procedure, sonography revealed a solid irregular mass at 2:00 8 cm from the nipple. A time-out was performed, the lesion intended for biopsy was targeted and the skin of the left breast was then prepped and draped in the usual sterile fashion. Using sonographic guidance, sterile technique, and 1% lidocaine without epinephrine for local anesthesia, a total of 4 cores were obtained through the targeted area with a 14-gauge biopsy device. At the completion of tissue sampling, a single butterfly metallic clip was deposited at the biopsy site. An appropriate sample was obtained. The postprocedure 2-view direct digital mammogram reveals satisfactory positioning of the biopsy clip. The patient tolerated the procedure well and, after assuring adequate hemostasis, was discharged in good condition after reviewing postbiopsy breast care instructions. Final pathology results are pending. US/US breast ndl core biopsy LT IMPRESSION: 1. Uncomplicated sonographically-guided core biopsy of the left breast. The 2-view direct digital postprocedure mammogram reveals satisfactory positioning of the biopsy clip. 2. Final pathology results are pending. A separate report with final recommendations will be issued once these results are made available. Electronically signed by: Elda Graham DO 11/05/2024 11:55 AM EDT Dictated By: Elda Graham DO Signed By: <Electronically signed by Elda Graham DO in OV> 11/05/24 1155 DD/ 0915 TD/TT: 11/05/24 1000 Investor Relations Director: Procedure Note Mitchellter, Image - 11/05/2024 [facility] [address] [place] [address] Ultrasound Report Signed Patient: Delilah SevillaMR#: [id number] 39 : 8Acct:[id number] Age/Sex: 69 / FADM Date: 11/05/24 Loc: HO.MAMMO Attending Dr: Leo Sevilla MD Ordering Physician: Leo Sevilla MD Date of Service: 11/05/24 Procedure(s): US breast ndl core biopsy LT Accession Number(s): [id number] cc: Cristy Monet MD; Leo Sevilla MD Reason for Exam: N63.20 - Unspecified lump in the left breast,unspecified quadrant PROCEDURE: ULTRASOUND-GUIDED LEFT BREAST BIOPSY CLINICAL INFORMATION: Solid irregular mass at 2:00 8 cm from the nipple here for ultrasound-guided core needle biopsy. COMPARISON: Priors on PACS. TECHNIQUE: The details of the procedure, as well as the risks, benefits, and alternatives to the procedure were explained to the patient in detail and all of her questions were answered, after which, written informed consent was obtained. PROCEDURE: Prior to the procedure, sonography revealed a solid irregular mass at 2:00 8 cm from the nipple. A time-out was performed, the lesion intended for biopsy was targeted and the skin of the left breast was then prepped and draped in the usual sterile fashion. Using sonographic guidance, sterile technique, and 1% lidocaine without epinephrine for local anesthesia, a total of 4 cores were obtained through the targeted area with a 14-gauge biopsy device. At the completion of tissue sampling, a single butterfly metallic clip was deposited at the biopsy site. An appropriate sample was obtained. The postprocedure 2-view direct digital mammogram reveals satisfactory positioning of the biopsy clip. The patient tolerated the procedure well and, after assuring adequate hemostasis, was discharged in good condition after reviewing postbiopsy breast care instructions. Final pathology results are pending. US/US breast ndl core biopsy LT IMPRESSION: 1. Uncomplicated sonographically-guided core biopsy of the left breast. The 2-view direct digital postprocedure mammogram reveals satisfactory positioning of the biopsy clip. 2. Final pathology results are pending. A separate report with final recommendations will be issued once these results are made available. Electronically signed by: Elda Graham DO 11/05/2024 11:55 AM EDT Dictated By: Elda Graham DO Signed By: <Electronically signed by Elda Graham DO in OV> 11/05/24 1155 DD/ 0915 TD/TT: 11/05/24 1000 Investor Relations Director: [facility] External Provider IMG US PROCEDURES Final Result * BI Mammogram Diagnostic Tomosynthesis Left (11/05/2024 8:47 AM EDT) Only the most recent of2 resultswithin the time period is included. Anatomical Region Laterality Modality Breast Left Mammography 11/05/2024 8:47 AM EDT Narrative 11/05/2024 11:58 AM EDT [address] [place] [address] Mammography Report Signed Patient: Delilah Sevilla MR#: [id number] 39 : 1955 Acct:[id number] Age/Sex: 69 / F ADM Date: 11/05/24 Loc: HO.MAMMO Attending Dr: Leo Sevilla MD Ordering Physician: Leo Sevilla MD Results: 1Neg ative Date of Service: 11/05/24 Follow Up: 1 Year From Orig ina Mammogram Procedure(s): MM tomosynthesis diagnostic LT Accession Number(s): [id number] cc: Cristy Monet MD; Leo Sevilla MD PROCEDURE: ULTRASOUND-GUIDED LEFT BREAST BIOPSY CLINICAL INFORMATION: Solid irregular mass at 2:00 8 cm from the nipple here for ultrasound-guided core needle biopsy. COMPARISON: [facility]ors on PACS. TECHNIQUE: The details of the procedure, as well as the risks, benefits, and alternatives to the procedure were explained to the patient in detail and all of her questions were answered, after which, written informed consent was obtained. PROCEDURE: Prior to the procedure, sonography revealed a solid irregular mass at 2:00 8 cm from the nipple. A time-out was performed, the lesion intended for biopsy was targeted and the skin of the left breast was then prepped and draped in the usual sterile fashion. Using sonographic guidance, sterile technique, and 1% lidocaine without epinephrine for local anesthesia, a total of 4 cores were obtained through the targeted area with a 14-gauge biopsy device. At the completion of tissue sampling, a single butterfly metallic clip was deposited at the biopsy site. An appropriate sample was obtained. The postprocedure 2-view direct digital mammogram reveals satisfactory positioning of the biopsy clip. The patient tolerated the procedure well and, after assuring adequate hemostasis, was discharged in good condition after reviewing postbiopsy breast care instructions. Final pathology results are pending. MM/MM tomosynthesis diagnostic LT IMPRESSION: 1. Uncomplicated sonographically-guided core biopsy of the left breast. The 2-view direct digital postprocedure mammogram reveals satisfactory positioning of the biopsy clip. 2. Final pathology results are pending. A separate report with final recommendations will be issued once these results are made available. Electronically signed by: Elda Graham DO 11/05/2024 11:55 AM EDT Dictated By: Edla Graham DO Signed By: <Electronically signed by Elda Graham DO in OV> 11/05/24 1155 DD/ 0847 TD/TT: 11/05/24 1000 Investor Relations Director: Procedure Note Donotuseinterpreter, Image - 11/05/2024 [facility] [address] [place], [place] [id number] Mammography Report Signed Patient: Delilah Sevilla#: [id number] 39 : 8Acct:[id number] Age/Sex: 69 / FADM Date: 11/05/24 Loc: HO.MAMMO Attending Dr: Leo Sevilla MD Ordering Physician: Leo Sevilla MDResults: 1Neg ative Date of Service: 11/05/24Follow Up: 1 Year From Orig inal Mammogram Procedure(s): MM tomosynthesis diagnostic LT Accession Number(s): [id number] cc: Cristy Monet MD; Leo Sevilla MD PROCEDURE: ULTRASOUND-GUIDED LEFT BREAST BIOPSY CLINICAL INFORMATION: Solid irregular mass at 2:00 8 cm from the nipple here for ultrasound-guided core needle biopsy. COMPARISON: [facility]ors on PACS. TECHNIQUE: The details of the procedure, as well as the risks, benefits, and alternatives to the procedure were explained to the patient in detail and all of her questions were answered, after which, written informed consent was obtained. PROCEDURE: Prior to the procedure, sonography revealed a solid irregular mass at 2:00 8 cm from the nipple. A time-out was performed, the lesion intended for biopsy was targeted and the skin of the left breast was then prepped and draped in the usual sterile fashion. Using sonographic guidance, sterile technique, and 1% lidocaine without epinephrine for local anesthesia, a total of 4 cores were obtained through the targeted area with a 14-gauge biopsy device. At the completion of tissue sampling, a single butterfly metallic clip was deposited at the biopsy site. An appropriate sample was obtained. The postprocedure 2-view direct digital mammogram reveals satisfactory positioning of the biopsy clip. The patient tolerated the procedure well and, after assuring adequate hemostasis, was discharged in good condition after reviewing postbiopsy breast care instructions. Final pathology results are pending. MM/MM tomosynthesis diagnostic LT IMPRESSION: 1. Uncomplicated sonographically-guided core biopsy of the left breast. The 2-view direct digital postprocedure mammogram reveals satisfactory positioning of the biopsy clip. 2. Final pathology results are pending. A separate report with final recommendations will be issued once these results are made available. Electronically signed by: Elda Graham DO 11/05/2024 11:55 AM EDT Dictated By: Elda Graham DO Signed By: <Electronically signed by Elda Graham DO in OV> 11/05/24 1155 DD/ 0847 TD/TT: 11/05/24 1000 Investor Relations Director: [facility] External Provider IMG BI PROCEDURES Final Result * (ABNORMAL) Hemoglobin and Hematocrit (11/04/2024 10:10 AM EDT) Hemoglobin 12.2 12.0 - 16.0 g/dl [facility] Hematocrit 35.6(L) 37.0 - 47.0 % [facility] Blood Venous blood specimen / Unknown 11/04/2024 10:10 AM EDT 11/04/2024 11:03 AM EDT us Cristy Monet MD LAB BLOOD ORDERABLES Fin al Result [facility] [address] [place] [phone] * Basic Metabolic Panel (11/04/2024 10:10 AM EDT) Only the most recent of3 resultswithin the time period is included. Sodium 135 135 - 145 mmol/L [facility] Potassium 4.3 3.3 - 5.1 mmol/L [facility] Chloride 102 96 - 108 mmol/L [facility] Carbon Dioxide 25 22 - 29 mmol/L [facility] Anion Gap 12 12 - 20 [facility] Urea Nitrogen (BUN) 13 9 - 16 mg/dL [facility] Creatinine, Serum 0.80 0.5 - 1.4 mg/dL [facility] Estimated Glomerular Filt Rate >60 [facility] Comment:Chronic Kidney Disea se: Estimated GFR < 60 mL/min/1.45f3Odctwe Kidney Disease: Estimated GFR < 15 mL/min/1.73m2 Glucose 94 60 - 115 mg/dL [facility] Calcium 9.1 8.4 - 10.2 mg/dL [facility] Blood Venous blood specimen / Unknown 11/04/2024 10:10 AM EDT 11/04/2024 11:01 AM EDT us Cristy Monet MD LAB BLOOD ORDERABLES Fin al Result [facility] [address] [place] [address] [phone] * BI US Breast Limited Left (10/15/2024 1:22 PM EDT) Anatomical Region Laterality Modality Breast Left Ultrasound 10/15/2024 1:22 PM EDT Narrative 10/15/2024 2:17 PM EDT [facility] [address] [place] [address] Ultrasound Report Signed Patient: Delilah Sevilla MR#: [id number] 39 : 1955 Acct:[id number] Age/Sex: 69 / F ADM Date: 10/15/24 Loc: HO.MAMMO Attending Dr: Cristy Monet MD Ordering Physician: Cristy Monet MD Date of Service: 10/15/24 Procedure(s): US breast LT limited mamm only Accession Number(s): [id number] cc: Cristy Monet MD EXAMINATION: MM DIAGNOSTIC [...] 10/15/24 1414 DD/ 1322 TD/TT: 10/15/24 1358 Investor Relations Director: Procedure Note Donotuseinterpreter, Image - 10/16/2024 [facility] [address] [place] [address] Ultrasound Report Signed Patient: Ai Sevilla#: [id number] [birth year] : 8Acct:[id number] Age/Sex: 69 / FADM Date: 10/15/24 Loc: HO.MAMMO Attending Dr: Cristy Monet MD Ordering Physician: Cristy Monet MD Date of Service: 10/15/24 Procedure(s): US breast LT limited mamm only Accession Number(s): [id number] cc: Cristy Monet MD EXAMINATION: MM DIAGNOSTIC [...] 10/15/24 1414 DD/ 1322 TD/TT: 10/15/24 1358 Investor Relations Director: us Cristy Monet MD IMG US PROCEDURES Final Result * US RENAL DOPPLER (10/01/2024 1:12 PM EDT) Anatomical Region Laterality Modality Abdomen Ultrasound 10/01/2024 1:12 PM EDT Narrative 10/01/2024 1:13 PM EDT [address] [address] Ultrasound Report Signed Patient: Delilah Sevilla MR#: [id number] 39 : 1955 Acct:[id number] Age/Sex: 68 / F ADM Date: 10/01/24 Loc: HO.US Attending Dr: Cristy Monet MD Ordering Physician: Cristy Monet MD Date of Service: 10/01/24 Procedure(s): US renal doppler Accession Number(s): [id number] cc: Cristy Monet MD CLINICAL HISTORY: resistent [...] 10/01/24 1313 DD/ 1312 TD/TT: 10/01/24 1312 Investor Relations Director: Procedure Note Donotuseinterpreter, Image - 10/01/[address] [address] Ultrasound Report Signed Patient: Delilah SevillaMR#: [id number] 39 : 1955cct:[id number] Age/Sex: 68 / FADM Date: 10/01/24 Loc: HO.US Attending Dr: Cristy Monet MD Ordering Physician: Cristy Monet MD Date of Service: 10/01/24 Procedure(s): US renal doppler Accession Number(s): [id number] cc: Cristy Monet MD CLINICAL HISTORY: resistent [...] 10/01/24 1313 DD/ 1312 TD/TT: 10/01/24 1312 Investor Relations Director: us Cristy Monet MD IMG US PROCEDURES Final Result * (ABNORMAL) Urinalysis, Complete, with Reflex to Culture (08/15/2024 12:20 PM EDT) Color Urine Yellow [facility] Appearance Urine Clear [facility] PH 5.5 5.0 - 9.0 [facility] Glucose Urine UA Negative Negative mg/dL [facility] Urine Blood Small (1+)(A) Negative [facility] Specific [place] - Urine 1.015 1.005 - 1.025 [facility] Urine Protein 30 (1+)(A) Neg-Trace mg/dL [facility] Urine Ketones Trace Negative mg/dL [facility] Nitrite Urine Negative Negative [facility] Leukocyte Esterase Urine Negative Negative [facility] RBC Urine 0-2 0 - 2 /HPF [facility] Urine WBC 0-5 0 - 5 /HPF [facility] Urine Squamous Epithelial Cell 3-5 0 - 2 /HPF [facility] Urine Bacteria None Seen None Seen [facility] Hyaline Casts, Urine 3-5 0 - 2 /LPF [facility] 08/15/2024 12:2 0 PM EDT 08/15/2024 12:22 PM EDT Narrative [facility] - 08/15/2024 12:44 PM EDT Urine, Clean Catch us Generic External Data Provider LAB URINE ORDERAB LES Final Result Performing Organization Address City/State/[facility] Co de Phone Number [facility] [address] [place] [phone] * CT Abdomen Pelvis w/o Contrast (08/15/2024 10:22 AM EDT) Anatomical Region Laterality Modality Body, Pelvis, Abdomen Computed T omography 08/15/2024 10:2 2 AM EDT Narrative 08/15/2024 12:00 PM EDT [address] [address] [address] Scan Report Signed Patient: Delilah Sevilla MR#: [id number] 39 : 1955 Acct:[id number] Age/Sex: 68 / F ADM Date: 08/15/24 Loc: HO.ED Attending Dr: Ordering Physician: Araceli Morris Date of Service: 08/15/24 Procedure(s): CT abdomen pelvis wo IV con Accession Number(s): [id number] cc: Cristy Monet MD; Araceli Morris Report Number: [id number]: Total DLP = 318.00 mGy-cm EXAMINATION: CT [...] 08/15/24 1158 DD/ 1022 TD/TT: 08/15/24 1135 Investor Relations Director: Procedure Note Donotuseinterpreter, Image - 08/15/[address] [address] [address] Scan Report Signed Patient: Ai Sevilla#: [id number] [birth year] : 8Acct:[id number] Age/Sex: 68 / FADM Date: 08/15/24 Loc: HO.ED Attending Dr: Ordering Physician: Araceli Morris Date of Service: 08/15/24 Procedure(s): CT abdomen pelvis wo IV con Accession Number(s): [id number] cc: Cristy Monet MD; Araceli Morris Report Number: [id number]: Total DLP = 318.00 mGy-cm EXAMINATION: CT [...] 08/15/24 1158 DD/ 1022 TD/TT: 08/15/24 1135 Investor Relations Director: [facility] External Provider IMG CT PROCEDURES Final Result * High Sensitivity Troponin I (08/15/2024 9:42 AM EDT) TROPONIN I HIGH SENSITIVITY 13.7 <3.5 - 17.0 ng/L [facility] Comment:The Cade high sens itivity Troponin-I results should beused in conjunction with other diagnostic information suchas ECG, clinical observations and information, and patientsymptoms to aid in the diagnosis of [place]. 08/15/2024 9:42 AM EDT 08/15/2024 9:45 AM EDT Generic External Data Provider LAB BLOOD ORDERAB LES Final Result [facility] [address] [place] [address] [phone] * (ABNORMAL) CBC auto differential (08/15/2024 9:42 AM EDT) White Blood Count 14.0(H) 4.8 - 10.8 X10*3/uL [facility] Red Blood Count 4.71 4.20 - 5.50 X10*6/uL [facility] Hemoglobin 14.9 12.0 - 16.0 g/dl [facility] Hematocrit 42.1 37.0 - 47.0 % [facility] Mean Corpuscular Volume 89.4 80.0 - 98.0 fL [facility] Mean Corpuscular Hemoglobin 31.6 27.0 - 33.0 pg [facility] Mean Corpuscular HGB Conc 35.4(H) 31.0 - 35.0 g/dl [facility] Red Cell Distribution Width 12.1 11.0 - 16.0 % [facility] Platelet Count 346 160 - 400 X10*3/uL [facility] Mean Platelet Volume 8.6(L) 9.4 - 12.3 fL [facility] Neutrophils Percent Auto 75.0(H) 45 - 73 % [facility] Imm Gran Pct Auto 0.3 0.0 - 0.4 % [facility] Lymphocytes Percent Auto 15.6(L) 20 - 40 % [facility] Monocytes Percent Auto 8.7 2 - 11 % [facility] Eosinophils Percent Auto 0.0 0 - 4 % [facility] Basophils Percent Auto 0.4 0 - 2 % [facility] NRBC Pct Auto 0.0 0.0 - 0.2 /100WBC [facility] Neutrophils Absolute Auto 10.5(H) 2.0 - 8.3 x10*3/uL [facility] Imm Gran Abs Auto 0.04(H) 0.00 - 0.03 X10*3/uL [facility] Lymphocytes Absolute Auto 2.2 1.2 - 4.9 X10*3/uL [facility] Monocytes Absolute Auto 1.2 0.1 - 1.2 X10*3/uL [facility] Eosinophils Absolute Auto 0.0 0.0 - 0.4 X10*3/uL [facility] Basophils Absolute Auto 0.1 0.0 - 0.2 X10*3/uL [facility] NRBC Abs Auto 0.000 0.0 - 0.012 X10*3/uL [facility] 08/15/2024 9:42 AM EDT 08/15/2024 9:45 AM EDT Generic External Data Provider LAB BLOOD ORDERAB LES Final Result Performing Organization Address City/[facility]/ZIP Co de Phone Number [facility] [address] [place] [phone] * Lipase (08/15/2024 9:42 AM EDT) Pathologist [facility] Lipase 76 8 - 78 U/L [facility] 08/15/2024 9:42 AM EDT 08/15/2024 9:45 AM EDT Generic External Data Provider LAB BLOOD ORDERAB LES Final Result Performing Organization Address [facility]/ZIP Co de Phone Number [facility] [address] [place] [phone] * (ABNORMAL) Hepatic Function Panel (08/15/2024 9:42 AM EDT) Bilirubin, Total 0.9 0.0 - 1.0 mg/dL [facility] Bilirubin, Direct 0.3 0.0 - 0.5 mg/dL [facility] Aspartate Amino Transferase 40(H) 5 - 31 U/L [facility] Alanine Aminotransferase 29 0 - 31 U/L [facility] Total Protein 8.5(H) 6.5 - 8.0 g/dL [facility] Albumin Level 5.1(H) 3.5 - 5.0 g/dL [facility] Alkaline Phosphatase 114 39 - 117 U/L [facility] 08/15/2024 9:42 AM EDT 08/15/2024 9:45 AM EDT us Generic External Data Provider LAB BLOOD ORDERAB LES Final Result Performing Organization Address [facility]/ZIP Co de Phone Number [facility] [address] [place] [address] [phone] * (ABNORMAL) Hm Colonoscopy (12/25/2023) Colonoscopy Abnormal( A) Normal [facility] Comment:TA + hyperplastic po lyps us Cristy Monet MD HEALTH MAINTENANCE Final Result Performing Organization Address [facility] Co de Phone Number [facility] [address] [place] [address] [phone] * (ABNORMAL) Lipid Panel, Standard (12/19/2023 9:22 AM EDT) Triglycerides 79 <150 mg/dL [facility] Comment:Desirable Triglyceri de: less than 150 mg/dLBorderline High Triglyceride 150-199 mg/dLHigh Triglyceride: 200-499 mg/dLVery High Triglyceride: greater than or equal to 5OO mg/dL Cholesterol 224(H) <200 mg/dL [facility] Comment:Desirable Cholestero l: less than 200 mg/dLBorderline High Cholesterol: 200-239 mg/dLHigh Cholesterol: greater than 239 mg/dL LDL Cholesterol Calculated 117(H) <100 mg/dL [facility] Comment:Desirable LDL: less than 100 mg/dLNear Optimal/Above Optimal LDL: 110- 129 mg/dLBorderline High LDL: 130-159 mg/dLHigh LDL: 160-189 mg/dLVery High LDL: greater than or equal to 190 mg/dL HDL Cholesterol 92 >40 mg/dL [facility] Comment:Desirable HDL: great er than 40 mg/dL Note: This HDL assay may give artificially low results in patients with liver disease. 12/19/2023 9:22 AM EDT 12/19/2023 11:43 AM EDT Cristy Monet MD LAB BLOOD ORDERABLES Fin al Result Performing Organization Address [facility] Co de Phone Number [facility] [address] [place] [phone] * Hepatitis Panel, General (12/04/2023 9:36 AM EDT) Hepatitis A IgM Nonreactive Nonreactive [facility] Comment:IgM antibodies to MARTINES V not detected; does not exclude earlyacute or recovered HAV infection. ~Hepatitis B Surface Antibody REACTIVE Nonreactive [facility] Comment:REACTIVE: > 11.99 mI U/mL Hepatitis B Core Antibody Nonreactive Nonreactive [facility] Hepatitis C Antibody Nonreactive Nonreactive [facility] Comment:Antibodies to HCV no t detected; does not exclude early acuteHCV infection. Hepatitis B Surface Ag Negative Negative [facility] Blood 12/04/2023 9:36 AM EDT 12/04/2023 11:01 AM EDT Cristy Monet MD LAB BLOOD ORDERABLES Fin al Result Performing Organization Address [facility] de Phone Number [facility] [address] [place] [phone] * (ABNORMAL) ThinPrep?? Imaging Pap Refl HPV mRNA(if ASCUS,ASC- H,LSIL,HSIL,TWILA)Refl Genotype (10/18/2023 10:43 AM EDT) HPV nRNA E6/E7 Detected(A ) Not Detected [facility] Comment:Methodology: Transcr iption-Mediated AmplificationThis assay detects E6/E7 viral messenger RNA (mRNA) from 14high-risk HPV types (16,18,31,33,35,39,45,51,52,56,58,59,66,68).Cervical sources are required for HPV testing.If a vaginal source from a patient who has had atotal hysterectomy with removal of cervix wassubmitted, please contact the testing laboratoryfor alternative testing options.For additional information, please refer tohttp://education.Zura!/faq/AWK574r6(This link if provided for information/educational purposes only.)THIS TEST WAS PERFORMED AT:[facility] [address] [address]DOZQLJONES MEDINA MD HPV 16,18/45 NOT DETECTED NOT DETECTED [facility] Comment:Methodology: Transcr iption Mediated AmplificationCervical sources are required for HPV testing.If a vaginal source from a patient who has had atotal hysterectomy with removal of cervix wassubmitted, please contact the testing laboratoryfor alternative testing options.THIS TEST WAS PERFORMED AT:[facility] [address] [address]MIJKAJONES MEDINA MD SOURCE: SEE NOTE [facility] Comment:None given Report Status: [facility] Clinical Information: SEE NOTE [facility] Comment:None given LMP: SEE NOTE [facility] Comment:NONE GIVEN Prev. PAP: SEE NOTE [facility] Comment:NONE GIVEN Prev. BX: SEE NOTE [facility] Comment:NONE GIVEN Statement Of Adequacy: SEE NOTE [facility] Comment:Satisfactory for naheed luation.Endocervical/transformation zone componentpresent. General Categorization: SEE NOTE(A) [facility] Comment:Cytology Results: Ep ithelial Cell Abnormality Interpretation/Result: SEE NOTE(A) [facility] Comment:Atypical Squamous Ce lls of UndeterminedSignificance (ASC-US) Cytology Comment SEE NOTE [facility] Comment:This Pap test has be en evaluated with computerassisted technology. Assistant Superintendent For Curriculum: SEE NOTE [facility] Comment:DCR, CT(ASCP)CT scre ening location: [place] [address] Review Assistant Superintendent For Curriculum: [facility] Pathologist SEE NOTE [facility] Comment:Valerio Romero M.D./M.S .,Board Certified in Anatomic Pathology andBoard Eligible Cytopathology(electronic signature)Consulting [address] [phone] PAP Infection TNP [facility] See Note SEE NOTE [facility] Comment:EXPLANATORY NOTE:The Pap is a screening test for cervical cancer. It isnot a diagnostic test and is subject to false negativeand false positive results. It is most reliable when asatisfactory sample, regularly obtained, is submittedwith relevant clinical findings and history, and whenthe Pap result is evaluated along with historic andcurrent clinical information.THIS TEST WAS PERFORMED AT:[facility] ANATOMIC PATHOLOGY[address] [place] [address]GJCXHLETICIA REYEZ MD 10/18/2023 10:4 3 AM EDT 10/18/2023 4:30 PM EDT Narrative [facility] - 10/31/2023 11:52 AM EDT SEE SCANNED RESULTS IN EMR us Cristy Monet MD LAB CYTOLOGY ORDERABLES Final Result [facility] [address] [place] [phone] from Last 3 Months or Most Recently Relevant to Health Maintenance Insurance [facility] [employer] (O D-SNP) SANDRA RUIZ [id number] [facility] STAND[facility] Care Teams Metal Furniture Assembly Supervisor Relationship Specialty Start Date End Date Cristy Monet MD [address] [place] [address] PCP - General Family Medicine 12/12/19 Sung Rand, PharmD [address] [place] [address] Pharmacist Internal Medicine 05/27/24
--- OUTSIDE RECORDS SUMMARY | 2024-11-10 15:42 | XMS_ITS | Encounter Summary ---
Author Organization [employer] Address [address] [facility] [address] [place] [address] Care Team Providers Care Pediatric Nurse Practitioner Name Role Phone Cristy Monet MD Primary Care Provider + Sung Rand PharmD Unavailable [phone] Reason for Visit * Reason Comments Med Refill Encounter Details Date Type Department Care Team ([facility] st Contact Info) Description 01/14/2024 Refill [facility] [address] [place], [place] [phone] Cristy Monet MD [address] [place], [place] [phone] Social History Tobacco Use Types Packs/Day Years [...] Description 11/11/2024 10:30 AM EDT Office Visit [facility] [address] [place] [phone] Cristy Monet MD [address] [place] [phone] 12/11/2024 11:00 AM EDT Telemedicine [facility] [address] [place] [phone] Sung Rand PharmD [address] [place] [phone] 03/16/2025 11:00 AM EST Office Visit [facility] [address] [place] [address] [place] Colbert, OD [address] [place] [address] documented as of this encounter Visit Diagnoses Not on filedocumented in this encounter Care Teams Pediatric Nurse Practitioner Relationship Specialty Start Date End Date Cristy Monet MD [address] [place] [phone] PCP - General Family Medicine 12/12/19 Sung Rand, DaeD [address] [place] [phone] Pharmacist Internal Medicine 05/27/24 documented as of this encounter
--- OUTSIDE RECORDS SUMMARY | 2024-11-10 15:42 | XMS_ITS | Encounter Summary ---
Author Organization [employer] Address [address] [place] [address] Care Team Providers Care Malt Roaster Name Role Phone Cristy Monet MD Primary Care Provider + Sung Rand PharmD Unavailable [phone] Reason for Visit * Reason Comments Med Refill Encounter Details Date Type Department Care Team (Late st Contact Info) Description 02/03/2024 Refill [facility] [address] [place], [place] [phone] Niru Oakes MD [address] [place] [address] Resistant hypertension Social History Tobacco Use Types [...] Description 11/11/2024 10:30 AM EDT Office Visit [facility] [address] [place] [address] Cristy Monet MD [address] [place] [address] 12/11/2024 11:00 AM EDT Telemedicine [facility] [address] [place] [address] Sung Rand, Bill [address] [place] [address] 03/16/2025 11:00 AM EST Office Visit [facility] [address] [place] [address] [place], [place], OD [address] [place] [address] documented as of this encounter Visit Diagnoses Diagnosis Resistant hypertension documented in this encounter Care Teams Malt Roaster Relationship Specialty Start Date End Date Cristy Monet MD [address] [place] [address] PCP - General Family Medicine 12/12/19 Sung Rand, PharmD [address] [place] [address] Pharmacist Internal Medicine 05/27/24 documented as of this encounter
--- OUTSIDE RECORDS SUMMARY | 2024-11-10 15:42 | XMS_ITS | Encounter Summary ---
Author Organization [employer] Address [address] [facility] [address] [place] [address] Care Team Providers Care Plate Sensitizer Name Role Phone Cristy Monet MD Primary Care Provider + Sung aRnd PharmD Unavailable [phone] Reason for Visit * Reason Onset Date Comments Chart Prep 11/10/2024 Encounter Details Date Type Department Care Team (Late st Contact Info) Description 11/10/2024 Telephone [facility] [address] [place] [address] Cristy Monet MD [address] [place], [place] [phone] Chart Prep Social History Tobacco Use Types Packs/Day Years [...] encounter Miscellaneous Notes * Telephone Encounter - Lydia Hernández MA - 11/10/2024 9:37 AM EDT Chart Prep Labs: done Images: done Referrals: complete Vaccines due: Covid, Flu, PCV20, RSV, and Zoster Screenings: pap smear Overdue care gaps: SBIRT, PHQ-9, and AR-7 documented in this encounter Plan of Treatment Upcoming Encounters Date Type Department Care Team (Late st Contact Info) Description 11/11/2024 10:30 AM EDT Office Visit [facility] [address] [place] [phone] Cristy Monet MD [address] [place] [phone] 12/11/2024 11:00 AM EDT Telemedicine [facility] [address] [place] [phone] Sung Rand, PharmD [address] [place] [phone] 03/16/2025 11:00 AM EST Office Visit [facility] OPTOMETRY [address] [place] [address] [place] Colbert, OD [address] [place] [address] documented as of this encounter Visit Diagnoses Not on filedocumented in this encounter Care Teams Plate Sensitizer Relationship Specialty Start Date End Date Cristy Monet MD [address] [place] [address] PCP - General Family Medicine 12/12/19 Sung Rand, DaeD [address] [place] [phone] Pharmacist Internal Medicine 05/27/24 documented as of this encounter
--- OUTSIDE RECORDS SUMMARY | 2024-11-10 15:42 | XMS_ITS | Encounter Summary ---
Author Organization [employer] Address [address] [facility] [address] [place] [address] Care Team Providers Care Black Studies Professor Name Role Phone Cristy Monet MD Primary Care Provider + Sung Rand PharmD Unavailable [phone] Encounter Details Date Type Department Care Team ([facility] st Contact Info) Description 11/08/2024 Results Follow-Up [facility] [address] [place] [address] Cristy Monet MD [address] [place], [place] [phone] Hematoxylin and Eosin Stain Social History Tobacco Use Types Packs/Day Years [...] Encounter Note - Cristy Monet MD - 11/08/2024 12:32 PM EDT 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 Please call Dr Dwyer's office and see if they plan a fu appt with her or should we refer her for further fu? Will they do theoncology referral as well to complete the staging and POC rx or would they do it themselves? Pleaselet me know so that I call patient with POC, unless she has appt with them early this week. documented in this encounter Plan of Treatment Upcoming Encounters Date Type Department Care Team (Late st Contact Info) Description 11/11/2024 10:30 AM EDT Office Visit [facility] [address] [place] [phone] Cristy Monet MD [address] [place] [phone] 12/11/2024 11:00 AM EDT Telemedicine [facility] [address] [place] [phone] Sung Rand, PharmD [address] [place] [address] 03/16/2025 11:00 AM EST Office Visit [facility] [address] [place], [place] [phone] [place] Colbert, OD [address] [place] [address] documented as of this encounter Visit Diagnoses Not on filedocumented in this encounter Care Teams Black Studies Professor Relationship Specialty Start Date End Date Cristy Monet MD [address] [place], [place] [phone] PCP - General Family Medicine 12/12/19 Sung Rnad, PharmD [address] [place] [address] [phone] Pharmacist Internal Medicine 05/27/24 documented as of this encounter
--- OUTSIDE RECORDS SUMMARY | 2024-11-10 15:42 | XMS_ITS | Encounter Summary ---
Author Organization [employer] Address 75 [facility] 7t [place] [address] Care Team Providers Care Quality Internship Name Role Phone Cristy Monet MD Primary Care Provider + Sung Rand PharmD Unavailable [phone] Encounter Details Date Type Department Care Team (Late st Contact Info) Description 03/28/2022 Orders Only [facility] MEDICINE [address] [place] [address] [phone] Odilia Smiley LPN Social History Tobacco Use [...] 10:30 AM EDT Office Visit [facility] MEDICINE [address] [place] [phone] Cristy Monet MD [address] [place] [address] [phone] 12/11/2024 11:00 AM EDT Telemedicine [facility] MEDICINE [address] [place] [address] [phone] Sung Rand, PharmD [address] [place] [address] [phone] 03/16/2025 11:00 AM EST Office Visit [facility] OPTOMETRY [address] [place] [address] Indiana Colbert, OD 230 [place] [address] documented as of this encounter Visit Diagnoses Not on filedocumented in this encounter Care Teams Quality Internship Relationship Specialty Start Date End Date Cristy Monet MD 230 [place] [address] PCP - General Family Medicine 12/12/19 Sung Rand, DaeD [address] [place] [address] [phone] Pharmacist Internal Medicine 05/27/24 documented as of this encounter
--- OUTSIDE RECORDS SUMMARY | 2024-11-10 15:42 | XMS_ITS | Encounter Summary ---
Author Organization [employer] Address 75 [facility] 7t [place] [address] Care Team Providers Care Director Of Entertainment Name Role Phone Cristy Monet MD Primary Care Provider + Sung Rand PharmD Unavailable [phone] Encounter Details Date Type Department Care Team ([facility] Contact Info) Description 09/13/2022 Orders Only [facility] MEDICINE [address] [place] [address] [phone] Cristy Monet MD [address] [place], [place] [phone] Hyperkalemia (Primary Dx); Hypercalcemia Social History Tobacco [...] Upcoming Encounters Date Type Department Care Team ([facility] Contact Info) Description 11/11/2024 10:30 AM EDT Office Visit [facility] MEDICINE [address] [place] [address] [phone] Cristy Monet MD [address] [place], [place] [phone] 12/11/2024 11:00 AM EDT Telemedicine [facility] MEDICINE 230 [place] [address] Sung Rand, DaeD [address] [place] [address] 03/16/2025 11:00 AM EST Office Visit [facility] OPTOMETRY [address] [place], [place] [phone] Filemon, [place], OD 230 [place], [place] [phone] documented as of this encounter Procedures Procedure Name Priority Date/Time Associated Diagnosis Comments BASIC METABOLIC PANEL Routine 09/25/2022 8:41 AM EDT Hyperkalemia Hypercalcemia documented in this encounter Results * (ABNORMAL) Basic Metabolic Panel (09/25/2022 8:41 AM EDT) Sodium 138 135 - 145 mmol/L [facility] Potassium 5.0 3.3 - 5.1 mmol/L [facility] Chloride 102 96 - 108 mmol/L [facility] Carbon Dioxide 30(H) 22 - 29 mmol/L [facility] Anion Gap 11(L) 12 - 20 [facility] Urea Nitrogen (BUN) 15 9 - 16 mg/dL [facility] Creatinine, Serum 0.78 0.5 - 1.4 mg/dL [facility] Estimated Glomerular Filt Rate >60 [facility] Comment:NOTE: For -Am erican individuals, multiply the result by 1.210.Chronic Kidney Disease: Estimated GFR < 60 mL/min/1.37m4Yppqri Kidney Disease: Estimated GFR < 15 mL/min/1.73m2 Glucose 96 60 - 115 mg/dL [facility] Calcium 9.6 8.4 - 10.2 mg/dL [facility] Blood Venous blood specimen / Unknown 09/25/2022 8:41 AM EDT 09/25/2022 11:03 AM EDT Cristy Monet MD LAB BLOOD ORDERABLES Fin al Result [facility] [address] [place] [address] [phone] documented in this encounter Visit Diagnoses Diagnosis Hyperkalemia- Primary Hyperpotassemia Hypercalcemia documented in this encounter Care Teams Director Of Entertainment Relationship Specialty Start Date End Date Cristy Monet MD [address] [place] [address] PCP - General Family Medicine 12/12/19 Sung Rand, DaeD [address] [place] [address] Pharmacist Internal Medicine 05/27/24 documented as of this encounter
--- OUTSIDE RECORDS SUMMARY | 2024-11-10 15:42 | XMS_ITS | Encounter Summary ---
Author Organization [employer] Address [address] [facility] [address] 7t [place] [address] Care Team Providers Care Communications Media Professor Name Role Phone Cristy Monet MD Primary Care Provider + Sung Rand PharmD Unavailable [phone] Encounter Details Date Type Department Care Team (Late st Contact Info) Description 04/17/2024 Orders Only [facility] MEDICINE [address] [place], [place] [phone] ProviderIda MD Social History Tobacco Use Types [...] Description 11/11/2024 10:30 AM EDT Office Visit [facility] MEDICINE [address] [place] [address] Cristy Monet MD [address] [place] [address] 12/11/2024 11:00 AM EDT Telemedicine [facility] MEDICINE [address] [place] [address] Sung Rand, PharmD [address] [place] [address] 03/16/2025 11:00 AM EST Office Visit [facility] OPTOMETRY [address] [place] [address] Filemon, [place], OD [address] [place] [address] documented as of this encounter Procedures Procedure Name Priority Date/Time Associated Diagnosis Comments COLPOSCOPY Routine 04/14/2024 3:06 PM EST documented in this encounter Results * Colposcopy (04/14/2024 3:06 PM EST) us Historical Provider IN CLINIC/BEDSIDE ORDERAB LES Final Result documented in this encounter Visit Diagnoses Not on filedocumented in this encounter Care Teams Communications Media Professor Relationship Specialty Start Date End Date Cristy Monet MD [address] [place] [phone] PCP - General Family Medicine 12/12/19 Sung Rand, PharmD [address] [place] [phone] Pharmacist Internal Medicine 05/27/24 documented as of this encounter
--- OUTSIDE RECORDS SUMMARY | 2024-11-10 15:42 | XMS_ITS | Encounter Summary ---
Author Organization [employer] Address 75 [facility] 7t [place] [address] Care Team Providers Care Towel Inspector Name Role Phone Cristy Monet MD Primary Care Provider + Sung Rand PharmD Unavailable [phone] Encounter Details Date Type Department Care Team (Late st Contact Info) Description 11/05/2024 Orders Only GENERIC EXTERNAL DATA DEPARTMENT [...] Description 11/11/2024 10:30 AM EDT Office Visit [facility] MEDICINE [address] [place] [address] Cristy Monet MD 230 [place] [address] 12/11/2024 11:00 AM EDT Telemedicine [facility] MEDICINE [address] [place] [address] Sung Rand, PharmD 230 [place] [address] 03/16/2025 11:00 AM EST Office Visit [facility] OPTOMETRY [address] [place] [address] [place] Colbert, OD 230 [place] [address] documented as of this encounter Procedures Procedure Name Priority Date/Time Associated Diagnosis Comments HEMATOXYLIN AND EOSIN STAIN Routine 11/05/2024 9:37 AM EDT documented in this encounter Results * Hematoxylin and Eosin Stain (11/05/2024 9:37 AM EDT) 11/05/2024 9:37 AM EDT 11/05/2024 10:32 AM EDT [facility] - 11/07/2024 10:35 AM EDT ----- ------- Name: Delilah Sevilla Age/Sex: 69/F : 1955 Unit#: [id number] Attend Dr: Leo Sevilla MD Re11/05/24 Status: [facility] REF Location: HO.MAMMO Disch: ----- ------- SPEC : [id number] RECD: 11/05/24 STATUS: PANKAJ [place] NUM: [id number] [place]: 11/05/24 [facility] DR: Elda Graham DO ENTERED: 11/05/24 SP TYPE: Surgical OTHR DR: Cristy Monet MD, Francis MD ORDERED: HE Stain/2, Gross Micro L4, ER, AR, IHC/6, E-cadherin, Sophia-3, Ki-67, [id number] COMMENTS: As per the specimen requisition slip the specimen is collected at 0937 and placed in formalin at 0941. Diagnosis Breast, left, 2:00, core biopsy: -Invasive lobular carcinoma, MSBR grade 2. Synoptic report Procedure: Core biopsy Specimen laterality: Left Histologic type: Invasive lobular carcinoma. Histologic grade (Kopperl/MSBR histologic score): 2 - Glandular/tubular differentiation: Score: [...] 20, 15%) -Controls (external and internal): Appropriate [employer] HER2 FISH analysis pending; addendum to follow. [...] Delilah Sevilla Age/Sex: 69/F : 1955 Unit#: [id number] Attend Dr: Leo Sevilla MD Re11/05/24 Status: [facility]: ----- ------- SPEC : [id number] RECD: 11/05/24 STATUS: PANKAJ [place] NUM: [id number] [place]: 11/05/[address]: Elda Graham DO ENTERED: 11/05/24-1034 SP TYPE: Surgical OTHR DR: Cristy Monet MD, Francis MD ORDERED: HE Stain/2, Gross Micro L4, ER, AR, IHC/6, E-cadherin, Sophia-3, Ki-67, [id number] COMMENTS: As per the specimen requisition slip [...] automated immunostain methods: Estrogen receptor: Clone SP1; Lengby CONFIRM [facility] [place] DAB Progesterone receptor: Clone 1E2; Lengby CONFIRM [facility] [place] DAB HER2: FDA-approved [place] PATHWAY anti-HER-2/robert (4B5) Monoclonal; [facility] [place] DAB Controls are performed and evaluated for [...] Delilah Sevilla Age/Sex: 69/F : 1955 Unit#: [id number] Attend Dr: Leo Sevilla MD Re11/05/24 Status: DEP REF Location: HO.MAMMO Disch: ----- ------- SPEC : [id number] RECD: 11/05/24 STATUS: PANKAJ RELes NUM: [id number] [place]: 11/05/[address]: Elda Graham DO ENTERED: 11/05/24 SP TYPE: Surgical OTHR DR: Cristy Monet MD, Francis MD ORDERED: HE Stain/2, Gross Micro L4, ER, AR, IHC/6, E-cadherin, Sophia-3, Ki-67, [id number] COMMENTS: As per the specimen requisition slip [...] and Progesterone Receptor Testing in Breast Cancer: [place] Society of Clinical Oncology/College of [place] Pathologists Guideline Update. Arch of Pathol Lab Med. 2020; 144(5): 545-563. Pee PRATT, Livier ALBRECHT, Katelin MAYERS, et al. Her2 testing in breast cancer: [place] Society of Clinical Oncology/College of [place] Pathologists clinical practice guideline focused update. Arch Pathol Lab Med. 2018; 142(11): 4623-8109. Arturo N, Akanksha P, et al. Adjuvant abemaciclib combined with endocrine therapy for high- risk early breast cancer: updated efficacy and Ki-67 analysis from the [facility]. Sydnie Oncol. 2020;32(12):2907-5653. Livier MORTENSEN, [place] AGUILERA, et al. ASCO/CAP Guideline Recommendations for Immunohistochemical Testing of Estrogen and Progesterone Receptors in Breast Cancer. J Clin Oncol, 28 (16), 2010: 1026-2238. This case was reviewed intradepartmentally. Case discussed with Drew Graham and Roel by secure text by Dr. Diehl on 11/06/2024 at 12:07 pm. Special studies ordered and performed: Immunostains for ER, AR, HER2, Ki 67, E-cadherin, and GATA3 on A1. CONTINUED ON NEXT PAGE ----- ------- Name: Delilah Sevilla Age/Sex: 69/F : 1955 Unit#: [id number] Attend Dr: Leo Sevilla MD Re11/05/24 Status: [facility]P [facility] Disch: ----- ------- SPEC : [id number] RECD: 11/05/24 STATUS: PANKAJ [place] NUM: [id number] [place]: 11/05/24 [facility] DR: Elda Graham DO ENTERED: 11/05/24 SP TYPE: Surgical OTHR DR: Cristy Monet MD, Francis MD ORDERED: HE Stain/2, Gross Micro L4, ER, AR, IHC/6, E-cadherin, Sophia-3, Ki-67, BCG7PCR COMMENTS: As per the specimen requisition slip the specimen is collected at 0937 and placed in formalin at 0941. IHC S/NG Disclaimer NOTE: Unless otherwise stated, all tissue is formalin-fixed and paraffin-embedded. Some or all of the immunohistochemical tests reported herein may have been developed and their performance characteristics determined by [facility]. They have not been cleared or approved by the U.S. Food and Drug Administration (FDA). However, the FDA has determined that such clearance or approval is not necessary. This laboratory is certified under the Clinical Laboratory Improvement Amendments of 1988 (CLIA) as qualified to perform high complexity clinical laboratory testing. Copies To: Cristy Monet MD [facility] [address] [place] [address] Leo Sevilla MD [facility] [address] [place] [address] Elda Graham DO [address] [place] [phone] ----- ------- Signed (signature on file) Glo Fazal 11/07/24 1035 ----- ------- END OF REPORT us Generic External Data Provider LAB BLOOD ORDERAB LES Final Result [facility] [address] [place] [address] [phone] documented in this encounter Visit Diagnoses Not on filedocumented in this encounter Care Teams Towel Inspector Relationship Specialty Start Date End Date Cristy Monet MD [address] [place] [address] PCP - General Family Medicine 12/12/19 Sung Rand PharmD [address] [place] [address] Pharmacist Internal Medicine 05/27/24 documented as of this encounter
--- OUTSIDE RECORDS SUMMARY | 2024-11-10 15:42 | XMS_ITS | Encounter Summary ---
Author Organization [employer] Address 75 [facility] 7t [place] [address] Care Team Providers Care Staffing And Scheduling Coordinator Name Role Phone Cristy Monet MD Primary Care Provider + Sung Rand PharmD Unavailable [phone] Encounter Details Date Type Department Care Team ([facility] st Contact Info) Description 10/08/2024 Results Follow-Up [facility] MEDICINE [address] [place] [address] Cristy Monet MD [address] [place], [place] [phone] US RENAL DOPPLER Social History Tobacco Use [...] Description 11/11/2024 10:30 AM EDT Office Visit [facility] MEDICINE [address] [place] [address] Cristy Monet MD [address] [place] [address] 12/11/2024 11:00 AM EDT Telemedicine [facility] MEDICINE [address] [place] [address] Sung Rand, PharmD [address] [place] [address] 03/16/2025 11:00 AM EST Office Visit [facility] OPTOMETRY [address] [place] [address] [place] Colbert, OD 230 [place] [address] documented as of this encounter Visit Diagnoses Not on filedocumented in this encounter Care Teams Staffing And Scheduling Coordinator Relationship Specialty Start Date End Date Cristy Monet MD [address] [place] [address] PCP - General Family Medicine 12/12/19 Sung Rand, Bill [address] [place] [address] Pharmacist Internal Medicine 05/27/24 documented as of this encounter
--- OUTSIDE RECORDS SUMMARY | 2024-11-10 15:42 | XMS_ITS | Encounter Summary ---
Author Organization [employer] Address [address] [facility] [address] 7t [place] [address] Care Team Providers Care Plastics Fabricator Or Welder Name Role Phone Cristy Monet MD Primary Care Provider + Sung Rand PharmD Unavailable [phone] Encounter Details Date Type Department Care Team (Late st Contact Info) Description 06/09/2024 Orders Only [facility] [address] [place], [place] [phone] ProviderIda MD Social History Tobacco Use Types [...] EDT Office Visit [facility] MEDICINE [address] [place] [address] Cristy Monet MD 230 [place] [address] 12/11/2024 11:00 AM EDT Telemedicine [facility] MEDICINE [address] [place] [address] Sung Rand, PharmD [address] [place] [address] 03/16/2025 11:00 AM EST Office Visit [facility] OPTOMETRY [address] [place] [address] Indiana Colbert, OD [address] [place] [address] documented as of this encounter Procedures Procedure Name Priority Date/Time Associated Diagnosis Comments BIOPSY CERVIX Routine 05/02/2024 11:47 AM EST documented in this encounter Results * Biopsy cervix (05/02/2024 11:47 AM EST) us Historical Provider IN CLINIC/BEDSIDE ORDERAB LES Final Result documented in this encounter Visit Diagnoses Not on filedocumented in this encounter Care Teams Plastics Fabricator Or Welder Relationship Specialty Start Date End Date Cristy Monet MD [address] [place] [address] PCP - General Family Medicine 12/12/19 Sung Rand, Bill [address] [place] [address] Pharmacist Internal Medicine 05/27/24 documented as of this encounter
--- OUTSIDE RECORDS SUMMARY | 2024-11-10 15:42 | XMS_ITS | Encounter Summary ---
Author Organization [employer] Address 75 [facility] 7t [place] [address] Care Team Providers Care Director Work Name Role Phone Cristy Monet MD Primary Care Provider + Sung Rand PharmD Unavailable [phone] Encounter Details Date Type Department Care Team (Late st Contact Info) Description 07/07/2022 Orders Only [facility] MEDICINE [address] [place] [address] [phone] Odilia Smiley LPN Social History Tobacco Use [...] Office Visit [facility] MEDICINE [address] [place] [address] Cristy Monet MD [address] [place] [address] [phone] 12/11/2024 11:00 AM EDT Telemedicine [facility] MEDICINE [address] [place] [address] [phone] Sung Rand, PharmD [address] [place] [address] [phone] 03/16/2025 11:00 AM EST Office Visit [facility] OPTOMETRY [address] [place] [address] Indiana Colbert, OD [address] [place] [address] documented as of this encounter Procedures Procedure Name Priority Date/Time Associated Diagnosis Comments BI MAMMOGRAM SCREENING TOMOSYNTHESIS BILATERAL Routine 07/07/2022 1:05 PM EDT documented in this encounter Results * BI Mammogram Screening Tomosynthesis Bilateral (07/07/2022 1:05 PM EDT) Anatomical Region Laterality Modality Breast Bilateral Mammography 07/07/2022 1:05 PM EDT Narrative 07/10/2022 1:12 PM EDT [facility] [place] [address] Mammography Report Signed Patient: Delilah Sevilla MR#: [id number] 39 : 1955 Acct:[id number] Age/Sex: 66 / F ADM Date: 07/07/22 Loc: HO.MAMMO Attending Dr: Cristy Monet MD Ordering Physician: Cristy Monet MD Results: 2Be nign Findings Date of Service: 07/07/22 Follow Up: 1 Year From Orig ina Mammogram Procedure(s): MM tomosynthesis screening BI Accession Number(s): [id number] cc: Cristy Monet MD EXAMINATION: MM SCREENING [...] in OV> 07/10/22 1309 DD/ 1305 TD/TT: Biochemistry Technician: ACOSTA Procedure Note Donotuseinterpreter, Image - 08/31/2022 [facility] [address] [place] [address] Mammography Report Signed Patient: Delilah SevillaMR#: [id number] 39 : 8Acct:[id number] Age/Sex: 66 / FADM Date: 07/07/22 Loc: HO.MAMMO Attending Dr: Cristy Monet MD Ordering Physician: Cristy Monet MDResults: 2Be nign Findings Date of Service: 07/07/22Follow Up: 1 Year From Orig ina Mammogram Procedure(s): MM tomosynthesis screening BI Accession Number(s): [id number] cc: Cristy Monet MD EXAMINATION: MM SCREENING [...] in OV> 07/10/22 1309 DD/ 1305 TD/TT: Biochemistry Technician: ACOSTA [facility] External Provider IMG BI PROCEDURES Final Result documented in this encounter Visit Diagnoses Not on filedocumented in this encounter Care Teams Director Work Relationship Specialty Start Date End Date Cristy Monet MD [address] [place] [address] PCP - General Family Medicine 12/12/19 Sung Rand PharmD [address] [place] [address] Pharmacist Internal Medicine 05/27/24 documented as of this encounter
--- OUTSIDE RECORDS SUMMARY | 2024-11-10 15:42 | XMS_ITS | Encounter Summary ---
Author Organization [employer] Address 75 [facility] 7t [place] [address] Care Team Providers Care Stack Clerk Name Role Phone Cristy Monet MD Primary Care Provider + Sung Rand PharmD Unavailable [phone] Encounter Details Date Type Department Care Team ([facility] st Contact Info) Description 09/10/2023 Telephone [facility] [address] [place], [place] [phone] Cristy Monet MD [address] [place], [place] [phone] Social History Tobacco Use Types Packs/Day Years [...] Description 11/11/2024 10:30 AM EDT Office Visit [facility] [address] [place] [address] Cristy Monet MD 230 [place] [address] 12/11/2024 11:00 AM EDT Telemedicine [facility] [address] [place] [address] Sung Rand, PharmD [address] [place] [address] 03/16/2025 11:00 AM EST Office Visit [facility] OPTOMETRY [address] [place] [address] Filemon, [place], OD [address] [place] [address] documented as of this encounter Visit Diagnoses Not on filedocumented in this encounter Care Teams Stack Clerk Relationship Specialty Start Date End Date Cristy Monet MD [address] [place] [phone] PCP - General Family Medicine 12/12/19 Sung Rand, PharmD [address] [place] [address] Pharmacist Internal Medicine 05/27/24 documented as of this encounter
== END 2024-11-10 13:51 | disposition home or self-care (01) ==
LOC: HO.HGS 13:25
PROVIDERS: PCP Internal Medicine; Visit Provider Surgery
DX: C50.919 Malignant neoplasm of unspecified site of unspecified female breast (principal)
CPT/HCPCS: 99214

== ENCOUNTER → 2024-11-10 13:25 | Outpatient (BNVA) | payer OTHER, SELFPAY | PROVIDERS: PCP Internal Medicine; Visit Provider Surgery | DX: Z71.2 Person consulting for explanation of examination or test findings (principal); C50.412 Malignant neoplasm of upper-outer quadrant of left female breast | CPT/HCPCS: 99212 ==

== ENCOUNTER → 2024-11-13 14:15 | Outpatient (BNV) | payer OTHER, SELFPAY | PROVIDERS: PCP Internal Medicine; Referring Provider Internal Medicine; Visit Provider Internal Medicine Medical Oncology | DX: C50.412 Malignant neoplasm of upper-outer quadrant of left female breast (principal) | CPT/HCPCS: 99204 ==

== ENCOUNTER 2024-11-17 07:12 | Outpatient (BNV) | payer OTHER, SELFPAY | END 2024-11-17 07:51 | PROVIDERS: Admitting Provider Surgery; PCP Internal Medicine; Visit Provider Radiology Diagnostic Radiology | DX: C50.912 Malignant neoplasm of unspecified site of left female breast (principal) | CPT/HCPCS: 78195 ==

== ENCOUNTER 2024-11-17 07:12 | Inpatient (IN) | payer OTHER, SELFPAY ==
--- OUTSIDE RECORDS SUMMARY | 2024-11-12 12:23 | XMS_ITS | Encounter Summary ---
Author Organization [employer] Address 75 [facility] 7t [place] [address] Care Team Providers Care Medical/Surgery Registered Nurse Name Role Phone Cristy Monet MD Primary Care Provider + Sung Rand PharmD Unavailable [phone] Reason for Visit * Reason Comments Med Refill Encounter Details Date Type Department Care Team ([facility] st Contact Info) Description 01/14/2024 Refill [facility] MEDICINE [address] [place], [place] [phone] Cristy Monet MD 230 [place], [place] [phone] Social History Tobacco Use Types Packs/Day Years [...] Care Team (Late st Contact Info) Description 12/11/2024 11:00 AM EDT Telemedicine [facility] MEDICINE [address] [place] [address] Sung Rand, PharmSymone [address] [place] [address] 03/16/2025 11:00 AM EST Office Visit [facility] OPTOMETRY [address] [place], [place] [phone] Indiana Colbert, OD [address] [place] [address] documented as of this encounter Visit Diagnoses Not on filedocumented in this encounter Care Teams Medical/Surgery Registered Nurse Relationship Specialty Start Date End Date Cristy Monet MD [address] [place] [phone] PCP - General Family Medicine 12/12/19 Sung Rand, PharmD [address] [place] [address] [phone] Pharmacist Internal Medicine 05/27/24 documented as of this encounter
--- OUTSIDE RECORDS SUMMARY | 2024-11-12 12:23 | XMS_ITS | Encounter Summary ---
Author Organization [employer] Address 75 [facility] 7t [place] [address] Care Team Providers Care Dining Service Inspector Name Role Phone Cristy Monet MD Primary Care Provider + Sung Rand PharmD Unavailable [phone] Encounter Details Date Type Department Care Team ([facility] st Contact Info) Description 10/08/2024 Results Follow-Up [facility] MEDICINE [address] [place] [address] Cristy Monet MD 230 [place], [place] [phone] US RENAL DOPPLER Social History Tobacco Use [...] Info) Description 12/11/2024 11:00 AM EDT Telemedicine [facility] MEDICINE [address] [place] [address] Sung Rand, PharmD [address] [place] [address] 03/16/2025 11:00 AM EST Office Visit [facility] OPTOMETRY [address] [place] [address] Indiana Colbert, OD [address] [place] [address] documented as of this encounter Visit Diagnoses Not on filedocumented in this encounter Care Teams Dining Service Inspector Relationship Specialty Start Date End Date Cristy Monet MD [address] [place] [address] PCP - General Family Medicine 12/12/19 Sung Rand, PharmD [address] [place] [phone] Pharmacist Internal Medicine 05/27/24 documented as of this encounter
--- OUTSIDE RECORDS SUMMARY | 2024-11-12 12:23 | XMS_ITS | Clinical Summary ---
Author Organization [employer] Address [address] [facility] [address] [place] [address] Care Team Providers Care Art Supervisor Name Role Phone Cristy Monet MD Primary Care Provider + Sung Rand PharmD Unavailable [phone] Allergies Active Allergy Reactions Criticality Noted Date [...] wheezing. 18 g 3 06/27/19 24 Active Calcium Carb-Cholecalcif fred (Oyster Shell [...] TABLET BY MOUTH EVERY MORNING 90 tablet 08/01/19 25 Active ARIPiprazole (Abilify) 5 MG tablet Take 1 tablet (5 mg) by mouth with evening meal. 30 tablet 08/23/19 25 Active hydroxychloroqui ne (Plaquenil) 200 MG tablet TAKE 1 TABLET BY MOUTH ONCE DAILY SUNDAY THROUGH SUNDAY AND TAKE 1 TABLET TWICE DAILY SUNDAY AND SUNDAY Active alirocumab (Praluent) 75 MG/ML injectionIndicat ions:History of non-ST elevation myocardial infarction (NSTEMI) Inject 1 mL (75 mg) under the skin every 14 (fourteen) days. 2 mL 09/26/19 25 Active omeprazole (PriLOSEC) [address] capsule TAKE 1 CAPSULE BY MOUTH TWICE DAILY IN THE MORNING AND IN THE EVENING BEFORE MEALS 60 capsule 11/12/19 25 Active Incruse Ellipta 62.5 MCG/ACT aerosol powder INHALE 1 PUFF BY MOUTH EVERY DAY AT THE SAME TIME RINSE MOUTH AFTER USING 30 each 11/12/19 25 Active Umeclidinium [place] (Incruse Ellipta) 62.5 MCG/ACT aerosol powder Inhale 1 Inhalation Once per day. 1 each 09/17/19 24 025 Discontinued omeprazole (PriLOSEC) [address] capsule TAKE 1 CAPSULE BY MOUTH TWICE DAILY IN THE MORNING AND IN THE EVENING BEFORE MEALS 60 capsule 1 09/05/19 25 025 Discontinued Active Problems Problem Noted [...] this year, borders were negative Follow-up with [facility] in 6 months Memory impairment 07/14/2024 Assessment & Plan (08/22/2024 11:00 AM EDT): Doing well on aspirin 81 mg, tolerates well. Advised to optimal control risk factors as mentioned at previous visit. His CT scan of the brain is normal, not showing microvascular changes. She has a [employer] to help her with ADLs and remind [...] twice daily Will check regarding referral to enrollment nurse due to resistant hypertension (8 was done [...] seems to be better controlled, seen by tow motor driver Assessment & Plan (06/27/2023 10:39 AM EDT): - seen by rheumatology, reminded her to get labs done today and f/u with tow motor driver Assessment & Plan (06/27/2023 9:57 AM EDT): [...] asymptomatic I will refer to rheumatology in [facility] [place] [place] to improve compliance w/ appointment Assessment & [...] Encounters Date Type Department Care Team Description 11/11/2024 Refill [facility] [place] [place] [address] Cristy Monet MD 11/10/2024 Telephone [facility] [place] [place] [address] Cristy Monet MD Chart Prep 11/08/2024 Results Follow-Up [facility] [place] [place] [address] Cristy Monet MD Hematoxylin and Eosin Stain 11/05/2024 Orders Only GENERIC EXTERNAL DATA DEPARTMENT Provider, Generic External Data 10/27/2024 Telephone [facility] [place] [place] [address] Sung Rand, PharmD 10/23/2024 11:30 AM EDT Telemedicine [facility] [place] [place] [address] Sung Rand, PharmD Primary hypertension (Primary Dx) 10/15/2024 Orders Only [facility] [place] [address] Cristy Monet MD 10/08/2024 Telephone [facility] [place] [place] [address] Cristy Monet MD Normal imaging letter 10/08/2024 Results Follow-Up [facility] [place] [address] Cristy Monet MD US RENAL DOPPLER 09/25/2024 11:30 AM EDT Telemedicine [facility] [address] [place] [address] Sung Rand, PharmD Primary hypertension (Primary Dx); History of non-ST elevation myocardial infarction (NSTEMI) 09/04/2024 Refill [facility] [address] [place], [place] [phone] Cristy Monet MD 08/22/2024 10:30 AM EDT Office Visit [address] [phone] Cristy Monet MD HTN (hypertension), benign (Primary Dx); KATHARINE (acute kidney injury) (CMS/HCC); Substance abuse (CMS/HCC); Chronic obstructive pulmonary disease, unspecified COPD type (CMS/HCC); Memory impairment; Epigastric pain 08/22/2024 Travel 08/20/[address] [phone] Cristy Monet MD CHART PREP 08/15/2024 Orders Only GENERIC EXTERNAL DATA DEPARTMENT Provider, Generic External Data 08/13/2024 Patient Outreach [address] [phone] Cristy Monet MD Pre-visit Planning (SDOH screening [...] housing situation today? I have pool patricia 08/13/[address] you li [...] Info) Description 12/11/2024 11:00 AM EDT Telemedicine [facility] [address] [place] [address] Sung Rand, PharmD [address] [place] [address] 03/16/2025 11:00 AM EST Office Visit [facility] [address] [place] [address] Indiana Colbert, OD [address] [place] [address] Health Maintenance Due Date Last Done Comments [...] Additional history exists COVID-19 Vaccine (3 - season) 2024 01/04/2021, 12/14/2020 Influenza Vaccine [...] 9:37 AM EDT 11/05/2024 10:32 AM EDT Tere[facility] - 11/07/2024 10:35 AM EDT ----- ------- Name: Delilah Sevilla Age/Sex: 69/F : 1955 Unit#: [id number] Attend Dr: Leo Sevilla MD Re11/05/24 Status: DEP REF Location: .MAMMO Disch: ----- ------- SPEC : [id number] RECD: 11/05/24 STATUS: PANKAJ [place] NUM: [id number] [place]: 11/05/[address]: Elda Graham DO ENTERED: 09/03/25-1034 SP TYPE: Surgical OTHR DR: Cristy Monet MD,Leo JEAN-BAPTISTE ORDERED: HE Stain/2, Gross Micro L4, ER, MD, IHC/6, E-cadherin, Sophia-3, Ki-67, [id number] COMMENTS: As per the specimen requisition slip the specimen is collected at 0937 and placed in formalin at 0941. Diagnosis Breast, left, 2:00, core biopsy: -Invasive lobular carcinoma, MSBR grade 2. Synoptic report Procedure: Core biopsy Specimen laterality: Left Histologic type: Invasive lobular carcinoma. Histologic grade (Boomer/MSBR histologic score): 2 - Glandular/tubular differentiation: Score: [...] 20, 15%) -Controls (external and internal): Appropriate [email or web address] HER2 FISH analysis pending; addendum to follow. [...] Delilah Sevilla Age/Sex: 69/F : 1955 Unit#: [id number] Attend Dr: Leo Sevilla MD Re11/05/24 Status: [facility] REF Location: JesseMAMMO Disch: ----- ------- SPEC : [id number] RECD: 11/05/24 STATUS: PANKAJ [place] NUM: [id number] [place]: 11/05/[address]: Elda Graham DO ENTERED: 11/05/24 SP TYPE: Surgical OTHR DR: Cristy Monet MD, Francis MD ORDERED: HE Stain/2, Gross Micro L4, ER, MD, IHC/6, E-cadherin, Sophia-3, Ki-67, [id number] COMMENTS: As per the specimen requisition slip [...] automated immunostain methods: Estrogen receptor: Clone SP1; Hospers CONFIRM [employer] [place] DAB Progesterone receptor: Clone 1E2; Hospers CONFIRM [employer] [place] DAB HER2: FDA-approved Hospers PATHWAY anti-HER-2/robert (4B5) Monoclonal; [employer] [place] DAB Controls are performed and evaluated for [...] Delilah Sevilla Age/Sex: 69/F : 1955 Unit#: [id number] Attend Dr: Leo Sevilla MD Re11/05/24 Status: DEP [facility]F [facility]: ----- ------- SPEC : [id number] RECD: 11/05/24 STATUS: PANKAJ [place] NUM: [id number] [place]: 11/05/[address]: Elda Graham DO ENTERED: 11/05/24 SP TYPE: Surgical OTHR DR: Cristy Monet MD, Francis MD ORDERED: HE Stain/2, Gross Micro L4, ER, MD, IHC/6, E-cadherin, Sophia-3, Ki-67, [id number] COMMENTS: As per the specimen requisition slip [...] and Progesterone Receptor Testing in Breast Cancer: [place] Society of Clinical Oncology/College of [place] Pathologists Guideline Update. Arch of Pathol Lab Med. 2020; 144(5): 545-563. Pee PRATT, Livier ALBRECHT, Katelin MAYERS, et al. Her2 testing in breast cancer: [place] Society of Clinical Oncology/College of [place] Pathologists clinical practice guideline focused update. Arch Pathol Lab Med. 2018; 142(11): 6836-3367. Arturo N, Akanksha P, et al. Adjuvant abemaciclib combined with endocrine therapy for high- risk early breast cancer: updated efficacy and Ki-67 analysis from the monarchE study. Sydnie Oncol. 2020;32(12):2631-1445. Livier MORTENSEN, [place] DF, et al. ASCO/CAP Guideline Recommendations for Immunohistochemical Testing of Estrogen and Progesterone Receptors in Breast Cancer. J Clin Oncol, 28 (16), 2010: 7439-5722. This case was reviewed intradepartmentally. Case discussed with Drew Graham and Roel by secure text by Dr. Diehl on 11/06/2024 at 12:07 pm. Special studies ordered and performed: Immunostains for ER, MD, HER2, Ki 67, E-cadherin, and GATA3 on A1. CONTINUED ON NEXT PAGE ----- ------- Name: Delilah Sevilla Age/Sex: 69/F : 1955 Unit#: [id number] Attend Dr: Leo Sevilla MD Re11/05/24 Status: DEP REF Location: HO.MAMMO Disch: ----- ------- SPEC : [id number] RECD: 11/05/24 STATUS: PANKAJ [place] NUM: [id number] [place]: 11/05/[address]: Elda Graham DO ENTERED: 11/05/24 SP TYPE: Surgical OTHR DR: Cristy Monet MD, Francis MD ORDERED: HE Stain/2, Gross Micro L4, ER, MD, IHC/6, E-cadherin, Sophia-3, Ki-67, [id number] COMMENTS: As per the specimen requisition slip the specimen is collected at 0937 and placed in formalin at 0941. IHC S/NG Disclaimer NOTE: Unless otherwise stated, all tissue is formalin-fixed and paraffin-embedded. Some or all of the immunohistochemical tests reported herein may have been developed and their performance characteristics determined by [facility]. They have not been cleared or approved by the U.S. Food and Drug Administration (FDA). However, the FDA has determined that such clearance or approval is not necessary. This laboratory is certified under the Clinical Laboratory Improvement Amendments of 1988 (CLIA) as qualified to perform high complexity clinical laboratory testing. Copies To: Cristy Monet MD [facility] [address] [place] [address] Leo Sevilla MD [facility] [place] [place] [facility] Surgeons [address] [place] [address] Elda Graham DO [address] [place] [address] ----- ------- Signed (signature on file) [place] 11/07/24 1035 ----- ------- END OF REPORT us Generic External Data Provider LAB BLOOD ORDERAB LES Final Result [facility] [address] [place] [address] [phone] * US BREAST NDL CORE BIOPSY LT (11/05/2024 9:15 AM EDT) Anatomical Region Laterality Modality Abdomen Ultrasound 11/05/2024 9:15 AM EDT Narrative 11/05/2024 11:58 AM EDT [facility] [address] [place] [address] Ultrasound Report Signed Patient: Delilah Sevilla MR#: [id number] 39 : 1955 Acct:[id number] Age/Sex: 69 / F ADM Date: 11/05/24 Loc: HO.MAMMO Attending Dr: Leo Sevilla MD Ordering Physician: Leo Sevilla MD Date of Service: 11/05/24 Procedure(s): US breast ndl core biopsy LT Accession Number(s): [id number] cc: Cristy Monet MD; Leo Sevilla MD [...] 11/05/24 1155 DD/ 0915 TD/TT: 11/05/24 1000 Community Services Coordinator: Procedure Note Donotuseinterpreter, Image - 11/05/2024 [facility] [place] [address] Ultrasound Report Signed Patient: Delilah Sevilla#: [id number] 39 : 8Acct:[id number] Age/Sex: 69 / FADM Date: 11/05/24 Loc: HO.MAMMO Attending Dr: Leo Sevilla MD Ordering Physician: Leo Sevilla MD Date of Service: 11/05/24 Procedure(s): US breast ndl core biopsy LT Accession Number(s): [id number] cc: Cristy Monet MD; Leo Sevilla MD [...] 11/05/24 1155 DD/ 0915 TD/TT: 11/05/24 1000 Community Services Coordinator: [facility] External Provider IMG US PROCEDURES Final Result * BI Mammogram Diagnostic Tomosynthesis Left (11/05/2024 8:47 AM EDT) Only the most recent of2 resultswithin the time period is included. Anatomical Region Laterality Modality Breast Left Mammography 11/05/2024 8:47 AM EDT Narrative 11/05/2024 11:58 AM EDT [facility] [address] [place] [address] Mammography Report Signed Patient: Delilah Sevilla MR#: [id number] 39 : 1955 Acct:[id number] Age/Sex: 69 / F ADM Date: 11/05/24 Loc: ANNALEEO Attending Dr: Leo Sevilla MD Ordering Physician: Leo Sevilla MD Results: 1Neg ative Date of Service: 11/05/24 Follow Up: 1 Year From Orig inal Mammogram Procedure(s): MM tomosynthesis diagnostic LT Accession Number(s): [id number] cc: Cristy Monet MD; Leo Sevilla MD [...] 11/05/24 1155 DD/ 0847 TD/TT: 11/05/24 1000 Community Services Coordinator: Procedure Note Donotnoter, Shashi - 11/05/2024 [facility] [address] [place] [address] Mammography Report Signed Patient: RoelAi#: [id number] 39 : 8Acct:[id number] Age/Sex: 69 / FADM Date: 11/05/24 Loc: HO.MAMMO Attending Dr: Leo Sevilla MD Ordering Physician: Leo Sevilla MDResults: 1Neg ative Date of Service: 11/05/24Follow Up: 1 Year From [facility] ina Mammogram Procedure(s): MM tomosynthesis diagnostic LT Accession Number(s): [id number] cc: Cristy Monet MD; Leo Sevilla MD [...] DO Signed By: <Electronically signed by Elda Graham, DO in OV> 11/05/24 1155 DD/ 0847 TD/TT: 11/05/24 1000 Community Services Coordinator: us [facility] External Provider IMG BI PROCEDURES Final Result * (ABNORMAL) Hemoglobin and Hematocrit (11/04/2024 10:10 AM EDT) Hemoglobin 12.2 12.0 - 16.0 g/dl [facility] Hematocrit 35.6(L) 37.0 - 47.0 % [facility] Blood Venous blood specimen / Unknown 11/04/2024 10:10 AM EDT 11/04/2024 11:03 AM EDT Cristy Monet MD LAB BLOOD ORDERABLES Fin al Result [facility] [address] [place] [phone] * Basic Metabolic Panel (11/04/2024 10:10 AM EDT) Only the most recent of3 resultswithin the time period is included. Sodium 135 135 - 145 mmol/L [facility] Potassium 4.3 3.3 - 5.1 mmol/L [facility] Chloride 102 96 - 108 mmol/L [facility] Carbon Dioxide 25 22 - 29 mmol/L [facility] Anion Gap 12 12 - 20 [facility] Urea Nitrogen (BUN) 13 9 - 16 mg/dL [facility] Creatinine, Serum 0.80 0.5 - 1.4 mg/dL [facility] Estimated Glomerular Filt Rate >60 [facility] Comment:Chronic Kidney Disea se: Estimated GFR < 60 mL/min/[id number] Kidney Disease: Estimated GFR < 15 mL/min/1.73m2 Glucose 94 60 - 115 mg/dL [facility] Calcium 9.1 8.4 - 10.2 mg/dL [facility] Blood Venous blood specimen / Unknown 11/04/2024 10:10 AM EDT 11/04/2024 11:01 AM EDT us Cristy Monet MD LAB BLOOD ORDERABLES Fin al Result [facility] [address] [place] [address] [phone] * BI US Breast Limited Left (10/15/2024 1:22 PM EDT) Anatomical Region Laterality Modality Breast Left Ultrasound 10/15/2024 1:22 PM EDT Narrative 10/15/2024 2:17 PM EDT [address] [place] [address] Ultrasound Report Signed Patient: Delilah Sevilla MR#: [id number] 39 : 1955 Acct:[id number] Age/Sex: 69 / F ADM Date: 10/15/24 Loc: HO.MAMMO Attending Dr: Cristy Monet MD Ordering Physician: Cristy Monet MD Date of Service: 10/15/24 Procedure(s): US breast LT limited mamm only Accession Number(s): [id number] cc: Cristy Monet MD EXAMINATION: MM DIAGNOSTIC [...] 10/15/24 1414 DD/ 1322 TD/TT: 10/15/24 1358 Community Services Coordinator: Procedure Note Donotuseinterpreter, Image - 10/16/2024 [facility] [address] [place] [address] Ultrasound Report Signed Patient: Delilah SevillaMR#: [id number] 39 : 8Acct:[id number] Age/Sex: 69 / FADM Date: 10/15/24 Loc: ANNALEEO Attending Dr: Cristy Monet MD Ordering Physician: Cristy Monet MD Date of Service: 10/15/24 Procedure(s): US breast LT limited mamm only Accession Number(s): [id number] cc: Cristy Monet MD EXAMINATION: MM DIAGNOSTIC [...] 10/15/24 1414 DD/ 1322 TD/TT: 10/15/24 1358 Community Services Coordinator: us Cristy Monet MD IMG US PROCEDURES Final Result * US RENAL DOPPLER (10/01/2024 1:12 PM EDT) Anatomical Region Laterality Modality Abdomen Ultrasound 10/01/2024 1:12 PM EDT Narrative 10/01/2024 1:13 PM EDT [address] [address] Ultrasound Report Signed Patient: Delilah Sevilla MR#: [id number] 39 : 1955 Acct:[id number] Age/Sex: 68 / F ADM Date: 10/01/24 Loc: HO.US Attending Dr: Cristy Monet MD Ordering Physician: Cristy Monet MD Date of Service: 10/01/24 Procedure(s): US renal doppler Accession Number(s): [id number] cc: Cristy Monet MD CLINICAL HISTORY: resistent [...] 10/01/24 1313 DD/ 1312 TD/TT: 10/01/24 1312 Community Services Coordinator: Procedure Note Donotuseinterpreter, Image - 10/01/[address] [address] Ultrasound Report Signed Patient: Delilah SevillaMR#: [id number] 39 : 1955cct:[id number] Age/Sex: 68 / FADM Date: 10/01/24 Loc: HO.US Attending Dr: Cristy Monet MD Ordering Physician: Cristy Monet MD Date of Service: 10/01/24 Procedure(s): US renal doppler Accession Number(s): [id number] cc: Cristy Monet MD CLINICAL HISTORY: resistent [...] 10/01/24 1313 DD/ 1312 TD/TT: 10/01/24 1312 Community Services Coordinator: us Cristy Monet MD IMG US PROCEDURES Final Result * (ABNORMAL) Urinalysis, Complete, with Reflex to Culture (08/15/2024 12:20 PM EDT) Color Urine Yellow [facility] Appearance Urine Clear [facility] PH 5.5 5.0 - 9.0 [facility] Glucose Urine UA Negative Negative mg/dL [facility] Urine Blood Small (1+)(A) Negative [facility] Specific [place] - Urine 1.015 1.005 - 1.025 [facility] Urine Protein 30 (1+)(A) Neg-Trace mg/dL [facility] Urine Ketones Trace Negative mg/dL [facility] Nitrite Urine Negative Negative [facility] Leukocyte Esterase Urine Negative Negative [facility] RBC Urine 0-2 0 - 2 /HPF [facility] Urine WBC 0-5 0 - 5 /HPF [facility] Urine Squamous Epithelial Cell 3-5 0 - 2 /HPF [facility] Urine Bacteria None Seen None Seen [facility] Hyaline Casts, Urine 3-5 0 - 2 /LPF [facility] 08/15/2024 12:2 0 PM EDT 08/15/2024 12:22 PM EDT Narrative [facility] - 08/15/2024 12:44 PM EDT Urine, Clean Catch us Generic External Data Provider LAB URINE ORDERAB LES Final Result Performing Organization Address City/State/[facility] Co de Phone Number [facility] [address] [place] [phone] * CT Abdomen Pelvis w/o Contrast (08/15/2024 10:22 AM EDT) Anatomical Region Laterality Modality Body, Pelvis, Abdomen Computed T omography 08/15/2024 10:2 2 AM EDT Narrative 08/15/2024 12:00 PM EDT [place] [address] CT Scan Report Signed Patient: Delilah Sevilla MR#: [id number] 39 : 1955 Acct:[id number] Age/Sex: 68 / F ADM Date: 08/15/24 Loc: HO.ED Attending Dr: Ordering Physician: Araceli Morris Date of Service: 08/15/24 Procedure(s): CT abdomen pelvis wo IV con Accession Number(s): [id number] cc: Cristy Monet MD; Araceli Morris Report Number: [id number]: Total DLP = 318.00 mGy-cm EXAMINATION: CT [...] 08/15/24 1158 DD/ 1022 TD/TT: 08/15/24 1135 Community Services Coordinator: Procedure Note Freddyotnoter, Image - 08/15/[address] [place] [address] [address] Scan Report Signed Patient: Ai Sevilla#: [id number] 39 : 8Acct:[id number] Age/Sex: 68 / FADM Date: 08/15/24 Loc: HO.ED Attending Dr: Ordering Physician: Araceli Morris Date of Service: 08/15/24 Procedure(s): CT abdomen pelvis wo IV con Accession Number(s): [id number] cc: Cristy Monet MD; Araceli Morris Report Number: [id number]: Total DLP = 318.00 mGy-cm EXAMINATION: CT [...] 08/15/24 1158 DD/ 1022 TD/TT: 08/15/24 1135 Community Services Coordinator: [facility] External Provider IMG CT PROCEDURES Final Result * High Sensitivity Troponin I (08/15/2024 9:42 AM EDT) TROPONIN I HIGH SENSITIVITY 13.7 <3.5 - 17.0 ng/L [facility] Comment:The Cade high sens itivity Troponin-I results should beused in conjunction with other diagnostic information suchas ECG, clinical observations and information, and patientsymptoms to aid in the diagnosis of NH. 08/15/2024 9:42 AM EDT 08/15/2024 9:45 AM EDT us Generic External Data Provider LAB BLOOD ORDERAB LES Final Result [facility] [address] [place] [address] [phone] * (ABNORMAL) CBC auto differential (08/15/2024 9:42 AM EDT) White Blood Count 14.0(H) 4.8 - 10.8 X10*3/uL [facility] Red Blood Count 4.71 4.20 - 5.50 X10*6/uL [facility] Hemoglobin 14.9 12.0 - 16.0 g/dl [facility] Hematocrit 42.1 37.0 - 47.0 % [facility] Mean Corpuscular Volume 89.4 80.0 - 98.0 fL [facility] Mean Corpuscular Hemoglobin 31.6 27.0 - 33.0 pg [facility] Mean Corpuscular HGB Conc 35.4(H) 31.0 - 35.0 g/dl [facility] Red Cell Distribution Width 12.1 11.0 - 16.0 % [facility] Platelet Count 346 160 - 400 X10*3/uL [facility] Mean Platelet Volume 8.6(L) 9.4 - 12.3 fL [facility] Neutrophils Percent Auto 75.0(H) 45 - 73 % [facility] Imm Gran Pct Auto 0.3 0.0 - 0.4 % [facility] Lymphocytes Percent Auto 15.6(L) 20 - 40 % [facility] Monocytes Percent Auto 8.7 2 - 11 % [facility] Eosinophils Percent Auto 0.0 0 - 4 % [facility] Basophils Percent Auto 0.4 0 - 2 % [facility] NRBC Pct Auto 0.0 0.0 - 0.2 /100WBC [facility] Neutrophils Absolute Auto 10.5(H) 2.0 - 8.3 x10*3/uL [facility] Imm Gran Abs Auto 0.04(H) 0.00 - 0.03 X10*3/uL [facility] Lymphocytes Absolute Auto 2.2 1.2 - 4.9 X10*3/uL [facility] Monocytes Absolute Auto 1.2 0.1 - 1.2 X10*3/uL [facility] Eosinophils Absolute Auto 0.0 0.0 - 0.4 X10*3/uL [facility] Basophils Absolute Auto 0.1 0.0 - 0.2 X10*3/uL [facility] NRBC Abs Auto 0.000 0.0 - 0.012 X10*3/uL [facility] 08/15/2024 9:42 AM EDT 08/15/2024 9:45 AM EDT Generic External Data Provider LAB BLOOD ORDERAB LES Final Result Performing Organization Address [facility] de Phone Number [facility] [address] [place] [phone] * Lipase (08/15/2024 9:42 AM EDT) [facility] Lipase 76 8 - 78 U/L [facility] 08/15/2024 9:42 AM EDT 08/15/2024 9:45 AM EDT Generic External Data Provider LAB BLOOD ORDERAB LES Final Result Performing Organization Address [facility] de Phone Number [facility] [address] [place] [phone] * (ABNORMAL) Hepatic Function Panel (08/15/2024 9:42 AM EDT) Bilirubin, Total 0.9 0.0 - 1.0 mg/dL [facility] Bilirubin, Direct 0.3 0.0 - 0.5 mg/dL [facility] Aspartate Amino Transferase 40(H) 5 - 31 U/L [facility] Alanine Aminotransferase 29 0 - 31 U/L [facility] Total Protein 8.5(H) 6.5 - 8.0 g/dL [facility] Albumin Level 5.1(H) 3.5 - 5.0 g/dL [facility] Alkaline Phosphatase 114 39 - 117 U/L [facility] 08/15/2024 9:42 AM EDT 08/15/2024 9:45 AM EDT us Generic External Data Provider LAB BLOOD ORDERAB LES Final Result Performing Organization Address [facility] de Phone Number [facility] [address] [place] [phone] * (ABNORMAL) Hm Colonoscopy (12/25/2023) Colonoscopy Abnormal( A) Normal [facility] Comment:TA + hyperplastic po lyps us Crsity Monet MD HEALTH MAINTENANCE Final Result Performing Organization Address [facility] Co de Phone Number [facility] [address] [place] [address] [phone] * (ABNORMAL) Lipid Panel, Standard (12/19/2023 9:22 AM EDT) Triglycerides 79 <150 mg/dL [facility] Comment:Desirable Triglyceri de: less than 150 mg/dLBorderline High Triglyceride 150-199 mg/dLHigh Triglyceride: 200-499 mg/dLVery High Triglyceride: greater than or equal to 5OO mg/dL Cholesterol 224(H) <200 mg/dL [facility] Comment:Desirable Cholestero l: less than 200 mg/dLBorderline High Cholesterol: 200-239 mg/dLHigh Cholesterol: greater than 239 mg/dL LDL Cholesterol Calculated 117(H) <100 mg/dL [facility] Comment:Desirable LDL: less than 100 mg/dLNear Optimal/Above Optimal LDL: 110- 129 mg/dLBorderline High LDL: 130-159 mg/dLHigh LDL: 160-189 mg/dLVery High LDL: greater than or equal to 190 mg/dL HDL Cholesterol 92 >40 mg/dL [facility] Comment:Desirable HDL: great er than 40 mg/dL Note: This HDL assay may give artificially low results in patients with liver disease. 12/19/2023 9:22 AM EDT 12/19/2023 11:43 AM EDT Cristy Monet MD LAB BLOOD ORDERABLES Fin al Result Performing Organization Address [facility] Co de Phone Number [facility] [address] [place] [phone] Hepatitis Panel, General (12/04/2023 9:36 AM EDT) Hepatitis A IgM Nonreactive Nonreactive [facility] Comment:IgM antibodies to MARTINES V not detected; does not exclude earlyacute or recovered HAV infection. ~Hepatitis B Surface Antibody REACTIVE Nonreactive [facility] Comment:REACTIVE: > 11.99 mI U/mL Hepatitis B Core Antibody Nonreactive Nonreactive [facility] Hepatitis C Antibody Nonreactive Nonreactive [facility] Comment:Antibodies to HCV no t detected; does not exclude early acuteHCV infection. Hepatitis B Surface Ag Negative Negative [facility] Blood 12/04/2023 9:36 AM EDT 12/04/2023 11:01 AM EDT Cristy Monet MD LAB BLOOD ORDERABLES Fin al Result Performing Organization Address [facility] Co de Phone Number [facility] [address] [place] [phone] * (ABNORMAL) ThinPrep?? Imaging Pap Refl HPV mRNA(if ASCUS,ASC- H,LSIL,HSIL,TWILA)Refl Genotype (10/18/2023 10:43 AM EDT) HPV nRNA E6/E7 Detected(A ) Not Detected [facility] Comment:Methodology: Transcr iption-Mediated AmplificationThis assay detects E6/E7 viral messenger RNA (mRNA) from 14high-risk HPV types (16,18,31,33,35,39,45,51,52,56,58,59,66,68).Cervical sources are required for HPV testing.If a vaginal source from a patient who has had atotal hysterectomy with removal of cervix wassubmitted, please contact the testing laboratoryfor alternative testing options.For additional information, please refer tohttp://education.Adstrix/faq/[email or web address](This link if provided for information/educational purposes only.)THIS TEST WAS PERFORMED AT:[facility] [address] [phone] MEDINA MD HPV 16,18/45 NOT DETECTED NOT DETECTED [facility] Comment:Methodology: Transcr iption Mediated AmplificationCervical sources are required for HPV testing.If a vaginal source from a patient who has had atotal hysterectomy with removal of cervix wassubmitted, please contact the testing laboratoryfor alternative testing options.THIS TEST WAS PERFORMED AT:[facility] [address] [phone] MEDINA MD SOURCE: SEE NOTE [facility] Comment:None given Report Status: [facility] Clinical Information: SEE NOTE [facility] Comment:None given LMP: SEE NOTE [facility] Comment:NONE GIVEN Prev. PAP: SEE NOTE [facility] Comment:NONE GIVEN Prev. BX: SEE NOTE [facility] Comment:NONE GIVEN Statement Of Adequacy: SEE NOTE [facility] Comment:Satisfactory for naheed luation.Endocervical/transformation zone componentpresent. General Categorization: SEE NOTE(A) [facility] Comment:Cytology Results: Ep ithelial Cell Abnormality Interpretation/Result: SEE NOTE(A) [facility] Comment:Atypical Squamous Ce lls of UndeterminedSignificance (ASC-US) Cytology Comment SEE NOTE [facility] Comment:This Pap test has be en evaluated with computerassisted technology. Nut Tapper: SEE NOTE [facility] Comment:DCR, CT(ASCP)CT scre ening location: [place] [address] Review Nut Tapper: [facility] Pathologist SEE NOTE [facility] Comment:Valerio Romero M.D./Jose Molina,Board Certified in Anatomic Pathology andBoard Eligible Cytopathology(electronic signature)Consulting PathologistGuardian Hospital Pathology[address] [place] [address] [phone] PAP Infection TNP [facility] See Note SEE NOTE [facility] Comment:EXPLANATORY NOTE:The Pap is a screening test for cervical cancer. It isnot a diagnostic test and is subject to false negativeand false positive results. It is most reliable when asatisfactory sample, regularly obtained, is submittedwith relevant clinical findings and history, and whenthe Pap result is evaluated along with historic andcurrent clinical information.THIS TEST WAS PERFORMED AT:[facility] AN[address] PATH[address] [place] [phone] REYEZ MD 10/18/2023 10:4 3 AM EDT 10/18/2023 4:30 PM EDT Narrative [facility] - 10/31/2023 11:52 AM EDT SEE SCANNED RESULTS IN EMR us Cristy Moent MD LAB CYTOLOGY ORDERABLES Final Result [facility] [address] [place] [phone] [phone] from Last 3 Months or Most Recently Relevant to Health Maintenance Insurance [facility] [employer] (HMO D-SNP) SANDRA RUIZ [id number] [facility] STANDARD Care Teams Art Supervisor Relationship Specialty Start Date End Date Cristy Monet MD [address] [place] [address] PCP - General Family Medicine 12/12/19 Sung Rand, DaeD [address] [place] [address] Pharmacist Internal Medicine 05/27/24
--- OUTSIDE RECORDS SUMMARY | 2024-11-12 12:23 | XMS_ITS | Encounter Summary ---
Author Organization [employer] Address [address] [place] [address] [address] [place] [address] Care Team Providers Care Revenue Agent Name Role Phone Cristy Monet MD Primary Care Provider + Sung Rand PharmD Unavailable [phone] Encounter Details Date Type Department Care Team (Late Contact Info) Description 07/07/2022 Orders Only [facility] MEDICINE [address] [place] [address] Odilia Smiley LPN Social History Tobacco Use [...] Upcoming Encounters Date Type Department Care Team ([facility] Contact Info) Description 12/11/2024 11:00 AM EDT Telemedicine [facility] MEDICINE [address] [place] [address] Sung Rand, PharmD [address] [place] [address] 03/16/2025 11:00 AM EST Office Visit [facility] OPTOMETRY [address] [place] [address] Filemon, [place], OD [address] [place] [address] documented as of this encounter Procedures Procedure Name Priority Date/Time Associated Diagnosis Comments BI MAMMOGRAM SCREENING TOMOSYNTHESIS BILATERAL Routine 07/07/2022 1:05 PM EDT documented in this encounter Results * BI Mammogram Screening Tomosynthesis Bilateral (07/07/2022 1:05 PM EDT) Anatomical Region Laterality Modality Breast Bilateral Mammography 07/07/2022 1:05 PM EDT Narrative 07/10/2022 1:12 PM EDT [facility] [address] [place] [address] Mammography Report Signed Patient: Delilah Sevilla MR#: [id number] : 1955 Acct:[id number] Age/Sex: 66 / F ADM Date: 07/07/22 Loc: HO.MAMMO Attending Dr: Cristy Monet MD Ordering Physician: Cristy Monet MD Results: 2Be nign Findings Date of Service: 07/07/22 Follow Up: 1 Year From Orig ina Mammogram Procedure(s): MM tomosynthesis screening BI Accession Number(s): [id number] cc: Cristy Monet MD EXAMINATION: MM SCREENING [...] in OV> 07/10/22 1309 DD/ 1305 TD/TT: Newspaper Deliverer: ACOSTA Procedure Note Donotuseinterpreter, Image - 08/31/2022 [facility] [address] [place], [place] [address] Mammography Report Signed Patient: Delilah SevillaMR#: [id number] : 8Acct:[id number] Age/Sex: 66 / FADM Date: 07/07/22 Loc: HO.MAMMO Attending Dr: Cristy Monet MD Ordering Physician: Cristy Monet MDResults: 2Be nign Findings Date of Service: 07/07/22Follow Up: 1 Year From Orig ina Mammogram Procedure(s): MM tomosynthesis screening BI Accession Number(s): [id number] cc: Cristy Monet MD EXAMINATION: MM SCREENING [...] in OV> 07/10/22 1309 DD/ 1305 TD/TT: Newspaper Deliverer: ACOSTA [facility] External Provider IMG BI PROCEDURES Final Result documented in this encounter Visit Diagnoses Not on filedocumented in this encounter Care Teams Revenue Agent Relationship Specialty Start Date End Date Cristy Monet MD [address] [place] [address] PCP - General Family Medicine 12/12/19 Sung Rand PharmD [address] [place] [address] Pharmacist Internal Medicine 05/27/24 documented as of this encounter
--- OUTSIDE RECORDS SUMMARY | 2024-11-12 12:23 | XMS_ITS | Encounter Summary ---
Author Organization [employer] Address [address] [place] [address] Care Team Providers Care Watch Supervisor Name Role Phone Cristy Monet MD Primary Care Provider + Sung Rand PharmD Unavailable Reason for Visit * Reason Comments Med Refill Encounter Details Date Type Department Care Team ([facility] st Contact Info) Description 02/03/2024 Refill [facility] [address] [place], [place] [phone] Niru Oakes MD [address] [place] [address] Resistant hypertension Social History Tobacco Use Types [...] Info) Description 12/11/2024 11:00 AM EDT Telemedicine [facility] [address] [place] [address] Sung Rand, Bill [address] [place] [address] 03/16/2025 11:00 AM EST Office Visit [facility] OPTOMETRY [address] [place] [address] [place] Colbert, OD [address] [place] [address] documented as of this encounter Visit Diagnoses Diagnosis Resistant hypertension documented in this encounter Care Teams Watch Supervisor Relationship Specialty Start Date End Date Cirsty Monet MD [address] [place] [address] PCP - General Family Medicine 12/12/19 Sung Rand, PharmD [address] [place] [address] Pharmacist Internal Medicine 05/27/24 documented as of this encounter
--- OUTSIDE RECORDS SUMMARY | 2024-11-12 12:23 | XMS_ITS | Encounter Summary ---
Author Organization [employer] Address [address] [facility] [address] [place] [address] Care Team Providers Care Security Officer Name Role Phone Cristy Monet MD Primary Care Provider + Sung Rand PharmD Unavailable [phone] Encounter Details Date Type Department Care Team (Late st Contact Info) Description 03/28/2022 Orders Only [facility] MEDICINE [address] [place] [address] Odilia Smiley LPN Social History Tobacco Use [...] Department Care Team (Late Contact Info) Description 12/11/2024 11:00 AM EDT Telemedicine [facility] MEDICINE [address] [place] [address] Sung Rand, PharmD [address] [place] [address] 03/16/2025 11:00 AM EST Office Visit [facility] OPTOMETRY [address] [place] [address] Filemon, [place], OD [address] [place] [address] documented as of this encounter Visit Diagnoses Not on filedocumented in this encounter Care Teams Security Officer Relationship Specialty Start Date End Date Cristy Monet MD [address] [place] [address] PCP - General Family Medicine 12/12/19 Sung Rand PharmD [address] [place] [address] Pharmacist Internal Medicine 05/27/24 documented as of this encounter
--- OUTSIDE RECORDS SUMMARY | 2024-11-12 12:23 | XMS_ITS | Encounter Summary ---
Author Organization [employer] Address [address] [facility] 7t [place] [address] Care Team Providers Care Tool Crib Supervisor Name Role Phone Cristy Monet MD Primary Care Provider + Sung Rand PharmD Unavailable [phone] Encounter Details Date Type Department Care Team (Late st Contact Info) Description 06/09/2024 Orders Only [facility] [address] [place], [place] [phone] ProviderIda MD Social History Tobacco Use Types [...] Info) Description 12/11/2024 11:00 AM EDT Telemedicine [facility] MEDICINE [address] [place] [address] Sung Rand, DaeD [address] [place] [address] 03/16/2025 11:00 AM EST Office Visit [facility] OPTOMETRY [address] [place] [address] Filemon, [place], OD [address] [place] [address] documented as of this encounter Procedures Procedure Name Priority Date/Time Associated Diagnosis Comments BIOPSY CERVIX Routine 05/02/2024 11:47 AM EST documented in this encounter Results * Biopsy cervix (05/02/2024 11:47 AM EST) Historical Provider IN CLINIC/BEDSIDE ORDERAB LES Final Result documented in this encounter Visit Diagnoses Not on filedocumented in this encounter Care Teams Tool Crib Supervisor Relationship Specialty Start Date End Date Cristy Monet MD [address] [place] [address] PCP - General Family Medicine 12/12/19 Sung Rand, PharmD [address] [place] [address] Pharmacist Internal Medicine 05/27/24 documented as of this encounter
--- OUTSIDE RECORDS SUMMARY | 2024-11-12 12:23 | XMS_ITS | Encounter Summary ---
Author Organization [employer] Address [address] [facility] 7t [place] [address] Care Team Providers Care Experimental Rocket Sled Mechanic Name Role Phone Cristy Monet MD Primary Care Provider + Sung Rand PharmD Unavailable [phone] Encounter Details Date Type Department Care Team ([facility] st Contact Info) Description 11/08/2024 Results Follow-Up [facility] MEDICINE [address] [place] [address] Cristy Monet MD [address] [place], [place] [phone] Hematoxylin and Eosin Stain Social History Tobacco [...] [facility] MEDICINE [address] [place] [address] Sung Rand, PharmD [address] [place] [address] 03/16/2025 11:00 AM EST Office Visit [facility] OPTOMETRY [address] [place] [address] [place] Col[place], OD [address] [place] [address] documented as of this encounter Visit Diagnoses Not on filedocumented in this encounter Care Teams Experimental Rocket Sled Mechanic Relationship Specialty Start Date End Date Cristy Monet MD [address] [place] [address] PCP - General Family Medicine 12/12/19 Sung Rand, DaeD [address] [place] [address] Pharmacist Internal Medicine 05/27/24 documented as of this encounter
--- OUTSIDE RECORDS SUMMARY | 2024-11-12 12:23 | XMS_ITS | Encounter Summary ---
Author Organization [employer] Address [address] [facility] [address]t [place] [address] Care Team Providers Care Training Program Developer Name Role Phone Cristy Monet MD Primary Care Provider + Sung Rand PharmD Unavailable [phone] Reason for Visit * Reason Comments Med Refill Encounter Details Date Type Department Care Team ([facility] st Contact Info) Description 11/11/2024 Refill [facility] MEDICINE [address] [place], [place] [phone] Cristy Monet MD [address] [place], [place] [phone] Social History Tobacco Use Types Packs/Day Years [...] Info) Description 12/11/2024 11:00 AM EDT Telemedicine [facility] MEDICINE [address] [place] [address] Sung Rand, PharmD [address] [place] [address] 03/16/2025 11:00 AM EST Office Visit [facility] OPTOMETRY [address] [place] [address] Filemon, [place], OD [address] [place] [address] documented as of this encounter Visit Diagnoses Not on filedocumented in this encounter Care Teams Training Program Developer Relationship Specialty Start Date End Date Cristy Monet MD [address] [place] [address] PCP - General Family Medicine 12/12/19 Sung Rand, PharmD [address] [place] [address] Pharmacist Internal Medicine 05/27/24 documented as of this encounter
--- OUTSIDE RECORDS SUMMARY | 2024-11-12 12:23 | XMS_ITS | Encounter Summary ---
Author Organization [employer] Address [address] [place] [address] Care Team Providers Care Skip Hoist Operator Name Role Phone Cristy Monet MD Primary Care Provider + Sung Rand PharmD Unavailable [phone] Encounter Details Date Type Department Care Team (Late st Contact Info) Description 04/17/2024 Orders Only [facility] MEDICINE [address] [place], [place] [phone] ProviderIda MD Social History Tobacco Use Types [...] Info) Description 12/11/2024 11:00 AM EDT Telemedicine [facility] MEDICINE [address] [place] [address] Sung Rand, PharmD [address] [place] [address] 03/16/2025 11:00 AM EST Office Visit [facility] OPTOMETRY [address] [place] [address] Filemon, [place], OD [address] [place] [address] documented as of this encounter Procedures Procedure Name Priority Date/Time Associated Diagnosis Comments COLPOSCOPY Routine 04/14/2024 3:06 PM EST documented in this encounter Results * Colposcopy (04/14/2024 3:06 PM EST) Historical Provider IN CLINIC/BEDSIDE ORDERAB LES Final Result documented in this encounter Visit Diagnoses Not on filedocumented in this encounter Care Teams Skip Hoist Operator Relationship Specialty Start Date End Date Cristy Monet MD [address] [place] [address] PCP - General Family Medicine 12/12/19 Sung Rand, PharmD [address] [place] [address] Pharmacist Internal Medicine 05/27/24 documented as of this encounter
--- OUTSIDE RECORDS SUMMARY | 2024-11-12 12:23 | XMS_ITS | Encounter Summary ---
Author Organization [employer] Address [address] [facility] [address] [place] [address] Care Team Providers Care Charter Coordinator Name Role Phone Cristy Monet MD Primary Care Provider + Sung Rand PharmD Unavailable [phone] Encounter Details Date Type Department Care Team ([facility] st Contact Info) Description 09/10/2023 Telephone [facility] MEDICINE [address] [place], [place] [phone] Cristy Monet MD [address] [place], [place] [phone] Social History Tobacco Use Types Packs/Day Years [...] Info) Description 12/11/2024 11:00 AM EDT Telemedicine [facility] MEDICINE [address] [place] [address] Sung Rand, Bill [address] [place] [address] 03/16/2025 11:00 AM EST Office Visit [facility] OPTOMETRY [address] [place] [address] Filemon, [place], OD [address] [place] [address] documented as of this encounter Visit Diagnoses Not on filedocumented in this encounter Care Teams Charter Coordinator Relationship Specialty Start Date End Date Cristy Monet MD [address] [place] [address] PCP - General Family Medicine 12/12/19 Sung Rand, DaeD [address] [place] [address] Pharmacist Internal Medicine 05/27/24 documented as of this encounter
--- OUTSIDE RECORDS SUMMARY | 2024-11-12 12:23 | XMS_ITS | Encounter Summary ---
Author Organization [employer] Address [address] [facility] [address] [place] [address] Care Team Providers Care Drawing Tracer Name Role Phone Cristy Monet MD Primary Care Provider + Sung Rand PharmD Unavailable [phone] Encounter Details Date Type Department Care Team [...] Info) Description 12/11/2024 11:00 AM EDT Telemedicine [facility] MEDICINE [address] [place] [address] Sung Rand, PharmD [address] [place] [address] 03/16/2025 11:00 AM EST Office Visit [facility] OPTOMETRY [address] [place] [address] [place], [place], OD [address] [place] [address] documented as of this encounter Procedures Procedure Name Priority Date/Time Associated Diagnosis Comments HEMATOXYLIN AND EOSIN STAIN Routine 11/05/2024 9:37 AM EDT documented in this encounter Results * Hematoxylin and Eosin Stain (11/05/2024 9:37 AM EDT) 11/05/2024 9:37 AM EDT 11/05/2024 10:32 AM EDT [facility] - 11/07/2024 10:35 AM EDT ----- ------- Name: Delilah Sevilla Age/Sex: 69/F : 1955 Unit#: [id number] Attend Dr: Leo Sevilla MD Re11/05/24 Status: [facility] Disch: ----- ------- SPEC : [id number] RECD: 11/05/24 STATUS: PANKAJ [place] NUM: [id number] [place]: 11/05/[address] [facility] [address]: Elda Graham DO ENTERED: 11/05/24 SP TYPE: Surgical OTHR DR: Cristy Monet MD, Francis MD ORDERED: HE Stain/2, Gross Micro L4, ER, FL, IHC/6, E-cadherin, Sophia-3, Ki-67, [id number] COMMENTS: As per the specimen requisition slip the specimen is collected at 0937 and placed in formalin at 0941. Diagnosis Breast, left, 2:00, core biopsy: -Invasive lobular carcinoma, MSBR grade 2. Synoptic report Procedure: Core biopsy Specimen laterality: Left Histologic type: Invasive lobular carcinoma. Histologic grade ([place]/MSBR histologic score): 2 - Glandular/tubular differentiation: Score: [...] 20, 15%) -Controls (external and internal): Appropriate [employer] HER2 FISH analysis pending; addendum to follow. [...] Delilah Sevilla Age/Sex: 69/F : 1955 Unit#: [id number] Attend Dr: Leo Sevilla MD Re11/05/24 Status: DEP [facility] Disch: ----- ------- SPEC : [id number] RECD: 11/05/24 STATUS: PANKAJ RELes NUM: [id number] [place]: 11/05/[address]: Elda Graham DO ENTERED: 11/05/24 SP TYPE: Surgical OTHR DR: Cristy Monet MD, Francis MD ORDERED: HE Stain/2, Gross Micro L4, ER, FL, IHC/6, E-cadherin, Sophia-3, Ki-67, [id number] COMMENTS: As per the specimen requisition slip [...] automated immunostain methods: Estrogen receptor: Clone SP1; [place] CONFIRM ultraView Gay DAB Progesterone receptor: Clone 1E2; [place] CONFIRM ultraView Gay DAB HER2: FDA-approved [place] PATHWAY anti-HER-2/robert (4B5) Monoclonal; ultraView Gay DAB Controls are performed and evaluated for [...] Delilah Sevilla Age/Sex: 69/F : 1955 Unit#: [id number] Attend Dr: Leo Sevilla MD Re11/05/24 Status: DEP REF Location: [facility] Disch: ----- ------- SPEC : [id number] RECD: 11/05/24 STATUS: PANKAJ [place] NUM: [id number] [place]: 11/05/[address] [facility] [address]: Elda Graham DO ENTERED: 11/05/24 SP TYPE: Surgical OTHR DR: Cristy Monet MD, Francis MD ORDERED: HE Stain/2, Gross Micro L4, ER, FL, IHC/6, E-cadherin, Sophia-3, Ki-67, [id number] COMMENTS: As per the specimen requisition slip [...] and Progesterone Receptor Testing in Breast Cancer: [place] Society of Clinical Oncology/College of [place] Pathologists Guideline Update. Arch of Pathol Lab Med. 2020; 144(5): 545-563. Pee PRATT, Livier ALBRECHT, Katelin MAYERS, et al. Her2 testing in breast cancer: [place] Society of Clinical Oncology/College of [place] Pathologists clinical practice guideline focused update. Arch Pathol Lab Med. 2018; 142(11): 9843-5181. Arturo N, Akanksha P, et al. Adjuvant abemaciclib combined with endocrine therapy for high- risk early breast cancer: updated efficacy and Ki-67 analysis from the [facility] study. Sydnie Oncol. 2020;32(12):0848-5183. Livier MORTENSEN, [place] AGUILERA, et al. ASCO/CAP Guideline Recommendations for Immunohistochemical Testing of Estrogen and Progesterone Receptors in Breast Cancer. J Clin Oncol, 28 (16), 2010: 8458-9430. This case was reviewed intradepartmentally. Case discussed with Drew Graham and Roel by secure text by Dr. Diehl on 11/06/2024 at 12:07 pm. Special studies ordered and performed: Immunostains for ER, FL, HER2, Ki 67, E-cadherin, and GATA3 on A1. CONTINUED ON NEXT PAGE ----- ------- Name: Delilah Sevilla Age/Sex: 69/F : 1955 Unit#: [id number] Attend Dr: Leo Sevilla MD Re11/05/24 Status: DEP REF Location: [facility] Disch: ----- ------- SPEC : [id number] RECD: 11/05/24 STATUS: PANKAJ [place] NUM: [id number] [place]: 11/05/[address]: Elda Graham DO ENTERED: 11/05/24 SP TYPE: Surgical OTHR DR: Cristy Monet MD, Francis MD ORDERED: HE Stain/2, Gross Micro L4, ER, FL, IHC/6, E-cadherin, Sophia-3, Ki-67, [id number] COMMENTS: As per the specimen requisition slip the specimen is collected at 0937 and placed in formalin at 0941. IHC S/NG Disclaimer NOTE: Unless otherwise stated, all tissue is formalin-fixed and paraffin-embedded. Some or all of the immunohistochemical tests reported herein may have been developed and their performance characteristics determined by [facility]. They have not been cleared or approved by the U.S. Food and Drug Administration (FDA). However, the FDA has determined that such clearance or approval is not necessary. This laboratory is certified under the Clinical Laboratory Improvement Amendments of 1988 (CLIA) as qualified to perform high complexity clinical laboratory testing. Copies To: Cristy Monet MD [facility] [address] [place] [address] Leo Sevilla MD [facility] [address] [place] [address] [place] [address] ----- ------- Signed (signature on file) Glo Fazal 11/07/24 1035 ----- ------- END OF REPORT us Generic External Data Provider LAB BLOOD ORDERAB LES Final Result [facility] [address] [place] [phone] documented in this encounter Visit Diagnoses Not on filedocumented in this encounter Care Teams Drawing Tracer Relationship Specialty Start Date End Date Cristy Monet MD [address] [place] [phone] PCP - General Family Medicine 12/12/19 Sung Rand, DaeD [address] [place] [phone] Pharmacist Internal Medicine 05/27/24 documented as of this encounter
--- OUTSIDE RECORDS SUMMARY | 2024-11-12 12:23 | XMS_ITS | Encounter Summary ---
Author Organization [employer] Address [address] [facility] [address] [place] [address] Care Team Providers Care Head Knitting Machine Fixer Name Role Phone Cristy Monet MD Primary Care Provider + Sung Rand PharmD Unavailable [phone] Reason for Visit * Reason Onset Date Comments Chart Prep 11/10/2024 Encounter Details Date Type Department Care Team (Late st Contact Info) Description 11/10/2024 Telephone [facility] MEDICINE [address] [place] [address] Cristy Monet MD [address] [place], [place] [phone] Chart Prep Social History Tobacco Use Types [...] Info) Description 12/11/2024 11:00 AM EDT Telemedicine [facility] MEDICINE [address] [place] [address] Sung Rand, PharmD [address] [place] [address] 03/16/2025 11:00 AM EST Office Visit [facility] OPTOMETRY [address] [place] [address] [place] Colbert, OD [address] [place] [address] documented as of this encounter Visit Diagnoses Not on filedocumented in this encounter Care Teams Head Knitting Machine Fixer Relationship Specialty Start Date End Date Cristy Monet MD [address] [place], [place] [phone] PCP - General Family Medicine 12/12/19 Sung Rand PharmD [address] [place] [address] Pharmacist Internal Medicine 05/27/24 documented as of this encounter
--- OUTSIDE RECORDS SUMMARY | 2024-11-12 12:24 | XMS_ITS | Encounter Summary ---
Author Organization [employer] Address [address] [facility] [address]t [place] [address] Care Team Providers Care Food Supervisor Name Role Phone Cristy Monet MD Primary Care Provider + Sung Rand PharmD Unavailable [phone] Encounter Details Date Type Department Care Team ([facility] Contact Info) Description 09/13/2022 Orders Only [facility] MEDICINE [address] [place] [address] [phone] Cristy Monet MD [address] [place], [place] [phone] Hyperkalemia (Primary Dx); Hypercalcemia Social History Tobacco [...] Upcoming Encounters Date Type Department Care Team ([facility] Contact Info) Description 12/11/2024 11:00 AM EDT Telemedicine [facility] MEDICINE [address] [place] [address] [phone] Sung Rand, PharmD [address] [place] [address] 03/16/2025 11:00 AM EST Office Visit [facility] OPTOMETRY [address] [place], [place] [phone] [place], OD [address] [place] [address] documented as of this encounter Procedures Procedure Name Priority Date/Time Associated Diagnosis Comments BASIC METABOLIC PANEL Routine 09/25/2022 8:41 AM EDT Hyperkalemia Hypercalcemia documented in this encounter Results * (ABNORMAL) Basic Metabolic Panel (09/25/2022 8:41 AM EDT) Sodium 138 135 - 145 mmol/L [facility] Potassium 5.0 3.3 - 5.1 mmol/L [facility] Chloride 102 96 - 108 mmol/L [facility] Carbon Dioxide 30(H) 22 - 29 mmol/L [facility] Anion Gap 11(L) 12 - 20 [facility] Urea Nitrogen (BUN) 15 9 - 16 mg/dL [facility] Creatinine, Serum 0.78 0.5 - 1.4 mg/dL [facility] Estimated Glomerular Filt Rate >60 [facility] Comment:NOTE: For -Am erican individuals, multiply the result by 1.210.Chronic Kidney Disease: Estimated GFR < 60 mL/min/[id number] Kidney Disease: Estimated GFR < 15 mL/min/1.73m2 Glucose 96 60 - 115 mg/dL [facility] Calcium 9.6 8.4 - 10.2 mg/dL [facility] Blood Venous blood specimen / Unknown 09/25/2022 8:41 AM EDT 09/25/2022 11:03 AM EDT us Cristy Monet MD LAB BLOOD ORDERABLES Fin al Result [facility] [address] [place] [phone] [phone] documented in this encounter Visit Diagnoses Diagnosis Hyperkalemia- Primary Hyperpotassemia Hypercalcemia documented in this encounter Care Teams Food Supervisor Relationship Specialty Start Date End Date Cristy Monet MD [address] [place] [phone] PCP - General Family Medicine 12/12/19 Sung Rand, DaeD [address] [place] [phone] Pharmacist Internal Medicine 05/27/24 documented as of this encounter
--- NOTE | 2024-11-13 14:49 | HO.ANESPROP2 ---
Documented by User: Caitlin Ortega NP 11/13/24 14:55 HPI - Anesthesia Eval Consult details Narrative: 69yo F for Left Mastectomy Simple, [place] Node Biopsy Smoker [facility] plaquinel for RA/inflammatory arthritis Latent TB s/p 6 months treatment complete 07/2024 with INH and B6 PMFSH Active Problems Active Problems: All Active Problems Invasive lobular carcinoma of breast in female (Acute) Family history of breast cancer (Acute) Left breast mass (Acute) AZALIA II (cervical intraepithelial neoplasia II) (Acute) ASCUS with positive high risk HPV cervical (Acute) Long-term use of Plaquenil (Acute) History of breast biopsy (Acute) Encounter for screening colonoscopy (Acute) COVID-19 (Acute) Seronegative rheumatoid arthritis (Acute) Positive TB test (Acute) Encounter before starting medication (Acute) Smoker unmotivated to quit (Acute) Inflammatory arthritis (Acute) Bilateral hand swelling (Acute) Joint pain in both hands (Acute) Past Medical History Medical History Invasive lobular carcinoma of breast in female Family history of breast cancer Left breast mass Long-term use of Plaquenil Seronegative rheumatoid arthritis Positive TB test Encounter before starting medication Smoker unmotivated to quit Inflammatory arthritis Bilateral hand swelling Joint pain in both hands High blood cholesterol HTN (hypertension) Family History Family History Sister Breast cancer Family history of problems with anesthesia: No Surgical History Surgical History Hx of esophagogastroduodenoscopy Hx of colonoscopy History of Problems with Anesthesia: No Social History Social History Household Members: Other Household Members Other:: lives alone Housing: Apartment Are you a primary home care coordinator to a significant other at home: No Do you presently have visiting nurse or other home services: No Alcohol intake: current Alcohol intake frequency: holidays/special occasions only Alcohol type: beer Patient Tobacco Use Status: Current everyday Tobacco user Tobacco use type: Cigarette Cigarette Packs Per Day: 5 Cigarettes Per Day: 100.0 Second Hand Smoke Exposure: No Use of substances other than those prescribed or required for medical reasons: Yes Substance Use Type: Marijuana Substance Use Frequency: Weekly Are you DNR?: No Advance Directives: No Advance Directives Information Provided: Yes Patient : No : No Poor oral hygiene: No service: No Current occupational status: disabled Current occupational exposures/hazards: No Meds Allergies Allergy/AdvReac Type Severity Reaction Status Date / Time No Known Allergies Allergy Mild Verified 11/17/24 08:37 Home Medications ?Medication ?Instructions ?Recorded ?Confirmed ?Last Taken ?Type aripiprazole 5 mg tablet (Abilify) 5 mg PO DAILY 05/09/23 11/17/24 Unknown History calcium 500 mg (as 1 tab PO BID 05/09/23 11/17/24 Unknown History carbonate)-vitamin D3 5 mcg (200 unit) tablet (Oyster [place] Calcium-Vitamin D3) hydrochlorothiazide 25 mg tablet 25 mg PO DAILY 05/09/23 11/17/24 Unknown History losartan 100 mg tablet (Cozaar) 100 mg PO DAILY 05/09/23 11/17/24 Unknown History metoprolol tartrate 25 mg tablet 25 mg PO BID 05/09/23 11/17/24 Unknown History pravastatin 40 mg tablet 40 mg PO DAILY 05/09/23 11/17/24 Unknown History zolpidem 5 mg tablet (Ambien) 5 mg PO BEDTIME PRN Insomnia 05/09/23 11/17/24 Unknown History citalopram 20 mg tablet (Celexa) 20 mg PO DAILY 06/13/23 11/17/24 Unknown History ipratropium 20 mcg-albuterol 100 1 puff inhalation DAILY PRN 06/13/23 11/17/24 Unknown History mcg/actuation mist for inhalation Wheezing (Combivent Respimat) clonidine HCl 0.1 mg tablet 0.1 mg PO BID 07/01/24 11/17/24 Unknown History amlodipine 5 mg tablet (Norvasc) 5 mg PO DAILY 08/15/24 11/17/24 Unknown History pyridoxine (vitamin B6) 50 mg 50 mg PO DAILY 11/13/24 11/17/24 Unknown History tablet (Vitamin B-6) Exam Pertinent Lab Results Pertinent Lab Results: Laboratory Tests 08/15/24 11/04/24 09:42 10:10 WBC 14.0 H Hgb 12.2 Hct 35.6 L Plt Count 346 Sodium 135 Potassium 4.3 D Chloride 102 Carbon Dioxide 25 BUN 13 Creatinine 0.80 Narrative Narrative: EKG 08/2024 Vent. Rate : 92 BPM Atrial Rate : 92 BPM P-R Int : 128 ms QRS Dur : 76 ms QT Int : 364 ms P-R-T Axes : 67 21 56 degrees QTcB Int : 450 ms Normal sinus rhythm Normal ECG When compared with ECG of 09-Jul-2024 12:43, Vent. rate has increased by 39 bpm Assessment and Plan Assessment Anesthesia Assessment: Chart Reviewed Final Anesthetic Review Family History of Problems with Anesthesia: No History of Problems with Anesthesia: No Documented by User: Cira Aguirre MD 11/17/24 09:06 [facility] Past Medical History Medical History Invasive lobular carcinoma of breast in female Family history of breast cancer Left breast mass Long-term use of Plaquenil Seronegative rheumatoid arthritis Positive TB test Encounter before starting medication Smoker unmotivated to quit Inflammatory arthritis Bilateral hand swelling Joint pain in both hands High blood cholesterol HTN (hypertension) Family History Family History Sister Breast cancer Surgical History Surgical History Hx of esophagogastroduodenoscopy Hx of colonoscopy Social History Social History Household Members: Other Household Members Other:: lives alone Housing: Apartment Are you a primary home care coordinator to a significant other at home: No Do you presently have visiting nurse or other home services: No Alcohol intake: current Alcohol intake frequency: holidays/special occasions only Alcohol type: beer Patient Tobacco Use Status: Current everyday Tobacco user Tobacco use type: Cigarette Cigarette Packs Per Day: 5 Cigarettes Per Day: 100.0 Second Hand Smoke Exposure: No Use of substances other than those prescribed or required for medical reasons: Yes Substance Use Type: Marijuana Substance Use Frequency: Weekly Are you DNR?: No Advance Directives: No Advance Directives Information Provided: Yes Patient : No : No Poor oral hygiene: No service: No Current occupational status: disabled Current occupational exposures/hazards: No Meds Allergies Allergy/AdvReac Type Severity Reaction Status Date / Time No Known Allergies Allergy Mild Verified 11/17/24 08:37 Home Medications ?Medication ?Instructions ?Recorded ?Confirmed ?Last Taken ?Type aripiprazole 5 mg tablet (Abilify) 5 mg PO DAILY 05/09/23 11/17/24 Unknown History calcium 500 mg (as 1 tab PO BID 05/09/23 11/17/24 Unknown History carbonate)-vitamin D3 5 mcg (200 unit) tablet (Oyster Shell Calcium-Vitamin D3) hydrochlorothiazide 25 mg tablet 25 mg PO DAILY 05/09/23 11/17/24 Unknown History losartan 100 mg tablet (Cozaar) 100 mg PO DAILY 05/09/23 11/17/24 Unknown History metoprolol tartrate 25 mg tablet 25 mg PO BID 05/09/23 11/17/24 Unknown History pravastatin 40 mg tablet 40 mg PO DAILY 05/09/23 11/17/24 Unknown History zolpidem 5 mg tablet (Ambien) 5 mg PO BEDTIME PRN Insomnia 05/09/23 11/17/24 Unknown History citalopram 20 mg tablet (Celexa) 20 mg PO DAILY 06/13/23 11/17/24 Unknown History ipratropium 20 mcg-albuterol 100 1 puff inhalation DAILY PRN 06/13/23 11/17/24 Unknown History mcg/actuation mist for inhalation Wheezing (Combivent Respimat) clonidine HCl 0.1 mg tablet 0.1 mg PO BID 07/01/24 11/17/24 Unknown History amlodipine 5 mg tablet (Norvasc) 5 mg PO DAILY 08/15/24 11/17/24 Unknown History pyridoxine (vitamin B6) 50 mg 50 mg PO DAILY 11/13/24 11/17/24 Unknown History tablet (Vitamin B-6) Exam Airway Mallampati Class: II TM Dist: >3cm Neck ROM: Limited Heart: rrr Lungs: cta Assessment and Plan Assessment Anesthesia Assessment: Anesthesia Plan Discussed Final Anesthetic Review NPO: Yes ASA Class: III Final Preanesthetic Review: No Changes in Pt Med Stat, Meds/Allgs Chart Reviewed, Consent Obtained/Reviewed and Anes Risks/Benef Reviewed Patient Risk: Intermediate Procedure Risk: Intermediate Anesthetic Plan Anesthetic Plan: GA, Regional Block and Agree w/ Assess. and Plan Disposition: Standard PACU
[2024-11-17] VITALS (10 sets, daily range): BP systolic 106–124; BP diastolic 59–74; PULSE 50–86; RESP 12–18; TEMP 36.1–36.6; O2SAT 96–98; BMI 20.7
--- NOTE | ~2024-11-17 | NM_ITS ---
EXAMINATION: Nuclear medicine sentinel node imaging. CLINICAL INDICATION: Malignant neoplasm left breast. COMPARISON: Mammogram 11/05/2024. TECHNIQUE: Left sentinel node procedure consent was obtained by the referring physician. 4% lidocaine cream was applied around the left breast areola 30 minutes prior to the exam. Patient arrived in nuclear medicine department and the area around the left breast at 11 is cleaned and aseptic sterile manner. 0.5 mCi of 90 9M technetium lymphoscintigraphy divided in 4 equal doses was subdermally injected in 4 quadrants around the left breast areola and imaging obtained at 30 minutes and 60 minutes. Patient tolerated procedure extremely well. FINDINGS/ NM/NM sentinel node w imaging IMPRESSION: There is focal activity seen in 4 quadrants around the left breast areola. At 60 minutes there is tracheal of isotope activity extending from the lateral breast to the anterior axilla with a solitary sentinel node visualized. Electronically signed by: Graeme Castillo MD 11/17/2024 10:28 AM EDT
[2024-11-17] MEDS: Lidocaine 4 % Cream KIT 1 APPL TOPICAL (07:30)
[2024-11-17] MEDS: Lactated Ringers 1,000 ML 100 ML IVCONT ×2 (07:58→16:09)
--- NOTE | 2024-11-17 08:12 | PHA.MEDREC ---
Pharmacy Consult ? Medication Reconciliation Pharmacy has completed the medication reconciliation. Pt was just here, seen by oncology on 11/13/24, used that updated med list and pharmacy claims to confirm.
--- NOTE | 2024-11-17 10:34 | MHC.SHP ---
Pre-Procedural Eval Section A - 24 Hr Update-Section A only Date of Service: 11/17/24 The patient is an INPATIENT: No Changes since office visit: No Cold of Flu in the past 2 weeks, No New Medical Problems, No Changes in Medication and No Patient answered all questions The patient has been examined within 24 hours of the surgical procedure. The History & Physical has been completed within 30 days and I have reviewed it.: Yes Section B - Complete if H&P > 30 days Chief Complaint: Malignant neoplasm of unspecified site of Allergies: Allergies Allergy/AdvReac Type Severity Reaction Status Date / Time No Known Allergies Allergy Mild Verified 11/17/24 08:37 Plan I have reviewed the history and physical and performed a pertinent physical examination on my patient. No changes have occurred unless specified. Time Spent With Patient Time: Total time managing care of this patient today ____ minutes.
--- NOTE | 2024-11-17 12:32 | W.PM.OPN ---
Operative Note Operative Note Date of Service: 11/17/24 Narrative: Preop diagnosis: Invasive lobular carcinoma of the left breast Postop diagnosis: The same Procedure: Total mastectomy left breast with sentinel biopsy Surgeon: Leo Sevilla MD land surveyor assistant: SANDRA Cardoso The patient is a 69 year old female recently diagnosed to have invasive lobular carcinoma of the left breast, here for total mastectomy and sentinel biopsy. She understood the technique of the planned procedure as was the risks, benefits, and alternatives. She had undergone scintigraphy earlier with nuclear medicine and I had reviewed her images. There were 1-2 faint lymph node identified in the axilla. The patient was brought to the operating room and placed supine under general anesthesia via laryngeal mask airway. A pectoralis block was done by the anesthesiologist in accordance with the ERAS protocol. The left chest and axilla were then prepped and draped in the usual sterile fashion. A surgical time-out was done. The patient received cefazolin 2 g IV preoperatively. I made a standard mastectomy incision on the skin surrounding the nipple-areolar complex with a blade 15. This carried down with electrocautery through the full-thickness of the skin and subcutaneous fat I then proceeded to develop my superior flap. I lifted the subdermal layer with Uyen clamps for traction and counter traction. I used the electrocautery to the superior flap with skin and subcutaneous tissue, with care being taken as to maintain business banking sales assistant thickness of the flap. We developed this flap all the way to the clavicular area which was our superior margin. I then exposed the fascia of the pectoralis on the superior area all the way from medial to lateral. After this was achieved, I proceeded to then develop the inferior flap. Again, the subdermal layer was lifted with Uyen clamps for traction counter traction. I used electrocautery to develop the inferior flap of skin and subcutaneous tissue, again with care being taken so as to maintain consistent thickness of the flap. This flap was developed all the way to the inframammary fold. I then proceeded to incise the pectoralis fascia to expose the plane between the fascia and the pectoralis muscle itself. I used electrocautery and blunt dissection to carefully lift up the pectoralis fascia from the muscle fibers from medial to lateral. Care was taken so as to not enter the plane of the muscle fibers itself. We proceeded to continued to separate the entire breast tissue along this well-defined plane of dissection between the pectoralis muscle and the fascia of the way laterally until we are able to expose the lateral edge of the pectoralis muscle. I the rest of the fascia from the pectoralis muscle. I completed transection of the breast tissue laterally. Oozing areas of the pectoralis were controlled with electrocautery. I marked the medial margin of the breast and this was sent for pathology We then proceeded to do the sentinel node biopsy. I incised the clavipectoral fascia to enter the axillary fat pad. I then proceeded to use the probe to periodically identify the sentinel nodes. We carefully dissected each sentinel node as well as an additional axillary node using Metzenbaum scissors. The pedicle was clamped with a right angle clamp and we excised each sentinel node in this fashion using Metzenbaum scissors. The pedicle was tied with a Polysorb 3-0. Streeter node #1 had a count of 280 Streeter node #2 had a count of 104 We then irrigated the axilla. We made sure that there was good hemostasis by cauterizing any oozing area. Once hemostasis was confirmed, we then proceeded to irrigate the pectoralis as well. We ensured hemostasis with electrocautery.. Once hemostasis was confirmed on the pectoralis, I proceeded to position a CORTNEY 10 drain along the inferior flap going medially and this was brought out through a small stab incision in the lateral edge of the inferior flap. This CORTNEY drain was secured to the skin with a nylon 3-0 anchoring stitch. We then reapposed the subdermal layer with multiple Polysorb 3-0 simple interrupted sutures. Skin closure was achieved with Polysorb 4-0 subcuticular running stitch . Thick dressings were applied. The procedure was completed. The patient tolerated procedure well. There were no immediate complications. Initial and final counts of sponges and instruments were correct. Estimated blood loss was about 75 cc Breast Streeter Node Biopsy Substrate(s) used for sentinel node biopsy in the non-neoadjuvant setting: Radiotracer All colored nodes or non-colored nodes present at the end of a dye filled lymphatic channel were removed, if dye was used as the substrate for localization: N/A All significantly radioactive nodes were removed, if radionuclide was used as the substrate for localization: Yes All palpably suspicious nodes were removed, if present: N/A If clips were placed in pathology-involved nodes, those nodes were identified and removed: N/A Procedure performed with curative intent?: Yes General Surg. - Synoptic Notes Breast Streeter Node Biopsy Substrate(s) used for sentinel node biopsy in the non-neoadjuvant setting: Radiotracer All colored nodes or non-colored nodes present at the end of a dye filled lymphatic channel were removed, if dye was used as the substrate for localization: N/A All significantly radioactive nodes were removed, if radionuclide was used as the substrate for localization: Yes All palpably suspicious nodes were removed, if present: N/A If clips were placed in pathology-involved nodes, those nodes were identified and removed: N/A Procedure performed with curative intent?: Yes
--- NOTE | 2024-11-17 13:23 | PHA.MEDREC ---
Pharmacy Consult ? Medication Reconciliation Pharmacy has reviewed the medication reconciliation done by nursing. Claims match med list.
--- NOTE | 2024-11-17 15:21 | P.CONHOSP_ITS ---
History of Present Illness Data of Consult Service Date: 11/17/24 Primary Care Provider: Cristy Monet MD HPI 69-year-old woman with a history of invasive lobular carcinoma of the left breast admitted by general surgery and is status post total mastectomy with sentinel node biopsy. Surgery was unremarkable. Patient's vital signs are stable. He has been able to drink without any nausea or vomiting. Patient has a minimal amount of pain at this time. Review of Systems 2 Review of Systems: Appearing in no acute distress head is normocephalic atraumatic eyes pupils are PERRLA sclera is anicteric mouth throat mucous membranes are intact and moist neck is supple no lymphadenopathy, no JVD noted lung sounds are clear to auscultation heart regular rate rhythm, clear S1, S2 positive bowel sounds, abdomen is soft, nontender neuro patient is alert x3, no focal deficits PMFSH Medical History Invasive lobular carcinoma of breast in female Family history of breast cancer Left breast mass Long-term use of Plaquenil Seronegative rheumatoid arthritis Positive TB test Encounter before starting medication Smoker unmotivated to quit Inflammatory arthritis Bilateral hand swelling Joint pain in both hands High blood cholesterol HTN (hypertension) Family History Sister Breast cancer Surgical History Hx of esophagogastroduodenoscopy Hx of colonoscopy Social History Household Members: None Household Members Other:: lives alone Housing: Apartment Are you a primary healthcare educator to a significant other at home: No 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) Alcohol intake: current Alcohol intake frequency: holidays/special occasions only Alcohol type: beer Patient Tobacco Use Status: Current everyday Tobacco user Tobacco use type: Cigarette Cigarette Packs Per Day: 5 Cigarettes Per Day: 5 Second Hand Smoke Exposure: No Substance Use Type: Marijuana service: No Current occupational status: disabled Current occupational exposures/hazards: No Meds Allergies Allergy/AdvReac Type Severity Reaction Status Date / Time No Known Allergies Allergy Mild Verified 11/17/24 08:37 Active Medications: Current Medications Albuterol/Ipratropium (Albuterol/Iprat 2.5/0.5mg 3 Ml Ampul.Neb) 3 ml INHALE DAILY PRN PRN Reason: Wheezing Amlodipine Besylate (Amlodipine Besylate 5 Mg Tablet) 5 mg PO DAILY [facility]; Protocol Aripiprazole (Aripiprazole 5 Mg Tablet) 5 mg PO DAILY [facility] Calcium Carbonate (Calcium Carbonate 750 Mg Tab.Chew) 750 mg PO Q4H PRN PRN Reason: Heartburn Clonidine HCl (Clonidine Hcl 0.1 Mg Tablet) 0.1 mg PO BID [facility]; Protocol Escitalopram Oxalate (Escitalopram Oxalate 10 Mg Tablet) 10 mg PO DAILY [facility] Hydrochlorothiazide (Hydrochlorothiazide 25 Mg Tablet) 25 mg PO DAILY [facility]; Protocol Hydroxychloroquine Sulfate (Hydroxychloroquine Sulfate 200 Mg Tablet) 200 mg PO SuSa@2100 [facility] Hydroxychloroquine Sulfate (Hydroxychloroquine Sulfate 200 Mg Tablet) 200 mg PO DAILY [facility] Lactated Ringer's (Lr) 1,000 mls @ 100 mls/hr IVCONT .Q10H [facility] Last Admin: 11/17/24 07:58 Dose: 100 mls/hr Acetaminophen (Ofirmev) 1,000 mg in 100 mls @ 400 mls/hr IV Q6H [facility] Losartan Potassium (Losartan Potassium 50 Mg Tablet) 100 mg PO DAILY [facility]; Protocol Magnesium Hydroxide (Milk Of Magnesia 30 Ml Oral.Susp) 30 ml PO DAILY PRN PRN Reason: Constipation Melatonin (Melatonin 3 Mg Tablet) 6 mg PO BEDTIME PRN PRN Reason: Insomnia Metoprolol Tartrate (Metoprolol Tartrate 25 Mg Tablet) 25 mg PO BID [facility]; Protocol Morphine Sulfate (Morphine Sulfate 4 Mg/Ml Cartridge) 3 mg IVPUSH Q3H PRN; Protocol PRN Reason: Pain, Severe (Pain Scale 7-10) Nicotine (Nicotine 14 Mg Patch.Td24) 14 mg TRANSDERMA DAILY [facility] Last Admin: 11/17/24 14:36 Dose: Not Given Oxycodone HCl (Oxycodone Hcl Immed Release 5 Mg Tablet) 5 mg PO Q4H PRN PRN Reason: Pain, Moderate(Pain Scale 4-6) Pravastatin Sodium (Pravastatin Sodium 40 Mg Tablet) 40 mg PO DAILY [facility] Sodium Chloride (0.9 % Sodium Chloride Flush 3 Ml Syringe) 3 ml IVFLUSH QSHIFT [facility] Last Admin: 11/17/24 14:02 Dose: Not Given Zolpidem Tartrate (Zolpidem Tartrate 5 Mg Tablet) 5 mg PO BEDTIME PRN PRN Reason: Insomnia Home Medications ?Medication ?Instructions ?Recorded ?Confirmed ?Last Taken ?Type aripiprazole 5 mg tablet (Abilify) 5 mg PO DAILY 05/0811/17/24 Unknown History calcium 500 mg (as 1 tab PO BID 05/09/23 Unknown History carbonate)-vitamin D3 5 mcg (200 unit) tablet (Oyster Shell Calcium-Vitamin D3) hydrochlorothiazide 25 mg tablet 25 mg PO DAILY 11/17/24 Unknown History losartan 100 mg tablet (Cozaar) 100 mg PO DAILY 11/17/24 Unknown History metoprolol tartrate 25 mg tablet 25 mg PO BID 05/09/23 11/17/24 Unknown History pravastatin 40 mg tablet 40 mg PO DAILY 05/09/2311/03 Unknown History zolpidem 5 mg tablet (Ambien) 5 mg PO BEDTIME PRN Inso mnia 05/09/23 11/17/24 Unknown History citalopram 20 mg tablet (Celexa) 20 mg PO DAILY 11/17/24 Unknown History ipratropium 20 mcg-albuterol 100 1 puff inhalation TANYA LY PRN 06/13/23 11/17/24 Unknown History mcg/actuation mist for inhalation Wheezing (Combivent Respimat) amlodipine 5 mg tablet (Norvasc) 5 mg PO DAILY 5 11/17/24 Unknown History pyridoxine (vitamin B6) 50 mg 50 mg PO DAILY 11/13/24 11/17/24 Unknown History tablet (Vitamin B-6) clonidine HCl 0.1 mg tablet 0.1 mg PO DAILY 11/17/24 0 11/17/24 Unknown History hydroxychloroquine 200 mg tablet 200 mg PO SUSA@0900,2 100 11/17/24 11/17/24 Unknown History hydroxychloroquine 200 mg tablet 200 mg PO MOTUWETHFR 11/17/24 11/17/24 Unknown History (Plaquenil) omeprazole 20 mg capsule,delayed 20 mg PO BID 11/17/24 11/17/24 Unknown History release umeclidinium 62.5 mcg/actuation 1 inh inhalation DAILY 11/17/24 11/17/24 Unknown History blister powder for inhalation (Incruse Ellipta) Physical Exam 2 Vital Signs and Narrative: Vital Signs: Last Vital Signs Temp 97.4 F 11/17/24 14:55 Pulse 71 11/17/24 14:55 Resp 18 11/17/24 14:55 BP 120/67 11/17/24 14:55 Pulse Ox 96 11/17/24 14:55 O2 Del Method Nasal Cannula 11/17/24 14:55 O2 Flow Rate 1 11/17/24 14:55 BMI result Body Mass Index 20.7 Appearing in no acute distress head is normocephalic atraumatic eyes pupils are PERRLA sclera is anicteric mouth throat mucous membranes are intact and moist neck is supple no lymphadenopathy, no JVD noted lung sounds are clear to auscultation heart regular rate rhythm, clear S1, S2 positive bowel sounds, abdomen is soft, nontender neuro patient is alert x3, no focal deficits Surgical dressing intact Results Labs 11/18/24 05:34 11/18/24 05:34 Labs: Laboratory Results - last 24 hr 11/17/24 07:37 Blood Type O Positive Antibody Screen NEGATIVE Imaging Radiologist's Impressions: Impressions [place] [facility] Nuclear Med 11/17/24 07:57 IMPRESSION: There is focal activity seen in 4 quadrants around the left breast areola. At 60 minutes there is tracheal of isotope activity extending from the lateral breast to the anterior axilla with a solitary sentinel node visualized. Electronically signed by: Graeme Castillo MD 11/17/2024 10:28 AM EDT Assessment and Plan (1) Left breast mass: Status: Acute Plan 69-year-old woman with invasive lobular carcinoma of the left breast A total mastectomy Management as per surgical team Pain management Hypertension Stable blood pressure on amlodipine, clonidine, hydrochlorothiazide, metoprolol monitor BP closely and avoid post op hypotension mental health continue home medications GERD Continue PPI HLD statin DVT prophylaxis as per surgical team Full code
--- NOTE | 2024-11-17 15:44 | PM.EVENT ---
Event Note Date of Service: 11/18/24 Event Note: Seen postop Underwent mastectomy and sentinel biopsy earlier Seems to have good pain control Stable vital signs Dressings dry CORTNEY drain with dark blood, Pain management Drain care Family updated Time Spent With Patient Time: Total time managing care of this patient today ____ minutes.
[2024-11-18] MEDS: Lactated Ringers 1,000 ML 100 ML IVCONT ×2 (02:23→10:29)
[2024-11-18 03:35] VITALS: BP 117/79; PULSE 62; RESP 18; TEMP 36.1; O2SAT 96
[2024-11-18 06:20] LABS: MANUAL DIFF FLAG NO
[2024-11-18 06:40] LABS: Hematocrit 30.6 % (37.0-47.0); Hemoglobin 10.3 g/dl (12.0-16.0); Imm Gran Abs Auto 0.08 X10*3/uL (0.00-0.03); Imm Gran Pct Auto 0.6 % (0.0-0.4); Lymphocytes Absolute Auto 1.0 X10*3/uL (1.2-4.9); Mean Corpuscular HGB Conc 33.7 g/dl (31.0-35.0); Mean Corpuscular Hemoglobin 31.5 pg (27.0-33.0); Mean Corpuscular Volume 93.6 fL (80.0-98.0); NRBC Abs Auto 0.000 X10*3/uL (0.0-0.012); NRBC Pct Auto 0.0 /100WBC (0.0-0.2); Platelet Count 260 X10*3/uL (160-400); Red Blood Count 3.27 X10*6/uL (4.20-5.50); White Blood Count 12.8 X10*3/uL (4.8-10.8)
[2024-11-18 06:47] LABS: Anion Gap 12 (12-20); Blood Urea Nitrogen 17 mg/dL (9-16); Calcium 8.7 mg/dL (8.4-10.2); Carbon Dioxide 23 mmol/L (22-29); Chloride 104 mmol/L (96-108); Creatinine Clr Calc Pharmacy 55.7; Estimated Glomerular Filt Rate > 60; Potassium 4.7 mmol/L (3.3-5.1); Sodium 134 mmol/L (135-145)
--- NOTE | 2024-11-18 06:59 | PM.PNGS ---
Subjective Subjective Date of Service: 11/18/24 <Jose Antonio Blum - Last Filed: 11/18/24 07:05> 11/18/24 <Chrissy Cardoso PA-C - Last Filed: 11/18/24 08:08> 11/19/24 <Leo Sevilla MD - Last Filed: 11/19/24 16:22> Interval history: 69YOF POD1 from left mastectomy Per RN no significant overnight events and VS have remained stable Approximatley 60cc of bloody drainage overnight into the drain per RN Pain currently controlled with IV tylenol She endorses a slight headache Denies CP, denies difficulty breathing, denies NV She has been up and ambulating without difficulty Presents fully alert and oriented in no acute distress <Jose Antonio Blum - Last Filed: 11/18/24 07:05> Per RN no significant overnight events and VS have remained stable Approximatley 60cc of bloody drainage overnight into the drain per RN Pain currently controlled with IV tylenol She endorses a slight headache Denies CP, denies difficulty breathing, denies NV She has been up and ambulating without difficulty Presents fully alert and oriented in no acute distress <Chrissy Cardoso PA-C - Last Filed: 11/18/24 08:08> Physical Exam Vital Signs: Vital Signs: Last Vital Signs Temp 97.0 F 11/18/24 03:35 Pulse 62 11/18/24 03:35 Resp 18 11/18/24 03:35 BP 117/79 11/18/24 03:35 Pulse Ox 96 11/18/24 03:35 O2 Del Method Room Air 11/18/24 03:35 O2 Flow Rate 1 11/17/24 14:55 BMI result Body Mass Index 20.7 <Jose Antonio Blum - Last Filed: 11/18/24 07:05> Const: General: cooperative, comfortable, no acute distress, alert and awake <Jose Antonio Blum - Last Filed: 11/18/24 07:05> Orientation/consciousness: patient oriented x3 <VICKY Nguyen Last Filed: 11/18/24 08:08> Chest: Other: Breast binder and dressings in place. No erythema, warmth, or leakage from the bandages. Scant blood present in the left breast drain <Jose Antonio Blum - Last Filed: 11/18/24 07:05> Resp: Effort & Inspection: normal respiratory effort <Jose Antonio Blum - Last Filed: 11/18/24 07:05> Auscultation: clear to auscultation bilaterally <Jose Antonio Blum - Last Filed: 11/18/24 07:05> Cardio: Rate: regular rate <Jose Antonio Blum - Last Filed: 11/18/24 07:05> Rhythm: regular rhythm <Jose Antonio Blum - Last Filed: 11/18/24 07:05> Heart sounds: S1 normal heart sound present and S2 normal heart sound present <Jose Antonio Jonlivan Last Filed: 11/18/24 07:05> Skin: General skin exam: no rashes or lesions noted <Chrissy Cardoso PA-C - Last Filed: 11/18/24 08:08> Neuro: General: patient oriented x3 and moves all extremities <VICKY Nguyen Last Filed: 11/18/24 08:08> Objective Data Active Medications Albuterol/Ipratropium (Albuterol/Iprat 2.5/0.5mg 3 Ml Ampul.Neb) 3 ml INHALE DAILY PRN PRN Reason: Wheezing Amlodipine Besylate (Amlodipine Besylate 5 Mg Tablet) 5 mg PO DAILY [facility]; Protocol Aripiprazole (Aripiprazole 5 Mg Tablet) 5 mg PO DAILY [facility] Calcium Carbonate (Calcium Carbonate 750 Mg Tab.Chew) 750 mg PO Q4H PRN PRN Reason: Heartburn Clonidine HCl (Clonidine Hcl 0.1 Mg Tablet) 0.1 mg PO BID [facility]; Protocol Last Admin: 11/17/24 22:04 Dose: 0.1 mg Documented By: ANUSHA Escitalopram Oxalate (Escitalopram Oxalate 10 Mg Tablet) 10 mg PO DAILY [facility] Hydrochlorothiazide (Hydrochlorothiazide 25 Mg Tablet) 25 mg PO DAILY [facility]; Protocol Hydroxychloroquine Sulfate (Hydroxychloroquine Sulfate 200 Mg Tablet) 200 mg PO SuSa@2100 [facility] Hydroxychloroquine Sulfate (Hydroxychloroquine Sulfate 200 Mg Tablet) 200 mg PO DAILY [facility] Lactated Ringer's (Lr) 1,000 mls @ 100 mls/hr IVCONT .Q10H [facility] Last Admin: 11/18/24 02:23 Dose: 100 mls/hr Documented By: ANUSHA Acetaminophen (Ofirmev) 1,000 mg in 100 mls @ 400 mls/hr IV Q6H [facility] Last Infusion: 11/18/24 05:06 Dose: Infused Documented By: ANUSHA Losartan Potassium (Losartan Potassium 50 Mg Tablet) 100 mg PO DAILY [facility]; Protocol Magnesium Hydroxide (Milk Of Magnesia 30 Ml Oral.Susp) 30 ml PO DAILY PRN PRN Reason: Constipation Melatonin (Melatonin 3 Mg Tablet) 6 mg PO BEDTIME PRN PRN Reason: Insomnia Metoprolol Tartrate (Metoprolol Tartrate 25 Mg Tablet) 25 mg PO BID [facility]; Protocol Last Admin: 11/17/24 22:04 Dose: 25 mg Documented By: ANUSHA Morphine Sulfate (Morphine Sulfate 4 Mg/Ml Cartridge) 3 mg IVPUSH Q3H PRN; Protocol PRN Reason: Pain, Severe (Pain Scale 7-10) Nicotine (Nicotine 14 Mg Patch.Td24) 14 mg TRANSDERMA DAILY [facility] Last Admin: 11/17/24 14:36 Dose: Not Given Documented By: JACEK Non-Admin Reason: Patient Refused Oxycodone HCl (Oxycodone Hcl Immed Release 5 Mg Tablet) 5 mg PO Q4H PRN PRN Reason: Pain, Moderate(Pain Scale 4-6) Pravastatin Sodium (Pravastatin Sodium 40 Mg Tablet) 40 mg PO DAILY [facility] Sodium Chloride (0.9 % Sodium Chloride Flush 3 Ml Syringe) 3 ml IVFLUSH QSHIFT [facility] Last Admin: 11/18/24 01:00 Dose: Not Given Documented By: ANUSHA Non-Admin Reason: IV Running Zolpidem Tartrate (Zolpidem Tartrate 5 Mg Tablet) 5 mg PO BEDTIME PRN PRN Reason: Insomnia <Jose Antonio Blum - Last Filed: 11/18/24 07:05> Labs CBC & Chem 7: 11/18/24 05:34 11/18/24 05:34 <Jose Antonio Blum - Last Filed: 11/18/24 07:05> Labs: Laboratory Results - last 24 hr 11/17/24 11/18/24 07:37 05:34 MCV 93.6 MCH 31.5 MCHC 33.7 RDW 11.8 Plt Count 260 MPV 9.8 Immature Gran % (Auto) 0.6 H Neut % (Auto) 86.9 H Lymph % (Auto) 7.5 L [place] % (Auto) 4.9 Eos % (Auto) 0.0 Baso % (Auto) 0.1 Lymph # (Auto) 1.0 L [place] # (Auto) 0.6 Eos # (Auto) 0.0 Baso # (Auto) 0.0 Abs Immat Gran (auto) 0.08 H Absolute Neuts (auto) 11.1 H Absolute Nucleated RBC 0.000 Nucleated RBC % (auto) 0.0 Anion Gap 12 Estim Creat Clear Calc 55.7 Estimated GFR > 60 Fasting Glucose 121 H Calcium 8.7 D Blood Type O Positive Antibody Screen NEGATIVE <Jose Antonio Blum - Last Filed: 11/18/24 07:05> Procedures Date of Service Date of Service: 11/18/24 <Jose Antonio Blum - Last Filed: 11/18/24 07:05> 11/18/24 <Chrissy Cardoso PA-C - Last Filed: 11/18/24 08:08> 11/19/24 <Leo Sevilla MD - Last Filed: 11/19/24 16:22> Progress Note: A&P Assessment and plan (1) S/P left mastectomy: Status: Acute <Jose Antonio Blum - Last Filed: 11/18/24 07:05> Assessment and Plan: Says that she slept well Denies significant pain CORTNEY drain with old blood She looks well clinically We will re-evaluate this afternoon for possible discharge Seen and examined independently Drain care <Leo Sevilla MD - Last Filed: 11/19/24 16:22> Assessment and Plan: 69YOF POD1 from left mastectomy HP as above She is doing quite well this morning Continue pain control Continue ambulating as tolerated Encourage use of spirometry ten times per hour Continue to monitor drain for output <Jose Antonio Blum - Last Filed: 11/18/24 07:05> 69YOF POD1 from left mastectomy HP as above She is doing quite well this morning Continue pain control Continue ambulating as tolerated Encourage use of spirometry ten times per hour Continue to monitor drain for output Agree with above assessment and plan by Kulwant DEY. POD #1 s/p left simple mastectomy, left axillary sentinel lymph node biopsy. She is doing very well post op, pain minimal and well controlled. VSS. Mastectomy site with clean and intact dressing, no fullness, small amount of ecchymosis on superior flap, CORTNEY drain low sanguineous output. Encouraged OOB/ambulation of halls and increasing activity, IS use. Will reassess later today. If remains comfortable and ambulating without difficulty, will dc to home with drain in place with VNA services. Patient comfortable with plan. <Chrissy Cardoso PA-C - Last Filed: 11/18/24 08:08> Time Spent With Patient Time: Total time managing care of this patient today ____ minutes. <Jose Antonio Blum - Last Filed: 11/18/24 07:05> Quality Stroke Does the patient have a stroke diagnosis?: No <Chrissy Cardoso PA-C - Last Filed: 11/18/24 08:08> VTE Prior VTE?: No <Chrissy Cardoso PA-C - Last Filed: 11/18/24 08:08> VTE Risk Level:: Medical - moderate - high <Jose Antonio Blum - Last Filed: 11/18/24 07:05> VTE Device Contraindication: N/A - Device Ordered <Jose Antonio Blum - Last Filed: 11/18/24 07:05> VTE Drug Contraindication: N/A - Med Ordered <Jose Antonio Blum - Last Filed: 11/18/24 07:05>
[2024-11-18 07:40] VITALS: BP 119/73; PULSE 61; RESP 18; TEMP 36.3; O2SAT 96
--- NOTE | 2024-11-18 09:47 | HO.POSTANES ---
Post Anesthesia Evaluation Post Anesthesia Evaluation Date of Service: 11/18/24 Vital Signs: Vital Signs Temp Pulse Resp BP Pulse Ox O2 Del Method 11/18/24 07:40 97.4 F 61 18 119/73 96 Room Air 11/18/24 03:35 97.0 F 62 18 117/79 96 Room Air Anesthesia: General Mental Status: Awake Pain Control: Satisfactory Nausea/Vomiting: None Hydration: Adequate Anesthesia-Related Issues: No Anes. Related Issues
--- NOTE | 2024-11-18 14:16 | W.MHC.F2F ---
Service Date Service Date: 11/18/24 Encounter Date of encounter: 11/18/24 Reasons for Services Signs and symptoms assessed: pain control, activity mastectomy incision appearance, CORTNEY drain output Reason for [facility]: wound care and postoperative assessment and/or care (CORTNEY drain care ) Homebound: Leaving the home is medically contraindicated at this time without the asist of a device and/or another person due th the listed conditions above and below. Reason homebound: weakness related to hospital stay and unable to drive Homebound supporting statement: Ms. Sevilla is s/p left simple mastectomy with left axillary sentinel lymph node biopsy on 11/17/24. She will need VNA services for CORTNEY drain care. Certification: Based on the above findings, I certify that this patient is confined to the home and needs intermittent [facility] care, physical therapy and/or speech therapy, or continues to need occupational therapy. The patient is under my care, and I have initiated the establishment of the plan of care. The patient will be followed by a physician who will periodically review the plan of care. Time Spent With Patient Time: Total time managing care of this patient today ____ minutes.
--- NOTE | 2024-11-18 14:17 | MHC.CM.PN ---
Addendum entered by Claire Melendez 11/18/24 14:53: DP: PT HAS BEEN MEDICALLY CLEARED FOR DC HOME, NO SERVICES. PT 'S FAMILY WILL TRANSPORT HOME Original Note: [facility] DELIVERED PT LIVES WITH ADULT CHILDREN AND IS FUNCTIONALLY INDEPENDENT. PT HAS 1 HOUR DAILY OF SUPERINTENDENT DRILLING SERVICES. NO DME. PT DECLINES COMPLETING A HCP AT THIS TIME. PCP PATRICK ARELLANO DP: HOME WITH NEW [facility] FOR ALF VISITS. [facility] ACCEPTS (PT FIRST CHOICE) PT'S DAUGHTER WILL TRANSPORT. CM WILL CONTINUE TO FOLLOW FOR ANY CHANGE TO DC PLAN/NEEDS.
--- NOTE | 2024-11-18 14:19 | PM.EVENT ---
Event Note Date of Service: 11/18/24 Event Note: Patient reassessed this afternoon. She feels well with minimal incisional pain. She has been OOB and ambulating. Dressing changed- mastectomy incision clean appearing, steris intact, superior and inferior flaps viable, small amount of ecchymosis of superior flap laterally, no fullness, CORTNEY drain output remains sanguineous but low, drain milked to ensure drainage. She is hemodynamically stable. She feels ready for dc to home. She is stable for dc to home today with VNA services. patient comfortable with plan. F/u in office in 1 week. Time Spent With Patient Time: Total time managing care of this patient today ____ minutes.
--- NOTE | 2024-11-18 14:22 | PM.DS ---
DS: Providers Provider Date of Service: 11/18/24 Date of admission: 11/17/24 07:12 Date of discharge: 11/18/24 Primary care physician: Cristy Monet MD Attending physician on admission: Leo Sevilla Consults: 11/17/24 14:00 Consult to Hospitalist Routine Comment: Consulting Provider: [facility] Hospitalists Reason For Exam: s/p left mastectomy, HTN, RA, smoker Attending physician on discharge: Leo Sevilla DS: Diagnosis Discharge Diagnosis (1) S/P left mastectomy: Status: Acute DS: Summary Hospital Course Hospital Course: HPI AT ADMISSION: [age] year female referred for a left breast mass. She had a mammogram showing a mass in the left breast at the 2 o'clock position measuring 9 x 6 x 9 mm. She was brought in for diagnostic ultrasound and mammogram for the left breast which showed a solid irregular mass at the 2 o'clock position, 8 cm from the nipple. An ultrasound biopsy was therefore done last 02/04/2025 and she is here to discuss the findings. She describes some ecchymosis on the biopsy site. There were also grouped coarse heterogenous calcifications in the upper outer quadrant which have been stable compared to prior magnification views. She denies any palpable mass. Her menarche was at the age of 14. Her 1st was at age of 19. She had 3 pregnancies. She had menopause at the age of 50. She says her sister had breast cancer at the age of 38. She smokes half a pack a day and has done so for most of her life. Pathology revealed invasive lobular carcinoma left breast. Treatment options were reviewed and she elected to proceed left simple mastectomy and left axillary sentinel node biopsy. She now presents for the planned procedure. HOSPITAL COURSE: On 11/17/24, left simple mastectomy with left axillary sentinel lymph node biopsy was performed by Dr. Sevilla without immediate complication. The patient tolerated the procedure well. She was admitted following the procedure for observation. She had an uncomplicated recovery course. On POD #1, she felt well and her pain was well controlled on oral analgesics. They were tolerating solid diet and ambulating without difficulty. She was hemodynamically stable. Her mastectomy incision was clean appearing and upper and lower flaps were viable. CORTNEY drain sanguineous, butlow. She was reassessed later in the day and felt ready for discharge. She was discharged to home on 11/18/24 with VNA services for drain care. She is to follow up in the office in 1week for wound and drain check. Status at Discharge Functional status at discharge: independent ambulation Overall status at discharge: patient is progressing back to baseline Time Attestation Discharge Coordination Time (in mins): 35 Quality: Safe Use of Opioids Does Pt have an Active Cancer Diagnosis on the Problem List?: Yes Opioid Measure Date for [facility] Report: 10/20/24 Opioid Measure Time for [facility] Report: 12:58 Quality: Stroke Does the patient have a stroke diagnosis?: No Physical Exam Vital Signs: Vital Signs: Last Vital Signs Temp 97.4 F 11/18/24 07:40 Pulse 61 11/18/24 07:40 Resp 18 11/18/24 07:40 BP 119/73 11/18/24 07:40 Pulse Ox 96 11/18/24 07:40 O2 Del Method Room Air 11/18/24 07:40 O2 Flow Rate 1 11/17/24 14:55 BMI result Body Mass Index 20.7 Const: General: comfortable, no acute distress and alert Orientation/consciousness: patient oriented x3 Chest: Other: mastectomy incision clean appearing, steris intact, superior and inferior flaps viable, small amount of ecchymosis of superior flap laterally, no fullness, CORTNEY drain output remains sanguineous but low Resp: Effort & Inspection: normal respiratory effort Skin: General skin exam: no rashes or lesions noted Neuro: General: patient oriented x3 and moves all extremities DS: Data Data Completed and Pending Pending studies at discharge: Pending at discharge 11/17/24 12:07 Surgical [PTH] Routine Labs on day of discharge: Laboratory Results - last 24 hr 11/18/24 05:34 WBC 12.8 H RBC 3.27 L D Hgb 10.3 L D Hct 30.6 L D MCV 93.6 MCH 31.5 MCHC 33.7 RDW 11.8 Plt Count 260 MPV 9.8 Immature Gran % (Auto) 0.6 H Neut % (Auto) 86.9 H Lymph % (Auto) 7.5 L [place] % (Auto) 4.9 Eos % (Auto) 0.0 Baso % (Auto) 0.1 Lymph # (Auto) 1.0 L [place] # (Auto) 0.6 Eos # (Auto) 0.0 Baso # (Auto) 0.0 Abs Immat Gran (auto) 0.08 H Absolute Neuts (auto) 11.1 H Absolute Nucleated RBC 0.000 Nucleated RBC % (auto) 0.0 Sodium 134 L Potassium 4.7 Chloride 104 Carbon Dioxide 23 Anion Gap 12 BUN 17 H Creatinine 0.81 Estim Creat Clear Calc 55.7 Estimated GFR > 60 Fasting Glucose 121 H Calcium 8.7 D Discharge Plan Discharge Anticipated Discharge Date/Time: 11/18/24 14:14 Patient Disposition: Home Health Service Discharge Diagnosis: s/p left simple mastectomy, left axillary sentinel lymph node biopsy Referrals: Mauri RAMSEY [Outside] - 1 Week Referral Note: HOME SERVICES FOR CUSTODIAL- A NURSE WILL CALL YOU TO SET UP FIRST VISIT Cristy Monet MD [Primary Care Provider, Internal Medicine] - 1 Week Leo Sevilla MD [Physician, General Surgery] - 1 Week Discharge Medications: New docusate sodium [Colace] 100 mg capsule 100 mg PO BID PRN (Reason: constipation) Qty: 30 0RF oxycodone 5 mg tablet 5 mg PO Q4H PRN (Reason: pain (scale score 7-10)) Qty: 30 0RF Rx Instructions: Partial Fill upon patient request. Continued pyridoxine (vitamin B6) [Vitamin B-6] 50 mg tablet 50 mg PO DAILY amlodipine [Norvasc] 5 mg tablet 5 mg PO DAILY ondansetron 4 mg tablet,disintegrating 4 mg PO Q8H PRN (Reason: nausea and vomiting) Qty: 7 0RF clonidine HCl 0.1 mg tablet 0.1 mg PO DAILY omeprazole 20 mg capsule,delayed release(DR/EC) 20 mg PO BID hydroxychloroquine 200 mg tablet 200 mg PO SUSA@0900,2100 Incruse Ellipta 62.5 mcg/actuation blister with device 1 inh inhalation DAILY hydroxychloroquine [Plaquenil] 200 mg tablet 200 mg PO MOTUWETHFR Rx Instructions: Take 1 tablets daily from Sunday to Sunday and 1 tablet twice a day Sunday and Sunday citalopram [Celexa] 20 mg tablet 20 mg PO DAILY Combivent Respimat 20-100 mcg/actuation mist 1 puff inhalation DAILY PRN (Reason: Wheezing) losartan [Cozaar] 100 mg tablet 100 mg PO DAILY metoprolol tartrate 25 mg tablet 25 mg PO BID hydrochlorothiazide 25 mg tablet 25 mg PO DAILY calcium carbonate-vitamin D3 [Oyster Shell Calcium-Vit D3] 500 mg-5 mcg (200 unit) tablet 1 tab PO BID zolpidem [Ambien] 5 mg tablet 5 mg PO BEDTIME PRN (Reason: Insomnia) pravastatin 40 mg tablet 40 mg PO DAILY aripiprazole [Abilify] 5 mg tablet 5 mg PO DAILY isoniazid 300 mg tablet 300 mg PO DAILY 30 Days Qty: 30 5RF Discharge Orders: Discharge Order (Routine); Ordered 11/18/24 Ordered By: Chrissy Cardoso Diet: Advance to usual diet Activity on Discharge: No heavy lifting Stand Alone Forms: Patient Portal Discharge page Print Language: Moroccan Activity Restrictions/Additional Instructions: If the incision area is tender, you may apply an ice pack for short intervals (No more than 20 minutes on, followed by at least 20 minutes off). Do not apply heat. Do not use creams, lotions, or topical antibiotics. These can cause infection or allergic reaction. Ok to shower 11/19/24. You have steristrips covering your incision. These will fall off in around 1 week (ok if sooner). NO HEAVY LIFTING (>10lbs) with your left arm. CORTNEY drain care- empty drain BID and as needed. Record output. Bring record to follow up appointment. Follow up in office in 1 week. ([phone]) Call Your Doctor If: ? ? -Your temperature exceeds 101.5? F? ? ? -You experience excessive pain or swelling ? ? -You have an unexpected reaction to medication ? ? -You have excessive bleeding ? ? -You experience continued vomiting/nausea ? ? -Your incision begins to separate ?? ? -Your incision shows signs of infection such as increased redness, swelling, excessive pain, drainage (light blood or clear fluid is normal) or heat Care Plan Goals: Return to baseline health and resume normal activities following recovery period. Eventual CORTNEY drain removal. Health Concerns: invasive lobular carcinoma left breast Plan of Treatment: s/p left simple mastectomy, left axillary sentinely lymph node biopsy pain control VNA services for CORTNEY drain care F/u in office for wound and drain check Assessment: Doing well post op. Discharge Date/Time: 11/18/24 14:50
--- NOTE | 2024-11-18 14:50 | PC.NURSE ---
pt and family educated and d/c paperwork was given to pt's son
== END 2024-11-18 14:50 | disposition home health service (06) | DRG 581 ==
LOC: HO.SSSA 07:19 → HO.S3 13:44
PROVIDERS: Physician Assistant Surgical; Admitting Provider Surgery; PCP Internal Medicine; Visit Provider Surgery
PROC: 07B60ZX Excision of Left Axillary Lymphatic, Open Approach, Diagnostic (ICD-10-PCS; CPT 19303; principal; 2024-11-17 10:30)
PROC: 07B60ZX Excision of Left Axillary Lymphatic, Open Approach, Diagnostic (ICD-10-PCS; 2024-11-17 10:30)
DX: C50.412 Malignant neoplasm of upper-outer quadrant of left female breast (principal); G89.18 Other acute postprocedural pain; F17.210 Nicotine dependence, cigarettes, uncomplicated; Z71.6 Tobacco abuse counseling; Z79.899 Other long term (current) drug therapy
CPT/HCPCS: 36415; 78195; 80048; 85025; 86850; 86900; 86901; 88307; 88342; A9520; J0131; J0665; J0690; J1100; J1171; J1596; J2003; J2405; J2704; J2795; J3010; J7120; Q9968

== ENCOUNTER → 2024-11-17 07:12 | Outpatient (BNV) | payer OTHER, SELFPAY | PROVIDERS: Admitting Provider Surgery; PCP Internal Medicine; Visit Provider Surgery | DX: C50.912 Malignant neoplasm of unspecified site of left female breast (principal); Z90.12 Acquired absence of left breast and nipple | CPT/HCPCS: 99024; 99499; G0180 ==

== ENCOUNTER → 2024-11-17 07:12 | Outpatient (BNV) | payer OTHER, SELFPAY | PROVIDERS: Admitting Provider Surgery; PCP Internal Medicine; Visit Provider Nurse Practitioner Acute Care | DX: N63.20 Unspecified lump in the left breast, unspecified quadrant (principal) | CPT/HCPCS: 99222 ==

== ENCOUNTER 2024-12-01 14:46 | Outpatient (AMB) | payer OTHER, SELFPAY ==
--- NOTE | 2024-12-01 15:20 | MHC.OFFVIS ---
Vital Signs 12/01/24 15:26 Height 5 ft 3 in Weight 119 lb 4 oz BMI 21.1 BP 118/72 Blood Pressure Location Lt brachial Position Sitting Pulse 63 Intake Visit Reasons: S/P Lt breast mastectomy w/SN bx Intake Note: This patient presents for post-op assessment status post left breast mastectomy with sentinel node biopsy. Pt c/o; reports a rash from the tape, reports she last emptied the drain last night, output as of 12/01/2024 0328pm less than 20 mL. [employer] Required: Yes [employer] Language: Cognos Administrator Services: [employer] Offered & Declined Accompanied by: Other Relationship Allergies No Known Allergies Allergy (Mild, Verified 12/01/24 15:29) HPI HPI S/P Lt breast mastectomy w/SN bx: Details: She had undergone mastectomy and sentinel node biopsy last November 17, 2024 for invasive lobular carcinoma of the breast. She says she has been doing well at home. She denies any significant complaints. She says she has a very minimal output from her drain. [facility] Medical History Invasive lobular carcinoma of breast in female Family history of breast cancer Left breast mass Long-term use of Plaquenil Seronegative rheumatoid arthritis Positive TB test Encounter before starting medication Smoker unmotivated to quit Inflammatory arthritis Bilateral hand swelling Joint pain in both hands High blood cholesterol HTN (hypertension) Surgical History History of total mastectomy of left breast (~11/17/24) Hx of esophagogastroduodenoscopy Hx of colonoscopy Family History Sister Breast cancer Social History Household Members: None Household Members Other:: lives alone Housing: Apartment Are you a primary manager of care to a significant other at home: No Do you presently have visiting nurse or other home services: Yes ([employer]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) Alcohol intake: current Alcohol intake frequency: holidays/special occasions only Alcohol type: beer Patient Tobacco Use Status: Current everyday Tobacco user Tobacco use type: Cigarette Cigarette Packs Per Day: 5 Cigarettes Per Day: 5 Second Hand Smoke Exposure: No Substance Use Type: Marijuana service: No Current occupational status: disabled Current occupational exposures/hazards: No Review of Systems Const Denies chills and Denies fever(s) Card Denies chest pain, Denies dyspnea and Denies dyspnea on exertion Resp Denies cough, Denies dyspnea and Denies dyspnea on exertion GI Denies hematochezia and Denies change in bowel habits Denies hematuria Musc Denies back pain and Denies limited range of motion Neuro Denies focal weakness and Denies convulsions Psych Denies depression and Denies mood swings Physical Exam Vital Signs: Last Vital Signs Pulse 63 12/01/24 15:26 BP 118/72 12/01/24 15:26 BMI result Body Mass Index 21.1 Const General: comfortable and no acute distress Chest Other: Mastectomy site well healed, CORTNEY drain very minimal output no evidence of infection or seroma or hematoma Assessment & Plan Assessment & Plan (1) Invasive lobular carcinoma of breast in female: Code(s): C50.919 - Malignant neoplasm of unspecified site of unspecified female breast Category: Medical Plan: Status post mastectomy left breast, with sentinel biopsy. Her final path report shows a T1 N0, ERPR positive, HER2 equivocal. invasive lobular carcinoma with lobular carcinoma in Situ. There were 2 sentinel lymph nodes which were negative for metastatic carcinoma. I removed her drain The incision is well healing. There is no evidence of any hematoma, infection or seroma formation We will see her again in the office in about 1 month for another wound check. She says she already has an appointment with the her oncologist for follow up discuss the next step in her care. Coding Level of Care Code Global (74000) Diagnoses Invasive lobular carcinoma of breast in female C50.919
[2024-12-01 15:26] VITALS: BP 118/72; PULSE 63; BMI 21.1
--- OUTSIDE RECORDS SUMMARY | 2024-12-01 16:40 | XMS_ITS | Encounter Summary ---
Author Organization [employer] Address [address] [place] [address] Care Team Providers Care Director Of Pupil Personnel Program Name Role Phone Cristy Monet MD Primary Care Provider + Sung Rand PharmD Unavailable [phone] Reason for Visit * Reason Comments Med Refill Encounter Details Date Type Department Care Team ([facility] st Contact Info) Description 02/03/2024 Refill [facility] [address] [place], [place] [phone] Niru Oakes MD [address] [place] [address] Resistant hypertension Social History Tobacco Use Types [...] Info) Description 12/11/2024 11:00 AM EDT Telemedicine [facility] [address] [place] [address] Sung Rand, Bill [address] [place] [address] 03/16/2025 11:00 AM EST Office Visit [facility] [address] [place] [address] Indiana Colbert, OD [address] [place] [address] documented as of this encounter Visit Diagnoses Diagnosis Resistant hypertension documented in this encounter Care Teams Director Of Pupil Personnel Program Relationship Specialty Start Date End Date Cristy Monet MD [address] [place] [phone] PCP - General Family Medicine 12/12/19 Sung Rand, PharmD [address] [place] [phone] Pharmacist Internal Medicine 05/27/24 documented as of this encounter
--- OUTSIDE RECORDS SUMMARY | 2024-12-01 16:40 | XMS_ITS | Encounter Summary ---
Author Organization [employer] Address [address] [facility] [address] [place] [address] Care Team Providers Care Door Trimmer Name Role Phone Cristy Monet MD Primary Care Provider + Sung Rand PharmD Unavailable [phone] Reason for Visit * Reason Comments Med Refill Encounter Details Date Type Department Care Team ([facility] st Contact Info) Description 01/14/2024 Refill [facility] [address] [place], [place] [phone] Cristy Monet MD [address] [place], [place] [phone] Social History Tobacco Use Types Packs/Day Years [...] Info) Description 12/11/2024 11:00 AM EDT Telemedicine [facility] [address] [place] [address] Sung Rand, PharmSymone [address] [place] [address] 03/16/2025 11:00 AM EST Office Visit [facility] [address], [place] [phone] Indiana Colbert, OD [address] [place] [address] documented as of this encounter Visit Diagnoses Not on filedocumented in this encounter Care Teams Door Trimmer Relationship Specialty Start Date End Date Cristy Monet MD [address] [place] [phone] PCP - General Family Medicine 12/12/19 Sung Rand, PharmD [address] [place] [address] [phone] Pharmacist Internal Medicine 05/27/24 documented as of this encounter
--- OUTSIDE RECORDS SUMMARY | 2024-12-01 16:40 | XMS_ITS | Clinical Summary ---
Author Organization [employer] Address [address] [place] [address] Care Team Providers Care Recreation Therapy Aides Teacher Name Role Phone Cristy Monet MD Primary Care Provider + Sung Rand PharmD Unavailable [phone] Allergies Active Allergy Reactions Criticality Noted Date [...] USING 30 each 11/12/19 25 Active Umeclidinium [place] (Incruse Ellipta) 62.5 MCG/ACT aerosol powder Inhale [...] this year, borders were negative Follow-up with [facility] ATTENDANT in 6 months Memory impairment 07/14/2024 Assessment & Plan (08/22/2024 11:00 AM EDT): Doing well on aspirin 81 mg, tolerates well. Advised to optimal control risk factors as mentioned at previous visit. His CT scan of the brain is normal, not showing microvascular changes. She has a RESOLUTION EXPERT to help her with ADLs and remind [...] Stable managed with beta cayla Substance abuse ([facility]) 01/04/2024 Assessment & Plan (08/22/2024 10:58 AM [...] twice daily Will check regarding referral to production support engineer due to resistant hypertension (8 was done [...] Stable, denies active claudication Seronegative rheumatoid arthritis (CMS/HCC) 07/2012 Overview (01/04/2024): She has no hemoptysis and [...] seems to be better controlled, seen by lubricating specialist Assessment & Plan (06/27/2023 10:39 AM EDT): - seen by rheumatology, reminded her to get labs done today and f/u with lubricating specialist Assessment & Plan (06/27/2023 9:57 AM EDT): [...] I will refer to rheumatology in [facility] to improve compliance w/ appointment Assessment & [...] Encounters Date Type Department Care Team Description 11/19/2024 Telephone [facility] [address] Cristy Monet MD fyi; med list 11/12/2024 Telephone [facility] [address] Cristy Monet MD 11/11/2024 Refill [facility] [address] Cristy Monet MD 11/10/2024 Telephone [facility] [address] Cristy Monet MD Chart Prep 11/08/2024 Results Follow-Up [facility] [place] [address] Cristy Monet MD Hematoxylin and Eosin Stain 11/05/2024 Orders Only GENERIC EXTERNAL DATA DEPARTMENT Provider, Generic External Data 10/27/2024 Telephone [facility] [place] [address] Sung Rand, PharmD 10/23/2024 11:30 AM EDT Telemedicine [facility] [address] Sung Rand, PharmD Primary hypertension (Primary Dx) 10/15/2024 Orders Only [facility] [place] [address] Cristy Monet MD 10/08/2024 Telephone [facility] [address] [place] [address] Cristy Monet MD Normal imaging letter 10/08/2024 Results Follow-Up [facility] [address] [place] [address] Cristy Monet MD US RENAL DOPPLER 09/25/2024 11:30 AM EDT Telemedicine [facility] [address] [place] [address] Sung Rand, PharmD Primary hypertension (Primary Dx); History of non-ST elevation myocardial infarction (NSTEMI) 09/04/2024 Refill [facility] [address] [place] [address] Cristy Monet MD from Last 3 Months Immunizations Immunization Administration [...] Info) Description 12/11/2024 11:00 AM EDT Telemedicine [facility] [address] [place] [address] Sung Rand, PharmD [address] [place] [address] 03/16/2025 11:00 AM EST Office Visit [facility] [address] [place], [place] [phone] Filemon[place]iana trevino, OD [address] [place] [address] Health Maintenance Due Date Last Done Comments [...] Procedure Name Priority Date/Time Associated Diagnosis Comments NM SENTINEL NODE W IMAGING Routine 11/17/2024 7:57 AM EDT HEMATOXYLIN AND EOSIN STAIN Routine 11/05/2024 9:37 [...] Routine 10/01/2024 1:12 PM EDT Resistant hypertension HM COLONOSCOPY Routine 12/25/2023 LIPID PANEL, STANDARD Routine 12/19/2023 9:22 AM EDT HEPATITIS PANEL, GENERAL Routine 12/04/2023 9:36 AM EDT Encounter for preventive health examination THINPREP IMAGING PAP REFL HPV MRNA(IF ASCUS,ASC-H,LSIL) Routine 10/18/2023 10:43 AM EDT from Last 3 Months or Most Recently Relevant to Health Maintenance Results * NM SENTINEL NODE W IMAGING (11/17/2024 7:57 AM EDT) Anatomical Region Laterality Modality Nuclear Medicine 11/17/2024 7:57 AM EDT Narrative 11/17/2024 10:31 AM EDT [place] [address] Nuclear Medicine Report Signed Patient: Delilah Sevilla MR#: [id number] 39 : 1955 Acct:[id number] Age/Sex: 69 / F ADM Date: 11/17/24 Loc: TJ SSSA-[address]: Leo Sevilla MD Ordering Physician: Leo Sevilla MD Date of Service: 11/17/24 Procedure(s): NM sentinel node w imaging Accession Number(s): [id number] cc: Cristy Monet MD; Leo Sevilla MD Reason for Exam: C50.919 - Malignant neoplasm of unspecified site of unspecified female b... EXAMINATION: Nuclear medicine sentinel node imaging. CLINICAL INDICATION: Malignant neoplasm left breast. COMPARISON: Mammogram 11/05/2024. TECHNIQUE: Left sentinel node procedure consent was obtained by the referring physician. 4% lidocaine cream was applied around the left breast areola 30 minutes prior to the exam. Patient arrived in nuclear medicine department and the area around the left breast at 11 is cleaned and aseptic sterile manner. 0.5 mCi of 90 9M technetium lymphoscintigraphy divided in 4 equal doses was subdermally injected in 4 quadrants around the left breast areola and imaging obtained at 30 minutes and 60 minutes. Patient tolerated procedure extremely well. FINDINGS/ NM/NM sentinel node w imaging IMPRESSION: There is focal activity seen in 4 quadrants around the left breast areola. At 60 minutes there is tracheal of isotope activity extending from the lateral breast to the anterior axilla with a solitary sentinel node visualized. Electronically signed by: Graeme Castillo MD 11/17/2024 10:28 AM EDT Dictated By: Graeme Castillo MD Signed By: <Electronically signed by Graeme Castillo MD in OV> 11/17/24 1028 DD/ 0757 TD/TT: 11/17/24 0930 Commercial Property Administrator: [facility] Procedure Note Donotuseinterpreter, Image - 11/17/2024 [place] [address] Nuclear Medicine Report Signed Patient: Delilah Sevilla#: [id number] 39 : 8Acct:[id number] Age/Sex: 69 / FADM Date: 11/17/24 Loc: HO.SSSA SSSA-[address]: Leo Sevilla MD Ordering Physician: Leo Sevilla MD Date of Service: 11/17/24 Procedure(s): NM sentinel node w imaging Accession Number(s): [id number] cc: Cristy Monet MD; Leo Sevilla MD Reason for Exam: C50.919 - Malignant neoplasm of unspecified site ofunspecified female b... EXAMINATION: Nuclear medicine sentinel node imaging. CLINICAL INDICATION: Malignant neoplasm left breast. COMPARISON: Mammogram 11/05/2024. TECHNIQUE: Left sentinel node procedure consent was obtained by the referring physician. 4% lidocaine cream was applied around the left breast areola 30 minutes prior to the exam. Patient arrived in nuclear medicine department and the area around the left breast at 11 is cleaned and aseptic sterile manner. 0.5 mCi of 90 9M technetium lymphoscintigraphy divided in 4 equal doses was subdermally injected in 4 quadrants around the left breast areola and imaging obtained at 30 minutes and 60 minutes. Patient tolerated procedure extremely well. FINDINGS/ NM/NM sentinel node w imaging IMPRESSION: There is focal activity seen in 4 quadrants around the left breast areola. At 60 minutes there is tracheal of isotope activity extending from the lateral breast to the anterior axilla with a solitary sentinel node visualized. Electronically signed by: Graeme Castillo MD 11/17/2024 10:28 AM EDT Dictated By: Graeme Castillo MD Signed By: <Electronically signed by Graeme Castillo MD in OV> 11/17/24 1028 DD/ 0757 TD/TT: 11/17/24 0930 Commercial Property Administrator: [facility] External Provider IMG NM PROCEDURES Edited Result - Final * Hematoxylin and Eosin Stain (11/05/2024 9:37 AM EDT) 11/05/2024 9:37 AM EDT 11/05/2024 10:32 AM EDT [facility] - 11/19/2024 10:25 AM EDT ----- ------- Name: Delilah Sevilla Age/Sex: 69/F : 1955 Unit#: [id number] Attend Dr: Leo Sevilla MD Re11/05/24 Status: DEP REF Location: [facility] Disch: ----- ------- SPEC : [id number] RECD: 11/05/24 STATUS: PANKAJ [place] NUM: [id number] A[place]: 11/05/[address]: Elda Graham DO ENTERED: 11/05/24 SP TYPE: Surgical OTHR DR: Cristy Monet MD, Francis MD ORDERED: HE Stain/2, Gross Micro L4, ER, AZ, IHC, Add. immunos, IHC ER/AZ/Her2N/4, E-cadherin, Sophia-3, Ki-67, [id number] COMMENTS: Block A/1 H E/1 stained slide sent to [facility] for HER2 FISH on 11/07/24. As per the specimen requisition slip the specimen is collected at 0937 and placed in formalin at 0941. Addendum Addendum 1 Entered: 11/19/24-1024 (A): [id number] ([employer]): Results: Negative Interpretation: Average HER2 signals/nucleus: 2.02 Average CEN17 signals/nucleus: 1.74 HER2/CEN17 signal ratio: 1.16 Number of observers: 1 Results show no evidence of HER2 amplification and a HER2/CEN17 ratio of <2.0 with an average HER2 copy number <4.0 signals per cell. This is a negative result. See the entire scanned report in the EMR - reports/pathology section. Addendum Signed (signature on file) Glo Lavelle 11/19/24 1025 ----- ------- Diagnosis Breast, left, 2:00, core biopsy: -Invasive lobular carcinoma, MSBR grade 2. Synoptic report Procedure: Core biopsy Specimen laterality: Left Histologic type: Invasive lobular carcinoma. Histologic grade (George/MSBR histologic score): 2 - Glandular/tubular differentiation: Score: 3 - Nuclear pleomorphism: Score: 2 CONTINUED ON NEXT PAGE ----- ------- Name: Delilah Sevilla Age/Sex: 69/F : 1955 Unit#: [id number] Attend Dr: Leo Sevilla MD Re11/05/24 Status: DEP REF Location: HO.MAMMO Disch: ----- ------- SPEC : [id number] RECD: 11/05/24 STATUS: PANKAJ RELes NUM: [id number] [place]: 11/05/[address]: Elda Graham DO ENTERED: 11/05/24 SP TYPE: Surgical OTHR DR: Cristy Monet MD, Francis MD ORDERED: HE Stain/2, Gross Micro L4, ER, AZ, IHC, Add. immunos, IHC ER/AZ/Her2N/4, E-cadherin, Sophia-3, Ki-67, [id number] COMMENTS: Block A/1 H E/1 stained slide sent to [facility] for HER2 FISH on 11/07/24. As per the specimen requisition slip the specimen is collected at 0937 and placed in formalin at 0941. Diagnosis (Continued) - Mitotic rate: Score: 1 Tumor size: [...] 20, 15%) -Controls (external and internal): Appropriate [employer] HER2 FISH analysis pending; addendum to follow. [...] positive for GATA3 and negative for E- cadherin. Controls stain appropriately. Material Received Left breast mass 2 o'clock, ? CA vs other CONTINUED ON NEXT PAGE ----- ------- Name: Delilah Sevilla Age/Sex: 69/F : 1955 Unit#: [id number] Attend Dr: Leo Sevilla MD Re11/05/24 Status: DEP REF Location: [facility] Disch: ----- ------- SPEC : [id number] RECD: 11/05/24 STATUS: PANKAJ [place] NUM: [id number] [place]: 11/05/[address] [facility] [address]: Elda Graham DO ENTERED: 11/05/24 SP TYPE: Surgical OTHR DR: Cristy Monet MD,Leo JEAN-BAPTISTE ORDERED: HE Stain/2, Gross Micro L4, ER, AZ, IHC, Add. immunos, IHC ER/AZ/Her2N/4, E-cadherin, Sophia-3, Ki-67, [id number] COMMENTS: Block A/1 H E/1 stained slide sent to [facility] for HER2 FISH on 11/07/24. As per the specimen requisition slip the specimen is collected at 0937 and placed in formalin at 0941. Gross Description Received in formalin labeled left [...] automated immunostain methods: Estrogen receptor: Clone SP1; [place] CONFIRM [employer] [place] DAB Progesterone receptor: Clone 1E2; [place] CONFIRM [employer] [place] DAB HER2: FDA-approved [place] PATHWAY anti-HER-2/roebrt (4B5) Monoclonal; [employer] [place] DAB Controls are performed and evaluated for [...] includes negative and incomplete faint/barely perceptible staining in 10% tumor cells or less. The Low category (1+) includes incomplete faint/barely perceptible staining in > 10% of tumor cells. The Equivocal (2+) category reflects weak to moderate incomplete, or nonuniform circumferential staining, in >10% tumor cells, or strong circumferential staining in less than 10% of the tumor. The Equivocal category includes a CONTINUED ON NEXT PAGE ----- ------- Name: Delilah Sevilla Age/Sex: 69/F : 1955 Unit#: [id number] Attend Dr: Leo Sevilla MD Re11/05/24 Status: DEP REF Location: [facility] Disch: ----- ------- SPEC : [id number] RECD: 11/05/24 STATUS: PANKAJ [place] NUM: [id number] [place]: 11/05/[address]: Elda Graham DO ENTERED: 11/05/24-1034 SP TYPE: Surgical OTHR DR: Cristy Monet MD, Francis MD ORDERED: HE Stain/2, Gross Micro L4, ER, AZ, IHC, Add. immunos, IHC ER/AZ/Her2N/4, E-cadherin, Sophia-3, Ki-67, [id number] COMMENTS: Block A/1 H E/1 stained slide sent to [facility] for HER2 FISH on 11/07/24. As per the specimen requisition slip the specimen is collected at 0937 and placed in formalin at 0941. Gross Description (Continued) minor subset of patients with HER2 gene [...] and Progesterone Receptor Testing in Breast Cancer: [place] Society of Clinical Oncology/College of [place] Pathologists Guideline Update. Arch of Pathol Lab Med. 2020; 144(5): 545-563. Pee PRATT, Livier ALBRECHT, Katelin MAYERS, et al. Her2 testing in breast cancer: [place] Society of Clinical Oncology/College of [place] Pathologists clinical practice guideline focused update. Arch Pathol Lab Med. 2018; 142(11): 1193-3338. Arturo N, Akanksha P, et al. Adjuvant abemaciclib combined with endocrine therapy for high- risk early breast cancer: updated efficacy and Ki-67 analysis from the monarchE study. Sydnie Oncol. 2020;32(12):4325-1567. Livier MORTENSEN, [place] AGUILERA, et al. ASCO/CAP Guideline Recommendations for Immunohistochemical Testing of Estrogen and Progesterone Receptors in Breast Cancer. J Clin Oncol, 28 (16), 2010: 1135-7657. This case was reviewed intradepartmentally. Case discussed with Drew Graham and Roel by secure text by Dr. Diehl on 11/06/2024 at 12:07 pm. Special studies ordered and performed: Immunostains for ER, AZ, HER2, Ki 67, E-cadherin, and GATA3 on A1. CONTINUED ON NEXT PAGE ----- ------- Name: Delilah Sevilla Age/Sex: 69/F : 1955 Unit#: [id number] Attend Dr: Leo Sevilla MD Re11/05/24 Status: [facility] Disch: ----- ------- SPEC : [id number] RECD: 11/05/24 STATUS: PANKAJ [place] NUM: [id number] [place]: 11/05/[address] [facility] [address]: Elda Graham DO ENTERED: 11/05/24-1033 SP TYPE: Surgical OTHR DR: Cristy Monet MD, Francis MD ORDERED: HE Stain/2, Gross Micro L4, ER, AZ, IHC, Add. immunos, IHC ER/AZ/Her2N/4, E-cadherin, Sophia-3, Ki-67, [id number] COMMENTS: Block A/1 H E/1 stained slide sent to [facility] for HER2 FISH on 11/07/24. As per the specimen requisition slip the specimen is collected at 0937 and placed in formalin at 0941. IHC S/NG Disclaimer NOTE: Unless otherwise stated, all tissue is formalin-fixed and paraffin-embedded. Some or all of the immunohistochemical tests reported herein may have been developed and their performance characteristics determined by [facility]. They have not been cleared or approved by the U.S. Food and Drug Administration (FDA). However, the FDA has determined that such clearance or approval is not necessary. This laboratory is certified under the Clinical Laboratory Improvement Amendments of 1988 (CLIA) as qualified to perform high complexity clinical laboratory testing. Copies To: Cristy Monet MD [facility] [address] [place] [address] Leo Sevilla MD [facility] Sur[facility] [address] [place] [address] Elda Graham DO [address] [place] [address] ----- ------- Signed (signature on file) Glo Fazal 11/07/24 1035 ----- ------- END OF REPORT us Generic External Data Provider LAB BLOOD ORDERAB LES Final Result [facility] [address] [place] [phone] * US BREAST NDL CORE BIOPSY LT (11/05/2024 9:15 AM EDT) Anatomical Region Laterality Modality Abdomen Ultrasound 11/05/2024 9:15 AM EDT Narrative 11/05/2024 11:58 AM EDT [facility] [address] [place], [place] [address] Ultrasound Report Signed with Alta Patient: Delilah Sevilla MR#: [id number] 39 : 1955 Acct:[id number] Age/Sex: 69 / F ADM Date: 11/05/24 Loc: HO.MAMMO Attending Dr: Leo Sevilla MD Ordering Physician: Leo Sevilla MD Date of Service: 11/05/24 Procedure(s): US breast ndl core biopsy LT Accession Number(s): [id number] cc: Cristy Monet MD; Leo Sevilla MD Reason for Exam: N63.20 - Unspecified lump in the left breast, unspecified quadrant ADDENDUM ADDENDUM #1 ADDENDUM: Left breast 2:00 ultrasound-guided core needle biopsy: Invasive lobular carcinoma. These results are malignant and concordant. The patient is under the care of a breast surgeon Dr. Sevilla for excision and further management. Electronically signed by: Elda Graham DO 11/13/2024 08:52 AM EDT Addendum Dictated By: Elda Graham DO Addendum Signed By: <Electronically signed by Elda Graham DO in OV> 11/13/24 0852 Addendum Cosigned By: DD/ /27/914 TD/TT: 11/05/2405/27/999 PROCEDURE: ULTRASOUND-GUIDED LEFT BREAST BIOPSY CLINICAL INFORMATION: [...] 11/05/24 1155 DD/ 0915 TD/TT: 11/05/24 1000 Commercial Property Administrator: Procedure Note Donotuseinterpreter, Image - 11/13/2024 [facility] [address] [place] [address] Ultrasound Report Signed with Addenda Patient: Delilah Sevilla#: [id number] 39 : 8Acct:[id number] Age/Sex: 69 / FADM Date: 11/05/24 Loc: HO.MAMMO Attending Dr: Loe Sevilla MD Ordering Physician: Leo Sevilla MD Date of Service: 11/05/24 Procedure(s): US breast ndl core biopsy LT Accession Number(s): [id number] cc: Cristy Monet MD; Leo Sevilla MD Reason for Exam: N63.20 - Unspecified lump in the left breast,unspecified quadrant ADDENDUM ADDENDUM #1 ADDENDUM: Left breast 2:00 ultrasound-guided core needle biopsy: Invasive lobular carcinoma. These results are malignant and concordant. The patient is under the care of a breast surgeon Dr. Sevilla for excision and further management. Electronically signed by: Elda Graham DO 11/13/2024 08:52 AM EDT Addendum Dictated By: Elda Graham DO Addendum Signed By: <Electronically signed by DO Tootie in OV> 11/13/24851 Addendum Cosigned By: DD/ /27/914 TD/TT: 11/05/2405/27/999 PROCEDURE: ULTRASOUND-GUIDED LEFT BREAST BIOPSY CLINICAL INFORMATION: [...] Elda Graham DO 11/05/2024 11:55 AM EDT RP Dictated By: Elda Graham DO Signed By: <Electronically signed by Elda Graham DO in OV> 11/05/24 1155 DD/ 0915 TD/TT: 11/05/24 1000 Commercial Property Administrator: [facility] External Provider IMG US PROCEDURES Edited Result - Final * BI Mammogram Diagnostic Tomosynthesis Left (11/05/2024 8:47 AM EDT) Only the most recent of2 resultswithin the time period is included. Anatomical Region Laterality Modality Breast Left Mammography 11/05/2024 8:47 AM EDT Narrative 11/05/2024 11:58 AM EDT [address] [place] [address] Mammography Report Signed with Addenda Patient: Delilah Sevilla MR#: [id number] 39 : 1955 Acct:[id number] Age/Sex: 69 / F ADM Date: 11/05/24 Loc: HO.MAMMO Attending Dr: Leo Sevilla MD Ordering Physician: Leo Sevilla MD Results: Date of Service: 11/05/24 Follow Up: Procedure(s): MM tomosynthesis diagnostic LT Accession Number(s): [id number] cc: Cristy Monet MD; Leo Sevilla MD Reason For Exam: post us bx ADDENDUM ADDENDUM #1 ADDENDUM: Left breast 2:00 ultrasound-guided core needle biopsy: Invasive lobular carcinoma. These results are malignant and concordant. The patient is under the care of a breast surgeon Dr. Sevilla for excision and further management. Electronically signed by: Elda Graham DO 11/13/2024 08:52 AM EDT RP Addendum Dictated By: Elda Graham DO Addendum Signed By: <Electronically signed by Elda Graham DO in OV> 11/13/24 0852 Addendum Cosigned By: DD/ /27/846 TD/TT: 11/05/2405/27/999 PROCEDURE: ULTRASOUND-GUIDED LEFT BREAST BIOPSY CLINICAL INFORMATION: [...] Graham DO in OV> 11/05/24 1155 DD/ 6 TD/TT: 11/05/24999 Commercial Property Administrator: Procedure Note Donotuseinterpreter, Image - 11/17/2024 [facility] [place] [address] Mammography Report Signed with Addenda Patient: Ai Sevilla#: [id number] 39 : 8Acct:[id number] Age/Sex: 69 / FADM Date: 11/05/24 Loc: HO.MAMMO Attending Dr: Leo Sevilla MD Ordering Physician: Leo Sevillaesults: Date of Service: 11/05/24Follow Up: Procedure(s): MM tomosynthesis diagnostic LT Accession Number(s): [id number] cc: Cristy Monet MD; Leo Sevilla MD Reason For Exam: post us bx ADDENDUM ADDENDUM #1 ADDENDUM: Left breast 2:00 ultrasound-guided core needle biopsy: Invasive lobular carcinoma. These results are malignant and concordant. The patient is under the care of a breast surgeon Dr. Sevilla for excision and further management. Electronically signed by: Elda Graham DO 11/13/2024 08:52 AM EDT Addendum Dictated By: Elda Graham DO Addendum Signed By: <Electronically signed by DO Tootie in OV> 11/13/24 08 Addendum Cosigned By: DD/ /27/846 TD/TT: 11/05/2405/27/999 PROCEDURE: ULTRASOUND-GUIDED LEFT BREAST BIOPSY CLINICAL INFORMATION: [...] Elda Graham DO 11/05/2024 11:55 AM EDT RP Dictated By: Elda Graham DO Signed By: <Electronically signed by Elda Graham DO in OV> 11/05/24 1155 DD/ 0847 TD/TT: 11/05/24 1000 Commercial Property Administrator: [facility] External Provider IMG BI PROCEDURES Edited Result - Final * (ABNORMAL) Hemoglobin and Hematocrit (11/04/2024 10:10 AM EDT) Hemoglobin 12.2 12.0 - 16.0 g/dl [facility] Hematocrit 35.6(L) 37.0 - 47.0 % [facility] Blood Venous blood specimen / Unknown 11/04/2024 10:10 AM EDT 11/04/2024 11:03 AM EDT Cristy Monet MD LAB BLOOD ORDERABLES Fin al Result [facility] [address] [place] [phone] * Basic Metabolic Panel (11/04/2024 10:10 AM EDT) Sodium 135 135 - 145 mmol/L [facility] Potassium 4.3 3.3 - 5.1 mmol/L [facility] Chloride 102 96 - 108 mmol/L [facility] Carbon Dioxide 25 22 - 29 mmol/L [facility] Anion Gap 12 12 - 20 [facility] Urea Nitrogen (BUN) 13 9 - 16 mg/dL [facility] Creatinine, Serum 0.80 0.5 - 1.4 mg/dL [facility] Estimated Glomerular Filt Rate >60 [facility] Comment:Chronic Kidney Disea se: Estimated GFR < 60 mL/min/1.73y0Hbeaav Kidney Disease: Estimated GFR < 15 mL/min/1.73m2 Glucose 94 60 - 115 mg/dL [facility] Calcium 9.1 8.4 - 10.2 mg/dL [facility] Blood Venous blood specimen / Unknown 11/04/2024 10:10 AM EDT 11/04/2024 11:01 AM EDT us Cristy Monet MD LAB BLOOD ORDERABLES Fin al Result [facility] [address] [place] [address] [phone] * BI US Breast Limited Left (10/15/2024 1:22 PM EDT) Anatomical Region Laterality Modality Breast Left Ultrasound 10/15/2024 1:22 PM EDT Narrative 10/15/2024 2:17 PM EDT [facility] [address] [place] [address] Ultrasound Report Signed Patient: Delilah Sevilla MR#: [id number] 39 : 1955 Acct:[id number] Age/Sex: 69 / F ADM Date: 10/15/24 Loc: HO.MAMMO Attending Dr: Cristy Monet MD Ordering Physician: Cristy Monet MD Date of Service: 10/15/24 Procedure(s): US breast LT limited mamm only Accession Number(s): [id number] cc: Cristy Monet MD EXAMINATION: MM DIAGNOSTIC [...] 10/15/24 1414 DD/ 1322 TD/TT: 10/15/24 1358 Commercial Property Administrator: Procedure Note Donotuseinterpreter, Image - 10/16/2024 [facility] [address] [place], [place] [address] Ultrasound Report Signed Patient: Ai [place]#: [id number] 39 : 8Acct:[id number] Age/Sex: 69 / FADM Date: 10/15/24 Loc: HO.MAMMO Attending Dr: Cristy Monet MD Ordering Physician: Cristy Monet MD Date of Service: 10/15/24 Procedure(s): US breast LT limited mamm only Accession Number(s): [id number] cc: Cristy Monet MD EXAMINATION: MM DIAGNOSTIC [...] 10/15/24 1414 DD/ 1322 TD/TT: 10/15/24 1358 Commercial Property Administrator: us Cristy Monet MD IMG US PROCEDURES Final Result * US RENAL DOPPLER (10/01/2024 1:12 PM EDT) Anatomical Region Laterality Modality Abdomen Ultrasound 10/01/2024 1:12 PM EDT Narrative 10/01/2024 1:13 PM EDT [place] [address] Ultrasound Report Signed Patient: Delilah Sevilla MR#: [id number] 39 : 1955 Acct:[id number] Age/Sex: 68 / F ADM Date: 10/01/24 Loc: HO.US Attending Dr: Cristy Monet MD Ordering Physician: Cristy Monet MD Date of Service: 10/01/24 Procedure(s): US renal doppler Accession Number(s): [id number] cc: Cristy Monet MD CLINICAL HISTORY: resistent [...] in OV> 10/01/24 1313 DD/ 1312 TD/TT: 10/01/241311 Commercial Property Administrator: Procedure Note Donotuseinterpreter, Image - 10/01/[address] [address] Ultrasound Report Signed Patient: Ai Se[place]#: [id number] 39 : 8Acct:[id number] Age/Sex: 68 / FADM Date: 10/01/24 Loc: .US Attending Dr: Cristy Monet MD Ordering Physician: Cristy Monet MD Date of Service: 10/01/24 Procedure(s): US renal doppler Accession Number(s): [id number] cc: Cristy Monet MD CLINICAL HISTORY: resistent [...] in OV> 10/01/24 1313 DD/ 1312 TD/TT: 10/01/241311 Commercial Property Administrator: us Cristy Monet MD IMG US PROCEDURES Final Result * (ABNORMAL) Hm Colonoscopy (12/25/2023) Colonoscopy Abnormal( A) Normal [facility] Comment:TA + hyperplastic po lyps Cristy Monet MD HEALTH MAINTENANCE Final Result Performing Organization Address [facility] Co de Phone Number [facility] [address] [place] [address] [phone] * (ABNORMAL) Lipid Panel, Standard (12/19/2023 9:22 AM EDT) Triglycerides 79 <150 mg/dL [facility] Comment:Desirable Triglyceri de: less than 150 mg/dLBorderline High Triglyceride 150-199 mg/dLHigh Triglyceride: 200-499 mg/dLVery High Triglyceride: greater than or equal to 5OO mg/dL Cholesterol 224(H) <200 mg/dL [facility] Comment:Desirable Cholestero l: less than 200 mg/dLBorderline High Cholesterol: 200-239 mg/dLHigh Cholesterol: greater than 239 mg/dL LDL Cholesterol Calculated 117(H) <100 mg/dL [facility] Comment:Desirable LDL: less than 100 mg/dLNear Optimal/Above Optimal LDL: 110- 129 mg/dLBorderline High LDL: 130-159 mg/dLHigh LDL: 160-189 mg/dLVery High LDL: greater than or equal to 190 mg/dL HDL Cholesterol 92 >40 mg/dL [facility] Comment:Desirable HDL: great er than 40 mg/dL Note: This HDL assay may give artificially low results in patients with liver disease. 12/19/2023 9:22 AM EDT 12/19/2023 11:43 AM EDT Cristy Monet MD LAB BLOOD ORDERABLES Fin al Result Performing Organization Address [facility]/ZIP Co de Phone Number [facility] [address] [place] [address] [phone] * Hepatitis Panel, General (12/04/2023 9:36 AM EDT) Hepatitis A IgM Nonreactive Nonreactive [facility] Comment:IgM antibodies to MARTINES V not detected; does not exclude earlyacute or recovered HAV infection. ~Hepatitis B Surface Antibody REACTIVE Nonreactive [facility] Comment:REACTIVE: > 11.99 mI U/mL Hepatitis B Core Antibody Nonreactive Nonreactive [facility] Hepatitis C Antibody Nonreactive Nonreactive [facility] Comment:Antibodies to HCV no t detected; does not exclude early acuteHCV infection. Hepatitis B Surface Ag Negative Negative [facility] Blood 12/04/2023 9:36 AM EDT 12/04/2023 11:01 AM EDT Cristy Monet MD LAB BLOOD ORDERABLES Fin al Result [facility] [address] [place] [address] [phone] * (ABNORMAL) ThinPrep?? Imaging Pap Refl HPV mRNA(if ASCUS,ASC- H,LSIL,HSIL,TWILA)Refl Genotype (10/18/2023 10:43 AM EDT) Pathologist [facility] HPV nRNA E6/E7 Detected(A ) Not Detected [facility] Comment:Methodology: Transcr iption-Mediated AmplificationThis assay detects E6/E7 viral messenger RNA (mRNA) from 14high-risk HPV types (16,18,31,33,35,39,45,51,52,56,58,59,66,68).Cervical sources are required for HPV testing.If a vaginal source from a patient who has had atotal hysterectomy with removal of cervix wassubmitted, please contact the testing laboratoryfor alternative testing options.For additional information, please refer tohttp://education.ModusP/faq/EQG853r5(This link if provided for information/educational purposes only.)THIS TEST WAS PERFORMED AT:[facility] [place] [phone] MEDINA MD HPV 16,18/45 NOT DETECTED NOT DETECTED [facility] Comment:Methodology: Transcr iption Mediated AmplificationCervical sources are required for HPV testing.If a vaginal source from a patient who has had atotal hysterectomy with removal of cervix wassubmitted, please contact the testing laboratoryfor alternative testing options.THIS TEST WAS PERFORMED AT:[employer] [address] [phone] MEDINA MD SOURCE: SEE NOTE [facility] Comment:None given Report Status: [facility] Clinical Information: SEE NOTE [facility] Comment:None given LMP: SEE NOTE [facility] Comment:NONE GIVEN Prev. PAP: SEE NOTE [facility] Comment:NONE GIVEN Prev. BX: SEE NOTE [facility] Comment:NONE GIVEN Statement Of Adequacy: SEE NOTE [facility] Comment:Satisfactory for naheed luation.Endocervical/transformation zone componentpresent. General Categorization: SEE NOTE(A) [facility] Comment:Cytology Results: Ep ithelial Cell Abnormality Interpretation/Result: SEE NOTE(A) [facility] Comment:Atypical Squamous Ce lls of UndeterminedSignificance (ASC-US) Cytology Comment SEE NOTE [facility] Comment:This Pap test has be en evaluated with computerassisted technology. Hand Sewer: SEE NOTE [facility] Comment:DCR, CT(ASCP)CT scre ening location: [place] [address] Review Hand Sewer: [facility] Pathologist SEE NOTE [facility] Comment:Valerio Romero M.D./M.S .,Board Certified in Anatomic Pathology andBoard Eligible Cytopathology(electronic signature)Consulting PathologistStillman Infirmary Pathology[address] [place] [address] [phone] PAP Infection [facility] See Note SEE [facility] Comment:EXPLANATORY NOTE:The Pap is a screening test for cervical cancer. It isnot a diagnostic test and is subject to false negativeand false positive results. It is most reliable when asatisfactory sample, regularly obtained, is submittedwith relevant clinical findings and history, and whenthe Pap result is evaluated along with historic andcurrent clinical information.THIS TEST WAS PERFORMED AT:[facility] ANATOM[facility] PATHOLOGY[address] [place] [address]YDHJWLETICIA REYEZ MD 10/18/2023 10:4 3 AM EDT 10/18/2023 4:30 PM EDT Narrative [facility] - 10/31/2023 11:52 AM EDT SEE SCANNED RESULTS IN EMR Cristy Monet MD LAB CYTOLOGY ORDERABLES Final Result [facility] [address] [place] [phone] [phone] from Last 3 Months or Most Recently Relevant to Health Maintenance Insurance [facility] SNF OPTIONS (O D-SNP) [facility] STANDARD Care Teams Recreation Therapy Aides Teacher Relationship Specialty Start Date End Date Cristy Monet MD [address] [place] [address] PCP - General Family Medicine 12/12/19 Sung Rand, DaeD [address] [place] [address] Pharmacist Internal Medicine 05/27/24
--- OUTSIDE RECORDS SUMMARY | 2024-12-01 16:41 | XMS_ITS | Encounter Summary ---
Author Organization [employer] Address [address] [facility] 7t [place] [address] Care Team Providers Care Light Armored Vehicle Officer Name Role Phone Cristy Monet MD Primary Care Provider + Sung aRnd PharmD Unavailable [phone] Encounter Details Date Type Department Care Team ([facility] st Contact Info) Description 10/08/2024 Results Follow-Up [facility] [address] [place] [address] Cristy Monet MD [address] [place], [place] [phone] US RENAL DOPPLER Social History Tobacco Use [...] Info) Description 12/11/2024 11:00 AM EDT Telemedicine [facility] [address] [place] [address] Sung Rand, PharmD [address] [place] [address] 03/16/2025 11:00 AM EST Office Visit [facility] [address] [place] [address] [place] Colbert, OD [address] [place] [address] documented as of this encounter Visit Diagnoses Not on filedocumented in this encounter Care Teams Light Armored Vehicle Officer Relationship Specialty Start Date End Date Cristy Monet MD [address] [place] [address] PCP - General Family Medicine 12/12/19 Sung Rand, PharmD [address] [place] [address] Pharmacist Internal Medicine 05/27/24 documented as of this encounter
--- OUTSIDE RECORDS SUMMARY | 2024-12-01 16:41 | XMS_ITS | Encounter Summary ---
Author Organization [employer] Address [address] [facility] 7t [place] [address] Care Team Providers Care Synoptic Meteorologist Name Role Phone Cristy Monet MD Primary Care Provider + Sung Rand PharmD Unavailable [phone] Encounter Details Date Type Department Care Team ([facility] st Contact Info) Description 09/10/2023 Telephone [facility] [address] [place], [place] [phone] Cristy Monet MD [address] [place], [place] [phone] Social History Tobacco Use Types Packs/Day Years [...] Info) Description 12/11/2024 11:00 AM EDT Telemedicine [facility] [address] [place] [address] Sung Rand, Bill [address] [place] [address] 03/16/2025 11:00 AM EST Office Visit [facility] OPT[facility] [address] [place] [address] [place], [place], OD [address] [place] [address] documented as of this encounter Visit Diagnoses Not on filedocumented in this encounter Care Teams Synoptic Meteorologist Relationship Specialty Start Date End Date Cristy Monet MD [address] [place] [address] PCP - General Family Medicine 12/12/19 Sung Rand, DaeD [address] [place] [address] Pharmacist Internal Medicine 05/27/24 documented as of this encounter
--- OUTSIDE RECORDS SUMMARY | 2024-12-01 16:41 | XMS_ITS | Encounter Summary ---
Author Organization [employer] Address [address] [place] [address] 7t [place] [address] Care Team Providers Care Director Of Reimbursement Name Role Phone Crisyt Monet MD Primary Care Provider + Sung Rand PharmD Unavailable [phone] Encounter Details Date Type Department Care Team (Late Contact Info) Description 07/07/2022 Orders Only [facility] [address] [place] [address] Odilia Smiley LPN Social History Tobacco Use [...] Upcoming Encounters Date Type Department Care Team ([facility] Contact Info) Description 12/11/2024 11:00 AM EDT Telemedicine [facility] [address] [place] [address] Sung Rand, PharmD [address] [place] [address] 03/16/2025 11:00 AM EST Office Visit [facility] [address] [place] [address] [place], [place], OD [address] [place] [address] documented as of this encounter Procedures Procedure Name Priority Date/Time Associated Diagnosis Comments BI MAMMOGRAM SCREENING TOMOSYNTHESIS BILATERAL Routine 07/07/2022 1:05 PM EDT documented in this encounter Results * BI Mammogram Screening Tomosynthesis Bilateral (07/07/2022 1:05 PM EDT) Anatomical Region Laterality Modality Breast Bilateral Mammography 07/07/2022 1:05 PM EDT Narrative 07/10/2022 1:12 PM EDT [facility] [address] [place] [address] Mammography Report Signed Patient: Delilah Sevilla MR#: [id number] 39 : 1955 Acct:[id number] Age/Sex: 66 / F ADM Date: 07/07/22 Loc: HO.MAMMO Attending Dr: Cristy Monet MD Ordering Physician: Cristy Monet MD Results: 2Be nign Findings Date of Service: 07/07/22 Follow Up: 1 Year From Orig ina Mammogram Procedure(s): MM tomosynthesis screening BI Accession Number(s): [id number] cc: Cristy Monet MD EXAMINATION: MM SCREENING [...] in OV> 07/10/22 1309 DD/ 1305 TD/TT: Tipple Repairer: ACOSTA Procedure Note Donotuseinterpreter, Image - 08/31/2022 [facility] [address] [place], [place] [address] Mammography Report Signed Patient: Delilah SevillaMR#: [id number] 39 : 8Acct:[id number] Age/Sex: 66 / FADM Date: 07/07/22 Loc: HO.MAMMO Attending Dr: Cristy Monet MD Ordering Physician: Cristy Monet MDResults: 2Be nign Findings Date of Service: 07/07/22Follow Up: 1 Year From Orig ina Mammogram Procedure(s): MM tomosynthesis screening BI Accession Number(s): [id number] cc: Cristy Monet MD EXAMINATION: MM SCREENING [...] in OV> 07/10/22 1309 DD/ 1305 TD/TT: Tipple Repairer: ACOSTA [facility] External Provider IMG BI PROCEDURES Final Result documented in this encounter Visit Diagnoses Not on filedocumented in this encounter Care Teams Director Of Reimbursement Relationship Specialty Start Date End Date Cristy Monet MD [address] [place] [address] PCP - General Family Medicine 12/12/19 Sung Rand PharmD [address] [place] [address] Pharmacist Internal Medicine 05/27/24 documented as of this encounter
--- OUTSIDE RECORDS SUMMARY | 2024-12-01 16:41 | XMS_ITS | Encounter Summary ---
Author Organization [employer] Address [address] [facility] 7t [place] [address] Care Team Providers Care Talent Acquisition Manager Name Role Phone Cristy Monet MD Primary Care Provider + Sung Rand PharmD Unavailable [phone] Encounter Details Date Type Department Care Team (Late st Contact Info) Description 03/28/2022 Orders Only [facility] [address] [place] [address] Odilia Smiley LPN Social History Tobacco Use [...] Info) Description 12/11/2024 11:00 AM EDT Telemedicine [facility] [address] [place] [address] Sung Rand, PharmD [address] [place] [address] 03/16/2025 11:00 AM EST Office Visit [facility] OPTOMETRY [address] [place] [address] [place], [place], OD [address] [place] [address] documented as of this encounter Visit Diagnoses Not on filedocumented in this encounter Care Teams Talent Acquisition Manager Relationship Specialty Start Date End Date Cristy Monet MD [address] [place] [address] PCP - General Family Medicine 12/12/19 Sung Rand PharmD [address] [place] [address] Pharmacist Internal Medicine 05/27/24 documented as of this encounter
--- OUTSIDE RECORDS SUMMARY | 2024-12-01 16:41 | XMS_ITS | Encounter Summary ---
Author Organization [employer] Address [address] [facility] 7t [place] [address] Care Team Providers Care Heel Coverer Name Role Phone Cristy Monet MD Primary Care Provider + Sung Rand PharmD Unavailable [phone] Encounter Details Date Type Department Care Team ([facility] st Contact Info) Description 11/08/2024 Results Follow-Up [facility] [address] [place] [address] Cristy Monet MD [address] [place], [place] [phone] Hematoxylin and Eosin Stain Social History Tobacco [...] 12/11/2024 11:00 AM EDT Telemedicine [facility] [address] [place] [address] Sung Rand, PharmD [address] [place] [address] 03/16/2025 11:00 AM EST Office Visit [facility] [address] [place] [address] [place] Colbert, OD [address] [place] [address] documented as of this encounter Visit Diagnoses Not on filedocumented in this encounter Care Teams Heel Coverer Relationship Specialty Start Date End Date Cristy Monet MD [address] [place] [address] PCP - General Family Medicine 12/12/19 Sung Rand, DaeD [address] [place] [address] Pharmacist Internal Medicine 05/27/24 documented as of this encounter
--- OUTSIDE RECORDS SUMMARY | 2024-12-01 16:41 | XMS_ITS | Encounter Summary ---
Author Organization [employer] Address [address] [facility] 7t [place] [address] Care Team Providers Care Label Drier Name Role Phone Cristy Monet MD Primary Care Provider + Sung Rand PharmD Unavailable [phone] Encounter Details Date Type Department Care Team (Late st Contact Info) Description 06/09/2024 Orders Only [facility] [address] [place], [place] [phone] ProviderIda MD Social History Tobacco Use Types [...] Info) Description 12/11/2024 11:00 AM EDT Telemedicine [facility] MEDICINE [address] [place] [address] Sung Rand, DaeD [address] [place] [address] 03/16/2025 11:00 AM EST Office Visit [facility] OPTOMETRY [address] [place] [address] [place], [place], OD [address] [place] [address] documented as of this encounter Procedures Procedure Name Priority Date/Time Associated Diagnosis Comments BIOPSY CERVIX Routine 05/02/2024 11:47 AM EST documented in this encounter Results * Biopsy cervix (05/02/2024 11:47 AM EST) Historical Provider IN CLINIC/BEDSIDE ORDERAB LES Final Result documented in this encounter Visit Diagnoses Not on filedocumented in this encounter Care Teams Label Drier Relationship Specialty Start Date End Date Cristy Monet MD [address] [place] [phone] PCP - General Family Medicine 12/12/19 Sung Rand, PharmD [address] [place] [address] Pharmacist Internal Medicine 05/27/24 documented as of this encounter
--- OUTSIDE RECORDS SUMMARY | 2024-12-01 16:41 | XMS_ITS | Encounter Summary ---
Author Organization [employer] Address [address] [facility] [address] 7t [place] [address] Care Team Providers Care Law Firm Consultant Name Role Phone Cristy Monet MD Primary Care Provider + Sung Rand PharmD Unavailable [phone] Encounter Details Date Type Department Care Team (Late st Contact Info) Description 04/17/2024 Orders Only [facility] [address] [place], [place] [phone] ProviderIda MD Social History Tobacco Use Types [...] 12/11/2024 11:00 AM EDT Telemedicine [facility]INE [address] [place] [address] Sung Rand, PharmD [address] [place] [address] 03/16/2025 11:00 AM EST Office Visit [facility] OPTOMETRY [address] [place] [address] File[place], [place], OD [address] [place] [address] documented as of this encounter Procedures Procedure Name Priority Date/Time Associated Diagnosis Comments COLPOSCOPY Routine 04/14/2024 3:06 PM EST documented in this encounter Results * Colposcopy (04/14/2024 3:06 PM EST) Historical Provider IN CLINIC/BEDSIDE ORDERAB LES Final Result documented in this encounter Visit Diagnoses Not on filedocumented in this encounter Care Teams Law Firm Consultant Relationship Specialty Start Date End Date Cristy Monet MD [address] [place] [address] PCP - General Family Medicine 12/12/19 Sung Rand, PharmD [address] [place] [address] Pharmacist Internal Medicine 05/27/24 documented as of this encounter
--- OUTSIDE RECORDS SUMMARY | 2024-12-01 16:41 | XMS_ITS | Encounter Summary ---
Author Organization [employer] Address [address] [facility] 7t [place] [address] Care Team Providers Care Acute Specialist Name Role Phone Cristy Monet MD Primary Care Provider + Sung Rand PharmD Unavailable [phone] Encounter Details Date Type Department Care Team ([facility] Contact Info) Description 09/13/2022 Orders Only [facility] MEDICINE [address] [place] [phone] Cristy Monet MD [address] [place], [place] [phone] Hyperkalemia (Primary Dx); Hypercalcemia Social History Tobacco [...] Upcoming Encounters Date Type Department Care Team ([facility] Contact Info) Description 12/11/2024 11:00 AM EDT Telemedicine [facility] MED[facility] [address] [place] [phone] Sung Rand, PharmD [address] [place] [address] 03/16/2025 11:00 AM EST Office Visit [facility] OPTOMETRY [address] [place], [place] [phone] [place] trevino, OD [address] [place] [address] documented as of this encounter Procedures Procedure Name Priority Date/Time Associated Diagnosis Comments BASIC METABOLIC PANEL Routine 09/25/2022 8:41 AM EDT Hyperkalemia Hypercalcemia documented in this encounter Results * (ABNORMAL) Basic Metabolic Panel (09/25/2022 8:41 AM EDT) Sodium 138 135 - 145 mmol/L [facility] Potassium 5.0 3.3 - 5.1 mmol/L [facility] Chloride 102 96 - 108 mmol/L [facility] Carbon Dioxide 30(H) 22 - 29 mmol/L [facility] Anion Gap 11(L) 12 - 20 [facility] Urea Nitrogen (BUN) 15 9 - 16 mg/dL [facility] Creatinine, Serum 0.78 0.5 - 1.4 mg/dL [facility] Estimated Glomerular Filt Rate >60 [facility] Comment:NOTE: For -Am erican individuals, multiply the result by 1.210.Chronic Kidney Disease: Estimated GFR < 60 mL/min/1.59l2Tnsyjj Kidney Disease: Estimated GFR < 15 mL/min/1.73m2 Glucose 96 60 - 115 mg/dL [facility] Calcium 9.6 8.4 - 10.2 mg/dL [facility] Blood Venous blood specimen / Unknown 09/25/2022 8:41 AM EDT 09/25/2022 11:03 AM EDT us Cristy Monet MD LAB BLOOD ORDERABLES Fin al Result [facility] [address] [place] [address] [phone] documented in this encounter Visit Diagnoses Diagnosis Hyperkalemia- Primary Hyperpotassemia Hypercalcemia documented in this encounter Care Teams Acute Specialist Relationship Specialty Start Date End Date Cristy Monet MD [address] [place] [address] PCP - General Family Medicine 12/12/19 Sung Rand, DaeD [address] [place] [address] Pharmacist Internal Medicine 05/27/24 documented as of this encounter
== END 2024-12-01 15:44 | disposition home or self-care (01) ==
LOC: HO.HGS 14:47
PROVIDERS: PCP Internal Medicine; Visit Provider Surgery
DX: C50.919 Malignant neoplasm of unspecified site of unspecified female breast (principal)
CPT/HCPCS: 99024

== ENCOUNTER → 2024-12-01 14:46 | Outpatient (BNVA) | payer OTHER, SELFPAY | PROVIDERS: PCP Internal Medicine; Visit Provider Surgery | DX: Z98.890 Other specified postprocedural states (principal); D05.02 Lobular carcinoma in situ of left breast; Z90.12 Acquired absence of left breast and nipple | CPT/HCPCS: 99212 ==

== ENCOUNTER 2024-12-10 13:40 | Outpatient (AMB) | payer OTHER, SELFPAY ==
--- NOTE | 2024-12-10 13:43 | A.OFFVIS_ITS ---
Vital Signs 12/10/24 13:47 Height 5 ft 3 in Weight 119 lb 11.376 oz BMI 21.2 BP 125/69 Blood Pressure Location Rt brachial Position Sitting Pulse 66 Intake Visit Reasons: large painful lump on incision Intake Note: This patient presents for an assessment for large painful lump on surgical site. Pt c/o; painful lump, denies redness or hot to the touch. Mechanical Ordnance Assembler Required: Yes Mechanical Ordnance Assembler Language: Shading Painter Services: Mechanical Ordnance Assembler Present Mechanical Ordnance Assembler Name: Jorge Luis Information Interpreted: non-clinical & clinical Accompanied by: Self / Same As Patient Allergies No Known Allergies Allergy (Mild, Verified 12/10/24 13:48) HPI HPI large painful lump on incision: Details: She had undergone a mastectomy and sentinel biopsy of the left breast for an invasive lobular cancer last 11/17/2024. I had seen her in a postop visit 2 weeks ago. She was doing well then. She called the office because she says that she feels a lump underneath the incision. She says she had pain with this last week She denies any drainage. She denies any redness. [facility] Medical History Invasive lobular carcinoma of breast in female Family history of breast cancer Left breast mass Long-term use of Plaquenil Seronegative rheumatoid arthritis Positive TB test Encounter before starting medication Smoker unmotivated to quit Inflammatory arthritis Bilateral hand swelling Joint pain in both hands High blood cholesterol HTN (hypertension) Surgical History History of total mastectomy of left breast (~11/17/24) Hx of esophagogastroduodenoscopy Hx of colonoscopy Family History Sister Breast cancer Social History Household Members: None Household Members Other:: lives alone Housing: Apartment Are you a primary outdoor emergency care technician to a significant other at home: No Do you presently have visiting nurse or other home services: Yes (hand welt butter) Alcohol intake: current Alcohol intake frequency: holidays/special occasions only Alcohol type: beer Patient Tobacco Use Status: Current everyday Tobacco user Tobacco use type: Cigarette Cigarette Packs Per Day: 5 Cigarettes Per Day: 5 Second Hand Smoke Exposure: No Substance Use Type: Marijuana service: No Current occupational status: disabled Current occupational exposures/hazards: No Review of Systems Const Denies chills and Denies fever(s) Physical Exam Vital Signs: Last Vital Signs Pulse 66 12/10/24 13:47 BP 125/69 12/10/24 13:47 BMI result Body Mass Index 21.2 Const General: comfortable and no acute distress Chest Other: Mastectomy site well healed, on the lower part of the incision medially is note of a boggy area that seems to represent a seroma. There is no evidence of any infection and there is no cellulitis. Assessment & Plan Assessment & Plan (1) Invasive lobular carcinoma of breast in female: Code(s): C50.919 - Malignant neoplasm of unspecified site of unspecified female breast Category: Medical Plan: Status post mastectomy and sentinel biopsy. She has what appears to be a small seroma on the lower part of the incision medially. I explained to her that we do not need to drain it at this time. This should resorb on its own I told her that she can follow up in the office if she has worsening pain or swelling. She also has a scheduled follow up with me in about 2 months She is to continue to follow up with Oncology as well for her T1N0 ER/MT positive invasive lobular carcinoma. Coding Level of Care Code Global (16612) Diagnoses Invasive lobular carcinoma of breast in female C50.919
[2024-12-10 13:47] VITALS: BP 125/69; PULSE 66; BMI 21.2
== END 2024-12-10 14:00 | disposition home or self-care (01) ==
LOC: HO.HGS 13:41
PROVIDERS: PCP Internal Medicine; Visit Provider Surgery
DX: C50.919 Malignant neoplasm of unspecified site of unspecified female breast (principal)
CPT/HCPCS: 99024

== ENCOUNTER → 2024-12-10 13:40 | Outpatient (BNVA) | payer OTHER, SELFPAY | PROVIDERS: PCP Internal Medicine; Visit Provider Surgery | DX: Z98.890 Other specified postprocedural states (principal); Z90.12 Acquired absence of left breast and nipple | CPT/HCPCS: 99212 ==

== ENCOUNTER 2024-12-25 11:43 | Outpatient (REF) | payer OTHER, SELFPAY ==
--- NOTE | ~2024-12-25 | MM_ITS ---
EXAMINATION: DXA BONE DENSITY AXIAL HISTORY: Osteopenia TECHNIQUE: [facility] Dual energy absorptiometry (DEXA) of the lumbar spine, total left hip, and femoral neck was performed. COMPARISON: Comparison is made with the prior examination dated 08/11/2022. FINDINGS: The bone mineral density of the lumbar spine is 1.044 g/cm2, corresponding to a T-score of -1.1, and a Z-score of 0.8. This is indicative of osteopenia. This represents a BMD change of -4.7% compared to the prior exam. This is statistically significant. The bone mineral density of the left total hip is 0.793 g/cm2, corresponding to a T-score of -1.7, and a Z-score of -0.2. This is indicative of osteopenia. This represents a BMD change of -3.6% compared to the prior exam. This is not statistically significant. The bone mineral density of the left femoral neck is 0.765 g/cm2, corresponding to a T-score of -2.0, and a Z-score of -0.2. This is indicative of osteopenia. This represents a BMD change of -4.7% compared to the prior exam. FRACTURE RISK: The FRAX index suggests a ten year probability of major osteoporotic fracture of 6.2%, and of hip fracture 1.7%. MM/XR DEXA axial skeleton IMPRESSION: Based on bone mineral density, and according to World Health Organization (WHO) criteria, the diagnosis is consistent with osteopenia. Statistically, 68% of repeat scans fall within 1 SD (+/- 0.010 g/cm2 for AP spine L1-L4) and 1 SD (+/- 0.012 g/cm2 for femur total) FRAX is a trademark of the [employer] for Metabolic Bone Disease, a World Health Organization (WHO) Collaborating Center. Electronically signed by: Oliverio Lind MD 12/25/2024 01:08 PM EDT
--- OUTSIDE RECORDS SUMMARY | 2024-12-25 14:58 | XMS_ITS | Encounter Summary ---
Author Organization [employer] Address [address] [place] [address] Care Team Providers Care Director Of Community Education Name Role Phone Cristy Monet MD Primary Care Provider + Sung Rand PharmD Unavailable [phone] Encounter Details Date Type Department Care Team ([facility] st Contact Info) Description 11/08/2024 Results Follow-Up [facility] MEDICINE [address] [place] [address] Cristy Monet MD [address] [place], [place] [phone] Hematoxylin and Eosin Stain Social History Tobacco [...] Care Team (Late st Contact Info) Description 02/12/2025 11:30 AM EST Telemedicine [facility] MEDICINE [address] [place] [address] Sung Rand, PharmD [address] [place] [address] 03/16/2025 11:00 AM EST Office Visit [facility] OPTOMETRY [address] [place] [address] [place] Colbert, OD [address] [place] [address] documented as of this encounter Visit Diagnoses Not on filedocumented in this encounter Care Teams Director Of Community Education Relationship Specialty Start Date End Date Cristy Monet MD [address] [place], [place] [phone] PCP - General Family Medicine 12/12/19 Sung Rand, Bill [address] [place] [phone] Pharmacist Internal Medicine 05/27/24 documented as of this encounter
--- OUTSIDE RECORDS SUMMARY | 2024-12-25 14:58 | XMS_ITS | Encounter Summary ---
Author Organization [employer] Address [address] [place] [address] [address] [place] [address] Care Team Providers Care Drafter Civil (Cad) Name Role Phone Cristy Monet MD Primary Care Provider + Sung Rand PharmD Unavailable [phone] Encounter Details Date Type Department Care Team (Late st Contact Info) Description 07/07/2022 Orders Only [facility] MED[facility]INE [address] [place] [address] Odilia Smiley LPN Social History Tobacco Use [...] Department Care Team (Late Contact Info) Description 02/12/2025 11:30 AM EST Telemedicine [facility] MEDICINE [address] [place] [address] Sung Rand, PharmD [address] [place] [address] 03/16/2025 11:00 AM EST Office Visit [facility] OPTOMETRY [address] [place] [id number] [place], [place], OD [address] [place] [address] documented as of this encounter Procedures Procedure Name Priority Date/Time Associated Diagnosis Comments BI MAMMOGRAM SCREENING TOMOSYNTHESIS BILATERAL Routine 07/07/2022 1:05 PM EDT documented in this encounter Results * BI Mammogram Screening Tomosynthesis Bilateral (07/07/2022 1:05 PM EDT) Anatomical Region Laterality Modality Breast Bilateral Mammography 07/07/2022 1:05 PM EDT Narrative 07/10/2022 1:12 PM EDT [facility] [address] [place] [address] Mammography Report Signed Patient: Delilah Sevilla MR#: [id number] : 1955 Acct:[id number] Age/Sex: 66 / F ADM Date: 07/07/22 Loc: HO.MAMMO Attending Dr: Cristy Monet MD Ordering Physician: Cristy Monet MD Results: 2Be nign Findings Date of Service: 07/07/22 Follow Up: 1 Year From Orig ina Mammogram Procedure(s): MM tomosynthesis screening BI Accession Number(s): [id number] cc: Cristy Monet MD EXAMINATION: MM SCREENING [...] in OV> 07/10/22 1309 DD/ 1305 TD/TT: Security Dispatcher: ACOSTA Procedure Note Donotuseinterpreter, Image - 08/31/2022 [facility] [address] [place], [place] [address] Mammography Report Signed Patient: Delilah SevillaMR#: [id number] 39 : 8Acct:[id number] Age/Sex: 66 / FADM Date: 07/07/22 Loc: HO.MAMMO Attending Dr: Cristy Monet MD Ordering Physician: Cristy Monet MDResults: 2Be nign Findings Date of Service: 07/07/22Follow Up: 1 Year From Orig ina Mammogram Procedure(s): MM tomosynthesis screening BI Accession Number(s): [id number] cc: Cristy Monet MD EXAMINATION: MM SCREENING [...] in OV> 07/10/22 1309 DD/ 1305 TD/TT: Security Dispatcher: ACOTSA [facility] External Provider IMG BI PROCEDURES Final Result documented in this encounter Visit Diagnoses Not on filedocumented in this encounter Care Teams Drafter Civil (Cad) Relationship Specialty Start Date End Date Cristy Monet MD [address] [place] [id number] PCP - General Family Medicine 12/12/19 Sung Rand, Bill [address] [place] [address] Pharmacist Internal Medicine 05/27/24 documented as of this encounter
--- OUTSIDE RECORDS SUMMARY | 2024-12-25 14:58 | XMS_ITS | Clinical Summary ---
Author Organization [employer] Address [address] [facility] [address] [place] [address] Care Team Providers Care Social Services Assistant Name Role Phone Cristy Monet MD Primary Care Provider + Sung Rand PharmD Unavailable [phone] Allergies Active Allergy Reactions Criticality Noted Date [...] wheezing. 18 g 3 06/27/19 24 Active acetaminophen (Tylenol 8 Hour) 650 MG ER tablet Take 650 mg by mouth every 8 (eight) hours if needed for mild pain. Do not crush, chew, or split. Active pyridoxine (Vitamin B-6) 50 MG tablet [...] mouth Once per day. 30 tablet 11 07/15/19 25 026 Active cloNIDine (Catapres) 0.1 MG tabletIndicatio ns:Resistant hypertension TAKE 1 TABLET BY MOUTH nightly [...] MORNING 90 tablet 1 08/01/19 25 Active hydroCHLOROthia zide (HYDRODiuril) 25 MG tablet TAKE 1 TABLET BY MOUTH EVERY MORNING 90 tablet 1 08/01/19 25 Active ARIPiprazole (Abilify) 5 MG tablet Take 1 tablet (5 mg) by mouth with evening meal. 30 tablet 1 08/23/19 25 Active hydroxychloroqu ine (Plaquenil) 200 MG tablet TAKE 1 TABLET BY MOUTH ONCE DAILY SUNDAY THROUGH SUNDAY AND TAKE 1 TABLET TWICE DAILY SUNDAY AND SUNDAY Active omeprazole (PriLOSEC) [address] capsule TAKE 1 CAPSULE BY MOUTH TWICE DAILY IN THE MORNING AND IN THE EVENING BEFORE MEALS 60 capsule 1 11/12/19 25 Active Incruse Ellipta 62.5 MCG/ACT aerosol powder INHALE 1 PUFF BY MOUTH EVERY DAY AT THE SAME TIME RINSE MOUTH AFTER USING 30 each 11/12/19 25 Active Calcium Carb-Cholecalci ferol (Oyster Shell Calcium w/D) 500-5 MG-MCG tablet TAKE 1 TABLET BY MOUTH TWICE DAILY IN THE MORNING AND IN THE EVENING 180 tablet 3 12/04/19 25 Active Calcium Carb-Cholecalci ferol (Oyster Shell Calcium w/D) 500-5 MG-MCG tablet TAKE 1 TABLET BY MOUTH TWICE DAILY 180 tablet 3 11/30/19 24 025 Discontinued isoniazid (Nydrazid) 300 MG tablet Take 1 tablet by mouth Once per day. 12/31/19 24 025 Discontinued(M ed list cleanup (will not trigger notification to Pharmacy)) alirocumab (Praluent) 75 MG/ML injectionIndica tions:History of non-ST elevation myocardial infarction (NSTEMI) Inject 1 mL (75 mg) under the skin every 14 (fourteen) days. 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 Advised to optimal control risk factors as mentioned at previous visit. His CT scan of the brain is normal, not showing microvascular changes. She has a BUSINESS LIAISON OFFICER to help her with ADLs and remind [...] Stable managed with beta cayla Substance abuse ([facility]) 01/04/2024 Assessment & Plan (08/22/2024 10:58 AM [...] twice daily Will check regarding referral to pets salesperson due to resistant hypertension (8 was done [...] seems to be better controlled, seen by chalk molding machine operator Assessment & Plan (06/27/2023 10:39 AM EDT): - seen by rheumatology, reminded her to get labs done today and f/u with chalk molding machine operator Assessment & Plan (06/27/2023 9:57 [...] asymptomatic I will refer to rheumatology in [facility] to improve compliance w/ appointment Assessment & [...] Encounters Date Type Department Care Team Description 12/25/2024 Orders Only [facility] External Provider, [facility] 12/16/2024 Telephone [facility] MEDICINE [address] [place] [phone] Cristy Monet MD 12/16/2024 Telephone [facility] MEDICINE [address] [place] [phone] Cristy Monet MD 12/11/2024 11:00 AM EDT Telemedicine [facility] MEDICINE [address] [place] [phone] Sung Rand, PharmD Primary hypertension (Primary Dx) 12/02/2024 Refill [facility] MEDICINE [address] [place] [phone] Cristy Monet MD 11/19/2024 Telephone [facility] MEDICINE [address] [place] [phone] Cristy Monet MD fyi; med list 11/12/2024 Telephone [facility] MEDICINE [address] [place] [address] Cristy Monet MD 11/11/2024 Refill [facility] MEDICINE [address] [place] [address] Cristy Monet MD 11/10/2024 Telephone [facility] MEDICINE [address] [place] [address] Cristy Monet MD Chart Prep 11/08/2024 Results Follow-Up [facility] [address] [place] [address] Cristy Monet MD Hematoxylin and Eosin Stain 11/05/2024 Orders Only GENERIC EXTERNAL DATA DEPARTMENT Provider, Generic External Data 10/27/2024 Telephone [facility] [address] [place] [address] Sung Rand, PharmSymone 10/23/2024 11:30 AM EDT Telemedicine [facility] [address] [place] [address] Sung Rand, Bill Primary hypertension (Primary Dx) 10/15/2024 Orders Only [facility] [address] [place] [address] Cristy Monet MD 10/08/2024 Telephone [facility] [address] [place] [address] Cristy Monet MD Normal imaging letter 10/08/2024 Results Follow-Up [facility] [address] [place] [address] Cristy Monet MD US RENAL DOPPLER 09/25/2024 11:30 AM EDT Telemedicine [facility] [address] [place] [address] Sung Rand, Bill Primary hypertension (Primary Dx); History of non-ST elevation myocardial infarction (NSTEMI) from Last 3 Months Immunizations Immunization Administration [...] Sign Reading Time Taken Comments Blood Pressure 129/87 12/11/2024 11:12 AM EDT [employer] Home monitor (Televisit) Pulse 81 12/11/2024 11:12 AM EDT Temperature 36.2 C (97.1 F) [...] Info) Description 02/12/2025 11:30 AM EST Telemedicine [facility] MEDICINE [address] [place] [address] Sung Rand, PharmD [address] [place] [address] 03/16/2025 11:00 AM EST Office Visit [facility] OPTOMETRY [address] [place] [address] [place], [place], OD [address] [place] [address] Health Maintenance Due Date Last Done Comments [...] Procedure Name Priority Date/Time Associated Diagnosis Comments BD DEXA AXIAL Routine 12/25/2024 11:45 AM EDT NM SENTINEL NODE W IMAGING Routine 11/17/2024 [...] Recently Relevant to Health Maintenance Results * BD DEXA Axial (12/25/2024 11:45 AM EDT) Anatomical Region Laterality Modality Body Radiographic Yasmeen ging 12/25/2024 11:4 5 AM EDT [facility] 12/25/2024 1:11 PM EDT [facility] [address] [place], [place] [address] Mammography Report Signed Patient: Delilah Sevilla MR#: [id number] 39 : 1955 Acct:[id number] Age/Sex: 69 / F ADM Date: 12/25/24 Loc: HO.MAMMO Attending Dr: Virgilio Parkinson MD Ordering Physician: Virgilio Parkinson MD Results: Date of Service: 12/25/24 Follow Up: Procedure(s): XR DEXA axial skeleton Accession Number(s): [id number] cc: Cristy Monet MD; Virgilio Parkinson MD Reason For Exam: Osteopenia EXAMINATION: DXA BONE DENSITY AXIAL HISTORY: Osteopenia TECHNIQUE: Yooli Dual energy absorptiometry (DEXA) of the lumbar spine, total left hip, and femoral neck was performed. COMPARISON: Comparison is made with the prior examination dated 08/11/2022. FINDINGS: The bone mineral density of the lumbar spine is 1.044 g/cm2, corresponding to a T-score of -1.1, and a Z-score of 0.8. This is indicative of osteopenia. This represents a BMD change of -4.7% compared to the prior exam. This is statistically significant. The bone mineral density of the left total hip is 0.793 g/cm2, corresponding to a T-score of -1.7, and a Z-score of -0.2. This is indicative of osteopenia. This represents a BMD change of -3.6% compared to the prior exam. This is not statistically significant. The bone mineral density of the left femoral neck is 0.765 g/cm2, corresponding to a T-score of -2.0, and a Z-score of -0.2. This is indicative of osteopenia. This represents a BMD change of -4.7% compared to the prior exam. FRACTURE RISK: The FRAX index suggests a ten year probability of major osteoporotic fracture of 6.2%, and of hip fracture 1.7%. MM/XR DEXA axial skeleton IMPRESSION: Based on bone mineral density, and according to World Health Organization (WHO) criteria, the diagnosis is consistent with osteopenia. Statistically, 68% of repeat scans fall within 1 SD (+/- 0.010 g/cm2 for AP spine L1-L4) and 1 SD (+/- 0.012 g/cm2 for femur total) FRAX is a trademark of the [employer] [place] for Metabolic Bone Disease, a World Health Organization (WHO) Collaborating Center. Electronically signed by: Oliverio Lind MD 12/25/2024 01:08 PM EDT RP Dictated By: Oliverio Lind MD Signed By: <Electronically signed by Oliverio Lind MD in OV> 12/25/24 1308 DD/ 1145 TD/TT: 12/25/24 1204 Seed Core Operator: Procedure Note Donotuseinterpreter, Image - 12/25/2024 [facility] [address] [place] [address] Mammography Report Signed Patient: Ai Sevilla#: [id number] 39 : 8Acct:[id number] Age/Sex: 69 / FADM Date: 12/25/24 Loc: HO.MAMMO Attending Dr: Virgilio Parkinson MD Ordering Physician: Virgilio Parkinsonesults: Date of Service: 12/25/24Follow Up: Procedure(s): XR DEXA axial skeleton Accession Number(s): [id number] cc: Cristy Monet MD; Virgilio Parkinson MD Reason For Exam: Osteopenia EXAMINATION: DXA BONE DENSITY AXIAL HISTORY: Osteopenia TECHNIQUE: Yooli Dual energy absorptiometry (DEXA) of the lumbar spine, total left hip, and femoral neck was performed. COMPARISON: Comparison is made with the prior examination dated 08/11/2022. FINDINGS: The bone mineral density of the lumbar spine is 1.044 g/cm2, corresponding to a T-score of -1.1, and a Z-score of 0.8. This is indicative of osteopenia. This represents a BMD change of -4.7% compared to the prior exam. This is statistically significant. The bone mineral density of the left total hip is 0.793 g/cm2, corresponding to a T-score of -1.7, and a Z-score of -0.2. This is indicative of osteopenia. This represents a BMD change of -3.6% compared to the prior exam. This is not statistically significant. The bone mineral density of the left femoral neck is 0.765 g/cm2, corresponding to a T-score of -2.0, and a Z-score of -0.2. This is indicative of osteopenia. This represents a BMD change of -4.7% compared to the prior exam. FRACTURE RISK: The FRAX index suggests a ten year probability of major osteoporotic fracture of 6.2%, and of hip fracture 1.7%. MM/XR DEXA axial skeleton IMPRESSION: Based on bone mineral density, and according to World Health Organization (WHO) criteria, the diagnosis is consistent with osteopenia. Statistically, 68% of repeat scans fall within 1 SD (+/- 0.010 g/cm2 for AP spine L1-L4) and 1 SD (+/- 0.012 g/cm2 for femur total) FRAX is a trademark of the [employer] [place] for Metabolic Bone Disease, a World Health Organization (WHO) Collaborating Center. Electronically signed by: Oliverio Lind MD 12/25/2024 01:08 PM EDT Dictated By: Oliverio Lind MD Signed By: <Electronically signed by Oliverio Lind MD in OV> 12/25/24 1308 DD/ 1145 TD/TT: 12/25/24 1204 Seed Core Operator: [facility] External Provider IMG DXA PROCEDURES Edited Result - Final * NM SENTINEL NODE W IMAGING (11/17/2024 7:57 AM EDT) Anatomical Region Laterality Modality Nuclear Medicine 11/17/2024 7:57 AM EDT Narrative 11/17/2024 10:31 AM EDT [address] [address] Nuclear Medicine Report Signed Patient: Delilah Sevilla MR#: [id number] 39 : 1955 Acct:[id number] Age/Sex: 69 / F ADM Date: 11/17/24 Loc: HO.SSSA SSSA-[address]: Leo Sevilla MD Ordering Physician: Leo Sevilla MD Date of Service: 11/17/24 Procedure(s): NM sentinel node w imaging Accession Number(s): [id number] cc: Cristy Monet MD; Leo Sevilla MD [...] 11/17/24 1028 DD/ 0757 TD/TT: 11/17/24 0930 Seed Core Operator: [facility] Procedure Note Donotuseinterpreter, Image - 11/17/[address] [address] Nuclear Medicine Report Signed Patient: Ai Sevilla#: [id number] 39 : 8Acct:[id number] Age/Sex: 69 / FADM Date: 11/17/24 Loc: HO.SSSA SSSA-[address]: Leo Sevilla MD Ordering Physician: Leo Sevilla MD Date of Service: 11/17/24 Procedure(s): NM sentinel node w imaging Accession Number(s): [id number] cc: Cristy Monet MD; Leo Sevilla MD [...] 11/17/24 1028 DD/ 0757 TD/TT: 11/17/24 0930 Seed Core Operator: ELZBIETA [facility] External Provider IMG NM PROCEDURES Edited Result - Final * Hematoxylin and Eosin Stain (11/05/2024 9:37 AM EDT) 11/05/2024 9:37 AM EDT 11/05/2024 10:32 AM EDT [facility] - 11/19/2024 10:25 AM EDT ----- ------- Name: Delilah Sevilla Age/Sex: 69/F : 1955 Unit#: [id number] Attend Dr: Leo Sevilla MD Re11/05/24 Status: DEP REF Location: HO.MAMMO Disch: ----- ------- SPEC : [id number] RECD: 11/05/24 STATUS: PANKAJ [place] NUM: [id number] [place]: 11/05/[address] [facility] [address]: Elda Graham DO ENTERED: 11/05/24 SP TYPE: Surgical OTHR DR: Cristy Monet MD, Francis MD ORDERED: HE Stain/2, Gross Micro L4, ER, ID, IHC, Add. immunos, IHC ER/ID/Her2N/4, E-cadherin, Sophia-3, Ki-67, [id number] COMMENTS: Block A/1 H E/1 stained slide sent to [facility] for HER2 FISH on 11/07/24. As per the specimen requisition slip the specimen is collected at 0937 and placed in formalin at 0941. Addendum Addendum 1 Entered: 11/19/24-1024 (A): [id number] (ZeeWhere): Results: Negative Interpretation: Average HER2 signals/nucleus: 2.02 [...] section. Addendum Signed (signature on file) [place] 11/19/24 1025 ----- ------- Diagnosis Breast, left, 2:00, core biopsy: -Invasive lobular carcinoma, MSBR grade 2. Synoptic report Procedure: Core biopsy Specimen laterality: Left Histologic type: Invasive lobular carcinoma. Histologic grade (George/MSBR histologic score): 2 - Glandular/tubular differentiation: Score: 3 - Nuclear pleomorphism: Score: 2 CONTINUED ON NEXT PAGE ----- ------- Name: Delilah Sevilla Age/Sex: 69/F : 1955 Unit#: [id number] Attend Dr: Leo Sevilla MD Re11/05/24 Status: DEP REF Location: [facility] Disch: ----- ------- SPEC : [id number] RECD: 11/05/24 STATUS: PANKAJ [place] NUM: [id number] [place]: 11/05/[address] [facility] [address]: Elda Graham DO ENTERED: 11/05/24 SP TYPE: Surgical OTHR DR: Cristy Monet MD,Leo JEAN-BAPTISTE ORDERED: HE Stain/2, Gross Micro L4, ER, ID, IHC, Add. immunos, IHC ER/ID/Her2N/4, E-cadherin, Sophia-3, Ki-67, [id number] COMMENTS: Block A/1 H E/1 stained slide sent to [facility] for HER2 FISH on 11/07/24. As per [...] 20, 15%) -Controls (external and internal): Appropriate ZeeWhere HER2 FISH analysis pending; addendum to follow. [...] Delilah Sevilla Age/Sex: 69/F : 1955 Unit#: [id number] Attend Dr: Leo Sevilla MD Re11/05/24 Status: DEP REF Location: HO.MAMMO Disch: ----- ------- SPEC : [id number] RECD: 11/05/24 STATUS: PANKAJ RELes NUM: [id number] [place]: 11/05/[address]: Elda Graham DO ENTERED: 11/05/24 SP TYPE: Surgical OTHR DR: Cristy Monet MD, Francis MD ORDERED: HE Stain/2, Gross Micro L4, ER, ID, IHC, Add. immunos, IHC ER/ID/Her2N/4, E-cadherin, Sophia-3, Ki-67, [id number] COMMENTS: Block A/1 H E/1 stained slide [...] automated immunostain methods: Estrogen receptor: Clone SP1; Delton CONFIRM [facility] [place] DAB Progesterone receptor: Clone 1E2; Delton CONFIRM [facility] [place] DAB HER2: FDA-approved Delton PATHWAY anti-HER-2/robert (4B5) Monoclonal; [facility] [place] DAB Controls are performed and evaluated for [...] Delilah Sevilla Age/Sex: 69/F : 1955 Unit#: [id number] Attend Dr: Leo Sevilla MD Re11/05/24 Status: DEP REF Location: [facility] Disch: ----- ------- SPEC : [id number] RECD: 11/05/24 STATUS: PANKAJ [place] NUM: [id number] [place]: 11/05/[address]: Elda Graham DO ENTERED: 11/05/24 SP TYPE: Surgical OTHR DR: Cristy Monet MD, Francis MD ORDERED: HE Stain/2, Gross Micro L4, ER, ID, IHC, Add. immunos, IHC ER/ID/Her2N/4, E-cadherin, Sophia-3, Ki-67, [id number] COMMENTS: Block A/1 H E/1 stained slide sent to [facility] for HER2 FISH on 11/07/24. As per [...] clinical laboratory testing. References: Katelin MAYERS, Livier ME, et al. Estrogen and Progesterone Receptor Testing in Breast Cancer: [place] Society of Clinical Oncology/College of [place] Pathologists Guideline Update. Arch of Pathol Lab Med. 2020; 144(5): 545-563. Pee AC, Livier ALBRECHT, Katelin KH, et al. Her2 testing in breast cancer: [place] Society of Clinical Oncology/College of [place] Pathologists clinical practice guideline focused update. Arch Pathol Lab Med. 2018; 142(11): 2120-8924. Arturo N, Akanksha P, et al. Adjuvant abemaciclib combined with endocrine therapy for high- risk early breast cancer: updated efficacy and Ki-67 analysis from the [facility] study. Sydnie Oncol. 2020;32(12):9933-3101. Livier MORTENSEN, [place] DF, et al. ASCO/CAP Guideline Recommendations for Immunohistochemical Testing of Estrogen and Progesterone Receptors in Breast Cancer. J Clin Oncol, 28 (16), 2010: 0069-4566. This case was reviewed intradepartmentally. Case discussed with Drew Graham and Roel by secure text by Dr. Diehl on 11/06/2024 at 12:07 pm. Special studies ordered and performed: Immunostains for ER, ID, HER2, Ki 67, E-cadherin, and GATA3 on A1. CONTINUED ON NEXT PAGE ----- ------- Name: Delilah Sevilla Age/Sex: 69/F : 1955 Unit#: [id number] Attend Dr: Leo Sevilla MD Re11/05/24 Status: DEP REF Location: .MAMMO Disch: ----- ------- SPEC : [id number] RECD: 11/05/24 STATUS: PANKAJ [place] NUM: [id number] [place]: 11/05/[address] [facility] [address]: Elda Graham DO ENTERED: 11/05/24 SP TYPE: Surgical OTHR DR: Cristy Monet MD, Francis MD ORDERED: HE Stain/2, Gross Micro L4, ER, ID, IHC, Add. immunos, IHC ER/ID/Her2N/4, E-cadherin, Sophia-3, Ki-67, [id number] COMMENTS: Block A/1 H E/1 stained slide sent to [facility] for HER2 FISH on 11/07/24. As per the specimen requisition slip the specimen is collected at 0937 and placed in formalin at 0941. IHC S/NG Disclaimer NOTE: Unless otherwise stated, all tissue is formalin-fixed and paraffin-embedded. Some or all of the immunohistochemical tests reported herein may have been developed and their performance characteristics determined by [facility]. They have not been cleared or approved by the U.S. Food and Drug Administration (FDA). However, the FDA has determined that such clearance or approval is not necessary. This laboratory is certified under the Clinical Laboratory Improvement Amendments of 1988 (CLIA) as qualified to perform high complexity clinical laboratory testing. Copies To: Cristy Monet MD [address] [address] Leo Sevilla MD [facility] General Surgeons [address] [place] [address] Elda Graham DO [address] [place] [phone] ----- ------- Signed (signature on file) [place] 11/07/24 1035 ----- ------- END OF REPORT us Generic External Data Provider LAB BLOOD ORDERAB LES Final Result [facility] [address] [place] [phone] * US BREAST NDL CORE BIOPSY LT (11/05/2024 9:15 AM EDT) Anatomical Region Laterality Modality Abdomen Ultrasound 11/05/2024 9:15 AM EDT Narrative 11/05/2024 11:58 AM EDT [facility] [address] [place] [address] Ultrasound Report Signed with Addenda Patient: Delilah Sevilla MR#: [id number] 39 : 1955 Acct:[id number] Age/Sex: 69 / F ADM Date: 11/05/24 Loc: HO.MAMMO Attending Dr: Leo Sevilla MD Ordering Physician: Leo Sevilla MD Date of Service: 11/05/24 Procedure(s): US breast ndl core biopsy LT Accession Number(s): [id number] cc: Cristy Monet MD; Leo Sevilla MD [...] Graham DO in OV> 11/05/24 1155 DD/ 4 TD/TT: 11/05/24999 Seed Core Operator: Procedure Note Donotuseinterpreter, Image - 11/13/2024 [facility] [address] [place], [place] [address] Ultrasound Report Signed with Addenda Patient: Ai Sevilla#: [id number] 39 : 8Acct:[id number] Age/Sex: 69 / FADM Date: 11/05/24 Loc: HO.MAMMO Attending Dr: Leo Sevilla MD Ordering Physician: Leo Sevilla MD Date of Service: 11/05/24 Procedure(s): US breast ndl core biopsy LT Accession Number(s): [id number] cc: Cristy Monet MD; Leo Sevilla MD [...] signed by DO Tootie in OV> 11/13/24 0852 Addendum Cosigned By: [...] 11/05/24 1155 DD/ 0915 TD/TT: 11/05/24 1000 Seed Core Operator: [facility] External Provider IMG US PROCEDURES Edited Result - Final * BI Mammogram Diagnostic Tomosynthesis Left (11/05/2024 8:47 AM EDT) Only the most recent of2 resultswithin the time period is included. Anatomical Region Laterality Modality Breast Left Mammography 11/05/2024 8:47 AM EDT Narrative 11/05/2024 11:58 AM EDT [facility] [address] [place] [address] Mammography Report Signed with Alta Patient: Delilah Sevilla MR#: [id number] 39 : 1955 Acct:[id number] Age/Sex: 69 / F ADM Date: 11/05/24 Loc: HO.MAMMO Attending Dr: Leo Sevilla MD Ordering Physician: Leo Sevilla MD Results: Date of Service: 11/05/24 Follow Up: Procedure(s): MM tomosynthesis diagnostic LT Accession Number(s): [id number] cc: Cristy Monet MD; Leo Sevilla MD [...] signed by Elda Graham DO in OV> 11/13/24851 Addendum Cosigned By: DD/ /27/846 TD/TT: 11/05/2405/27/999 [...] in OV> 11/05/24 1155 DD/ 6 TD/TT: 11/05/24 1000 Seed Core Operator: Procedure Note Donotuseinterpreter, Image - 11/17/2024 [facility] [address] [place] [address] Mammography Report Signed with Addenda Patient: Delilah Sevilla#: [id number] 39 : 1955cct:[id number] Age/Sex: 69 / FADM Date: 11/05/24 Loc: HO.MAMMO Attending Dr: Leo Sevilla MD Ordering Physician: Leo Sevillaesults: Date of Service: 11/05/24Follow Up: Procedure(s): MM tomosynthesis diagnostic LT Accession Number(s): [id number] cc: Cristy Monet MD; Leo Sevilla MD [...] signed by DO Tootie in OV> 11/13/24 0852 Addendum Cosigned By: [...] Graham DO in OV> 11/05/24 1155 DD/ TD/TT: 11/05/24999 Seed Core Operator: [facility] External Provider IMG BI PROCEDURES Edited Result - Final * (ABNORMAL) Hemoglobin and Hematocrit (11/04/2024 10:10 AM EDT) Hemoglobin 12.2 12.0 - 16.0 g/dl [facility] Hematocrit 35.6(L) 37.0 - 47.0 % [facility] Blood Venous blood specimen / Unknown 11/04/2024 10:10 AM EDT 11/04/2024 11:03 AM EDT us Cristy Monet MD LAB BLOOD ORDERABLES Fin al Result Performing Organization Address City/[facility]/ZIP Co de Phone Number [facility] [address] [place] [phone] [phone] * Basic Metabolic Panel (11/04/2024 10:10 AM EDT) Sodium 135 135 - 145 mmol/L [facility] Potassium 4.3 3.3 - 5.1 mmol/L [facility] Chloride 102 96 - 108 mmol/L [facility] Carbon Dioxide 25 22 - 29 mmol/L [facility] Anion Gap 12 12 - 20 [facility] Urea Nitrogen (BUN) 13 9 - 16 mg/dL [facility] Creatinine, Serum 0.80 0.5 - 1.4 mg/dL [facility] Estimated Glomerular Filt Rate >60 [facility] Comment:Chronic Kidney Disea se: Estimated GFR < 60 mL/min/1.10g8Luytan Kidney Disease: Estimated GFR < 15 mL/min/1.73m2 Glucose 94 60 - 115 mg/dL [facility] Calcium 9.1 8.4 - 10.2 mg/dL [facility] Blood Venous blood specimen / Unknown 11/04/2024 10:10 AM EDT 11/04/2024 11:01 AM EDT us Cristy Monet MD LAB BLOOD ORDERABLES Fin al Result Performing Organization Address City/[facility]/ZIP Co de Phone Number [facility] [address] [place] [address] [phone] * BI US Breast Limited Left (10/15/2024 1:22 PM EDT) Anatomical Region Laterality Modality Breast Left Ultrasound 10/15/2024 1:22 PM EDT Narrative 10/15/2024 2:17 PM EDT [facility] [address] [place], [place] [address] Ultrasound Report Signed Patient: Delilah Sevilla MR#: [id number] 39 : 1955 Acct:[id number] Age/Sex: 69 / F ADM Date: 10/15/24 Loc: HO.MAMMO Attending Dr: Cristy Monet MD Ordering Physician: Cristy Monet MD Date of Service: 10/15/24 Procedure(s): US breast LT limited mamm only Accession Number(s): [id number] cc: Cristy Monet MD EXAMINATION: MM DIAGNOSTIC [...] 10/15/24 1414 DD/ 1322 TD/TT: 10/15/24 1358 Seed Core Operator: Procedure Note Donotuseinterpreter, Image - 10/16/2024 [facility] [address] [place] [address] Ultrasound Report Signed Patient: Ai Sevilla#: [id number] 39 : 8Acct:[id number] Age/Sex: 69 / FADM Date: 10/15/24 Loc: HO.MAMMO Attending Dr: Cristy Monet MD Ordering Physician: Cristy Monet MD Date of Service: 10/15/24 Procedure(s): US breast LT limited mamm only Accession Number(s): [id number] cc: Cristy Monet MD EXAMINATION: MM DIAGNOSTIC [...] 10/15/24 1414 DD/ 1322 TD/TT: 10/15/24 1358 Seed Core Operator: us Cristy Monet MD IMG US PROCEDURES Final Result * US RENAL DOPPLER (10/01/2024 1:12 PM EDT) Anatomical Region Laterality Modality Abdomen Ultrasound 10/01/2024 1:12 PM EDT Narrative 10/01/2024 1:13 PM EDT [address] [address] Ultrasound Report Signed Patient: Delilah Sevilla MR#: [id number] 39 : 1955 Acct:[id number] Age/Sex: 68 / F ADM Date: 10/01/24 Loc: HO.US Attending Dr: Cristy Monet MD Ordering Physician: Cristy Monet MD Date of Service: 10/01/24 Procedure(s): US renal doppler Accession Number(s): [id number] cc: Cristy Monet MD CLINICAL HISTORY: resistent [...] 10/01/24 1313 DD/ 1312 TD/TT: 10/01/24 1312 Seed Core Operator: Procedure Note Donotuseinterpreter, Image - 10/01/2024 [place] [address] Ultrasound Report Signed Patient: Ai Sevilla#: [id number] 39 : 1955cct:[id number] Age/Sex: 68 / FADM Date: 10/01/24 Loc: .US Attending Dr: Cristy Monet MD Ordering Physician: Cristy Monet MD Date of Service: 10/01/24 Procedure(s): US renal doppler Accession Number(s): [id number] cc: Cristy Monet MD CLINICAL HISTORY: resistent [...] 10/01/24 1313 DD/ 1312 TD/TT: 10/01/24 1312 Seed Core Operator: us Cristy Monet MD IMG US PROCEDURES Final Result * (ABNORMAL) Hm Colonoscopy (12/25/2023) Colonoscopy Abnormal( A) Normal [facility] Comment:TA + hyperplastic po lyps us Cristy Monet MD HEALTH MAINTENANCE Final Result [facility] [address] [place] [phone] * (ABNORMAL) Lipid Panel, Standard (12/19/2023 9:22 AM EDT) Triglycerides 79 <150 mg/dL [facility] Comment:Desirable Triglyceri de: less than 150 mg/dLBorderline High Triglyceride 150-199 mg/dLHigh Triglyceride: 200-499 mg/dLVery High Triglyceride: greater than or equal to 5OO mg/dL Cholesterol 224(H) <200 mg/dL [facility] Comment:Desirable Cholestero l: less than 200 mg/dLBorderline High Cholesterol: 200-239 mg/dLHigh Cholesterol: greater than 239 mg/dL LDL Cholesterol Calculated 117(H) <100 mg/dL [facility] Comment:Desirable LDL: less than 100 mg/dLNear Optimal/Above Optimal LDL: 110- 129 mg/dLBorderline High LDL: 130-159 mg/dLHigh LDL: 160-189 mg/dLVery High LDL: greater than or equal to 190 mg/dL HDL Cholesterol 92 >40 mg/dL [facility] Comment:Desirable HDL: great er than 40 mg/dL Note: This HDL assay may give artificially low results in patients with liver disease. 12/19/2023 9:2 2 AM EDT 12/19/2023 11:43 AM EDT Cristy Monet MD LAB BLOOD ORDERABLES Fin al Result Performing Organization Address [facility] Co de Phone Number [facility] [address] [place] [address] [phone] * Hepatitis Panel, General (12/04/2023 9:36 AM EDT) Hepatitis A IgM Nonreactive Nonreactive [facility] Comment:IgM antibodies to MARTINES V not detected; does not exclude earlyacute or recovered HAV infection. ~Hepatitis B Surface Antibody REACTIVE Nonreactive [facility] Comment:REACTIVE: > 11.99 mI U/mL Hepatitis B Core Antibody Nonreactive Nonreactive [facility] Hepatitis C Antibody Nonreactive Nonreactive [facility] Comment:Antibodies to HCV no t detected; does not exclude early acuteHCV infection. Hepatitis B Surface Ag Negative Negative [facility] Blood 12/04/2023 9:36 AM EDT 12/04/2023 11:01 AM EDT Cristy Monet MD LAB BLOOD ORDERABLES Fin al Result Performing Organization Address [facility] de Phone Number [facility] [address] [place] [phone] * (ABNORMAL) ThinPrep?? Imaging Pap Refl HPV mRNA(if ASCUS,ASC- H,LSIL,HSIL,TWILA)Refl Genotype (10/18/2023 10:43 AM EDT) HPV nRNA E6/E7 Detected(A ) Not Detected [facility] Comment:Methodology: Transcr iption-Mediated AmplificationThis assay detects E6/E7 viral messenger RNA (mRNA) from 14high-risk HPV types (16,18,31,33,35,39,45,51,52,56,58,59,66,68).Cervical sources are required for HPV testing.If a vaginal source from a patient who has had atotal hysterectomy with removal of cervix wassubmitted, please contact the testing laboratoryfor alternative testing options.For additional information, please refer tohttp://education.[employer]/faq/VBB945w2(This link if provided for information/educational purposes only.)THIS TEST WAS PERFORMED AT:[employer] [address] [phone] MEDINA MD HPV 16,18/45 NOT DETECTED NOT DETECTED [facility] Comment:Methodology: Transcr iption Mediated AmplificationCervical sources are required for HPV testing.If a vaginal source from a patient who has had atotal hysterectomy with removal of cervix wassubmitted, please contact the testing laboratoryfor alternative testing options.THIS TEST WAS PERFORMED AT:[employer] [address] [phone] MEDINA MD SOURCE: SEE NOTE [facility] Comment:None given Report Status: TNP [facility] Clinical Information: SEE NOTE [facility] Comment:None given LMP: SEE NOTE [facility] Comment:NONE GIVEN Prev. PAP: SEE NOTE [facility] Comment:NONE GIVEN Prev. BX: SEE NOTE [facility] Comment:NONE GIVEN Statement Of Adequacy: SEE NOTE [facility] Comment:Satisfactory for naheed luation.Endocervical/transformation zone componentpresent. General Categorization: SEE NOTE(A) [facility] Comment:Cytology Results: Ep ithelial Cell Abnormality Interpretation/Result: SEE NOTE(A) [facility] Comment:Atypical Squamous Ce lls of UndeterminedSignificance (ASC-US) Cytology Comment SEE NOTE [facility] Comment:This Pap test has be en evaluated with computerassisted technology. Linen Room Custodian: SEE NOTE [facility] Comment:DCR, CT(ASCP)CT scre ening location: [place] [address] Review Linen Room Custodian: [facility] Pathologist SEE NOTE [facility] Comment:Valerio Romero M.D./Jose Molina,Board Certified in Anatomic Pathology andBoard Eligible Cytopathology(electronic signature)Consulting PathologistBellevue Hospital Pathology[address] [place] [address] [phone] PAP Infection [facility] See Note SEE NOTE [facility] Comment:EXPLANATORY NOTE:The Pap is a screening test for cervical cancer. It isnot a diagnostic test and is subject to false negativeand false positive results. It is most reliable when asatisfactory sample, regularly obtained, is submittedwith relevant clinical findings and history, and whenthe Pap result is evaluated along with historic andcurrent clinical information.THIS TEST WAS PERFORMED AT:[facility]-[address] AN[address] PATH[address] [place] [phone] REYEZ MD 10/18/2023 10:4 3 AM EDT 10/18/2023 4:30 PM EDT Narrative [facility] - 10/31/2023 11:52 AM EDT SEE SCANNED RESULTS IN EMR us Cristy Monet MD LAB CYTOLOGY ORDERABLES Final Result [facility] [address] [place] [phone] [phone] from Last 3 Months or Most Recently Relevant to Health Maintenance Insurance [facility] OPTIONS (HMO D-SNP) [facility] STANDARD Care Teams Social Services Assistant Relationship Specialty Start Date End Date Cristy Monet MD [address] [place] [address] PCP - General Family Medicine 12/12/19 Sung Rand, DaeD [address] [place] [address] Pharmacist Internal Medicine 05/27/24
--- OUTSIDE RECORDS SUMMARY | 2024-12-25 14:58 | XMS_ITS | Encounter Summary ---
Author Organization [employer] Address [address] [facility] 7t [place] [address] Care Team Providers Care Veneer Measurer Name Role Phone Cristy Monet MD Primary Care Provider + Sung Rand PharmD Unavailable [phone] Encounter Details Date Type Department Care Team (Late Contact Info) Description 09/13/2022 Orders Only [facility] [address] [place], [place] [phone] Cristy Monet MD [address] [place], [place] [phone] Hyperkalemia (Primary Dx); Hypercalcemia Social History Tobacco [...] Upcoming Encounters Date Type Department Care Team ([facility] Contact Info) Description 02/12/2025 11:30 AM EST Telemedicine [facility] [address] [place], [place] [phone] Sung Rand, PharmD [address] [place] [address] 03/16/2025 11:00 AM EST Office Visit [facility] [address] [place], [place] [phone] Filemon, [place], OD [address] [place] [address] documented as of this encounter Procedures Procedure Name Priority Date/Time Associated Diagnosis Comments BASIC METABOLIC PANEL Routine 09/25/2022 8:41 AM EDT Hyperkalemia Hypercalcemia documented in this encounter Results * (ABNORMAL) Basic Metabolic Panel (09/25/2022 8:41 AM EDT) Sodium 138 135 - 145 mmol/L [facility] Potassium 5.0 3.3 - 5.1 mmol/L [facility] Chloride 102 96 - 108 mmol/L [facility] Carbon Dioxide 30(H) 22 - 29 mmol/L [facility] Anion Gap 11(L) 12 - 20 [facility] Urea Nitrogen (BUN) 15 9 - 16 mg/dL [facility] Creatinine, Serum 0.78 0.5 - 1.4 mg/dL [facility] Estimated Glomerular Filt Rate >60 [facility] Comment:NOTE: For -Am erican individuals, multiply the result by 1.210.Chronic Kidney Disease: Estimated GFR < 60 mL/min/1.75o0Eybken Kidney Disease: Estimated GFR < 15 mL/min/1.73m2 Glucose 96 60 - 115 mg/dL [facility] Calcium 9.6 8.4 - 10.2 mg/dL [facility] Blood Venous blood specimen / Unknown 09/25/2022 8:41 AM EDT 09/25/2022 11:03 AM EDT us Cristy Monet MD LAB BLOOD ORDERABLES Fin al Result [facility] [address] [place] [phone] [phone] documented in this encounter Visit Diagnoses Diagnosis Hyperkalemia- Primary Hyperpotassemia Hypercalcemia documented in this encounter Care Teams Veneer Measurer Relationship Specialty Start Date End Date Cristy Monet MD [address] [place] [address] PCP - General Family Medicine 12/12/19 Sung Rand, Bill [address] [place] [address] Pharmacist Internal Medicine 05/27/24 documented as of this encounter
--- OUTSIDE RECORDS SUMMARY | 2024-12-25 14:58 | XMS_ITS | Encounter Summary ---
Author Organization [employer] Address [address] [facility] [address] 7t [place] [address] Care Team Providers Care Post Hole Digger Name Role Phone Cristy Monet MD Primary Care Provider + Sung Rand PharmD Unavailable [phone] Encounter Details Date Type Department Care Team (Late st Contact Info) Description 04/17/2024 Orders Only [facility] [address] [place], [place] [phone] ProviderIda MD Social History Tobacco Use Types [...] Info) Description 02/12/2025 11:30 AM EST Telemedicine [facility] [address] [place] [address] Sung Rand, Bill [address] [place] [address] 03/16/2025 11:00 AM EST Office Visit [facility] [address] [place] [address] Filemon, [place], OD 230 [place] [address] documented as of this encounter Procedures Procedure Name Priority Date/Time Associated Diagnosis Comments COLPOSCOPY Routine 04/14/2024 3:06 PM EST documented in this encounter Results * Colposcopy (04/14/2024 3:06 PM EST) us Historical Provider IN CLINIC/BEDSIDE ORDERAB LES Final Result documented in this encounter Visit Diagnoses Not on filedocumented in this encounter Care Teams Post Hole Digger Relationship Specialty Start Date End Date Cristy Monet MD [address] [place] [address] PCP - General Family Medicine 12/12/19 Sung Rand, PharmSymone [address] [place] [phone] Pharmacist Internal Medicine 05/27/24 documented as of this encounter
--- OUTSIDE RECORDS SUMMARY | 2024-12-25 14:58 | XMS_ITS | Encounter Summary ---
Author Organization [employer] Address [address] [facility] 7t [place] [address] Care Team Providers Care Implant Coordinator Name Role Phone Cristy Monet MD Primary Care Provider + Sung Rand PharmD Unavailable [phone] Encounter Details Date Type Department Care Team (Late st Contact Info) Description 06/09/2024 Orders Only [facility] [address] [place], [place] [phone] ProviderIda MD Social History Tobacco Use Types [...] Info) Description 02/12/2025 11:30 AM EST Telemedicine [facility] [address] [place] [address] Sung Rand, DaeD 230 [place] [address] 03/16/2025 11:00 AM EST Office Visit [facility] OPT[facility] [address] [place] [address] Filemon, [place], OD [address] [place] [address] documented as of this encounter Procedures Procedure Name Priority Date/Time Associated Diagnosis Comments BIOPSY CERVIX Routine 05/02/2024 11:47 AM EST documented in this encounter Results * Biopsy cervix (05/02/2024 11:47 AM EST) Historical Provider IN CLINIC/BEDSIDE ORDERAB LES Final Result documented in this encounter Visit Diagnoses Not on filedocumented in this encounter Care Teams Implant Coordinator Relationship Specialty Start Date End Date Cristy Monet MD [address] [place] [address] PCP - General Family Medicine 12/12/19 Sung Rand, PharmD [address] [place] [address] Pharmacist Internal Medicine 05/27/24 documented as of this encounter
--- OUTSIDE RECORDS SUMMARY | 2024-12-25 14:58 | XMS_ITS | Encounter Summary ---
Author Organization [employer] Address [address] [facility] [address] 7t [place] [address] Care Team Providers Care Assistant Professor Surgical Technology Name Role Phone Cristy Monet MD Primary Care Provider + Sung Rand PharmD Unavailable [phone] Reason for Visit * Reason Comments Med Refill Encounter Details Date Type Department Care Team ([facility] st Contact Info) Description 02/03/2024 Refill [facility] [address] [place], [place] [phone] Niru Oakes MD 230 [place] [address] Resistant hypertension Social History Tobacco Use Types [...] Info) Description 02/12/2025 11:30 AM EST Telemedicine [facility] [address] [place] [address] Sung Rand, PharmD [address] [place] [address] 03/16/2025 11:00 AM EST Office Visit [facility] [address] [place] [address] Filemon, [place], OD [address] [place] [address] documented as of this encounter Visit Diagnoses Diagnosis Resistant hypertension documented in this encounter Care Teams Assistant Professor Surgical Technology Relationship Specialty Start Date End Date Cristy Monet MD [address] [place] [address] PCP - General Family Medicine 12/12/19 Sung Rand, PharmD [address] [place] [phone] Pharmacist Internal Medicine 05/27/24 documented as of this encounter
--- OUTSIDE RECORDS SUMMARY | 2024-12-25 14:58 | XMS_ITS | Encounter Summary ---
Author Organization [employer] Address [address] [facility] 7[address] [place] [address] Care Team Providers Care Wind Turbine Machinist Name Role Phone Cristy Monet MD Primary Care Provider + Sung Rand PharmD Unavailable [phone] Encounter Details Date Type Department Care Team (Late st Contact Info) Description 03/28/2022 Orders Only [facility] [address] [place] [address] Odilia Smiley LPN Social History Tobacco Use [...] Info) Description 02/12/2025 11:30 AM EST Telemedicine [facility] [address] [place] [address] Sung Rand, PharmD [address] [place] [address] 03/16/2025 11:00 AM EST Office Visit [facility] [address] [place] [address] Filemon, [place], OD [address] [place] [address] documented as of this encounter Visit Diagnoses Not on filedocumented in this encounter Care Teams Wind Turbine Machinist Relationship Specialty Start Date End Date Cristy Monet MD [address] [place], [place] [phone] PCP - General Family Medicine 12/12/19 Sung Rand PharmD [address] [place] [address] Pharmacist Internal Medicine 05/27/24 documented as of this encounter
--- OUTSIDE RECORDS SUMMARY | 2024-12-25 14:58 | XMS_ITS | Encounter Summary ---
Author Organization [employer] Address 75 [facility] 7t [place] [address] Care Team Providers Care Quirk Sander Name Role Phone Cristy Monet MD Primary Care Provider + Sung Rand PharmD Unavailable [phone] Reason for Visit * Reason Comments Med Refill Encounter Details Date Type Department Care Team ([facility] st Contact Info) Description 01/14/2024 Refill [facility] [address] [place], [place] [phone] Cristy Monet MD [address] [place], [place] [phone] Social History Tobacco Use Types Packs/Day Years [...] Info) Description 02/12/2025 11:30 AM EST Telemedicine [facility] [address] [place] [address] Sung Rand, PharmSymone 230 [place] [address] 03/16/2025 11:00 AM EST Office Visit [facility] [address] [place], [place] [phone] [place], OD 230 [place] [address] documented as of this encounter Visit Diagnoses Not on filedocumented in this encounter Care Teams Quirk Sander Relationship Specialty Start Date End Date Cristy Monet MD [address] [place] [phone] PCP - General Family Medicine 12/12/19 Sung Rand, PharmD [address] [place] [address] [phone] Pharmacist Internal Medicine 05/27/24 documented as of this encounter
--- OUTSIDE RECORDS SUMMARY | 2024-12-25 14:58 | XMS_ITS | Encounter Summary ---
Author Organization [employer] Address [address] [facility] [address] 7[address] [place] [address] Care Team Providers Care Fulfillment Representative Name Role Phone Cristy Monet MD Primary Care Provider + Sung Rand PharmD Unavailable [phone] Encounter Details Date Type Department Care Team (Late st Contact Info) Description 12/25/2024 Orders Only [facility] External Provider, [facility] Social History Tobacco Use Types Packs/Day Years [...] Info) Description 02/12/2025 11:30 AM EST Telemedicine [facility] 230 [place] [address] Sung Rand, PharmD [address] [place] [address] 03/16/2025 11:00 AM EST Office Visit [facility] OPTOMETRY [address] [place] [address] Filemon, [place], OD 230 [place] [address] documented as of this encounter Procedures Procedure Name Priority Date/Time Associated Diagnosis Comments BD DEXA AXIAL Routine 12/25/2024 11:45 AM EDT documented in this encounter Results * BD DEXA Axial (12/25/2024 11:45 AM EDT) Anatomical Region Laterality Modality Body Radiographic Yasmeen ging 12/25/2024 11:4 5 AM EDT Narrative 12/25/2024 1:11 PM EDT [facility] [address] [place] [address] Mammography Report Signed Patient: Delilah Sevilla MR#: [id number] 39 : 1955 Acct:[id number] Age/Sex: 69 / F ADM Date: 12/25/24 Loc: HO.MAMMO Attending Dr: Virgilio Parkinson MD Ordering Physician: Virgilio Parkinson MD Results: Date of Service: 12/25/24 Follow Up: Procedure(s): XR DEXA axial skeleton Accession Number(s): [id number] cc: Cristy Monet MD; Virgilio Parkinson MD Reason For Exam: Osteopenia EXAMINATION: DXA BONE DENSITY AXIAL HISTORY: Osteopenia TECHNIQUE: [employer] Dual energy absorptiometry (DEXA) of the lumbar [...] of the [employer] [place] for Metabolic Bone Disease, a World Health Organization (WHO) Collaborating Center. Electronically signed by: Oliverio Lind MD 12/25/2024 01:08 PM EDT Dictated By: Oliverio Lind MD Signed By: <Electronically signed by Oliverio Lind MD in OV> 12/25/24 1308 DD/ 1145 TD/TT: 12/25/24 1204 Homicide Detective: Procedure Note Donotuseinterpreter, Image - 12/25/2024 [facility] [address] [place] [address] Mammography Report Signed Patient: Ai Sevilla#: [id number] 39 : 8Acct:[id number] Age/Sex: 69 / FADM Date: 12/25/24 Loc: HO.MAMMO Attending Dr: Virgilio Parkinson MD Ordering Physician: Virgilio Parkinson MDResults: Date of Service: 12/25/24Follow Up: Procedure(s): XR DEXA axial skeleton Accession Number(s): [id number] cc: Cristy Monet MD; Virgilio Parkinson MD Reason For Exam: Osteopenia EXAMINATION: DXA BONE DENSITY AXIAL HISTORY: Osteopenia TECHNIQUE: [employer] Dual energy absorptiometry (DEXA) of the lumbar [...] is a trademark of the [employer]'s [place] for Metabolic Bone Disease, a World Health Organization (WHO) Collaborating Center. Electronically signed by: Oliverio Lind MD 12/25/2024 01:08 PM EDT Dictated By: Oliverio Lind MD Signed By: <Electronically signed by Oliverio Lind MD in OV> 12/25/24 1308 DD/ 1145 TD/TT: 12/25/24 1204 Homicide Detective: [facility] External Provider IMG DXA PROCEDURES Edited Result - Final documented in this encounter Visit Diagnoses Not on filedocumented in this encounter Care Teams Fulfillment Representative Relationship Specialty Start Date End Date Cristy Monet MD [address] [place] [address] PCP - General Family Medicine 12/12/19 Sung Rand, Bill [address] [place] [address] Pharmacist Internal Medicine 3/25/25 documented as of this encounter
--- OUTSIDE RECORDS SUMMARY | 2024-12-25 14:58 | XMS_ITS | Encounter Summary ---
Author Organization [employer] Address [address] [facility] 7t [place] [address] Care Team Providers Care Property And Casualty Insurance Agent Name Role Phone Cristy Monet MD Primary Care Provider + Sung Rand PharmD Unavailable [phone] Encounter Details Date Type Department Care Team ([facility] st Contact Info) Description 09/10/2023 Telephone [facility] [address] [place], [place] [phone] Cristy Monet MD 230 [place], [place] [phone] Social History Tobacco Use Types Packs/Day Years [...] Info) Description 02/12/2025 11:30 AM EST Telemedicine [facility] 230 [place] [address] Sung Rand, Bill [address] [place] [address] 03/16/2025 11:00 AM EST Office Visit [facility] OPTOMETRY [address] [place] [address] Filemon, [place], OD [address] [place] [address] documented as of this encounter Visit Diagnoses Not on filedocumented in this encounter Care Teams Property And Casualty Insurance Agent Relationship Specialty Start Date End Date Cristy Monet MD [address] [place] [address] PCP - General Family Medicine 12/12/19 Sung Rand, DaeD [address] [place] [address] Pharmacist Internal Medicine 05/27/24 documented as of this encounter
== END 2024-12-25 11:44 | disposition home or self-care (01) ==
LOC: HO.MAMMO 11:43
PROVIDERS: PCP Internal Medicine; Visit Provider Internal Medicine Medical Oncology
DX: Z13.820 Encounter for screening for osteoporosis (principal); M85.89 Other specified disorders of bone density and structure, multiple sites
CPT/HCPCS: 77080

== ENCOUNTER → 2024-12-25 12:00 | Outpatient (BNV) | payer OTHER, SELFPAY | PROVIDERS: PCP Internal Medicine; Visit Provider Radiology Diagnostic Radiology | DX: E28.39 Other primary ovarian failure (principal) | CPT/HCPCS: 77080 ==

== ENCOUNTER 2025-01-13 08:18 | Outpatient (AMB) | payer OTHER, SELFPAY ==
[2025-01-13 08:25] VITALS: BP 110/70; PULSE 59; BMI 21.1
--- NOTE | 2025-01-13 08:25 | A.OFFVIS_ITS ---
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 Receptionist Nurse Required: Yes Receptionist Nurse Language: Healthcare Management Name: marycarmene/cymro/ [id number] Accompanied by: Self / Same As Patient Allergies No Known Allergies Allergy (Mild, Verified 01/13/25 08:26) Medication List - Last Reconciled 01/13/25 by Seamus Krueger MD amlodipine (Norvasc) 5 mg PO DAILY aripiprazole (Abilify) 5 mg PO DAILY aspirin 81 mg PO QAM calcium carbonate-vitamin D3 600 mg-10 mcg (400 unit) (Calcium 600 + D(3)) 1 tab PO BID citalopram (Celexa) 20 mg PO DAILY clonidine HCl 0.1 mg PO DAILY docusate sodium (Colace) 100 mg PO BID PRN hydrochlorothiazide 25 mg PO DAILY hydroxychloroquine (Plaquenil) 200 mg PO MOTUWETHFR ipratropium-albuterol 20-100 mcg/actuation (Combivent Respimat) 1 puff inhalation DAILY PRN isoniazid 300 mg PO DAILY 30 days letrozole 2.5 mg PO Q24H losartan (Cozaar) 100 mg PO DAILY mastectomy bra As Directed metoprolol tartrate 25 mg PO BID omeprazole 20 mg PO BID ondansetron 4 mg PO Q8H PRN pravastatin 40 mg PO DAILY Prosthesis, breast (Breast prosthesis) As Directed pyridoxine (vitamin B6) (Vitamin B-6) 50 mg PO DAILY umeclidinium 62.5 mcg/actuation (Incruse Ellipta) 1 inh inhalation DAILY zolpidem (Ambien) 5 mg PO BEDTIME PRN HPI Comments Details: Delilah has been referred for cardiac evaluation. Per referral note, referred as SVT/history of NSTEMI. However, not entirely clear how these were diagnosed in the past. Patient denies any previous cardiac procedures or coronary interventions. Hence not clear about the NSTEMI. Almost all the troponin levels in our system starting from 2020 are within normal range. With regard to the SVT, reviewed about 20 or so EKGs going back the last 2 decades and there was no evidence of the same. Again not clear how this was diagnosed either. Patient describes some random palpitations but otherwise no symptoms like exertional angina or anything else cardiac. [facility] Medical History Invasive lobular carcinoma of breast in female Family history of breast cancer Left breast mass Long-term use of Plaquenil Seronegative rheumatoid arthritis Positive TB test Encounter before starting medication Smoker unmotivated to quit Inflammatory arthritis Bilateral hand swelling Joint pain in both hands High blood cholesterol HTN (hypertension) Surgical History History of total mastectomy of left breast (~11/17/24) Hx of esophagogastroduodenoscopy Hx of colonoscopy Family History (Updated 01/13/25 @ 08:28 by Lucina Roca CMA) Sister Breast cancer Mother High blood pressure Social History Household Members: None Household Members Other:: lives alone Housing: Apartment Are you a primary medicare interviewer to a significant other at home: No Do you presently have visiting nurse or other home services: Yes (vice president of advertising) Alcohol intake: current Alcohol intake frequency: holidays/special occasions only Alcohol type: beer Patient Tobacco Use Status: Current everyday Tobacco user Tobacco use type: Cigarette Cigarette Packs Per Day: 5 Cigarettes Per Day: 5 Second Hand Smoke Exposure: No Substance Use Type: Marijuana service: No Current occupational status: disabled Current occupational exposures/hazards: No Review of Systems Const Denies chills, Denies fatigue, Denies fever(s), Denies frequent falls, Denies weakness, Denies weight gain and Denies weight loss ENT Denies dizziness Card Denies chest pain, Denies leg edema, Denies lightheadedness, Denies palpitations, Denies dyspnea, Denies dyspnea on exertion and Denies orthopnea Resp Denies cough, Denies dyspnea and Denies dyspnea on exertion GI Denies bloating and Denies change in bowel habits Musc Denies muscle weakness, Denies numbness and Denies tingling Neuro Denies dizziness, Denies frequent falls, Denies numbness, Denies tingling and Denies weakness Endo Denies fatigue and Denies palpitations Physical Exam Vital Signs: Last Vital Signs Pulse 59 01/13/25 08:25 BP 110/70 01/13/25 08:25 BMI result Body Mass Index 21.1 Const General: comfortable and no acute distress Orientation/consciousness: patient oriented x3 HEENT Other: Unremarkable Head: Yes normal to inspection Neck Neck: Yes normal visual inspection Chest Chest palpation & inspection: normal inspection of the chest Resp Auscultation: clear to auscultation bilaterally Cardio Palpation: normal PMI Heart sounds: S1 normal heart sound present, S2 normal heart sound present, no gallops, no murmurs and no rubs GI Palpation (GI): Soft to palpation Back/Spine/Pelvis Other: unremarkable Skin General skin exam: no rashes or lesions noted Neuro General: patient oriented x3 Extrem General: Yes normal to inspection Psych Mental Status: mental status grossly normal Assessment & Plan Assessment & Plan (1) History of non-ST elevation myocardial infarction (NSTEMI): Code(s): I25.2 - Old myocardial infarction Category: Medical (2) Palpitations: Code(s): R00.2 - Palpitations Category: Medical Plan In the most recent EKG from August, sinus rhythm at 92/Min and no clear ischemic changes; normal NV and corrected QT. Reviewed about 20-25 EKGs going back all the way to 2005, and cannot find any evidence of SVT. With regard to the NSTEMI, reviewed all the troponins going back to 2020 and nothing abnormal. We will check an echocardiogram for any clear evidence of LV dysfunction or wall motion abnormalities. If indeed there is any such finding, then may need ischemic workup with a stress test. With regard to the palpitations and referral diagnosis of SVT, we will do a Holter monitor. If any clear abnormal findings, we will plan on follow-up. Orders: Orders CA echo transthoracic complete Today I25.2 - Old myocardial infarction ECG holter monitor 48 hour Today R00.2 - Palpitations Coding Level of Care Code New Pt Level 4 (58287) Complex EM visit Add On G2211 Diagnoses History of non-ST elevation myocardial infarction (NSTEMI) I25.2 Palpitations R00.2
--- OUTSIDE RECORDS SUMMARY | 2025-01-13 08:25 | XMS_ITS | Encounter Summary ---
Author Organization [employer] Address [address] [facility] 7t [place] [address] Care Team Providers Care Copper Plate Lithographer Name Role Phone Cristy Monet MD Primary Care Provider + Sung Rand PharmD Unavailable [phone] Encounter Details Date Type Department Care Team (Late Contact Info) Description 09/13/2022 Orders Only [facility] MEDICINE [address] [place], [place] [phone] Cristy Monet MD [address] [place], [place] [phone] Hyperkalemia (Primary Dx); Hypercalcemia Social History Tobacco [...] Upcoming Encounters Date Type Department Care Team ([facility] Contact Info) Description 02/12/2025 11:30 AM EST Telemedicine [facility] MEDICINE [address] [place], [place] [phone] Sung Rand, PharmD [address] [place] [address] 03/16/2025 11:00 AM EST Office Visit [facility] OPTOMETRY [address] [place], [place] [phone] Filemon, [place], OD [address] [place] [address] documented as of this encounter Procedures Procedure Name Priority Date/Time Associated Diagnosis Comments BASIC METABOLIC PANEL Routine 09/25/2022 8:41 AM EDT Hyperkalemia Hypercalcemia documented in this encounter Results * (ABNORMAL) Basic Metabolic Panel (09/25/2022 8:41 AM EDT) Sodium 138 135 - 145 mmol/L [facility] Potassium 5.0 3.3 - 5.1 mmol/L [facility] Chloride 102 96 - 108 mmol/L [facility] Carbon Dioxide 30(H) 22 - 29 mmol/L [facility] Anion Gap 11(L) 12 - 20 [facility] Urea Nitrogen (BUN) 15 9 - 16 mg/dL [facility] Creatinine, Serum 0.78 0.5 - 1.4 mg/dL [facility] Estimated Glomerular Filt Rate >60 [facility] Comment:NOTE: For -Am erican individuals, multiply the result by 1.210.Chronic Kidney Disease: Estimated GFR < 60 mL/min/[id number] Kidney Disease: Estimated GFR < 15 mL/min/1.73m2 Glucose 96 60 - 115 mg/dL [facility] Calcium 9.6 8.4 - 10.2 mg/dL [facility] Blood Venous blood specimen / Unknown 09/25/2022 8:41 AM EDT 09/25/2022 11:03 AM EDT us Cristy Monet MD LAB BLOOD ORDERABLES Fin al Result [facility] [address] [place] [address] [phone] documented in this encounter Visit Diagnoses Diagnosis Hyperkalemia- Primary Hyperpotassemia Hypercalcemia documented in this encounter Care Teams Copper Plate Lithographer Relationship Specialty Start Date End Date Cristy Monet MD [address] [place] [phone] PCP - General Family Medicine 12/12/19 Sung Rand, Bill [address] [place] [phone] Pharmacist Internal Medicine 05/27/24 documented as of this encounter
--- OUTSIDE RECORDS SUMMARY | 2025-01-13 08:25 | XMS_ITS | Encounter Summary ---
Author Organization [employer] Address [address] [facility] 7t [place] [address] Care Team Providers Care Senior Manager [employer] Name Role Phone Cristy Monet MD Primary Care Provider + Sung Rand PharmD Unavailable [phone] Reason for Visit * Reason Comments Med Refill Encounter Details Date Type Department Care Team ([facility] st Contact Info) Description 01/14/2024 Refill [facility] MED[facility] [address] [place], [place] [phone] Cristy Monet MD [address] [place], [place] [phone] Social History Tobacco Use Types Packs/Day Years [...] 02/12/2025 11:30 AM EST Telemedicine [facility] [address] [place] [address] Sung Rand, PharmSymone [address] [place] [address] 03/16/2025 11:00 AM EST Office Visit [facility] OPTOMETRY [address] [place], [place] [phone] [place] Col[place], OD [address] [place] [address] documented as of this encounter Visit Diagnoses Not on filedocumented in this encounter Care Teams Senior Manager [employer] Relationship Specialty Start Date End Date Cristy Monet MD [address] [place] [phone] PCP - General Family Medicine 12/12/19 Sung Rand, PharmD [address] [place] [address] [phone] Pharmacist Internal Medicine 05/27/24 documented as of this encounter
--- OUTSIDE RECORDS SUMMARY | 2025-01-13 08:25 | XMS_ITS | Encounter Summary ---
Author Organization [employer] Address [address] [facility] 7t [place] [address] Care Team Providers Care Analyst Programmer Name Role Phone Cristy Monet MD Primary Care Provider + Sung Rand PharmD Unavailable [phone] Encounter Details Date Type Department Care Team (Late st Contact Info) Description 06/09/2024 Orders Only [facility] [address] [place], [place] [phone] ProviderIda MD Social History Tobacco Use Types [...] Info) Description 02/12/2025 11:30 AM EST Telemedicine [facility] MEDICINE [address] [place] [address] Sung Rand, DaeD [address] [place] [address] 03/16/2025 11:00 AM EST Office Visit [facility] OPTOMETRY [address] [place] [address] Filemon, [place], OD [address] [place] [address] documented as of this encounter Procedures Procedure Name Priority Date/Time Associated Diagnosis Comments BIOPSY CERVIX Routine 05/02/2024 11:47 AM EST documented in this encounter Results * Biopsy cervix (05/02/2024 11:47 AM EST) Historical Provider IN CLINIC/BEDSIDE ORDERAB LES Final Result documented in this encounter Visit Diagnoses Not on filedocumented in this encounter Care Teams Analyst Programmer Relationship Specialty Start Date End Date Cristy Monet MD [address] [place] [phone] PCP - General Family Medicine 12/12/19 Sung Rand, PharmD [address] [place] [phone] Pharmacist Internal Medicine 05/27/24 documented as of this encounter
--- OUTSIDE RECORDS SUMMARY | 2025-01-13 08:25 | XMS_ITS | Encounter Summary ---
Author Organization [employer] Address [address] [facility] [address]t [place] [address] Care Team Providers Care Jeep Mechanic Name Role Phone Cristy Monet MD Primary Care Provider + Sung Rand PharmD Unavailable [phone] Encounter Details Date Type Department Care Team ([facility] st Contact Info) Description 09/10/2023 Telephone [facility] MEDICINE [address] [place], [place] [phone] Cristy Monet MD 230 [place], [place] [phone] Social History Tobacco Use Types Packs/Day Years [...] Telemedicine [facility] MED[facility]INE [address] [place] [address] Sung Rand, Bill [address] [place] [address] 03/16/2025 11:00 AM EST Office Visit [facility] OPTOMETRY [address] [place] [address] Filemon, [place], OD [address] [place] [address] documented as of this encounter Visit Diagnoses Not on filedocumented in this encounter Care Teams Jeep Mechanic Relationship Specialty Start Date End Date Cristy Monet MD [address] [place] [phone] PCP - General Family Medicine 12/12/19 Sung Rand, DaeD [address] [place] [phone] Pharmacist Internal Medicine 05/27/24 documented as of this encounter
--- OUTSIDE RECORDS SUMMARY | 2025-01-13 08:25 | XMS_ITS | Encounter Summary ---
Author Organization [employer] Address [address] [facility] [address] [place] [address] Care Team Providers Care Manufacturing Helper Name Role Phone Cristy Monet MD Primary Care Provider + Sung Rand PharmD Unavailable [phone] Reason for Visit * Reason Comments Med Refill Encounter Details Date Type Department Care Team ([facility] st Contact Info) Description 02/03/2024 Refill [facility] [address] [place], [place] [phone] Niru Oakes MD [address] [place] [address] Resistant hypertension Social History Tobacco Use Types [...] Info) Description 02/12/2025 11:30 AM EST Telemedicine [facility] MEDICINE [address] [place] [address] Sung Rand, PharmD [address] [place] [address] 03/16/2025 11:00 AM EST Office Visit [facility] OPTOMETRY [address] [place] [address] Filemon, [place], OD [address] [place] [address] documented as of this encounter Visit Diagnoses Diagnosis Resistant hypertension documented in this encounter Care Teams Manufacturing Helper Relationship Specialty Start Date End Date Cristy Monet MD [address] [place] [phone] PCP - General Family Medicine 12/12/19 Sung Rand, PharmD [address] [place] [phone] Pharmacist Internal Medicine 05/27/24 documented as of this encounter
--- OUTSIDE RECORDS SUMMARY | 2025-01-13 08:25 | XMS_ITS | Clinical Summary ---
Author Organization [employer] Address [address] [facility] [address] [place] [address] Care Team Providers Care Web Marketing Specialist Name Role Phone Cristy Monet MD Primary Care Provider + Sung Rand PharmD Unavailable [phone] Allergies Active Allergy Reactions Criticality Noted Date [...] 30 tablet 11 07/15/19 25 026 Active citalopram (CeleXA) 20 [...] meal. 30 tablet 1 08/23/19 25 Active hydroxychloroqui ne (Plaquenil) 200 MG tablet TAKE 1 TABLET BY MOUTH ONCE DAILY SUNDAY THROUGH SUNDAY AND TAKE 1 TABLET TWICE DAILY SUNDAY AND SUNDAY Active Incruse Ellipta 62.5 MCG/ACT aerosol powder INHALE 1 PUFF BY MOUTH EVERY DAY AT THE SAME TIME RINSE MOUTH AFTER USING 30 each 11 11/12/19 25 Active Calcium Carb-Cholecalcif fred (Oyster Shell Calcium w/D) 500-5 MG-MCG tablet TAKE 1 TABLET BY MOUTH TWICE DAILY IN THE MORNING AND IN THE EVENING 180 tablet 3 12/04/19 25 Active omeprazole (PriLOSEC) [address] capsule TAKE 1 CAPSULE BY MOUTH TWICE DAILY IN THE MORNING AND IN THE EVENING BEFORE MEALS 60 capsule 1 01/03/20 25 Active omeprazole (PriLOSEC) [address] capsule TAKE 1 CAPSULE BY MOUTH TWICE DAILY IN THE MORNING AND IN THE EVENING BEFORE MEALS 60 capsule 1 11/12/19 25 025 Discontinued Active Problems Problem Noted [...] this year, borders were negative Follow-up with TOOL CARRIER in 6 months Memory impairment 07/14/2024 Assessment & Plan (08/22/2024 11:00 AM EDT): Doing well on aspirin 81 mg, tolerates well. Advised to optimal control risk factors as mentioned at previous visit. His CT scan of the brain is normal, not showing microvascular changes. She has a SPECIMEN TRANSPORTER to help her with ADLs and remind [...] Stable managed with beta cayla Substance abuse ([facility]) 01/04/2024 Assessment & Plan [...] twice daily Will check regarding referral to economic development specialist due to resistant hypertension (8 was done [...] seems to be better controlled, seen by chrome cleaner Assessment & Plan (06/27/2023 10:39 AM EDT): - seen by rheumatology, reminded her to get labs done today and f/u with chrome cleaner Assessment & Plan (06/27/2023 9:57 AM EDT): [...] asymptomatic I will refer to rheumatology in [facility] to improve compliance [...] Encounters Date Type Department Care Team Description 01/02/2025 Refill [facility] [address] [facility] [place] [address] Cristy Monet MD 12/25/2024 Orders Only [facility] External Provider, [facility] 12/16/2024 Telephone [facility] [address] [facility] [place] [address] Cristy Monet MD 12/16/2024 Telephone [facility] [address] [place] [address] Cristy Monet MD 12/11/2024 11:00 AM EDT Telemedicine [facility] [address] [place] [address] Sung Rand, PharmD Primary hypertension (Primary Dx) 12/02/2024 Refill [facility] [address] [facility] [place] [address] Cristy Monet MD 11/19/2024 Telephone [facility] [address] [place] [address] Cristy Monet MD fyi; med list 11/12/2024 Telephone [facility] [address] [place] [address] Cristy Monet MD 11/11/2024 Refill [facility] [address] [place] [address] Cristy Monet MD 11/10/2024 Telephone [facility] [address] [place] [address] Cristy Monet MD Chart Prep 11/08/2024 Results Follow-Up [facility] [address] [place] [address] Cristy Monet MD Hematoxylin and Eosin Stain 11/05/2024 Orders Only GENERIC EXTERNAL DATA DEPARTMENT Provider, Generic External Data 10/27/2024 Telephone [facility] [address] [place] [address] Sung Rand, Bill 10/23/2024 11:30 AM EDT Telemedicine [facility] [address] [facility] [place] [address] Sung Rand, PharmD Primary hypertension (Primary Dx) 10/15/2024 Orders Only [facility] [address] [facility] [place] [address] Cristy Monet MD from Last 3 Months [...] Info) Description 02/12/2025 11:30 AM EST Telemedicine [facility] [address] [place] [address] Sung Rand, PharmD [address] [place] [address] 03/16/2025 11:00 AM EST Office Visit [facility] [address] [place] [address] Indiana Colbert, OD [address] [place] [address] Health Maintenance Due Date Last Done Comments [...] 07/2022, 08/07/2022, Additional history exists COVID-19 Vaccine ( season) 2024 01/04/2021, 12/14/2020 Influenza Vaccine (#1) [...] TOMOSYNTHESIS LEFT Routine 10/15/2024 1:20 PM EDT HM COLONOSCOPY Routine 12/25/2023 LIPID PANEL, [...] AM EDT Narrative 12/25/2024 1:11 PM EDT [facility] [address] [place] [address] Mammography Report Signed Patient: Delilah Sevilla MR#: [id number] 39 : 1955 Acct:[id number] Age/Sex: 69 / F ADM Date: 12/25/24 Loc: HO.MAMMO Attending Dr: Virgilio Parkinson MD Ordering Physician: Virgilio Parkinson MD Results: Date of Service: 12/25/24 Follow Up: Procedure(s): XR DEXA axial skeleton Accession Number(s): [id number] cc: Cristy Monet MD; Virgilio Parkinson MD Reason For Exam: Osteopenia EXAMINATION: DXA BONE DENSITY AXIAL HISTORY: Osteopenia TECHNIQUE: Curse Dual energy absorptiometry (DEXA) of the lumbar [...] is a trademark of the [employer] for Metabolic Bone Disease, a World Health Organization (WHO) Collaborating Center. Electronically signed by: Oliverio Lind MD 12/25/2024 01:08 PM EDT Dictated By: Oliverio Lind MD Signed By: <Electronically signed by Oliverio Lind MD in OV> 12/25/24 1308 DD/ 1145 TD/TT: 12/25/24 1204 Commuter Pilot: Procedure Note Donotuseinterpreter, Image - 12/25/2024 [facility] [address] [place], [place] [address] Mammography Report Signed Patient: Ai Sevilla#: [id number] 39 : 8Acct:[id number] Age/Sex: 69 / FADM Date: 12/25/24 Loc: [facility].MAMMO Attending Dr: Virgilio Parkinson MD Ordering Physician: Virgilio Parkinsonesults: Date of Service: 12/25/24Follow Up: Procedure(s): XR DEXA axial skeleton Accession Number(s): [id number] cc: Cristy Monet MD; Virgilio Parkinson MD Reason For Exam: Osteopenia EXAMINATION: DXA BONE DENSITY AXIAL HISTORY: Osteopenia TECHNIQUE: Curse Dual energy absorptiometry (DEXA) of the lumbar [...] of the [employer] for Metabolic Bone Disease, a World Health Organization (WHO) Collaborating Center. Electronically signed by: Oliverio Lind MD 12/25/2024 01:08 PM EDT Dictated By: Oliverio Lind MD Signed By: <Electronically signed by Oliverio Lind MD in OV> 12/25/24 1308 DD/ 1145 TD/TT: 12/25/24 1204 Commuter Pilot: [facility] External Provider IMG DXA PROCEDURES Edited Result - Final * NM SENTINEL NODE W IMAGING (11/17/2024 7:57 AM EDT) Anatomical Region Laterality Modality Nuclear Medicine 11/17/2024 7:57 AM EDT Narrative 11/17/2024 10:31 AM EDT [place] [address] Nuclear Medicine Report Signed Patient: Delilah Sevilla MR#: [id number] 39 : 1955 Acct:[id number] Age/Sex: 69 / F ADM Date: 11/17/24 [facility]: Leo Sevilla MD Ordering Physician: Leo Sevilla MD Date of Service: 11/17/24 Procedure(s): NM sentinel node w imaging Accession Number(s): [id number] cc: Cristy Monet MD; Leo Sevilla MD [...] Graeme Castillo MD 11/17/2024 10:28 AM EDT RP Dictated By: Graeme Castillo MD Signed By: <Electronically signed by Graeme Castillo MD in OV> 11/17/24 1028 DD/ 0757 TD/TT: 11/17/24 0930 Commuter Pilot: [facility] Procedure Note Donotuseinterpreter, Image - 11/17/2024 [place] [address] Nuclear Medicine Report Signed Patient: Delilah Sevilla#: [id number] 39 : 8Acct:[id number] Age/Sex: 69 / FADM Date: 11/17/24 Loc: HO.SSSA SSSA-[address]: Leo Sevilla MD Ordering Physician: Leo Sevilla MD Date of Service: 11/17/24 Procedure(s): NM sentinel node w imaging Accession Number(s): [id number] cc: Cristy Monet MD; Leo Sevilla MD [...] 11/17/24 1028 DD/ 0757 TD/TT: 11/17/24 0930 Commuter Pilot: ELZBIETA [facility] External Provider IMG NM PROCEDURES Edited Result - Final * Hematoxylin and Eosin Stain (11/05/2024 9:37 AM EDT) 11/05/2024 9:37 AM EDT 11/05/2024 10:32 AM EDT [facility] - 11/19/2024 10:25 AM EDT ----- ------- Name: Delilah Sevilla Age/Sex: 69/F : 1955 Unit#: [id number] Attend Dr: Leo Sevilla MD Re11/05/24 Status: DEP REF Location: HO.MAMMO Disch: ----- ------- SPEC : [id number] RECD: 11/05/24 STATUS: P[place]AJ [place] NUM: [id number] [place]: 11/05/24 [facility] [address]: Elda Graham DO ENTERED: 11/05/24 SP TYPE: Surgical OTHR DR: Cristy Monet MD,Leo JEAN-BAPTISTE ORDERED: HE Stain/2, Gross Micro L4, ER, SD, IHC, Add. immunos, IHC ER/SD/Her2N/4, E-cadherin, Sophia-3, Ki-67, [id number] COMMENTS: Block A/1 H E/1 stained slide sent to [facility] for HER2 FISH on 11/07/24. As per the specimen requisition slip the specimen is collected at 0937 and placed in formalin at 0941. Addendum Addendum 1 Entered: 11/19/241024 (A): [id number] ([employer]): Results: Negative Interpretation: Average HER2 signals/nucleus: 2.02 [...] section. Addendum Signed (signature on file) Glo Fazal 11/19/24 1025 ----- ------- Diagnosis Breast, left, 2:00, core biopsy: -Invasive lobular carcinoma, MSBR grade 2. Synoptic report Procedure: Core biopsy Specimen laterality: Left Histologic type: Invasive lobular carcinoma. Histologic grade ([place]/MSBR histologic score): 2 - Glandular/tubular differentiation: Score: 3 - Nuclear pleomorphism: Score: 2 CONTINUED ON NEXT PAGE ----- ------- Name: Delilah Sevilla [facility]/Sex: 69/F [facility] 1955 [id number]#: [id number] Attend Dr: Leo Sevilla MD Re11/05/24 Status: [place] [facility] ----- ------- SPEC : [id number] RECD: 11/05/24 STATUS: PANKAJ [place] NUM: [id number] [place]: 11/05/24 [facility] [address]: Elda Graham DO ENTERED: 11/05/24-1033 SP TYPE: Surgical OTHR DR: Cristy Monet MD, Francis MD ORDERED: HE Stain/2, Gross Micro L4, ER, SD, IHC, Add. immunos, IHC ER/SD/Her2N/4, E-cadherin, Sophia-3, Ki-67, [id number] COMMENTS: Block A/1 H E/1 stained slide [...] 20, 15%) -Controls (external and internal): Appropriate [employer] HER2 FISH analysis pending; addendum to follow. [...] Delilah Sevilla Age/Sex: 69/F : 1955 Unit#: [id number] Attend Dr: Leo Sevilla MD Re11/05/24 Status: DEP REF Location: HO.MAMMO Disch: ----- ------- SPEC : [id number] RECD: 11/05/24 STATUS: PANKAJ [place] NUM: [id number] [place]: 11/05/24 [facility] [address]: Elda Graham DO ENTERED: 11/05/24 SP TYPE: Surgical OTHR DR: Cristy Monet MD,Leo JEAN-BAPTISTE ORDERED: HE Stain/2, Gross Micro L4, ER, SD, IHC, Add. immunos, IHC ER/SD/Her2N/4, E-cadherin, Sophia-3, Ki-67, [id number] COMMENTS: Block A/1 H E/1 stained slide sent to [facility] for HER2 FISH on 11/07/24. As per [...] paraffin-embedded tissue. Time tissue removed from patient: :37 Time tissue placed in fixative: :41 Duration of fixation: 6-24 hrs. Interpretive Information All tests are performed on formalin-fixed, paraffin-embedded tissue using automated immunostain methods: Estrogen receptor: Clone SP1; [place] CON[facility] [place] DAB Progesterone receptor: Clone 1E2; [place] [facility] [place] DAB HER2: FDA-approved [place] PATHWAY anti-HER-2/robert (4B5) Monoclonal; [facility] [place] DAB Controls are performed and evaluated for [...] Delilah Sevilla Age/Sex: 69/F : 1955 Unit#: [id number] Attend Dr: Leo Sevilla MD Re11/05/24 Status: DEP REF Location: HO.MAMMO Disch: ----- ------- SPEC : [id number] RECD: 11/05/24 STATUS: PANKAJ [place] NUM: [id number] [place]: 11/05/[address]: Elda Graham DO ENTERED: 11/05/24 SP TYPE: Surgical OTHR DR: Cristy Monet MD, Francis MD ORDERED: HE Stain/2, Gross Micro L4, ER, SD, IHC, Add. immunos, IHC ER/SD/Her2N/4, E-cadherin, Sophia-3, Ki-67, [id number] COMMENTS: Block A/1 H E/1 stained slide sent to [facility] for HER2 FISH on 11/07/24. As per [...] and Progesterone Receptor Testing in Breast Cancer: [place] Society of Clinical Oncology/College of [place] [employer]ologists Guideline Update. Arch of Pathol Lab Med. 2020; 144(5): 545-563. Pee PRATT, Livier ALBRECHT, Katelin MAYERS, et al. Her2 testing in breast cancer: [place] Society of Clinical Oncology/College of [place] Pathologists clinical practice guideline focused update. Arch Pathol Lab Med. 2018; 142(11): 1866-4907. Arturo N, Akanksha P, et al. Adjuvant abemaciclib combined with endocrine therapy for high- risk early breast cancer: updated efficacy and Ki-67 analysis from the [facility] study. Sydnie Oncol. 2020;32(12):7783-7522. Livier MORTENSEN, [place] AGUILERA, et al. ASCO/CAP Guideline Recommendations for Immunohistochemical Testing of Estrogen and Progesterone Receptors in Breast Cancer. J Clin Oncol, 28 (16), 2010: 4529-8636. This case was reviewed intradepartmentally. Case discussed with Drew Graham and Roel by secure text by Dr. Diehl on 11/06/2024 at 12:07 pm. Special studies ordered and performed: Immunostains for ER, SD, HER2, Ki 67, E-cadherin, and GATA3 on A1. CONTINUED ON NEXT PAGE ----- ------- Name: Delilah Sevilla Age/Sex: 69/F : 1955 [id number] Unit#: [id number] Attend Dr: Leo Sevilla MD Re11/05/24 Status: DEP REF Location: .MAMMO Disch: ----- ------- SPEC : [id number] RECD: 11/05/24 STATUS: PANKAJ [place] NUM: [id number] [place]: 11/05/24 [facility] [address]: Elda Graham DO ENTERED: 11/05/24 SP TYPE: Surgical OTHR DR: Cristy Monet MD, Francis MD ORDERED: HE Stain/2, Gross Micro L4, ER, SD, IHC, Add. immunos, IHC ER/SD/Her2N/4, E-cadherin, Sophia-3, Ki-67, [id number] COMMENTS: Block A/1 H E/1 stained slide [...] developed and their performance characteristics determined by [facility]. They have not been cleared or approved by the U.S. Food and Drug Administration (FDA). However, the FDA has determined that such clearance or approval is not necessary. This laboratory is certified under the Clinical Laboratory Improvement Amendments of 1988 (CLIA) as qualified to perform high complexity clinical laboratory testing. Copies To: Cristy Monet MD [facility] [address] [place], [place] [id number] Leo Sevilla MD [facility] Surgeons [address] [place], [place] [phone] Elda Graham DO [address] [place] [address] ----- ------- Signed (signature on file) [place]o [place] 11/07/24 1035 ----- ------- END OF REPORT us Generic External Data Provider LAB BLOOD ORDERAB LES Final Result [facility] [address] [place], [place] [phone] * US BREAST NDL CORE BIOPSY LT (11/05/2024 9:15 AM EDT) Anatomical Region Laterality Modality Abdomen Ultrasound 11/05/2024 9:15 AM EDT Narrative 11/05/2024 11:58 AM EDT [facility] [address] [place] [address] Ultrasound Report Signed with Alta Patient: RoelDelilah MR#: [id number] 39 : 1955 Acct:[id number] Age/Sex: 69 / F ADM Date: 11/05/24 Loc: HO.MAMMO Attending Dr: Leo Sevilla MD Ordering Physician: Leo Sevilla MD Date of Service: 11/05/24 Procedure(s): US breast ndl core biopsy LT Accession Number(s): [id number] cc: Cristy Monet MD; Leo Sevilla MD [...] 11/05/24 1155 DD/ 0915 TD/TT: 11/05/24 1000 Commuter Pilot: Procedure Note Donotuseinterpreter, Image - 11/13/20[facility] [address] [place] [address] Ultrasound Report Signed with Addenda Patient: Delilah Sevilla#: [id number] 39 : 8Acct:[id number] Age/Sex: 69 / FADM Date: 11/05/24 Loc: HO.MAMMO Attending Dr: Leo Sevilla MD Ordering Physician: Leo Sevilla MD Date of Service: 11/05/24 Procedure(s): US breast ndl core biopsy LT Accession Number(s): [id number] cc: Cristy Monet MD; Leo Sevilla MD [...] OV> 11/05/24 1155 DD/ 4 TD/TT: 11/05/24999 Commuter Pilot: us [facility] External Provider IMG US PROCEDURES Edited Result - Final * BI Mammogram Diagnostic Tomosynthesis Left (11/05/2024 8:47 AM EDT) Only the most recent of2 resultswithin the time period is included. Anatomical Region Laterality Modality Breast Left Mammography 11/05/2024 8:47 AM EDT Narrative 11/05/2024 11:58 AM EDT [facility] [address] [place] [address] Mammography Report Signed with Addenda Patient: Delilah Sevilla MR#: [id number] 39 : 1955 Acct:[id number] Age/Sex: 69 / F ADM Date: 11/05/24 Loc: HO.MAMMO Attending Dr: Leo Sevilla MD Ordering Physician: Leo Sevilla MD Results: Date of Service: 11/05/24 Follow Up: Procedure(s): MM tomosynthesis diagnostic LT Accession Number(s): [id number] cc: Cristy Monet MD; Leo Sevilla MD [...] 11/05/24 1155 DD/ 0847 TD/TT: 11/05/24 1000 Commuter Pilot: Procedure Note Donotuseinterpreter, Image - 11/17/2024 [facility] [address] [place] [address] Mammography Report Signed with Alta Patient: Delilah SevillaMR#: [id number] 39 : 8Acct:[id number] Age/Sex: 69 / FADM Date: 11/05/24 Loc: HO.MAMMO Attending Dr: Leo Sevilla MD Ordering Physician: Leo Sevilla MDResults: Date of Service: 11/05/24Follow Up: Procedure(s): MM tomosynthesis diagnostic LT Accession Number(s): [id number] cc: Cristy Monet MD; Leo Sevilla MD [...] 11/05/24 1155 DD/ 0847 TD/TT: 11/05/24 1000 Commuter Pilot: [facility] External Provider IMG BI PROCEDURES Edited Result - Final * (ABNORMAL) Hemoglobin and Hematocrit (11/04/2024 10:10 AM EDT) Hemoglobin 12.2 12.0 - 16.0 g/dl [facility] Hematocrit 35.6(L) 37.0 - 47.0 % [facility] Blood Venous blood specimen / Unknown 11/04/2024 10:10 AM EDT 11/04/2024 11:03 AM EDT Cristy Monet MD LAB BLOOD ORDERABLES Fin al Result [facility] [address] [place] [phone] * Basic Metabolic Panel (11/04/2024 10:10 AM EDT) Sodium 135 135 - 145 mmol/L [facility] Potassium 4.3 3.3 - 5.1 mmol/L [facility] Chloride 102 96 - 108 mmol/L [facility] Carbon Dioxide 25 22 - 29 mmol/L [facility] Anion Gap 12 12 - 20 [facility] Urea Nitrogen (BUN) 13 9 - 16 mg/dL [facility] Creatinine, Serum 0.80 0.5 - 1.4 mg/dL [facility] Estimated Glomerular Filt Rate >60 [facility] Comment:Chronic Kidney Disea se: Estimated GFR < 60 mL/min/1.48q9Yoiyky Kidney Disease: Estimated GFR < 15 mL/min/1.73m2 Glucose 94 60 - 115 mg/dL [facility] Calcium 9.1 8.4 - 10.2 mg/dL [facility] Blood Venous blood specimen / Unknown 11/04/2024 10:10 AM EDT 11/04/2024 11:01 AM EDT us Cristy Monet MD LAB BLOOD ORDERABLES Fin al Result [facility] [address] [place] [phone] * BI US Breast Limited Left (10/15/2024 1:22 PM EDT) Anatomical Region Laterality Modality Breast Left Ultrasound 10/15/2024 1:22 PM EDT Narrative 10/15/2024 2:17 PM EDT [facility] [address] [place] [address] Ultrasound Report Signed Patient: Delilah Sevilla MR#: [id number] 39 : 1955 Acct:[id number] Age/Sex: 69 / F ADM Date: 10/15/24 Loc: HO.MAMMO Attending Dr: Cristy Monet MD Ordering Physician: Cristy Monet MD Date of Service: 10/15/24 Procedure(s): US breast LT limited mamm only Accession Number(s): [id number] cc: Cristy Monet MD EXAMINATION: MM DIAGNOSTIC [...] 10/15/24 1414 DD/ 1322 TD/TT: 10/15/24 1358 Commuter Pilot: Procedure Note Donotuseinterpreter, Image - 10/16/2024 [facility] [address] [place], [place] [address] Ultrasound Report Signed Patient: RoelAi#: [id number] 39 : 8Acct:[id number] Age/Sex: 69 / FADM Date: 10/15/24 Loc: HO.MAMMO Attending Dr: Cristy Monet MD Ordering Physician: Cristy Monet MD Date of Service: 10/15/24 Procedure(s): US breast LT limited mamm only Accession Number(s): [id number] cc: Cristy Monet MD EXAMINATION: MM DIAGNOSTIC [...] 10/15/24 1414 DD/ 1322 TD/TT: 10/15/24 1358 Commuter Pilot: us Cristy Monet MD IMG US PROCEDURES Final Result * (ABNORMAL) Colonoscopy (12/25/2023) Colonoscopy Abnormal( A) Normal [facility] Comment:TA + hyperplastic po lyps us Cristy Monet MD HEALTH MAINTENANCE Final Result [facility] [address] [place] [phone] * (ABNORMAL) Lipid Panel, Standard (12/19/2023 9:22 AM EDT) Triglycerides 79 <150 mg/dL [facility] Comment:Desirable Triglyceri de: less than 150 mg/dLBorderline High Triglyceride 150-199 mg/dLHigh Triglyceride: 200-499 mg/dLVery High Triglyceride: greater than or equal to 5OO mg/dL Cholesterol 224(H) <200 mg/dL [facility] Comment:Desirable Cholestero l: less than 200 mg/dLBorderline High Cholesterol: 200-239 mg/dLHigh Cholesterol: greater than 239 mg/dL LDL Cholesterol Calculated 117(H) <100 mg/dL [facility] Comment:Desirable LDL: less than 100 mg/dLNear Optimal/Above Optimal LDL: 110- 129 mg/dLBorderline High LDL: 130-159 mg/dLHigh LDL: 160-189 mg/dLVery High LDL: greater than or equal to 190 mg/dL HDL Cholesterol 92 >40 mg/dL [facility] Comment:Desirable HDL: great er than 40 mg/dL Note: This HDL assay may give artificially low results in patients with liver disease. 12/19/2023 9:22 AM EDT 12/19/2023 11:43 AM EDT Cristy Monet MD LAB BLOOD ORDERABLES Fin al Result Performing Organization Address [facility] de Phone Number [facility] [address] [place] [phone] * Hepatitis Panel, General (12/04/2023 9:36 AM EDT) Hepatitis A IgM Nonreactive Nonreactive [facility] Comment:IgM antibodies to MARTINES V not detected; does not exclude earlyacute or recovered HAV infection. ~Hepatitis B Surface Antibody REACTIVE Nonreactive [facility] Comment:REACTIVE: > 11.99 mI U/mL Hepatitis B Core Antibody Nonreactive Nonreactive [facility] Hepatitis C Antibody Nonreactive Nonreactive [facility] Comment:Antibodies to HCV no t detected; does not exclude early acuteHCV infection. Hepatitis B Surface Ag Negative Negative [facility] Blood 12/04/2023 9:36 AM EDT 12/04/2023 11:01 AM EDT Cristy Monet MD LAB BLOOD ORDERABLES Fin al Result Performing Organization Address [facility] de Phone Number [facility] [address] [place] [phone] * (ABNORMAL) ThinPrep?? Imaging Pap Refl HPV mRNA(if ASCUS,ASC- H,LSIL,HSIL,TWILA)Refl Genotype (10/18/2023 10:43 AM EDT) HPV nRNA E6/E7 Detected(A ) Not Detected [facility] Comment:Methodology: Transcr iption-Mediated AmplificationThis assay detects E6/E7 viral messenger RNA (mRNA) from 14high-risk HPV types (16,18,31,33,35,39,45,51,52,56,58,59,66,68).Cervical sources are required for HPV testing.If a vaginal source from a patient who has had atotal hysterectomy with removal of cervix wassubmitted, please contact the testing laboratoryfor alternative testing options.For additional information, please refer [email or web address].[employer]/faq/EQN657h1(This link if provided for information/educational purposes only.)THIS TEST WAS PERFORMED AT:[facility] [address] [id number] MEDINA MD HPV 16,18/45 NOT DETECTED NOT DETECTED [facility] Comment:Methodology: Transcr iption Mediated AmplificationCervical sources are required for HPV testing.If a vaginal source from a patient who has had atotal hysterectomy with removal of cervix wassubmitted, please contact the testing laboratoryfor alternative testing options.THIS TEST WAS PERFORMED AT:[facility] [address] [phone] MEDINA MD SOURCE: SEE NOTE [facility] Comment:None given Report Status: [facility] Clinical Information: SEE NOTE [facility] Comment:None given LMP: SEE NOTE [facility] Comment:NONE GIVEN Prev. PAP: SEE NOTE [facility] Comment:NONE GIVEN Prev. BX: SEE NOTE [facility] Comment:NONE GIVEN Statement Of Adequacy: SEE NOTE [facility] Comment:Satisfactory for naheed luation.Endocervical/transformation zone componentpresent. General Categorization: SEE NOTE(A) [facility] Comment:Cytology Results: Ep ithelial Cell Abnormality Interpretation/Result: SEE NOTE(A) [facility] Comment:Atypical Squamous Ce lls of UndeterminedSignificance (ASC-US) Cytology Comment SEE NOTE [facility] Comment:This Pap test has be en evaluated with computerassisted technology. Industrial Safety Engineer: SEE NOTE [facility] Comment:DCR, CT(ASCP)CT scre ening location: [place] [address] Review Industrial Safety Engineer: [facility] Pathologist SEE NOTE [facility] Comment:Valerio Romero M.D./M.S .,Board Certified in Anatomic Pathology andBoard Eligible Cytopathology(electronic signature)Consulting PathologistUMaLoring [facility]ology1 [place], [place] [phone] PAP Infection TNP [facility] See Note SEE NOTE [facility] Comment:EXPLANATORY NOTE:The Pap is a screening test for cervical cancer. It isnot a diagnostic test and is subject to false negativeand false positive results. It is most reliable when asatisfactory sample, regularly obtained, is submittedwith relevant clinical findings and history, and whenthe Pap result is evaluated along with historic andcurrent clinical information.THIS TEST WAS PERFORMED AT:[facility] ANATOMIC PATHOLOGY1 [place] [address]PATBPLETICIA REYEZ MD 10/18/2023 10:4 3 AM EDT 10/18/2023 4:30 PM EDT Narrative [facility] - 10/31/2023 11:52 AM EDT SEE SCANNED RESULTS IN EMR us Cristy Monet MD LAB CYTOLOGY ORDERABLES Final Result [facility] [address] [place] [address] [phone] from Last 3 Months or Most Recently Relevant to Health Maintenance Insurance [facility] [employer] (HMO D-SNP) SANDRA RUIZ [id number] [facility] Care Teams Web Marketing Specialist Relationship Specialty Start Date End Date Cristy Monet MD [address] [place] [address] PCP - General Family Medicine 12/12/19 Sung Rand, DaeD [address] [place] [address] Pharmacist Internal Medicine 05/27/24
--- OUTSIDE RECORDS SUMMARY | 2025-01-13 08:25 | XMS_ITS | Encounter Summary ---
Author Organization [email or web address] Address [address] [facility] [address] [place] [address] Care Team Providers Care Cooking Show Host Name Role Phone Cristy Monet MD Primary Care Provider + Sung Rand PharmD Unavailable [phone] Encounter Details Date Type Department Care Team (Late st Contact Info) Description 03/28/2022 Orders Only [facility] [address] [place] [address] Odilia Smiley LPN Social History Tobacco Use [...] Info) Description 02/12/2025 11:30 AM EST Telemedicine [facility] [address] [place] [address] Sung Rand, PharmD [address] [place] [address] 03/16/2025 11:00 AM EST Office Visit [facility] [address] [place] [address] File[place], [place], OD [address] [place] [address] documented as of this encounter Visit Diagnoses Not on filedocumented in this encounter Care Teams Cooking Show Host Relationship Specialty Start Date End Date Cristy Monet MD [address] [place], [place] [phone] PCP - General Family Medicine 12/12/19 Sung Rand PharmD [address] [place] [address] Pharmacist Internal Medicine 05/27/24 documented as of this encounter
--- OUTSIDE RECORDS SUMMARY | 2025-01-13 08:25 | XMS_ITS | Encounter Summary ---
Author Organization [employer] Address [address] [place] [address] Care Team Providers Care Restoration Silversmith Name Role Phone Cristy Monet MD Primary Care Provider + Sung Rand PharmD Unavailable [phone] Encounter Details Date Type Department Care Team (Late st Contact Info) Description 04/17/2024 Orders Only [facility] [address] [place], [place] [phone] ProviderIda MD Social History Tobacco Use Types [...] Description 02/12/2025 11:30 AM EST Telemedicine [facility] [address] [place] [address] Sung Rand, Bill [address] [place] [address] 03/16/2025 11:00 AM EST Office Visit [facility] [address] [place] [address] Filemon, [place], OD [address] [place] [address] documented as of this encounter Procedures Procedure Name Priority Date/Time Associated Diagnosis Comments COLPOSCOPY Routine 04/14/2024 3:06 PM EST documented in this encounter Results * Colposcopy (04/14/2024 3:06 PM EST) us Historical Provider IN CLINIC/BEDSIDE ORDERAB LES Final Result documented in this encounter Visit Diagnoses Not on filedocumented in this encounter Care Teams Restoration Silversmith Relationship Specialty Start Date End Date Cristy Monet MD [address] [place] [address] PCP - General Family Medicine 12/12/19 Sung Rand, PharmSymone [address] [place] [phone] Pharmacist Internal Medicine 05/27/24 documented as of this encounter
--- OUTSIDE RECORDS SUMMARY | 2025-01-13 08:25 | XMS_ITS | Encounter Summary ---
Author Organization [employer] Address [address] [facility] [address] [place] [address] Care Team Providers Care Military Professional Name Role Phone Cristy Monet MD Primary Care Provider + Sung Rand PharmD Unavailable [phone] Encounter Details Date Type Department Care Team ([facility] st Contact Info) Description 11/08/2024 Results Follow-Up [facility] [address] [place] [address] Cristy Monet MD [address] [place] [address] Hematoxylin and Eosin Stain Social History Tobacco [...] Info) Description 02/12/2025 11:30 AM EST Telemedicine [facility] [address] [place] [address] Sung Rand, PharmD [address] [place] [address] 03/16/2025 11:00 AM EST Office Visit [facility] [address] [place] [address] [place], OD [address] [place] [address] documented as of this encounter Visit Diagnoses Not on filedocumented in this encounter Care Teams Military Professional Relationship Specialty Start Date End Date Cristy Monet MD [address] [place], [place] [phone] PCP - General Family Medicine 12/12/19 Sung Rand, Bill [address] [place] [phone] Pharmacist Internal Medicine 05/27/24 documented as of this encounter
--- OUTSIDE RECORDS SUMMARY | 2025-01-13 08:25 | XMS_ITS | Encounter Summary ---
Author Organization [employer] Address [address] [place] [address] [address] [place] [address] Care Team Providers Care Large Sheetfed Press Operator Name Role Phone Cristy Monet MD Primary Care Provider + Sung Rand PharmD Unavailable [phone] Encounter Details Date Type Department Care Team (Late st Contact Info) Description 07/07/2022 Orders Only [facility] [address] [place] [address] Odilia Smiley LPN Social History Tobacco Use [...] Info) Description 02/12/2025 11:30 AM EST Telemedicine [facility] [address] [place] [address] Sung Rand, PharmD [address] [place] [address] 03/16/2025 11:00 AM EST Office Visit [facility] [address] [place] [address] Filemon, [place], OD [address] [place] [address] documented as of this encounter Procedures Procedure Name Priority Date/Time Associated Diagnosis Comments BI MAMMOGRAM SCREENING TOMOSYNTHESIS BILATERAL Routine 07/07/2022 1:05 PM EDT documented in this encounter Results * BI Mammogram Screening Tomosynthesis Bilateral (07/07/2022 1:05 PM EDT) Anatomical Region Laterality Modality Breast Bilateral Mammography 07/07/2022 1:05 PM EDT Narrative 07/10/2022 1:12 PM EDT [facility] [address] [place] [address] Mammography Report Signed Patient: Delilah Sevilla MR#: [id number] : 1955 Acct:[id number] Age/Sex: 66 / F ADM Date: 07/07/22 Loc: HO.MAMMO Attending Dr: Cristy Monet MD Ordering Physician: Cristy Monet MD Results: 2Be nign Findings Date of Service: 07/07/22 Follow Up: 1 Year From Orig ina Mammogram Procedure(s): MM tomosynthesis screening BI Accession Number(s): [id number] cc: Cristy Monet MD EXAMINATION: MM SCREENING [...] in OV> 07/10/22 1309 DD/ 1305 TD/TT: Manager Oracle: ACOSTA Procedure Note Donotuseinterpreter, Image - 08/31/2022 [facility] [address] [place], [place] [address] Mammography Report Signed Patient: Delilah SevillaMR#: [id number] 39 : 8Acct:[id number] Age/Sex: 66 / FADM Date: 07/07/22 Loc: HO.MAMMO Attending Dr: Cristy Monet MD Ordering Physician: Cristy Monet MDResults: 2Be nign Findings Date of Service: 07/07/22Follow Up: 1 Year From Orig ina Mammogram Procedure(s): MM tomosynthesis screening BI Accession Number(s): [id number] cc: Cristy Monet MD EXAMINATION: MM SCREENING [...] in OV> 07/10/22 1309 DD/ 1305 TD/TT: Manager Oracle: ACOSTA [facility] External Provider IMG BI PROCEDURES Final Result documented in this encounter Visit Diagnoses Not on filedocumented in this encounter Care Teams Large Sheetfed Press Operator Relationship Specialty Start Date End Date Cristy Monet MD [address] [place] [address] PCP - General Family Medicine 12/12/19 Sung Rand, Bill [address] [place] [address] Pharmacist Internal Medicine 05/27/24 documented as of this encounter
== END 2025-01-13 08:42 | disposition home or self-care (01) ==
LOC: HO.HCS 08:18
PROVIDERS: PCP Internal Medicine; Visit Provider Internal Medicine
DX: I25.2 Old myocardial infarction (principal); R00.2 Palpitations
CPT/HCPCS: 99214; G2211

== ENCOUNTER → 2025-01-13 08:18 | Outpatient (BNVA) | payer OTHER, SELFPAY | PROVIDERS: PCP Internal Medicine; Visit Provider Internal Medicine | DX: R00.2 Palpitations (principal); I25.2 Old myocardial infarction | CPT/HCPCS: 99212 ==

== ENCOUNTER → 2025-02-19 09:39 | Outpatient (REF) | payer OTHER, SELFPAY ==
[2025-02-18 11:33] LABS: MANUAL DIFF FLAG NO
[2025-02-18 11:38] LABS: Hematocrit 35.7 % (37.0-47.0); Hemoglobin 12.5 g/dl (12.0-16.0); Imm Gran Abs Auto 0.02 X10*3/uL (0.00-0.03); Imm Gran Pct Auto 0.3 % (0.0-0.4); Lymphocytes Absolute Auto 1.8 X10*3/uL (1.2-4.9); Mean Corpuscular HGB Conc 35.0 g/dl (31.0-35.0); Mean Corpuscular Hemoglobin 31.8 pg (27.0-33.0); Mean Corpuscular Volume 90.8 fL (80.0-98.0); NRBC Abs Auto 0.000 X10*3/uL (0.0-0.012); NRBC Pct Auto 0.0 /100WBC (0.0-0.2); Platelet Count 293 X10*3/uL (160-400); Red Blood Count 3.93 X10*6/uL (4.20-5.50); White Blood Count 7.2 X10*3/uL (4.8-10.8)
[2025-02-18 11:52] LABS: Alanine Aminotransferase 11 U/L (0-31); Albumin Level 4.3 g/dL (3.5-5.0); Alkaline Phosphatase 135 U/L (39-117); Anion Gap 13 (12-20); Aspartate Amino Transferase 30 U/L (5-31); Blood Urea Nitrogen 19 mg/dL (9-16); Calcium 9.0 mg/dL (8.4-10.2); Carbon Dioxide 25 mmol/L (22-29); Chloride 95 mmol/L (96-108); Estimated Glomerular Filt Rate 56; Potassium 3.9 mmol/L (3.3-5.1); Sodium 129 mmol/L (135-145); Total Protein 7.0 g/dL (6.5-8.0)
--- OUTSIDE RECORDS SUMMARY | 2025-02-19 11:21 | XMS_ITS | Clinical Summary ---
Author Organization [employer] Address [address] [facility] 7t [place] [address] Care Team Providers Care Supervisor Powder And Primer Canning Name Role Phone Cristy Monet MD Primary [...] for wheezing. 18 g 3 4 Active acetaminophen (Tylenol 8 Hour) 650 MG ER tablet Take 650 mg by mouth every 8 (eight) hours if needed for mild pain. Do not crush, chew, or split. Active pyridoxine (Vitamin B-6) 50 MG tablet Take 1 tablet by mouth Once per day. 4 Active metoprolol tartrate (Lopressor) 25 MG tabletIndication s:HTN (hypertension), benign TAKE 1 TABLET BY MOUTH TWICE DAILY IN THE MORNING AND IN THE EVENING 180 tablet 2 5 Active amLODIPine (Norvasc) 5 MG tablet Take 1 tablet (5 mg) by mouth Once per day. 30 tablet 11 01/27/2025 12:11 PM EST 5 026 Active cloNIDine (Catapres) 0.1 MG tabletIndication s:Resistant hypertension TAKE 1 TABLET BY MOUTH nightly 30 tablet 11 01/27/2025 12:11 PM EST 5 Active aspirin 81 MG EC tablet Take 1 tablet (81 mg) by mouth Once per day. 30 tablet 11 01/27/2025 12:11 PM EST 5 026 Active citalopram (CeleXA) 20 MG tablet Take 1 tablet (20 mg) by mouth Once per day. 30 tablet 5 Active Blood Pressure Monitoring (Blood Pressure Cuff) misc Use daily as prescribed 1 each 5 Active losartan (Cozaar) 100 MG tablet TAKE 1 TABLET BY MOUTH EVERY MORNING 90 tablet 1 5 Active hydroCHLOROthiaz megan (HYDRODiuril) 25 MG tablet TAKE 1 TABLET BY MOUTH EVERY MORNING 90 tablet 1 5 Active ARIPiprazole (Abilify) 5 MG tablet Take 1 tablet (5 mg) by mouth with evening meal. 30 tablet 1 5 Active hydroxychloroqui ne (Plaquenil) 200 MG tablet TAKE 1 TABLET BY MOUTH ONCE DAILY SUNDAY THROUGH SUNDAY AND TAKE 1 TABLET TWICE DAILY SUNDAY AND SUNDAY Active Incruse Ellipta 62.5 MCG/ACT aerosol powder INHALE 1 PUFF BY MOUTH EVERY DAY AT THE SAME TIME RINSE MOUTH AFTER USING 30 each 11 01/27/2025 12:11 PM EST 5 Active omeprazole (PriLOSEC) [address] capsule TAKE 1 CAPSULE BY MOUTH TWICE DAILY IN THE MORNING AND IN THE EVENING BEFORE MEALS 60 capsule 1 01/27/2025 12:11 PM EST 5 Active Calcium Carb-Cholecalcif fred 600-10 MG-MCG tablet Take 1 tablet by mouth 2 times daily. 5 Active letrozole (Femara) 2.5 MG chemo tablet Take 2.5 mg by mouth in the morning. 5 Active Calcium Carb-Cholecalcif fred (Oyster Shell Calcium w/D) 500-5 MG-MCG tablet TAKE 1 TABLET BY MOUTH TWICE DAILY IN THE MORNING AND IN THE EVENING 180 tablet 3 5 025 Discontin ued(Dose adjustmen t) Active Problems Problem Noted Date Diagnosed Date [...] this year, borders were negative Follow-up with PATHOLOGICAL TECHNICIAN in 6 months Memory impairment 07/14/2024 Assessment & Plan (08/22/2024 11:00 AM EDT): Doing well on aspirin 81 mg, tolerates well. Advised to optimal control risk factors as mentioned at previous visit. His CT scan of the brain is normal, not showing microvascular changes. She has a BRAZING MACHINE TENDER to help her with ADLs and remind [...] Stable managed with beta cayla Substance abuse ([facility] 01/04/2024 Assessment & Plan (08/22/2024 10:58 AM [...] twice daily Will check regarding referral to banquet lead due to resistant hypertension (8 was done [...] seems to be better controlled, seen by cutter out Assessment & Plan (06/27/2023 10:39 AM EDT): - seen by rheumatology, reminded her to get labs done today and f/u with cutter out Assessment & Plan (06/27/2023 9:57 AM EDT): [...] refer to rheumatology in [facility] to improve compliance w/ appointment Assessment & [...] Encounters Date Type Department Care Team Description 02/18/2025 Orders Only GENERIC EXTERNAL DATA DEPARTMENT Provider, Generic External Data 02/12/2025 11:30 AM EST Telemedicine [facility] [address] [place] [address] Sung Rand, PharmD HTN (hypertension), benign (Primary Dx) 01/02/2025 Refill [facility] [address] [place] [address] Cristy Monet MD 12/25/2024 Orders Only [facility] External Provider, [facility] 12/16/2024 Telephone [facility] [address] [place] [address] Cristy Monet MD 12/16/2024 Telephone [facility] [address] [place] [address] Cristy Monet MD 12/11/2024 11:00 AM EDT Telemedicine [facility] [address] [place] [address] Sung Rand, PharmD Primary hypertension (Primary Dx) 12/02/2024 Refill [facility] [address] [place] [address] Cristy Monet MD from Last 3 Months [...] Sign Reading Time Taken Comments Blood Pressure 135/84 02/12/2025 11:50 AM EST [employer] [facility] Monitor (Televisit) Pulse 99 02/12/2025 11:50 AM EST Temperature 36.2 C (97.1 F) 08/22/2024 10:28 [...] Care Team (Late st Contact Info) Description 03/16/2025 11:00 AM EST Office Visit [facility] [address] [place] [address] Filemon, [place], OD [address] [place] [address] Health Maintenance Due Date Last Done Comments CT Colonography 1955 FIT DNA/Cologuard 1955 FIT 1955 FOBT 1955 Sigmoidoscopy 1955 Alcohol/Substance Use Screening 1969 Hepatitis A Vaccines (1 of 2 - Risk 2-dose series) 1976 RSV Patients and Patients Aged 60 years or older (1 - Risk 50-74 years 1-dose series) 10/12/2007 Pneumococcal Vaccine: 50+ Years (2 of 2 - PCV) 08/11/2013 08/11/2012, 11/25/2008, 10/17/2007 Zoster Vaccines (2 of 2) 12/26/2022 10/31/2022 [...] Procedure Name Priority Date/Time Associated Diagnosis Comments COMPREHENSIVE METABOLIC PANEL Routine 02/18/2025 11:31 AM EST CBC WITH AUTO DIFFERENTIAL Routine 02/18/2025 11:31 AM EST BD DEXA AXIAL Routine 12/25/2024 11:45 AM EDT BI MAMMOGRAM DIAGNOSTIC TOMOSYNTHESIS LEFT Routine 11/05/2024 8:47 AM EDT HM COLONOSCOPY Routine 12/25/2023 LIPID PANEL, STANDARD Routine 12/19/2023 9:22 AM EDT HEPATITIS PANEL, GENERAL Routine 12/04/2023 9:36 AM EDT Encounter for preventive health examination THINPREP IMAGING PAP REFL HPV MRNA(IF ASCUS,ASC-H,LSIL) Routine 10/18/2023 10:43 AM EDT from Last 3 Months or Most Recently Relevant to Health Maintenance Results * (ABNORMAL) CBC auto differential (02/18/2025 11:31 AM EST) White Blood Count 7.2 4.8 - 10.8 X10*3/uL [facility] Red Blood Count 3.93(L) 4.20 - 5.50 X10*6/uL [facility] Hemoglobin 12.5 12.0 - 16.0 g/dl [facility] Hematocrit 35.7(L) 37.0 - 47.0 % [facility] Mean Corpuscular Volume 90.8 80.0 - 98.0 fL [facility] Mean Corpuscular Hemoglobin 31.8 27.0 - 33.0 pg [facility] Mean Corpuscular HGB Conc 35.0 31.0 - 35.0 g/dl [facility] Red Cell Distribution Width 11.7 11.0 - 16.0 % [facility] Platelet Count 293 160 - 400 X10*3/uL [facility] Mean Platelet Volume 8.6(L) 9.4 - 12.3 fL [facility] Neutrophils Percent Auto 63.5 45 - 73 % [facility] Imm Gran Pct Auto 0.3 0.0 - 0.4 % [facility] Lymphocytes Percent Auto 24.9 20 - 40 % [facility] Monocytes Percent Auto 9.5 2 - 11 % [facility] Eosinophils Percent Auto 1.2 0 - 4 % [facility] Basophils Percent Auto 0.6 0 - 2 % [facility] NRBC Pct Auto 0.0 0.0 - 0.2 /100WBC [facility] Neutrophils Absolute Auto 4.6 2.0 - 8.3 x10*3/uL [facility] Imm Gran Abs Auto 0.02 0.00 - 0.03 X10*3/uL [facility] Lymphocytes Absolute Auto 1.8 1.2 - 4.9 X10*3/uL [facility] Monocytes Absolute Auto 0.7 0.1 - 1.2 X10*3/uL [facility] Eosinophils Absolute Auto 0.1 0.0 - 0.4 X10*3/uL [facility] Basophils Absolute Auto 0.0 0.0 - 0.2 X10*3/uL [facility] NRBC Abs Auto 0.000 0.0 - 0.012 X10*3/uL [facility] 02/18/2025 11:3 1 AM EST 02/18/2025 11:31 AM EST us Generic External Data Provider LAB BLOOD ORDERAB LES Final Result [facility] [address] [place], [place] [phone] * (ABNORMAL) Comprehensive Metabolic Panel (02/18/2025 11:31 AM EST) Sodium 129(L) 135 - 145 mmol/L [facility] Potassium 3.9 3.3 - 5.1 mmol/L [facility] Chloride 95(L) 96 - 108 mmol/L [facility] Carbon Dioxide 25 22 - 29 mmol/L [facility] Anion Gap 13 12 - 20 [facility] Urea Nitrogen (BUN) 19(H) 9 - 16 mg/dL [facility] Creatinine, Serum 0.99 0.5 - 1.4 mg/dL [facility] Creatinine Clr Calc Pharmacy TNP [facility] Comment:Unable to calculate eCrCL; all parameters not provided. Estimated Glomerular Filt Rate 56 [facility] Comment:Chronic Kidney Disea se: Estimated GFR < 60 mL/min/[id number] Kidney Disease: Estimated GFR < 15 mL/min/1.73m2 Glucose 96 60 - 115 mg/dL [facility] Calcium 9.0 8.4 - 10.2 mg/dL [facility] Bilirubin, Total 0.4 0.0 - 1.0 mg/dL [facility] Aspartate Amino Transferase 30 5 - 31 U/L [facility] Alanine Aminotransferase 11 0 - 31 U/L [facility] Total Protein 7.0 6.5 - 8.0 g/dL [facility] Albumin Level 4.3 3.5 - 5.0 g/dL [facility] Alkaline Phosphatase 135(H) 39 - 117 U/L [facility] 02/18/2025 11:3 1 AM EST 02/18/2025 11:31 AM EST us Generic External Data Provider LAB BLOOD ORDERAB LES Final Result [facility] [address] [place] [address] [phone] * BD DEXA Axial (12/25/2024 11:45 AM EDT) Anatomical Region Laterality Modality Body Radiographic Yasmeen ging 12/25/2024 11:4 5 AM EDT Narrative 12/25/2024 1:11 PM EDT [facility] [address] [place] [address] Mammography Report Signed Patient: Delilah Sevilla MR#: [id number] 39 : 1955 Acct:[id number] Age/Sex: 69 / F ADM Date: 12/25/24 Loc: MIRNA Attending Dr: Virgilio Parkinson MD Ordering Physician: Virgilio Parkinson MD Results: Date of Service: 12/25/24 Follow Up: Procedure(s): XR DEXA axial skeleton Accession Number(s): [id number] cc: Cristy Monet MD; Virgilio Parkinson MD Reason For Exam: Osteopenia EXAMINATION: DXA BONE DENSITY AXIAL HISTORY: Osteopenia TECHNIQUE: Mesuro Dual energy absorptiometry (DEXA) of the lumbar [...] is a trademark of the [employer] [place] for Metabolic Bone Disease, a World Health Organization (WHO) Collaborating Center. Electronically signed by: Oliverio Lind MD 12/25/2024 01:08 PM EDT RP Dictated By: Oliverio Lind MD Signed By: <Electronically signed by Oliverio Lind MD in OV> 12/25/24 1308 DD/ 1145 TD/TT: 12/25/24 1204 Die Mounter: Procedure Note Donotuseinterpreter, Image - 12/25/2024 [facility] [place] [address] Mammography Report Signed Patient: Delilah Sevilla#: [id number] 39 : 8Acct:[id number] Age/Sex: 69 / FADM Date: 12/25/24 Loc: HO.MAMMO Attending Dr: Virgilio Parkinson MD Ordering Physician: Virgilio Parkinsonesults: Date of Service: 12/25/24Follow Up: Procedure(s): XR DEXA axial skeleton Accession Number(s): [id number] cc: Cristy Monet MD; Virgilio Parkinson MD Reason For Exam: Osteopenia EXAMINATION: DXA BONE DENSITY AXIAL HISTORY: Osteopenia TECHNIQUE: Mesuro Dual energy absorptiometry (DEXA) of the lumbar [...] is a trademark of the [employer] [place] for Metabolic Bone Disease, a World Health Organization (WHO) Collaborating Center. Electronically signed by: Oliverio Lind MD 12/25/2024 01:08 PM EDT Dictated By: Oliverio Lind MD Signed By: <Electronically signed by Oliverio Lind MD in OV> 12/25/24 1308 DD/ 1145 TD/TT: 12/25/24 1204 Die Mounter: [facility] External Provider IMG DXA PROCEDURES Edited Result - Final * BI Mammogram Diagnostic Tomosynthesis Left (11/05/2024 8:47 AM EDT) Anatomical Region Laterality Modality Breast Left Mammography 11/05/2024 8:47 AM EDT Narrative 11/05/2024 11:58 AM EDT [facility] [address] [place], [place] [address] Mammography Report Signed with Addkevin Patient: Delilah Sevilla MR#: [id number] 39 : 1955 Acct:[id number] Age/Sex: 69 / F ADM Date: 11/05/24 Loc: HO.MAMMO Attending Dr: Leo Sevilla MD Ordering Physician: Leo Sevilla MD Results: Date of Service: 11/05/24 Follow Up: Procedure(s): MM tomosynthesis diagnostic LT Accession Number(s): [id number] cc: Cristy Monet MD; Leo Sevilla MD [...] by Elda Graham DO in OV> 11/13/24 08 Addendum Cosigned By: [...] 11/05/24 1155 DD/ 0847 TD/TT: 11/05/24 1000 Die Mounter: Procedure Note Donotuseinterpreter, Image - 11/17/2024 [facility] [address] [place] [address] Mammography Report Signed with Alta Patient: Ai Sevilla#: [id number] 39 : 8Acct:[id number] Age/Sex: 69 / FADM Date: 11/05/24 Loc: HO.MAMMO Attending Dr: Leo Sevilla MD Ordering Physician: Leo Sevilla MDResults: Date of Service: 11/05/24Follow Up: Procedure(s): MM tomosynthesis diagnostic LT Accession Number(s): [id number] cc: Cristy Monet MD; Leo Sevilla MD [...] DO 11/05/2024 11:55 AM EDT Dictated By: lEda Graham DO Signed By: <Electronically signed by Elda Graham DO in OV> 11/05/24 1155 DD/ 0847 TD/TT: 11/05/24 1000 Die Mounter: [facility] External Provider IMG BI PROCEDURES Edited Result - Final * (ABNORMAL) Hm Colonoscopy (12/25/2023) Colonoscopy Abnormal( A) Normal [facility] Comment:TA + hyperplastic po lyps Cristy Monet MD HEALTH MAINTENANCE Final Result Performing Organization Address [facility] Co de Phone Number [facility] [address] [place] [phone] * (ABNORMAL) Lipid Panel, Standard (12/19/2023 9:22 AM EDT) Triglycerides 79 <150 mg/dL [facility] Comment:Desirable Triglyceri de: less than 150 mg/dLBorderline High Triglyceride 150-199 mg/dLHigh Triglyceride: 200-499 mg/dLVery High Triglyceride: greater than or equal to 5OO mg/dL Cholesterol 224(H) <200 mg/dL [facility] Comment:Desirable Cholestero l: less than 200 mg/dLBorderline High Cholesterol: 200-239 mg/dLHigh Cholesterol: greater than 239 mg/dL LDL Cholesterol Calculated 117(H) <100 mg/dL [facility] Comment:Desirable LDL: less than 100 mg/dLNear Optimal/Above Optimal LDL: 110- 129 mg/dLBorderline High LDL: 130-159 mg/dLHigh LDL: 160-189 mg/dLVery High LDL: greater than or equal to 190 mg/dL HDL Cholesterol 92 >40 mg/dL [facility] Comment:Desirable HDL: great er than 40 mg/dL Note: This HDL assay may give artificially low results in patients with liver disease. 12/19/2023 9:22 AM EDT 12/19/2023 11:43 AM EDT Cristy Monet MD LAB BLOOD ORDERABLES Fin al Result [facility] [address] [place] [address] [phone] * Hepatitis Panel, General (12/04/2023 9:36 AM EDT) Pathologist [facility] Hepatitis A IgM Nonreactive Nonreactive [facility] Comment:IgM antibodies to MARTINES V not detected; does not exclude earlyacute or recovered HAV infection. ~Hepatitis B Surface Antibody REACTIVE Nonreactive [facility] Comment:REACTIVE: > 11.99 mI U/mL Hepatitis B Core Antibody Nonreactive Nonreactive [facility] Hepatitis C Antibody Nonreactive Nonreactive [facility] Comment:Antibodies to HCV no t detected; does not exclude early acuteHCV infection. Hepatitis B Surface Ag Negative Negative [facility] Blood 12/04/2023 9:36 AM EDT 12/04/2023 11:01 AM EDT Cristy Monet MD LAB BLOOD ORDERABLES Fin al Result Performing Organization Address [facility]/State/ZIP Co de Phone Number [facility] [address] [place] [address] [phone] * (ABNORMAL) ThinPrep?? Imaging Pap Refl HPV mRNA(if ASCUS,ASC- H,LSIL,HSIL,TWILA)Refl Genotype (10/18/2023 10:43 AM EDT) [facility] HPV nRNA E6/E7 Detected(A ) Not Detected [facility] Comment:Methodology: Transcr iption-Mediated AmplificationThis assay detects E6/E7 viral messenger RNA (mRNA) from 14high-risk HPV types (16,18,31,33,35,39,45,51,52,56,58,59,66,68).Cervical sources are required for HPV testing.If a vaginal source from a patient who has had atotal hysterectomy with removal of cervix wassubmitted, please contact the testing laboratoryfor alternative testing options.For additional information, please refer [email or web address]/DGT796t9(This link if provided for information/educational purposes only.)THIS TEST WAS PERFORMED AT:[facility] [address] [id number] MEDINA MD HPV 16,18/45 NOT DETECTED NOT DETECTED [facility] Comment:Methodology: Transcr iption Mediated AmplificationCervical sources are required for HPV testing.If a vaginal source from a patient who has had atotal hysterectomy with removal of cervix wassubmitted, please contact the testing laboratoryfor alternative testing options.THIS TEST WAS PERFORMED AT:[facility] [address] [phone] MEDINA MD SOURCE: SEE NOTE [facility] Comment:None given Report Status: [facility] Clinical Information: SEE NOTE [facility] Comment:None given LMP: SEE NOTE [facility] Comment:NONE GIVEN Prev. PAP: SEE NOTE [facility] Comment:NONE GIVEN Prev. BX: SEE NOTE [facility] Comment:NONE GIVEN Statement Of Adequacy: SEE NOTE [facility] Comment:Satisfactory for naheed luation.Endocervical/transformation zone componentpresent. General Categorization: SEE NOTE(A) [facility] Comment:Cytology Results: Ep ithelial Cell Abnormality Interpretation/Result: SEE NOTE(A) [facility] Comment:Atypical Squamous Ce lls of UndeterminedSignificance (ASC-US) Cytology Comment SEE NOTE [facility] Comment:This Pap test has be en evaluated with computerassisted technology. Saw Boss: SEE NOTE [facility] Comment:DCR, CT(ASCP)CT scre ening location: [address] [address] Review Saw Boss: [facility] Pathologist SEE NOTE [facility] Comment:Valerio Romero M.D./M.S .,Board Certified in Anatomic Pathology andBoard Eligible Cytopathology(electronic signature)Consulting Pathologist[address] [phone] PAP Infection [facility] See Note SEE NOTE [facility] Comment:EXPLANATORY NOTE:The Pap is a screening test for cervical cancer. It isnot a diagnostic test and is subject to false negativeand false positive results. It is most reliable when asatisfactory sample, regularly obtained, is submittedwith relevant clinical findings and history, and whenthe Pap result is evaluated along with historic andcurrent clinical information.THIS TEST WAS PERFORMED AT:[facility]ATOM[facility] PATH[facility] [place] [address]AHUFTLETICIA REYEZ MD 10/18/2023 10:4 3 AM EDT 10/18/2023 4:30 PM EDT Narrative [facility] - 10/31/2023 11:52 AM EDT SEE SCANNED RESULTS IN EMR Cristy Monet MD LAB CYTOLOGY ORDERABLES Final Result [facility] [address] [place] [address] [phone] from Last 3 Months or Most Recently Relevant to Health Maintenance Insurance [facility] OPTIONS (HMO D-SNP) [facility] STANDARD Care Teams Supervisor Powder And Primer Canning Relationship Specialty Start Date End Date Cristy Monet MD [address] [place] [address] PCP - General Family Medicine 12/12/19 Sung Rand, DeaD [address] [place] [address] Pharmacist Internal Medicine 05/27/24
--- OUTSIDE RECORDS SUMMARY | 2025-02-19 11:21 | XMS_ITS | Encounter Summary ---
Author Organization [employer] Address [address] [facility] [address] [place] [address] Care Team Providers Care Wood Crafter Name Role Phone Cristy Monet MD Primary Care Provider + Sung Rand PharmD Unavailable [phone] Encounter Details Date Type Department Care Team (Late Contact Info) Description 03/28/2022 Orders Only [facility] [address] [place] [address] Odilia Smiley LPN Social History Tobacco Use [...] Department Care Team (Late Contact Info) Description 03/16/2025 11:00 AM EST Office Visit [facility] OPTOMETRY [address] [place] [address] Filemon, [place], OD [address] [place] [address] documented as of this encounter Visit Diagnoses Not on filedocumented in this encounter Care Teams Wood Crafter Relationship Specialty Start Date End Date Cristy Monet MD [address] [place] [address] PCP - General Family Medicine 12/12/19 Sung Rand, PharmD [address] [place] [phone] Pharmacist Internal Medicine 05/27/24 documented as of this encounter
--- OUTSIDE RECORDS SUMMARY | 2025-02-19 11:21 | XMS_ITS | Encounter Summary ---
Author Organization [employer] Address [address] [facility] [address]t [place] [address] Care Team Providers Care Shoemaker Apprentice Name Role Phone Cristy Monet MD Primary Care Provider + Sung Rand PharmD Unavailable [phone] Reason for Visit * Reason Comments Med Refill Encounter Details Date Type Department Care Team ([facility] st Contact Info) Description 01/14/2024 Refill [facility] MEDICINE [address] [place], [place] [phone] Crisyt Monet MD [address] [place], [place] [phone] Social History Tobacco Use Types Packs/Day Years [...] Description 03/16/2025 11:00 AM EST Office Visit [facility] OPTOMETRY [address] [place] [address] [place], OD [address] [place] [address] documented as of this encounter Visit Diagnoses Not on filedocumented in this encounter Care Teams Shoemaker Apprentice Relationship Specialty Start Date End Date Cristy Monet MD [address] [place] [address] PCP - General Family Medicine 12/12/19 Sung Rand, Bill [address] [place] [phone] Pharmacist Internal Medicine 05/27/24 documented as of this encounter
--- OUTSIDE RECORDS SUMMARY | 2025-02-19 11:21 | XMS_ITS | Encounter Summary ---
Author Organization [employer] Address [address] [facility] [address] [place] [address] Care Team Providers Care Grain Commodity Manager Name Role Phone Cristy Monet MD Primary Care Provider + Sung Rand PharmD Unavailable [phone] Encounter Details Date Type Department Care Team (Late st Contact Info) Description 04/17/2024 Orders Only [facility]IC[facility] [address] [place], [place] [phone] ProviderIda MD Social History Tobacco Use Types [...] Description 03/16/2025 11:00 AM EST Office Visit [facility] OPTOMETRY [address] [place], [place] [phone] [place] Colbert, OD [address] [place] [address] documented as of this encounter Procedures Procedure Name Priority Date/Time Associated Diagnosis Comments COLPOSCOPY Routine 04/14/2024 3:06 PM EST documented in this encounter Results * Colposcopy (04/14/2024 3:06 PM EST) us Historical Provider IN CLINIC/BEDSIDE ORDERAB LES Final Result documented in this encounter Visit Diagnoses Not on filedocumented in this encounter Care Teams Grain Commodity Manager Relationship Specialty Start Date End Date Cristy Monet MD [address] [place] [address] PCP - General Family Medicine 12/12/19 Sung Rand, DaeD [address] [place], [place] [phone] Pharmacist Internal Medicine 05/27/24 documented as of this encounter
--- OUTSIDE RECORDS SUMMARY | 2025-02-19 11:21 | XMS_ITS | Encounter Summary ---
Author Organization [employer] Address [address] [facility] [address] [facility] [address] [place] [address] Care Team Providers Care Research Compliance Specialist Name Role Phone Cristy Monet MD Primary Care Provider + Sung Rand PharmD Unavailable [phone] Reason for Visit * Reason Comments Med Refill Encounter Details Date Type Department Care Team ([facility] st Contact Info) Description 02/03/2024 Refill [facility] [address] [place], [place] [phone] Niru Oakes MD [address] [place], [place] [phone] Resistant hypertension Social History Tobacco Use Types [...] Description 03/16/2025 11:00 AM EST Office Visit [facility] OPT[facility] [address] [place], [place] [phone] [place] Colbert, OD [address] [place] [address] documented as of this encounter Visit Diagnoses Diagnosis Resistant hypertension documented in this encounter Care Teams Research Compliance Specialist Relationship Specialty Start Date End Date Cristy Monet MD [address] [place] [address] PCP - General Family Medicine 12/12/19 Sung Rand, Bill [address] [place] [address] Pharmacist Internal Medicine 05/27/24 documented as of this encounter
--- OUTSIDE RECORDS SUMMARY | 2025-02-19 11:21 | XMS_ITS | Encounter Summary ---
Author Organization [employer] Address [address] [place] [address] Care Team Providers Care Face And Fill Packer Name Role Phone Cristy Monet MD Primary Care Provider + Sung Rand PharmD Unavailable [phone] Encounter Details Date Type Department Care Team (Late st Contact Info) Description 06/09/2024 Orders Only [facility] [address] [place], [place] [phone] ProviderIda MD Social History Tobacco Use Types [...] Description 03/16/2025 11:00 AM EST Office Visit [facility] OPTOMETRY [address] [place], [place] [phone] [place] trevino, OD [address] [place] [address] documented as of this encounter Procedures Procedure Name Priority Date/Time Associated Diagnosis Comments BIOPSY CERVIX Routine 05/02/2024 11:47 AM EST documented in this encounter Results * Biopsy cervix (05/02/2024 11:47 AM EST) us Historical Provider IN CLINIC/BEDSIDE ORDERAB LES Final Result documented in this encounter Visit Diagnoses Not on filedocumented in this encounter Care Teams Face And Fill Packer Relationship Specialty Start Date End Date Cristy Monet MD [address] [place] [address] PCP - General Family Medicine 12/12/19 Sung Rand PharmD [address] [place] [address] Pharmacist Internal Medicine 05/27/24 documented as of this encounter
--- OUTSIDE RECORDS SUMMARY | 2025-02-19 11:21 | XMS_ITS | Encounter Summary ---
Author Organization [employer] [facility] Address [address] [facility] [address] [place] [address] Care Team Providers Care Math Tutor Name Role Phone Cristy Monet MD Primary Care Provider + Sung Rand PharmD Unavailable [phone] Encounter Details Date Type Department Care Team (Late Contact Info) Description 07/07/2022 Orders Only [facility] MED[facility] [address] [place] [address] Odilia Smiley LPN Social History Tobacco Use [...] Description 03/16/2025 11:00 AM EST Office Visit [facility] OPTOMETRY [address] [place], [place] [phone] Filemon, [place], OD [address] [place] [address] documented as of this encounter Procedures Procedure Name Priority Date/Time Associated Diagnosis Comments BI MAMMOGRAM SCREENING TOMOSYNTHESIS BILATERAL Routine 07/07/2022 1:05 PM EDT documented in this encounter Results * BI Mammogram Screening Tomosynthesis Bilateral (07/07/2022 1:05 PM EDT) Anatomical Region Laterality Modality Breast Bilateral Mammography 07/07/2022 1:05 PM EDT Narrative 07/10/2022 1:12 PM EDT [facility] [address] [place] [address] Mammography Report Signed Patient: Delilah Sevilla MR#: [id number] 39 : 1955 Acct:[id number] Age/Sex: 66 / F ADM Date: 07/07/22 Loc: HO.MAMMO Attending Dr: Cristy Monet MD Ordering Physician: Cristy Monet MD Results: 2Be nign Findings Date of Service: 07/07/22 Follow Up: 1 Year From Orig inal Mammogram Procedure(s): MM tomosynthesis screening BI Accession Number(s): [id number] cc: Cristy Monet MD EXAMINATION: MM SCREENING [...] in OV> 07/10/22 1309 DD/ 1305 TD/TT: Skill Training Program Coordinator: ACOSTA Procedure Note Donotuseinterpreter, Image - 08/31/2022 [facility] [address] [place] [address] Mammography Report Signed Patient: Ai Sevilla#: [id number] 39 : 8Acct:[id number] Age/Sex: 66 / FADM Date: 07/07/22 Loc: HO.MAMMO Attending Dr: Cristy Monet MD Ordering Physician: Cristy Monet MDResults: 2Be nign Findings Date of Service: 07/07/22Follow Up: 1 Year From Orig inal Mammogram Procedure(s): MM tomosynthesis screening BI Accession Number(s): [id number] cc: Cristy Monet MD EXAMINATION: MM SCREENING [...] in OV> 07/10/22 1309 DD/ 1305 TD/TT: Skill Training Program Coordinator: ACOSTA [facility] External Provider IMG BI PROCEDURES Final Result documented in this encounter Visit Diagnoses Not on filedocumented in this encounter Care Teams Math Tutor Relationship Specialty Start Date End Date Cristy Monet MD [address] [place] [address] PCP - General Family Medicine 12/12/19 Sung Rand PharmD [address] [place] [address] Pharmacist Internal Medicine 05/27/24 documented as of this encounter
--- OUTSIDE RECORDS SUMMARY | 2025-02-19 11:22 | XMS_ITS | Encounter Summary ---
Author Organization [employer] Address [address] [facility] 7[address] [place] [address] Care Team Providers Care Pump Assembler Name Role Phone Cristy Monet MD Primary Care Provider + Sung Rand PharmD Unavailable [phone] Encounter Details Date Type Department Care Team (Late Contact Info) Description 09/13/2022 Orders Only [facility] MEDICINE [address] [place] [address] Cristy Monet MD [address] [place] [address] Hyperkalemia (Primary Dx); Hypercalcemia Social History Tobacco [...] Upcoming Encounters Date Type Department Care Team ([facility] Contact Info) Description 03/16/2025 11:00 AM EST Office Visit [facility] OPTOMETRY [address] [place], [place] [phone] [place] Colbert, OD [address] [place] [address] documented as of this encounter Procedures Procedure Name Priority Date/Time Associated Diagnosis Comments BASIC METABOLIC PANEL Routine 09/25/2022 8:41 AM EDT Hyperkalemia Hypercalcemia documented in this encounter Results * (ABNORMAL) Basic Metabolic Panel (09/25/2022 8:41 AM EDT) Sodium 138 135 - 145 mmol/L [facility] Potassium 5.0 3.3 - 5.1 mmol/L [facility] Chloride 102 96 - 108 mmol/L [facility] Carbon Dioxide 30(H) 22 - 29 mmol/L [facility] Anion Gap 11(L) 12 - 20 [facility] Urea Nitrogen (BUN) 15 9 - 16 mg/dL [facility] Creatinine, Serum 0.78 0.5 - 1.4 mg/dL [facility] Estimated Glomerular Filt Rate >60 [facility] Comment:NOTE: For -Am erican individuals, multiply the result by 1.210.Chronic Kidney Disease: Estimated GFR < 60 mL/min/1.47h5Vxotcu Kidney Disease: Estimated GFR < 15 mL/min/1.73m2 Glucose 96 60 - 115 mg/dL [facility] Calcium 9.6 8.4 - 10.2 mg/dL [facility] Blood Venous blood specimen / Unknown 09/25/2022 8:41 AM EDT 09/25/2022 11:03 AM EDT us Cristy Monet MD LAB BLOOD ORDERABLES Fin al Result [facility] [address] [place] [address] [phone] documented in this encounter Visit Diagnoses Diagnosis Hyperkalemia- Primary Hyperpotassemia Hypercalcemia documented in this encounter Care Teams Pump Assembler Relationship Specialty Start Date End Date Cristy Monet MD [address] [place] [address] PCP - General Family Medicine 12/12/19 Sung Rand, DaeD [address] [place] [address] Pharmacist Internal Medicine 05/27/24 documented as of this encounter
--- OUTSIDE RECORDS SUMMARY | 2025-02-19 11:22 | XMS_ITS | Encounter Summary ---
Author Organization [employer] Address [address] [facility] [address] [place] [address] Care Team Providers Care Knife Operator Name Role Phone Cristy Monet MD Primary Care Provider + Sung Rand PharmD Unavailable [phone] Encounter Details Date Type Department Care Team ([facility] st Contact Info) Description 02/18/2025 Orders Only GENERIC EXTERNAL DATA [...] Description 03/16/2025 11:00 AM EST Office Visit [facility] OPTOMETRY [address] [place] [address] Filemon, [place], OD [address] [place] [address] documented as of this encounter Procedures Procedure Name Priority Date/Time Associated Diagnosis Comments CBC WITH AUTO DIFFERENTIAL Routine 02/18/2025 11:31 AM EST COMPREHENSIVE METABOLIC PANEL Routine 02/18/2025 11:31 AM EST documented in this encounter Results * (ABNORMAL) Comprehensive Metabolic Panel (02/18/2025 11:31 AM EST) Sodium 129(L) 135 - 145 mmol/L [facility] Potassium 3.9 3.3 - 5.1 mmol/L [facility] Chloride 95(L) 96 - 108 mmol/L [facility] Carbon Dioxide 25 22 - 29 mmol/L [facility] Anion Gap 13 12 - 20 [facility] Urea Nitrogen (BUN) 19(H) 9 - 16 mg/dL [facility] Creatinine, Serum 0.99 0.5 - 1.4 mg/dL [facility] Creatinine Clr Calc Pharmacy TNP [facility] Comment:Unable to calculate eCrCL; all parameters not provided. Estimated Glomerular Filt Rate 56 [facility] Comment:Chronic Kidney Disea se: Estimated GFR < 60 mL/min/1.88f2Auzvfb Kidney Disease: Estimated GFR < 15 mL/min/1.73m2 Glucose 96 60 - 115 mg/dL [facility] Calcium 9.0 8.4 - 10.2 mg/dL [facility] Bilirubin, Total 0.4 0.0 - 1.0 mg/dL [facility] Aspartate Amino Transferase 30 5 - 31 U/L [facility] Alanine Aminotransferase 11 0 - 31 U/L [facility] Total Protein 7.0 6.5 - 8.0 g/dL [facility] Albumin Level 4.3 3.5 - 5.0 g/dL [facility] Alkaline Phosphatase 135(H) 39 - 117 U/L [facility] 02/18/2025 11:3 1 AM EST 02/18/2025 11:31 AM EST us Generic External Data Provider LAB BLOOD ORDERAB LES Final Result [facility] [address] [place], [place] [phone] * (ABNORMAL) CBC auto differential (02/18/2025 11:31 AM EST) White Blood Count 7.2 4.8 - 10.8 X10*3/uL [facility] Red Blood Count 3.93(L) 4.20 - 5.50 X10*6/uL [facility] Hemoglobin 12.5 12.0 - 16.0 g/dl [facility] Hematocrit 35.7(L) 37.0 - 47.0 % [facility] Mean Corpuscular Volume 90.8 80.0 - 98.0 fL [facility] Mean Corpuscular Hemoglobin 31.8 27.0 - 33.0 pg [facility] Mean Corpuscular HGB Conc 35.0 31.0 - 35.0 g/dl [facility] Red Cell Distribution Width 11.7 11.0 - 16.0 % [facility] Platelet Count 293 160 - 400 X10*3/uL [facility] Mean Platelet Volume 8.6(L) 9.4 - 12.3 fL [facility] Neutrophils Percent Auto 63.5 45 - 73 % [facility] Imm Gran Pct Auto 0.3 0.0 - 0.4 % [facility] Lymphocytes Percent Auto 24.9 20 - 40 % [facility] Monocytes Percent Auto 9.5 2 - 11 % [facility] Eosinophils Percent Auto 1.2 0 - 4 % [facility] Basophils Percent Auto 0.6 0 - 2 % [facility] NRBC Pct Auto 0.0 0.0 - 0.2 /100WBC [facility] Neutrophils Absolute Auto 4.6 2.0 - 8.3 x10*3/uL [facility] Imm Gran Abs Auto 0.02 0.00 - 0.03 X10*3/uL [facility] Lymphocytes Absolute Auto 1.8 1.2 - 4.9 X10*3/uL [facility] Monocytes Absolute Auto 0.7 0.1 - 1.2 X10*3/uL [facility] Eosinophils Absolute Auto 0.1 0.0 - 0.4 X10*3/uL [facility] Basophils Absolute Auto 0.0 0.0 - 0.2 X10*3/uL [facility] NRBC Abs Auto 0.000 0.0 - 0.012 X10*3/uL [facility] 02/18/2025 11:3 1 AM EST 02/18/2025 11:31 AM EST us Generic External Data Provider LAB BLOOD ORDERAB LES Final Result [facility] [address] [place] [address] [phone] documented in this encounter Visit Diagnoses Not on filedocumented in this encounter Care Teams Knife Operator Relationship Specialty Start Date End Date Cristy Monet MD [address] [place] [address] PCP - General Family Medicine 12/12/19 Sung Rand, DaeD [address] [place], [place] [phone] [address] Pharmacist Internal Medicine 05/27/24 documented as of this encounter
--- OUTSIDE RECORDS SUMMARY | 2025-02-19 11:22 | XMS_ITS | Encounter Summary ---
Author Organization [employer] Address [address] [facility] [address] [place] [address] Care Team Providers Care Teletypewriter Installer Name Role Phone Cristy Monet MD Primary Care Provider + Sung Rand PharmD Unavailable [phone] Encounter Details Date Type Department Care Team ([facility] st Contact Info) Description 09/10/2023 Telephone [facility] MEDICINE [address] [place], [place] [phone] Cristy Monet MD [address] [place], [place] [phone] Social History Tobacco Use Types Packs/Day Years [...] Description 03/16/2025 11:00 AM EST Office Visit [facility] OPTOMETRY [address] [place], [place] [phone] [place] Colbert, OD [address] [place] [address] documented as of this encounter Visit Diagnoses Not on filedocumented in this encounter Care Teams Teletypewriter Installer Relationship Specialty Start Date End Date Cristy Monet MD [address] [place] [address] PCP - General Family Medicine 12/12/19 Sung Rand, DaeD [address] [place] [address] Pharmacist Internal Medicine 05/27/24 documented as of this encounter
== END ==
LOC: HO.CARD 09:39
PROVIDERS: Nurse Practitioner Family; PCP Internal Medicine; Visit Provider Internal Medicine
DX: I25.2 Old myocardial infarction (principal); C50.919 Malignant neoplasm of unspecified site of unspecified female breast; R00.2 Palpitations
CPT/HCPCS: 36415; 80053; 85025; 93225; 93306

== ENCOUNTER → 2025-02-19 09:43 | Outpatient (BNV) | payer OTHER, SELFPAY | PROVIDERS: PCP Internal Medicine; Visit Provider Internal Medicine Cardiovascular Disease | DX: I70.0 Atherosclerosis of aorta (principal) | CPT/HCPCS: 93306 ==